=== PATIENT | male | born 1995 | race African-American/Black ===

== ENCOUNTER 2017-11-08 21:07 | Inpatient (IN) | payer SELFPAY ==
[~2017-11-08] VITALS: Ht 180.3 cm; Wt 68.0 kg
[~2017-11-08 21:07] MED LIST: HUMALOG100 UNITS/ SQ; Insulin Detemir SQ; KLOR-CON M2020 MEQ PO; LEVEMIR100 UNIT/1 SC; NOVOLIN R100 UNIT/1; NOVOLOG100 UNIT/1 SC
[2017-11-08] MEDS ORDERED: SODIUM CHLORIDE 0.9% 1000ML 1,000 ML IV STA (21:35)
[2017-11-08] MEDS ORDERED: SODIUM CHLORIDE 0.9% 1000ML 1,000 ML ONE (21:36)
[2017-11-08 21:50] LABS: BASOPHILS # (AUTO) 0.1 (0.0-0.1); BASOPHILS % 0.6 % (0.0-1.0); HEMATOCRIT 53.1 % (38.2-49.6); HEMOGLOBIN 18.2 g/dL (14.0-18.0); LYMPHOCYTES % 6.6 % (18.0-39.1); MEAN CORPUSCULAR HEMOGLOBIN 32.5 pg (28-32); MEAN CORPUSCULAR HGB CONC 34.3 g/dL (31-35); MEAN CORPUSCULAR VOLUME 94.8 fL (81-99); MONOCYTES # (AUTO) 0.7 (0.2-0.8); MONOCYTES % 4.8 % (4.4-11.3); NEUTROPHILS # (AUTO) 13.5 (2.1-6.9); NEUTROPHILS % 87.2 % (38.7-80.0); PLATELET COUNT 268 x10e3/uL (140-360); RED CELL DISTRIBUTION WIDTH 13.3 % (11.7-14.4)
[2017-11-08 21:51] LABS: BILIRUBIN,URINE NEGATIVE (NEGATIVE); KETONES,URINE 3+ (NEGATIVE); LEUKOCYTE ESTERASE ,URINE NEGATIVE (NEGATIVE); NITRITE,URINE NEGATIVE (NEGATIVE); URINE UROBILINOGEN 0.2 mg/dL (0.2 - 1)
[2017-11-08 21:54] LABS: PROTEIN,URINE DIPSTICK 1+ (NEGATIVE)
[2017-11-08 21:55] LABS: CLARITY,URINE SL CLOUDY (CLEAR); COLOR,URINE YELLOW (YELLOW)
[2017-11-08 22:09] LABS: ALANINE AMINOTRANSFERASE 16 IU/L (0-55); ALBUMIN 4.9 g/dL (3.5-5.0); ALKALINE PHOSPHATASE 215 IU/L (40-150); ANION GAP 33.3 mmol/L (8-16); BLOOD UREA NITROGEN 9 mg/dL (7-26); BUN/CREATININE RATIO 6 (6-25); CALCIUM 9.7 mg/dL (8.4-10.2); CHLORIDE 106 mmol/L (98-107); CREATINE KINASE 40 IU/L (30-200); CREATININE, SERUM 1.63 mg/dL (0.72-1.25); EST GLOMERULAR FILTRATION RATE > 60 ML/MIN (60-); POTASSIUM 3.3 mmol/L (3.5-5.1); SODIUM 141 mmol/L (136-145)
[2017-11-08 22:10] LABS: TROPONIN I 0.011 ng/mL (0-0.300)
[2017-11-08 22:11] LABS: BACTERIA,URINE RARE /HPF; EPITHELIAL CELLS,URINE RARE /LPF; RBC,URINE 0-5 /HPF (0-5)
[2017-11-08 22:15] LABS: CARBON DIOXIDE 5 mmol/L (22-29); GLUCOSE 425 mg/dL (74-118)
--- NOTE | 2017-11-08 22:25 | Diagnostic Imaging Report ---
CHEST SINGLE (PORTABLE), 11/08/2017 9:59 PM Technique: CHEST SINGLE (PORTABLE) Comparison: None available. Clinical history: 01/01/2017 Findings: Unremarkable appearance of the heart, mediastinum, lungs and pleural spaces. Impression: 1. Lines/Tubes: None 2. No acute abnormality. Signed by: Dr Ellen Haro MD on 11/08/2017 10:22 PM
[2017-11-08 22:26] LABS: ABG PH 7.01 (7.31-7.41)
[2017-11-08] MEDS ORDERED: INSULIN DETEMIR 100 UNIT/ML PEN SQ PRN (22:30)
[2017-11-08] MEDS ORDERED: POTASSIUM CHLORIDE 20MEQ/100ML 200 ML IV PRN (22:30)
[2017-11-08] MEDS ORDERED: DEXTROSE 50% SYRINGE 50 ML IV PRN (22:30)
[2017-11-08] MEDS ORDERED: MAGNESIUM SULF 1GRAM/DEXTROSE 100 ML IV PRN (22:30)
[2017-11-08] MEDS ORDERED: KCL 20MEQ/.9 SOD CHL 1,000 ML IV ONE (22:45)
[2017-11-08] MEDS: INSULIN REGULAR, HUMAN 3ML VL 300 UNIT in SODIUM CHLORIDE 0.45% 100 ML 300 ML IV SCH ×2 (22:55)
[2017-11-08] MEDS: SODIUM CHLORIDE 0.9% 1000ML 1,000 ML IV SCH (22:55)
[2017-11-08] MEDS ORDERED: CEFTRIAXONE SOD 1 GM VIAL IV STA (23:06)
[2017-11-08] MEDS ORDERED: MORPHINE SULFATE 2 MG/ML SYR IV PRN (23:15)
[2017-11-09] MEDS: INSULIN REGULAR, HUMAN 3ML VL 300 UNIT in SODIUM CHLORIDE 0.45% 100 ML 300 ML IV SCH ×8 (00:04→05:15)
[2017-11-09] MEDS: SODIUM CHLORIDE 0.9% 1000ML 1,000 ML IV SCH ×5 (02:35→23:25)
[2017-11-09 03:20] LABS: BLOOD UREA NITROGEN 7 mg/dL (7-26); BUN/CREATININE RATIO 6 (6-25); CALCIUM 8.6 mg/dL (8.4-10.2); CHLORIDE 118 mmol/L (98-107); CREATININE, SERUM 1.19 mg/dL (0.72-1.25); EST GLOMERULAR FILTRATION RATE > 60 ML/MIN (60-); GLUCOSE 240 mg/dL (74-118); MAGNESIUM 1.8 MG/DL (1.3-2.1); SODIUM 140 mmol/L (136-145)
[2017-11-09 03:21] LABS: CARBON DIOXIDE 6 mmol/L (22-29)
[2017-11-09] MEDS: DEXTROSE 5%/0.45% SOD CHL 1,000 ML IV SCH ×4 (04:14→10:12)
[2017-11-09] MEDS: ONDANSETRON HCL INJ 2 MG/ML VIAL IV PRN ×2 (07:15→22:08)
[2017-11-09 07:20] LABS: TROPONIN I < 0.001 ng/mL (0-0.300)
[2017-11-09 07:24] LABS: ANION GAP 15.3 mmol/L (8-16); BLOOD UREA NITROGEN 6 mg/dL (7-26); BUN/CREATININE RATIO 5 (6-25); CALCIUM 8.7 mg/dL (8.4-10.2); CARBON DIOXIDE 10 mmol/L (22-29); CHLORIDE 116 mmol/L (98-107); CREATINE KINASE 33 IU/L (30-200); CREATININE, SERUM 1.18 mg/dL (0.72-1.25); EST GLOMERULAR FILTRATION RATE > 60 ML/MIN (60-); GLUCOSE 250 mg/dL (74-118); MAGNESIUM 1.8 MG/DL (1.3-2.1); POTASSIUM 3.3 mmol/L (3.5-5.1); SODIUM 138 mmol/L (136-145)
[2017-11-09] MEDS: POTASSIUM CHLORIDE 20MEQ/100ML 100 ML INJ PRN (08:12)
[2017-11-09 10:52] LABS: BASOPHILS % 0.3 % (0.0-1.0); HEMATOCRIT 43.8 % (38.2-49.6); HEMOGLOBIN 15.7 g/dL (14.0-18.0); LYMPHOCYTES # (AUTO) 1.2 (1.0-3.2); LYMPHOCYTES % 12.4 % (18.0-39.1); MEAN CORPUSCULAR HEMOGLOBIN 32.6 pg (28-32); MEAN CORPUSCULAR HGB CONC 35.8 g/dL (31-35); MEAN CORPUSCULAR VOLUME 91.1 fL (81-99); MONOCYTES # (AUTO) 1.1 (0.2-0.8); NEUTROPHILS # (AUTO) 7.4 (2.1-6.9); NEUTROPHILS % 75.6 % (38.7-80.0); PLATELET COUNT 209 x10e3/uL (140-360); RED BLOOD COUNT 4.81 x10e6/uL (4.3-5.7); RED CELL DISTRIBUTION WIDTH 13.2 % (11.7-14.4)
[2017-11-09 11:10] LABS: ANION GAP 14.3 mmol/L (8-16); BLOOD UREA NITROGEN 7 mg/dL (7-26); BUN/CREATININE RATIO 7 (6-25); CALCIUM 8.9 mg/dL (8.4-10.2); CARBON DIOXIDE 12 mmol/L (22-29); CHLORIDE 115 mmol/L (98-107); CREATININE, SERUM 1.02 mg/dL (0.72-1.25); EST GLOMERULAR FILTRATION RATE > 60 ML/MIN (60-); GLUCOSE 215 mg/dL (74-118); MAGNESIUM 1.7 MG/DL (1.3-2.1); POTASSIUM 3.3 mmol/L (3.5-5.1); SODIUM 138 mmol/L (136-145)
[2017-11-09] MEDS ORDERED: DEXTROSE 50% SYRINGE 50 ML IV PRN (11:30)
[2017-11-09] MEDS: CEFTRIAXONE SOD 1 GM in WATER STERILE 10ML VIAL 10 ML IV SCH ×2 (11:45→23:25)
[2017-11-09] MEDS: INSULIN DETEMIR 100 UNIT/ML PEN SQ SCH ×2 (11:55→22:08)
[2017-11-09] MEDS: INSULIN REGULAR, HUMAN 100 UNIT/1 ML 3ML VIAL SQ SCH ×3 (12:25→22:08)
--- NOTE | 2017-11-09 14:24 | History and Physical ---
PRIMARY CARE PROVIDER: Dr. Agustina Ceja at the [facility]. CHIEF COMPLAINT: Abdominal pain with nausea and vomiting. HISTORY OF PRESENT ILLNESS: Mr. Lomeli is a 22-year-old juvenile onset diabetic who has been out of Levemir and unable to fill it due to financial concerns. Has been taking only regular insulin intermittently. Presents now with abdominal pain, nausea, vomiting, and laboratory evidence of DKA. REVIEW OF SYSTEMS: He denies fever, chills or weight loss. He denies sinus congestion or sore throat. He denies chest pain or palpitations. He denies shortness of breath, wheezing or cough. He has generalized abdominal pain with nausea and vomiting. No diarrhea. No melena. He denies dysuria or flank pain. He denies rash or pruritus. He denies joint pain or swelling. He denies headache, vertigo or loss of consciousness. He denies depression, agitation, homicide, or suicidal ideation. 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 He normally takes Levemir 10 units at night and 14 units in the daytime along with regular insulin on sliding scale. He has had no surgery. ALLERGIES: HE HAS NO KNOWN DRUG ALLERGIES. FAMILY HISTORY: Unremarkable. SOCIAL HISTORY: The patient is . [place] is his primary language. He does not smoke, drink or use illegal drugs. He is generally independent functioning. PHYSICAL EXAMINATION PSYCHIATRIC: He is alert and oriented times 3 with normal mood and affect. CONSTITUTIONAL: He has a normal body habitus. He is in no acute distress. VITAL SIGNS: Blood pressure 125/87, pulse 85 and regular, respiratory rate 18, O2 sat 100% on room air, temperature 99.1. HEENT: Head is atraumatic. His eyes are anicteric with clear conjunctivae. Ears and nares are without erythema or discharge. Oropharynx is clear. NECK: Supple. No mass or thyromegaly. LYMPHATIC SYSTEM: He has no palpable cervical, axillary or inguinal adenopathy. CARDIOVASCULAR: His heart has a regular rate and rhythm without murmur or extra heart sounds. He has no carotid bruit. He has no peripheral edema. He has palpable dorsal pedal pulse. RESPIRATORY: Lungs are clear to auscultation and percussion with normal respiratory effort. GASTROINTESTINAL: His abdomen is soft without organomegaly, masses or tenderness. He has normal bowel sounds present. CUTANEOUS: His skin is warm and dry to touch with no rash or skin breakdown. MUSCULOSKELETAL: His joints are in normal alignment without erythema or swelling. He has no calf tenderness. NEUROLOGIC: Nonfocal with intact cranial nerves and no motor or sensory deficits. DIAGNOSTIC STUDIES: Chest x-ray shows no acute disease. His UA shows 6-10 white cells. Urine culture is pending. His troponin is less than 0.001. Blood gas showed a pH of 7.01, CO2 11 and O2 of 138. His chemistry profile showed a potassium 3.3, sodium 141, chloride 106, CO2 5 with an anion gap of 23. Glucose 425. Creatinine 1.63, BUN 9 for a normal GFR. Calcium 9.7. Magnesium 2.1. After hydration and overnight insulin drip, the patient has a potassium of 3.3. The rest of his electrolytes are normal. CO2 is 10. He has a normal anion gap of about 15. His creatinine is 1.178 and BUN 6 for a normal GFR. Calcium 8.7. Glucose 250. Magnesium 1.8. His transaminases and bilirubin are normal. Alk phos is elevated at 215 likely due to hepatic steatosis. His CBC shows a white count of 15.4 with 87% neutrophils, 7% lymphocytes, 5% monocytes. Hemoglobin 18.2, hematocrit 53.1 and platelet count of 268,000. IMPRESSION AND PLAN: Diabetic ketoacidosis. The patient was given initially Levemir 40 unit dose and then started on the diabetic ketoacidosis protocol with reduced insulin dose of 3 units per hour since he is a type 1 diabetic along with the intravenous fluids and D5 as needed. Monitor potassium and magnesium with replacement per protocol. The patient's anion gap has normalized. His CO2 has come up to 5. He has a base met pending at the moment. If his CO2 has improved and his anion gap remains normal, then will stop the insulin drip. Start Levemir and sliding scale insulin, and advance diet and transfer to the floor. Currently, the patient is in the intensive care unit. Sixty minutes of critical care time spent with the patient on this H and P. Job#: [id number] RI
[2017-11-09 16:18] LABS: CREATINE KINASE MB 0.6 ng/mL (0.00-5.00); TROPONIN I 0.002 ng/mL (0-0.300)
[2017-11-09 16:20] VITALS: BP 109/53
[2017-11-09 16:47] VITALS: BP 149/80
[2017-11-09 20:36] VITALS: BP 123/68
[2017-11-09 22:08] VITALS: BP 123/68
[2017-11-09] MEDS ORDERED: CEFTRIAXONE SOD 1 GM VIAL ONE (23:19)
[2017-11-10] VITALS (8 sets, daily range): BP systolic 114–144; BP diastolic 71–91
[2017-11-10] MEDS: INSULIN REGULAR, HUMAN 100 UNIT/1 ML 3ML VIAL SQ SCH ×4 (07:30→21:00)
[2017-11-10 08:04] LABS: BASOPHILS % 0.4 % (0.0-1.0); EOSINOPHILS % 0.1 % (0.0-6.0); HEMATOCRIT 40.8 % (38.2-49.6); LYMPHOCYTES # (AUTO) 1.6 (1.0-3.2); LYMPHOCYTES % 21.5 % (18.0-39.1); MEAN CORPUSCULAR HEMOGLOBIN 32.2 pg (28-32); MEAN CORPUSCULAR HGB CONC 36.8 g/dL (31-35); MEAN CORPUSCULAR VOLUME 87.6 fL (81-99); MONOCYTES # (AUTO) 0.6 (0.2-0.8); MONOCYTES % 8.2 % (4.4-11.3); NEUTROPHILS # (AUTO) 5.1 (2.1-6.9); NEUTROPHILS % 69.4 % (38.7-80.0); PLATELET COUNT 209 x10e3/uL (140-360); RED BLOOD COUNT 4.66 x10e6/uL (4.3-5.7); RED CELL DISTRIBUTION WIDTH 12.7 % (11.7-14.4)
[2017-11-10 08:21] LABS: ANION GAP 17.4 mmol/L (8-16); BLOOD UREA NITROGEN 6 mg/dL (7-26); BUN/CREATININE RATIO 8 (6-25); CALCIUM 8.6 mg/dL (8.4-10.2); CARBON DIOXIDE 22 mmol/L (22-29); CHLORIDE 99 mmol/L (98-107); CREATININE, SERUM 0.76 mg/dL (0.72-1.25); EST GLOMERULAR FILTRATION RATE > 60 ML/MIN (60-); MAGNESIUM 1.5 MG/DL (1.3-2.1); SODIUM 136 mmol/L (136-145)
[2017-11-10] MEDS: ONDANSETRON HCL INJ 2 MG/ML VIAL IV PRN (08:26)
[2017-11-10 08:45] LABS: POTASSIUM 2.4 mmol/L (3.5-5.1)
[2017-11-10 08:46] LABS: GLUCOSE 57 mg/dL (74-118)
[2017-11-10] MEDS: INSULIN DETEMIR 100 UNIT/ML PEN SQ SCH ×2 (09:23→21:00)
[2017-11-10] MEDS ORDERED: POTASSIUM CHL 40 MEQ in WATER STERILE 10ML VIAL 80 ML IV ONE ×2 (09:30→20:00)
[2017-11-10] MEDS ORDERED: POTASSIUM CHLORIDE 20 MEQ TAB CR PO ONE (09:30)
[2017-11-10] MEDS ORDERED: CEFTRIAXONE SOD 1 GM VIAL ONE ×2 (11:49→23:10)
[2017-11-10] MEDS: CEFTRIAXONE SOD 1 GM in WATER STERILE 10ML VIAL 10 ML IV SCH ×2 (11:52→23:28)
[2017-11-10] MEDS: SODIUM CHLORIDE 0.9% 1000ML 1,000 ML IV SCH (12:17)
--- NOTE | 2017-11-10 14:05 | Diagnostic Imaging Report ---
HISTORY: Nausea and abdominal pain TECHNIQUE: Selected static images from complete abdominal ultrasound provided for INTERPRETATION: COMPARISON: None FINDINGS: Pancreas: Visualized portions are normal. No ductal dilatation. Liver: Measures 14.8 cm in sagittal plane. The echotexture is normal. No mass in the visualized portions. Portal Vein: Proper directional flow on spectral Doppler interrogation. Biliary Tree: Normal Gallbladder: No evidence of gallstone or gallbladder wall thickening. CBD: 0.2 cm. Right Kidney: Length is 13.9 cm. Echotexture is increased. No mass or hydronephrosis. Left Kidney: Length is 13.0 cm. Echotexture is increased. No mass or hydronephrosis. Spleen: 9.4cm in length. No evidence for mass. Aorta: Measures 1.5 cm. IVC: Patent No free fluid IMPRESSION: Increased renal echotexture could be the result of dehydration or medical renal disease. No hydronephrosis. The remainder of the visualized abdomen is normal. Signed by: Dr. Eduard Dowd MD on 11/10/2017 2:01 PM
[2017-11-10] MEDS ORDERED: POTASSIUM CHLORIDE 20MEQ/100ML 100 ML IV ONE (18:00)
[2017-11-11] VITALS: BP 127/62
[2017-11-11 04:00] VITALS: BP 136/93
[2017-11-11 06:44] LABS: BASOPHILS % 0.2 % (0.0-1.0); HEMATOCRIT 38.8 % (38.2-49.6); HEMOGLOBIN 14.7 g/dL (14.0-18.0); LYMPHOCYTES # (AUTO) 1.4 (1.0-3.2); LYMPHOCYTES % 27.5 % (18.0-39.1); MEAN CORPUSCULAR HEMOGLOBIN 32.7 pg (28-32); MEAN CORPUSCULAR HGB CONC 37.9 g/dL (31-35); MEAN CORPUSCULAR VOLUME 86.2 fL (81-99); MONOCYTES # (AUTO) 0.6 (0.2-0.8); NEUTROPHILS # (AUTO) 2.9 (2.1-6.9); NEUTROPHILS % 58.7 % (38.7-80.0); PLATELET COUNT 202 x10e3/uL (140-360)
[2017-11-11 07:21] LABS: AMYLASE 25 U/L (25-125); ANION GAP 14.4 mmol/L (8-16); BLOOD UREA NITROGEN 5 mg/dL (7-26); BUN/CREATININE RATIO 8 (6-25); CALCIUM 8.4 mg/dL (8.4-10.2); CARBON DIOXIDE 31 mmol/L (22-29); CHLORIDE 91 mmol/L (98-107); CREATININE, SERUM 0.65 mg/dL (0.72-1.25); EST GLOMERULAR FILTRATION RATE > 60 ML/MIN (60-); GLUCOSE 153 mg/dL (74-118); LIPASE 4 U/L (8-78); SODIUM 134 mmol/L (136-145)
[2017-11-11 07:41] LABS: POTASSIUM 2.4 mmol/L (3.5-5.1)
[2017-11-11] MEDS ORDERED: POTASSIUM CHLORIDE 20MEQ/100ML 100 ML IV ONE (08:00)
[2017-11-11] MEDS: INSULIN REGULAR, HUMAN 100 UNIT/1 ML 3ML VIAL SQ SCH ×4 (08:29→21:30)
[2017-11-11] MEDS: ONDANSETRON HCL INJ 2 MG/ML VIAL IV PRN (08:58)
[2017-11-11] MEDS ORDERED: POTASSIUM CHL IV ONE (09:45)
[2017-11-11] MEDS ORDERED: SODIUM CHLORIDE 0.9% IV ONE (09:45)
[2017-11-11] MEDS: INSULIN DETEMIR 100 UNIT/ML PEN SQ SCH ×2 (09:53→21:30)
[2017-11-11 10:17] LABS: ANISOCYTOSIS SLIGHT; MICROCYTOSIS X; PLATELET ESTIMATE ADEQUATE; RBC MORPHOLOGY COMMENT NORMAL
[2017-11-11 10:18] LABS: PLATELET MORPHOLOGY COMMENT NORMAL
[2017-11-11] MEDS ORDERED: CEFTRIAXONE SOD 1 GM VIAL ONE ×2 (10:54→23:10)
[2017-11-11] MEDS: METOCLOPRAMIDE HCL 10 MG/2ML VIAL IV SCH ×3 (11:02→20:59)
[2017-11-11] MEDS: CEFTRIAXONE SOD 1 GM in WATER STERILE 10ML VIAL 10 ML IV SCH ×2 (11:02→23:22)
[2017-11-11 16:38] VITALS: BP 137/84
[2017-11-11] MEDS ORDERED: MAGNESIUM OXIDE 400 MG TAB PO SCH (17:00)
[2017-11-11] MEDS: SODIUM CHLORIDE 0.9% 1000ML 1,000 ML IV SCH ×2 (18:02)
[2017-11-11 20:00] VITALS: BP 119/63
[2017-11-11 22:40] VITALS: BP 119/63
[2017-11-12] VITALS (7 sets, daily range): BP systolic 108–120; BP diastolic 62–73
[2017-11-12 06:43] LABS: BASOPHILS % 0.7 % (0.0-1.0); EOSINOPHILS % 0.2 % (0.0-6.0); HEMATOCRIT 38.6 % (38.2-49.6); HEMOGLOBIN 14.1 g/dL (14.0-18.0); LYMPHOCYTES # (AUTO) 2.1 (1.0-3.2); MEAN CORPUSCULAR HEMOGLOBIN 32.3 pg (28-32); MEAN CORPUSCULAR HGB CONC 36.5 g/dL (31-35); MEAN CORPUSCULAR VOLUME 88.3 fL (81-99); MONOCYTES # (AUTO) 0.6 (0.2-0.8); MONOCYTES % 12.1 % (4.4-11.3); NEUTROPHILS # (AUTO) 1.9 (2.1-6.9); NEUTROPHILS % 41.8 % (38.7-80.0); PLATELET COUNT 191 x10e3/uL (140-360); RED BLOOD COUNT 4.37 x10e6/uL (4.3-5.7); RED CELL DISTRIBUTION WIDTH 12.1 % (11.7-14.4)
[2017-11-12 07:18] LABS: ANION GAP 12.7 mmol/L (8-16); BLOOD UREA NITROGEN 8 mg/dL (7-26); BUN/CREATININE RATIO 14 (6-25); CALCIUM 8.7 mg/dL (8.4-10.2); CARBON DIOXIDE 34 mmol/L (22-29); CHLORIDE 97 mmol/L (98-107); CREATININE, SERUM 0.56 mg/dL (0.72-1.25); EST GLOMERULAR FILTRATION RATE > 60 ML/MIN (60-); GLUCOSE 75 mg/dL (74-118); MAGNESIUM 2.2 MG/DL (1.3-2.1); SODIUM 141 mmol/L (136-145)
[2017-11-12 07:19] LABS: POTASSIUM 2.7 mmol/L (3.5-5.1)
[2017-11-12] MEDS: INSULIN REGULAR, HUMAN 100 UNIT/1 ML 3ML VIAL SQ SCH ×4 (07:30→21:00)
[2017-11-12] MEDS ORDERED: POTASSIUM CHLORIDE 10MEQ/100ML 200 ML IV ONE (08:15)
[2017-11-12] MEDS: METOCLOPRAMIDE HCL 10 MG/2ML VIAL IV SCH ×4 (08:25→21:38)
[2017-11-12] MEDS: NPH, HUMAN INSULIN ISOPHANE 100 UNIT/1 ML 3ML VIAL SQ SCH ×2 (08:26→21:00)
[2017-11-12] MEDS ORDERED: CEFTRIAXONE SOD 1 GM VIAL ONE ×2 (09:07→23:04)
[2017-11-12] MEDS: CEFTRIAXONE SOD 1 GM in WATER STERILE 10ML VIAL 10 ML IV SCH ×2 (12:07→23:00)
[2017-11-12] MEDS: POTASSIUM CHL 40 MEQ in WATER STERILE 2 80 ML IV SCH ×2 (12:07→14:40)
[2017-11-12] MEDS ORDERED: SODIUM CHLORIDE 0.9% 500ML 500 ML ONE (15:11)
[2017-11-12] MEDS: POTASSIUM CHLORIDE 20MEQ/100ML 100 ML INJ PRN (23:14)
[2017-11-13] VITALS: BP 122/59
[2017-11-13 04:00] VITALS: BP 113/66
[2017-11-13] MEDS: METOCLOPRAMIDE HCL 10 MG/2ML VIAL IV SCH (07:30)
[2017-11-13 08:11] LABS: ANION GAP 12.9 mmol/L (8-16); BASOPHILS % 0.6 % (0.0-1.0); BLOOD UREA NITROGEN 7 mg/dL (7-26); BUN/CREATININE RATIO 9 (6-25); CALCIUM 8.5 mg/dL (8.4-10.2); CARBON DIOXIDE 32 mmol/L (22-29); CHLORIDE 96 mmol/L (98-107); CREATININE, SERUM 0.78 mg/dL (0.72-1.25); EOSINOPHILS % 1.2 % (0.0-6.0); EST GLOMERULAR FILTRATION RATE > 60 ML/MIN (60-); GLUCOSE 314 mg/dL (74-118); HEMATOCRIT 36.3 % (38.2-49.6); HEMOGLOBIN 13.2 g/dL (14.0-18.0); LYMPHOCYTES # (AUTO) 1.5 (1.0-3.2); LYMPHOCYTES % 42.6 % (18.0-39.1); MEAN CORPUSCULAR HEMOGLOBIN 32.7 pg (28-32); MEAN CORPUSCULAR HGB CONC 36.4 g/dL (31-35); MEAN CORPUSCULAR VOLUME 89.9 fL (81-99); MONOCYTES # (AUTO) 0.3 (0.2-0.8); MONOCYTES % 9.6 % (4.4-11.3); NEUTROPHILS # (AUTO) 1.6 (2.1-6.9); NEUTROPHILS % 45.7 % (38.7-80.0); PLATELET COUNT 198 x10e3/uL (140-360); POTASSIUM 3.9 mmol/L (3.5-5.1); RED BLOOD COUNT 4.04 x10e6/uL (4.3-5.7); SODIUM 137 mmol/L (136-145)
[2017-11-13 08:20] VITALS: BP 115/71
[2017-11-13] MEDS: INSULIN REGULAR, HUMAN 100 UNIT/1 ML 3ML VIAL SQ SCH (08:30)
[2017-11-13] MEDS: NPH, HUMAN INSULIN ISOPHANE 100 UNIT/1 ML 3ML VIAL SQ SCH (08:31)
[2017-11-13] MEDS ORDERED: HUMULIN N100 UNITS/ SQ (09:18)
[2017-11-13] MEDS ORDERED: HUMULIN R100 UNIT/2 SQ (09:18)
[2017-11-13] MEDS ORDERED: METOCLOPRAMIDE10 MG PO (09:18)
--- NOTE | 2017-11-13 16:56 | Discharge Summary ---
ADMITTING DIAGNOSES 1. Diabetic ketoacidosis. 2. Type 1 diabetes. 3. Noncompliance with medication. DISCHARGE DIAGNOSES 1. Diabetic ketoacidosis. 2. Type 1 diabetes. 3. Noncompliance with medication. HISTORY: The patient has a history of acute, juvenile onset type 1 diabetes, insulin dependent. He takes 10 units of Levemir at night and 14 in the daytime along with regular insulin on sliding scale. He has no surgical history. HOSPITAL COURSE: A 22-year-old male who presented with abdominal pain, nausea and vomiting and evidence of DKA. He states he has been unable to fill his prescription and has only been taking regular insulin intermittently. The patient was supposed to be admitted to ICU, but the unit was full, so he was sent to med/surg. He was started on an insulin drip. Chest x-ray on admission showed no acute abnormalities. The patient continued to complain of abdominal pain and nausea, so an ultrasound of the abdomen was completed and showed no hydronephrosis and normal abdomen. The patient was weaned off of the insulin drip and was taking Levemir, regular insulin 10 units t.i.d. with meals and sliding scale. The patient's magnesium and potassium were repleted many times. At the time of discharge, the potassium is 3.9. Hemoglobin A1c was found to be 11.6. DISCHARGE LABS: WBC of 3.45, hemoglobin 13.2, hematocrit 36.3. The patient denies any bleeding. Sodium 137, potassium 3.9, magnesium 2.0, calcium of 8.5. The patient was discharged home on 15 units NPH. The vial given in the hospital was given to the patient by the nurse prior to discharge. The patient was not given a set dose of 10 units insulin t.i.d. He was only given the sliding scale before meals and at bedtime. The patient was also sent home on Reglan 10 mg t.i.d. p.r.n. nausea and vomiting. The patient is tolerating diet and aware that he needs to eat when giving himself insulin and follow up with primary care physician in one to two weeks. Dictated by: Kizzy Becerril NP ANA CAMEJO MD Job#: [id number] GH
== END 2017-11-13 10:52 | disposition home or self-care (01) | DRG 639 ==
LOC: ER 21:07 → ERHOLD 23:30 → MED/SURG 11-09 14:37
PROVIDERS: ADMIT Internal Medicine; ATTEND Internal Medicine
DX: E10.10 Type 1 diabetes mellitus with ketoacidosis without coma (principal); E83.41 Hypermagnesemia; Z91.14 Patient's other noncompliance with medication regimen; Z79.4 Long term (current) use of insulin; E87.6 Hypokalemia; R11.0 Nausea; R10.9 Unspecified abdominal pain
CPT/HCPCS: 36415; 36600; 71010; 76700; 80048; 80053; 81001; 82150; 82550; 82553; 82805; 82948; 83036; 83690; 83735; 84132; 84484; 85025; 87040; 87086; 93005; 96360; 99284; J0696; J2405; J2765; J3475; J3480; J7030; J7040; J7050

== ENCOUNTER 2018-01-26 19:17 | Inpatient (IN) | payer BC ==
[~2018-01-26] VITALS: Ht 180.3 cm; Wt 68.1 kg
[~2018-01-26 19:17] MED LIST changes: +HUMULIN N100 UNITS/ SQ; +HUMULIN R100 UNIT/2 SQ; +METOCLOPRAMIDE10 MG PO
--- OUTSIDE RECORDS SUMMARY | 2018-01-26 19:19 | XMS REPORT ---
Author Author [facility] Address Unknown Phone Unavailable Care Team Providers Care Database Software Technician Name Role Phone ANA CAMEJO Unavailable Unavailable Marco Antonio Reina Unavailable Unavailable Problems This patient has no known problems. Allergies, Adverse Reactions, Alerts This patient has no known allergies or adverse reactions. Medications This patient has no known medications. Results Test Description Test Time Test Comments Text Results Atomic Results Result Comments Aerobic bacterial blood culture 2017-06-23 12:23:00 Comment Bed:4 Only Aerobic Pediatric Blood Culture Bottle Received No growth in 5 days.^No growth in 5 days.^L Blood anaerobic culture 2017-06-23 12:23:00 Comment Bed:4 Only Aerobic Pediatric Blood Culture Bottle Received Not Done^Not Done^L^ND Potassium measurement 2017-06-20 21:27:00 Potassium measurement (test fpll=RZL1829) 3.6 meq/L 3.6-5.0 Primary Language EnglishGlucose blood oodryvrokol0912-18-56 20:54:00* Test Item Value Reference Range Comments Glucose blood fingerstick (test toyf=UUY6130) 174 mg/dL 65-120 Potassium onecmakbkrx0648-06-02 18:55:00* Test Item Value Reference Range Comments Potassium measurement (test hrti=LJU0867) 2.8 meq/L 3.6-5.0 Repeated, Pt history, Broadcast at 1855 by Zan[employer] Primary Language EnglishGlucose blood wtwjljaqcpe4559-82-12 16:12:00* Test Item Value Reference Range Comments Glucose blood fingerstick (test rgjt=KEG3156) 184 mg/dL 65-120 Glucose blood vigrocrpsog3043-80-32 12:15:00* Test Item Value Reference Range Comments Glucose blood fingerstick (test yfst=ZYC7501) 191 mg/dL 65-120 Glucose blood gwyxwxpicgz0921-88-47 12:15:00* Test Item Value Reference Range Comments Glucose blood fingerstick (test afns=WOH5371) 232 mg/dL 65-120 Glucose blood hobmwwwgizq6917-32-56 08:04:00* Test Item Value Reference Range Comments Glucose blood fingerstick (test zrmn=HFL8525) 94 mg/dL 65-120 Glucose blood kgbrbbjfocc2440-65-49 08:04:00* Test Item Value Reference Range Comments Glucose blood fingerstick (test tvtz=CVE6563) 60 mg/dL 65-120 Potassium pajxeaohcrm4763-67-49 07:24:00* Test Item Value Reference Range Comments Potassium measurement (test wdxg=MPL3707) 2.6 meq/L 3.6-5.0 Repeated, Pt history, Broadcast at 0724 by [facility] Primary Language EnglishComplete blood count (CBC) with automated white blood cell (WBC) mrvpmobekrgg3895-54-77 04:42:00* Test Item Value Reference Range Comments White blood cell count (test jvug=QWT4169) 5.8 4.3-10.9 Blood erythrocytes count (number/volume) (test ytqq=79665-4) 4.62 M/ul 4.33- 5.43 Hemoglobin measurement (test ajiz=QLR2908) 15.1 g/dL 13.6-17.9 Blood hematocrit (volume fraction) (test tbal=81006-1) 41.9 % 39.6-49.0 MCV (test isyx=10956-0) 90.6 fL 80-100 MCH (test cqhq=47042-3) 32.7 pg 27.0-35.0 MCHC (test code=MCHC) 36.1 g/dL 32.0-36.0 Platelets (test code=PLT) 191 152-406 Red Cell Distribution Width (test code=RDW) 13.1 % 12.1-15.2 Blood platelet mean volume (test fqfu=54536-4) 7.6 fL 7.6-11.3 Neutrophils % (test code=SID%) 49.5 % 41.7-73.7 Lymphocytes/leuk NFr Bld (test kbmj=11088-9) 35.3 % 15.3-44.8 Monocyte percentage (test gxfi=4983-3) 14.4 % 3.3-12.3 Eosinophil % (test hmpl=637-4) 0.2 % 0-4.4 Basophil % (test vjlt=23408-5) 0.6 % 0-1.3 Absolute neutrophil count (test ewji=124-5) 2.9 1.8-8.0 Absolute lymphocyte count (test pfjp=59803-8) 2.1 0.7-4.9 Absolute monocyte count (test cgex=779-1) 0.8 0.1-1.3 Absolute Eosinophils (test code=EOA) 0.0 0-0.5 Absolute Basophils (test code=BASA) 0.0 0-0.5 Primary Language EnglishBasic Metabolic Deafr9801-17-39 04:33:00* Test Item Value Reference Range Comments Sodium level (test rklr=OQR8708) 132 meq/L 135-145 2.6Repeated & Called to ISA FRANCOIS RN on 06/20/17 at 0432 by SYDNEE Was there 100% Readback? Y Chloride measurement (test mmqe=SKI1110) 91 meq/L 101-111 Bicarbonate (test code=CO2) 33 meq/L 21-31 Glucose measurement (test bhxl=CWH6327) 64 mg/dL 65-120 ADA Clinical Practice Recommendation: <100 mg/dl=Normal Fasting Glucose BUN Bld-mCnc (test ogct=4695-3) 5 mg/dL 6-20 Creatinine measurement (test nvbl=BRG3490) 0.41 mg/dL 0.61-1.24 The creatinine method used has been calibrated to be traceable to Isotope dilution Mass Spectrometry (IDMS). For more information: www.nkdep.nih.gov Estimated glomerular filtration rate (GFR) determination (test xobs=98888-5) > 90 mL =/>90 FOR CHRONIC KIDNEY DISEASE: GFR STAGE DESCRIPTION =/>90 STAGE 1 NORMAL--OR-- MINIMAL KIDNEY DAMAGE WITH NORMAL GFR 60-89 STAGE 2 MILD DECREASE IN GFR 30-59 STAGE 3 MODERATE DECREASE IN GFR 15-29 STAGE 4 SEVERE DECREASE IN GFR <15 STAGE 5 KIDNEY FAILURE The Glomerular Filtration Rate (GFR) has been calculated using the IDMS-Traceable MDRD Study Equation. Calcium Level (test code=CA) 8.1 mg/dL 8.5-10.5 Primary Language Portuguese Primary Language EnglishMagnesium lbtnzjonemo8058-14- 10 04:33:00* Test Item Value Reference Range Comments Magnesium measurement (test jepi=74086-2) 1.9 mg/dL 1.8-2.5 Primary Language Portuguese Primary Language EnglishPotassium ojqvnomeols2240-78- 09 22:08:00* Test Item Value Reference Range Comments Potassium measurement (test ugnk=AJS8228) 2.8 meq/L 3.6-5.0 Repeated & Called to ISA FRANCOIS RN on 06/19/17 at 2208 by REBECCA Was there 100% Readback? Y Primary Language EnglishGlucose blood zrshgauonsu7400-50-49 20:02:00* Test Item Value Reference Range Comments Glucose blood fingerstick (test xbvw=SWX8514) 255 mg/dL 65-120 Glucose blood lpymxvltiav0795-50-26 19:03:00* Test Item Value Reference Range Comments Glucose blood fingerstick (test xakh=LTG5975) 297 mg/dL 65-120 Basic Metabolic Gdsfh8190-83-13 13:07:00* Test Item Value Reference Range Comments Sodium level (test vesl=YMK0373) 126 meq/L 135-145 3.3 Chloride measurement (test naha=EXA3016) 92 meq/L 101-111 Bicarbonate (test code=CO2) 21 meq/L 21-31 Glucose measurement (test ckpk=IHR1508) 311 mg/dL 65-120 ADA Clinical Practice Recommendation: <100 mg/dl=Normal Fasting Glucose BUN Bld-mCnc (test xmdi=1064-0) 9 mg/dL 6-20 Creatinine measurement (test rsgj=LGE8494) 0.60 mg/dL 0.61-1.24 The creatinine method used has been calibrated to be traceable to Isotope dilution Mass Spectrometry (IDMS). For more information: www.nkdep.nih.gov Estimated glomerular filtration rate (GFR) determination (test tpfi=35014-6) > 90 mL =/>90 FOR CHRONIC KIDNEY DISEASE: GFR STAGE DESCRIPTION =/>90 STAGE 1 NORMAL--OR-- MINIMAL KIDNEY DAMAGE WITH NORMAL GFR 60-89 STAGE 2 MILD DECREASE IN GFR 30-59 STAGE 3 MODERATE DECREASE IN GFR 15-29 STAGE 4 SEVERE DECREASE IN GFR <15 STAGE 5 KIDNEY FAILURE The Glomerular Filtration Rate (GFR) has been calculated using the IDMS-Traceable MDRD Study Equation. Calcium Level (test code=CA) 8.2 mg/dL 8.5-10.5 Primary Language EnglishGlucose blood ujdqgkuwuij4270-07-28 11:57:00* Test Item Value Reference Range Comments Glucose blood fingerstick (test fbul=GZA6331) 265 mg/dL 65-120 Glucose blood nwwrphpofug2139-83-76 11:57:00* Test Item Value Reference Range Comments Glucose blood fingerstick (test ufdm=LAR9217) 142 mg/dL 65-120 Hemoglobin A1c ephjsddeege5719-71-87 09:13:00* Test Item Value Reference Range Comments Hemoglobin A1c measurement (test qyiv=87940-4) 12.1 % 4-6.0 Primary Language EnglishLipid ytrcwmm7046-10-50 06:06:00* Test Item Value Reference Range Comments Cholesterol measurement (test ndsd=YUH9632) 185 mg/dL <200 51 HDL Cholesterol (test code=HDL) 38 mg/dL 27-67 Serum or plasma cholesterol in LDL measurement by calculation (mass/volume) ( test ihmj=50109-0) 137 <130 This LDL is a calculated result; a more accurate analysis can be performed using the direct LDL methodology. Total cholesterol/cholesterol in HDL (percentile) (test ciwm=9162-2) 4.87 LIPID RISK RATIOS: 1/2 AVERAGE AVERAGE 2X AVERAGE 3X AVERAGE ------- MALE 3.43 4.97 9.55 23.39 FEMALE 3.27 4.44 7.05 11.04 ----- Primary Language EnglishAcetone Avvqg2457-35-25 06:06:00* Test Item Value Reference Range Comments Acetone Level (test code=ACET) SMALL NEG Primary Language EnglishMagnesium ayprfaoaveu3041-61-14 06:06:00* Test Item Value Reference Range Comments Magnesium measurement (test lrvn=03511-6) 2.0 mg/dL 1.8-2.5 Primary Language EnglishThyroid Stimulating Rvdhqly1908-01-05 06:06:00* Test Item Value Reference Range Comments Thyroid Stimulating Hormone (test code=TSH) 1.11 [iU]/L 0.34-5.60 Primary Language EnglishArterial blood gas gmfsozgdgfh6293-47-25 05:35:00* Test Item Value Reference Range Comments Blood gas pH assay (test qnti=38110-7) 7.43 7.35-7.45 +ID,;RBA STICK;21% FIO2@Other Dr: Repeated & Called to TRACEY MONROE on 06/19/17 at 0535 by DE Was there 100% Readback? Y Blood partial pressure of carbon dioxide measurement (test blzd=78698-6) 29.8 mm[Hg] 35-45 Blood partial pressure of oxygen measurement (test qgkv=14085-4) 110.0 mm[Hg] 75-100 Blood Gas HCO3 (test code=ABGHCO3) 19.2 mmol/L 22-28 Blood base excess determination (test qwuq=6358-2) -4.4 mmol/L Arterial blood oxygen saturation measurement (test eazc=5671-3) 98.4 % 92- 98.5 Arterial blood fractional oxyhemoglobin (test qmqy=5912-3) 95.3 % 94-97 Arterial blood carboxyhemoglobin measurement (test eawq=1683-9) 1.6 % 0-1.5 Blood Gas Methemoglobin (test code=ABGMETHB) 1.6 % 0-1.5 Blood Gas THB (test code=ABGTHB) 15.5 g/dL 12-18 Blood Gas Inspired Oxygen (test code=ABGFIO2) 21.0 % Complete blood count (CBC) with automated white blood cell (WBC) wwgnxjrtkwrg1098-12-35 05:34:00* Test Item Value Reference Range Comments White blood cell count (test wsfn=NKI8200) 7.7 4.3-10.9 Blood erythrocytes count (number/volume) (test xtgi=73134-3) 4.74 M/ul 4.33- 5.43 Hemoglobin measurement (test dqcd=XGY3097) 15.7 g/dL 13.6-17.9 Blood hematocrit (volume fraction) (test ttyr=61904-4) 43.7 % 39.6-49.0 MCV (test kdpt=43677-5) 92.2 fL 80-100 MCH (test ppub=89413-1) 33.1 pg 27.0-35.0 MCHC (test code=MCHC) 35.9 g/dL 32.0-36.0 Platelets (test code=PLT) 227 152-406 Red Cell Distribution Width (test code=RDW) 12.9 % 12.1-15.2 Blood platelet mean volume (test vpma=40344-7) 7.7 fL 7.6-11.3 Neutrophils % (test code=SID%) 62.1 % 41.7-73.7 Lymphocytes/leuk NFr Bld (test ifgt=86522-8) 24.1 % 15.3-44.8 Monocyte percentage (test lodg=2058-2) 13.2 % 3.3-12.3 Eosinophil % (test lmfp=252-0) 0.2 % 0-4.4 Basophil % (test uxwd=83784-0) 0.4 % 0-1.3 Absolute neutrophil count (test nlie=372-1) 4.8 1.8-8.0 Absolute lymphocyte count (test egnr=53545-8) 1.8 0.7-4.9 Absolute monocyte count (test sqnl=779-8) 1.0 0.1-1.3 Absolute Eosinophils (test code=EOA) 0.0 0-0.5 Absolute Basophils (test code=BASA) 0.0 0-0.5 Primary Language [facility] Metabolic Kudta2459-79-88 02:50:00* Test Item Value Reference Range Comments Sodium level (test uhvm=FLI8764) 127 meq/L 135-145 2.5Repeated & Called to WU ALANIS RN on 06/19/17 at 0250 by [facility] Was there 100% Readback? Y Chloride measurement (test akkv=XJH8339) 98 meq/L 101-111 Bicarbonate (test code=CO2) 20 meq/L 21-31 Glucose measurement (test orcu=TEJ6326) 158 mg/dL 65-120 ADA Clinical Practice Recommendation: <100 mg/dl=Normal Fasting Glucose BUN Bld-mCnc (test omed=4545-4) 12 mg/dL 6-20 Creatinine measurement (test mmus=ZXT2734) 0.75 mg/dL 0.61-1.24 The creatinine method used has been calibrated to be traceable to Isotope dilution Mass Spectrometry (IDMS). For more information: www.nkdep.nih.gov Estimated glomerular filtration rate (GFR) determination (test lvab=35188-8) > 90 mL =/>90 FOR CHRONIC KIDNEY DISEASE: GFR STAGE DESCRIPTION =/>90 STAGE 1 NORMAL--OR-- MINIMAL KIDNEY DAMAGE WITH NORMAL GFR 60-89 STAGE 2 MILD DECREASE IN GFR 30-59 STAGE 3 MODERATE DECREASE IN GFR 15-29 STAGE 4 SEVERE DECREASE IN GFR <15 STAGE 5 KIDNEY FAILURE The Glomerular Filtration Rate (GFR) has been calculated using the IDMS-Traceable MDRD Study Equation. Calcium Level (test code=CA) 7.8 mg/dL 8.5-10.5 Primary Language EnglishUrine drug ggnppl0801-03-87 21:35:00* Test Item Value Reference Range Comments Phencyclidine, Urine (test code=PCP) NEGATIVE Benzodiazepines (test code=BZO) NEGATIVE Urine cocaine detection by screening method (test xkwg=28953-2) Negative Amphetamines,Urine (test code=AMP) NEGATIVE Urine hzczy-5-ceiyqskryzamiipwggwf (THC) measurement (test wdcd=LMY6725) NEGATIVE Urine opiates detection (test zacy=4603-9) Negative Barbiturates (test code=BAR) NEGATIVE Oxycodone, Urine (test code=OXY) NEGATIVE Urine methylenedioxymethamphetamine (MDMA) detection (test dkjv=08436-5) Negative This urine was qualitatively tested for the following drugs at the cut-off levels listed: DRUG CUT-OFF LEVEL ---- PHENCYCLIDINE 25 ng/mL BENZODIAZEPINES 200 ng/mL COCAINE 300 ng/ mL AMPHETAMINES 1000 ng/mL TETRAHYDROCANNABINOL 50 ng/mL OPIATES 2000 ng/mL BARBITURATES 200 ng/mL OXYCODONE 300 ng/mL ECSTASY 500 ng/mL These are only preliminary test results. Positive results have not been confirmed. For a confirmed analytical result, gas chromatography/mass spectrometry is the preferred method. Results are to be used only for medical ( i.e. treatment) purposes. Unconfirmed screening results must not be used for non-medical purposes (e.g. employment testing, legal testing). Basic Metabolic Efilf4553-26-58 21:25:00* Test Item Value Reference Range Comments Sodium level (test pofb=ODK7492) 129 meq/L 135-145 2.9Repeated, Pt history, Broadcast at 2123 by WAYNESBURGHO Chloride measurement (test zfko=AQU6356) 100 meq/L 101-111 Bicarbonate (test code=CO2) 16 meq/L 21-31 Glucose measurement (test mqhx=OIX2048) 202 mg/dL 65-120 ADA Clinical Practice Recommendation: <100 mg/dl=Normal Fasting Glucose BUN Bld-mCnc (test iywa=1880-8) 12 mg/dL 6-20 Creatinine measurement (test qahl=YLQ2976) 0.66 mg/dL 0.61-1.24 The creatinine method used has been calibrated to be traceable to Isotope dilution Mass Spectrometry (IDMS). For more information: www.nkdep.nih.gov Estimated glomerular filtration rate (GFR) determination (test dvzk=78347-6) > 90 mL =/>90 FOR CHRONIC KIDNEY DISEASE: GFR STAGE DESCRIPTION =/>90 STAGE 1 NORMAL--OR-- MINIMAL KIDNEY DAMAGE WITH NORMAL GFR 60-89 STAGE 2 MILD DECREASE IN GFR 30-59 STAGE 3 MODERATE DECREASE IN GFR 15-29 STAGE 4 SEVERE DECREASE IN GFR <15 STAGE 5 KIDNEY FAILURE The Glomerular Filtration Rate (GFR) has been calculated using the IDMS-Traceable MDRD Study Equation. Calcium Level (test code=CA) 8.1 mg/dL 8.5-10.5 Primary Language EnglishGlucose blood frgkcwflswk7903-41-31 19:54:00* Test Item Value Reference Range Comments Glucose blood fingerstick (test aoky=VRT1785) 184 mg/dL 65-120 Glucose blood beatkjwexdm7396-22-00 17:43:00* Test Item Value Reference Range Comments Glucose blood fingerstick (test ijgd=PHO0955) 129 mg/dL 65-120 Glucose blood atvkzhxrrxu1844-52-28 17:43:00* Test Item Value Reference Range Comments Glucose blood fingerstick (test psbc=BFL4737) 236 mg/dL 65-120 Basic Metabolic Gznle8108-52-10 16:52:00* Test Item Value Reference Range Comments Sodium level (test mzvb=HJX7152) 129 meq/L 135-145 2.7Repeated & Called to PATRICIA MUHAMMAD RN on 06/18/17 at 1652 by REBECCA Was there 100% Readback? Y Chloride measurement (test vfdr=DIX2131) 101 meq/L 101-111 Bicarbonate (test code=CO2) 17 meq/L 21-31 Glucose measurement (test sarp=HLW7494) 201 mg/dL 65-120 ADA Clinical Practice Recommendation: <100 mg/dl=Normal Fasting Glucose BUN Bld-mCnc (test rodj=5212-3) 11 mg/dL 6-20 Creatinine measurement (test wjkc=RCT3596) 0.70 mg/dL 0.61-1.24 The creatinine method used has been calibrated to be traceable to Isotope dilution Mass Spectrometry (IDMS). For more information: www.nkdep.nih.gov Estimated glomerular filtration rate (GFR) determination (test zeof=50182-8) > 90 mL =/>90 FOR CHRONIC KIDNEY DISEASE: GFR STAGE DESCRIPTION =/>90 STAGE 1 NORMAL--OR-- MINIMAL KIDNEY DAMAGE WITH NORMAL GFR 60-89 STAGE 2 MILD DECREASE IN GFR 30-59 STAGE 3 MODERATE DECREASE IN GFR 15-29 STAGE 4 SEVERE DECREASE IN GFR <15 STAGE 5 KIDNEY FAILURE The Glomerular Filtration Rate (GFR) has been calculated using the IDMS-Traceable MDRD Study Equation. Calcium Level (test code=CA) 8.4 mg/dL 8.5-10.5 Primary Language EnglishGlucose blood ijvlokhxydt7436-70-77 15:20:00* Test Item Value Reference Range Comments Glucose blood fingerstick (test uhvi=EXO2990) 208 mg/dL 65-120 Glucose blood bbmjazuprbx7734-33-80 14:12:00* Test Item Value Reference Range Comments Glucose blood fingerstick (test dofb=DZZ2370) 199 mg/dL 65-120 Glucose blood wlflokbbfvp5418-93-16 14:03:00* Test Item Value Reference Range Comments Glucose blood fingerstick (test zqbu=PLE9386) 250 mg/dL 65-120 Glucose blood hfxuthwrgry7772-60-51 14:02:00* Test Item Value Reference Range Comments Glucose blood fingerstick (test xeyp=JWU2907) 241 mg/dL 65-120 Glucose blood uyshpckoszi3367-10-28 14:02:00* Test Item Value Reference Range Comments Glucose blood fingerstick (test cgbd=YJW6241) 224 mg/dL 65-120 Urine dipstick testing at heqft-si-zocl8609-08-08 13:41:00* Test Item Value Reference Range Comments Urine specific gravity measurement (test yxuz=9658-2) 1.010 1.005-1.030 Urine glucose detection (test dozs=1207-2) 1+ NEG Urine Ketones (test code=UKET) 3+ NEG Urine blood detection (test lwly=51125-4) Negative NEG Urine pH (test dltn=4974-1) 6.0 5.0-7.0 Urinalysis with microscopy (test fqtp=20475-1) 1+ NEG Urine nitrate measurement (test sakz=50571-5) NEGATIVE NEG Urine Leukocyte Esterase (test code=UESTR) NEGATIVE NEG Comment Bed:4 AMILCAR NEG 1+ 3+ NEG NEG 6.0 1+ Y 1.010Basic Metabolic Oamex6419-36- 08 13:00:00* Test Item Value Reference Range Comments Sodium level (test sxzd=JBI0199) 126 meq/L 135-145 3.3 Chloride measurement (test ksgk=APG2181) 100 meq/L 101-111 Bicarbonate (test code=CO2) 11 meq/L 21-31 Repeated, Pt history, Broadcast at 1300 by [facility] Glucose measurement (test kxcp=QUH5108) 269 mg/dL 65-120 ADA Clinical Practice Recommendation: <100 mg/dl=Normal Fasting Glucose BUN Bld-mCnc (test frze=3550-0) 12 mg/dL 6-20 Creatinine measurement (test wvgy=SXP1711) 0.81 mg/dL 0.61-1.24 The creatinine method used has been calibrated to be traceable to Isotope dilution Mass Spectrometry (IDMS). For more information: www.nkdep.nih.gov Estimated glomerular filtration rate (GFR) determination (test emtb=03119-8) > 90 mL =/>90 FOR CHRONIC KIDNEY DISEASE: GFR STAGE DESCRIPTION =/>90 STAGE 1 NORMAL--OR-- MINIMAL KIDNEY DAMAGE WITH NORMAL GFR 60-89 STAGE 2 MILD DECREASE IN GFR 30-59 STAGE 3 MODERATE DECREASE IN GFR 15-29 STAGE 4 SEVERE DECREASE IN GFR <15 STAGE 5 KIDNEY FAILURE The Glomerular Filtration Rate (GFR) has been calculated using the IDMS-Traceable MDRD Study Equation. Calcium Level (test code=CA) 8.5 mg/dL 8.5-10.5 Comment Bed:4Acetone Dovdm0598-00-13 12:57:00* Test Item Value Reference Range Comments Acetone Level (test code=ACET) MODERATE NEG Comment Bed:4Lactic acid horecyyzhfd7029-02-17 12:45:00* Test Item Value Reference Range Comments Lactic acid measurement (test tkzz=IVG9881) 16.4 mg/dL 4.5-19.8 Arterial blood gas jxlcyxazgor4762-51-48 12:01:00* Test Item Value Reference Range Comments Blood gas pH assay (test duvo=08410-3) 7.26 7.35-7.45 POSITIVE ID// ALLENS TEST; FIO2 21%; RIGHT RADIAL STICK.@Other Dr: Repeated & Called to JANAK ANTONY on 06/18/17 at 1200 by [employer] Was there 100% Readback? Blood partial pressure of carbon dioxide measurement (test epal=99853-6) 24.4 mm[Hg] 35-45 Blood partial pressure of oxygen measurement (test uart=63089-9) 107.0 mm[Hg] 75-100 Blood Gas HCO3 (test code=ABGHCO3) 10.7 mmol/L 22-28 Blood base excess determination (test mhkn=6636-3) -15.0 mmol/L Arterial blood oxygen saturation measurement (test xpdd=7400-9) 97.1 % 92- 98.5 Arterial blood fractional oxyhemoglobin (test qdbd=8707-7) 92.7 % 94-97 Arterial blood carboxyhemoglobin measurement (test pmot=2166-1) 1.3 % 0-1.5 Blood Gas Methemoglobin (test code=ABGMETHB) 3.2 % 0-1.5 Blood Gas THB (test code=ABGTHB) 16.5 g/dL 12-18 Blood Gas Inspired Oxygen (test code=ABGFIO2) 21.0 % Comment Bed:4Basic Metabolic Ljbbu1230-09-16 11:39:00* Test Item Value Reference Range Comments Sodium level (test dggx=NAQ0715) 124 meq/L 135-145 3.2 Chloride measurement (test aaky=BJJ6951) 95 meq/L 101-111 Bicarbonate (test code=CO2) 10 meq/L 21-31 Repeated & Called to ANA BAILEY RN on 06/18/17 at 1139 by [employer] Was there 100% Readback? YES Glucose measurement (test ztgw=PXS4997) 310 mg/dL 65-120 ADA Clinical Practice Recommendation: <100 mg/dl=Normal Fasting Glucose BUN Bld-mCnc (test qlol=6374-9) 13 mg/dL 6-20 Creatinine measurement (test ruwb=KYK7592) 0.89 mg/dL 0.61-1.24 The creatinine method used has been calibrated to be traceable to Isotope dilution Mass Spectrometry (IDMS). For more information: www.nkdep.nih.gov Estimated glomerular filtration rate (GFR) determination (test hmrs=72606-8) > 90 mL =/>90 FOR CHRONIC KIDNEY DISEASE: GFR STAGE DESCRIPTION =/>90 STAGE 1 NORMAL--OR-- MINIMAL KIDNEY DAMAGE WITH NORMAL GFR 60-89 STAGE 2 MILD DECREASE IN GFR 30-59 STAGE 3 MODERATE DECREASE IN GFR 15-29 STAGE 4 SEVERE DECREASE IN GFR <15 STAGE 5 KIDNEY FAILURE The Glomerular Filtration Rate (GFR) has been calculated using the IDMS-Traceable MDRD Study Equation. Calcium Level (test code=CA) 8.5 mg/dL 8.5-10.5 HEMOLYZED Specimen, recollect request called to ANA on 06/18/17 at 1011 by [employer] Print label to Karina (Hepatic) Atugctlk5994-47-01 11:39:00* Test Item Value Reference Range Comments Aspartate aminotransferase (AST) measurement (test yzjm=EFI9785) 16 [iU]/L 10 -42 ALT/SGPT (test code=SGPT) 13 [iU]/L 10-60 Alkaline Phosphatase (test code=ALK) 183 [iU]/L 42-121 Bilirubin total (test gglf=ELT6657) 1.2 mg/dL 0.3-1.2 Bilirubin direct (test khgo=4472-6) 0.1 mg/dL 0-0.2 Serum total protein measurement (test kggd=0013-6) 8.2 g/dL 6.0-8.3 Albumin measurement (test okcy=ILW7959) 4.5 g/dL 3.2-5.5 Globulin (test code=GLOB) 3.7 g/dL 2.3-3.5 Albumin/Globulin Ratio (test code=A/G) 1.2 1.1-1.8 HEMOLYZED Specimen, recollect request called to ANA on 06/18/17 at 1011 by [employer] Print label to LERCreatine Odsmfpgrmzuvp0893-74-25 11:39:00* Test Item Value Reference Range Comments Creatine Phosphokinase (test code=CPK) 40 [iU]/L 22-269 HEMOLYZED Specimen, recollect request called to ANA on 06/18/17 at 1011 by [employer] Print label to LERCKMB Creatine Kinase XI3563-78-01 11:39:00* Test Item Value Reference Range Comments CKMB Creatine Kinase MB (test code=CKMB) 1.2 ng/mL 0.3-4.0 HEMOLYZED Specimen, recollect request called to ANA on 06/18/17 at 1011 by [employer] Print label to LERMagnesium ajzyxdlthau7572-12-78 11:39:00* Test Item Value Reference Range Comments Magnesium measurement (test tzai=47863-0) 2.1 mg/dL 1.8-2.5 HEMOLYZED Specimen, recollect request called to ANA on 06/18/17 at 1011 by [employer] Print label to LERBrain natriuretic peptide (BNP) zmixdvpgyfp5073-91 -08 11:36:00* Test Item Value Reference Range Comments Brain natriuretic peptide (BNP) measurement (test ytey=69368-8) 44 pg/mL <= 100 Troponin (Emerg Dept Use Only)2017-06-18 10:35:00* Test Item Value Reference Range Comments Troponin (Emerg Dept Use Only) (test code=TROPED) < 0.03 <0.03 Comment Bed:4 Test Ordered to Rule Out VTE/DVT? NProthrombin time (PT) with international normalized ratio (INR)2017-06-18 10:11:00* Test Item Value Reference Range Comments PT Prothrombin Time (test code=PROTIME) 10.4 s 9.5-12.5 INR in Blood by Coagulation assay (test wjal=35622-4) 0.88 Monitor pts using INR value (not prothrombin time) INR Coumadin Therapy: Low Range ( prophylaxis) 2.0-3.0 High Range (high risk of clot formation) 2.5-3.5 Test Ordered to Rule Out VTE/DVT? N Test Ordered to Rule Out VTE/DVT? NPTT, Activated Partial [id number] 10:11:00* Test Item Value Reference Range Comments PTT, Activated Partial Thromb (test code=PTT) 25.6 s 24.3-36.9 Test Ordered to Rule Out VTE/DVT? N Test Ordered to Rule Out VTE/DVT? NComplete blood count (CBC) with automated white blood cell (WBC) [id number] 10:06:00* Test Item Value Reference Range Comments White blood cell count (test pzth=[id number]) 13.0 4.3-10.9 Blood erythrocytes count (number/volume) (test lsiv=43027-1) 5.81 M/ul 4.33- 5.43 Hemoglobin measurement (test kdre=[id number]) 19.2 g/dL 13.6-17.9 Blood hematocrit (volume fraction) (test mnnh=78812-7) 55.3 % 39.6-49.0 MCV (test rfug=71537-9) 95.3 fL 80-100 MCH (test cefc=71016-0) 33.1 pg 27.0-35.0 MCHC (test code=MCHC) 34.7 g/dL 32.0-36.0 Platelets (test code=PLT) 279 152-406 Red Cell Distribution Width (test code=RDW) 13.4 % 12.1-15.2 Blood platelet mean volume (test xbot=18601-4) 8.5 fL 7.6-11.3 Neutrophils % (test code=SID%) 83.6 % 41.7-73.7 Lymphocytes/leuk NFr Bld (test xwty=04563-0) 9.9 % 15.3-44.8 Monocyte percentage (test lsga=4780-9) 5.9 % 3.3-12.3 Eosinophil % (test mstb=998-0) 0.0 % 0-4.4 Basophil % (test xnzj=13950-9) 0.6 % 0-1.3 Absolute neutrophil count (test rnpg=438-5) 10.9 1.8-8.0 Absolute lymphocyte count (test fszy=50963-1) 1.3 0.7-4.9 Absolute monocyte count (test dcej=334-2) 0.8 0.1-1.3 Absolute Eosinophils (test code=EOA) 0.0 0-0.5 Absolute Basophils (test code=BASA) 0.1 0-0.5 US ABDOMEN COMPLETE [facility] [address] [address] Patient Name: KEVIN SHELTON MR #: [id number] : 1995 Age/Sex: 22/M Req #: [id number] Adm Physician: ANA CAMEJO MD Ordered by: Kizzy Page NP Report #: [id number] Location: MED/SURG Room/Bed: [facility] [place][note 2] _ Procedure: [id number] US/US ABDOMEN COMPLETE Exam Date: 11/10/17 Exam Time: 1330 REPORT STATUS: Signed HISTORY: Nausea and abdominal pain TECHNIQUE: Selected static images from complete abdominal ultrasound provided for INTERPRETATION: COMPARISON: None FINDINGS: Pancreas: Visualized portions are normal. No ductal dilatation. Liver: Measures 14.8 cm in sagittal plane. The echotexture is normal. No mass in the visualized portions. Portal Vein: Proper directional flow on spectral Doppler interrogation. Biliary Tree: Normal Gallbladder: No evidence of gallstone or gallbladder wall thickening. CBD: 0.2 cm. Right Kidney: Length is 13.9 cm. Echotexture is increased. No mass or hydronephrosis. Left Kidney: Length is 13.0 cm. Echotexture is increased. No mass or hydronephrosis. Spleen: 9.4cm in length. No evidence for mass. Aorta: Measures 1.5 cm. IVC: Patent No free fluid IMPRESSION: Increased renal echotexture could be the result of dehydration or medical renal disease. No hydronephrosis. The remainder of the visualized abdomen is normal. Signed by: Dr. Aubree Dowd MD on 11/10/2017 2:01 PM Dictated By: AUBREE DOWD MD 00 Transcribed By: GABY on 1400 COPY TO: KIZZY PAGE NP CHEST SINGLE (PORTABLE) [address] [address] Patient Name: KEVIN SHELTON MR #: [id number] : [birth year] Age/Sex: 22/M Req #: [id number] Adm Physician: Ordered by: OLIVA JACOB MD Report #: [id number] Location: ER Room/Bed: Procedure: [id number] DX/CHEST SINGLE (PORTABLE) Exam Date: 11/08/17 Exam Time: 2209 REPORT STATUS: Signed CHEST SINGLE (PORTABLE), 11/08/2017 9:59 PM Technique: CHEST SINGLE (PORTABLE) Comparison: None available. Clinical history: 01/01/2017 Findings: Unremarkable appearance of the heart, mediastinum, lungs and pleural spaces. Impression: 1. Lines/Tubes: None 2. No acute abnormality. Signed by: Dr Roxana Haro MD on 11/08/2017 10:22 PM Dictated By: ROXANA HARO MD 21 Transcribed By: GABY on 11/08/172221 COPY TO: OLIVA JACOB MD
[2018-01-26] MEDS ORDERED: ONDANSETRON HCL INJ 2 MG/ML VIAL IV STA (19:20)
[2018-01-26] MEDS ORDERED: SODIUM CHLORIDE 0.9% 1000ML 1,000 ML IV ONE (19:30)
[2018-01-26 19:52] LABS: BASOPHILS % 0.4 % (0.0-1.0); HEMATOCRIT 52.9 % (38.2-49.6); HEMOGLOBIN 19.4 g/dL (14.0-18.0); LYMPHOCYTES # (AUTO) 1.7 (1.0-3.2); LYMPHOCYTES % 16.1 % (18.0-39.1); MEAN CORPUSCULAR HEMOGLOBIN 31.5 pg (28-32); MEAN CORPUSCULAR HGB CONC 36.7 g/dL (31-35); MEAN CORPUSCULAR VOLUME 85.9 fL (81-99); MONOCYTES # (AUTO) 0.5 (0.2-0.8); MONOCYTES % 4.3 % (4.4-11.3); NEUTROPHILS # (AUTO) 8.5 (2.1-6.9); NEUTROPHILS % 78.7 % (38.7-80.0); PLATELET COUNT 280 x10e3/uL (140-360); RED BLOOD COUNT 6.16 x10e6/uL (4.3-5.7); RED CELL DISTRIBUTION WIDTH 11.1 % (11.7-14.4)
--- NOTE | 2018-01-26 19:54 | Diagnostic Imaging Report ---
CHEST SINGLE (PORTABLE), 01/26/2018 7:20 PM Technique: CHEST SINGLE (PORTABLE) Comparison: 11/08/2017 Clinical history: Shortness of breath Findings: Lung apices are partially excluded. Unremarkable appearance of the heart, mediastinum, lungs and pleural spaces. Impression: 1. Lines/Tubes: None 2. No acute abnormality. Signed by: Dr Ellen Haro MD on 01/26/2018 7:51 PM
[2018-01-26 19:55] LABS: BILIRUBIN,URINE NEGATIVE (NEGATIVE); CLARITY,URINE CLEAR (CLEAR); COLOR,URINE YELLOW (YELLOW); KETONES,URINE 3+ (NEGATIVE); LEUKOCYTE ESTERASE ,URINE NEGATIVE (NEGATIVE); NITRITE,URINE NEGATIVE (NEGATIVE); URINE UROBILINOGEN 0.2 mg/dL (0.2 - 1)
[2018-01-26 19:56] LABS: PROTEIN,URINE DIPSTICK 1+ (NEGATIVE)
[2018-01-26 20:04] LABS: BACTERIA,URINE RARE /HPF; EPITHELIAL CELLS,URINE RARE /LPF; RBC,URINE 0-5 /HPF (0-5); WBC,URINE (MAN) 0-5 /HPF (0-5)
[2018-01-26 20:05] LABS: ALANINE AMINOTRANSFERASE 12 IU/L (0-55); ALBUMIN 4.4 g/dL (3.5-5.0); ALKALINE PHOSPHATASE 141 IU/L (40-150); AMYLASE 20 U/L (25-125); ANION GAP 30.2 mmol/L (8-16); BLOOD UREA NITROGEN 16 mg/dL (7-26); BUN/CREATININE RATIO 10 (6-25); CALCIUM 9.9 mg/dL (8.4-10.2); CARBON DIOXIDE 11 mmol/L (22-29); CHLORIDE 90 mmol/L (98-107); CREATINE KINASE 37 IU/L (30-200); CREATININE, SERUM 1.54 mg/dL (0.72-1.25); EST GLOMERULAR FILTRATION RATE > 60 ML/MIN (60-); GLUCOSE 349 mg/dL (74-118); POTASSIUM 4.2 mmol/L (3.5-5.1); SODIUM 127 mmol/L (136-145)
[2018-01-26 20:10] LABS: LIPASE < 4 U/L (8-78)
[2018-01-26] MEDS ORDERED: SODIUM CHLORIDE 0.9% 1000ML 1,000 ML IV SCH (20:22)
[2018-01-26] MEDS ORDERED: DEXTROSE 5%/0.45% SOD CHL 1,000 ML IV SCH (20:22)
[2018-01-26] MEDS ORDERED: INSULIN DETEMIR 100 UNIT/ML PEN SQ PRN (20:30)
[2018-01-26] MEDS ORDERED: MAGNESIUM SULF 1GRAM/DEXTROSE 100 ML IV PRN (20:30)
[2018-01-26] MEDS ORDERED: INSULIN REGULAR, HUMAN 3ML VL 100 UNIT in SODIUM CHLORIDE 0.9% 99 ML IV SCH ×2 (20:30)
[2018-01-26] MEDS ORDERED: SODIUM CHLORIDE FLUSH 10 ML SYR INJ PRN (20:30)
[2018-01-26] MEDS ORDERED: ONDANSETRON HCL INJ 2 MG/ML VIAL IV PRN (20:30)
[2018-01-26] MEDS ORDERED: POTASSIUM CHLORIDE 20MEQ/100ML 200 ML IV PRN (20:30)
[2018-01-26 21:39] VITALS: BP 153/101
[2018-01-26 21:40] VITALS: BP 152/107
[2018-01-26 22:02] VITALS: BP 152/107
[2018-01-26] MEDS: LISINOPRIL 10 MG TAB PO SCH (23:03)
[2018-01-27] VITALS (57 sets, daily range): BP systolic 121–152; BP diastolic 68–107
[2018-01-27 01:28] LABS: ANION GAP 17.1 mmol/L (8-16); BLOOD UREA NITROGEN 15 mg/dL (7-26); BUN/CREATININE RATIO 13 (6-25); CARBON DIOXIDE 19 mmol/L (22-29); CHLORIDE 101 mmol/L (98-107); CREATININE, SERUM 1.19 mg/dL (0.72-1.25); EST GLOMERULAR FILTRATION RATE > 60 ML/MIN (60-); GLUCOSE 85 mg/dL (74-118); MAGNESIUM 1.8 MG/DL (1.3-2.1); SODIUM 134 mmol/L (136-145)
[2018-01-27 01:29] LABS: POTASSIUM 3.1 mmol/L (3.5-5.1)
[2018-01-27 01:43] LABS: BILIRUBIN,URINE NEGATIVE (NEGATIVE); COLOR,URINE YELLOW (YELLOW); KETONES,URINE 3+ (NEGATIVE); LEUKOCYTE ESTERASE ,URINE 1+ (NEGATIVE); NITRITE,URINE NEGATIVE (NEGATIVE); URINE UROBILINOGEN 0.2 mg/dL (0.2 - 1)
[2018-01-27 01:52] LABS: CLARITY,URINE HAZY (CLEAR); PROTEIN,URINE DIPSTICK 1+ (NEGATIVE)
[2018-01-27 02:00] LABS: BACTERIA,URINE MANY /HPF; EPITHELIAL CELLS,URINE FEW /LPF; RBC,URINE >50 /HPF (0-5); TRANSITIONAL EPI CELLS,URINE FEW
[2018-01-27 06:22] LABS: BASOPHILS % 0.3 % (0.0-1.0); EOSINOPHILS % 0.2 % (0.0-6.0); HEMATOCRIT 43.8 % (38.2-49.6); HEMOGLOBIN 16.3 g/dL (14.0-18.0); LYMPHOCYTES # (AUTO) 2.2 (1.0-3.2); MEAN CORPUSCULAR HGB CONC 37.2 g/dL (31-35); MEAN CORPUSCULAR VOLUME 83.4 fL (81-99); MONOCYTES % 9.4 % (4.4-11.3); NEUTROPHILS # (AUTO) 7.6 (2.1-6.9); NEUTROPHILS % 69.7 % (38.7-80.0); PLATELET COUNT 245 x10e3/uL (140-360); RED BLOOD COUNT 5.25 x10e6/uL (4.3-5.7); RED CELL DISTRIBUTION WIDTH 10.7 % (11.7-14.4)
[2018-01-27 06:51] LABS: ALANINE AMINOTRANSFERASE 7 IU/L (0-55); ALBUMIN 3.3 g/dL (3.5-5.0); ALBUMIN/GLOBULIN RATIO 1.1 (0.8-2.0); ALKALINE PHOSPHATASE 104 IU/L (40-150); ANION GAP 12.1 mmol/L (8-16); BLOOD UREA NITROGEN 14 mg/dL (7-26); BUN/CREATININE RATIO 14 (6-25); CALCIUM 8.6 mg/dL (8.4-10.2); CARBON DIOXIDE 21 mmol/L (22-29); CHLORIDE 97 mmol/L (98-107); EST GLOMERULAR FILTRATION RATE > 60 ML/MIN (60-); GLUCOSE 132 mg/dL (74-118); POTASSIUM 3.1 mmol/L (3.5-5.1); SODIUM 127 mmol/L (136-145)
[2018-01-27] MEDS: KCL 20MEQ/.9 SOD CHL 1,000 ML IV SCH ×4 (07:30→23:00)
[2018-01-27 09:27] LABS: ANION GAP 12.9 mmol/L (8-16); BLOOD UREA NITROGEN 14 mg/dL (7-26); BUN/CREATININE RATIO 16 (6-25); CALCIUM 8.6 mg/dL (8.4-10.2); CARBON DIOXIDE 23 mmol/L (22-29); CHLORIDE 98 mmol/L (98-107); CREATININE, SERUM 0.89 mg/dL (0.72-1.25); EST GLOMERULAR FILTRATION RATE > 60 ML/MIN (60-); GLUCOSE 109 mg/dL (74-118); MAGNESIUM 1.7 MG/DL (1.3-2.1); SODIUM 131 mmol/L (136-145)
[2018-01-27 09:30] LABS: POTASSIUM 2.9 mmol/L (3.5-5.1)
[2018-01-27] MEDS ORDERED: POTASSIUM CHLORIDE 20MEQ/100ML 200 ML IV ONE (10:15)
[2018-01-27] MEDS ORDERED: SODIUM CHLORIDE 0.9% 1000ML 1,000 ML IV SCH (10:30)
--- NOTE | 2018-01-27 14:50 | Consultation ---
DATE OF CONSULTATION: January 27, 2018 ENDOCRINE CONSULTATION Thank you very much for referring this patient. This is a patient of Dr. Vasquez. HISTORY OF PRESENT ILLNESS: This is a 22-year-old gentleman who is referred to me for evaluation of uncontrolled diabetes mellitus and recurrent diabetic ketoacidosis. Patient reportedly is a known diabetic for almost 5 years and takes a combination of NPH and regular insulin at home. He takes about 15 units of NPH twice a day and regular insulin depending upon the blood sugars. This is his 3rd episode of diabetic ketoacidosis in the last few months. He came to the hospital with history of nausea and vomiting, abdominal pain. His blood sugar at the time of admission was 364. His anion gap was 30.2. The patient has been on insulin drip and IV fluids. He does not have any other major underlying illnesses. He has history of complications from diabetes including diabetic sensorimotor neuropathy. PHYSICAL EXAMINATION: GENERAL: Today the patient is alert, awake, a little bit apprehensive. VITALS: His heart rate is around 100. Blood pressure 130/80 mmHg. HEENT: Examination essentially unremarkable. Thyroid is palpable. Clinically he is near euthyroid. CHEST: Bilateral vesicular breathing. He has mild bronchospasm. CARDIAC: Both 1st and 2nd heart sounds. There is no 3rd or 4th heart sound. Ejection sound grade 2/6. CLINICAL IMPRESSION: Diabetes mellitus type 1 with recurrent diabetic ketoacidosis. The plan at this time is to continue the insulin drip, taper it off once he starts eating. Monitor his blood sugars closely and correct the electrolytes. Thanks for referring this patient. I will be following this patient with you. Job#: [id number] EV ALEAH
[2018-01-27 14:55] LABS: FREE T4 (FREE THYROXINE) 1.22 ng/dL (0.9-1.8); THYROID STIMULATING HORMONE 0.979 uIU/mL (0.350-4.940)
[2018-01-27] MEDS: INSULIN LISPRO 100 UNIT/1 ML 3ML VIAL SQ SCH ×4 (16:30→21:13)
[2018-01-27] MEDS: SODIUM CHLORIDE 0.9% 1000ML 1,000 ML IV SCH ×2 (16:30→18:10)
[2018-01-27] MEDS: INSULIN DETEMIR 100 UNIT/ML PEN SQ SCH (18:07)
[2018-01-27 18:51] LABS: ANION GAP 16.3 mmol/L (8-16); BLOOD UREA NITROGEN 9 mg/dL (7-26); BUN/CREATININE RATIO 11 (6-25); CALCIUM 8.7 mg/dL (8.4-10.2); CARBON DIOXIDE 25 mmol/L (22-29); CHLORIDE 94 mmol/L (98-107); CREATININE, SERUM 0.85 mg/dL (0.72-1.25); EST GLOMERULAR FILTRATION RATE > 60 ML/MIN (60-); GLUCOSE 200 mg/dL (74-118); MAGNESIUM 1.7 MG/DL (1.3-2.1); POTASSIUM 3.3 mmol/L (3.5-5.1); SODIUM 132 mmol/L (136-145)
[2018-01-28] VITALS (9 sets, daily range): BP systolic 116–137; BP diastolic 70–91
[2018-01-28] MEDS: KCL 20MEQ/.9 SOD CHL 1,000 ML IV SCH ×4 (01:45→17:24)
[2018-01-28 06:11] LABS: BASOPHILS % 0.3 % (0.0-1.0); EOSINOPHILS # (AUTO) 0.1 (0.0-0.4); EOSINOPHILS % 1.1 % (0.0-6.0); HEMATOCRIT 41.2 % (38.2-49.6); HEMOGLOBIN 15.3 g/dL (14.0-18.0); LYMPHOCYTES # (AUTO) 2.1 (1.0-3.2); LYMPHOCYTES % 31.9 % (18.0-39.1); MEAN CORPUSCULAR HEMOGLOBIN 31.5 pg (28-32); MEAN CORPUSCULAR HGB CONC 37.1 g/dL (31-35); MEAN CORPUSCULAR VOLUME 84.8 fL (81-99); MONOCYTES # (AUTO) 0.5 (0.2-0.8); MONOCYTES % 8.1 % (4.4-11.3); NEUTROPHILS # (AUTO) 3.8 (2.1-6.9); NEUTROPHILS % 58.3 % (38.7-80.0); PLATELET COUNT 197 x10e3/uL (140-360); RED BLOOD COUNT 4.86 x10e6/uL (4.3-5.7); RED CELL DISTRIBUTION WIDTH 10.8 % (11.7-14.4)
[2018-01-28 06:37] LABS: ALANINE AMINOTRANSFERASE 8 IU/L (0-55); ALBUMIN 3.2 g/dL (3.5-5.0); ALBUMIN/GLOBULIN RATIO 1.2 (0.8-2.0); ALKALINE PHOSPHATASE 94 IU/L (40-150); ANION GAP 14.1 mmol/L (8-16); BLOOD UREA NITROGEN 8 mg/dL (7-26); BUN/CREATININE RATIO 12 (6-25); CALCIUM 8.2 mg/dL (8.4-10.2); CARBON DIOXIDE 27 mmol/L (22-29); CHLORIDE 96 mmol/L (98-107); CREATININE, SERUM 0.66 mg/dL (0.72-1.25); EST GLOMERULAR FILTRATION RATE > 60 ML/MIN (60-); GLUCOSE 112 mg/dL (74-118); POTASSIUM 3.1 mmol/L (3.5-5.1); SODIUM 134 mmol/L (136-145)
[2018-01-28] MEDS: INSULIN LISPRO 100 UNIT/1 ML 3ML VIAL SQ SCH ×5 (07:30→21:00)
[2018-01-28] MEDS: INSULIN DETEMIR 100 UNIT/ML PEN SQ SCH ×2 (09:01→17:00)
[2018-01-28] MEDS ORDERED: POTASSIUM CHLORIDE 20MEQ/100ML 200 ML IV ONE (10:00)
[2018-01-28] MEDS ORDERED: INSULIN LISPRO 100 UNIT/1 ML 3ML VIAL SQ SCH (12:00)
[2018-01-28] MEDS ORDERED: POTASSIUM CHLORIDE 20MEQ/100ML 200 ML ONE (13:19)
[2018-01-28] MEDS: LISINOPRIL 10 MG TAB PO SCH (21:19)
[2018-01-29] VITALS: BP 133/75
[2018-01-29] MEDS: KCL 20MEQ/.9 SOD CHL 1,000 ML IV SCH ×3 (00:04→13:53)
[2018-01-29 04:00] VITALS: BP 143/86
[2018-01-29 07:02] LABS: ANION GAP 11.2 mmol/L (8-16); BLOOD UREA NITROGEN 7 mg/dL (7-26); BUN/CREATININE RATIO 12 (6-25); CALCIUM 8.4 mg/dL (8.4-10.2); CARBON DIOXIDE 28 mmol/L (22-29); CHLORIDE 99 mmol/L (98-107); CREATININE, SERUM 0.58 mg/dL (0.72-1.25); EST GLOMERULAR FILTRATION RATE > 60 ML/MIN (60-); GLUCOSE 184 mg/dL (74-118); POTASSIUM 3.2 mmol/L (3.5-5.1); SODIUM 135 mmol/L (136-145)
[2018-01-29 07:36] VITALS: BP 137/86
[2018-01-29] MEDS: INSULIN LISPRO 100 UNIT/1 ML 3ML VIAL SQ SCH ×4 (08:00→12:30)
[2018-01-29] MEDS: INSULIN DETEMIR 100 UNIT/ML PEN SQ SCH (08:49)
[2018-01-29] MEDS ORDERED: POTASSIUM CHLORIDE 20 MEQ TAB CR PO STA (15:21)
[2018-01-29] MEDS ORDERED: LEVEMIR100 UNIT/1 (15:26)
== END 2018-01-29 15:45 | disposition home or self-care (01) | DRG 639 ==
LOC: ER 19:17 → ERHOLD 20:28 → ICU 21:12 → MED/SURG2 01-28 14:50
DX: E10.10 Type 1 diabetes mellitus with ketoacidosis without coma (principal); E86.0 Dehydration; J98.01 Acute bronchospasm; E87.6 Hypokalemia; Z79.4 Long term (current) use of insulin; K29.00 Acute gastritis without bleeding
CPT/HCPCS: 36415; 71045; 80048; 80053; 81001; 82150; 82550; 82553; 82948; 83036; 83690; 83735; 84439; 84443; 84484; 85025; 93005; 96360; 96372; 96374; 99284; J2405; J3480; J7030; J7050

== ENCOUNTER 2018-03-08 19:46 | Emergency (ER) | payer BC ==
[~2018-03-08] VITALS: Ht 180.3 cm; Wt 68.0 kg
[~2018-03-08 19:46] MED LIST changes: +LEVEMIR100 UNIT/1
--- OUTSIDE RECORDS SUMMARY | 2018-03-08 19:49 | XMS REPORT | Continuity of Care Document ---
Author Author [facility] Organization [facility] Address [address] [place] [address] Phone Unavailable Care Team Providers [employer] Tutor Name Role Phone NO, PCP PCP Unavailable Insurance Providers Guarantor Juanito Lomeli Address [address] [place] [address] Email [email or web address] Payer [facility] Policy Number [id number] Subscriber's Name Shawna Lomeli Relationship 32 Mother Group Number [id number] Group Name [employer] 80/20 FT EMPLOYEES ([employer]) Effective Date 11/11/17 Advance Directives Directive Response Recorded Date/Time Does the patient have an advance directive? No 01/26/18 10:10pm If yes, is advance directive on file with [facility]? No 01/26/18 10:10pm If not on file with [facility] will patient provide a copy? No 01/26/18 10:10pm Do you have a Directive to Physician? No 01/26/18 7:14pm Do you have a Medical Power of Manufacturing Management Associate? No 01/26/18 7:14pm Do you have an out of hospital Do Not Resuscitate Order? No 01/26/18 7:14pm Do you have any special needs we should be aware of? No 01/26/18 7:14pm Do you have a support person here with you today? Yes 01/26/18 7:14pm Did patient receive Notice of Privacy Practices? Yes 01/26/18 7:14pm Did patient receive patient rights and responsibilities? Yes 01/26/18 7:14pm Problems Medical Problem Onset Date Status DKA (diabetic ketoacidoses) 12/28/2015 Acute Dehydration Unknown Diabetic keto-acidosis 07/20/2015 Acute Non compliance w medication regimen Unknown Vomiting Unknown Medications Current Home Medications Medication Dose Units Route Directions Days Qty Instructions Start Date Insulin Detemir (Levemir) 100 Unit/1 Ml Vial Insulin Human Nph (Humulin N) 100 Units/Ml Ml 15 Unit Sub-Q Every 12 Hours 90 Days 11/13/17 Insulin Regular, Human (Humulin R) 100 Unit/1 Ml Vial 0 Unit Sub-Q Before Meals And At Bedtime 90 Days BS 121-150 -> 2 UNITS BS 151-200 -> 4 UNITS BS 201-250 -> 6 UNITS BS 251-300 -> 8 UNITS BS 301-350 -> 10 UNITS BS 351-399 - > 12 UNITS BS >400 -> 14 UNITS 11/13/17 Metoclopramide Hcl 10 Mg Tablet 10 Mg Oral Three Times Daily With Meals as needed for Nausea And Vomiting 7 Days 11/13/17 Past Home Medications Medication Directions Ordered Status Insulin Aspart (Novolog) 100 Unit/1 Ml Cartridge, 10 Units Subcutaneously Before Meals Discontinued Insulin Detemir 100 Unit/Ml Pen, 10 Unit Sub-Q Every Morning 01/02/16 Discontinued Insulin Detemir 100 Unit/Ml Pen, 14 Unit Sub-Q Bedtime 01/05/17 Discontinued Insulin Detemir 100 Unit/Ml Pen, 10 Unit Sub-Q Every Morning 01/05/17 Discontinued Insulin Detemir 100 Unit/Ml Pen, 16 Unit Sub-Q Bedtime 01/02/16 Discontinued Insulin Detemir (Levemir) 100 Unit/1 Ml Vial, 10 Units Subcutaneously Every Morning 01/01/16 Discontinued Insulin Detemir (Levemir) 100 Unit/1 Ml Vial, 16 Units Subcutaneously Bedtime 01/01/16 Discontinued Insulin Detemir (Levemir) 100 Unit/1 Ml Vial, 10 Units Subcutaneously Every Morning Discontinued Insulin Detemir (Levemir) 100 Unit/1 Ml Vial, 16 Units Subcutaneously Bedtime Discontinued Insulin Human Lispro (Humalog) 100 Units/Ml Ml, 0 Unit Sub-Q Before Meals And At Bedtime 01/05/17 Discontinued Insulin Regular, Human (Novolin R) 100 Unit/1 Ml Vial, Discontinued Potassium Chloride (Klor-Con M20) 20 Meq Tabcr, 20 Meq Oral Use As Directed 01/05/17 Discontinued Social History Social History Problem Response Recorded Date/Time Onset Date Status Hx Psychiatric Problems No 01/26/2018 10:10pm Not Applicable Not Applicable Hx Eating Disorder No 01/26/2018 10:10pm Not Applicable Not Applicable Hx Substance Use Disorder No 01/26/2018 10:10pm Not Applicable Not Applicable Hx Depression No 01/26/2018 10:10pm Not Applicable Not Applicable Hx Alcohol Use No 01/26/2018 10:10pm Not Applicable Not Applicable Hx Substance Use Treatment No 01/26/2018 10:10pm Not Applicable Not Applicable Hx Physical Abuse No 01/26/2018 10:10pm Not Applicable Not Applicable Smoking Status Start Date Stop Date Never Smoker Hospital Discharge Instructions No hospital discharge instruction information available. Plan of Care Discharge Date 01/29/18 3:45pm Disposition HOME, SELF-CARE Instructions/Education Provided Dehydration - Adult Diabetes and Diet Prescriptions See Medication Section Additional Instructions/Education CONTINUE DIET AND ACTIVITY TOLERATED FOLLOW UP WITH PRIMARY CARE IN 1-2 WEEKS MENDOZA MONROE Functional Status Query Response Date Recorded Assistive Devices None January 26, 2018 10:02pm Ambulation Ability Independent January 26, 2018 10:02pm Toileting Ability Independent January 28, 2018 7:00am Allergies, Adverse Reactions, Alerts No known allergies. Immunizations No immunization information available. Vital Signs Acute Vital Signs Vital Response Date/Time Temperature (Fahrenheit) 99.0 degrees F (97.6 - 99.5) 01/29/2018 7:36am Pulse Pulse Rate (adult) 93 bpm (60 - 90) 01/29/2018 7:36am Respiratory Rate 20 bpm (12 - 24) 01/29/2018 7:36am Blood Pressure 137/86 mm Hg 01/29/2018 7:36am Height 5 ft 11 in 01/26/2018 7:25pm Weight 150.19 lb 01/28/2018 7:59am Body Mass Index 20.9 kg/m^2 01/28/2018 7:59am Results Laboratory Results Test Name Result Units Flags Reference Collection Date/Time Result Date/ Time Comments Platelet Estimate ADEQUATE 11/11/2017 6:15am 11/11/2017 10:18am Platelet Morphology Comment NORMAL 11/11/2017 6:15am 11/11/2017 10: 18am Anisocytosis SLIGHT 11/11/2017 6:15am 11/11/2017 10:18am Microcytosis X 11/11/2017 6:15am 11/11/2017 10:18am Red Cell Morphology Comment NORMAL 11/11/2017 6:15am 11/11/2017 10: 18am Arterial Blood pH 7.01 *L 7.31-7.41 11/08/2017 10:15pm 11/08/2017 10: 27pm Results called to MD JACOB at 2221 on 11/08/17 by Huan Champion. RB OK. Arterial Blood Partial Pressure CO2 11 mmHg L 41-51 11/08/2017 10:15pm 11/08/2017 10:27pm Arterial Blood Partial Pressure O2 138 mmHg H 80-105 11/08/2017 10:15pm 11/08/2017 10:27pm Arterial Blood HCO3 3 mmol/L L 23-28 11/08/2017 10:15pm 11/08/2017 10: 27pm Arterial Blood Base Excess -28.0 mmol/L L -2 - 3 11/08/2017 10:15pm 10:27pm Arterial Blood Oxygen Saturation 97.0 % 95-98 11/08/2017 10:15pm 2016 10:27pm White Blood Count 6.43 x10e3/uL 4.8-10.8 01/28/2018 5:25am 01/28/2018 6 :18am Red Blood Count 4.86 x10e6/uL 4.3-5.7 01/28/2018 5:25am 01/28/2018 6: 18am Hemoglobin 15.3 g/dL 14.0-18.0 01/28/2018 5:25am 01/28/2018 6:18am Hematocrit 41.2 % 38.2-49.6 01/28/2018 5:25am 01/28/2018 6:18am Mean Corpuscular Volume 84.8 fL 81-99 01/28/2018 5:25am 01/28/2018 6: 18am Mean Corpuscular Hemoglobin 31.5 pg 28-32 01/28/2018 5:01/28/2018 6:18am Mean Corpuscular Hemoglobin Concent 37.1 g/dL H 31-35 01/28/2018 5:01/28/2018 6:18am Red Cell Distribution Width 10.8 % L 11.7-14.4 01/28/2018 5:2017 6:18am Platelet Count 197 x10e3/uL 140-360 01/28/2018 5:01/28/2018 6: 18am Neutrophils (%) (Auto) 58.3 % 38.7-80.0 01/28/2018 5:01/28/2018 6: 18am Lymphocytes (%) (Auto) 31.9 % 18.0-39.1 01/28/2018 5:01/28/2018 6: 18am Monocytes (%) (Auto) 8.1 % 4.4-11.3 01/28/2018 5:01/28/2018 6: 18am Eosinophils (%) (Auto) 1.1 % 0.0-6.0 01/28/2018 5:01/28/2018 6: 18am Basophils (%) (Auto) 0.3 % 0.0-1.0 01/28/2018 5:01/28/2018 6:18am IM GRANULOCYTES % 0.3 % 0.0-1.0 01/28/2018 5:01/28/2018 6:18am Neutrophils # (Auto) 3.8 2.1-6.9 01/28/2018 5:01/28/2018 6:18am Lymphocytes # (Auto) 2.1 1.0-3.2 01/28/2018 5:01/28/2018 6:18am Monocytes # (Auto) 0.5 0.2-0.8 01/28/2018 5:01/28/2018 6:18am Eosinophils # (Auto) 0.1 0.0-0.4 01/28/2018 5:01/28/2018 6:18am Basophils # (Auto) 0.0 0.0-0.1 01/28/2018 5:01/28/2018 6:18am Absolute Immature Granulocyte (auto 0.02 x10e3/uL 0-0.1 01/28/2018 5: 25am 01/28/2018 6:18am Urine Color YELLOW YELLOW 01/27/2018 1:40am 01/27/2018 1:52am Urine Clarity HAZY CLEAR 01/27/2018 1:40am 01/27/2018 1:52am Urine Specific Dwight 1.020 1.010-1.025 01/27/2018 1:40am 2017 1:52am Urine pH 6 5 - 7 01/27/2018 1:40am 01/27/2018 1:52am Urine Leukocyte Esterase 1+ H NEGATIVE 01/27/2018 1:40am 01/27/2018 1: 52am Urine Nitrite NEGATIVE NEGATIVE 01/27/2018 1:40am 01/27/2018 1:52am Urine Protein 1+ H NEGATIVE 01/27/2018 1:40am 01/27/2018 1:52am Urine Glucose (UA) 3+ H NEGATIVE 01/27/2018 1:40am 01/27/2018 1:52am Urine Ketones 3+ H NEGATIVE 01/27/2018 1:40am 01/27/2018 1:52am Urine Urobilinogen 0.2 mg/dL 0.2 - 1 01/27/2018 1:40am 01/27/2018 1: 52am Urine Bilirubin NEGATIVE NEGATIVE 01/27/2018 1:40am 01/27/2018 1: 52am Urine Blood 3+ H NEGATIVE 01/27/2018 1:40am 01/27/2018 1:52am Urine WBC 11-20 /HPF H 0-5 01/27/2018 1:40am 01/27/2018 2:00am Urine RBC >50 /HPF H 0-5 01/27/2018 1:40am 01/27/2018 2:00am Urine Bacteria MANY /HPF H NONE 01/27/2018 1:40am 01/27/2018 2:00am Urine Epithelial Cells FEW /LPF NONE 01/27/2018 1:40am 01/27/2018 2: 00am Urine Transitional Epithelial Cells FEW NONE 01/27/2018 1:40am 2017 2:00am Sodium Level 135 mmol/L L 136-145 01/29/2018 6:00am 01/29/2018 7:03am Potassium Level 3.2 mmol/L L 3.5-5.1 01/29/2018 6:00am 01/29/2018 7: 03am Chloride Level 99 mmol/L 98-107 01/29/2018 6:00am 01/29/2018 7:03am Carbon Dioxide Level 28 mmol/L -01/29/2018 6:00am 01/29/2018 7: 03am Anion Gap 11.2 mmol/L 8-16 01/29/2018 6:00am 01/29/2018 7:03am Blood Urea Nitrogen 7 mg/dL 701/29/2018 6:00am 01/29/2018 7:03am Creatinine 0.58 mg/dL L 0.72-1.25 01/29/2018 6:00am 01/29/2018 7:03am BUN/Creatinine Ratio 12 601/29/2018 6:00am 01/29/2018 7:03am Estimat Glomerular Filtration Rate > 60 ML/MIN 60- 01/29/2018 6:00am 7:03am Ranges were taken from the National Kidney Disease Education Program and the National Kidney Foundation literature. Reference ranges: 60 or greater: Normal 16-59 (for 3 consecutive months): Chronic kidney disease 15 or less: Kidney failure Glucose Level 184 mg/dL H 74-118 01/29/2018 6:00am 01/29/2018 7:03am Calcium Level 8.4 mg/dL 8.4-10.2 01/29/2018 6:00am 01/29/2018 7:03am Bedside Glucose 108 mg/dL 70-120 01/29/2018 11:00am 01/29/2018 11:49am Meter ID: [id number] Hemoglobin A1c Percent 10.7 % H 4.0-7.0 01/27/2018 5:10am 01/27/2018 2: 33pm Magnesium Level 1.7 MG/DL 1.3-2.1 01/27/2018 6:25pm 01/27/2018 6:54pm Total Bilirubin 1.8 mg/dL H 0.2-1.2 01/28/2018 5:25am 01/28/2018 6:52am Aspartate Amino Transf (AST/SGOT) 12 IU/L 5-34 01/28/2018 5:25am 2017 6:52am Alanine Aminotransferase (ALT/SGPT) 8 IU/L 0-55 01/28/2018 5:25am 01/28 6:52am Total Protein 5.9 g/dL L 6.5-8.1 01/28/2018 5:25am 01/28/2018 6:52am Albumin 3.2 g/dL L 3.5-5.0 01/28/2018 5:25am 01/28/2018 6:52am Globulin 2.7 g/dL 2.3-3.5 01/28/2018 5:25am 01/28/2018 6:52am Albumin/Globulin Ratio 1.2 0.8-2.0 01/28/2018 5:25am 01/28/2018 6: 52am Alkaline Phosphatase 94 IU/L 40-150 01/28/2018 5:25am 01/28/2018 6: 52am Creatine Kinase 37 IU/L 30-200 01/26/2018 7:30pm 01/26/2018 8:11pm Creatine Kinase MB 0.60 ng/mL 0-5.0 01/26/2018 7:30pm 01/26/2018 8: 15pm Troponin I 0.009 ng/mL 0-0.300 01/26/2018 7:30pm 01/26/2018 8:15pm Amylase Level 20 U/L L 25-125 01/26/2018 7:30pm 01/26/2018 8:11pm Lipase < 4 U/L L 8-78 01/26/2018 7:30pm 01/26/2018 8:11pm Free Thyroxine 1.22 ng/dL 0.9-1.8 01/27/2018 5:10am 01/27/2018 2:55pm Thyroid Stimulating Hormone (TSH) 0.979 uIU/mL 0.350-4.940 01/27/2018 5: 10am 01/27/2018 2:55pm Microbiology Results Procedure Source Organism/Result Collection Date/Time Result Date/Time Result Status Blood Culture Blood NO GROWTH AFTER 5 DAYS, FINAL REPORT 11/08/2017 10: 10pm 11/13/2017 10:19pm Final Procedures Procedure Status Date Provider(s) US abdomen complete Active 11/10/17 YORDY PAGE CLIENT RELATION SPECIALIST Encounters Encounter Location Arrival/Admit Date Discharge/Depart Date Attending Provider Discharged [facility]patient [facility] 01/26/18 8:28pm 01/29/18 3:45pm NIKITA MCFARLAND MD Discharged [facility]patient [facility] 11/08/17 11:30pm 10:52am ANA CAMEJO MD
[2018-03-08] MEDS ORDERED: ONDANSETRON HCL INJ 2 MG/ML VIAL IV STA (19:57)
[2018-03-08] MEDS ORDERED: INSULIN REGULAR, HUMAN 3ML VL 100 UNIT in SODIUM CHLORIDE 0.9% 100 ML 99 ML IV SCH ×2 (20:00)
[2018-03-08] MEDS ORDERED: INSULIN REGULAR, HUMAN 100 UNIT/1 ML 3ML VIAL IV ONE ×2 (20:00→23:00)
[2018-03-09 00:25] VITALS: BP 144/98
== END 2018-03-09 00:27 | disposition short-term general hospital (02) ==
LOC: FSED 19:46
DX: E10.10 Type 1 diabetes mellitus with ketoacidosis without coma (principal); R11.2 Nausea with vomiting, unspecified; F17.210 Nicotine dependence, cigarettes, uncomplicated
CPT/HCPCS: 80048; 81003; 82948; 83605; 85025; 99284; J2405

== ENCOUNTER 2018-04-23 20:40 | Emergency (ER) | payer BC ==
[~2018-04-23] VITALS: Ht 180.3 cm; Wt 68.0 kg
[2018-04-23] MEDS ORDERED: ONDANSETRON HCL INJ 2 MG/ML VIAL IV STA (21:10)
[2018-04-23] MEDS ORDERED: SODIUM CHLORIDE 0.9% 1000ML 1,000 ML IV ONE (21:15)
== END 2018-04-23 22:07 | disposition home or self-care (01) ==
LOC: FSED 20:40
DX: R11.2 Nausea with vomiting, unspecified (principal); E86.0 Dehydration; E10.9 Type 1 diabetes mellitus without complications; Z79.4 Long term (current) use of insulin
CPT/HCPCS: 80053; 81003; 85025; 99283; J2405; J7030

== ENCOUNTER 2018-05-16 11:53 | Inpatient (IN) | payer BC ==
[2018-05-16] VITALS (11 sets, daily range): BP systolic 119–158; BP diastolic 68–104
[~2018-05-16] VITALS: Ht 177.8 cm; Wt 64.9 kg
[2018-05-16] MEDS ORDERED: SODIUM CHLORIDE 0.9% 1000ML 1,000 ML ONE ×3 (12:15→13:30)
[2018-05-16] MEDS ORDERED: INSULIN REGULAR, HUMAN 100 UNIT/1 ML 3ML VIAL IV ONE (12:15)
[2018-05-16] MEDS ORDERED: POTASSIUM CHLORIDE 20 MEQ TAB CR PO ONE (12:30)
[2018-05-16] MEDS ORDERED: SODIUM CHLORIDE 0.9% 1000ML 1,000 ML IV SCH (13:25)
[2018-05-16] MEDS: DEXTROSE 5%/0.45% SOD CHL 1,000 ML IV SCH (13:37)
[2018-05-16] MEDS ORDERED: ZOFRAN ODT4 MG SL (13:42)
[2018-05-16] MEDS ORDERED: LANTUS 3ML100 UNITS/ SC (13:42)
[2018-05-16] MEDS ORDERED: HUMALOG100 UNIT/1 (13:42)
[2018-05-16] MEDS ORDERED: MAGNESIUM SULF 1GRAM/DEXTROSE 100 ML IV PRN (13:45)
[2018-05-16] MEDS ORDERED: INSULIN DETEMIR 100 UNIT/ML PEN SQ PRN ×2 (13:45→17:30)
[2018-05-16] MEDS ORDERED: INSULIN REGULAR, HUMAN 3ML VL 100 UNIT in SODIUM CHLORIDE 0.9% 99 ML IV SCH ×2 (13:45)
[2018-05-16] MEDS: SODIUM CHLORIDE 0.9% 1000ML 1,000 ML IV SCH ×3 (14:35→22:17)
[2018-05-16] MEDS ORDERED: ACETAMINOPHEN 325 MG TAB PO PRN (16:15)
[2018-05-16] MEDS ORDERED: ONDANSETRON HCL INJ 2 MG/ML VIAL IV PRN (16:15)
[2018-05-16] MEDS: FAMOTIDINE 20 MG TAB PO SCH (16:30)
[2018-05-16 18:07] LABS: ANION GAP 21.7 mmol/L (8-16); BLOOD UREA NITROGEN 9 mg/dL (7-26); BUN/CREATININE RATIO 7 (6-25); CARBON DIOXIDE 10 mmol/L (22-29); CHLORIDE 102 mmol/L (98-107); CREATININE, SERUM 1.24 mg/dL (0.72-1.25); EST GLOMERULAR FILTRATION RATE > 60 ML/MIN (60-); GLUCOSE 283 mg/dL (74-118); MAGNESIUM 1.6 MG/DL (1.3-2.1); POTASSIUM 4.7 mmol/L (3.5-5.1); SODIUM 129 mmol/L (136-145)
[2018-05-17] VITALS (19 sets, daily range): BP systolic 110–156; BP diastolic 67–101
[2018-05-17 01:17] LABS: ANION GAP 17.1 mmol/L (8-16); BLOOD UREA NITROGEN 7 mg/dL (7-26); BUN/CREATININE RATIO 6 (6-25); CALCIUM 9.8 mg/dL (8.4-10.2); CARBON DIOXIDE 18 mmol/L (22-29); CHLORIDE 102 mmol/L (98-107); CREATININE, SERUM 1.15 mg/dL (0.72-1.25); EST GLOMERULAR FILTRATION RATE > 60 ML/MIN (60-); GLUCOSE 103 mg/dL (74-118); MAGNESIUM 2.3 MG/DL (1.3-2.1); POTASSIUM 4.1 mmol/L (3.5-5.1); SODIUM 133 mmol/L (136-145)
[2018-05-17] MEDS: DEXTROSE 5%/0.45% SOD CHL 1,000 ML IV SCH ×3 (01:30→21:00)
[2018-05-17 04:36] LABS: ANION GAP 18.8 mmol/L (8-16); BLOOD UREA NITROGEN 7 mg/dL (7-26); BUN/CREATININE RATIO 8 (6-25); CALCIUM 8.6 mg/dL (8.4-10.2); CARBON DIOXIDE 15 mmol/L (22-29); CHLORIDE 101 mmol/L (98-107); EST GLOMERULAR FILTRATION RATE > 60 ML/MIN (60-); GLUCOSE 218 mg/dL (74-118); MAGNESIUM 1.9 MG/DL (1.3-2.1); POTASSIUM 3.8 mmol/L (3.5-5.1); SODIUM 131 mmol/L (136-145)
[2018-05-17 04:36] LABS: BASOPHILS % 0.2 % (0.0-1.0); EOSINOPHILS % 0.2 % (0.0-6.0); HEMATOCRIT 40.8 % (38.2-49.6); HEMOGLOBIN 15.9 g/dL (14.0-18.0); LYMPHOCYTES # (AUTO) 1.5 (1.0-3.2); LYMPHOCYTES % 12.7 % (18.0-39.1); MEAN CORPUSCULAR HEMOGLOBIN 31.6 pg (28-32); MEAN CORPUSCULAR VOLUME 81.1 fL (81-99); MONOCYTES # (AUTO) 0.6 (0.2-0.8); MONOCYTES % 5.4 % (4.4-11.3); NEUTROPHILS # (AUTO) 9.3 (2.1-6.9); PLATELET COUNT 250 x10e3/uL (140-360); RED BLOOD COUNT 5.03 x10e6/uL (4.3-5.7); RED CELL DISTRIBUTION WIDTH 11.8 % (11.7-14.4)
[2018-05-17] MEDS: SODIUM CHLORIDE 0.9% 1000ML 1,000 ML IV SCH (07:28)
[2018-05-17 08:15] LABS: ANION GAP 18.6 mmol/L (8-16); BLOOD UREA NITROGEN 7 mg/dL (7-26); BUN/CREATININE RATIO 7 (6-25); CALCIUM 8.5 mg/dL (8.4-10.2); CARBON DIOXIDE 17 mmol/L (22-29); CHLORIDE 97 mmol/L (98-107); CREATININE, SERUM 0.96 mg/dL (0.72-1.25); EST GLOMERULAR FILTRATION RATE > 60 ML/MIN (60-); GLUCOSE 297 mg/dL (74-118); MAGNESIUM 1.6 MG/DL (1.3-2.1); POTASSIUM 3.6 mmol/L (3.5-5.1); SODIUM 129 mmol/L (136-145)
[2018-05-17] MEDS: FAMOTIDINE 20 MG TAB PO SCH ×2 (08:33→16:30)
[2018-05-17] MEDS ORDERED: DEXTROSE 5%/0.9% SOD CHL 1,000 ML IV ONE ×2 (10:30→19:40)
--- NOTE | 2018-05-17 11:12 | History and Physical ---
Patient is a patient of the [facility]. CHIEF COMPLAINT: Recalcitrant nausea, vomiting and elevated blood sugar. HISTORY OF PRESENT ILLNESS: Mr. Lomeli is a 23-year-old gentleman with type 1 diabetes since age 17, 3 previous episodes of DKA presents with recalcitrant nausea and vomiting for 2 days after eating at [employer]. In any case, the patient stopped taking his insulin because he could not eat. He was having nausea and vomiting. Presents now with recalcitrant nausea, vomiting, epigastric and generalized abdominal pain. Blood sugar in the 400s and in DKA. REVIEW OF SYSTEMS: He denies fever, chills or weight loss. He denies sinus congestion or sore throat. He denies chest pain or palpitations. He denies shortness of breath, wheezing or cough. He has abdominal pain, nausea and vomiting. No diarrhea. No melena. He denies dysuria or flank pain. He denies rash or pruritus. He denies joint pain or swelling. He denies bleeding or bruising. He denies headache, vertigo or loss of consciousness. He denies depression, agitation, homicide, or suicidal ideation. PAST MEDICAL HISTORY: Significant for type 1 diabetes since age 17. Currently, using 12 units of Lantus q.12 h. He has had no previous surgery. He does not smoke. ALLERGIES: HE HAS NO KNOWN DRUG ALLERGIES. FAMILY HISTORY: Unremarkable. SOCIAL HISTORY: The patient is . B[place]an is his primary language. He does not smoke, drink or use illegal drugs. He is generally independently functioning. PHYSICAL EXAMINATION PSYCHIATRIC: He is alert and oriented times 3 with normal mood and affect. CONSTITUTIONAL: He has a normal body habitus. Is in no acute distress. VITAL SIGNS: Blood pressure 132/77, pulse 90 and regular, respiratory rate 16, O2 sat 100% on room air, temperature 98.9. HEENT: His head is atraumatic. His eyes are anicteric with clear conjunctivae. Ears and nares are without erythema or discharge. Oropharynx is clear. NECK: Supple with no mass or thyromegaly. LYMPHATIC SYSTEM: He has no palpable cervical, axillary or inguinal adenopathy. CARDIOVASCULAR: His heart has a regular rate and rhythm without murmur or extra heart sounds. He has no carotid bruit. He has no peripheral edema. He has palpable dorsal pedal pulse. RESPIRATORY: Lungs are clear to auscultation and percussion with normal respiratory effort. GASTROINTESTINAL: His abdomen is soft. He has some generalized tenderness without rebound or guarding. He has no hepatosplenomegaly or masses palpable. Normal bowel sounds are present. CUTANEOUS: His skin is warm and dry to touch with no rash or skin breakdown. MUSCULOSKELETAL: His joints are in normal alignment without erythema or swelling. He has no calf tenderness. NEUROLOGIC: Nonfocal with intact cranial nerves and no motor or sensory deficits. DIAGNOSTIC STUDIES: CBC shows a white count of 11.4 with 81% neutrophils, hemoglobin 15.9, hematocrit 40.8, and platelet count 250,000. His chemistry initially sodium 129, potassium 4.7, chloride 102, CO2 10, glucose 283, creatinine 1.24, BUN 9. Calcium 9. This is after receiving 2 L of normal saline at an outside ER. Chemistry this morning shows sodium 129, potassium 3.6, chloride 97, CO2 17, anion gap is still 18.6. It was 21.7. GFR greater than 60. Calcium is 9 initially. Again, today's chemistry with CO2 17, creatinine 0.96, BUN 7 for a normal GFR. Anion gap is 18.6 still. Calcium is 8.5. Magnesium 1.6. IMPRESSION AND PLAN 1. Diabetic ketoacidosis: The patient is admitted to the intensive care unit on a diabetic ketoacidosis protocol that is modified for type 1 diabetes by decreasing the insulin doses in half. The patient is tolerating clear liquids with no nausea or vomiting. Will advance to a regular diabetic diet. 2. Type 1 diabetes with diabetic ketoacidosis Again, the patient is admitted to the intensive care unit on the diabetic ketoacidosis protocol. Will eventually switch back to his regular Lantus and sliding scale insulin doses once the diabetic ketoacidosis has resolved. Will check a hemoglobin A1c to assess his diabetes management. 3. Gastroenteritis: Patient was given Zofran with good relief. Will now advance his diet as tolerated. 4. For prophylaxis, the patient will be using sequential compression devices for deep venous thrombosis prophylaxis and Pepcid for gastrointestinal prophylaxis. Job#: [id number] DE
[2018-05-17 12:31] LABS: ANION GAP 13.1 mmol/L (8-16); BLOOD UREA NITROGEN 5 mg/dL (7-26); BUN/CREATININE RATIO 5 (6-25); CALCIUM 8.7 mg/dL (8.4-10.2); CARBON DIOXIDE 24 mmol/L (22-29); CHLORIDE 97 mmol/L (98-107); CREATININE, SERUM 0.93 mg/dL (0.72-1.25); EST GLOMERULAR FILTRATION RATE > 60 ML/MIN (60-); GLUCOSE 182 mg/dL (74-118); MAGNESIUM 1.8 MG/DL (1.3-2.1); POTASSIUM 3.1 mmol/L (3.5-5.1); SODIUM 131 mmol/L (136-145)
[2018-05-17] MEDS ORDERED: POTASSIUM CHLORIDE 20MEQ/100ML 200 ML ONE ×2 (14:38→21:23)
[2018-05-17] MEDS: POTASSIUM CHLORIDE 20MEQ/100ML 200 ML IV PRN ×2 (14:42→22:36)
[2018-05-17 16:14] LABS: ANION GAP 12.9 mmol/L (8-16); BLOOD UREA NITROGEN 6 mg/dL (7-26); BUN/CREATININE RATIO 7 (6-25); CALCIUM 8.7 mg/dL (8.4-10.2); CARBON DIOXIDE 24 mmol/L (22-29); CHLORIDE 101 mmol/L (98-107); CREATININE, SERUM 0.84 mg/dL (0.72-1.25); EST GLOMERULAR FILTRATION RATE > 60 ML/MIN (60-); GLUCOSE 102 mg/dL (74-118); MAGNESIUM 1.8 MG/DL (1.3-2.1); SODIUM 135 mmol/L (136-145)
[2018-05-17 16:27] LABS: POTASSIUM 2.9 mmol/L (3.5-5.1)
[2018-05-17] MEDS ORDERED: INSULIN REGULAR, HUMAN 3ML VL 100 UNIT in SODIUM CHLORIDE 0.9% 100 ML IV SCH ×2 (18:30)
[2018-05-17 20:03] LABS: ANION GAP 11.9 mmol/L (8-16); BLOOD UREA NITROGEN 6 mg/dL (7-26); BUN/CREATININE RATIO 8 (6-25); CALCIUM 8.5 mg/dL (8.4-10.2); CARBON DIOXIDE 27 mmol/L (22-29); CHLORIDE 98 mmol/L (98-107); CREATININE, SERUM 0.79 mg/dL (0.72-1.25); EST GLOMERULAR FILTRATION RATE > 60 ML/MIN (60-); MAGNESIUM 1.7 MG/DL (1.3-2.1); SODIUM 134 mmol/L (136-145)
[2018-05-17 20:08] LABS: GLUCOSE 59 mg/dL (74-118); POTASSIUM 2.9 mmol/L (3.5-5.1)
[2018-05-17] MEDS ORDERED: DEXTROSE 5%/0.45% SOD CHL 1,000 ML IV ONE (20:08)
[2018-05-17] MEDS ORDERED: DEXTROSE 50% SYRINGE 50 ML IV ONE (20:10)
[2018-05-17] MEDS ORDERED: MAGNESIUM SULF 1GRAM/DEXTROSE 100 ML IV ONE (21:24)
[2018-05-17] MEDS ORDERED: SODIUM CHLORIDE 0.9% 500ML 500 ML ONE ×2 (21:26→21:30)
[2018-05-17 21:55] LABS: ANION GAP 15.1 mmol/L (8-16); BLOOD UREA NITROGEN 7 mg/dL (7-26); BUN/CREATININE RATIO 9 (6-25); CALCIUM 8.3 mg/dL (8.4-10.2); CARBON DIOXIDE 22 mmol/L (22-29); CHLORIDE 97 mmol/L (98-107); CREATININE, SERUM 0.77 mg/dL (0.72-1.25); EST GLOMERULAR FILTRATION RATE > 60 ML/MIN (60-); GLUCOSE 157 mg/dL (74-118); POTASSIUM 3.1 mmol/L (3.5-5.1); SODIUM 131 mmol/L (136-145)
[2018-05-18] VITALS (16 sets, daily range): BP systolic 110–150; BP diastolic 62–99
[2018-05-18] MEDS ORDERED: INSULIN DETEMIR 100 UNIT/ML PEN SQ ONE (02:23)
[2018-05-18] MEDS ORDERED: SODIUM CHLORIDE 0.9% 1000ML 1,000 ML ONE (02:24)
[2018-05-18] MEDS: SODIUM CHLORIDE 0.9% 1000ML 1,000 ML IV SCH ×3 (02:35→17:25)
[2018-05-18 04:53] LABS: BASOPHILS % 0.2 % (0.0-1.0); EOSINOPHILS # (AUTO) 0.1 (0.0-0.4); EOSINOPHILS % 0.7 % (0.0-6.0); HEMATOCRIT 36.2 % (38.2-49.6); LYMPHOCYTES # (AUTO) 2.3 (1.0-3.2); MEAN CORPUSCULAR HEMOGLOBIN 31.3 pg (28-32); MEAN CORPUSCULAR HGB CONC 38.7 g/dL (31-35); MONOCYTES # (AUTO) 0.5 (0.2-0.8); MONOCYTES % 6.2 % (4.4-11.3); NEUTROPHILS # (AUTO) 5.2 (2.1-6.9); NEUTROPHILS % 64.5 % (38.7-80.0); PLATELET COUNT 215 x10e3/uL (140-360); RED BLOOD COUNT 4.47 x10e6/uL (4.3-5.7); RED CELL DISTRIBUTION WIDTH 11.9 % (11.7-14.4)
[2018-05-18 05:14] LABS: ANION GAP 14.1 mmol/L (8-16); BLOOD UREA NITROGEN 7 mg/dL (7-26); BUN/CREATININE RATIO 9 (6-25); CALCIUM 8.3 mg/dL (8.4-10.2); CARBON DIOXIDE 24 mmol/L (22-29); CHLORIDE 98 mmol/L (98-107); CREATININE, SERUM 0.78 mg/dL (0.72-1.25); EST GLOMERULAR FILTRATION RATE > 60 ML/MIN (60-); GLUCOSE 281 mg/dL (74-118); POTASSIUM 3.1 mmol/L (3.5-5.1); SODIUM 133 mmol/L (136-145)
[2018-05-18 05:37] LABS: FREE T4 (FREE THYROXINE) 1.03 ng/dL (0.9-1.8); THYROID STIMULATING HORMONE 0.825 uIU/mL (0.350-4.940)
[2018-05-18] MEDS ORDERED: INSULIN REGULAR, HUMAN 100 UNIT/1 ML 3ML VIAL ONE (05:42)
[2018-05-18] MEDS: INSULIN REGULAR, HUMAN 100 UNIT/1 ML 3ML VIAL SQ SCH ×4 (06:36→21:30)
[2018-05-18] MEDS: FAMOTIDINE 20 MG TAB PO SCH ×2 (08:21→17:26)
[2018-05-18 15:12] LABS: ANION GAP 13.1 mmol/L (8-16); BLOOD UREA NITROGEN 6 mg/dL (7-26); BUN/CREATININE RATIO 9 (6-25); CALCIUM 8.6 mg/dL (8.4-10.2); CARBON DIOXIDE 30 mmol/L (22-29); CHLORIDE 96 mmol/L (98-107); EST GLOMERULAR FILTRATION RATE > 60 ML/MIN (60-); GLUCOSE 130 mg/dL (74-118); POTASSIUM 3.1 mmol/L (3.5-5.1); SODIUM 136 mmol/L (136-145)
[2018-05-18] MEDS ORDERED: POTASSIUM CHLORIDE 20MEQ/100ML 300 ML ONE (15:29)
[2018-05-18] MEDS ORDERED: POTASSIUM CHLORIDE 20MEQ/100ML 300 ML IV ONE (16:00)
[2018-05-18] MEDS ORDERED: SODIUM CHLORIDE 0.9% 250ML 250 ML ONE (22:59)
[2018-05-19] VITALS: BP 130/89
[2018-05-19] MEDS ORDERED: POTASSIUM CHLORIDE 20 MEQ TAB CR PO STA (01:07)
[2018-05-19 04:00] VITALS: BP 140/90
[2018-05-19 05:12] LABS: BASOPHILS % 0.4 % (0.0-1.0); EOSINOPHILS # (AUTO) 0.1 (0.0-0.4); EOSINOPHILS % 0.9 % (0.0-6.0); HEMATOCRIT 34.8 % (38.2-49.6); HEMOGLOBIN 13.1 g/dL (14.0-18.0); LYMPHOCYTES # (AUTO) 1.6 (1.0-3.2); LYMPHOCYTES % 28.8 % (18.0-39.1); MEAN CORPUSCULAR HEMOGLOBIN 31.3 pg (28-32); MEAN CORPUSCULAR HGB CONC 37.6 g/dL (31-35); MEAN CORPUSCULAR VOLUME 83.1 fL (81-99); MONOCYTES # (AUTO) 0.4 (0.2-0.8); MONOCYTES % 6.7 % (4.4-11.3); NEUTROPHILS # (AUTO) 3.5 (2.1-6.9); PLATELET COUNT 216 x10e3/uL (140-360); RED BLOOD COUNT 4.19 x10e6/uL (4.3-5.7); RED CELL DISTRIBUTION WIDTH 11.8 % (11.7-14.4)
[2018-05-19] MEDS: SODIUM CHLORIDE 0.9% 1000ML 1,000 ML IV SCH (05:40)
[2018-05-19 05:42] LABS: ALANINE AMINOTRANSFERASE 7 IU/L (0-55); ALBUMIN 3.4 g/dL (3.5-5.0); ALBUMIN/GLOBULIN RATIO 1.4 (0.8-2.0); ALKALINE PHOSPHATASE 69 IU/L (40-150); ANION GAP 13.3 mmol/L (8-16); BLOOD UREA NITROGEN 7 mg/dL (7-26); BUN/CREATININE RATIO 11 (6-25); CALCIUM 8.5 mg/dL (8.4-10.2); CARBON DIOXIDE 29 mmol/L (22-29); CHLORIDE 96 mmol/L (98-107); CREATININE, SERUM 0.61 mg/dL (0.72-1.25); EST GLOMERULAR FILTRATION RATE > 60 ML/MIN (60-); GLUCOSE 204 mg/dL (74-118); POTASSIUM 3.3 mmol/L (3.5-5.1); SODIUM 135 mmol/L (136-145)
[2018-05-19] MEDS: INSULIN REGULAR, HUMAN 100 UNIT/1 ML 3ML VIAL SQ SCH (07:30)
[2018-05-19] MEDS: FAMOTIDINE 20 MG TAB PO SCH (07:30)
[2018-05-19 08:00] VITALS: BP 128/81
== END 2018-05-19 09:34 | disposition left against medical advice (07) | DRG 638 ==
LOC: FSED 11:53 → ERHOLD 13:33 → ICU 15:27 → MED/SURG2 05-18 16:22
PROVIDERS: ADMIT Internal Medicine; ATTEND Internal Medicine
DX: E11.10 Type 2 diabetes mellitus with ketoacidosis without coma (principal); E87.1 Hypo-osmolality and hyponatremia; Z79.4 Long term (current) use of insulin; E10.10 Type 1 diabetes mellitus with ketoacidosis without coma; K52.9 Noninfective gastroenteritis and colitis, unspecified; E87.6 Hypokalemia; R00.0 Tachycardia, unspecified; E86.0 Dehydration
CPT/HCPCS: 36415; 71045; 80048; 80053; 81003; 82553; 82948; 83036; 83735; 84132; 84439; 84443; 84484; 85025; 93005; 96361; 96372; 99284; J2405; J3475; J3480; J7030; J7040; J7042; J7050; J7799

== ENCOUNTER 2018-07-23 12:30 | Inpatient (IN) | payer BC ==
[~2018-07-23] VITALS: Ht 177.8 cm; Wt 64.7 kg
[2018-07-23] MEDS: SODIUM CHLORIDE 0.9% 1000ML 1,000 ML IV SCH ×2 (00:05→18:18)
[~2018-07-23 12:30] MED LIST changes: +HUMALOG100 UNIT/1; +LANTUS 3ML100 UNITS/ SC; +ZOFRAN ODT4 MG SL
[2018-07-23] MEDS ORDERED: SODIUM CHLORIDE 0.9% 1000ML 1,000 ML IV SCH (13:15)
[2018-07-23] MEDS ORDERED: DEXTROSE 5%/0.45% SOD CHL 1,000 ML IV SCH (14:03)
[2018-07-23] MEDS ORDERED: INSULIN DETEMIR 100 UNIT/ML PEN SQ PRN (14:15)
[2018-07-23] MEDS ORDERED: POTASSIUM CHLORIDE 20MEQ/100ML 200 ML IV PRN (14:15)
[2018-07-23] MEDS ORDERED: MAGNESIUM SULF 1GRAM/DEXTROSE 100 ML IV PRN (14:15)
[2018-07-23] MEDS ORDERED: INSULIN REGULAR, HUMAN 3ML VL 1 UNIT in SODIUM CHLORIDE 0.9% 100 ML IV SCH ×2 (14:15)
[2018-07-23] MEDS ORDERED: INSULIN REGULAR, HUMAN 3ML VL 100 UNIT in SODIUM CHLORIDE 0.9% 100 ML IV SCH ×2 (14:30)
[2018-07-23] MEDS ORDERED: MORPHINE SULFATE 2 MG/ML SYR IV STA (14:54)
[2018-07-23] MEDS ORDERED: PROMETHAZINE 12.5MG/ NACL 0.9% 12.5 MG/50 ML BAG IV ONE (15:00)
[2018-07-23] MEDS ORDERED: INSULIN REGULAR, HUMAN 100 UNIT/1 ML 3ML VIAL IV ONE (15:00)
[2018-07-23 18:27] VITALS: BP 140/95
[2018-07-23 18:49] LABS: BASOPHILS # (AUTO) 0.1 (0.0-0.1); BASOPHILS % 0.2 % (0.0-1.0); HEMATOCRIT 51.7 % (38.2-49.6); HEMOGLOBIN 17.9 g/dL (14.0-18.0); LYMPHOCYTES # (AUTO) 2.2 (1.0-3.2); LYMPHOCYTES % 8.2 % (18.0-39.1); MEAN CORPUSCULAR HEMOGLOBIN 31.1 pg (28-32); MEAN CORPUSCULAR HGB CONC 34.6 g/dL (31-35); MEAN CORPUSCULAR VOLUME 89.9 fL (81-99); MONOCYTES # (AUTO) 2.2 (0.2-0.8); MONOCYTES % 8.2 % (4.4-11.3); NEUTROPHILS # (AUTO) 22.1 (2.1-6.9); NEUTROPHILS % 82.7 % (38.7-80.0); PLATELET COUNT 261 x10e3/uL (140-360); RED BLOOD COUNT 5.75 x10e6/uL (4.3-5.7); RED CELL DISTRIBUTION WIDTH 12.7 % (11.7-14.4)
[2018-07-23 19:11] LABS: ANION GAP 28.5 mmol/L (8-16); BLOOD UREA NITROGEN 22 mg/dL (7-26); BUN/CREATININE RATIO 15 (6-25); CALCIUM 9.1 mg/dL (8.4-10.2); CHLORIDE 102 mmol/L (98-107); CREATININE, SERUM 1.43 mg/dL (0.72-1.25); EST GLOMERULAR FILTRATION RATE > 60 ML/MIN (60-); GLUCOSE 398 mg/dL (74-118); POTASSIUM 4.5 mmol/L (3.5-5.1); SODIUM 132 mmol/L (136-145)
[2018-07-23] MEDS: METOPROLOL TARTRATE INJ 1 MG/ML VIAL IV PRN ×2 (19:12→23:18)
[2018-07-23 19:13] VITALS: BP 135/89
[2018-07-23 19:13] LABS: CARBON DIOXIDE 6 mmol/L (22-29)
[2018-07-23 19:21] LABS: LYMPHOCYTES % (MANUAL) 11 % (19-48); MONOCYTES % (MANUAL) 10 % (3.4-9.0); NEUTROPHILS % (MANUAL) 79 % (40-74); PLATELET MORPHOLOGY COMMENT NORMAL; RBC MORPHOLOGY COMMENT NORMAL
[2018-07-23 19:22] LABS: PLATELET ESTIMATE ADEQUATE
[2018-07-23 20:00] VITALS: BP 135/89
[2018-07-23 20:10] LABS: CLARITY,URINE CLEAR (CLEAR); COLOR,URINE YELLOW (YELLOW); LEUKOCYTE ESTERASE ,URINE NEGATIVE (NEGATIVE); NITRITE,URINE NEGATIVE (NEGATIVE); PROTEIN,URINE DIPSTICK TRACE (NEGATIVE)
[2018-07-23 20:11] LABS: AMPHETAMINES SCREEN,URINE NEGATIVE (NEGATIVE); BENZODIAZEPINES SCREEN,URINE NEGATIVE (NEGATIVE); BILIRUBIN,URINE NEGATIVE (NEGATIVE); KETONES,URINE 2+ (NEGATIVE); PHENCYCLIDINE SCREEN,URINE NEGATIVE (NEGATIVE); URINE UROBILINOGEN 0.2 mg/dL (0.2 - 1)
[2018-07-23 20:17] LABS: BACTERIA,URINE FEW /HPF; EPITHELIAL CELLS,URINE FEW /LPF; WBC,URINE (MAN) 0-5 /HPF (0-5)
[2018-07-23 23:23] VITALS: BP 139/98
[2018-07-24] VITALS (8 sets, daily range): BP systolic 120–139; BP diastolic 79–98
[2018-07-24 02:22] LABS: ANION GAP 28.3 mmol/L (8-16); BLOOD UREA NITROGEN 19 mg/dL (7-26); BUN/CREATININE RATIO 14 (6-25); CALCIUM 8.9 mg/dL (8.4-10.2); CHLORIDE 108 mmol/L (98-107); CREATININE, SERUM 1.38 mg/dL (0.72-1.25); EST GLOMERULAR FILTRATION RATE > 60 ML/MIN (60-); GLUCOSE 344 mg/dL (74-118); MAGNESIUM 1.9 MG/DL (1.3-2.1); POTASSIUM 5.3 mmol/L (3.5-5.1); SODIUM 137 mmol/L (136-145)
[2018-07-24 02:34] LABS: CARBON DIOXIDE 6 mmol/L (22-29)
[2018-07-24 02:47] LABS: ANION GAP 23.3 mmol/L (8-16); BLOOD UREA NITROGEN 16 mg/dL (7-26); BUN/CREATININE RATIO 14 (6-25); CALCIUM 8.9 mg/dL (8.4-10.2); CHLORIDE 106 mmol/L (98-107); CREATININE, SERUM 1.12 mg/dL (0.72-1.25); EST GLOMERULAR FILTRATION RATE > 60 ML/MIN (60-); GLUCOSE 289 mg/dL (74-118); MAGNESIUM 1.9 MG/DL (1.3-2.1); POTASSIUM 4.3 mmol/L (3.5-5.1); SODIUM 134 mmol/L (136-145)
[2018-07-24 03:01] LABS: CARBON DIOXIDE 9 mmol/L (22-29)
[2018-07-24 05:07] LABS: BASOPHILS % 0.2 % (0.0-1.0); HEMATOCRIT 47.2 % (38.2-49.6); HEMOGLOBIN 16.8 g/dL (14.0-18.0); LYMPHOCYTES # (AUTO) 1.2 (1.0-3.2); MEAN CORPUSCULAR HEMOGLOBIN 31.1 pg (28-32); MEAN CORPUSCULAR HGB CONC 35.6 g/dL (31-35); MEAN CORPUSCULAR VOLUME 87.4 fL (81-99); MONOCYTES # (AUTO) 1.1 (0.2-0.8); NEUTROPHILS # (AUTO) 15.2 (2.1-6.9); NEUTROPHILS % 86.2 % (38.7-80.0); PLATELET COUNT 286 x10e3/uL (140-360); RED CELL DISTRIBUTION WIDTH 12.7 % (11.7-14.4)
[2018-07-24 05:37] LABS: ANION GAP 21.2 mmol/L (8-16); BLOOD UREA NITROGEN 14 mg/dL (7-26); BUN/CREATININE RATIO 13 (6-25); CALCIUM 8.8 mg/dL (8.4-10.2); CARBON DIOXIDE 10 mmol/L (22-29); CHLORIDE 108 mmol/L (98-107); CREATININE, SERUM 1.09 mg/dL (0.72-1.25); EST GLOMERULAR FILTRATION RATE > 60 ML/MIN (60-); GLUCOSE 259 mg/dL (74-118); MAGNESIUM 1.9 MG/DL (1.3-2.1); POTASSIUM 4.2 mmol/L (3.5-5.1); SODIUM 135 mmol/L (136-145)
[2018-07-24] MEDS: SODIUM CHLORIDE 0.9% 1000ML 1,000 ML IV SCH (06:31)
[2018-07-24 07:20] LABS: CHOL/HDL RATIO 2.8 (3.9-4.7)
[2018-07-24 07:43] LABS: THYROID STIMULATING HORMONE 0.512 uIU/mL (0.350-4.940)
[2018-07-24] MEDS ORDERED: SODIUM CHLORIDE 0.9% 1000ML 1,000 ML IV SCH (07:45)
--- NOTE | 2018-07-24 08:38 | History and Physical ---
PRIMARY CARE PHYSICIAN: Does not recall. CHIEF COMPLAINT: Nausea, vomiting. HISTORY OF PRESENT ILLNESS: This is a 23-year-old man with a history of diabetes mellitus type 1, now developing intractable nausea and vomiting, came to the hospital, found to have been in DKA, admitted for further evaluation and management. Denies any chest pain. No shortness of breath. PAST MEDICAL HISTORY: Diabetes mellitus type 1, acute gastroenteritis, hypokalemia, hyponatremia. PAST SURGICAL HISTORY: None. ALLERGIES: PER ELECTRONIC MEDICAL RECORD. FAMILY/SOCIAL HISTORY: Patient is . No alcohol, illicits, or cigarettes. MEDICATIONS: Per electronic medical record. REVIEW OF SYSTEMS: Denies any dizziness, chest pain, shortness of breath, fever, chills, sweats, headache, back pain, vision changes, leg pain. PHYSICAL EXAMINATION: VITAL SIGNS: Have been reviewed. GENERAL APPEARANCE: Tired-appearing man resting in bed. HEENT: Anicteric. CARDIOVASCULAR: Normal S1 and S2. LUNGS: Moderate breath sounds. ABDOMEN: Soft, nontender, nondistended. EXTREMITIES: No edema or calf tenderness. NEUROLOGICAL: He is alert and oriented x3. Moving all extremities. SKIN: Dry. PSYCHIATRIC: Flat affect. LABS: Reviewed. MEDICATIONS: Reviewed. ASSESSMENT: A 23-year-old man. 1. Diabetic ketoacidosis. 2. Diabetes mellitus type 1, likely uncontrolled. 3. Hypertension. 4. Dehydration. 5. Acute gastroenteritis. PLAN: 1. Rehydrate patient. 2. Give more fluids. 3. Give bicarb. 4. Follow up labs every 4 hours. 5. Uncontrolled diabetes mellitus type 1. Hemoglobin A1c is 9.8, LDL is 93, and triglycerides 120. 6. Hyperlipidemia. Will treat with statin medication. 7. Will use SCD and Pepcid for prophylaxis. 8. Monitor closely. Follow up labs. Job#: [id number]
[2018-07-24] MEDS: FAMOTIDINE 20 MG TAB PO SCH ×2 (09:15→17:00)
[2018-07-24 10:08] LABS: ANION GAP 21.3 mmol/L (8-16); BLOOD UREA NITROGEN 13 mg/dL (7-26); BUN/CREATININE RATIO 11 (6-25); CALCIUM 9.3 mg/dL (8.4-10.2); CARBON DIOXIDE 15 mmol/L (22-29); CHLORIDE 104 mmol/L (98-107); CREATININE, SERUM 1.18 mg/dL (0.72-1.25); EST GLOMERULAR FILTRATION RATE > 60 ML/MIN (60-); GLUCOSE 238 mg/dL (74-118); POTASSIUM 4.3 mmol/L (3.5-5.1); SODIUM 136 mmol/L (136-145)
[2018-07-24] MEDS ORDERED: SOD CHL IV ONE (11:45)
[2018-07-24] MEDS ORDERED: SODIUM BICARBONATE IV ONE (11:45)
[2018-07-24] MEDS ORDERED: DEXTROSE IV ONE (11:45)
[2018-07-24 15:02] LABS: ANION GAP 15.6 mmol/L (8-16); BLOOD UREA NITROGEN 9 mg/dL (7-26); BUN/CREATININE RATIO 11 (6-25); CALCIUM 8.2 mg/dL (8.4-10.2); CARBON DIOXIDE 15 mmol/L (22-29); CHLORIDE 103 mmol/L (98-107); CREATININE, SERUM 0.82 mg/dL (0.72-1.25); EST GLOMERULAR FILTRATION RATE > 60 ML/MIN (60-); GLUCOSE 218 mg/dL (74-118); MAGNESIUM 1.5 MG/DL (1.3-2.1); POTASSIUM 3.6 mmol/L (3.5-5.1); SODIUM 130 mmol/L (136-145)
[2018-07-24 19:11] LABS: ANION GAP 16.5 mmol/L (8-16); BLOOD UREA NITROGEN 8 mg/dL (7-26); BUN/CREATININE RATIO 10 (6-25); CALCIUM 8.3 mg/dL (8.4-10.2); CARBON DIOXIDE 17 mmol/L (22-29); CHLORIDE 100 mmol/L (98-107); EST GLOMERULAR FILTRATION RATE > 60 ML/MIN (60-); GLUCOSE 219 mg/dL (74-118); MAGNESIUM 1.6 MG/DL (1.3-2.1); POTASSIUM 3.5 mmol/L (3.5-5.1); SODIUM 130 mmol/L (136-145)
[2018-07-24 22:46] LABS: ANION GAP 15.1 mmol/L (8-16); BLOOD UREA NITROGEN 7 mg/dL (7-26); BUN/CREATININE RATIO 9 (6-25); CALCIUM 8.2 mg/dL (8.4-10.2); CARBON DIOXIDE 21 mmol/L (22-29); CHLORIDE 97 mmol/L (98-107); CREATININE, SERUM 0.75 mg/dL (0.72-1.25); EST GLOMERULAR FILTRATION RATE > 60 ML/MIN (60-); GLUCOSE 248 mg/dL (74-118); MAGNESIUM 1.5 MG/DL (1.3-2.1); POTASSIUM 3.1 mmol/L (3.5-5.1); SODIUM 130 mmol/L (136-145)
[2018-07-24] MEDS ORDERED: SODIUM CHLORIDE 0.9% 1000ML 1,000 ML ONE (23:07)
[2018-07-24] MEDS: ONDANSETRON HCL INJ 2 MG/ML VIAL IV PRN (23:59)
[2018-07-25] VITALS (7 sets, daily range): BP systolic 108–140; BP diastolic 73–97
[2018-07-25] MEDS: DEXTROSE 5%/0.45% SOD CHL 1,000 ML IV SCH ×3 (02:34→13:45)
[2018-07-25 02:43] LABS: ANION GAP 14.9 mmol/L (8-16); BLOOD UREA NITROGEN 6 mg/dL (7-26); BUN/CREATININE RATIO 8 (6-25); CALCIUM 8.3 mg/dL (8.4-10.2); CARBON DIOXIDE 24 mmol/L (22-29); CHLORIDE 99 mmol/L (98-107); CREATININE, SERUM 0.73 mg/dL (0.72-1.25); EST GLOMERULAR FILTRATION RATE > 60 ML/MIN (60-); GLUCOSE 196 mg/dL (74-118); MAGNESIUM 1.5 MG/DL (1.3-2.1); SODIUM 135 mmol/L (136-145)
[2018-07-25 02:46] LABS: POTASSIUM 2.9 mmol/L (3.5-5.1)
[2018-07-25] MEDS ORDERED: POTASSIUM CHLORIDE 20MEQ/100ML 200 ML IV PRN (03:00)
[2018-07-25] MEDS: ONDANSETRON HCL INJ 2 MG/ML VIAL IV PRN (05:09)
[2018-07-25 06:26] LABS: ANION GAP 16.2 mmol/L (8-16); BLOOD UREA NITROGEN 7 mg/dL (7-26); BUN/CREATININE RATIO 10 (6-25); CALCIUM 8.2 mg/dL (8.4-10.2); CARBON DIOXIDE 23 mmol/L (22-29); CHLORIDE 98 mmol/L (98-107); EST GLOMERULAR FILTRATION RATE > 60 ML/MIN (60-); GLUCOSE 207 mg/dL (74-118); MAGNESIUM 1.5 MG/DL (1.3-2.1); POTASSIUM 3.2 mmol/L (3.5-5.1); SODIUM 134 mmol/L (136-145)
[2018-07-25] MEDS: FAMOTIDINE 20 MG TAB PO SCH ×2 (07:30→16:30)
[2018-07-25 11:09] LABS: BLOOD UREA NITROGEN 6 mg/dL (7-26); BUN/CREATININE RATIO 9 (6-25); CALCIUM 8.3 mg/dL (8.4-10.2); CARBON DIOXIDE 25 mmol/L (22-29); CHLORIDE 96 mmol/L (98-107); CREATININE, SERUM 0.68 mg/dL (0.72-1.25); EST GLOMERULAR FILTRATION RATE > 60 ML/MIN (60-); GLUCOSE 231 mg/dL (74-118); SODIUM 133 mmol/L (136-145)
[2018-07-25] MEDS ORDERED: MAGNESIUM SULF 1GRAM/DEXTROSE 100 ML IV ONE (12:25)
[2018-07-25] MEDS ORDERED: POTASSIUM CHLORIDE 20MEQ/100ML 100 ML ONE (12:25)
[2018-07-25] MEDS ORDERED: POTASSIUM CHLORIDE 20 MEQ TAB CR PO NR ×2 (13:00→19:41)
[2018-07-25] MEDS: INSULIN DETEMIR 100 UNIT/ML PEN SQ SCH ×2 (13:10→20:17)
[2018-07-25 14:59] LABS: ANION GAP 18.1 mmol/L (8-16); BLOOD UREA NITROGEN 6 mg/dL (7-26); BUN/CREATININE RATIO 9 (6-25); CALCIUM 8.5 mg/dL (8.4-10.2); CARBON DIOXIDE 25 mmol/L (22-29); CHLORIDE 95 mmol/L (98-107); EST GLOMERULAR FILTRATION RATE > 60 ML/MIN (60-); GLUCOSE 272 mg/dL (74-118); MAGNESIUM 1.9 MG/DL (1.3-2.1); POTASSIUM 3.1 mmol/L (3.5-5.1); SODIUM 135 mmol/L (136-145)
[2018-07-25 19:06] LABS: ANION GAP 15.4 mmol/L (8-16); BLOOD UREA NITROGEN 6 mg/dL (7-26); BUN/CREATININE RATIO 8 (6-25); CALCIUM 8.4 mg/dL (8.4-10.2); CARBON DIOXIDE 26 mmol/L (22-29); CHLORIDE 95 mmol/L (98-107); CREATININE, SERUM 0.71 mg/dL (0.72-1.25); EST GLOMERULAR FILTRATION RATE > 60 ML/MIN (60-); GLUCOSE 249 mg/dL (74-118); MAGNESIUM 1.8 MG/DL (1.3-2.1); POTASSIUM 3.4 mmol/L (3.5-5.1); SODIUM 133 mmol/L (136-145)
[2018-07-25] MEDS ORDERED: DEXTROSE 50% SYRINGE 50 ML IV PRN (19:45)
[2018-07-25] MEDS: INSULIN REGULAR, HUMAN 100 UNIT/1 ML 3ML VIAL SQ SCH (20:10)
[2018-07-26] VITALS: BP_SYST 121; BP_SYST 163; BP_DIAS 79; BP_DIAS 93
[2018-07-26] MEDS: DEXTROSE 5%/0.45% SOD CHL 1,000 ML IV SCH ×2 (00:25→08:15)
[2018-07-26] MEDS: ONDANSETRON HCL INJ 2 MG/ML VIAL IV PRN (00:27)
[2018-07-26 04:00] VITALS: BP 121/79
[2018-07-26 04:45] LABS: BASOPHILS % 0.1 % (0.0-1.0); EOSINOPHILS % 0.1 % (0.0-6.0); HEMATOCRIT 39.8 % (38.2-49.6); HEMOGLOBIN 14.7 g/dL (14.0-18.0); LYMPHOCYTES # (AUTO) 1.8 (1.0-3.2); MEAN CORPUSCULAR HGB CONC 36.9 g/dL (31-35); MONOCYTES # (AUTO) 0.6 (0.2-0.8); MONOCYTES % 8.4 % (4.4-11.3); NEUTROPHILS # (AUTO) 4.4 (2.1-6.9); NEUTROPHILS % 65.3 % (38.7-80.0); PLATELET COUNT 204 x10e3/uL (140-360); RED BLOOD COUNT 4.74 x10e6/uL (4.3-5.7); RED CELL DISTRIBUTION WIDTH 11.7 % (11.7-14.4)
[2018-07-26 05:05] LABS: ANION GAP 15.2 mmol/L (8-16); BLOOD UREA NITROGEN 8 mg/dL (7-26); BUN/CREATININE RATIO 12 (6-25); CALCIUM 8.5 mg/dL (8.4-10.2); CARBON DIOXIDE 28 mmol/L (22-29); CHLORIDE 97 mmol/L (98-107); CREATININE, SERUM 0.66 mg/dL (0.72-1.25); EST GLOMERULAR FILTRATION RATE > 60 ML/MIN (60-); GLUCOSE 197 mg/dL (74-118); POTASSIUM 3.2 mmol/L (3.5-5.1); SODIUM 137 mmol/L (136-145)
[2018-07-26 08:00] VITALS: BP 136/77
[2018-07-26] MEDS: FAMOTIDINE 20 MG TAB PO SCH (09:00)
[2018-07-26] MEDS: INSULIN DETEMIR 100 UNIT/ML PEN SQ SCH (09:01)
[2018-07-26] MEDS: INSULIN REGULAR, HUMAN 100 UNIT/1 ML 3ML VIAL SQ SCH ×2 (09:01→12:25)
[2018-07-26] MEDS ORDERED: POTASSIUM CHLORIDE 20 MEQ TAB CR PO ONE (10:00)
[2018-07-26] MEDS ORDERED: FAMOTIDINE20 MG PO (10:21)
[2018-07-26] MEDS ORDERED: LEVEMIR100 UNIT/1 SC (10:21)
[2018-07-26 12:00] VITALS: BP 114/67
--- NOTE | 2018-07-29 00:04 | Progress Note ---
DATE: July 25, 2018 TIME: 7:15 a.m. OVERNIGHT: Feeling better. REVIEW OF SYSTEMS: Denies any dizziness, chest pain. PHYSICAL EXAMINATION: VITAL SIGNS: Reviewed. GENERAL APPEARANCE: Tired-appearing man resting in bed. HEENT: Anicteric. CARDIOVASCULAR: Normal S1 and S2. LUNGS: Moderate breath sounds. ABDOMEN: Soft, nontender, nondistended. EXTREMITIES: No edema or calf tenderness. NEUROLOGICAL: Alert and appropriate x3. Moving all extremities. SKIN: Dry. PSYCHIATRIC: Normal affect. LABS: Reviewed. MEDICATIONS: Reviewed. ASSESSMENT: A 23-year-old man. 1. Diabetic ketoacidosis. 2. Diabetes mellitus type 1, uncontrolled. 3. Hypertension. 4. Dehydration. 5. Acute gastroenteritis. PLAN: 1. Continue IV fluids. 2. Continue insulin regimen. 3. Continue counseling. 4. Hemoglobin A1c 9.8, LDL 93. 5. Check labs. 6. Discharge planning. Job#: [id number]
--- NOTE | 2018-07-29 00:08 | Discharge Summary ---
PRINCIPAL DIAGNOSES: 1. Diabetic ketoacidosis. 2. Diabetes mellitus type 1, uncontrolled. 3. Hypertension. 4. Dehydration. 5. Acute gastroenteritis. 6. Hyperlipidemia. SECONDARY DIAGNOSIS: Diabetes mellitus type 1. CHIEF COMPLAINT: Nausea, vomiting. HISTORY OF PRESENT ILLNESS: Xkczyg-[id number]-[id number]-old man with nausea and vomiting. Please refer to the H and P for further details. HOSPITAL COURSE: Patient found to have diabetic ketoacidosis, treated with IV fluids and insulin. Diabetes mellitus type 1, uncontrolled. Counseled on regimen and medications. He had acute gastroenteritis, also treated. Patient's hemoglobin A1c was 9.8, HDL 93, triglycerides 120. Medications were adjusted and patient discharged home, started on statin medication. DISCHARGE MEDICATIONS: Per electronic medical record. FOLLOWUP: With primary care doctor in 1 week. CONDITION ON DISCHARGE: Stable and improving. DISCHARGE LOCATION: Home. JEREMIE BANKS MD Job#: [id number]
== END 2018-07-26 12:33 | disposition home or self-care (01) | DRG 639 ==
LOC: FSED 12:30 → ERHOLD 14:06 → IMCU 17:25 → MED/SURG3 07-25 23:35
PROVIDERS: ADMIT Internal Medicine; ATTEND Internal Medicine
DX: E10.10 Type 1 diabetes mellitus with ketoacidosis without coma (principal); K52.9 Noninfective gastroenteritis and colitis, unspecified; E86.0 Dehydration; I10 Essential (primary) hypertension; E78.5 Hyperlipidemia, unspecified
CPT/HCPCS: 36415; 80048; 80061; 80307; 81001; 81003; 82948; 83036; 83735; 84443; 85025; 93005; 96361; 96365; 96366; 96372; 99284; J2405; J3475; J3480; J7030; J7050

== ENCOUNTER 2018-09-09 21:07 | Inpatient (IN) | payer BC ==
[~2018-09-09] VITALS: Ht 175.3 cm; Wt 64.9 kg
[2018-09-09] MEDS: DEXTROSE 5%/0.45% SOD CHL 1,000 ML IV SCH (04:00)
[~2018-09-09 21:07] MED LIST changes: +FAMOTIDINE20 MG PO
--- OUTSIDE RECORDS SUMMARY | 2018-09-09 21:11 | XMS REPORT | Clinical Summary ---
Author Author DANA [facility] Address Unknown Phone Unavailable Care Team Providers Care Addictions Recovery Specialist Name Role Phone Sharpless PCP Allergies No Known Allergies Medications End Date Status Medication Sig Dispensed Refills Start Date Active insulin regular (HUMULIN Inject 0 R,NOVOLIN R) 100 unit/mL subcutaneousl injection y 3 (three) times daily before meals Use as directed. Sliding scale . Active insulin NPH 100 unit/mL Inject 15 0 (3 mL) InPnIndications: Units type 1 diabetes mellitus subcutaneousl y 2 (two) times daily. 03/18/2018 promethazine (PHENERGAN) Take 1 tablet 30 tablet 0 25 MG tablet (25 mg total) 8 by mouth every 6 (six) hours as needed for Nausea for up to 7 days. Active Problems Problem Noted Date DKA (diabetic ketoacidoses) 03/09/2018 High anion gap metabolic acidosis 03/09/2018 Hyperglycemia 03/09/2018 Encounters Care Team Description Date Type Specialty Paxton Stanley MD Zatakia, Jigna Hiren, [facility] keto[facility] without coma associated with type 1 diabetes mellitus (HCC); High anion gap metabolic acidosis; Hyperglycemia; Leukocytosis, unspecified type; Hypokalemia 03/09/2018 Hospital General Internal Medicine - Encounter 03/11/2018 03/09/2018 Orders Only General Internal Medicine after 09/08/2017 Family History Medical History Relation Name Comments Diabetes Father Arthritis Mother Relation Name Status Comments Father Mother Social History Date Tobacco Use Types Packs/Day Years Used Current Every Day Smoker 0.25 Smokeless Tobacco: Never Used Tobacco Cessation: Ready to Quit: No Alcohol Use Drinks/Week oz/Week Comments No Sex Assigned at Date Recorded Not on file Industry Job Start Date Occupation Not on file Not on file Not on file Travel End Travel History Travel Start No recent travel history available. Last Filed Vital Signs Time Taken Vital Sign Reading 03/11/2018 11:32 AM CDT Blood Pressure 137/83 03/11/2018 11:32 AM CDT Pulse 80 03/11/2018 11:32 AM CDT Temperature 37.3 C (99.1 F) 03/11/2018 11:32 AM CDT Respiratory Rate 20 03/11/2018 11:32 AM CDT Oxygen Saturation 99% - Inhaled Oxygen - Concentration 03/11/2018 6:00 AM CDT Weight 67.5 kg (148 lb 14.4 oz) 03/10/2018 12:10 PM CDT Height 180.3 cm (5' 11") 03/11/2018 6:00 AM CDT Body Mass Index 20.77 Plan of Treatment Not on file Procedures Comments Procedure Name Priority Date/Time Associated Diagnosis RHYTHM STRIP - SCAN 03/13/2018 10:31 AM CDT POCT-GLUCOSE METER Routine 03/11/2018 2:21 PM CDT POCT-GLUCOSE METER Routine 03/11/2018 11:20 AM CDT POCT-GLUCOSE METER Routine 03/11/2018 7:26 AM CDT CBC (HEMOGRAM ONLY) Routine 03/11/2018 4:25 AM CDT BASIC METABOLIC PANEL (7) Routine 03/11/2018 4:25 AM CDT POCT-GLUCOSE METER Routine 03/11/2018 2:12 AM CDT POCT-GLUCOSE METER Routine 03/10/2018 9:09 PM CDT TRANSFUSION SERVICE 03/10/2018 REPORT - SCAN 5:40 PM CDT POCT-GLUCOSE METER Routine 03/10/2018 4:27 PM CDT POCT-GLUCOSE METER Routine 03/10/2018 11:05 AM CDT RESPIRATORY PANEL [facility] Add-On 03/10/2018 9:03 AM CDT CBC W/PLT COUNT & AUTO Routine 03/10/2018 DIFFERENTIAL 9:02 AM CDT CBC W/PLT COUNT & AUTO Routine 03/10/2018 DIFFERENTIAL 9:02 AM CDT XR CHEST 1 VIEW STAT 03/10/2018 PORTABLE/BEDSIDE 8:51 AM CDT POCT-GLUCOSE METER Routine 03/10/2018 8:01 AM CDT POCT-GLUCOSE METER Routine 03/10/2018 4:40 AM CDT BASIC METABOLIC PANEL (7) Routine 03/10/2018 4:35 AM CDT MAGNESIUM Routine 03/10/2018 4:35 AM CDT PHOSPHORUS Routine 03/10/2018 4:35 AM CDT POCT-GLUCOSE METER Routine 03/10/2018 12:30 AM CDT PHOSPHORUS Routine 03/09/2018 8:16 PM CDT BASIC METABOLIC PANEL (7) Routine 03/09/2018 8:16 PM CDT POCT-GLUCOSE METER Routine 03/09/2018 8:14 PM CDT POCT-GLUCOSE METER Routine 03/09/2018 6:05 PM CDT POCT-GLUCOSE METER Routine 03/09/2018 5:05 PM CDT PHOSPHORUS Routine 03/09/2018 4:37 PM CDT BASIC METABOLIC PANEL (7) Routine 03/09/2018 4:37 PM CDT POCT-GLUCOSE METER Routine 03/09/2018 3:35 PM CDT POCT-GLUCOSE METER Routine 03/09/2018 1:41 PM CDT BASIC METABOLIC PANEL (7) Routine 03/09/2018 12:12 PM CDT POCT-GLUCOSE METER Routine 03/09/2018 11:56 AM CDT POCT-GLUCOSE METER Routine 03/09/2018 10:47 AM CDT POCT-GLUCOSE METER Routine 03/09/2018 8:37 AM CDT PHOSPHORUS Routine 03/09/2018 8:32 AM CDT BASIC METABOLIC PANEL (7) Routine 03/09/2018 8:32 AM CDT GLUCOSE Routine 03/09/2018 8:32 AM CDT URINALYSIS W/ MICROSCOPIC Routine 03/09/2018 7:20 AM CDT URINE CULTURE Routine 03/09/2018 7:20 AM CDT POCT-GLUCOSE METER Routine 03/09/2018 7:04 AM CDT PHOSPHORUS Routine 03/09/2018 6:55 AM CDT POTASSIUM Routine 03/09/2018 6:54 AM CDT BASIC METABOLIC PANEL (7) Routine 03/09/2018 6:54 AM CDT PROCALCITONIN Routine 03/09/2018 6:19 AM CDT PHOSPHORUS Routine 03/09/2018 6:19 AM CDT BASIC METABOLIC PANEL (7) Routine 03/09/2018 6:19 AM CDT POCT-GLUCOSE METER Routine 03/09/2018 5:59 AM CDT POCT-GLUCOSE METER Routine 03/09/2018 5:06 AM CDT POCT-GLUCOSE METER Routine 03/09/2018 4:06 AM CDT ECG 12-LEAD Routine 03/09/2018 3:44 AM CDT Procedure Note - Interface, External Ris In - 03/09/2018 3:58 AM CDT Ventricula r Rate 81 BPM Atrial Rate 81 BPM P-R Interval 112 ms QRS Duration 90 ms Q-T Interval 358 ms QTC Calculatio n(Bazett) 415 ms P [place] 60 degrees R [place] 58 degrees T [place] 20 degrees Normal sinus rhythm Nonspecifi c T wave abnormalit y Abnormal ECG When compared with ECG of 8 03:43, No significan t change was found ECG 12-LEAD STAT 03/09/2018 3:44 AM CDT ECG 12-LEAD Routine 03/09/2018 3:43 AM CDT ECG 12-LEAD Routine 03/09/2018 3:43 AM CDT Procedure Note - Interface, External Ris In - 03/09/2018 3:57 AM CDT Ventricula r Rate 80 BPM Atrial Rate 80 BPM P-R Interval 112 ms QRS Duration 90 ms Q-T Interval 354 ms QTC Calculatio n(Bazett) 408 ms P [place] 64 degrees R [place] 58 degrees T [place] 20 degrees Normal sinus rhythm Nonspecifi c T wave abnormalit y Abnormal ECG No previous ECGs available BLOOD GAS, VENOUS STAT 03/09/2018 3:15 AM CDT POCT-GLUCOSE METER Routine 03/09/2018 3:07 AM CDT BLOOD CULTURE Routine 03/09/2018 3:01 AM CDT BLOOD CULTURE Routine 03/09/2018 3:01 AM CDT TYPE AND SCREEN, Routine 03/09/2018 AUTOMATED 2:49 AM CDT T4, FREE Routine 03/09/2018 2:44 AM CDT TSH/FREE T4 IF INDICATED Routine 03/09/2018 2:44 AM CDT LACTIC ACID, VENOUS, Routine 03/09/2018 WHOLE BLOOD 2:44 AM CDT CBC W/PLT COUNT & AUTO Routine 03/09/2018 DIFFERENTIAL 2:43 AM CDT CBC W/PLT COUNT & AUTO Routine 03/09/2018 DIFFERENTIAL 2:43 AM CDT HEMOGLOBIN A1C Routine 03/09/2018 2:41 AM CDT KETONE, BLOOD STAT 03/09/2018 2:41 AM CDT HEPATIC FUNCTION PANEL Routine 03/09/2018 2:38 AM CDT TROPONIN I Routine 03/09/2018 2:38 AM CDT LIPASE Routine 03/09/2018 2:38 AM CDT PHOSPHORUS STAT 03/09/2018 2:38 AM CDT MAGNESIUM STAT 03/09/2018 2:38 AM CDT BASIC METABOLIC PANEL (7) STAT 03/09/2018 2:38 AM CDT POTASSIUM Routine 03/09/2018 2:38 AM CDT GLUCOSE Routine 03/09/2018 2:38 AM CDT POCT-GLUCOSE METER Routine 03/09/2018 1:23 AM CDT after 09/08/2017 Results * RHYTHM STRIP - SCAN (03/13/2018 10:31 AM CDT) Narrative Performed At * POC-Glucose meter (03/11/2018 2:21 PM CDT) Only the most recent of 24 results within the time period is included. POC-Glucose Meter 205 (H)Comment: TESTED AT 70 - 110 mg/dL [facility] [address] [facility] [id number] Specimen Blood Performing Organization Address City/State/Zipcode Phone Number [facility] [address] [place] [address] [facility] * CBC (Hemogram only) (03/11/2018 4:25 AM CDT) WBC 7.1 3.5 - 10.5 K/L [facility] RBC 5.15 4.63 - 6.08 M/L [facility] Hemoglobin 15.7 13.7 - 17.5 GM/DL [facility] Hematocrit 43.7 40.1 - 51.0 % [facility] MCV 84.9 79.0 - 92.2 fL [facility] MCH 30.5 25.7 - 32.2 pg [facility] MCHC 35.9 32.3 - 36.5 GM/DL [facility] RDW 11.5 (L) 11.6 - 14.4 % [facility] Platelets 214 150 - 450 K/CU MM [facility] MPV 9.4 9.4 - 12.4 fL [facility] nRBC 0 0 - 0 /100 WBC [facility] Specimen Blood Performing Organization Address City/State/Zipcode Phone Number [facility] [address] [place] [address] [facility] * Basic Metabolic Panel (03/11/2018 4:25 AM CDT) Only the most recent of 9 results within the time period is included. Sodium 134 (L) 136 - 145 meq/L [facility] Potassium 3.3 (L) 3.5 - 5.1 meq/L [facility] Chloride 97 (L) 98 - 107 meq/L [facility] CO2 24 22 - 29 meq/L [facility] BUN 11 7 - 21 mg/dL [facility] Creatinine 0.71 0.57 - 1.25 mg/dL [facility] Glucose 153 (H) 70 - 105 mg/dL [facility] Calcium 8.8 8.4 - 10.2 mg/dL [facility] EGFR 165Comment: ESTIMATED GFR IS mL/min/1.73 sq m [facility] NOT ACCURATE CREATININE [facility] CLEARANCE IN PREDICTING GLOMERULAR FILTRATION RATE. ESTIMATED GFR IS NOT APPLICABLE FOR DIALYSIS PATIENTS. Specimen Blood Performing Organization Address City/State/Zipcode Phone Number [facility] [address] [place] [address] [facility] * TRANSFUSION SERVICE REPORT - SCAN (03/10/2018 5:40 PM CDT) Narrative Performed At * RESPIRATORY PANEL [facility] (03/10/2018 9:03 AM CDT) Human Metapneumovirus Not detected Not detected, [facility] Inconclusive [facility] Rhinovirus Not detected Not detected, [facility] Inconclusive [facility] Influenza A Not detected Not detected, [facility] Inconclusive [facility] Influenza A subtype H1 Not detected Not detected, [facility] Inconclusive [facility] Influenza A Subtype H3 Not detected Not detected, [facility] Inconclusive [facility] Influenza A Subtype Not detected Not detected, [facility] H1-2009 Inconclusive [facility] Influenza B Not detected Not detected, [facility] Inconclusive [facility] Respiratory Syncytial Not detected Not detected, [facility] Virus Inconclusive [facility] Parainfluenza Virus 1 Not detected Not detected, [facility] Inconclusive [facility] Parainfluenza Virus 2 Not detected Not detected, [facility] Inconclusive [facility] Parainfluenza virus 3 Not detected Not detected, [facility] Inconclusive [facility] Parainfluenza Virus 4 Not detected Not detected, [facility] Inconclusive [facility] Adenovirus Not detected Not detected, [facility] Inconclusive [facility] Coronavirus 229E Not detected Not detected, [facility] Inconclusive [facility] Coronavirus HKU1 Not detected Not detected, [facility] Inconclusive [facility] Coronavirus NL63 Not detected Not detected, [facility] Coronavirus OC43 Not detected Not detected, [facility] [place] Bordetella Pertussis Not detected Not detected, [facility] Chlamydophila Pneumoniae Not detected Not detected, [facility] Mycoplasma Pneumoniae Not detected Not detected, [facility] Specimen Nasopharyngeal - Nasopharyngeal Swab Performing Organization Address City/State/Zipcode Phone Number [facility] [address] [place] [address] [facility] * CBC with platelet count + automated diff (03/10/2018 9:02 AM CDT) Only the most recent of 2 results within the time period is included. WBC 7.5 3.5 - 10.5 K/L [facility] RBC 5.14 4.63 - 6.08 M/L [facility] Hemoglobin 15.6 13.7 - 17.5 GM/DL [facility] Hematocrit 44.5 40.1 - 51.0 % [facility] MCV 86.6 79.0 - 92.2 fL [facility] MCH 30.4 25.7 - 32.2 pg [facility] MCHC 35.1 32.3 - 36.5 GM/DL [facility] RDW 11.8 11.6 - 14.4 % [facility] Platelets 229 150 - 450 K/CU MM [facility] MPV 9.4 9.4 - 12.4 fL [facility] nRBC 0 0 - 0 /100 WBC [facility] % Neutros 71 % [facility] % Lymphs 23 % [facility] % Monos 6 % [facility] % Eos 0 % [facility] % Baso 0 % [facility] # Neutros 5.34 1.78 - 5.38 K/L [facility] # Lymphs 1.73 1.32 - 3.57 K/L [facility] # Monos 0.43 0.30 - 0.82 K/L [facility] # Eos 0.01 (L) 0.04 - 0.54 K/L [facility] # Baso 0.01 0.01 - 0.08 K/L [facility] Immature 0 0 - 1 % [facility] Granulocytes-Relative [facility] Specimen Blood Performing Organization Address City/State/Zipcode Phone Number [facility] [address] [place] [address] [facility] * XR chest 1 view portable / bedside (03/10/2018 8:51 AM CDT) Narrative Performed At FINAL REPORT [facility] INDICATION: assess for acute process COMPARISON: None. TECHNIQUE: Chest radiograph, single view, portable technique. FINDINGS / IMPRESSION: There is no evidence of pneumonia or pulmonary edema. Cardiac and mediastinal contours are unremarkable. No pleural effusion or pneumothorax is demonstrated. Osseous structures are unremarkable. Signed: Erasmo Montgomery MD Report Verified Date/Time:03/10/2018 09:41:23 Reading Location: [facility] Radiology Reading Room Procedure Note Interface, External Ris In - 03/10/2018 9:43 AM CDT FINAL REPORT INDICATION: assess for acute process COMPARISON: None. TECHNIQUE: Chest radiograph, single view, portable technique. FINDINGS / IMPRESSION: There is no evidence of pneumonia or pulmonary edema. Cardiac and mediastinal contours are unremarkable. No pleural effusion or pneumothorax is demonstrated. Osseous structures are unremarkable. Signed: Erasmo Montgomery MD Report Verified Date/Time: 03/10/2018 09:41:23 Reading Location: [facility] Radiology Reading Room Performing Organization Address City/State/Zipcode Phone Number [facility] * Phosphorus (03/10/2018 4:35 AM CDT) Only the most recent of 7 results within the time period is included. Phosphorus 2.4 2.3 - 4.7 mg/dL [facility] Specimen Blood Performing Organization Address [facility] [place] [address] [phone] * Magnesium (03/10/2018 4:35 AM CDT) Only the most recent of 2 results within the time period is included. Magnesium 1.9 1.6 - 2.6 mg/dL [facility] Specimen Blood Performing Organization Address [facility] Phone Number [place] [phone] * Glucose, serum (03/09/2018 8:32 AM CDT) Only the most recent of 2 results within the time period is included. Glucose 145 (H) 70 - 105 mg/dL [facility] Specimen Blood Narrative Performed At If last glucose was less than 500, may do bedside glucose instead of serum [facility] glucose. [facility] Performing Organization Address [facility] [place] [address] [phone] [address] * Urinalysis w/ Microscopic (03/09/2018 7:20 AM CDT) Color, UA Yellow [facility] Clarity, UA Clear [facility] Specific Lottie, UA 1.024 1.001 - 1.035 [facility] pH, UA 6.0 5.0 - 8.0 [facility] Protein, UA 30 mg/dL (A) Negative [facility] Glucose, UA >1000 mg/dL (A) Negative [facility] Ketones, UA >150 mg/dL (A) Negative [facility] Bilirubin, UA Negative Negative [facility] Blood, UA Negative Negative [facility] Nitrite, UA Negative Negative [facility] Leukocytes, UA Moderate (A) Negative [facility] Urobilinogen, UA 0.2 0.2 - 1.0 mg/dL [facility] RBC, UA <1 /HPF [facility] WBC, UA 52 /HPF [facility] Mucus Occasional [facility] Squam Epithel, UA <1 /HPF [facility] Casts 4 /LPF [facility] Specimen Source [facility] Specimen Urine Performing Organization Address City/[facility] Cent[facility] Phone Number [address] * Urine culture (03/09/2018 7:20 AM CDT) Result No growth [facility] Specimen Urine - Urine, Voided Performing Organization Address City/[facility] Phone Number [address] * Potassium (03/09/2018 6:54 AM CDT) Only the most recent of 2 results within the time period is included. Potassium 3.9Comment: Specimen 3.5 - 5.1 meq/L [facility] moderately hemolyzed [facility] Specimen Blood Performing Organization Address City/[facility] Phone Number [address] * Procalcitonin (03/09/2018 6:19 AM CDT) Procalcitonin <0.05 <0.05 ng/mL [facility] Specimen Blood Narrative Performed At SEPSIS RISK (ng/mL) [facility] Low:0.05-0.50 [facility] Intermediate: 0.51-2.00 High: >=2.01 Performing Organization Address City/[facility] Cent[facility] Phone Number [facility] [address] [place] [address] MEDICAL [facility]ENTER * ECG 12 lead (03/09/2018 3:44 AM CDT) Only the most recent of 2 results within the time period is included. Narrative Performed At Ventricular Rate 81 BPM GE MUSE Atrial Rate 81 BPM P-R Interval 112 ms QRS Duration 90 ms Q-T Interval 358 ms QTC Calculation(Bazett) 415 ms P [place] 60 degrees R [place] 58 degrees T [place] 20 degrees Normal sinus rhythm Nonspecific T wave abnormality Abnormal ECG When compared with ECG of 09-MAR-2018 03:43, No significant change was found Confirmed by MD MOFFETT J. ALBERTO ([id number]) on 03/09/2018 11:28:51 AM Procedure Note Interface, External Ris In - 03/09/2018 11:29 AM CDT Ventricular Rate 81 BPM Atrial Rate 81 BPM P-R Interval 112 ms QRS Duration 90 ms Q-T Interval 358 ms QTC Calculation(Bazett) 415 ms P [place] 60 degrees R [place] 58 degrees T [place] 20 degrees Normal sinus rhythm Nonspecific T wave abnormality Abnormal ECG When compared with ECG of 09-MAR-2018 03:43, No significant change was found Confirmed by MD MOFFETT J. ALBERTO ([id number]) on 03/09/2018 11:28:51 AM Performing Organization Address City/[facility] Phone Number [facility] * Blood gas, venous (03/09/2018 3:15 AM CDT) pH, Julio 7.33 7.32 - 7.42 [facility] pCO2, Julio 30 (L) 41 - 51 mmHg [facility] pO2, Julio 172 (H) 25 - 40 mmHg [facility] O2 Sat, Julio 99.1 (H) 40.0 - 70.0 % [facility] HCO3, Julio 15 (L) 21 - 29 mmol/L [facility] Base Excess, Julio -9.0 (L) -2.0 - 3.0 mmol/L [facility] Patient Temperature 36.7 C [facility] FIO2 21.0 % [facility] Specimen Blood Performing Organization Address [facility] Phone Number [address] * Blood culture #2 (03/09/2018 3:01 AM CDT) Only the most recent of 2 results within the time period is included. Result No growth in 5 days [facility] Specimen Blood - Arm, Left Performing Organization Address [facility] Phone Number [address] * Type and screen, automated (03/09/2018 2:49 AM CDT) ABO/RH AUTOMATED (BEAKER) O POSITIVE [facility] Ab Scrn NEGATIVE [facility] Specimen Blood Performing Organization Address [facility] Phone Number [address] * TSH/Free T4 If Indicated (03/09/2018 2:44 AM CDT) TSH 0.25 (L) 0.35 - 4.94 uIU/mL [facility] Specimen Blood Performing Organization Address [facility] Phone Number [address] * Lactic acid, venous, whole blood (03/09/2018 2:44 AM CDT) Lactate, Venous 1.7Comment: Specimen slightly 0.5 - 2.2 mmol/L [facility] hemolyzed [facility] Specimen Blood Narrative Performed At Effective 03/14/2016: Units/Reference Range Change [facility] New: 0.5-2.2 mmol/LPrevious: 5-20 mg/dL [facility] Performing Organization Address City/State/[facility] Cent[facility] Phone Number [address] * T4, free (03/09/2018 2:44 AM CDT) Free T4 1.22 0.70 - 1.48 ng/dL [facility] Specimen Blood Performing Organization Address City/[facility] Phone Number [address] * Hemoglobin A1c (03/09/2018 2:41 AM CDT) Hemoglobin A1C 11.3 (H) 4.3 - 6.1 % [facility] Specimen Blood Performing Organization Address City/[facility] Phone Number [address] * Ketone, blood (03/09/2018 2:41 AM CDT) Ketones, Blood 4.8 (H) <0.4 mmol/L [facility] Specimen Blood Performing Organization Address [facility] Phone Number [address] * Troponin I (03/09/2018 2:38 AM CDT) Troponin I <0.01 0.00 - 0.03 ng/mL [facility] Specimen Blood Narrative Performed At Troponin I (TnI) levels must be interpreted in the context of the presenting [facility] symptoms and the clinical findings. Elevated TnI levels indicate myocardial [facility] damage, but are not specific for ischemic heart disease. Elevated TnI levels are seen in patients with other cardiac conditions (including myocarditis and congestive heart failure), and slight TnI elevations occur in patients with other conditions, including sepsis, renal failure, acidosis, acute neurological disease, and persistent tachyarrhythmia. If last glucose was less than 500, may do bedside glucose instead of serum glucose. Performing Organization Address City/State/Zipcode Phone Number [facility] [address] [place] [address] [facility] [place] * Lipase (03/09/2018 2:38 AM CDT) Lipase <4 (L) 8 - 78 U/L [facility] Specimen Blood Narrative Performed At If last glucose was less than 500, may do bedside glucose instead of serum [facility] glucose. [facility] [place] Performing Organization Address City/[facility] Cent[facility] Phone Number [facility] [address] [place] [address] [facility] * Hepatic function panel (03/09/2018 2:38 AM CDT) Protein, Total 8.2 6.0 - 8.3 gm/dL [facility] Albumin 4.8 3.5 - 5.0 g/dL [facility] Total Bilirubin 0.9 0.2 - 1.2 mg/dL [facility] Bilirubin, Direct 0.4 0.1 - 0.5 mg/dL [facility] Alkaline Phosphatase 96 40 - 150 U/L [facility] AST 14 5 - 34 U/L [facility] ALT 12 6 - 55 U/L [facility] Specimen Blood Narrative Performed At If last glucose was less than 500, may do bedside glucose instead of serum [facility] glucose. [facility] [place] Performing Organization Address [facility] Centercode Phone Number [facility] [address] [place] [address] [place] after 09/08/2017 Insurance Payer Benefit Subscriber ID Type Phone Address Plan / Group BLUE CROSS/BLUE SHIELD BCBS PPO xxxxxxxxxxxx PPO [phone] [address] [place] [address] CHOICE Advance Directives For more information, please contact: [facility] [address] [place] [address] Date Inactivated Comments Code Status Date Activated 03/11/2018 4:41 PM Full Code 03/09/2018 1:27 AM This code status was determined by: Patient
[2018-09-09] MEDS ORDERED: SODIUM CHLORIDE 0.9% 1000ML 1,000 ML IV ONE (22:15)
[2018-09-09 22:38] LABS: BASOPHILS % 0.2 % (0.0-1.0); HEMATOCRIT 53.2 % (38.2-49.6); HEMOGLOBIN 17.9 g/dL (14.0-18.0); LYMPHOCYTES # (AUTO) 0.9 (1.0-3.2); LYMPHOCYTES % 4.3 % (18.0-39.1); MEAN CORPUSCULAR HEMOGLOBIN 31.2 pg (28-32); MEAN CORPUSCULAR HGB CONC 33.6 g/dL (31-35); MEAN CORPUSCULAR VOLUME 92.8 fL (81-99); MONOCYTES # (AUTO) 0.8 (0.2-0.8); MONOCYTES % 3.8 % (4.4-11.3); NEUTROPHILS # (AUTO) 19.4 (2.1-6.9); NEUTROPHILS % 91.2 % (38.7-80.0); PLATELET COUNT 301 x10e3/uL (140-360); RED BLOOD COUNT 5.73 x10e6/uL (4.3-5.7); RED CELL DISTRIBUTION WIDTH 13.3 % (11.7-14.4)
[2018-09-09 22:42] LABS: CLARITY,URINE CLEAR (CLEAR); COLOR,URINE YELLOW (YELLOW); LEUKOCYTE ESTERASE ,URINE NEGATIVE (NEGATIVE); NITRITE,URINE NEGATIVE (NEGATIVE); PROTEIN,URINE DIPSTICK TRACE (NEGATIVE)
[2018-09-09 22:43] LABS: BILIRUBIN,URINE NEGATIVE (NEGATIVE); KETONES,URINE 3+ (NEGATIVE); URINE UROBILINOGEN 0.2 mg/dL (0.2 - 1)
[2018-09-09 22:49] LABS: BACTERIA,URINE MODERATE /HPF; EPITHELIAL CELLS,URINE FEW /LPF; RBC,URINE 0-5 /HPF (0-5)
[2018-09-09 22:55] LABS: ALANINE AMINOTRANSFERASE 20 IU/L (0-55); ALBUMIN 5.2 g/dL (3.5-5.0); ALBUMIN/GLOBULIN RATIO 1.4 (0.8-2.0); ALKALINE PHOSPHATASE 117 IU/L (40-150); AMYLASE 17 U/L (25-125); ANION GAP 38.3 mmol/L (8-16); BLOOD UREA NITROGEN 24 mg/dL (7-26); BUN/CREATININE RATIO 15 (6-25); CALCIUM 10.6 mg/dL (8.4-10.2); CHLORIDE 91 mmol/L (98-107); CREATINE KINASE 394 IU/L (30-200); CREATININE, SERUM 1.65 mg/dL (0.72-1.25); EST GLOMERULAR FILTRATION RATE > 60 ML/MIN (60-); LIPASE 8 U/L (8-78); POTASSIUM 5.3 mmol/L (3.5-5.1); SODIUM 129 mmol/L (136-145)
[2018-09-09 23:00] LABS: CARBON DIOXIDE 5 mmol/L (22-29); GLUCOSE 532 mg/dL (74-118)
--- NOTE | 2018-09-09 23:00 | Diagnostic Imaging Report ---
EXAM: CHEST SINGLE (PORTABLE), AP 1 view INDICATION: Dehydration, shortness of breath COMPARISON: AP view of the chest January 26, 2018 FINDINGS: LINES/TUBES: None LUNGS: No consolidations or edema. PLEURA: No effusions or pneumothorax. HEART AND MEDIASTINUM: Normal size and contour. BONES AND SOFT TISSUES: No acute findings. IMPRESSION: No acute thoracic abnormality. Signed by: Dr. Zenobia Castillo M.D. on 09/09/2018 10:57 PM
[2018-09-09] MEDS ORDERED: SODIUM CHLORIDE 0.9% 1000ML 1,000 ML ONE (23:03)
[2018-09-09] MEDS ORDERED: SODIUM CHLORIDE 0.9% 100 ML ONE (23:04)
[2018-09-09] MEDS ORDERED: INSULIN REGULAR, HUMAN 100 UNIT/1 ML 3ML VIAL ONE (23:05)
[2018-09-09] MEDS ORDERED: INSULIN DETEMIR 100 UNIT/ML PEN SQ PRN (23:15)
[2018-09-09] MEDS ORDERED: POTASSIUM CHLORIDE 20MEQ/100ML 200 ML IV PRN (23:15)
[2018-09-09] MEDS ORDERED: MAGNESIUM SULF 1GRAM/DEXTROSE 100 ML IV PRN (23:15)
[2018-09-09] MEDS ORDERED: INSULIN REGULAR, HUMAN 3ML VL 1 UNIT in SODIUM CHLORIDE 0.9% 100 ML IV SCH ×2 (23:15)
[2018-09-09] MEDS: SODIUM CHLORIDE 0.9% 1000ML 1,000 ML IV SCH (23:16)
[2018-09-09] MEDS: CEFTRIAXONE SOD 1 GM VIAL IV SCH (23:16)
[2018-09-09] MEDS ORDERED: ACETAMINOPHEN 325 MG TAB PO PRN (23:30)
--- OUTSIDE RECORDS SUMMARY | 2018-09-09 23:32 | XMS REPORT | Clinical Summary ---
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 Role Phone Sharpless PCP Allergies No [...] Paxton Stanley MD Zatakia, Jigna Hiren, MD [facility] Diabetic ketoacidosis without coma associated [...] ms QTC Calculatio n(Bazett) 415 ms P Pablo 60 degrees R Pablo 58 degrees T Pablo 20 degrees Normal sinus rhythm Nonspecifi c [...] ms QTC Calculatio n(Bazett) 408 ms P Pablo 64 degrees R Pablo 58 degrees T Pablo 20 degrees Normal sinus rhythm Nonspecifi c [...] (H)Comment: TESTED AT 70 - 110 mg/dL [facility]SC [address] [facility] [id number] Specimen Blood Performing Organization Address City/State/Zipcode Phone Number [facility] [address] [place] [address] [facility] * CBC (Hemogram only) (03/11/2018 4:25 AM CDT) WBC 7.1 3.5 - 10.5 K/L [facility] RBC 5.15 4.63 - 6.08 M/L [facility] Hemoglobin 15.7 13.7 - 17.5 GM/DL [facility] Hematocrit 43.7 40.1 - 51.0 % [facility] MCV 84.9 79.0 - 92.2 fL [facility] MCH 30.5 25.7 - 32.2 pg [facility] MCHC 35.9 32.3 - 36.5 GM/DL [facility] RDW 11.5 (L) 11.6 - 14.4 % [facility] Platelets 214 150 - 450 K/CU MM [facility] MPV 9.4 9.4 - 12.4 fL [facility] nRBC 0 0 - 0 /100 WBC [facility] Specimen Blood Performing Organization Address City/State/Zipcode Phone Number [facility] [address] [place] [address] [facility] * Basic Metabolic Panel (03/11/2018 4:25 AM CDT) Only the most recent of 9 results within the time period is included. Sodium 134 (L) 136 - 145 meq/L [facility] Potassium 3.3 (L) 3.5 - 5.1 meq/L [facility] Chloride 97 (L) 98 - 107 meq/L [facility] CO2 24 22 - 29 meq/L [facility] BUN 11 7 - 21 mg/dL [facility] Creatinine 0.71 0.57 - 1.25 mg/dL [facility] Glucose 153 (H) 70 - 105 mg/dL [facility] Calcium 8.8 8.4 - 10.2 mg/dL [facility] EGFR 165Comment: ESTIMATED GFR IS mL/min/1.73 sq m [facility] NOT ACCURATE CREATININE [facility] CLEARANCE IN PREDICTING GLOMERULAR FILTRATION RATE. ESTIMATED GFR IS NOT APPLICABLE FOR DIALYSIS PATIENTS. Specimen Blood Performing Organization Address City/State/Zipcode Phone Number [facility] [address] [place] [address] MEDICAL CENTER * TRANSFUSION SERVICE REPORT - SCAN (03/10/2018 5:40 PM CDT) Narrative Performed At * RESPIRATORY PANEL [facility] (03/10/2018 9:03 AM CDT) Human Metapneumovirus Not detected Not detected, [facility] Inconclusive [facility] Rhinovirus Not detected Not detected, [facility] Inconclusive [facility] Influenza A Not detected Not detected, [facility] Inconclusive [facility] Influenza A subtype H1 Not detected Not detected, [facility] Inconclusive [facility] Influenza A Subtype H3 Not detected Not detected, [facility] Inconclusive [facility] Influenza A Subtype Not detected Not detected, [facility] H1-[address] [facility] Influenza B Not detected Not detected, [facility] Inconclusive [facility] Respiratory Syncytial Not detected Not detected, [facility] Virus Inconclusive [facility] Parainfluenza Virus 1 Not detected Not detected, [facility] Inconclusive [facility] Parainfluenza Virus 2 Not detected Not detected, [facility] Inconclusive [facility] Parainfluenza virus 3 Not detected Not detected, [facility] Inconclusive [facility] Parainfluenza Virus 4 Not detected Not detected, [facility] Inconclusive [facility] Adenovirus Not detected Not detected, [facility] Inconclusive [facility] Coronavirus 229E Not detected Not detected, [facility] Inconclusive [facility] Coronavirus HKU1 Not detected Not detected, [facility] Inconclusive [facility] Coronavirus NL63 Not detected Not detected, [facility] Coronavirus OC43 Not detected Not detected, [facility] [place] [place] Bordetella Pertussis Not detected Not detected, [facility] Chlamydophila Pneumoniae Not detected Not detected, [facility] Mycoplasma Pneumoniae Not detected Not detected, [facility] MED[facility] CENTER Specimen Nasopharyngeal - Nasopharyngeal Swab Performing Organization Address City/State/Zipcode Phone Number [facility] [address] [place] [address] MEDICAL CENTER * CBC with platelet count + automated diff (03/10/2018 9:02 AM CDT) Only the most recent of 2 results within the time period is included. WBC 7.5 3.5 - 10.5 K/L [facility] RBC 5.14 4.63 - 6.08 M/L [facility] Hemoglobin 15.6 13.7 - 17.5 GM/DL [facility] Hematocrit 44.5 40.1 - 51.0 % [facility] MCV 86.6 79.0 - 92.2 fL [facility] MCH 30.4 25.7 - 32.2 pg [facility] MCHC 35.1 32.3 - 36.5 GM/DL [facility] RDW 11.8 11.6 - 14.4 % [facility] Platelets 229 150 - 450 K/CU MM [facility] MPV 9.4 9.4 - 12.4 fL [facility] nRBC 0 0 - 0 /100 WBC [facility] % Neutros 71 % [facility] % Lymphs 23 % [facility] % Monos 6 % [facility] % Eos 0 % [facility] % Baso 0 % [facility] # Neutros 5.34 1.78 - 5.38 K/L [facility] # Lymphs 1.73 1.32 - 3.57 K/L [facility] # Monos 0.43 0.30 - 0.82 K/L [facility] # Eos 0.01 (L) 0.04 - 0.54 K/L [facility] # Baso 0.01 0.01 - 0.08 K/L [facility] Immature 0 0 - 1 % [facility] Granulocytes-Relative [facility] Specimen Blood Performing Organization Address City/State/Zipcode Phone Number [facility] [address] [place] [address] MEDICAL CENTER * XR chest 1 view portable / bedside (03/10/2018 8:51 AM CDT) Narrative Performed At FINAL REPORT [facility] INDICATION: assess for acute process COMPARISON: None. TECHNIQUE: Chest radiograph, single view, portable technique. FINDINGS / IMPRESSION: There is no evidence of pneumonia or pulmonary edema. Cardiac and mediastinal contours are unremarkable. No pleural effusion or pneumothorax is demonstrated. Osseous structures are unremarkable. Signed: Erasmo Montgomery MD Report Verified Date/Time:03/10/2018 09:41:23 Reading Location: [facility] Radiology Reading Room Procedure Note Interface, External [...] Report Verified Date/Time: 03/10/2018 09:41:23 Reading Location: [facility] Radiology Reading Room Performing Organization Address City/State/Zipcode Phone Number [facility] * Phosphorus (03/10/2018 4:35 AM CDT) Only the most recent of 7 results within the time period is included. Phosphorus 2.4 2.3 - 4.7 mg/dL [facility] Specimen Blood Performing Organization Address [facility] [place] [address] [phone] * Magnesium (03/10/2018 4:35 AM CDT) Only the most recent of 2 results within the time period is included. Magnesium 1.9 1.6 - 2.6 mg/dL [facility] Specimen Blood Performing Organization Address [facility] Mexicocoak Phone Number [place] [phone] * Glucose, serum (03/09/2018 8:32 AM CDT) Only the most recent of 2 results within the time period is included. Glucose 145 (H) 70 - 105 mg/dL [facility] Specimen Blood Narrative Performed At If last glucose was less than 500, may do bedside glucose instead of serum [facility] glucose. [facility] Performing Organization Address [facility] [place] [address] [phone] * Urinalysis w/ Microscopic (03/09/2018 7:20 AM CDT) Color, UA Yellow [facility] Clarity, UA Clear [facility] Specific Lynn, UA 1.024 1.001 - 1.035 [facility] pH, UA 6.0 5.0 - 8.0 [facility] Protein, UA 30 mg/dL (A) Negative [facility] Glucose, UA >1000 mg/dL (A) Negative [facility] Ketones, UA >150 mg/dL (A) Negative [facility] Bilirubin, UA Negative Negative [facility] Blood, UA Negative Negative [facility] Nitrite, UA Negative Negative [facility] Leukocytes, UA Moderate (A) Negative [facility] Urobilinogen, UA 0.2 0.2 - 1.0 mg/dL [facility] RBC, UA <1 /HPF [facility] WBC, UA 52 /HPF [facility] Mucus Occasional [facility] Squam Epithel, UA <1 /HPF [facility] Casts 4 /LPF [facility] Specimen Source [facility] Specimen Urine Performing Organization Address City/[facility] Mexicocode Phone Number [address] * Urine culture (03/09/2018 7:20 AM CDT) Result No growth [facility] Specimen Urine - Urine, Voided Performing Organization Address City/[facility] Phone Number [address] * Potassium (03/09/2018 6:54 AM CDT) Only the most recent of 2 results within the time period is included. Potassium 3.9Comment: Specimen 3.5 - 5.1 meq/L [facility] moderately hemolyzed [facility] Specimen Blood Performing Organization Address City/[facility] Mex[facility]ode Phone Number [address] * Procalcitonin (03/09/2018 6:19 AM CDT) Procalcitonin <0.05 <0.05 ng/mL [facility] Specimen Blood Narrative Performed At SEPSIS RISK (ng/mL) [facility] Low:0.05-0.50 [facility] Intermediate: 0.51-2.00 High: >=2.01 Performing Organization Address City/[facility] Mex[facility]ode Phone Number [facility] [address] [place] [address] MEDICAL CENTER * ECG 12 lead (03/09/2018 3:44 AM CDT) Only the most recent of 2 results within the time period is included. Narrative Performed At Ventricular Rate 81 BPM GE MUSE Atrial Rate 81 BPM P-R Interval 112 ms QRS Duration 90 ms Q-T Interval 358 ms QTC Calculation(Bazett) 415 ms P Pablo 60 degrees R Pablo 58 degrees T Pablo 20 degrees Normal sinus rhythm Nonspecific T [...] 358 ms QTC Calculation(Bazett) 415 ms P Pablo 60 degrees R Pablo 58 degrees T Pablo 20 degrees Normal sinus rhythm Nonspecific T wave abnormality Abnormal ECG When compared with ECG of 09-MAR-2018 03:43, No significant change was found Confirmed by MD MOFFETT J. ALBERTO ([id number]) on 03/09/2018 11:28:51 AM Performing Organization Address City/[facility] Phone Number [email or web address] MUSE * Blood gas, venous (03/09/2018 3:15 AM CDT) pH, Julio 7.33 7.32 - 7.42 [facility] pCO2, Julio 30 (L) 41 - 51 mmHg [facility] pO2, Julio 172 (H) 25 - 40 mmHg [facility] O2 Sat, Julio 99.1 (H) 40.0 - 70.0 % [facility] HCO3, Julio 15 (L) 21 - 29 mmol/L [facility] Base Excess, Julio -9.0 (L) -2.0 - 3.0 mmol/L [facility] Patient Temperature 36.7 C [facility] FIO2 21.0 % [facility] Specimen Blood Performing Organization Address [facility] Phone Number [address] * Blood culture #2 (03/09/2018 3:01 AM CDT) Only the most recent of 2 results within the time period is included. Result No growth in 5 days [facility] Specimen Blood - Arm, Left Performing Organization Address [facility] Phone Number [address] * Type and screen, automated (03/09/2018 2:49 AM CDT) ABO/RH AUTOMATED (BEAKER) O POSITIVE [facility] Ab Scrn NEGATIVE [facility] Specimen Blood Performing Organization Address [facility] Phone Number [address] * TSH/Free T4 If Indicated (03/09/2018 2:44 AM CDT) TSH 0.25 (L) 0.35 - 4.94 uIU/mL [facility] Specimen Blood Performing Organization Address [facility] Phone Number [address] * Lactic acid, venous, whole blood (03/09/2018 2:44 AM CDT) Lactate, Venous 1.7Comment: Specimen slightly 0.5 - 2.2 mmol/L [facility] hemolyzed [facility] Specimen Blood Narrative Performed At Effective 03/14/2016: Units/Reference Range Change [facility] New: 0.5-2.2 mmol/LPrevious: 5-20 mg/dL [facility] Performing Organization Address City/State/[facility] Mex[facility]ode Phone Number [address] * T4, free (03/09/2018 2:44 AM CDT) Free T4 1.22 0.70 - 1.48 ng/dL [facility] Specimen Blood Performing Organization Address City/[facility] Mex[facility] Phone Number [address] * Hemoglobin A1c (03/09/2018 2:41 AM CDT) Hemoglobin A1C 11.3 (H) 4.3 - 6.1 % [facility] Specimen Blood Performing Organization Address City/[facility] Mex[facility]ode Phone Number [address] * Ketone, blood (03/09/2018 2:41 AM CDT) Ketones, Blood 4.8 (H) <0.4 mmol/L [facility] Specimen Blood Performing Organization Address [facility] Phone Number [address] * Troponin I (03/09/2018 2:38 AM CDT) Troponin I <0.01 0.00 - 0.03 ng/mL [facility] Specimen Blood Narrative Performed At Troponin I (TnI) levels must be interpreted in the context of the presenting [facility] symptoms and the clinical findings. Elevated TnI levels indicate myocardial [facility] damage, but are not specific for [...] glucose. Performing Organization Address City/State/Zipcode Phone Number [facility] [address] [place] [address] [place] [place] * Lipase (03/09/2018 2:38 AM CDT) Lipase <4 (L) 8 - 78 U/L [facility] Specimen Blood Narrative Performed At If last glucose was less than 500, may do bedside glucose instead of serum [facility] glucose. [facility] Performing Organization Address City/[facility] Mex[facility] Phone Number [facility] [address] [place] [address] [facility] * Hepatic function panel (03/09/2018 2:38 AM CDT) Protein, Total 8.2 6.0 - 8.3 gm/dL [facility] Albumin 4.8 3.5 - 5.0 g/dL [facility] Total Bilirubin 0.9 0.2 - 1.2 mg/dL [facility] Bilirubin, Direct 0.4 0.1 - 0.5 mg/dL [facility] Alkaline Phosphatase 96 40 - 150 U/L [facility] AST 14 5 - 34 U/L [facility] ALT 12 6 - 55 U/L [facility] Specimen Blood Narrative Performed At If last glucose was less than 500, may do bedside glucose instead of serum [facility] glucose. [facility] Performing Organization Address [facility] Mex[facility]ode Phone Number [facility] [address] [place] [address] [place] after 09/08/2017 Insurance Payer Benefit Subscriber ID Type Phone Address Plan / Group BLUE CROSS/BLUE SHIELD BCBS PPO xxxxxxxxxxxx PPO [phone] [address] [place] [address] CHOICE Advance Directives For more information, please contact: [facility] [address] [place] [address] Date Inactivated Comments Code Status Date Activated 03/11/2018 4:41 PM Full Code 03/09/2018 1:27 AM This code status was determined by: Patient
[2018-09-09] MEDS ORDERED: INSULIN REGULAR, HUMAN 3ML VL 100 UNIT in SODIUM CHLORIDE 0.9% 99 ML IV SCH ×2 (23:45)
[2018-09-10] VITALS (81 sets, daily range): BP systolic 106–158; BP diastolic 50–99
[2018-09-10 02:41] LABS: ANION GAP 24.4 mmol/L (8-16); BLOOD UREA NITROGEN 18 mg/dL (7-26); BUN/CREATININE RATIO 15 (6-25); CHLORIDE 104 mmol/L (98-107); CREATININE, SERUM 1.21 mg/dL (0.72-1.25); EST GLOMERULAR FILTRATION RATE > 60 ML/MIN (60-); GLUCOSE 244 mg/dL (74-118); MAGNESIUM 2.3 MG/DL (1.3-2.1); POTASSIUM 4.4 mmol/L (3.5-5.1); SODIUM 131 mmol/L (136-145)
[2018-09-10 02:54] LABS: CARBON DIOXIDE 7 mmol/L (22-29)
[2018-09-10] MEDS: SODIUM CHLORIDE 0.9% 1000ML 1,000 ML IV SCH ×2 (03:15→20:04)
[2018-09-10 06:21] LABS: BASOPHILS % 0.2 % (0.0-1.0); EOSINOPHILS % 0.1 % (0.0-6.0); LYMPHOCYTES # (AUTO) 2.1 (1.0-3.2); LYMPHOCYTES % 12.8 % (18.0-39.1); MEAN CORPUSCULAR HEMOGLOBIN 31.1 pg (28-32); MEAN CORPUSCULAR HGB CONC 34.9 g/dL (31-35); MONOCYTES # (AUTO) 1.2 (0.2-0.8); MONOCYTES % 7.6 % (4.4-11.3); NEUTROPHILS # (AUTO) 12.6 (2.1-6.9); PLATELET COUNT 243 x10e3/uL (140-360); RED BLOOD COUNT 4.83 x10e6/uL (4.3-5.7); RED CELL DISTRIBUTION WIDTH 12.8 % (11.7-14.4)
[2018-09-10 06:57] LABS: BLOOD UREA NITROGEN 14 mg/dL (7-26); BUN/CREATININE RATIO 14 (6-25); CALCIUM 8.8 mg/dL (8.4-10.2); CARBON DIOXIDE 14 mmol/L (22-29); CHLORIDE 105 mmol/L (98-107); EST GLOMERULAR FILTRATION RATE > 60 ML/MIN (60-); GLUCOSE 135 mg/dL (74-118); SODIUM 130 mmol/L (136-145)
[2018-09-10] MEDS: DEXTROSE 5%/0.45% SOD CHL 1,000 ML IV SCH (09:32)
[2018-09-10 11:17] LABS: ANION GAP 12.4 mmol/L (8-16); BLOOD UREA NITROGEN 11 mg/dL (7-26); BUN/CREATININE RATIO 11 (6-25); CALCIUM 9.1 mg/dL (8.4-10.2); CARBON DIOXIDE 21 mmol/L (22-29); CHLORIDE 102 mmol/L (98-107); CREATININE, SERUM 1.01 mg/dL (0.72-1.25); EST GLOMERULAR FILTRATION RATE > 60 ML/MIN (60-); GLUCOSE 72 mg/dL (74-118); MAGNESIUM 2.1 MG/DL (1.3-2.1); POTASSIUM 3.4 mmol/L (3.5-5.1); SODIUM 132 mmol/L (136-145)
[2018-09-10 16:15] LABS: ANION GAP 12.5 mmol/L (8-16); BLOOD UREA NITROGEN 10 mg/dL (7-26); BUN/CREATININE RATIO 13 (6-25); CALCIUM 8.7 mg/dL (8.4-10.2); CARBON DIOXIDE 19 mmol/L (22-29); CHLORIDE 104 mmol/L (98-107); CREATININE, SERUM 0.76 mg/dL (0.72-1.25); EST GLOMERULAR FILTRATION RATE > 60 ML/MIN (60-); GLUCOSE 66 mg/dL (74-118); POTASSIUM 3.5 mmol/L (3.5-5.1); SODIUM 132 mmol/L (136-145)
[2018-09-10] MEDS: INSULIN REGULAR, HUMAN 100 UNIT/1 ML 3ML VIAL SQ SCH ×2 (16:30→21:47)
[2018-09-10] MEDS ORDERED: DEXTROSE 50% SYRINGE 50 ML IV PRN (16:30)
[2018-09-10] MEDS: ONDANSETRON HCL INJ 2 MG/ML VIAL IV PRN (19:27)
[2018-09-10 19:51] LABS: ANION GAP 16.2 mmol/L (8-16); BLOOD UREA NITROGEN 10 mg/dL (7-26); BUN/CREATININE RATIO 12 (6-25); CALCIUM 8.8 mg/dL (8.4-10.2); CARBON DIOXIDE 20 mmol/L (22-29); CHLORIDE 100 mmol/L (98-107); CREATININE, SERUM 0.83 mg/dL (0.72-1.25); EST GLOMERULAR FILTRATION RATE > 60 ML/MIN (60-); GLUCOSE 118 mg/dL (74-118); MAGNESIUM 1.8 MG/DL (1.3-2.1); POTASSIUM 3.2 mmol/L (3.5-5.1); SODIUM 133 mmol/L (136-145)
[2018-09-10] MEDS: INSULIN DETEMIR 100 UNIT/ML PEN SQ SCH (21:47)
[2018-09-11] VITALS (13 sets, daily range): BP systolic 129–142; BP diastolic 67–94
[2018-09-11] MEDS: CEFTRIAXONE SOD 1 GM VIAL IV SCH ×2 (00:13→23:11)
[2018-09-11 04:56] LABS: BASOPHILS % 0.2 % (0.0-1.0); EOSINOPHILS % 0.2 % (0.0-6.0); LYMPHOCYTES # (AUTO) 2.1 (1.0-3.2); MEAN CORPUSCULAR HEMOGLOBIN 31.4 pg (28-32); MEAN CORPUSCULAR HGB CONC 36.6 g/dL (31-35); MONOCYTES # (AUTO) 0.8 (0.2-0.8); MONOCYTES % 8.6 % (4.4-11.3); NEUTROPHILS # (AUTO) 6.7 (2.1-6.9); NEUTROPHILS % 68.8 % (38.7-80.0); PLATELET COUNT 226 x10e3/uL (140-360); RED BLOOD COUNT 4.78 x10e6/uL (4.3-5.7); RED CELL DISTRIBUTION WIDTH 12.4 % (11.7-14.4)
[2018-09-11 05:00] LABS: MEAN CORPUSCULAR VOLUME 85.8 fL (81-99)
[2018-09-11 05:16] LABS: BLOOD UREA NITROGEN 9 mg/dL (7-26); BUN/CREATININE RATIO 11 (6-25); CALCIUM 8.4 mg/dL (8.4-10.2); CARBON DIOXIDE 23 mmol/L (22-29); CHLORIDE 97 mmol/L (98-107); CREATININE, SERUM 0.79 mg/dL (0.72-1.25); EST GLOMERULAR FILTRATION RATE > 60 ML/MIN (60-); GLUCOSE 167 mg/dL (74-118); MAGNESIUM 1.7 MG/DL (1.3-2.1); SODIUM 133 mmol/L (136-145)
[2018-09-11] MEDS: SODIUM CHLORIDE 0.9% 1000ML 1,000 ML IV SCH ×2 (06:34→20:48)
[2018-09-11] MEDS ORDERED: HYDRALAZINE HCL 20 MG/ML VIAL IV PRN (06:45)
[2018-09-11] MEDS ORDERED: ACETAMINOPHEN 325 MG TAB PO PRN (06:45)
[2018-09-11] MEDS ORDERED: POTASSIUM CHLORIDE 20MEQ/100ML 200 ML ONE (06:52)
[2018-09-11] MEDS ORDERED: MAGNESIUM SULF 1GRAM/DEXTROSE 100 ML IV ONE (06:52)
[2018-09-11] MEDS: INSULIN DETEMIR 100 UNIT/ML PEN SQ SCH ×2 (08:32→21:05)
[2018-09-11] MEDS: INSULIN REGULAR, HUMAN 100 UNIT/1 ML 3ML VIAL SQ SCH ×5 (08:32→21:00)
[2018-09-11] MEDS: ONDANSETRON HCL INJ 2 MG/ML VIAL IV PRN ×4 (09:01→23:11)
[2018-09-11] MEDS: FAMOTIDINE 20 MG/2 ML VIAL IV SCH ×2 (09:01→18:23)
[2018-09-12] VITALS (8 sets, daily range): BP systolic 118–142; BP diastolic 59–89
[2018-09-12 05:25] LABS: BASOPHILS % 0.4 % (0.0-1.0); EOSINOPHILS % 0.4 % (0.0-6.0); HEMATOCRIT 40.7 % (38.2-49.6); HEMOGLOBIN 14.7 g/dL (14.0-18.0); LYMPHOCYTES # (AUTO) 2.2 (1.0-3.2); LYMPHOCYTES % 31.7 % (18.0-39.1); MEAN CORPUSCULAR HEMOGLOBIN 31.1 pg (28-32); MEAN CORPUSCULAR HGB CONC 36.1 g/dL (31-35); MONOCYTES # (AUTO) 0.7 (0.2-0.8); MONOCYTES % 9.5 % (4.4-11.3); NEUTROPHILS % 57.7 % (38.7-80.0); PLATELET COUNT 207 x10e3/uL (140-360); RED BLOOD COUNT 4.73 x10e6/uL (4.3-5.7); RED CELL DISTRIBUTION WIDTH 12.2 % (11.7-14.4)
[2018-09-12 05:43] LABS: ANION GAP 12.7 mmol/L (8-16); BLOOD UREA NITROGEN 9 mg/dL (7-26); BUN/CREATININE RATIO 13 (6-25); CALCIUM 8.6 mg/dL (8.4-10.2); CARBON DIOXIDE 32 mmol/L (22-29); CHLORIDE 97 mmol/L (98-107); CREATININE, SERUM 0.72 mg/dL (0.72-1.25); EST GLOMERULAR FILTRATION RATE > 60 ML/MIN (60-); GLUCOSE 110 mg/dL (74-118); MAGNESIUM 2.2 MG/DL (1.3-2.1); SODIUM 139 mmol/L (136-145)
[2018-09-12 05:57] LABS: POTASSIUM 2.7 mmol/L (3.5-5.1)
[2018-09-12] MEDS ORDERED: POTASSIUM CHLORIDE 20MEQ/100ML 200 ML IV PRN (06:15)
[2018-09-12] MEDS: INSULIN REGULAR, HUMAN 100 UNIT/1 ML 3ML VIAL SQ SCH ×4 (07:30→21:00)
[2018-09-12] MEDS ORDERED: POTASSIUM CHLORIDE 20 MEQ TAB CR PO PRN (08:00)
[2018-09-12] MEDS ORDERED: POTASSIUM CHLORIDE 20 MEQ TAB CR PO NR ×3 (08:00→17:45)
[2018-09-12] MEDS: FAMOTIDINE 20 MG/2 ML VIAL IV SCH ×2 (08:34→17:00)
[2018-09-12] MEDS: INSULIN DETEMIR 100 UNIT/ML PEN SQ SCH ×2 (08:37→21:00)
[2018-09-12] MEDS: ONDANSETRON HCL INJ 2 MG/ML VIAL IV PRN ×2 (09:28→20:42)
[2018-09-12] MEDS: SODIUM CHLORIDE 0.9% 1000ML 1,000 ML IV SCH (12:06)
[2018-09-12 17:06] LABS: ANION GAP 10.1 mmol/L (8-16); BLOOD UREA NITROGEN 8 mg/dL (7-26); BUN/CREATININE RATIO 14 (6-25); CALCIUM 8.7 mg/dL (8.4-10.2); CARBON DIOXIDE 29 mmol/L (22-29); CHLORIDE 99 mmol/L (98-107); CREATININE, SERUM 0.58 mg/dL (0.72-1.25); EST GLOMERULAR FILTRATION RATE > 60 ML/MIN (60-); GLUCOSE 149 mg/dL (74-118); POTASSIUM 3.1 mmol/L (3.5-5.1); SODIUM 135 mmol/L (136-145)
[2018-09-13] VITALS: BP 114/69
[2018-09-13] MEDS: CEFTRIAXONE SOD 1 GM VIAL IV SCH (00:09)
[2018-09-13 04:00] VITALS: BP 149/91
[2018-09-13] MEDS: ONDANSETRON HCL INJ 2 MG/ML VIAL IV PRN (04:11)
[2018-09-13] MEDS: SODIUM CHLORIDE 0.9% 1000ML 1,000 ML IV SCH (04:11)
[2018-09-13 05:17] LABS: BASOPHILS % 0.2 % (0.0-1.0); EOSINOPHILS % 0.6 % (0.0-6.0); HEMATOCRIT 40.8 % (38.2-49.6); HEMOGLOBIN 14.7 g/dL (14.0-18.0); LYMPHOCYTES # (AUTO) 1.4 (1.0-3.2); LYMPHOCYTES % 27.5 % (18.0-39.1); MEAN CORPUSCULAR HEMOGLOBIN 31.2 pg (28-32); MEAN CORPUSCULAR VOLUME 86.6 fL (81-99); MONOCYTES # (AUTO) 0.3 (0.2-0.8); MONOCYTES % 6.5 % (4.4-11.3); NEUTROPHILS # (AUTO) 3.3 (2.1-6.9); PLATELET COUNT 177 x10e3/uL (140-360); RED BLOOD COUNT 4.71 x10e6/uL (4.3-5.7); RED CELL DISTRIBUTION WIDTH 12.2 % (11.7-14.4)
[2018-09-13 05:38] LABS: ANION GAP 17.7 mmol/L (8-16); BLOOD UREA NITROGEN 10 mg/dL (7-26); BUN/CREATININE RATIO 14 (6-25); CALCIUM 8.7 mg/dL (8.4-10.2); CARBON DIOXIDE 25 mmol/L (22-29); CHLORIDE 97 mmol/L (98-107); EST GLOMERULAR FILTRATION RATE > 60 ML/MIN (60-); GLUCOSE 272 mg/dL (74-118); MAGNESIUM 2.1 MG/DL (1.3-2.1); POTASSIUM 3.7 mmol/L (3.5-5.1); SODIUM 136 mmol/L (136-145)
[2018-09-13] MEDS: INSULIN REGULAR, HUMAN 100 UNIT/1 ML 3ML VIAL SQ SCH (08:00)
[2018-09-13 08:19] VITALS: BP 123/64
[2018-09-13] MEDS: FAMOTIDINE 20 MG/2 ML VIAL IV SCH (08:35)
[2018-09-13] MEDS: INSULIN DETEMIR 100 UNIT/ML PEN SQ SCH (09:32)
[2018-09-13 09:55] VITALS: BP 123/64
--- NOTE | 2018-09-14 06:07 | Discharge Summary ---
ADMISSION DIAGNOSES 1. Below knee amputation. 2. Urinary tract infection with sepsis. 3. Dehydration. 4. Gastroenteritis. DISCHARGE DIAGNOSES 1. , rule out urinary tract function. 2. Hypokalemia. 3. Hyponatremia. 4. Hypercalcemia. 5. Hypomagnesemia. HISTORY: The patient's only history is type 2 diabetes. SURGICAL HISTORY: Patient denies surgical history. FAMILY HISTORY: Patient denies family history of stroke, cancer, and diabetes. SOCIAL HISTORY: Patient denies alcohol, tobacco, and illicit drug use. HOSPITAL COURSE: A 23-year-old male with type 2 diabetes, admitted with 24 hours of nausea and vomiting. On admission, patient's WBC was 21.22, sodium of 129, potassium of 5.3, and anion gap of 38.3. A1c of 9.6. Chest x-ray on admission was negative. UA was positive for blood, ketones, bacteria, and WBC. Urine culture came back negative. Patient was initially on an insulin drip and then weaned off to Levemir and sliding scale insulin. On the day of discharge, WBC is 5.05, sodium is 136, potassium is 3.7, and sugar is 252. Patient is feeling much better, tolerating 100% of his meals, and very adamant about going home. He will follow up with primary care to adjust his and we will keep very close eye on his diabetes and eating habits. Patient understands discharge instructions and agrees to plan. Vital signs stable. Patient afebrile. Dictated by: Kizzy Becerril NP Job#: [id number] DION
== END 2018-09-13 10:43 | disposition home or self-care (01) | DRG 871 ==
LOC: ER 21:07 → ERHOLD 23:28 → ICU 23:44 → MED/SURG 09-11 09:53
PROVIDERS: ADMIT Internal Medicine; ATTEND Internal Medicine
DX: A41.9 Sepsis, unspecified organism (principal); E10.10 Type 1 diabetes mellitus with ketoacidosis without coma; E87.1 Hypo-osmolality and hyponatremia; Z79.4 Long term (current) use of insulin; E86.0 Dehydration; K52.9 Noninfective gastroenteritis and colitis, unspecified; E87.6 Hypokalemia; E83.42 Hypomagnesemia; E83.52 Hypercalcemia
CPT/HCPCS: 36415; 71045; 80048; 80053; 81001; 82150; 82550; 82553; 82948; 83036; 83690; 83735; 84484; 85025; 87086; 93005; 96367; 96372; 96376; 99284; J0696; J2405; J3475; J3480; J7030; J7050

== ENCOUNTER 2019-01-30 14:31 | Inpatient (IN) | payer BC, OTHER ==
[~2019-01-30] VITALS: Ht 180.3 cm; Wt 64.0 kg
--- OUTSIDE RECORDS SUMMARY | 2019-01-30 14:34 | XMS REPORT | Clinical Summary ---
Author Author DANA [facility] Address Unknown Phone Unavailable Care Team Providers Care Science Job Titles Name Role Phone Sharpless PCP Allergies No [...] 03/09/2018 Orders Only General Internal Medicine after 01/29/2018 Family History Medical History Relation Name Comments [...] ms QTC Calculatio n(Bazett) 415 ms P [place] 60 degrees R [place] 58 degrees T [place] 20 degrees Normal sinus rhythm Nonspecifi c [...] ms QTC Calculatio n(Bazett) 408 ms P [place] 64 degrees R [place] 58 degrees T [place] 20 degrees Normal sinus rhythm Nonspecifi c [...] Routine 03/09/2018 2:44 AM CDT LACTIC ACID, VENOUS Routine 03/09/2018 2:44 AM CDT CBC W/PLT COUNT & [...] METER Routine 03/09/2018 1:23 AM CDT after 01/29/2018 Results * RHYTHM STRIP - SCAN (03/13/2018 10:31 AM CDT) Narrative Performed At * POC-Glucose meter (03/11/2018 2:21 PM CDT) Only the most recent of 24 results within the time period is included. POC-Glucose Meter 205 (H)Comment: TESTED AT 70 - 110 mg/dL [facility] [id number] [facility] [id number] Specimen Blood Performing Organization Address City/State/Zipcode Phone Number [facility] [address] [place] [address] [facility] * CBC (Hemogram only) (03/11/2018 4:25 AM CDT) WBC 7.1 3.5 - 10.5 K/L [facility] RBC 5.15 4.63 - 6.08 M/L [facility] Hemoglobin 15.7 13.7 - 17.5 GM/DL [facility] Hematocrit 43.7 40.1 - 51.0 % [facility] MCV 84.9 79.0 - 92.2 fL [facility] MCH 30.5 25.7 - 32.2 pg [facility] MCHC 35.9 32.3 - 36.5 GM/DL [facility] RDW 11.5 (L) 11.6 - 14.4 % [facility] Platelets 214 150 - 450 K/CU MM [facility] MPV 9.4 9.4 - 12.4 fL [facility] nRBC 0 0 - 0 /100 WBC [facility] Specimen Blood Performing Organization Address City/State/Zipcode Phone Number [facility] [address] [place] [address] [facility] * Basic Metabolic Panel (03/11/2018 4:25 AM CDT) Only the most recent of 9 results within the time period is included. Sodium 134 (L) 136 - 145 meq/L [facility] Potassium 3.3 (L) 3.5 - 5.1 meq/L [facility] Chloride 97 (L) 98 - 107 meq/L [facility] CO2 24 22 - 29 meq/L [facility] BUN 11 7 - 21 mg/dL [facility] Creatinine 0.71 0.57 - 1.25 mg/dL [facility] Glucose 153 (H) 70 - 105 mg/dL [facility] Calcium 8.8 8.4 - 10.2 mg/dL [facility] EGFR 165Comment: ESTIMATED GFR IS mL/min/1.[address] [facility] NOT ACCURATE CREATININE [facility] CLEARANCE IN PREDICTING GLOMERULAR FILTRATION RATE. ESTIMATED GFR IS NOT APPLICABLE FOR DIALYSIS PATIENTS. Specimen Blood Performing Organization Address City/State/Zipcode Phone Number [facility] [address] [place] [address] [facility] * TRANSFUSION SERVICE REPORT - SCAN (03/10/2018 5:40 PM CDT) Narrative Performed At * RESPIRATORY PANEL [facility] (03/10/2018 9:03 AM CDT) Human Metapneumovirus Not detected Not detected, [facility] Inconclusive [facility] Rhinovirus Not detected Not detected, [facility] Inconclusive [facility] Influenza A Not detected Not detected, [facility] Inconclusive [facility] Influenza A subtype H1 Not detected Not detected, [facility] Inconclusive [facility] Influenza A Subtype H3 Not detected Not detected, [facility] Inconclusive [facility] Influenza A Subtype Not detected Not detected, [facility] H1-2009 Inconclusive [facility] Influenza B Not detected Not detected, [facility] Inconclusive [facility] Respiratory Syncytial Not detected Not detected, [facility] Virus Inconclusive [facility] Parainfluenza Virus 1 Not detected Not detected, [facility] Inconclusive [facility] Parainfluenza Virus 2 Not detected Not detected, [facility] Inconclusive [facility] Parainfluenza virus 3 Not detected Not detected, [facility] Inconclusive [facility] Parainfluenza Virus 4 Not detected Not detected, [facility] Inconclusive [facility] Adenovirus Not detected Not detected, [facility] Inconclusive [facility] Coronavirus 229E Not detected Not detected, [facility] Inconclusive [facility] Coronavirus HKU1 Not detected Not detected, [facility] Inconclusive [facility] Coronavirus NL63 Not detected Not detected, [facility] Coronavirus OC43 Not detected Not detected, [facility] Inconclusive [facility] Bordetella Pertussis Not detected Not detected, [facility] Inconclusive [facility] Chlamydophila Pneumoniae Not detected Not detected, [facility] Inconclusive [facility] Mycoplasma Pneumoniae Not detected Not detected, [facility] C[facility] Specimen Nasopharyngeal - Nasopharyngeal Swab Performing Organization Address City/State/Zipcode Phone Number [facility] [address] [place] [address] [facility] * CBC with platelet count + automated diff (03/10/2018 9:02 AM CDT) Only the most recent of 2 results within the time period is included. WBC 7.5 3.5 - 10.5 K/L [facility] RBC 5.14 4.63 - 6.08 M/L [facility] Hemoglobin 15.6 13.7 - 17.5 GM/DL [facility] Hematocrit 44.5 40.1 - 51.0 % [facility] MCV 86.6 79.0 - 92.2 fL [facility] MCH 30.4 25.7 - 32.2 pg [facility] MCHC 35.1 32.3 - 36.5 GM/DL [facility] RDW 11.8 11.6 - 14.4 % [facility] Platelets 229 150 - 450 K/CU MM [facility] MPV 9.4 9.4 - 12.4 fL [facility] nRBC 0 0 - 0 /100 WBC [facility] % Neutros 71 % [facility] % Lymphs 23 % [facility] % Monos 6 % [facility] % Eos 0 % [facility] % Baso 0 % [facility] # Neutros 5.34 1.78 - 5.38 K/L [facility] # Lymphs 1.73 1.32 - 3.57 K/L [facility] # Monos 0.43 0.30 - 0.82 K/L [facility] # Eos 0.01 (L) 0.04 - 0.54 K/L [facility] # Baso 0.01 0.01 - 0.08 K/L [facility] Immature 0 0 - 1 % [facility] Granulocytes-Relative [facility] Specimen Blood Performing Organization Address City/State/Zipcode Phone Number [facility] [address] [place] [address] [facility] * XR chest 1 view portable / bedside (03/10/2018 8:51 AM CDT) Narrative Performed At FINAL REPORT [place] [employer] INDICATION: assess for acute process COMPARISON: None. TECHNIQUE: Chest radiograph, single view, portable technique. FINDINGS / IMPRESSION: There is no evidence of pneumonia or pulmonary edema. Cardiac and mediastinal contours are unremarkable. No pleural effusion or pneumothorax is demonstrated. Osseous structures are unremarkable. Signed: Erasmo Montgomery MD Report Verified Date/Time:03/10/2018 09:41:23 Reading Location: [facility] Radiology Reading Room Procedure Note Interface, External [...] Report Verified Date/Time: 03/10/2018 09:41:23 Reading Location: [facility] Radiology Reading Room Performing Organization Address City/State/Zipcode Phone Number [facility] * Phosphorus (03/10/2018 4:35 AM CDT) Only the most recent of 7 results within the time period is included. Phosphorus 2.4 2.3 - 4.7 mg/dL [facility] Specimen Blood Performing Organization Address [facility] Phone Number [place] [phone] * Magnesium (03/10/2018 4:35 AM CDT) Only the most recent of 2 results within the time period is included. Magnesium 1.9 1.6 - 2.6 mg/dL [facility] Specimen Blood Performing Organization Address [facility] Phone Number [address] * Glucose, serum (03/09/2018 8:32 AM CDT) Only the most recent of 2 results within the time period is included. Glucose 145 (H) 70 - 105 mg/dL [facility] Specimen Blood Narrative Performed At If last glucose was less than 500, may do bedside glucose instead of serum [facility] glucose[facility] Performing Organization Address [facility] Phone Number [place] [phone] [place] [address] * Urinalysis w/ Microscopic (03/09/2018 7:20 AM CDT) Color, UA Yellow [facility] Clarity, UA Clear [facility] Specific [place], UA 1.024 1.001 - 1.035 [facility] pH, UA 6.0 5.0 - 8.0 [facility] Protein, UA 30 mg/dL (A) Negative [facility] Glucose, UA >1000 mg/dL (A) Negative [facility] Ketones, UA >150 mg/dL (A) Negative [facility] Bilirubin, UA Negative Negative [facility] Blood, UA Negative Negative [facility] Nitrite, UA Negative Negative [facility] Leukocytes, UA Moderate (A) Negative [facility] Urobilinogen, UA 0.2 0.2 - 1.0 mg/dL [facility] RBC, UA <1 /HPF [facility] WBC, UA 52 /HPF [facility] Mucus Occasional [facility] Squam Epithel, UA <1 /HPF [facility] Casts 4 /LPF [facility] Specimen Source [facility] Specimen Urine Performing Organization Address City/[facility] Phone Number [address] * Urine culture (03/09/2018 7:20 AM CDT) Result No growth [facility] Specimen Urine - Urine, Voided Performing Organization Address City/[facility] Phone Number [address] * Potassium (03/09/2018 6:54 AM CDT) Only the most recent of 2 results within the time period is included. Potassium 3.9Comment: Specimen 3.5 - 5.1 meq/L [facility] moderately hemolyzed [facility] Specimen Blood Performing Organization Address City/[facility] Phone Number [address] * Procalcitonin (03/09/2018 6:19 AM CDT) Procalcitonin <0.05 <0.05 ng/mL [facility] Specimen Blood Narrative Performed At SEPSIS RISK (ng/mL) [facility] Low:0.05-0.50 [facility] Intermediate: 0.51-2.00 High: >=2.01 Performing Organization Address City/[facility] Phone Number [facility] [address] [place] [address] MEDICAL [facility]ENTER * ECG 12 lead (03/09/2018 3:44 AM CDT) Only the most recent of 2 results within the time period is included. Narrative Performed At Ventricular Rate 81 BPM GE MUSE Atrial Rate 81 BPM P-R Interval 112 ms QRS Duration 90 ms Q-T Interval 358 ms QTC Calculation(Bazett) 415 ms P [place] 60 degrees R [place] 58 degrees T [place] 20 degrees Normal sinus rhythm Nonspecific T [...] 358 ms QTC Calculation(Bazett) 415 ms P [place] 60 degrees R [place] 58 degrees T [place] 20 degrees Normal sinus rhythm Nonspecific T wave abnormality Abnormal ECG When compared with ECG of 09-MAR-2018 03:43, No significant change was found Confirmed by MD MOFFETT J. ALBERTO ([id number]) on 03/09/2018 11:28:51 AM Performing Organization Address City/[facility] Phone Number [employer] * Blood gas, venous (03/09/2018 3:15 AM CDT) pH, Julio 7.33 7.32 - 7.42 [facility] pCO2, Julio 30 (L) 41 - 51 mmHg [facility] pO2, Julio 172 (H) 25 - 40 mmHg [facility] O2 Sat, Julio 99.1 (H) 40.0 - 70.0 % [facility] HCO3, Julio 15 (L) 21 - 29 mmol/L [facility] Base Excess, Julio -9.0 (L) -2.0 - 3.0 mmol/L [facility] Patient Temperature 36.7 C [facility] FIO2 21.0 % [facility] Specimen Blood Performing Organization Address [facility] Phone Number [address] * Blood culture #2 (03/09/2018 3:01 AM CDT) Only the most recent of 2 results within the time period is included. Result No growth in 5 days [facility] Specimen Blood - Arm, Left Performing Organization Address [facility] Phone Number [address] * Type and screen, automated (03/09/2018 2:49 AM CDT) ABO/RH AUTOMATED (BEAKER) O POSITIVE [facility] Ab Scrn NEGATIVE [facility] Specimen Blood Performing Organization Address [facility] Phone Number [address] * TSH/Free T4 If Indicated (03/09/2018 2:44 AM CDT) TSH 0.25 (L) 0.35 - 4.94 uIU/mL [facility] Specimen Blood Performing Organization Address [facility] Phone Number [address] * Lactic acid, venous, whole blood (03/09/2018 2:44 AM CDT) Lactate, Venous 1.7Comment: Specimen slightly 0.5 - 2.2 mmol/L [facility] hemolyzed [facility] Specimen Blood Narrative Performed At Effective 03/14/2016: Units/Reference Range Change [facility] New: 0.5-2.2 mmol/LPrevious: 5-20 mg/dL [facility] Performing Organization Address City/State/Zipcode Phone Number [address] * T4, free (03/09/2018 2:44 AM CDT) Free T4 1.22 0.70 - 1.48 ng/dL [facility] Specimen Blood Performing Organization Address City/[facility] Phone Number [address] * Hemoglobin A1c (03/09/2018 2:41 AM CDT) Hemoglobin A1C 11.3 (H) 4.3 - 6.1 % [facility] Specimen Blood Performing Organization Address [facility] Phone Number [address] * Ketone, blood (03/09/2018 2:41 AM CDT) Ketones, Blood 4.8 (H) <0.4 mmol/L [facility] Specimen Blood Performing Organization Address [facility] Phone Number [address] * Troponin I (03/09/2018 2:38 AM CDT) Troponin I <0.01 0.00 - 0.03 ng/mL [facility] Specimen Blood Narrative Performed At Troponin I (TnI) levels must be interpreted in the context of the presenting [facility] symptoms and the clinical findings. Elevated TnI levels indicate myocardial [facility] damage, but are not specific for [...] glucose. Performing Organization Address City/State/Zipcode Phone Number [facility] [address] [place] [address] [facility] [place] * Lipase (03/09/2018 2:38 AM CDT) Lipase <4 (L) 8 - 78 U/L [facility] Specimen Blood Narrative Performed At If last glucose was less than 500, may do bedside glucose instead of serum [facility] glucose. [facility] Performing Organization Address City/[facility] Phone Number [facility] [address] [place] [address] [facility] * Hepatic function panel (03/09/2018 2:38 AM CDT) Protein, Total 8.2 6.0 - 8.3 gm/dL [facility] Albumin 4.8 3.5 - 5.0 g/dL [facility] Total Bilirubin 0.9 0.2 - 1.2 mg/dL [facility] Bilirubin, Direct 0.4 0.1 - 0.5 mg/dL [facility] Alkaline Phosphatase 96 40 - 150 U/L [facility] AST 14 5 - 34 U/L [facility] ALT 12 6 - 55 U/L [facility] Specimen Blood Narrative Performed At If last glucose was less than 500, may do bedside glucose instead of serum [facility] glucose. [facility] Performing Organization Address City/[facility] Phone Number [facility] [address] [place] [address] [facility] after 01/29/2018 Insurance Payer Benefit Subscriber ID Type Phone Address Plan / Group BLUE CROSS/BLUE SHIELD BCBS PPO xxxxxxxxxxxx PPO [phone] [address] [place] [address] CHOICE Advance Directives For more information, please contact: [facility] [address] [place] [address] Date Inactivated Comments Code Status Date Activated 03/11/2018 4:41 PM Full Code 03/09/2018 1:27 AM This code status was determined by: Patient
[2019-01-30] MEDS ORDERED: ONDANSETRON HCL4 MG PO (16:17)
[2019-01-30] MEDS ORDERED: SODIUM CHLORIDE 0.9% 1000ML 1,000 ML IV STA (16:25)
[2019-01-30 16:38] LABS: BILIRUBIN,URINE 1+ (NEGATIVE); CLARITY,URINE SL CLOUDY (CLEAR); COLOR,URINE STRAW (YELLOW); KETONES,URINE 2+ (NEGATIVE); LEUKOCYTE ESTERASE ,URINE NEGATIVE (NEGATIVE); NITRITE,URINE NEGATIVE (NEGATIVE); PROTEIN,URINE DIPSTICK 1+ (NEGATIVE); URINE UROBILINOGEN 0.2 mg/dL (0.2 - 1)
[2019-01-30 16:48] LABS: ALANINE AMINOTRANSFERASE 10 IU/L (0-55); ALBUMIN 4.6 g/dL (3.5-5.0); ALBUMIN/GLOBULIN RATIO 1.2 (0.8-2.0); ALKALINE PHOSPHATASE 116 IU/L (40-150); AMYLASE 15 U/L (25-125); ANION GAP 29.9 mmol/L (8-16); BLOOD UREA NITROGEN 12 mg/dL (7-26); BUN/CREATININE RATIO 9 (6-25); CALCIUM 9.6 mg/dL (8.4-10.2); CARBON DIOXIDE 17 mmol/L (22-29); CHLORIDE 76 mmol/L (98-107); CREATININE, SERUM 1.35 mg/dL (0.72-1.25); EST GLOMERULAR FILTRATION RATE > 60 ML/MIN (60-); GLUCOSE 360 mg/dL (74-118); SODIUM 120 mmol/L (136-145)
[2019-01-30 16:49] LABS: LIPASE < 4 U/L (8-78)
[2019-01-30 16:50] LABS: POTASSIUM 2.9 mmol/L (3.5-5.1)
[2019-01-30 16:51] LABS: AMORPHOUS SEDIMENT,URINE MODERATE (FEW); BACTERIA,URINE FEW /HPF
[2019-01-30 16:52] LABS: HYALINE CASTS 0-1 (0-1)
[2019-01-30 16:56] LABS: BASOPHILS % 0.3 % (0.0-1.0); EOSINOPHILS % 0.1 % (0.0-6.0); HEMATOCRIT 47.7 % (38.2-49.6); HEMOGLOBIN 18.8 g/dL (14.0-18.0); LYMPHOCYTES # (AUTO) 1.4 (1.0-3.2); MEAN CORPUSCULAR HGB CONC 39.4 g/dL (31-35); MEAN CORPUSCULAR VOLUME 81.1 fL (81-99); MONOCYTES # (AUTO) 0.6 (0.2-0.8); MONOCYTES % 6.5 % (4.4-11.3); NEUTROPHILS # (AUTO) 7.1 (2.1-6.9); NEUTROPHILS % 77.8 % (38.7-80.0); PLATELET COUNT 436 x10e3/uL (140-360); RED BLOOD COUNT 5.88 x10e6/uL (4.3-5.7); RED CELL DISTRIBUTION WIDTH 12.6 % (11.7-14.4)
[2019-01-30] MEDS ORDERED: ONDANSETRON HCL INJ 2MG/ML 2ML 2 MG/ML VIAL IV ONE ×2 (17:00)
[2019-01-30] MEDS ORDERED: POTASSIUM CHLORIDE 10MEQ EA PO ONE (17:00)
[2019-01-30] MEDS ORDERED: POTASSIUM CHLORIDE 20 MEQ TAB CR PO ONE ×2 (17:00→17:15)
[2019-01-30 17:23] LABS: ABG HCO3 13 mmol/L (23-28); ABG PCO2 20 mmHg (41-51); ABG PH 7.44 (7.31-7.41); ABG PO2 121 mmHg (80-105)
[2019-01-30] MEDS ORDERED: INSULIN REGULAR, HUMAN 100 UNIT/1 ML 3ML VIAL IV ONE (19:45)
[2019-01-30] MEDS ORDERED: MORPHINE SULFATE 2 MG/ML SYR 1ML IV PRN (19:45)
[2019-01-30] MEDS ORDERED: ONDANSETRON HCL INJ 2MG/ML 2ML 2 MG/ML VIAL IV PRN (19:45)
[2019-01-30] MEDS ORDERED: DEXTROSE 50% SYRINGE 50 ML IV PRN (19:45)
[2019-01-30] MEDS ORDERED: MORPHINE SULFATE INJ 4 MG/ML INJ 1ML IV PRN (20:00)
[2019-01-30] MEDS: SODIUM CHLORIDE 0.9% 1000ML 1,000 ML IV SCH (20:17)
--- OUTSIDE RECORDS SUMMARY | 2019-01-30 20:23 | XMS REPORT | Clinical Summary ---
Author Author DANA [facility] Address Unknown Phone Unavailable Care Team Providers Care Compensation And Benefits Manager Name Role Phone Sharpless PCP Allergies No [...] Paxton Stanley MD Zatakia, Jigna Hiren, MD [facility] Diabetic ketoacidosis without coma associated with type [...] ms QTC Calculatio n(Bazett) 415 ms P Birchwood 60 degrees R Bir[place] 58 degrees T [place] 20 degrees Normal sinus rhythm Nonspecifi c [...] ms QTC Calculatio n(Bazett) 408 ms P [place] 64 degrees R [place] 58 degrees T [place] 20 degrees Normal sinus rhythm Nonspecifi c [...] (H)Comment: TESTED AT 70 - 110 mg/dL [facility] [address] [facility] [id number] Specimen Blood Performing Organization Address City/State/Zipcode Phone Number [facility] [address] [place] [address] [facility] * CBC (Hemogram only) (03/11/2018 4:25 AM CDT) WBC 7.1 3.5 - 10.5 K/L [facility] RBC 5.15 4.63 - 6.08 M/L [facility] Hemoglobin 15.7 13.7 - 17.5 GM/DL [facility] Hematocrit 43.7 40.1 - 51.0 % [facility] MCV 84.9 79.0 - 92.2 fL [facility] MCH 30.5 25.7 - 32.2 pg [facility] MCHC 35.9 32.3 - 36.5 GM/DL [facility] RDW 11.5 (L) 11.6 - 14.4 % [facility] Platelets 214 150 - 450 K/CU MM [facility] MPV 9.4 9.4 - 12.4 fL [facility] nRBC 0 0 - 0 /100 WBC [facility] Specimen Blood Performing Organization Address City/State/Zipcode Phone Number [facility] [address] [place] [address] [facility] * Basic Metabolic Panel (03/11/2018 4:25 AM CDT) Only the most recent of 9 results within the time period is included. Sodium 134 (L) 136 - 145 meq/L [facility] Potassium 3.3 (L) 3.5 - 5.1 meq/L [facility] Chloride 97 (L) 98 - 107 meq/L [facility] CO2 24 22 - 29 meq/L [facility] BUN 11 7 - 21 mg/dL [facility] Creatinine 0.71 0.57 - 1.25 mg/dL [facility] Glucose 153 (H) 70 - 105 mg/dL [facility] Calcium 8.8 8.4 - 10.2 mg/dL [facility] EGFR 165Comment: ESTIMATED GFR IS mL/min/1.73 sq m [facility] NOT ACCURATE CREATININE [facility] CLEARANCE IN PREDICTING GLOMERULAR FILTRATION RATE. ESTIMATED GFR IS NOT APPLICABLE FOR DIALYSIS PATIENTS. Specimen Blood Performing Organization Address City/State/Zipcode Phone Number [facility] [address] [place] [address] [facility]ENTER * TRANSFUSION SERVICE REPORT - SCAN (03/10/2018 5:40 PM CDT) Narrative Performed At * RESPIRATORY PANEL [facility] (03/10/2018 9:03 AM CDT) Human Metapneumovirus Not detected Not detected, [facility] Inconclusive [facility] Rhinovirus Not detected Not detected, [facility] Inconclusive [facility] Influenza A Not detected Not detected, [facility] Inconclusive [facility] Influenza A subtype H1 Not detected Not detected, [facility] Inconclusive [facility] Influenza A Subtype H3 Not detected Not detected, [facility] Inconclusive [facility] Influenza A Subtype Not detected Not detected, [facility] H1-2009 Inconclusive [facility] Influenza B Not detected Not detected, [facility] Inconclusive [facility] Respiratory Syncytial Not detected Not detected, [facility] Virus Inconclusive [facility] Parainfluenza Virus 1 Not detected Not detected, [facility] Inconclusive [facility] Parainfluenza Virus 2 Not detected Not detected, [facility] Inconclusive [facility] Parainfluenza virus 3 Not detected Not detected, [facility] Inconclusive [facility] Parainfluenza Virus 4 Not detected Not detected, [facility] Inconclusive [facility] Adenovirus Not detected Not detected, [facility] Inconclusive [facility] Coronavirus 229E Not detected Not detected, [facility] Inconclusive [facility] Coronavirus HKU1 Not detected Not detected, [facility] Inconclusive [facility] Coronavirus NL63 Not detected Not detected, [facility] Coronavirus OC43 Not detected Not detected, [facility] Inconclusive [facility] Bordetella Pertussis Not detected Not detected, [facility] Inconclusive [facility] Chlamydophila Pneumoniae Not detected Not detected, [facility] Inconclusive [facility] Mycoplasma Pneumoniae Not detected Not detected, [facility] Specimen Nasopharyngeal - Nasopharyngeal Swab Performing Organization Address City/State/Zipcode Phone Number [facility] [address] [place] [address] [facility] * CBC with platelet count + automated diff (03/10/2018 9:02 AM CDT) Only the most recent of 2 results within the time period is included. WBC 7.5 3.5 - 10.5 K/L [facility] RBC 5.14 4.63 - 6.08 M/L [facility] Hemoglobin 15.6 13.7 - 17.5 GM/DL [facility] Hematocrit 44.5 40.1 - 51.0 % [facility] MCV 86.6 79.0 - 92.2 fL [facility] MCH 30.4 25.7 - 32.2 pg [facility] MCHC 35.1 32.3 - 36.5 GM/DL [facility] RDW 11.8 11.6 - 14.4 % [facility] Platelets 229 150 - 450 K/CU MM [facility] MPV 9.4 9.4 - 12.4 fL [facility] nRBC 0 0 - 0 /100 WBC [facility] % Neutros 71 % [facility] % Lymphs 23 % [facility] % Monos 6 % [facility] % Eos 0 % [facility] % Baso 0 % [facility] # Neutros 5.34 1.78 - 5.38 K/L [facility] # Lymphs 1.73 1.32 - 3.57 K/L [facility] # Monos 0.43 0.30 - 0.82 K/L [facility] # Eos 0.01 (L) 0.04 - 0.54 K/L [facility] # Baso 0.01 0.01 - 0.08 K/L [facility] Immature 0 0 - 1 % [facility] Granulocytes-Relative [facility] Specimen Blood Performing Organization Address City/State/Zipcode Phone Number [facility] [address] [place] [address] MED[facility]ENTER * XR chest 1 view portable / bedside (03/10/2018 8:51 AM CDT) Narrative Performed At FINAL REPORT [employer] INDICATION: assess for acute process COMPARISON: None. TECHNIQUE: Chest radiograph, single view, portable technique. FINDINGS / IMPRESSION: There is no evidence of pneumonia or pulmonary edema. Cardiac and mediastinal contours are unremarkable. No pleural effusion or pneumothorax is demonstrated. Osseous structures are unremarkable. Signed: Erasmo Montgomery MD Report Verified Date/Time:03/10/2018 09:41:23 Reading Location: [facility] Radiology Reading Room Procedure Note Interface, [...] Report Verified Date/Time: 03/10/2018 09:41:23 Reading Location: [facility] Radiology Reading Room Performing Organization Address City/State/Zipcode Phone Number [facility] * Phosphorus (03/10/2018 4:35 AM CDT) Only the most recent of 7 results within the time period is included. Phosphorus 2.4 2.3 - 4.7 mg/dL [facility] Specimen Blood Performing Organization Address [facility] Phone Number [place] [phone] * Magnesium (03/10/2018 4:35 AM CDT) Only the most recent of 2 results within the time period is included. Magnesium 1.9 1.6 - 2.6 mg/dL [facility] Specimen Blood Performing Organization Address [facility] Phone Number [address] * Glucose, serum (03/09/2018 8:32 AM CDT) Only the most recent of 2 results within the time period is included. Glucose 145 (H) 70 - 105 mg/dL [facility] Specimen Blood Narrative Performed At If last glucose was less than 500, may do bedside glucose instead of serum [facility] glucose. [facility] Performing Organization Address [facility] Phone Number [place] [phone] [place] [address] * Urinalysis w/ Microscopic (03/09/2018 7:20 AM CDT) Color, UA Yellow [facility] Clarity, UA Clear [facility] Specific [place], UA 1.024 1.001 - 1.035 [facility] pH, UA 6.0 5.0 - 8.0 [facility] Protein, UA 30 mg/dL (A) Negative [facility] Glucose, UA >1000 mg/dL (A) Negative [facility] Ketones, UA >150 mg/dL (A) Negative [facility] Bilirubin, UA Negative Negative [facility] Blood, UA Negative Negative [facility] Nitrite, UA Negative Negative [facility] Leukocytes, UA Moderate (A) Negative [facility] Urobilinogen, UA 0.2 0.2 - 1.0 mg/dL [facility] RBC, UA <1 /HPF [facility] WBC, UA 52 /HPF [facility] Mucus Occasional [facility] Squam Epithel, UA <1 /HPF [facility] Casts 4 /LPF [facility] Specimen Source [facility] Specimen Urine Performing Organization Address City/[facility] Phone Number [address] * Urine culture (03/09/2018 7:20 AM CDT) Result No growth [facility] Specimen Urine - Urine, Voided Performing Organization Address City/[facility] Phone Number [address] * Potassium (03/09/2018 6:54 AM CDT) Only the most recent of 2 results within the time period is included. Potassium 3.9Comment: Specimen 3.5 - 5.1 meq/L [facility] moderately hemolyzed [facility] Specimen Blood Performing Organization Address City/[facility] Phone Number [address] * Procalcitonin (03/09/2018 6:19 AM CDT) Procalcitonin <0.05 <0.05 ng/mL [facility] Specimen Blood Narrative Performed At SEPSIS RISK (ng/mL) [facility] Low:0.05-0.50 [facility] Intermediate: 0.51-2.00 High: >=2.01 Performing Organization Address City/[facility] Phone Number [facility] [address] [place] [address] MEDICAL CENTER * ECG 12 lead (03/09/2018 3:44 AM CDT) Only the most recent of 2 results within the time period is included. Narrative Performed At Ventricular Rate 81 BPM [facility] Atrial Rate 81 BPM P-R Interval 112 ms QRS Duration 90 ms Q-T Interval 358 ms QTC Calculation(Bazett) 415 ms P [place]ch[place] 60 degrees R [place]ch[place] 58 degrees T [place] 20 degrees Normal sinus rhythm Nonspecific T [...] 358 ms QTC Calculation(Bazett) 415 ms P [place] 60 degrees R [place] 58 degrees T [place] 20 degrees Normal sinus rhythm Nonspecific T wave abnormality Abnormal ECG When compared with ECG of 09-MAR-2018 03:43, No significant change was found Confirmed by MD MOFFETT J. ALBERTO ([id number]) on 03/09/2018 11:28:51 AM Performing Organization Address City/[facility] Phone Number [employer] * Blood gas, venous (03/09/2018 3:15 AM CDT) pH, Julio 7.33 7.32 - 7.42 [facility] pCO2, Julio 30 (L) 41 - 51 mmHg [facility] pO2, Julio 172 (H) 25 - 40 mmHg [facility] O2 Sat, Julio 99.1 (H) 40.0 - 70.0 % [facility] HCO3, Julio 15 (L) 21 - 29 mmol/L [facility] Base Excess, Julio -9.0 (L) -2.0 - 3.0 mmol/L [facility] Patient Temperature 36.7 C [facility] FIO2 21.0 % [facility] Specimen Blood Performing Organization Address [facility] Phone Number [address] * Blood culture #2 (03/09/2018 3:01 AM CDT) Only the most recent of 2 results within the time period is included. Result No growth in 5 days [facility] Specimen Blood - Arm, Left Performing Organization Address [facility] Phone Number [address] * Type and screen, automated (03/09/2018 2:49 AM CDT) ABO/RH AUTOMATED (BEAKER) O POSITIVE [facility] Ab Scrn NEGATIVE [facility] Specimen Blood Performing Organization Address [facility] Phone Number [address] * TSH/Free T4 If Indicated (03/09/2018 2:44 AM CDT) TSH 0.25 (L) 0.35 - 4.94 uIU/mL [facility] Specimen Blood Performing Organization Address [facility] Phone Number [address] * Lactic acid, venous, whole blood (03/09/2018 2:44 AM CDT) Lactate, Venous 1.7Comment: Specimen slightly 0.5 - 2.2 mmol/L [facility] hemolyzed [facility] Specimen Blood Narrative Performed At Effective 03/14/2016: Units/Reference Range Change [facility] New: 0.5-2.2 mmol/LPrevious: 5-20 mg/dL [facility] Performing Organization Address City/State/Zipcode Phone Number [address] * T4, free (03/09/2018 2:44 AM CDT) Free T4 1.22 0.70 - 1.48 ng/dL [facility] Specimen Blood Performing Organization Address City/[facility] Phone Number [address] * Hemoglobin A1c (03/09/2018 2:41 AM CDT) Hemoglobin A1C 11.3 (H) 4.3 - 6.1 % [facility] Specimen Blood Performing Organization Address [facility] Phone Number [address] * Ketone, blood (03/09/2018 2:41 AM CDT) Ketones, Blood 4.8 (H) <0.4 mmol/L [facility] Specimen Blood Performing Organization Address [facility] Phone Number [address] * Troponin I (03/09/2018 2:38 AM CDT) Troponin I <0.01 0.00 - 0.03 ng/mL [facility] Specimen Blood Narrative Performed At Troponin I (TnI) levels must be interpreted in the context of the presenting [facility] symptoms and the clinical findings. Elevated TnI levels indicate myocardial [facility] damage, but are not specific for ischemic [...] glucose. Performing Organization Address City/State/Zipcode Phone Number [facility] [address] [place] [address] MEDICAL [facility] * Lipase (03/09/2018 2:38 AM CDT) Lipase <4 (L) 8 - 78 U/L [facility] Specimen Blood Narrative Performed At If last glucose was less than 500, may do bedside glucose instead of serum [facility] glucose. [facility] Performing Organization Address City/[facility] Phone Number [facility] [address] [place] [address] [facility] * Hepatic function panel (03/09/2018 2:38 AM CDT) Protein, Total 8.2 6.0 - 8.3 gm/dL [facility] Albumin 4.8 3.5 - 5.0 g/dL [facility] Total Bilirubin 0.9 0.2 - 1.2 mg/dL [facility] Bilirubin, Direct 0.4 0.1 - 0.5 mg/dL [facility] Alkaline Phosphatase 96 40 - 150 U/L [facility] AST 14 5 - 34 U/L [facility] ALT 12 6 - 55 U/L [facility] Specimen Blood Narrative Performed At If last glucose was less than 500, may do bedside glucose instead of serum [facility] glucose. [facility] Performing Organization Address City/[facility] Phone Number [facility] [address] [place] [address] [facility] after 01/29/2018 Insurance Payer Benefit Subscriber ID Type Phone Address Plan / Group BLUE CROSS/BLUE SHIELD BCBS PPO xxxxxxxxxxxx PPO [phone] [address] [place] [address] CHOICE Advance Directives For more information, please contact: [facility] [address] [place] [address] Date Inactivated Comments Code Status Date Activated 03/11/2018 4:41 PM Full Code 03/09/2018 1:27 AM This code status was determined by: Patient
[2019-01-30 20:55] VITALS: BP 136/81
--- NOTE | 2019-01-30 20:55 | NUR ---
patient received to room 295 via stretcher from the er. vss. no c/o pain noted. ivf continue to infuse without difficulty. admit assessment/history obtained. patient instructed to call for assistance when needed.
[2019-01-30] MEDS: INSULIN LISPRO 100 UNIT/1 ML 3ML VIAL SQ SCH (21:00)
[2019-01-30] MEDS: METOCLOPRAMIDE HCL 10 MG TAB PO SCH (21:00)
[2019-01-30 21:12] VITALS: BP 136/81
[2019-01-30] MEDS ORDERED: REGLAN5 MG PO (22:22)
[2019-01-31] VITALS (10 sets, daily range): BP systolic 105–144; BP diastolic 60–94
[2019-01-31] MEDS: SODIUM CHLORIDE 0.9% 1000ML 1,000 ML IV SCH ×6 (01:42→22:22)
[2019-01-31 06:55] LABS: BASOPHILS % 0.4 % (0.0-1.0); EOSINOPHILS # (AUTO) 0.1 (0.0-0.4); EOSINOPHILS % 0.8 % (0.0-6.0); HEMATOCRIT 38.7 % (38.2-49.6); HEMOGLOBIN 14.6 g/dL (14.0-18.0); LYMPHOCYTES # (AUTO) 1.9 (1.0-3.2); LYMPHOCYTES % 26.5 % (18.0-39.1); MEAN CORPUSCULAR HEMOGLOBIN 30.8 pg (28-32); MEAN CORPUSCULAR HGB CONC 37.7 g/dL (31-35); MEAN CORPUSCULAR VOLUME 81.6 fL (81-99); MONOCYTES # (AUTO) 0.5 (0.2-0.8); MONOCYTES % 6.8 % (4.4-11.3); NEUTROPHILS # (AUTO) 4.6 (2.1-6.9); NEUTROPHILS % 64.9 % (38.7-80.0); PLATELET COUNT 300 x10e3/uL (140-360); RED BLOOD COUNT 4.74 x10e6/uL (4.3-5.7); RED CELL DISTRIBUTION WIDTH 12.6 % (11.7-14.4)
[2019-01-31 07:13] LABS: ANION GAP 19.4 mmol/L (8-16); BLOOD UREA NITROGEN 9 mg/dL (7-26); BUN/CREATININE RATIO 11 (6-25); CARBON DIOXIDE 17 mmol/L (22-29); CHLORIDE 90 mmol/L (98-107); CREATININE, SERUM 0.85 mg/dL (0.72-1.25); EST GLOMERULAR FILTRATION RATE > 60 ML/MIN (60-); GLUCOSE 260 mg/dL (74-118); MAGNESIUM 1.8 MG/DL (1.3-2.1); SODIUM 124 mmol/L (136-145)
[2019-01-31 07:19] LABS: POTASSIUM 2.4 mmol/L (3.5-5.1)
--- NOTE | 2019-01-31 07:21 | NUR ---
PATIENT IN BED RESTING WITH NO S/S OF DISCOMFORT. BED IN LOWER POSITION, CALL LIGHT AT REACH.
--- NOTE | 2019-01-31 07:36 | NUR ---
SPOKE WITH MD REGARDING ABNORMAL LAB, NEW ORDER RECEIVED.
[2019-01-31] MEDS ORDERED: INSULIN REGULAR, HUMAN 3ML VL 300 UNIT in SODIUM CHLORIDE 0.45% 100 ML 300 ML IV SCH ×2 (07:44)
[2019-01-31] MEDS ORDERED: POTASSIUM CHLORIDE 20 MEQ TAB CR PO ONE ×3 (07:45→16:00)
[2019-01-31] MEDS ORDERED: DEXTROSE 50% SYRINGE 50 ML IV PRN (07:45)
[2019-01-31] MEDS: INSULIN LISPRO 100 UNIT/1 ML 3ML VIAL SQ SCH ×4 (08:00→21:00)
[2019-01-31] MEDS ORDERED: SODIUM PHOSPHATE 3 MMOL/ML INJ IV SCH (08:00)
[2019-01-31] MEDS: METOCLOPRAMIDE HCL 10 MG TAB PO SCH ×4 (08:40→22:22)
[2019-01-31] MEDS ORDERED: SODIUM PHOSPHATE 10 MMOL in SODIUM CHLORIDE 0.9% 250ML 250 ML IV ONE (09:00)
--- NOTE | 2019-01-31 09:30 | NUR ---
PATIENT TRANSFERRED TO [facility]. BED SIDE REPORT GIVEN TO RECEIVING NURSE. ALL PERSONAL ITEMS TAKEN WITH PATIENT.
--- NOTE | 2019-01-31 09:52 | History and Physical ---
CHIEF COMPLAINT: Nausea, vomiting, and diabetes. HISTORY OF PRESENT ILLNESS: The patient is a 23-year-old man. He has a history of type 1 diabetes. He also has gastroparesis. He uses insulin on a regular basis. He also sees a wedding designer through [facility]. He started vomiting yesterday. He had some abdominal pain, but no diarrhea. He denied any fevers. He started feeling dizzy, lightheaded, and had a sense that he was in DKA, so he went to the emergency department. In the emergency department, he was found to have an anion gap, metabolic acidosis, and ketones in the urine. PAST MEDICAL HISTORY: 1. Type 1 diabetes mellitus. 2. Gastroparesis. PAST SURGICAL HISTORY: None. ALLERGIES: NO KNOWN DRUG ALLERGIES. FAMILY HISTORY: The patient has no significant family history. SOCIAL HISTORY: The patient is not using any alcohol. He does not smoke. REVIEW OF SYSTEMS: The patient is afebrile. The patient does not have any headache. He has no fevers. He is not having any neck pain. He has no chest pain. He is not having any difficulty breathing. He has no cough. He did have some nausea and vomiting, and some abdominal pain. He has no focal neurological complaints. PHYSICAL EXAMINATION: VITAL SIGNS: The patient is afebrile. The blood pressure is 144/94 and the saturation is 97%. The pulse is 84, the temperature is 96.3, respiratory rate is 18. HEENT: Shows no facial swelling or erythema. The nasal mucosa is normal. The oropharynx is normal. LYMPHATIC: Shows no submandibular, cervical, or supraclavicular adenopathy. NECK: Shows no JVD or thyromegaly. There is no nuchal rigidity. CARDIAC: Reveals a regular rate and rhythm with normal S1 and S2. There are no murmurs or rubs. LUNGS: Auscultation of lungs reveals clear breath sounds bilaterally. There is no wheezing. ABDOMEN: Soft and nontender. There is no rebound or guarding. EXTREMITIES: Shows no leg edema or calf tenderness. There is no cyanosis or clubbing. SKIN: Shows no rashes. NEUROLOGICAL: Shows no focal abnormalities. LABORATORY DATA: Chemistries on admission showed a sodium of 120, potassium of 2.8, chloride of 76, and a bicarb of 17 with an anion gap of 30. Creatinine was 1.35 and the glucose was 360. Total bilirubin was 1.8. Amylase and lipase were normal. Urinalysis showed urine specific gravity of 1.030 and 2+ ketones. IMPRESSION: 1. Diabetic ketoacidosis. 2. Hyponatremia. 3. Hypokalemia. 4. Hypophosphatemia. 5. Diabetic gastroparesis. PLAN: 1. The patient will have aggressive IV hydration. 2. Insulin drip. 3. Replace potassium. 4. Monitor sodium. 5. Replace phosphorus. 6. Gastroenterology consultation. Rodrigo Irby MD [facility] /[id number]
[2019-01-31] MEDS ORDERED: INSULIN REGULAR, HUMAN 3ML VL 100 UNIT in SODIUM CHLORIDE 0.45% 100 ML 100 ML IV SCH ×2 (10:15)
--- NOTE | 2019-01-31 10:45 | NUR ---
blood sugar 228, insulin drip started @ 3 units/hr per protocol
--- NOTE | 2019-01-31 12:30 | NUR ---
blood sugar 172, insulin drip decreased per protocol, new rate 2 units/hr
[2019-01-31 15:44] LABS: ALANINE AMINOTRANSFERASE 8 IU/L (0-55); ALBUMIN 3.9 g/dL (3.5-5.0); ALBUMIN/GLOBULIN RATIO 1.3 (0.8-2.0); ALKALINE PHOSPHATASE 98 IU/L (40-150); ANION GAP 19.4 mmol/L (8-16); BLOOD UREA NITROGEN 6 mg/dL (7-26); BUN/CREATININE RATIO 7 (6-25); CALCIUM 8.4 mg/dL (8.4-10.2); CARBON DIOXIDE 19 mmol/L (22-29); CHLORIDE 89 mmol/L (98-107); CREATININE, SERUM 0.88 mg/dL (0.72-1.25); EST GLOMERULAR FILTRATION RATE > 60 ML/MIN (60-); GLUCOSE 218 mg/dL (74-118); SODIUM 125 mmol/L (136-145)
[2019-01-31 15:50] LABS: POTASSIUM 2.4 mmol/L (3.5-5.1)
--- NOTE | 2019-01-31 17:12 | Consultation ---
DATE OF CONSULTATION: CHIEF COMPLAINT: Nausea and vomiting. HISTORY OF PRESENT ILLNESS: Very pleasant 23-year-old -[place] male with history of diabetes type 1, on insulin. He has been diabetic since the age of 17, consulted for nausea and vomiting. He was admitted with diabetic ketoacidosis. He also has history of gastroparesis. He has been on Reglan at home. He denies any symptoms right now after being in the hospital for 24 hours. He denies missing his insulin on a regular basis. PAST MEDICAL HISTORY: History of diabetes and gastroparesis. PAST SURGICAL HISTORY: None. SOCIAL HISTORY: Nonsignificant. ALLERGIES: NEGATIVE. FAMILY HISTORY: None. REVIEW OF SYSTEMS: The patient had nausea, vomiting, and abdominal pain, otherwise negative. PHYSICAL EXAMINATION: VITAL SIGNS: . GENERAL: A well-nourished -[place]ic man, in no distress. HEENT: No pallor. ABDOMEN: Soft, nontender. EXTREMITIES: No edema . ASSESSMENT AND PLAN: Nausea and vomiting, most likely related to acute on chronic gastroparesis secondary to diabetic ketoacidosis. The patient is improving on treatment of his diabetes. He had a gastric emptying study that showed slow digestion of the stomach. He has been seen by Gastroenterology at [facility]. At the present time, the patient appears to be fairly asymptomatic. He has been eating with no problems. I recommend to follow closely. If no further nausea or vomiting occurs, he will be able to be discharged. If his vomiting recurs, he may need to have an EGD. MD SHARMAINE Oneill/CHUNL /[id number]
--- NOTE | 2019-01-31 22:20 | NUR ---
BS - 141, DRIP DECREASED BY 1 UNIT TO 2 UNITS PER HOUR.
[2019-02-01] VITALS (8 sets, daily range): BP systolic 93–123; BP diastolic 56–82
--- NOTE | 2019-02-01 02:06 | NUR ---
BS - 46. INSULIN DRIP STOPPED. RECHECK IN ONE HOUR.
[2019-02-01] MEDS: SODIUM CHLORIDE 0.9% 1000ML 1,000 ML IV SCH (03:17)
[2019-02-01 05:54] LABS: ALANINE AMINOTRANSFERASE 7 IU/L (0-55); ALBUMIN 3.2 g/dL (3.5-5.0); ALBUMIN/GLOBULIN RATIO 1.5 (0.8-2.0); ALKALINE PHOSPHATASE 70 IU/L (40-150); ANION GAP 10.2 mmol/L (8-16); BLOOD UREA NITROGEN < 5 mg/dL (7-26); CARBON DIOXIDE 31 mmol/L (22-29); CHLORIDE 90 mmol/L (98-107); CREATININE, SERUM 0.67 mg/dL (0.72-1.25); EST GLOMERULAR FILTRATION RATE > 60 ML/MIN (60-); GLUCOSE 109 mg/dL (74-118); SODIUM 129 mmol/L (136-145)
[2019-02-01 06:06] LABS: BUN/CREATININE RATIO 7 (6-25)
[2019-02-01 06:09] LABS: POTASSIUM 2.2 mmol/L (3.5-5.1)
--- NOTE | 2019-02-01 06:20 | NUR ---
BS - 41, ORANGE JUICE GIVEN, PT REFUSES D 50. DR Carissa RAMIREZ FOR K - 2.2, NA - 129. ORDERS RECEIVED TO CHANGE IV FLUIDS TO 1/2 NS WITH 20 KCL AT 100CC/HR AND FOR 40 MEQ KCL NOW AND IN 4 HOURS. Addendum: 02/01/19 at 0706 by Nerissa Smith LVN INSULIN DRIP STOPPED
[2019-02-01] MEDS ORDERED: POTASSIUM CHLORIDE 20 MEQ TAB CR PO STA (06:37)
[2019-02-01] MEDS: INSULIN LISPRO 100 UNIT/1 ML 3ML VIAL SQ SCH ×5 (06:56→21:19)
[2019-02-01] MEDS: SOD CHL 0.45%/POT CHL 20MEQ 1,000 ML IV SCH ×2 (06:56→16:27)
[2019-02-01] MEDS: METOCLOPRAMIDE HCL 10 MG TAB PO SCH ×4 (08:04→21:26)
[2019-02-01] MEDS ORDERED: POTASSIUM CHLORIDE 20 MEQ TAB CR PO SCH (09:00)
[2019-02-01] MEDS ORDERED: POTASSIUM CHLORIDE 20 MEQ TAB CR PO ONE ×3 (09:00)
[2019-02-01] MEDS ORDERED: INSULIN GLARGINE 100 UNITS/ML VIAL SQ NR (12:15)
[2019-02-01] MEDS ORDERED: POTASSIUM CHLORIDE 20 MEQ TAB CR PO NR (12:45)
--- NOTE | 2019-02-01 14:43 | Progress Note ---
DATE: 02/01/2019 SUBJECTIVE: The patient's blood sugars returned to normal and his insulin drip was stopped. He is not vomiting or having abdominal pain. PHYSICAL EXAMINATION: VITAL SIGNS: The blood pressure is 118/73 and the pulse is 79. The patient is afebrile. HEENT: Shows no facial swelling or erythema. CARDIAC: Reveals a regular rate and rhythm with normal S1 and S2. There are no murmurs or rubs heard. LUNGS: Auscultation of lungs reveals clear breath sounds bilaterally. There is no wheezing. ABDOMEN: Soft and nontender. There is no rebound or guarding. EXTREMITIES: Show no leg edema or calf tenderness. There is no cyanosis or clubbing. LABORATORY DATA: Sodium is 129 and the potassium is 2.2. The chloride is 31 and the anion gap is normal. IMPRESSION: 1. Diabetic ketoacidosis. 2. Diabetic gastroparesis. 3. Hypokalemia. PLAN: 1. Switch the patient to subcutaneous insulin. 2. Continue IV hydration. 3. Replace potassium. 4. Possible discharge tomorrow. Rodrigo Irby MD [facility]/MODL /[id number]
[2019-02-01 18:50] LABS: ALANINE AMINOTRANSFERASE 8 IU/L (0-55); ALBUMIN 3.3 g/dL (3.5-5.0); ALBUMIN/GLOBULIN RATIO 1.5 (0.8-2.0); ALKALINE PHOSPHATASE 77 IU/L (40-150); ANION GAP 8.8 mmol/L (8-16); BLOOD UREA NITROGEN 5 mg/dL (7-26); BUN/CREATININE RATIO 7 (6-25); CALCIUM 8.5 mg/dL (8.4-10.2); CARBON DIOXIDE 33 mmol/L (22-29); CHLORIDE 91 mmol/L (98-107); CREATININE, SERUM 0.69 mg/dL (0.72-1.25); EST GLOMERULAR FILTRATION RATE > 60 ML/MIN (60-); GLUCOSE 150 mg/dL (74-118); SODIUM 130 mmol/L (136-145)
[2019-02-01 18:54] LABS: POTASSIUM 2.8 mmol/L (3.5-5.1)
--- NOTE | 2019-02-01 19:12 | NUR ---
Report received from AM nurse. Patient resting on his bed. Denied pain and no SOB. Respiration even and unlabored, Spo2 maintained 100% with RA. Bed in lower position,locked. Call borja within reach. Will continue to monitor.
[2019-02-01] MEDS: INSULIN GLARGINE 100 UNITS/ML VIAL SQ SCH (21:25)
[2019-02-02 00:14] VITALS: BP 118/63
[2019-02-02] MEDS: SOD CHL 0.45%/POT CHL 20MEQ 1,000 ML IV SCH (02:30)
[2019-02-02 05:24] LABS: ALANINE AMINOTRANSFERASE 8 IU/L (0-55); ALBUMIN 3.3 g/dL (3.5-5.0); ALBUMIN/GLOBULIN RATIO 1.5 (0.8-2.0); ALKALINE PHOSPHATASE 70 IU/L (40-150); ANION GAP 8.9 mmol/L (8-16); BLOOD UREA NITROGEN 5 mg/dL (7-26); BUN/CREATININE RATIO 9 (6-25); CALCIUM 8.4 mg/dL (8.4-10.2); CARBON DIOXIDE 35 mmol/L (22-29); CHLORIDE 88 mmol/L (98-107); CREATININE, SERUM 0.57 mg/dL (0.72-1.25); EST GLOMERULAR FILTRATION RATE > 60 ML/MIN (60-); GLUCOSE 184 mg/dL (74-118); SODIUM 129 mmol/L (136-145)
[2019-02-02 05:44] LABS: POTASSIUM 2.9 mmol/L (3.5-5.1)
[2019-02-02 05:48] VITALS: BP 113/67
[2019-02-02] MEDS ORDERED: POTASSIUM CHLORIDE 20 MEQ TAB CR PO ONE (06:45)
[2019-02-02 07:50] VITALS: BP 109/75
[2019-02-02] MEDS: METOCLOPRAMIDE HCL 10 MG TAB PO SCH ×2 (08:14→11:43)
[2019-02-02] MEDS: INSULIN LISPRO 100 UNIT/1 ML 3ML VIAL SQ SCH ×2 (08:19→11:30)
[2019-02-02 09:00] VITALS: BP 103/73
[2019-02-02] MEDS: INSULIN GLARGINE 100 UNITS/ML VIAL SQ SCH (09:48)
[2019-02-02] MEDS ORDERED: POTASSIUM CHLORIDE 20 MEQ TAB CR PO STA (12:27)
[2019-02-02 12:55] VITALS: BP 103/73
--- NOTE | 2019-02-02 13:30 | NUR ---
patient discharged home verbalized understanding of d/c instructions.
[2019-02-02 13:34] VITALS: BP 103/73
--- NOTE | 2019-02-03 10:42 | Discharge Summary ---
DISCHARGE DIAGNOSES: 1. Diabetic ketoacidosis. 2. Diabetic gastroparesis. 3. Hypokalemia. DISCHARGE MEDICATIONS: 1. Levemir insulin 12 units q.a.m. and 14 units q. evening. 2. Lispro insulin as needed by sliding scale. 3. Metoclopramide 5 mg p.o. three times a day. 4. Zofran 4 mg p.o. t.i.d. p.r.n. HISTORY OF PRESENT ILLNESS: The patient is a 23-year-old man. He has type 1 diabetes. He has gastroparesis. He follows at [facility] and sees an body specialist as well as a assistant property manager. He uses insulin on a daily basis. He came in complaining of some abdominal pain as well as nausea and vomiting, but no diarrhea. He denied any fevers or lightheadedness. HOSPITAL COURSE: The patient presented. He had an elevated anion gap with ketones in the urine and blood sugars in the 250-350 range. His bicarbonate was 10. He also had a low potassium. The patient was admitted and given IV insulin along with fluids. He was continued on an insulin drip until his anion gap improved. He also received several 100 milliequivalents of potassium for a potassium that was as low as 2.2. At the time of discharge, it was increased to 2.9 and improving. The patient was very eager to go home and felt much better. DISPOSITION: The patient will be discharged home. He is scheduled to follow up with his regular body specialist. He has an appointment in three days. He will be evaluated for an insulin pump. He will also take K-Dur 40 mEq p.o. twice a day for the next three days. Rodrigo Irby MD LM/ESMER /[id number]
== END 2019-02-02 13:21 | disposition home or self-care (01) | DRG 638 ==
LOC: ER 14:31 → ERHOLD 20:21 → MED/SURG3 20:47 → MED/SURG 01-31 09:03 → IMCU 01-31 09:41
PROVIDERS: ADMIT Internal Medicine; ATTEND Internal Medicine
DX: E10.10 Type 1 diabetes mellitus with ketoacidosis without coma (principal); E87.1 Hypo-osmolality and hyponatremia; E10.43 Type 1 diabetes mellitus with diabetic autonomic (poly)neuropathy; Z79.4 Long term (current) use of insulin; K31.84 Gastroparesis; E87.6 Hypokalemia; E83.39 Other disorders of phosphorus metabolism
CPT/HCPCS: 36415; 36600; 80048; 80053; 81001; 82150; 82805; 82948; 83690; 83735; 84100; 85025; 93005; 96372; 99284; J1815; J2405; J7030; J7050

== ENCOUNTER 2019-03-02 19:48 | Emergency (ER) | payer OTHER ==
[~2019-03-02] VITALS: Ht 180.3 cm; Wt 64.0 kg
[~2019-03-02 19:48] MED LIST changes: +ONDANSETRON HCL4 MG PO; +REGLAN5 MG PO
--- OUTSIDE RECORDS SUMMARY | 2019-03-02 19:51 | XMS REPORT | Clinical Summary ---
Author Author DANA [facility] Address Unknown Phone Unavailable Care Team Providers Care Billing Collections Specialist Name Role Phone Sharpless PCP Allergies [...] Paxton Stanley MD Zatakia, Jigna Hiren, MD [facility] Diabetic ketoacidosis without coma associated with type 1 diabetes mellitus (HCC); High anion gap metabolic acidosis; Hyperglycemia; Leukocytosis, unspecified type; Hypokalemia 03/09/2018 Hospital General Internal Medicine - Encounter 03/11/2018 03/09/2018 Orders Only General Internal Medicine after 03/01/2018 Family History Medical History Relation Name Comments [...] ms QTC Calculatio n(Bazett) 415 ms P [place] 60 degrees R [place] 58 degrees T [place] 20 degrees Normal sinus rhythm Nonspecifi c [...] ms QTC Calculatio n(Bazett) 408 ms P [place] 64 degrees R [place] 58 degrees T [place] 20 degrees Normal sinus rhythm Nonspecifi c [...] METER Routine 03/09/2018 1:23 AM CDT after 03/01/2018 Results * RHYTHM STRIP - SCAN (03/13/2018 10:31 AM CDT) Narrative Performed At * POC-Glucose meter (03/11/2018 2:21 PM CDT) Only the most recent of 24 results within the time period is included. POC-Glucose Meter 205 (H)Comment: TESTED AT 70 - 110 mg/dL [facility] [address] [facility] [address] Specimen Blood Performing Organization Address City/State/Zipcode Phone Number [facility] [address] [place] [address] [facility] * CBC (Hemogram only) (03/11/2018 4:25 AM CDT) WBC 7.1 3.5 - 10.5 K/L [facility] RBC 5.15 4.63 - 6.08 M/L [facility] Hemoglobin 15.7 13.7 - 17.5 GM/DL [facility] Hematocrit 43.7 40.1 - 51.0 % [facility] MCV 84.9 79.0 - 92.[address] [facility] MCH 30.5 25.7 - 32.[address] [facility] MCHC 35.9 32.3 - 36.5 GM/DL [facility] RDW 11.5 (L) 11.6 - 14.4 % [facility] Platelets 214 150 - 450 K/CU MM [facility] MPV 9.4 9.4 - 12.[address] [facility] nRBC 0 0 - 0 /[address] [facility] Specimen Blood Performing Organization Address City/State/Zipcode Phone Number [facility] [address] [place] [address] MEDICAL [facility]ENTER * Basic Metabolic Panel (03/11/2018 4:25 AM CDT) Only the most recent of 9 results within the time period is included. Sodium 134 (L) 136 - 145 meq/L [facility] Potassium 3.3 (L) 3.5 - 5.1 meq/L [facility] Chloride 97 (L) 98 - 107 meq/L [facility] CO2 24 22 - 29 meq/L [facility] BUN 11 7 - 21 mg/dL [facility] Creatinine 0.71 0.57 - 1.25 mg/dL [facility] Glucose 153 (H) 70 - 105 mg/dL [facility] Calcium 8.8 8.4 - 10.2 mg/dL [facility] EGFR 165Comment: ESTIMATED GFR IS mL/min/1.73 sq m [facility] NOT ACCURATE CREATININE [facility] CLEARANCE IN PREDICTING GLOMERULAR FILTRATION RATE. ESTIMATED GFR IS NOT APPLICABLE FOR DIALYSIS PATIENTS. Specimen Blood Performing Organization Address City/State/Zipcode Phone Number [facility] [address] [place] [address] MEDICAL CENTER * TRANSFUSION SERVICE REPORT - SCAN (03/10/2018 5:40 PM CDT) Narrative Performed At * RESPIRATORY PANEL [facility] (03/10/2018 9:03 AM CDT) Human Metapneumovirus Not detected Not detected, [facility] Inconclusive [facility] Rhinovirus Not detected Not detected, [facility] Inconclusive [facility] Influenza A Not detected Not detected, [facility] Inconclusive [facility] Influenza A subtype H1 Not detected Not detected, [facility] Inconclusive [facility] Influenza A Subtype H3 Not detected Not detected, [facility] Inconclusive [facility] Influenza A Subtype Not detected Not detected, [facility] H1-2009 Inconclusive [facility] Influenza B Not detected Not detected, [facility] Inconclusive [facility] Respiratory Syncytial Not detected Not detected, [facility] Virus Inconclusive [facility] Parainfluenza Virus 1 Not detected Not detected, [facility] Inconclusive [facility] Parainfluenza Virus 2 Not detected Not detected, [facility] Inconclusive [facility] Parainfluenza virus 3 Not detected Not detected, [facility] Inconclusive [facility] Parainfluenza Virus 4 Not detected Not detected, [facility] Inconclusive [facility] Adenovirus Not detected Not detected, [facility] Inconclusive [facility] Coronavirus 229E Not detected Not detected, [facility] Inconclusive [facility] Coronavirus HKU1 Not detected Not detected, [facility] Inconclusive [facility] Coronavirus NL63 Not detected Not detected, [facility] Coronavirus OC43 Not detected Not detected, [facility] Inconclusive [facility] Bordetella Pertussis Not detected Not detected, [facility] Inconclusive [facility] Chlamydophila Pneumoniae Not detected Not detected, [facility] Inconclusive [facility] Mycoplasma Pneumoniae Not detected Not detected, [facility] Inconclusive [facility] Specimen Nasopharyngeal Performing Organization Address City/State/Zipcode Phone Number [facility] [address] [place] [address] MEDICAL [facility]ENTER * CBC with platelet count + automated diff (03/10/2018 9:02 AM CDT) Only the most recent of 2 results within the time period is included. WBC 7.5 3.5 - 10.5 K/L [facility] RBC 5.14 4.63 - 6.08 M/L [facility] Hemoglobin 15.6 13.7 - 17.5 GM/DL [facility] Hematocrit 44.5 40.1 - 51.0 % [facility] MCV 86.6 79.0 - 92.[address] [facility] MCH 30.4 25.7 - 32.[address] [facility] MCHC 35.1 32.3 - 36.5 GM/DL [facility] RDW 11.8 11.6 - 14.4 % [facility] Platelets 229 150 - 450 K/CU MM [facility] MPV 9.4 9.4 - 12.[address] [facility] nRBC 0 0 - 0 /[address] [facility] % Neutros 71 % [facility] % Lymphs 23 % [facility] % Monos 6 % [facility] % Eos 0 % [facility] % Baso 0 % [facility] # Neutros 5.34 1.78 - 5.38 K/L [facility] # Lymphs 1.73 1.32 - 3.57 K/L [facility] # Monos 0.43 0.30 - 0.82 K/L [facility] # Eos 0.01 (L) 0.04 - 0.54 K/L [facility] # Baso 0.01 0.01 - 0.08 K/L [facility] Immature 0 0 - 1 % [facility] Granulocytes-Relative [facility] Specimen Blood Performing Organization Address City/State/Zipcode Phone Number [facility] [address] [place] [address] MEDICAL CENTER * XR chest 1 view portable / bedside (03/10/2018 8:51 AM CDT) Specimen Narrative Performed At FINAL REPORT [employer] INDICATION: assess for acute process COMPARISON: None. TECHNIQUE: Chest radiograph, single view, portable technique. FINDINGS / IMPRESSION: There is no evidence of pneumonia or pulmonary edema. Cardiac and mediastinal contours are unremarkable. No pleural effusion or pneumothorax is demonstrated. Osseous structures are unremarkable. Signed: Erasmo Montgomery MD Report Verified Date/Time:03/10/2018 09:41:23 Reading Location: [facility] Radiology Reading Room Procedure Note Interface, External [...] Report Verified Date/Time: 03/10/2018 09:41:23 Reading Location: [facility] Radiology Reading Room Performing Organization Address City/State/Zipcode Phone Number [employer] * Phosphorus (03/10/2018 4:35 AM CDT) Only the most recent of 7 results within the time period is included. Phosphorus 2.4 2.3 - 4.7 mg/dL [facility] Specimen Blood Performing Organization Address [facility] [place] [address] [phone] [place] [address] * Magnesium (03/10/2018 4:35 AM CDT) Only the most recent of 2 results within the time period is included. Magnesium 1.9 1.6 - 2.6 mg/dL [facility] Specimen Blood Performing Organization Address [facility] Phone Number [place] [phone] * Glucose, serum (03/09/2018 8:32 AM CDT) Only the most recent of 2 results within the time period is included. Glucose 145 (H) 70 - 105 mg/dL [facility] Specimen Blood Narrative Performed At If last glucose was less than 500, may do bedside glucose instead of serum [facility] glucose. [facility] Performing Organization Address [facility] [place] [address] [phone] [place] [address] * Urinalysis w/ Microscopic (03/09/2018 7:20 AM CDT) Color, UA Yellow [facility] Clarity, UA Clear [facility] Specific [place], UA 1.024 1.001 - 1.035 [facility] pH, UA 6.0 5.0 - 8.0 [facility] Protein, UA 30 mg/dL (A) Negative [facility] Glucose, UA >1000 mg/dL (A) Negative [facility] Ketones, UA >150 mg/dL (A) Negative [facility] Bilirubin, UA Negative Negative [facility] Blood, UA Negative Negative [facility] Nitrite, UA Negative Negative [facility] Leukocytes, UA Moderate (A) Negative [facility] Urobilinogen, UA 0.2 0.2 - 1.0 mg/dL [facility] RBC, UA <1 /HPF [facility] WBC, UA 52 /HPF [facility] Mucus Occasional [facility] Squam Epithel, UA <1 /HPF [facility] Casts 4 /LPF [facility] Specimen Source [facility] Specimen Urine Performing Organization Address City/[facility]/Zipcode Phone Number [address] * Urine culture (03/09/2018 7:20 AM CDT) Result No growth [facility] Specimen Urine Performing Organization Address City/[facility]/Zipcode Phone Number [address] * Potassium (03/09/2018 6:54 AM CDT) Only the most recent of 2 results within the time period is included. Potassium 3.9Comment: Specimen 3.5 - 5.1 meq/L [facility] moderately hemolyzed [facility] Specimen Blood Performing Organization Address City/[facility]/Zipcode Phone Number [address] * Procalcitonin (03/09/2018 6:19 AM CDT) Procalcitonin <0.05 <0.05 ng/mL [facility] Specimen Blood Narrative Performed At SEPSIS RISK (ng/mL) [facility] Low:0.05-0.50 [facility] Intermediate: 0.51-2.00 High: >=2.01 Performing Organization Address City/[facility]/Zipcode Phone Number [facility] [address] [place] [address] MEDICAL CENTER * ECG 12 lead (03/09/2018 3:44 AM CDT) Only the most recent of 2 results within the time period is included. Specimen Narrative Performed At Ventricular Rate 81 BPM [facility] Atrial Rate 81 BPM P-R Interval 112 ms QRS Duration 90 ms Q-T Interval 358 ms QTC Calculation(Bazett) 415 ms P [place] 60 degrees R [place] 58 degrees T [place] 20 degrees Normal sinus rhythm Nonspecific T [...] 358 ms QTC Calculation(Bazett) 415 ms P [place] 60 degrees R [place] 58 degrees T [place] 20 degrees Normal sinus rhythm Nonspecific T wave abnormality Abnormal ECG When compared with ECG of 09-MAR-2018 03:43, No significant change was found Confirmed by MD MOFFETT J. ALBERTO ([id number]) on 03/09/2018 11:28:51 AM Performing Organization Address City/[facility] Phone Number [employer] * Blood gas, venous (03/09/2018 3:15 AM CDT) pH, Julio 7.33 7.32 - 7.42 [facility] pCO2, Julio 30 (L) 41 - [address] [facility] pO2, Julio 172 (H) 25 - [address] [facility] O2 Sat, Julio 99.1 (H) 40.0 - 70.0 % [facility] HCO3, Julio 15 (L) 21 - 29 mmol/L [facility] Base Excess, Julio -9.0 (L) -2.0 - 3.0 mmol/L [facility] Patient Temperature 36.[address] [facility] FIO2 21.0 % [facility] Specimen Blood Performing Organization Address [facility] Phone Number [address] * Blood culture #2 (03/09/2018 3:01 AM CDT) Only the most recent of 2 results within the time period is included. Result No growth in [address] [facility] Specimen Blood Performing Organization Address [facility] Phone Number [address] * Type and screen, automated (03/09/2018 2:49 AM CDT) ABO/RH AUTOMATED (BEAKER) O POSITIVE [facility] Ab Scrn NEGATIVE [facility] Specimen Blood Performing Organization Address [facility] Phone Number [address] * TSH/Free T4 If Indicated (03/09/2018 2:44 AM CDT) TSH 0.25 (L) 0.35 - 4.94 uIU/mL [facility] Specimen Blood Performing Organization Address [facility] Phone Number [address] * Lactic acid, venous, whole blood (03/09/2018 2:44 AM CDT) Lactate, Venous 1.7Comment: Specimen slightly 0.5 - 2.2 mmol/L [facility] hemolyzed [facility] Specimen Blood Narrative Performed At Effective 03/14/2016: Units/Reference Range Change [facility] New: 0.5-2.2 mmol/LPrevious: 5-20 mg/dL [facility] Performing Organization Address City/[facility] [place] [address] [phone] [place] [address] * T4, free (03/09/2018 2:44 AM CDT) Free T4 1.22 0.70 - 1.48 ng/dL [facility] Specimen Blood Performing Organization Address City/[facility] [place] [address] [phone] * Hemoglobin A1c (03/09/2018 2:41 AM CDT) Hemoglobin A1C 11.3 (H) 4.3 - 6.1 % [facility] Specimen Blood Performing Organization Address [facility] [place] [address] [phone] [place] [address] * Ketone, blood (03/09/2018 2:41 AM CDT) Ketones, Blood 4.8 (H) <0.4 mmol/L [facility] Specimen Blood Performing Organization Address [facility] [place] [phone] [place] [address] * Troponin I (03/09/2018 2:38 AM CDT) Troponin I <0.01 0.00 - 0.03 ng/mL [facility] Specimen Blood Narrative Performed At Troponin I (TnI) levels must be interpreted in the context of the presenting [facility] symptoms and the clinical findings. Elevated TnI levels indicate myocardial [facility] damage, but are not specific [...] instead of serum glucose. Performing Organization Address City/[facility] Phone Number [address] [place] [address] [facility] * Lipase (03/09/2018 2:38 AM CDT) Lipase <4 (L) 8 - 78 U/L [facility] Specimen Blood Narrative Performed At If last glucose was less than 500, may do bedside glucose instead of serum [facility] glucose. [facility] Performing Organization Address City/[facility] Phone Number [facility] [address] [place] [address] [facility] * Hepatic function panel (03/09/2018 2:38 AM CDT) Protein, Total 8.2 6.0 - 8.3 gm/dL [facility] Albumin 4.8 3.5 - 5.0 g/dL [facility] Total Bilirubin 0.9 0.2 - 1.2 mg/dL [facility] Bilirubin, Direct 0.4 0.1 - 0.5 mg/dL [facility] Alkaline Phosphatase 96 40 - 150 U/L [facility] AST 14 5 - 34 U/L [facility] ALT 12 6 - 55 U/L [facility] Specimen Blood Narrative Performed At If last glucose was less than 500, may do bedside glucose instead of serum [facility] glucose. [facility] Performing Organization Address City/[facility] Phone Number [facility] [address] [place], [place] [id number] [facility] after 03/01/2018 Insurance Payer Benefit Subscriber ID Type Phone Address Plan / Group BLUE CROSS[employer] BCBS PPO xxxxxxxxxxxx PPO [phone] [address] [place] [address] CHOICE Advance Directives For more information, please contact: [address] [address] Date Inactivated Comments Code Status Date Activated 03/11/2018 4:41 PM Full Code 03/09/2018 1:27 AM This code status was determined by: Patient
[2019-03-02] MEDS ORDERED: SODIUM CHLORIDE 0.9% 1000ML 1,000 ML ONE ×2 (22:07→22:08)
[2019-03-02] MEDS ORDERED: SODIUM CHLORIDE 0.9% 1000ML 1,000 ML IV ONE ×2 (22:15)
[2019-03-02 22:36] LABS: AMPHETAMINES SCREEN,URINE NEGATIVE (NEGATIVE); BENZODIAZEPINES SCREEN,URINE NEGATIVE (NEGATIVE); PHENCYCLIDINE SCREEN,URINE NEGATIVE (NEGATIVE)
[2019-03-02 22:41] LABS: CLARITY,URINE CLEAR (CLEAR); COLOR,URINE YELLOW (YELLOW); LEUKOCYTE ESTERASE ,URINE NEGATIVE (NEGATIVE); NITRITE,URINE NEGATIVE (NEGATIVE)
[2019-03-02 22:42] LABS: BILIRUBIN,URINE NEGATIVE (NEGATIVE); KETONES,URINE 3+ (NEGATIVE); PROTEIN,URINE DIPSTICK 1+ (NEGATIVE); URINE UROBILINOGEN 0.2 mg/dL (0.2 - 1)
[2019-03-02 23:09] LABS: BASOPHILS % 0.1 % (0.0-1.0); HEMATOCRIT 45.5 % (38.2-49.6); HEMOGLOBIN 15.6 g/dL (14.0-18.0); LYMPHOCYTES # (AUTO) 1.7 (1.0-3.2); LYMPHOCYTES % 23.1 % (18.0-39.1); MEAN CORPUSCULAR HEMOGLOBIN 31.3 pg (28-32); MEAN CORPUSCULAR HGB CONC 34.3 g/dL (31-35); MEAN CORPUSCULAR VOLUME 91.4 fL (81-99); MONOCYTES # (AUTO) 0.3 (0.2-0.8); MONOCYTES % 3.8 % (4.4-11.3); NEUTROPHILS # (AUTO) 5.3 (2.1-6.9); NEUTROPHILS % 72.7 % (38.7-80.0); PLATELET COUNT 331 x10e3/uL (140-360); RED BLOOD COUNT 4.98 x10e6/uL (4.3-5.7)
[2019-03-02 23:10] LABS: BACTERIA,URINE FEW /HPF; EPITHELIAL CELLS,URINE FEW /LPF; RBC,URINE >50 /HPF (0-5)
[2019-03-02 23:26] LABS: ALANINE AMINOTRANSFERASE 19 IU/L (0-55); ALKALINE PHOSPHATASE 103 IU/L (40-150); ANION GAP 26.9 mmol/L (8-16); BLOOD UREA NITROGEN 16 mg/dL (7-26); BUN/CREATININE RATIO 18 (6-25); CARBON DIOXIDE 17 mmol/L (22-29); CHLORIDE 92 mmol/L (98-107); CREATININE, SERUM 0.87 mg/dL (0.72-1.25); EST GLOMERULAR FILTRATION RATE > 60 ML/MIN (60-); GLUCOSE 281 mg/dL (74-118); POTASSIUM 3.9 mmol/L (3.5-5.1); SODIUM 132 mmol/L (136-145)
[2019-03-02 23:27] LABS: AMYLASE 17 U/L (25-125); LIPASE 5 U/L (8-78)
[2019-03-02 23:28] LABS: CALCIUM 9.8 mg/dL (8.4-10.2)
[2019-03-02] MEDS ORDERED: AZITHROMYCIN 250 MG TAB PO ONE (23:30)
[2019-03-02] MEDS ORDERED: DEXTROSE 5%/0.45% SOD CHL 1,000 ML IV SCH (23:52)
[2019-03-02] MEDS ORDERED: SODIUM CHLORIDE 0.9% 1000ML 1,000 ML IV SCH (23:52)
[2019-03-03] MEDS ORDERED: MAGNESIUM SULF 1GRAM/DEXTROSE 100 ML IV PRN
[2019-03-03] MEDS ORDERED: SODIUM CHLORIDE 0.9% 1000ML 1,000 ML IV SCH ×2
[2019-03-03] MEDS ORDERED: POTASSIUM CHLORIDE 20MEQ/100ML 200 ML IV PRN
[2019-03-03] MEDS ORDERED: INSULIN REGULAR, HUMAN 3ML VL 100 UNIT in SODIUM CHLORIDE 0.9% 99 ML IV SCH ×2
[2019-03-03] MEDS ORDERED: PROMETHAZINE HCL (IM) 25 MG/ML VIAL IM ONE
[2019-03-03 01:33] LABS: ABG PCO2 33 mmHg (41-51)
[2019-03-03 01:34] LABS: ABG HCO3 16 mmol/L (23-28); ABG PO2 108 mmHg (80-105)
[2019-03-03 03:37] LABS: ANION GAP 17.6 mmol/L (8-16); BLOOD UREA NITROGEN 12 mg/dL (7-26); BUN/CREATININE RATIO 16 (6-25); CALCIUM 8.4 mg/dL (8.4-10.2); CARBON DIOXIDE 16 mmol/L (22-29); CHLORIDE 102 mmol/L (98-107); CREATININE, SERUM 0.73 mg/dL (0.72-1.25); EST GLOMERULAR FILTRATION RATE > 60 ML/MIN (60-); GLUCOSE 202 mg/dL (74-118); MAGNESIUM 1.9 MG/DL (1.3-2.1); POTASSIUM 3.6 mmol/L (3.5-5.1); SODIUM 132 mmol/L (136-145)
--- NOTE | 2019-03-03 04:13 | NUR ---
bg 156 at bedside, titrated insulin drip down to 3u/hr then started d5 1/2ns at 100cc hr
[2019-03-03] MEDS ORDERED: CEFTRIAXONE SOD 250 MG VIAL IM ONE (04:20)
[2019-03-03] MEDS ORDERED: AZITHROMYCIN 250 MG TAB PO ONE (04:21)
[2019-03-03] MEDS ORDERED: CEFTRIAXONE SOD 250 MG VIAL ONE (05:32)
[2019-03-03] MEDS: CEFTRIAXONE SOD 250 MG VIAL INJ ONE ×2 (05:37→05:39)
--- NOTE | 2019-03-03 07:07 | NUR ---
140BG, INFORMED DR BRADLEY, GIVEN ORDERS TO TURN OFF INSULIN DRIP. AWAITING RESULTS FROM BMP AND MAGNESIUM THAT WAS JUST DRAWN. REPORT GIVEN IN FULL TO RENALDO MONROE, INSULIN DRIP TURNED OFF, D51/2NS RUNNING AT 125CC/HR
[2019-03-03 07:27] LABS: BLOOD UREA NITROGEN 11 mg/dL (7-26); BUN/CREATININE RATIO 15 (6-25); CALCIUM 8.4 mg/dL (8.4-10.2); CARBON DIOXIDE 22 mmol/L (22-29); CHLORIDE 101 mmol/L (98-107); CREATININE, SERUM 0.72 mg/dL (0.72-1.25); EST GLOMERULAR FILTRATION RATE > 60 ML/MIN (60-); GLUCOSE 142 mg/dL (74-118); MAGNESIUM 2.1 MG/DL (1.3-2.1); SODIUM 131 mmol/L (136-145)
[2019-03-03] MEDS ORDERED: ONDANSETRON HCL INJ 2MG/ML 2ML 2 MG/ML VIAL IV STA (08:04)
[2019-03-03 08:11] VITALS: BP 147/92
== END 2019-03-03 08:28 | disposition home or self-care (01) ==
LOC: ER 19:48
DX: R11.2 Nausea with vomiting, unspecified (principal); E10.10 Type 1 diabetes mellitus with ketoacidosis without coma; E10.65 Type 1 diabetes mellitus with hyperglycemia
CPT/HCPCS: 36415; 36600; 80048; 80053; 80307; 81001; 82150; 82805; 82948; 83690; 83735; 85025; 99284; J0696; J1817; J2405; J7030 ×2; J7050

== ENCOUNTER 2019-05-19 08:44 | Inpatient (IN) | payer OTHER ==
[~2019-05-19] VITALS: Ht 177.8 cm; Wt 72.6 kg
[2019-05-19] VITALS (12 sets, daily range): BP systolic 109–167; BP diastolic 68–103
--- OUTSIDE RECORDS SUMMARY | 2019-05-19 08:48 | XMS REPORT | Clinical Summary ---
Author Author DANA [facility] Address Unknown Phone Unavailable Care Team Providers Care Scrum Product Owner Name Role Phone Sharpless PCP Allergies No [...] mellitus subcutaneousl y 2 (two) times daily. Active Problems Problem Noted Date DKA (diabetic ketoacidoses) 03/09/2018 High anion gap metabolic acidosis 03/09/2018 Hyperglycemia 03/09/2018 Family History Medical History Relation Name Comments [...] travel history available. Last Filed Vital Signs Not on file Plan of Treatment Not on file Results Not on fileafter 05/18/2018 Insurance Payer Benefit Subscriber ID Type Phone Address Plan / Group BLUE CROSS[employer] BCBS PPO xxxxxxxxxxxx PPO [phone] [address] [place] [address] CHOICE Advance Directives For more information, please contact: [facility] [address] [place] [address] Date Inactivated Comments Code Status Date Activated 03/11/2018 4:41 PM Full Code 03/09/2018 1:27 AM This code status was determined by: Patient
[2019-05-19] MEDS ORDERED: SODIUM CHLORIDE 0.9% 1000ML 1,000 ML IV SCH ×5 (09:15→11:00)
--- NOTE | 2019-05-19 09:30 | NUR ---
PATIENT TO ROOM 7
--- NOTE | 2019-05-19 09:52 | NUR ---
MULTIPLE IV STICKS UNSUCCESFUL. LAB CALLED TO DRAW BLOOD WORK
[2019-05-19 10:02] LABS: ABG HCO3 2 mmol/L (23-28); ABG PCO2 9 mmHg (41-51); ABG PH 6.97 (7.31-7.41); ABG PO2 147 mmHg (80-105)
--- NOTE | 2019-05-19 10:04 | NUR ---
DR. MIRANDA AT BEDSIDE UPDATING PATIENT ON STATUS AND LAB RESULTS
[2019-05-19 10:13] LABS: BASOPHILS # (AUTO) 0.1 (0.0-0.1); BASOPHILS % 0.4 % (0.0-1.0); EOSINOPHILS # (AUTO) 0.1 (0.0-0.4); EOSINOPHILS % 0.3 % (0.0-6.0); HEMATOCRIT 55.6 % (38.2-49.6); HEMOGLOBIN 19.2 g/dL (14.0-18.0); LYMPHOCYTES # (AUTO) 0.7 (1.0-3.2); LYMPHOCYTES % 3.1 % (18.0-39.1); MEAN CORPUSCULAR HEMOGLOBIN 31.1 pg (28-32); MEAN CORPUSCULAR HGB CONC 34.5 g/dL (31-35); MEAN CORPUSCULAR VOLUME 90.1 fL (81-99); MONOCYTES # (AUTO) 1.5 (0.2-0.8); MONOCYTES % 6.8 % (4.4-11.3); NEUTROPHILS # (AUTO) 19.9 (2.1-6.9); NEUTROPHILS % 88.6 % (38.7-80.0); PLATELET COUNT 273 x10e3/uL (140-360); RED BLOOD COUNT 6.17 x10e6/uL (4.3-5.7); RED CELL DISTRIBUTION WIDTH 11.3 % (11.7-14.4)
--- NOTE | 2019-05-19 10:17 | Diagnostic Imaging Report ---
EXAMINATION: CHEST SINGLE (PORTABLE) INDICATION: Shortness of breath COMPARISON: FINDINGS: TUBES and LINES: None. LUNGS: The lung volumes are normal. No focal consolidation or pulmonary edema. PLEURA: No pleural effusion or pneumothorax. HEART AND MEDIASTINUM: The cardiomediastinal silhouette is normal in size and contour. BONES AND SOFT TISSUES: No acute fracture or dislocation. UPPER ABDOMEN: No free air under the diaphragm. IMPRESSION: No focal pneumonia or pulmonary edema. Signed by: Valdo Cordoba MD on 05/19/2019 10:14 AM
[2019-05-19 10:19] LABS: INR 1.12; PROTHROMBIN TIME 14.9 seconds (11.9-14.5)
[2019-05-19 10:20] LABS: PARTIAL THROMBOPLASTIN TIME 31.5 seconds (23.8-35.5)
[2019-05-19 10:26] LABS: ALBUMIN 4.6 g/dL (3.5-5.0); ALBUMIN/GLOBULIN RATIO 1.2 (0.8-2.0); ANION GAP 34.8 mmol/L (8-16); CALCIUM 9.4 mg/dL (8.4-10.2); CREATININE, SERUM 1.92 mg/dL (0.72-1.25); POTASSIUM 5.8 mmol/L (3.5-5.1)
[2019-05-19 10:34] LABS: CREATINE KINASE MB 1.6 ng/mL (0-5.0)
[2019-05-19 10:59] LABS: AMPHETAMINES SCREEN,URINE NEGATIVE (NEGATIVE); BENZODIAZEPINES SCREEN,URINE NEGATIVE (NEGATIVE); PHENCYCLIDINE SCREEN,URINE NEGATIVE (NEGATIVE)
[2019-05-19 11:17] LABS: BILIRUBIN,URINE NEGATIVE (NEGATIVE); CLARITY,URINE CLEAR (CLEAR); COLOR,URINE YELLOW (YELLOW); LEUKOCYTE ESTERASE ,URINE NEGATIVE (NEGATIVE); NITRITE,URINE NEGATIVE (NEGATIVE); PROTEIN,URINE DIPSTICK 1+ (NEGATIVE); URINE UROBILINOGEN 0.2 mg/dL (0.2 - 1)
--- NOTE | 2019-05-19 11:32 | NUR ---
BEDSIDE REPORT TO MARITZA Reddy 4TH LITER NORMAL SALINE INFUSING. SHE WILL CHECK BLOOD SUGAR PER DR. MIRANDA AFTER COMPLETED
--- NOTE | 2019-05-19 11:32 | NUR ---
REC'D BEDSIDE REPORT FOR CONTINUITY OF CARE.
[2019-05-19 11:36] LABS: KETONES,URINE 2+ (NEGATIVE)
[2019-05-19 11:38] LABS: EPITHELIAL CELLS,URINE RARE /LPF
[2019-05-19 11:48] LABS: BACTERIA,URINE FEW /HPF; TRANSITIONAL EPI CELLS,URINE FEW
--- NOTE | 2019-05-19 12:00 | NUR ---
BLOOD SUGAR--436. DR MIRANDA INFORMED
[2019-05-19] MEDS ORDERED: MAGNESIUM SULF 1GRAM/DEXTROSE 100 ML IV PRN (12:15)
[2019-05-19] MEDS: SODIUM CHLORIDE 0.9% 1000ML 1,000 ML IV SCH ×3 (12:15→19:14)
[2019-05-19] MEDS ORDERED: POTASSIUM CHLORIDE 20MEQ/100ML 200 ML IV PRN (12:15)
[2019-05-19] MEDS: INSULIN REGULAR, HUMAN 3ML VL 100 UNIT in SODIUM CHLORIDE 0.9% 99 ML IV SCH ×2 (13:06)
--- NOTE | 2019-05-19 13:26 | NUR ---
INSULIN DRIP STARTED PER PROTOCOL; BLOOD SUGAR 386
[2019-05-19] MEDS ORDERED: METOCLOPRAMIDE HCL 10 MG/2ML VIAL IV PRN (14:00)
--- OUTSIDE RECORDS SUMMARY | 2019-05-19 14:06 | XMS REPORT | Clinical Summary ---
Author Author DANA [facility] Address Unknown Phone Unavailable Care Team Providers Care Vice President Network Development Name Role Phone Sharpless PCP Allergies No [...] BLUE CROSS/BLUE SHIELD BCBS PPO xxxxxxxxxxxx PPO [phone] [address] [place] [address] CHOICE Advance Directives For more information, please contact: [facility] [address] [place] [address] Date Inactivated Comments Code Status Date Activated 03/11/2018 4:41 PM Full Code 03/09/2018 1:27 AM This code status was determined by: Patient
[2019-05-19 14:22] LABS: ANION GAP 27.7 mmol/L (8-16); BLOOD UREA NITROGEN 19 mg/dL (7-26); BUN/CREATININE RATIO 14 (6-25); CALCIUM 8.1 mg/dL (8.4-10.2); CHLORIDE 96 mmol/L (98-107); CREATININE, SERUM 1.35 mg/dL (0.72-1.25); EST GLOMERULAR FILTRATION RATE > 60 ML/MIN (60-); POTASSIUM 5.7 mmol/L (3.5-5.1); SODIUM 123 mmol/L (136-145)
[2019-05-19 14:26] LABS: CARBON DIOXIDE 5 mmol/L (22-29); GLUCOSE 441 mg/dL (74-118)
--- NOTE | 2019-05-19 14:26 | NUR ---
lab called with critical labs - CO2 5 blood glucose 441 nurse/md notified
[2019-05-19] MEDS ORDERED: PNEUMOCOCCAL VACCINE POLYVALENT 23 MCG/0.5 ML VIAL IM SCH (16:00)
--- NOTE | 2019-05-19 16:26 | NUR ---
patient admitted to icu room 189. patient lethargic, following commands. has strong "fruity" breath odor. bp elevated. sinus tach. hr 110 resting in bed. patient stood at side of bed to void in urinal. heart rate increased to 160bpm. called and notified Dr. Caputo of change in vital signs. hr back to 100's within several minutes after lying back in down. new order for elevated bp. patient denies any symptoms from heart rate of blood pressure.
[2019-05-19] MEDS: FAMOTIDINE 20 MG/2 ML VIAL IV SCH (17:21)
[2019-05-19] MEDS: CARVEDILOL 3.125 MG TAB PO SCH (17:21)
[2019-05-19 17:27] LABS: ANION GAP 23.8 mmol/L (8-16); BLOOD UREA NITROGEN 18 mg/dL (7-26); BUN/CREATININE RATIO 15 (6-25); CALCIUM 8.1 mg/dL (8.4-10.2); CHLORIDE 102 mmol/L (98-107); CREATININE, SERUM 1.24 mg/dL (0.72-1.25); EST GLOMERULAR FILTRATION RATE > 60 ML/MIN (60-); GLUCOSE 294 mg/dL (74-118); MAGNESIUM 2.2 MG/DL (1.3-2.1); POTASSIUM 4.8 mmol/L (3.5-5.1); SODIUM 128 mmol/L (136-145)
[2019-05-19 17:29] LABS: CARBON DIOXIDE 7 mmol/L (22-29)
[2019-05-19] MEDS: DEXTROSE 5%/0.45% SOD CHL 1,000 ML IV SCH ×2 (19:13→22:06)
[2019-05-19] MEDS: HEPARIN SOD (PORCINE) 5,000 UNIT/ML VIAL SC SCH (21:00)
[2019-05-19 21:37] LABS: ANION GAP 16.2 mmol/L (8-16); BLOOD UREA NITROGEN 14 mg/dL (7-26); BUN/CREATININE RATIO 13 (6-25); CARBON DIOXIDE 13 mmol/L (22-29); CHLORIDE 103 mmol/L (98-107); CREATININE, SERUM 1.09 mg/dL (0.72-1.25); EST GLOMERULAR FILTRATION RATE > 60 ML/MIN (60-); GLUCOSE 176 mg/dL (74-118); POTASSIUM 4.2 mmol/L (3.5-5.1); SODIUM 128 mmol/L (136-145)
[2019-05-20] VITALS (23 sets, daily range): BP systolic 105–145; BP diastolic 58–103
[2019-05-20] MEDS: SODIUM CHLORIDE 0.9% 1000ML 1,000 ML IV SCH ×4 (00:06→23:21)
[2019-05-20 01:08] LABS: ANION GAP 14.2 mmol/L (8-16); BLOOD UREA NITROGEN 12 mg/dL (7-26); BUN/CREATININE RATIO 11 (6-25); CALCIUM 8.5 mg/dL (8.4-10.2); CARBON DIOXIDE 19 mmol/L (22-29); CHLORIDE 102 mmol/L (98-107); CREATININE, SERUM 1.06 mg/dL (0.72-1.25); EST GLOMERULAR FILTRATION RATE > 60 ML/MIN (60-); GLUCOSE 84 mg/dL (74-118); MAGNESIUM 2.2 MG/DL (1.3-2.1); POTASSIUM 4.2 mmol/L (3.5-5.1); SODIUM 131 mmol/L (136-145)
--- NOTE | 2019-05-20 01:39 | NUR ---
D5-1/2NS INCREASED TO 125 ML/HR
--- NOTE | 2019-05-20 02:51 | NUR ---
FSBS 43, REPEAT 47. PATIENT AWAKE AND ALERT, INSULIN DRIP TURNED OFF AND PATIENT GIVEN ORANGE JUICE AND YULIANA CRACKERS, WILL CONTINUE TO MONITOR
--- NOTE | 2019-05-20 03:28 | NUR ---
FSBS 75, PATIENT REMAINS AWAKE AND ALERT, WILL CONTINUE TO HOLD INSULIN DRIP AND MONITOR
[2019-05-20 05:21] LABS: BASOPHILS % 0.2 % (0.0-1.0); EOSINOPHILS % 0.1 % (0.0-6.0); HEMATOCRIT 40.6 % (38.2-49.6); HEMOGLOBIN 15.3 g/dL (14.0-18.0); LYMPHOCYTES # (AUTO) 1.2 (1.0-3.2); LYMPHOCYTES % 7.1 % (18.0-39.1); MEAN CORPUSCULAR HEMOGLOBIN 31.3 pg (28-32); MEAN CORPUSCULAR HGB CONC 37.7 g/dL (31-35); MONOCYTES # (AUTO) 1.2 (0.2-0.8); MONOCYTES % 7.2 % (4.4-11.3); NEUTROPHILS # (AUTO) 14.1 (2.1-6.9); NEUTROPHILS % 84.7 % (38.7-80.0); PLATELET COUNT 194 x10e3/uL (140-360); RED BLOOD COUNT 4.89 x10e6/uL (4.3-5.7)
[2019-05-20 05:30] LABS: ANION GAP 13.7 mmol/L (8-16); BLOOD UREA NITROGEN 12 mg/dL (7-26); BUN/CREATININE RATIO 15 (6-25); CALCIUM 7.9 mg/dL (8.4-10.2); CARBON DIOXIDE 17 mmol/L (22-29); CHLORIDE 98 mmol/L (98-107); CREATININE, SERUM 0.81 mg/dL (0.72-1.25); EST GLOMERULAR FILTRATION RATE > 60 ML/MIN (60-); GLUCOSE 207 mg/dL (74-118); POTASSIUM 3.7 mmol/L (3.5-5.1); SODIUM 125 mmol/L (136-145)
[2019-05-20] MEDS: INSULIN REGULAR, HUMAN 3ML VL 100 UNIT in SODIUM CHLORIDE 0.9% 99 ML IV SCH ×2 (05:37)
--- NOTE | 2019-05-20 05:39 | NUR ---
BS 207, INSULIN DRIP RESTARTED
[2019-05-20] MEDS: DEXTROSE 5%/0.45% SOD CHL 1,000 ML IV SCH (08:06)
[2019-05-20 08:35] LABS: ANION GAP 9.1 mmol/L (8-16); BLOOD UREA NITROGEN 11 mg/dL (7-26); BUN/CREATININE RATIO 14 (6-25); CALCIUM 7.9 mg/dL (8.4-10.2); CARBON DIOXIDE 22 mmol/L (22-29); CHLORIDE 98 mmol/L (98-107); CREATININE, SERUM 0.78 mg/dL (0.72-1.25); EST GLOMERULAR FILTRATION RATE > 60 ML/MIN (60-); GLUCOSE 185 mg/dL (74-118); MAGNESIUM 2.3 MG/DL (1.3-2.1); POTASSIUM 3.1 mmol/L (3.5-5.1); SODIUM 126 mmol/L (136-145)
[2019-05-20] MEDS ORDERED: INSULIN GLARGINE 100 UNITS/ML VIAL SQ SCH (09:15)
[2019-05-20] MEDS ORDERED: INSULIN GLARGINE 100 UNITS/ML VIAL SQ ONE ×2 (09:30→09:45)
[2019-05-20] MEDS: FAMOTIDINE 20 MG/2 ML VIAL IV SCH (10:18)
[2019-05-20] MEDS: CARVEDILOL 3.125 MG TAB PO SCH ×2 (10:19→18:38)
[2019-05-20] MEDS: HEPARIN SOD (PORCINE) 5,000 UNIT/ML VIAL SC SCH ×2 (10:20→21:05)
[2019-05-20] MEDS ORDERED: POTASSIUM CHLORIDE 20 MEQ TAB CR PO ONE (12:00)
--- NOTE | 2019-05-20 14:37 | NUR ---
Nutrition Screen Note RD Recommendation for Physician: -Continue ADA diet as ordered -Obtain HbA1c -Referral for outpatient CDE for further education and monitoring -RD provided diet education on gastroparesis as requested by patient Plan of Care: RD following, monitor for tolerance and adequacy, diet education Nutrition reason for involvement: Nutrition risk trigger MST Primary Diagnose(s): DKA PMH: Type 1 DM Ht: 70in Wt: 154.25lb BMI: 22.1kg/m2 IBW: 166lb +/- 10% RD Assessment: (05/20) Chart reviewed. Meds and labs reviewed. 24 yo male, who was admitted to the hospital with DKA. Pt has been dx with Type 1 DM since 2011. Pt is well known to me from his previous readmissions for DKA. Pt received several diabetes educations in the past. Visited pt in the room. Pt reported issues with getting the appropriate medication. Tolerating current diet without any nausea or vomiting. LBM 7/8. Weight has been stable. No chewing or swallowing difficulty noted. Pt reported some issues with eating due to gastroparesis. RD provided tips and handouts on gastroparesis. All questions have been answered. Current Diet: ADA diet Malnutrition Evaluation (05/20/2019) The patient does not meet criteria for a specified degree of malnutrition at this time. Will re-evaluate at follow-up as appropriate. Diet Education Needs Assessment: Diet education indicated, pt is agreeable with plan. Learner(s): pt Barriers: not compliant with diet and medications Cultural/Language Modifications: none Readiness: acceptance Method: explanation, handouts Topics: Gastroparesis nutrition therapy Understanding/Compliance: Pt understood. All questions have been answered. Rec pt to follow up with outpatient CDE if possible. Pt is agreeable with plan. Nutrition Care Level: low Signed: Brittnee Mandel, MS, RD, LD
[2019-05-20] MEDS ORDERED: DEXTROSE 50% SYRINGE 50 ML IV PRN (18:30)
[2019-05-20] MEDS: ONDANSETRON HCL INJ 2MG/ML 2ML 2 MG/ML VIAL IV PRN ×2 (18:56→23:57)
--- NOTE | 2019-05-20 19:00 | NUR ---
Report received. Assumed care. Assessment done. See interventions. IV NS @ 75ml/hr. On room air with O2 sats 10%.
[2019-05-20] MEDS: INSULIN LISPRO 100 UNIT/1 ML 3ML VIAL SQ SCH (21:05)
[2019-05-20] MEDS ORDERED: SODIUM CHLORIDE 0.9% 1000ML 1,000 ML ONE ×2 (23:19→23:21)
--- NOTE | 2019-05-20 23:57 | NUR ---
Medicated for c/o nausea.
[2019-05-21] VITALS (13 sets, daily range): BP systolic 99–143; BP diastolic 55–93
[2019-05-21 05:33] LABS: ANION GAP 14.1 mmol/L (8-16); BLOOD UREA NITROGEN 8 mg/dL (7-26); BUN/CREATININE RATIO 11 (6-25); CALCIUM 7.9 mg/dL (8.4-10.2); CARBON DIOXIDE 27 mmol/L (22-29); CHLORIDE 92 mmol/L (98-107); EST GLOMERULAR FILTRATION RATE > 60 ML/MIN (60-); GLUCOSE 165 mg/dL (74-118); MAGNESIUM 2.3 MG/DL (1.3-2.1); POTASSIUM 3.1 mmol/L (3.5-5.1); SODIUM 130 mmol/L (136-145)
[2019-05-21] MEDS: INSULIN LISPRO 100 UNIT/1 ML 3ML VIAL SQ SCH (07:30)
[2019-05-21] MEDS ORDERED: POTASSIUM CHLORIDE 20 MEQ TAB CR PO STA (07:45)
[2019-05-21] MEDS: CARVEDILOL 3.125 MG TAB PO SCH (08:25)
[2019-05-21] MEDS: HEPARIN SOD (PORCINE) 5,000 UNIT/ML VIAL SC SCH (08:25)
[2019-05-21] MEDS ORDERED: POTASSIUM CHLORIDE 20 MEQ TAB CR PO ONE (10:00)
--- NOTE | 2019-05-21 10:20 | Discharge Summary ---
PRIMARY CARE DOCTOR: Dr. Abhijit Shultz. FINAL DIAGNOSIS: Diabetic ketoacidosis, resolved. SECONDARY DIAGNOSES: 1. Gastroparesis. 2. Acute kidney injury, resolved. CONSULTANTS: None. PROCEDURES/STUDIES PERFORMED: None. HISTORY: Per H and P. HOSPITAL COURSE: The patient was put on insulin drip. His anion gap closed. The patient was started on Lantus and diet. His acute renal failure resolved. He received heparin subcu for chemical DVT prophylaxis. If the patient is tolerating his lunch fine today, then he will be discharged. The patient will follow up with his primary care doctor in one week. I have also updated his primary care doctor about this hospitalization. The patient was seen and examined today. It took 32 minutes total to discharge this patient. CONDITION ON DISCHARGE: Improved. DISCHARGE MEDICATIONS: Please see medication reconciliation form. Yiching MD NISH Hampton/ESMER /[id number] cc: [facility]
[2019-05-21] MEDS ORDERED: PNEUMOCOCCAL VACCINE POLYVALENT 23 MCG/0.5 ML VIAL IM SCH (11:30)
== END 2019-05-21 12:10 | disposition home or self-care (01) | DRG 638 ==
LOC: ER 08:44 → ERHOLD 13:54 → ICU 15:07
PROVIDERS: ADMIT Internal Medicine; ATTEND Internal Medicine
PROC: 3E0234Z Introduction of Serum, Toxoid and Vaccine into Muscle, Percutaneous Approach (ICD-10-PCS; principal; 2019-05-19)
DX: E10.10 Type 1 diabetes mellitus with ketoacidosis without coma (principal); N17.9 Acute kidney failure, unspecified; E87.1 Hypo-osmolality and hyponatremia; Z79.4 Long term (current) use of insulin; E10.43 Type 1 diabetes mellitus with diabetic autonomic (poly)neuropathy; K31.84 Gastroparesis; E87.5 Hyperkalemia; Z23 Encounter for immunization
CPT/HCPCS: 36415; 36600; 71045; 80048; 80053; 80307; 81001; 82550; 82553; 82805; 82948; 83735; 83880; 84443; 84484; 85025; 85610; 85730; 90732; 93005; 96360; 96372; 99284; J1644; J1815; J1817; J2405; J7030; J7050

== ENCOUNTER 2019-06-22 15:42 | Inpatient (IN) | payer OTHER ==
[~2019-06-22] VITALS: Ht 175.3 cm; Wt 65.9 kg
--- OUTSIDE RECORDS SUMMARY | 2019-06-22 15:44 | XMS REPORT | Clinical Summary ---
Author Author DANA [facility] Address Unknown Phone Unavailable Care Team Providers Care Fixed Capital Clerk Name Role Phone Sharpless PCP Allergies No [...] Not on file Results Not on fileafter 06/21/2018 Insurance Payer Benefit Subscriber ID Type Phone Address Plan / Group BLUE CROSS/BLUE SHIELD BCBS PPO xxxxxxxxxxxx PPO [phone] [address] [place] [address] CHOICE Advance Directives For more information, please contact: [facility] [place], [place] [address] [place] [address] Date Inactivated Comments Code Status Date Activated 03/11/2018 4:41 PM Full Code 03/09/2018 1:27 AM This code status was determined by: Patient
[2019-06-22] MEDS ORDERED: ONDANSETRON HCL INJ 2MG/ML 2ML 2 MG/ML VIAL IV ONE (16:25)
[2019-06-22] MEDS ORDERED: SODIUM CHLORIDE 0.9% 1000ML 1,000 ML IV STA ×2 (16:25→16:28)
[2019-06-22] MEDS ORDERED: INSULIN REGULAR, HUMAN 3ML VL 100 UNIT in SODIUM CHLORIDE 0.9% 100 ML IV SCH ×4 (16:45→17:00)
[2019-06-22] MEDS ORDERED: MAGNESIUM SULF 1GRAM/DEXTROSE 100 ML IV PRN (16:45)
[2019-06-22] MEDS ORDERED: POTASSIUM CHLORIDE 20MEQ/100ML 200 ML IV PRN (16:45)
[2019-06-22] MEDS ORDERED: INSULIN REGULAR, HUMAN 100 UNIT/1 ML 3ML VIAL IV ONE (16:45)
[2019-06-22 18:12] LABS: BASOPHILS % 0.2 % (0.0-1.0); HEMATOCRIT 51.7 % (38.2-49.6); HEMOGLOBIN 19.6 g/dL (14.0-18.0); LYMPHOCYTES # (AUTO) 1.4 (1.0-3.2); LYMPHOCYTES % 13.9 % (18.0-39.1); MEAN CORPUSCULAR HEMOGLOBIN 31.3 pg (28-32); MEAN CORPUSCULAR HGB CONC 37.9 g/dL (31-35); MEAN CORPUSCULAR VOLUME 82.6 fL (81-99); MONOCYTES # (AUTO) 0.4 (0.2-0.8); MONOCYTES % 3.8 % (4.4-11.3); NEUTROPHILS # (AUTO) 8.1 (2.1-6.9); NEUTROPHILS % 81.4 % (38.7-80.0); PLATELET COUNT 297 x10e3/uL (140-360); RED BLOOD COUNT 6.26 x10e6/uL (4.3-5.7)
[2019-06-22 18:42] LABS: INR 1.12; PARTIAL THROMBOPLASTIN TIME 29.4 seconds (23.8-35.5); PROTHROMBIN TIME 14.9 seconds (11.9-14.5)
[2019-06-22 18:54] LABS: ALANINE AMINOTRANSFERASE 13 IU/L (0-55); ALBUMIN 4.2 g/dL (3.5-5.0); ALBUMIN/GLOBULIN RATIO 1.5 (0.8-2.0); ALKALINE PHOSPHATASE 98 IU/L (40-150); AMYLASE 15 U/L (25-125); ANION GAP 29.4 mmol/L (8-16); BLOOD UREA NITROGEN 13 mg/dL (7-26); BUN/CREATININE RATIO 12 (6-25); CALCIUM 8.4 mg/dL (8.4-10.2); CHLORIDE 92 mmol/L (98-107); CREATINE KINASE 24 IU/L (30-200); EST GLOMERULAR FILTRATION RATE > 60 ML/MIN (60-); GLUCOSE 392 mg/dL (74-118); MAGNESIUM 1.7 MG/DL (1.3-2.1); POTASSIUM 3.4 mmol/L (3.5-5.1); SODIUM 125 mmol/L (136-145)
[2019-06-22 18:57] LABS: LIPASE < 4 U/L (8-78)
[2019-06-22 18:58] LABS: CARBON DIOXIDE 7 mmol/L (22-29)
--- NOTE | 2019-06-22 19:22 | Diagnostic Imaging Report ---
EXAM: CHEST SINGLE (PORTABLE) DATE: 06/22/2019 4:25 PM INDICATION: ^N/V ? DKA ^[id number] ^[id number] COMPARISON: Chest x-ray, 05/19/2019 FINDINGS: Lines and tubes: None Heart size normal. No focal pulmonary opacity, pleural effusion or pneumothorax. Upper abdomen unremarkable. No acute bony abnormality. IMPRESSION: No evidence for acute disease. Signed by: Dr. Domenic Darling M.D. on 06/22/2019 7:18 PM
[2019-06-22 19:38] LABS: BILIRUBIN,URINE NEGATIVE (NEGATIVE); CLARITY,URINE SL CLOUDY (CLEAR); COLOR,URINE YELLOW (YELLOW); KETONES,URINE 2+ (NEGATIVE); LEUKOCYTE ESTERASE ,URINE NEGATIVE (NEGATIVE); NITRITE,URINE NEGATIVE (NEGATIVE); PROTEIN,URINE DIPSTICK 1+ (NEGATIVE); URINE UROBILINOGEN 0.2 mg/dL (0.2 - 1)
[2019-06-22] MEDS: SODIUM CHLORIDE 0.9% 1000ML 1,000 ML IV SCH ×2 (19:38→20:45)
[2019-06-22 19:40] LABS: AMPHETAMINES SCREEN,URINE NEGATIVE (NEGATIVE); BENZODIAZEPINES SCREEN,URINE NEGATIVE (NEGATIVE); PHENCYCLIDINE SCREEN,URINE NEGATIVE (NEGATIVE)
[2019-06-22 20:24] LABS: ABG HCO3 5 mmol/L (23-28); ABG PCO2 15 mmHg (41-51); ABG PH 7.16 (7.31-7.41); ABG PO2 125 mmHg (80-105)
[2019-06-22] MEDS ORDERED: PANTOPRAZOLE 40 MG 10ML VIAL IV ONE (20:24)
[2019-06-22] MEDS ORDERED: PROMETHAZINE HCL (IM) 25 MG/ML VIAL IV PRN (20:30)
[2019-06-22] MEDS ORDERED: MORPHINE SULFATE 2 MG/ML SYR 1ML IV PRN (20:30)
--- OUTSIDE RECORDS SUMMARY | 2019-06-22 20:43 | XMS REPORT | Clinical Summary ---
Author Author DANA [facility] Address Unknown Phone Unavailable Care Team Providers Care Millwright Name Role Phone Sharpless PCP Allergies No [...] BLUE CROSS/BLUE SHIELD BCBS PPO xxxxxxxxxxxx PPO [phone] [address] [place] [address] CHOICE Advance Directives For more information, please contact: [facility] [address] [place] [address] Date Inactivated Comments Code Status Date Activated 03/11/2018 4:41 PM Full Code 03/09/2018 1:27 AM This code status was determined by: Patient
[2019-06-22] MEDS ORDERED: PROMETHAZINE 12.5MG/ NACL 0.9% 50 ML IV PRN (20:45)
[2019-06-22 22:00] VITALS: BP 147/96
[2019-06-22 22:31] VITALS: BP 147/96
[2019-06-22 23:00] VITALS: BP 145/101
[2019-06-23] VITALS (11 sets, daily range): BP systolic 125–164; BP diastolic 73–132
[2019-06-23] LABS: BLOOD UREA NITROGEN 11 mg/dL (7-26); BUN/CREATININE RATIO 11 (6-25); CALCIUM 8.6 mg/dL (8.4-10.2); CARBON DIOXIDE 14 mmol/L (22-29); CHLORIDE 96 mmol/L (98-107); CREATININE, SERUM 0.98 mg/dL (0.72-1.25); EST GLOMERULAR FILTRATION RATE > 60 ML/MIN (60-); GLUCOSE 141 mg/dL (74-118); MAGNESIUM 2.2 MG/DL (1.3-2.1); SODIUM 128 mmol/L (136-145)
[2019-06-23] MEDS ORDERED: POTASSIUM CHLORIDE 20MEQ/100ML 100 ML ONE (00:28)
[2019-06-23 00:33] LABS: CREATINE KINASE 43 IU/L (30-200)
[2019-06-23] MEDS: SODIUM CHLORIDE 0.9% 1000ML 1,000 ML IV SCH ×5 (00:45→21:03)
--- NOTE | 2019-06-23 01:00 | NUR ---
Pt refusing IV potassium replacement since it will burn. MD called and order received for PO potassium replacement.
[2019-06-23] MEDS ORDERED: POTASSIUM CHLORIDE 20 MEQ TAB CR PO ONE ×3 (01:13→11:30)
[2019-06-23] MEDS: ONDANSETRON HCL INJ 2MG/ML 2ML 2 MG/ML VIAL IV PRN ×2 (01:16→14:00)
[2019-06-23] MEDS: POTASSIUM CHLORIDE 20 MEQ TAB CR PO PRN ×2 (01:16→08:30)
--- NOTE | 2019-06-23 05:20 | NUR ---
Lab called to notify that 03:30 BMP was hemolyzed. Lab redrawn.
[2019-06-23 05:33] LABS: CREATINE KINASE 32 IU/L (30-200)
[2019-06-23] MEDS: DEXTROSE 5%/0.45% SOD CHL 1,000 ML IV SCH ×2 (05:43)
[2019-06-23 05:52] LABS: ANION GAP 13.2 mmol/L (8-16); BLOOD UREA NITROGEN 10 mg/dL (7-26); BUN/CREATININE RATIO 13 (6-25); CALCIUM 8.2 mg/dL (8.4-10.2); CARBON DIOXIDE 18 mmol/L (22-29); CHLORIDE 95 mmol/L (98-107); CREATININE, SERUM 0.78 mg/dL (0.72-1.25); EST GLOMERULAR FILTRATION RATE > 60 ML/MIN (60-); GLUCOSE 231 mg/dL (74-118); POTASSIUM 3.2 mmol/L (3.5-5.1); SODIUM 123 mmol/L (136-145)
[2019-06-23 05:55] LABS: MAGNESIUM 2.3 MG/DL (1.3-2.1)
[2019-06-23 06:05] LABS: PHOSPHORUS < 0.7 MG/DL (2.3-4.7)
[2019-06-23] MEDS ORDERED: POTASSIUM CHLORIDE 20 MEQ TAB CR PO PRN (06:15)
[2019-06-23 06:20] LABS: ALANINE AMINOTRANSFERASE 10 IU/L (0-55); ALBUMIN 3.7 g/dL (3.5-5.0); ALBUMIN/GLOBULIN RATIO 1.6 (0.8-2.0); ALKALINE PHOSPHATASE 79 IU/L (40-150)
[2019-06-23 07:57] LABS: BASOPHILS % 0.2 % (0.0-1.0); EOSINOPHILS % 0.3 % (0.0-6.0); HEMATOCRIT 39.6 % (38.2-49.6); HEMOGLOBIN 15.2 g/dL (14.0-18.0); LYMPHOCYTES % 21.1 % (18.0-39.1); MEAN CORPUSCULAR HEMOGLOBIN 30.8 pg (28-32); MEAN CORPUSCULAR HGB CONC 38.4 g/dL (31-35); MEAN CORPUSCULAR VOLUME 80.2 fL (81-99); MONOCYTES # (AUTO) 0.6 (0.2-0.8); MONOCYTES % 6.2 % (4.4-11.3); NEUTROPHILS # (AUTO) 6.9 (2.1-6.9); NEUTROPHILS % 71.9 % (38.7-80.0); PLATELET COUNT 220 x10e3/uL (140-360); RED BLOOD COUNT 4.94 x10e6/uL (4.3-5.7); RED CELL DISTRIBUTION WIDTH 11.9 % (11.7-14.4)
[2019-06-23 08:20] LABS: ANION GAP 9.9 mmol/L (8-16); BLOOD UREA NITROGEN 9 mg/dL (7-26); BUN/CREATININE RATIO 11 (6-25); CALCIUM 8.7 mg/dL (8.4-10.2); CARBON DIOXIDE 23 mmol/L (22-29); CHLORIDE 96 mmol/L (98-107); CREATININE, SERUM 0.82 mg/dL (0.72-1.25); EST GLOMERULAR FILTRATION RATE > 60 ML/MIN (60-); GLUCOSE 84 mg/dL (74-118); MAGNESIUM 2.2 MG/DL (1.3-2.1); SODIUM 126 mmol/L (136-145)
[2019-06-23 08:53] LABS: POTASSIUM 2.9 mmol/L (3.5-5.1)
[2019-06-23] MEDS ORDERED: PANTOPRAZOLE 40 MG 10ML VIAL IV SCH (09:00)
[2019-06-23] MEDS ORDERED: DEXTROSE 50% SYRINGE 50 ML IV PRN (09:00)
[2019-06-23] MEDS ORDERED: INSULIN REGULAR, HUMAN 100 UNIT/1 ML 3ML VIAL SQ SCH (11:30)
[2019-06-23] MEDS: INSULIN GLARGINE 100 UNITS/ML VIAL SQ SCH ×2 (12:21→21:03)
[2019-06-23] MEDS: INSULIN LISPRO 100 UNIT/1 ML 3ML VIAL SQ SCH ×3 (12:22→21:03)
[2019-06-23] MEDS ORDERED: ENOXAPARIN SOD INJ 40 MG/0.4 ML SYR SC SCH (17:00)
[2019-06-23 17:04] LABS: ANION GAP 15.5 mmol/L (8-16); BLOOD UREA NITROGEN 7 mg/dL (7-26); BUN/CREATININE RATIO 9 (6-25); CALCIUM 8.3 mg/dL (8.4-10.2); CARBON DIOXIDE 19 mmol/L (22-29); CHLORIDE 95 mmol/L (98-107); CREATININE, SERUM 0.78 mg/dL (0.72-1.25); EST GLOMERULAR FILTRATION RATE > 60 ML/MIN (60-); GLUCOSE 163 mg/dL (74-118); MAGNESIUM 2.1 MG/DL (1.3-2.1); POTASSIUM 3.5 mmol/L (3.5-5.1); SODIUM 126 mmol/L (136-145)
--- NOTE | 2019-06-23 17:08 | NUR ---
pt arrived to unit via w/c, Resp even and unlabored at this time, no distress noted at this time. pt oriented to room and call light.
--- NOTE | 2019-06-23 19:00 | NUR ---
WALKING ROUNDS PERFORMED, RECEIVED PT LAYING SEMI FOWLERS IN BED, AAOX3, RR EVEN AND NON-LABORED, ON ROOM AIR. NO S/SX OF DISTRESS NOTED. LEFT PT LAYING SEMI FOWLERS IN BED, BED IN LOW LOCKED POSITION, SIDE RAILS UPX2, CALL LIGHT AND PHONE WITHIN REACH.
--- NOTE | 2019-06-23 19:05 | NUR ---
report given to oncoming nurse . pt stable.
[2019-06-24] VITALS: BP 136/70
[2019-06-24 04:00] VITALS: BP 147/74
[2019-06-24 05:14] LABS: BASOPHILS % 0.3 % (0.0-1.0); EOSINOPHILS # (AUTO) 0.1 (0.0-0.4); EOSINOPHILS % 1.1 % (0.0-6.0); HEMOGLOBIN 12.9 g/dL (14.0-18.0); LYMPHOCYTES # (AUTO) 3.3 (1.0-3.2); LYMPHOCYTES % 46.8 % (18.0-39.1); MEAN CORPUSCULAR HEMOGLOBIN 30.6 pg (28-32); MEAN CORPUSCULAR HGB CONC 37.9 g/dL (31-35); MEAN CORPUSCULAR VOLUME 80.8 fL (81-99); MONOCYTES # (AUTO) 0.4 (0.2-0.8); MONOCYTES % 6.2 % (4.4-11.3); NEUTROPHILS # (AUTO) 3.2 (2.1-6.9); NEUTROPHILS % 45.2 % (38.7-80.0); PLATELET COUNT 179 x10e3/uL (140-360); RED BLOOD COUNT 4.21 x10e6/uL (4.3-5.7); RED CELL DISTRIBUTION WIDTH 11.8 % (11.7-14.4)
--- NOTE | 2019-06-24 07:24 | NUR ---
RECEIVED PATIENT RESTING IN BED NO SIGNS OF DISTRESS. BED LOW, WHEELS LOCKED, SIDE RAILS X2. CALL LIGHT IN REACH WILL CONTINUE TO MONITOR PATIENT.
[2019-06-24] MEDS: INSULIN LISPRO 100 UNIT/1 ML 3ML VIAL SQ SCH ×2 (07:30→12:20)
[2019-06-24 08:09] VITALS: BP 131/81
[2019-06-24] MEDS: INSULIN GLARGINE 100 UNITS/ML VIAL SQ SCH (08:33)
[2019-06-24 08:48] VITALS: BP 131/81
[2019-06-24] MEDS: SODIUM CHLORIDE 0.9% 1000ML 1,000 ML IV SCH (09:01)
--- NOTE | 2019-06-24 10:23 | NUR ---
PATIENT A/O X3, EVEN RESPIRATIONS ON RA. BOWEL SOUNDS ACTIVE, SKIN INTACT, NO EDEMA. LUNG SOUNDS CLEAR TO AUSCULTATION. PATIENT AMBULATORY. RIGHT EJ 18 GAUGE AND RIGHT UA 20 GAUGE IV. NS @ 75 CC/HR. VITAL SIGNS STABLE. NO PAIN OR DISCOMFORT AT THIS TIME. CALL LIGHT IN REACH WILL CONTINUE TO MONITOR PATIENT.
[2019-06-24 12:03] VITALS: BP 133/76
--- NOTE | 2019-06-24 12:20 | NUR ---
REMOVED RIGHT EJ AND RIGHT UA IV. CATHETER TIP INTACT AND PRESSURE DRESSING APPLIED.
--- NOTE | 2019-06-24 12:22 | NUR ---
PATIENT DISCHARGED FROM FACILITY. PATIENT GATHERED ALL PERSONAL BELONGINGS, DISCHARGE INSTRUCTIONS, AND FOLLOW UP INFORMATION. LEFT UNIT IN WHEELCHAIR AND WENT HOME VIA PRIVATE AUTO. NO SIGNS OF DISTRESS WHEN LEAVING FACILITY.
--- NOTE | 2019-06-25 02:29 | Discharge Summary ---
PRIMARY CARE DOCTOR: Dr. Abhijit Shultz. FINAL DIAGNOSIS: Recurrent diabetic ketoacidosis, resolved. SECONDARY DIAGNOSES: 1. Diabetic gastroparesis. 2. Hyponatremia. 3. Hypokalemia. 4. Marijuana usage. CONSULTANTS: None. PROCEDURES/STUDIES PERFORMED: None. HISTORY: Per H and P. HOSPITAL COURSE: The patient was admitted to the ICU. The patient was put on insulin drip. His anion gap closed. Clear liquid diet was started. The patient was able to advance without any problem. His potassium was repleted. I will also prescribe him Reglan to go home with. He said that he has some luck with it in the past. The patient did not follow up with his PCP last time due to the fact that he could not afford the co-pay. Hopefully, he will follow up with his PCP at this time. I have updated his PCP about his hospitalization as well. I have advised him about the possibility of hyperemesis syndrome due to marijuana, however, he states that marijuana is the only thing that helps with his nausea. The patient was seen and examined today. It took 32 minutes total to discharge this patient. CONDITION ON DISCHARGE: Improved. DISCHARGE MEDICATIONS: Please see medication reconciliation form. MD NISH Johnson/ESMER /[id number] cc: [facility] Alleene ALEAH
== END 2019-06-24 12:22 | disposition home or self-care (01) | DRG 638 ==
LOC: ER 15:42 → ERHOLD 20:40 → ICU 22:44 → MED/SURG 06-23 16:55
PROVIDERS: ADMIT Internal Medicine; ATTEND Internal Medicine
DX: E11.10 Type 2 diabetes mellitus with ketoacidosis without coma (principal); E87.1 Hypo-osmolality and hyponatremia; E11.43 Type 2 diabetes mellitus with diabetic autonomic (poly)neuropathy; K31.84 Gastroparesis; Z79.4 Long term (current) use of insulin; E87.6 Hypokalemia; F12.90 Cannabis use, unspecified, uncomplicated
CPT/HCPCS: 36415; 36600; 71045; 80048; 80053; 80307; 81001; 82150; 82550; 82553; 82805; 82948; 83036; 83605; 83690; 83735; 84100; 84443; 84484; 85025; 85610; 85730; 87040; 87086; 93005; 99284; J1650; J1815; J1817; J2405; J3480; J7030; J7050

== ENCOUNTER 2019-10-26 17:48 | Emergency (ER) | payer OTHER ==
[~2019-10-26] VITALS: Ht 175.3 cm; Wt 65.8 kg
[2019-10-26] MEDS ORDERED: ONDANSETRON HCL INJ 2MG/ML 2ML 2 MG/ML VIAL IV ONE (18:17)
[2019-10-26] MEDS ORDERED: LORAZEPAM INJ 2 MG/ML VIAL ONE (18:23)
[2019-10-26] MEDS ORDERED: LORAZEPAM INJ 2 MG/ML VIAL IV ONE (18:30)
[2019-10-26] MEDS ORDERED: SODIUM CHLORIDE 0.9% 1000ML 2,000 ML IV SCH (18:30)
--- NOTE | 2019-10-26 18:30 | NUR ---
PATIENT YELLING AND KICKING AND ATTEMPTING TO STRIKE STAFF DURING TRIAGE. PATIENT UNABLE TO FOLLOW DIRECTIONS. FAMILY ASSISTING WITH HOLDING PATIENT. IV STARTED, BLOOD DRAWN, AND PATIENT GIVEN 2 MG ATIVAN IV FOR AGITATION. PATIENT CALMED SOME AFTER ATIVAN AND WAS ABLE TO BE TAKEN TO CT. GLUCOSE WAS 349
[2019-10-26 18:40] LABS: BASOPHILS % 0.3 % (0.0-1.0); EOSINOPHILS % 0.2 % (0.0-6.0); HEMATOCRIT 39.9 % (38.2-49.6); HEMOGLOBIN 14.8 g/dL (14.0-18.0); LYMPHOCYTES # (AUTO) 1.9 (1.0-3.2); LYMPHOCYTES % 16.6 % (18.0-39.1); MEAN CORPUSCULAR HEMOGLOBIN 30.8 pg (28-32); MEAN CORPUSCULAR HGB CONC 37.1 g/dL (31-35); MEAN CORPUSCULAR VOLUME 83.1 fL (81-99); MONOCYTES # (AUTO) 0.7 (0.2-0.8); MONOCYTES % 6.2 % (4.4-11.3); NEUTROPHILS # (AUTO) 8.9 (2.1-6.9); NEUTROPHILS % 76.3 % (38.7-80.0); PLATELET COUNT 281 x10e3/uL (140-360); RED CELL DISTRIBUTION WIDTH 11.3 % (11.7-14.4)
[2019-10-26 18:56] LABS: MAGNESIUM 1.9 MG/DL (1.3-2.1); PHOSPHORUS 1.9 MG/DL (2.3-4.7)
[2019-10-26 18:57] LABS: CLARITY,URINE SL CLOUDY (CLEAR); COLOR,URINE YELLOW (YELLOW); LEUKOCYTE ESTERASE ,URINE NEGATIVE (NEGATIVE); NITRITE,URINE NEGATIVE (NEGATIVE); PROTEIN,URINE DIPSTICK NEGATIVE (NEGATIVE)
[2019-10-26 18:57] LABS: ALANINE AMINOTRANSFERASE 16 IU/L (0-55); ALBUMIN 4.4 g/dL (3.5-5.0); ALBUMIN/GLOBULIN RATIO 1.6 (0.8-2.0); ALKALINE PHOSPHATASE 103 IU/L (40-150); ANION GAP 24.7 mmol/L (8-16); BLOOD UREA NITROGEN 10 mg/dL (7-26); BUN/CREATININE RATIO 10 (6-25); CALCIUM 10.1 mg/dL (8.4-10.2); CARBON DIOXIDE 20 mmol/L (22-29); CHLORIDE 89 mmol/L (98-107); CREATININE, SERUM 0.99 mg/dL (0.72-1.25); EST GLOMERULAR FILTRATION RATE > 60 ML/MIN (60-); SODIUM 131 mmol/L (136-145)
[2019-10-26 18:58] LABS: KETONES,URINE 2+ (NEGATIVE); URINE UROBILINOGEN 1 mg/dL (0.2 - 1)
[2019-10-26 18:59] LABS: BILIRUBIN,URINE NEGATIVE (NEGATIVE)
[2019-10-26 19:02] LABS: GLUCOSE 404 mg/dL (74-118); POTASSIUM 2.7 mmol/L (3.5-5.1)
[2019-10-26 19:04] LABS: AMPHETAMINES SCREEN,URINE NEGATIVE (NEGATIVE); BENZODIAZEPINES SCREEN,URINE NEGATIVE (NEGATIVE); PHENCYCLIDINE SCREEN,URINE NEGATIVE (NEGATIVE)
[2019-10-26] MEDS ORDERED: SODIUM CHLORIDE 0.9% 1000ML 1,000 ML IV SCH (19:06)
[2019-10-26] MEDS ORDERED: DEXTROSE 5%/0.45% SOD CHL 1,000 ML IV SCH (19:06)
[2019-10-26] MEDS ORDERED: POTASSIUM CHLORIDE 20MEQ/100ML 200 ML IV PRN (19:15)
[2019-10-26] MEDS ORDERED: MAGNESIUM SULF 1GRAM/DEXTROSE 100 ML IV PRN (19:15)
[2019-10-26] MEDS ORDERED: INSULIN REGULAR, HUMAN 3ML VL 100 UNIT in SODIUM CHLORIDE 0.9% 100 ML IV SCH ×2 (19:15)
[2019-10-26] MEDS ORDERED: POTASSIUM CHLORIDE 20MEQ/100ML 200 ML IV ONE (19:15)
[2019-10-26 19:18] LABS: CREATINE KINASE 135 IU/L (30-200)
--- NOTE | 2019-10-26 20:10 | Diagnostic Imaging Report ---
Exam: Head CT without contrast History: Altered mental status Comparison studies: None Technique: Axial images were obtained from the skull base to the vertex. Coronal and sagittal images reconstructed from the axial data. Dose modulation, iterative reconstruction, and/or weight based adjustment of the mA/kV was utilized to reduce the radiation dose to as low as reasonably achievable. Radiation dose: Total DLP: 921 mGy*cm. Estimated effective dose: DLP x 0.015 Intravenous contrast: None Findings: Scalp: No abnormalities. Bones: No fractures, blastic or lytic lesions. Brain sulci: Appropriate for age. Ventricles: Normal in size and configuration. No hydrocephalus. Extra-axial spaces: No masses, no fluid collection. Parenchyma: No abnormal densities. No masses, acute hemorrhage, acute or chronic vascular insults. Sellar/suprasellar region: No abnormalities. Craniocervical junction: Patent foramen magnum. No Chiari one malformation. Included paranasal sinuses: Clear. Bilateral ear and included mastoid cavities: Clear. IMPRESSION: No abnormalities. Signed by: Dr. Kaz Reynolds M.D. on 10/26/2019 8:07 PM
--- NOTE | 2019-10-26 20:40 | NUR ---
INITIATED TRANSFER TO [facility]. SPOKE WITH Sixto WHITAKER RN GENERAL LITHOGRAPHIC WORKER.
== END 2019-10-26 23:20 | disposition other institution (70) ==
LOC: ER 17:48
DX: F15.121 Other stimulant abuse with intoxication delirium (principal); E10.10 Type 1 diabetes mellitus with ketoacidosis without coma; E87.6 Hypokalemia; K52.9 Noninfective gastroenteritis and colitis, unspecified
CPT/HCPCS: 36415; 36600; 70450; 80053; 80307; 80320; 81001; 82550; 82553; 82948; 83605; 83735; 84100; 84484; 85025; 96374; 99284; J1817; J2060; J2405; J3480; J7030; J7050

== ENCOUNTER 2020-05-12 19:32 | Emergency (ER) | payer OTHER, SELFPAY ==
[~2020-05-12] VITALS: Ht 175.3 cm; Wt 65.8 kg
[2020-05-12] MEDS ORDERED: SODIUM CHLORIDE 0.9% 1000ML 1,000 ML IV STA (19:42)
--- NOTE | 2020-05-12 19:43 | Emergency Department Note ---
History of Present Illnes History of Present Illness History of Present Illness This is a 25 year old male presents to the ED for malaise and weakness. H/O hyperglycemia . Onset (how long ago): day(s) Radiation: Reports abdomen Severity: moderate Duration (how long): day(s) Timing of current episode: constant Progression: worsening Chronicity: recurrent Context: Reports non-compliance w/ medications Relieving factors: none Exacerbating factors: none Associated symptoms: Reports malaise, Reports nausea/vomiting Past Medical/Family History Physician Review I have reviewed the patient's past medical and family history. Any updates have been documented here. Past Medical History Recent Fever: No Clinical Suspicion of Infectio: No New/Unexplained Change in Ment: No Past Medical History: Diabetes, GERD Other Medical History: GASTROPARESIS RECURRENT DKA CHRONIC NAUSEA Past Surgical History: None Other Surgery: plastic surgery on eyelids as a child Social History Smoking Cessation: Never Smoker Alcohol Use: None Any Illegal Drug Use: No Other Last Tetanus: UNKNOWN Review of Systems Review of Systems Constitutional: Reports weakness EENTM: Reports no symptoms Cardiovascular: Reports no symptoms Respiratory: Reports no symptoms Gastrointestinal: Reports abdominal pain Genitourinary: Reports no symptoms Musculoskeletal: Reports no symptoms Integumentary: Reports no symptoms Neurological: Reports no symptoms Psychological: Reports no symptoms Endocrine: Reports no symptoms Hematological/Lymphatic: Reports no symptoms Physical Exam Related Data Allergies: Coded Allergies: No Known Allergies (Unverified , 05/19/19) Physical Exam CONSTITUTIONAL Constitutional: Present ill appearing HENT HENT: Present normocephalic, Present atraumatic, Present oropharynx clear/moist, Present nose normal HENT L/R: Present left ext ear normal, Present right ext ear normal EYES Eyes: Reports PERRL, Reports conjunctivae normal NECK Neck: Present ROM normal PULMONARY Pulmonary: Present effort normal, Present breath sounds normal CARDIOVASCULAR Cardiovascular: Present regular rhythm, Present heart sounds normal, Present capillary refill normal, Present normal rate GASTROINTESTINAL Abdominal: Present soft, Present nontender, Present bowel sounds normal GENITOURINARY Genitourinary: Present exam deferred SKIN Skin: Present dry MUSCULOSKELETAL Musculoskeletal: Present ROM normal NEUROLOGICAL Neurological: Present alert, Present oriented x 3, Present no gross motor or sensory deficits PSYCHOLOGICAL Psychological: Present mood/affect normal, Present judgement normal Results Laboratory Lab results reviewed: Yes Laboratory comments Laboratory Tests Test 05/12/20 20:04 05/12/20 20:03 White Blood Count 9.89 x10e3/uL (4.8-10.8) Red Blood Count 5.99 x10e6/uL (4.3-5.7) Hemoglobin 18.0 g/dL (14.0-18.0) Hematocrit 49.6 % (38.2-49.6) Mean Corpuscular Volume 82.8 fL (81-99) Mean Corpuscular Hemoglobin 30.1 pg (28-32) Mean Corpuscular Hemoglobin Concent 36.3 g/dL (31-35) Red Cell Distribution Width 12.2 % (11.7-14.4) Platelet Count 272 x10e3/uL (140-360) Neutrophils (%) (Auto) 68.4 % (38.7-80.0) Lymphocytes (%) (Auto) 21.7 % (18.0-39.1) Monocytes (%) (Auto) 8.7 % (4.4-11.3) Eosinophils (%) (Auto) 0.5 % (0.0-6.0) Basophils (%) (Auto) 0.1 % (0.0-1.0) Neutrophils # (Auto) 6.8 (2.1-6.9) Lymphocytes # (Auto) 2.2 (1.0-3.2) Monocytes # (Auto) 0.9 (0.2-0.8) Eosinophils # (Auto) 0.1 (0.0-0.4) Basophils # (Auto) 0.0 (0.0-0.1) Absolute Immature Granulocyte (auto 0.06 x10e3/uL (0-0.1) Urine Color Yellow (YELLOW) Urine Clarity Sl cloudy (CLEAR) Urine pH 6.5 (5 - 7) Urine Specific [place] 1.030 (1.010-1.025) Urine Protein 1+ (NEGATIVE) Urine Glucose (UA) 2+ (NEGATIVE) Urine Ketones 3+ (NEGATIVE) Urine Blood Negative (NEGATIVE) Urine Nitrite Negative (NEGATIVE) Urine Bilirubin Moderate (NEGATIVE) Urine Urobilinogen 0.2 mg/dL (0.2 - 1) Urine Leukocyte Esterase Negative (NEGATIVE) Urine RBC 0-5 /HPF (0-5) Urine WBC None /HPF (0-5) Urine Epithelial Cells None /LPF (NONE) Urine Bacteria Moderate /HPF (NONE) Sodium Level 124 mmol/L (136-145) Potassium Level 4.5 mmol/L (3.5-5.1) Chloride Level 91 mmol/L (98-107) Carbon Dioxide Level 13 mmol/L (22-29) Anion Gap 24.5 mmol/L (8-16) Blood Urea Nitrogen 26 mg/dL (7-26) Creatinine 1.42 mg/dL (0.72-1.25) Estimat Glomerular Filtration Rate 60 ML/MIN (60-) BUN/Creatinine Ratio 18 (6-25) Glucose Level 351 mg/dL (74-118) Calcium Level 9.9 mg/dL (8.4-10.2) Total Bilirubin 1.5 mg/dL (0.2-1.2) Aspartate Amino Transf (AST/SGOT) 19 IU/L (5-34) Alanine Aminotransferase (ALT/SGPT) 24 IU/L (0-55) Alkaline Phosphatase 108 IU/L (40-150) Creatine Kinase 77 IU/L (30-200) Creatine Kinase MB 1.60 ng/mL (0-5.0) Troponin I < 0.001 ng/mL (0-0.300) Total Protein 8.6 g/dL (6.5-8.1) Albumin 5.0 g/dL (3.5-5.0) Globulin 3.6 g/dL (2.3-3.5) Albumin/Globulin Ratio 1.4 (0.8-2.0) Bedside Glucose 333 mg/dL (70-120) Assessment & Plan Medical Decision Making MDM 25 yom with prior h/o of DKA Diff Dx : HHS , DKA, hyperglycemia, COVID-19 infection Reassessment Reassessment patient given fluids during ED evaluation. Patient verbally abusive to staff and requests to leave hospital. Declines admission to the hospital Assessment & Plan Final Impression: (1) Diabetic keto-acidosis Depart Disposition: AGAINST MEDICAL ADVICE Home Meds Active Scripts Insulin Detemir (LEVEMIR) 100 Unit/1 Ml Vial, 14 UNITS SC Q12H for 30 Days Prov:JEREMIE BANKS MD 07/26/18 Reported Medications Metoclopramide Hcl (REGLAN) 5 Mg Tablet, 5 MG PO ACHS 01/30/19 Ondansetron Hcl (ONDANSETRON HCL) 4 Mg Tablet, 4 MG PO TID PRN for NAUSEA AND VOMITING 01/30/19 Insulin Lispro (HUMALOG) 100 Unit/1 Ml Cartridge 05/16/18 CONSTANCE DIA DO May 12, 2020 19:43
[2020-05-12 20:48] LABS: BASOPHILS % 0.1 % (0.0-1.0); EOSINOPHILS # (AUTO) 0.1 (0.0-0.4); EOSINOPHILS % 0.5 % (0.0-6.0); HEMATOCRIT 49.6 % (38.2-49.6); LYMPHOCYTES # (AUTO) 2.2 (1.0-3.2); LYMPHOCYTES % 21.7 % (18.0-39.1); MEAN CORPUSCULAR HEMOGLOBIN 30.1 pg (28-32); MEAN CORPUSCULAR HGB CONC 36.3 g/dL (31-35); MEAN CORPUSCULAR VOLUME 82.8 fL (81-99); MONOCYTES # (AUTO) 0.9 (0.2-0.8); MONOCYTES % 8.7 % (4.4-11.3); NEUTROPHILS # (AUTO) 6.8 (2.1-6.9); NEUTROPHILS % 68.4 % (38.7-80.0); PLATELET COUNT 272 x10e3/uL (140-360); RED BLOOD COUNT 5.99 x10e6/uL (4.3-5.7); RED CELL DISTRIBUTION WIDTH 12.2 % (11.7-14.4)
[2020-05-12 21:06] LABS: ALANINE AMINOTRANSFERASE 24 IU/L (0-55); ALBUMIN/GLOBULIN RATIO 1.4 (0.8-2.0); ALKALINE PHOSPHATASE 108 IU/L (40-150); ANION GAP 24.5 mmol/L (8-16); BLOOD UREA NITROGEN 26 mg/dL (7-26); BUN/CREATININE RATIO 18 (6-25); CALCIUM 9.9 mg/dL (8.4-10.2); CARBON DIOXIDE 13 mmol/L (22-29); CHLORIDE 91 mmol/L (98-107); CREATINE KINASE 77 IU/L (30-200); CREATININE, SERUM 1.42 mg/dL (0.72-1.25); EST GLOMERULAR FILTRATION RATE 60 ML/MIN (60-); GLUCOSE 351 mg/dL (74-118); POTASSIUM 4.5 mmol/L (3.5-5.1); SODIUM 124 mmol/L (136-145)
[2020-05-12 22:04] LABS: BILIRUBIN,URINE MODERATE (NEGATIVE); CLARITY,URINE SL CLOUDY (CLEAR); COLOR,URINE YELLOW (YELLOW); KETONES,URINE 3+ (NEGATIVE); LEUKOCYTE ESTERASE ,URINE NEGATIVE (NEGATIVE); NITRITE,URINE NEGATIVE (NEGATIVE); PROTEIN,URINE DIPSTICK 1+ (NEGATIVE); URINE UROBILINOGEN 0.2 mg/dL (0.2 - 1)
[2020-05-12 22:14] LABS: BACTERIA,URINE MODERATE /HPF; RBC,URINE 0-5 /HPF (0-5)
== END 2020-05-12 21:30 | disposition left against medical advice (07) ==
LOC: ER 19:50
DX: E11.10 Type 2 diabetes mellitus with ketoacidosis without coma (principal); E11.65 Type 2 diabetes mellitus with hyperglycemia; Z11.59 Encounter for screening for other viral diseases
CPT/HCPCS: 36415; 80053; 81001; 82550; 82553; 82948; 84484; 85025; 87635; J7030

== ENCOUNTER 2020-06-11 22:25 | Emergency (ER) | payer SELFPAY ==
[2020-06-11] MEDS ORDERED: SODIUM CHLORIDE 0.9% 1000ML 1,000 ML IV STA ×3 (22:40→23:28)
[2020-06-11] MEDS ORDERED: ONDANSETRON HCL INJ 2MG/ML 2ML 2 MG/ML VIAL IV STA (22:49)
[2020-06-11] MEDS ORDERED: SODIUM CHLORIDE 0.9% 1000ML 2,000 ML ONE (23:23)
[2020-06-11] MEDS ORDERED: INSULIN REGULAR, HUMAN 100 UNIT/1 ML 3ML VIAL IV ONE (23:30)
--- OUTSIDE RECORDS SUMMARY | 2020-06-11 23:33 | XMS REPORT | Clinical Summary ---
Author Author DANA [facility] Organization [facility] Address Unknown Phone Unavailable Care Team Providers Care Special Warfare Boat Operator Name Role Phone Pcp, No PCP Unavailable Allergies No Known Allergies Medications End Date Status Medication Sig Dispensed Refills Start Date Active insulin regular (HUMULIN Inject 0 R,NOVOLIN R) 100 unit/mL subcutaneousl injection y 3 (three) times daily before meals Use as directed. Sliding scale . Active insulin NPH 100 unit/mL Inject 15 0 (3 mL) InPnIndications: Units type 1 diabetes mellitus subcutaneousl y 2 (two) times daily. Active ketone blood test Strp 1 strip by 10 strip 0 Miscellaneous 9 route as needed. 10/28/2019 glucagon 1 mg injection Inject 1 mg 1 each 0 intramuscular 9 ly once for 1 dose. Active Problems Problem Noted Date Hypoglycemia due to type 1 diabetes mellitus 019 Gastroparesis 10/27/2019 Methamphetamine abuse 10/27/2019 Marijuana abuse 10/27/2019 Medically noncompliant 10/27/2019 Diabetic ketoacidosis 10/26/2019 DKA (diabetic ketoacidoses) 03/09/2018 High anion gap metabolic acidosis 03/09/2018 Hyperglycemia 03/09/2018 Encounters Care Team Description Date Type Specialty Galen Guzman MD Tirukkovalluri, Srilakshmi, MD Tran, Tuyen V., MD Hite, Wayne K., DO Diabetic ketoacidosis without coma assoc iated with type 1 diabetes mellitus (HCC) (Primary Dx); Gastroparesis; Hypoglycemia; Hypokalemia 10/26/2019 Hospital Oncology - Encounter 10/28/2019 Galen Guzman MD Transfer 10/26/2019 Telephone Critical Care Medic ine after 06/11/2019 Family History Medical History Relation Name Comments [...] Vital Signs Time Taken Vital Sign Reading 10/28/2019 12:34 PM MAINFRAME ARCHITECT Blood Pressure 114/73 10/28/2019 12:34 PM MAINFRAME ARCHITECT Pulse 79 10/28/2019 12:34 PM MAINFRAME ARCHITECT Temperature 35.9 C (96.7 F) 10/28/2019 12:34 PM MAINFRAME ARCHITECT Respiratory Rate 18 10/28/2019 12:34 PM MAINFRAME ARCHITECT Oxygen Saturation 100% - Inhaled Oxygen - Concentration 10/28/2019 5:36 AM MAINFRAME ARCHITECT Weight 59 kg (130 lb 1.1 oz) 10/28/2019 12:00 AM MAINFRAME ARCHITECT Height 180.3 cm (5' 11") 10/28/2019 5:36 AM MAINFRAME ARCHITECT Body Mass Index 18.14 Plan of Treatment Not on file Procedures Comments Procedure Name Priority Date/Time Associated Diag nosis RHYTHM STRIP - SCAN 10/30/2019 9:11 AM MAINFRAME ARCHITECT POCT-GLUCOSE METER Routine 10/28/2019 12:35 PM MAINFRAME ARCHITECT POCT-GLUCOSE METER Routine 10/28/2019 8:57 AM MAINFRAME ARCHITECT MAGNESIUM Routine 10/28/2019 4:59 AM MAINFRAME ARCHITECT BASIC METABOLIC PANEL (7) Routine 10/28/2019 4:59 AM MAINFRAME ARCHITECT MAGNESIUM STAT 10/28/2019 4:59 AM MAINFRAME ARCHITECT POCT-GLUCOSE METER Routine 10/27/2019 10:23 PM MAINFRAME ARCHITECT POCT-GLUCOSE METER Routine 10/27/2019 5:18 PM MAINFRAME ARCHITECT POCT-GLUCOSE METER Routine 10/27/2019 12:21 PM MAINFRAME ARCHITECT POCT-GLUCOSE METER Routine 10/27/2019 11:52 AM MAINFRAME ARCHITECT POCT-GLUCOSE METER Routine 10/27/2019 10:19 AM MAINFRAME ARCHITECT POCT-GLUCOSE METER Routine 10/27/2019 9:10 AM MAINFRAME ARCHITECT POCT-GLUCOSE METER Routine 10/27/2019 7:56 AM MAINFRAME ARCHITECT POCT-GLUCOSE METER Routine 10/27/2019 6:13 AM MAINFRAME ARCHITECT POCT-GLUCOSE METER Routine 10/27/2019 4:59 AM MAINFRAME ARCHITECT RAPID DRUG SCREEN, URINE Routine 10/27/2019 4:59 AM MAINFRAME ARCHITECT URINALYSIS W/ REFLEX Routine 10/27/2019 URINE CULTURE 4:59 AM MAINFRAME ARCHITECT BLOOD CULTURE Routine 10/27/2019 4:56 AM MAINFRAME ARCHITECT CBC W/PLT COUNT & AUTO Routine 10/27/2019 DIFFERENTIAL 4:24 AM MAINFRAME ARCHITECT KETONE, BLOOD Routine 10/27/2019 4:24 AM MAINFRAME ARCHITECT BLOOD GAS, VENOUS Routine 10/27/2019 4:24 AM MAINFRAME ARCHITECT CBC W/PLT COUNT & AUTO Routine 10/27/2019 DIFFERENTIAL 4:24 AM MAINFRAME ARCHITECT MAGNESIUM Routine 10/27/2019 4:24 AM MAINFRAME ARCHITECT BASIC METABOLIC PANEL (7) Routine 10/27/2019 4:24 AM MAINFRAME ARCHITECT POCT-GLUCOSE METER Routine 10/27/2019 2:32 AM MAINFRAME ARCHITECT POCT-GLUCOSE METER Routine 10/27/2019 1:31 AM MAINFRAME ARCHITECT BLOOD GAS, VENOUS STAT 10/27/2019 12:41 AM MAINFRAME ARCHITECT CBC W/PLT COUNT & AUTO STAT 10/27/2019 DIFFERENTIAL 12:29 AM MAINFRAME ARCHITECT CBC W/PLT COUNT & AUTO STAT 10/27/2019 DIFFERENTIAL 12:29 AM MAINFRAME ARCHITECT HEPATIC FUNCTION PANEL STAT 10/27/2019 12:29 AM MAINFRAME ARCHITECT TROPONIN I Routine 10/27/2019 12:29 AM MAINFRAME ARCHITECT HEMOGLOBIN A1C Routine 10/27/2019 12:29 AM MAINFRAME ARCHITECT TSH/FREE T4 IF INDICATED Routine 10/27/2019 12:29 AM MAINFRAME ARCHITECT LIPASE Routine 10/27/2019 12:29 AM MAINFRAME ARCHITECT AMYLASE Routine 10/27/2019 12:29 AM MAINFRAME ARCHITECT LACTIC ACID, VENOUS Routine 10/27/2019 12:29 AM MAINFRAME ARCHITECT MAGNESIUM Routine 10/27/2019 12:29 AM MAINFRAME ARCHITECT BASIC METABOLIC PANEL (7) Routine 10/27/2019 12:29 AM MAINFRAME ARCHITECT KETONE, BLOOD STAT 10/27/2019 12:29 AM MAINFRAME ARCHITECT PHOSPHORUS STAT 10/27/2019 12:29 AM MAINFRAME ARCHITECT MAGNESIUM STAT 10/27/2019 12:29 AM MAINFRAME ARCHITECT POTASSIUM STAT 10/27/2019 12:29 AM MAINFRAME ARCHITECT BASIC METABOLIC PANEL (7) STAT 10/27/2019 12:29 AM MAINFRAME ARCHITECT BLOOD CULTURE Routine 10/27/2019 12:29 AM MAINFRAME ARCHITECT POCT-GLUCOSE METER Routine 10/27/2019 12:01 AM MAINFRAME ARCHITECT after 06/11/2019 Results * RHYTHM STRIP - SCAN (10/30/2019 9:11 AM MAINFRAME ARCHITECT) Narrative Performed At This result has an attachment that is n ot available. * POC-Glucose meter (10/28/2019 12:35 PM MAINFRAME ARCHITECT) Only the most recent of 14 results within the time period is included. POC-Glucose Meter 159 (H)Comment: : TESTED AT 70 - 110 mg/dL [facility] [address]: Tube Machine Operator/Distributed Energy Systems Consultant ID = [id number] for MILTON SHARPE Specimen Blood Performing Organization Address [facility] one Number [address] [facility] * Magnesium (10/28/2019 4:59 AM MAINFRAME ARCHITECT) Only the most recent of 5 results within the time period is included. Magnesium 2.1 1.6 - 2.6 mg/dL [facility] Specimen Blood Performing Organization Address [facility] one Number [place] [address] [facility] * Basic Metabolic Panel (10/28/2019 4:59 AM MAINFRAME ARCHITECT) Only the most recent of 4 results within the time period is included. Sodium 135 (L) 136 - 145 meq/L [facility] Potassium 3.8 3.5 - 5.1 meq/L [facility] Chloride 101 98 - 107 meq/L [facility] CO2 28 22 - 29 meq/L [facility] BUN 13 7 - 21 mg/dL [facility] Creatinine 0.71 0.57 - 1.25 mg/dL [facility] Glucose 98 70 - 105 mg/dL [facility] Calcium 8.5 8.4 - 10.2 mg/dL [facility] EGFR 164Comment: ESTIMATED GFR IS mL/min/1.73 sq m [facility] NOT ACCURATE CREATININE [facility] CLEARANCE IN PREDICTING GLOMERULAR FILTRATION RATE. ESTIMATED GFR IS NOT APPLICABLE FOR DIALYSIS PATIENTS. Specimen Blood Performing Organization Address [facility] one Number [address] [facility] * Urinalysis w/Microscopic + Reflex to Culture (10/27/2019 4:59 AM MAINFRAME ARCHITECT) Color, UA Yellow [facility] Clarity, UA Clear [facility] Specific [place], UA 1.012 1.001 - 1.035 [facility] pH, UA 7.0 5.0 - 8.0 [facility] Protein, UA Negative Negative [facility] Glucose, UA >1000 mg/dL (A) Negative [facility] Ketones, UA 40 mg/dL (A) Negative [facility] Bilirubin, UA Negative Negative [facility] Blood, UA Negative Negative [facility] Nitrite, UA Negative Negative [facility] Leukocytes, UA Negative Negative [facility] Urobilinogen, UA 3.0 (H) 0.2 - 1.0 mg/dL [facility] RBC, UA Comment: RBC:0-1/HPF [facility] WBC, UA Comment: WBC:1-2/HPF [facility] Specimen Source [facility] Specimen Urine Performing Organization Address City/State/Zipcode Ph one Number [place] [address] [facility] * Rapid drug screen, urine (10/27/2019 4:59 AM MAINFRAME ARCHITECT) Barbiturate Screen Negative Negative [facility] Benzodiazepine Screen Negative Negative [facility] Cocaine (Metab.) Screen Negative Negative [facility] Methadone Screen Negative Negative [facility] Opiate Screen Negative Negative [facility] Cannabinoid Screen Positive (A) Negative [facility] Amph/Methamph Screen Positive (A) Negative [facility] Phencyclidine Screen Negative Negative [facility] Specimen Urine Narrative Performed At [facility] Cocaine 300 ng/mL [facility] Iiyphvljorv90 n g/mL Vodckasqrhknxq833 ng/mL Barbiturate 200 ng/ mL Bnosjkzhthusj15 ng/ mL Opiate3 00 ng/mL Methadone 300 n g/mL Amphetamine/ 1000 ng/mL Methamphetamine This assay provides an unconfirmed qual itative test result for the clinical management of patients in emergency sit uations. Chain of custody not maintained. Some ngqo-yvq-rlylqfd medications, as w ell as adulterants, may cause inaccurate results. Clinical correlation should be applied. A more comprehensive drug screen or confirmation of a detected dr brandon may be performed upon request. Performing Organization Address [facility] [place] [place] Ph one Number [place] [address] [facility] * Blood Culture - Routine (Left Venipuncture) (10/27/2019 4:56 AM MAINFRAME ARCHITECT) Only the most recent of 2 results within the time period is included. Result No growth in 5 days [facility] Specimen Blood Performing Organization Address [facility] [place] [place] Ph one Number [address] [facility] * CBC with platelet count + automated diff (10/27/2019 4:24 AM MAINFRAME ARCHITECT) Only the most recent of 2 results within the time period is included. WBC 7.7 3.5 - 10.5 K/L [facility] RBC 4.07 (L) 4.63 - 6.08 M/L [facility] Hemoglobin 12.7 (L) 13.7 - 17.5 GM/DL [facility] Hematocrit 34.1 (L) 40.1 - 51.0 % [facility] MCV 83.8 79.0 - 92.2 fL [facility] MCH 31.2 25.7 - 32.2 pg [facility] MCHC 37.2 (H) 32.3 - 36.5 GM/DL [facility] RDW 11.4 (L) 11.6 - 14.4 % [facility] Platelets 240 150 - 450 K/CU MM [facility] MPV 9.4 9.4 - 12.4 fL [facility] nRBC 0 0 - 0 /100 WBC [facility] % Neutros 56 % [facility] % Lymphs 36 % [facility] % Monos 6 % [facility] % Eos 1 % [facility] % Baso 0 % [facility] # Neutros 4.34 1.78 - 5.38 K/L [facility] # Lymphs 2.80 1.32 - 3.57 K/L [facility] # Monos 0.44 0.30 - 0.82 K/L [facility] # Eos 0.07 0.04 - 0.54 K/L [facility] # Baso 0.02 0.01 - 0.08 K/L [facility] Immature 0 0 - 1 % Granulocytes-Relative [facility] Specimen Blood Performing Organization Address City/State/Zipcode Ph one Number [facility] [address] [place], [place] [address] [facility]ENTER * Blood gas, venous (10/27/2019 4:24 AM MAINFRAME ARCHITECT) Only the most recent of 2 results within the time period is included. , Julio 7.47 (H) 7.32 - 7.42 [facility] pCO2, Julio 42 41 - 51 mmHg [facility] pO2, Julio 61 (H) 25 - 40 mmHg [facility] O2 Sat, Julio 92.7 (H) 40.0 - 70.0 % [facility] HCO3, Julio 30 (H) 21 - 29 mmol/L [facility] Base Excess, Julio 5.3 (H) -2.0 - 3.0 mmol/L [facility] Patient Temperature 37.0 C [facility] FIO2 21.0 % [facility] Specimen Blood Performing Organization Address [facility] one Number [place] [address] [phone] [place] [address] * Ketone, blood (10/27/2019 4:24 AM MAINFRAME ARCHITECT) Only the most recent of 2 results within the time period is included. Ketones, Blood 0.2 <0.4 mmol/L [facility] Specimen Blood Performing Organization Address City/[facility] one Number [place] [address] [facility] * TSH/Free T4 If Indicated (10/27/2019 12:29 AM MAINFRAME ARCHITECT) TSH 0.97 0.35 - 4.94 uIU/mL [facility] Specimen Blood Performing Organization Address City/[facility] [place] [place] Ph one Number [place] [address] [facility] * Troponin I (10/27/2019 12:29 AM MAINFRAME ARCHITECT) Troponin I <0.01 0.00 - 0.03 ng/mL [facility] Specimen Blood Narrative Performed At Troponin I (TnI) levels must be interpreted in the co ntext of the presenting [facility] symptoms and the clinical findings. Elevated TnI leve ls indicate myocardial [facility] damage, but are not specific for ischem ic heart disease. Elevated TnI levels are seen in patients with other cardiac con ditions (including myocarditis and congestive heart failure), and slight T nI elevations occur in patients with other conditions, including sepsis, albin al failure, acidosis, acute neurological disease, and persistent tachyarrhythmia . Performing Organization Address City[facility] Ph one Number [address] [facility] * Lactic acid, venous (10/27/2019 12:29 AM MAINFRAME ARCHITECT) Lactate, Venous 1.8 0.5 - 2.2 mmol/L [facility] Specimen Blood Performing Organization Address [facility] Ph one Number [address] [facility] * Potassium (10/27/2019 12:29 AM MAINFRAME ARCHITECT) Potassium 2.7 (L) 3.5 - 5.1 meq/L [facility] Specimen Blood Performing Organization Address [facility] [place] [place] Ph one Number [address] [facility] * Phosphorus (10/27/2019 12:29 AM MAINFRAME ARCHITECT) Phosphorus 3.2 2.3 - 4.7 mg/dL [facility] Specimen Blood Performing Organization Address City/[facility] Ph one Number [address] [facility] [place] * Lipase (10/27/2019 12:29 AM MAINFRAME ARCHITECT) Lipase 7 (L) 8 - 78 U/L [facility] Specimen Blood Performing Organization Address City/[facility] Ph one Number [facility] [address] [facility] * Hemoglobin A1c (10/27/2019 12:29 AM MAINFRAME ARCHITECT) Hemoglobin A1C 8.7 (H) 4.3 - 6.1 % [facility] Specimen Blood Performing Organization Address City/[facility] [place] [place] Ph one Number [address] [facility] * Amylase (10/27/2019 12:29 AM MAINFRAME ARCHITECT) Amylase 28 25 - 125 U/L [facility] Specimen Blood Performing Organization Address [facility] one Number [address] [facility] * Hepatic function panel (10/27/2019 12:29 AM MAINFRAME ARCHITECT) Protein, Total 6.9 6.0 - 8.3 gm/dL [facility] Albumin 4.4 3.5 - 5.0 g/dL [facility] Total Bilirubin 0.4 0.2 - 1.2 mg/dL [facility] Bilirubin, Direct 0.2 0.1 - 0.5 mg/dL [facility] Alkaline Phosphatase 81 40 - 150 U/L [facility] AST 15 5 - 34 U/L [facility] ALT 13 6 - 55 U/L [facility] Specimen Blood Performing Organization Address [facility] Ph one Number [address] [facility] after 06/11/2019 Insurance Payer Benefit Subscriber ID Type Phone Address Plan / Group [employer] - MGD CARE [employer] COH xxxxxxxxxxx HMO/POS NETWORK BLUE CROSS/BLUE SHIELD BCBS PPO xxxxxxxxxxxx PPO [address] [place] [address] CHOICE [phone] Advance Directives For more information, please contact: [facility] [address] [place] [address] Date Inactivated Comments Code Status Date Activated 10/28/2019 8:20 PM Full Code 10/26/2019 11:48 PM This code status was determined by: Patient 03/11/2018 4:41 PM Full Code 03/09/2018 1:27 AM This code status was determined by: Patient
--- OUTSIDE RECORDS SUMMARY | 2020-06-11 23:36 | XMS REPORT | Continuity of Care Document ---
Author Author [facility] t Organization [facility] Address [address] [place] [id number] Phone Unavailable Care Team Providers Care Meter Record Clerk Name Role Phone NO, PCP PCP Unavailable ISA PIEDRA Attphys Unavailable Esther De Leon MD, Isa Attphys [phone] Zenaida DOWLING, Veronica Attphys [phone] Edith Tran MD Attphys Sixto Stewart DO Attphys Per DAVID Attphys Unavailable Harvey JACOB Attphys Unavailable Khurram MIRANDA Attphys Unavailable Carissa ARIAS Attphys Unavailable FREDY WHIPPLE Attphys Unavailable ANA CAMEJO Attphys Unavailable Prezas, Marco Antonio Attphys Unavailable ISA PIEDRA Admphys Unavailable FREDY WHIPPLE Admphys Unavailable ANA CAMEJO Admphys Unavailable Prezas, Marco Antonio Admphys Unavailable Payers Payer Name Policy Type Policy Number Effective Date Expiration Date S eli [facility] [id number] [facility] CIGNA - MGD CARECIGNA COH NETWORKxxxxxxxxxxxHMO/POS xxxxxx xxxxx [facility] BLUE CROSS/BLUE SHIELDBCBS PPO POS EPO C [id number] [address], [place] [address] xxxxxxxxxxxx [facility] [id number] 2018 00:00:00 [facility] [id number] 2018 00:00: 00 [facility] Blue Cross [facility] Ppo [id number] 2017 00:00:00 [facility] Problems Condition Name Condition Details Condition Category Status Onset Date Resolution Date Last Treatment Date Treating Clinician Comments Source Hypoglycemia due to type 1 diabetes mellitus Hypoglyce bruce due to type 1 diabetes mellitus Disease Active 2019-10-28 00:00:00 [facility] Gastroparesis Gastroparesis Disease Active 2019-10-27 00:00:00 [facility] Methamphetamine abuse Methamphetamine abuse Disease Active 201 07-23-17 00:00:00 [facility] Marijuana abuse Marijuana abuse Disease Active 2019-10-27 00:00:00 [facility] Medically noncompliant Medically noncompliant Disease Active 2019-10-27 00:00:00 [facility] Diabetic ketoacidosis Diabetic ketoacidosis Disease Active 201 07-23-16 00:00:00 [facility] DKA (diabetic ketoacidoses) DKA (diabetic ketoacidoses) Disease Active 2018-03-09 00:00:00 [facility] High anion gap metabolic acidosis High anion gap metabolic acido sis Disease Active 2018-03-09 00:00:00 [facility] Hyperglycemia Hyperglycemia Disease Active 2018-03-09 00:00:00 [facility] Diabetic ketoacidosis DKA (diabetic ketoacidoses) Problem Acti ve 2015-12-28 00:00:00 [facility] Diabetic ketoacidosis Diabetic keto-acidosis Problem Active 20 26-07-09 00:00:00 [facility] Dehydration Dehydration Problem Active [facility] Noncompliance with medication regimen Non compliance w medic ation regimen Problem Active [facility] Vomiting Vomiting Problem Active [facility] Urinary tract infection UTI (urinary tract infection) Problem Active [facility] Allergies, Adverse Reactions, Alerts Allergy Name Allergy Type Status Severity Reaction(s) Onset Date Inacti ve Date Treating Clinician Comments Source No Known Allergies DA Active U 2019-01-03 00:00:00 [facility] No Known Allergies DA Active U 2018-10-05 00:[facility]:00 [facility] Family History Family Member Diagnosis Comments Start Date Stop Date Source Natural father Diabetes [facility] Natural mother Arthritis [facility] Social History Social Habit Start Date Stop Date Quantity Comments Source Sex Assigned At [facility] Cigarettes smoked current (pack per day) - Reported 00:00:00 2018-03-09 00:00:00 [facility] Smoking Status Start Date Stop Date Source Current every day smoker 2018-03-09 00:00:00 [facility] Medications Ordered Medication Name Filled Medication Name Start Date Stop Da te Current Medication? Ordering Clinician Indication Dosage Frequency Signature (SIG) Comments Components Source ketone blood test Strp 2019-10-28 00:00:00 Yes 1{strip} 1 strip by Miscellaneous route as needed. [facility] glucagon 1 mg injection 2019-10-28 00:00:00 2019-10-28 23:59:00 No 1mg Inject 1 mg intramuscularly once for 1 dose. [facility] Insulin Detemir (Levemir) 100 Unit/1 Ml VIAL Insulin D etemir (Levemir) 100 Unit/1 Ml VIAL 2018-07-26 10:21:00 Yes 14 Every 12 Hours [facility] Famotidine Famotidine 2018-07-26 10:21:00 2018-09-09 00:00:00 No 20 Twice Daily Before Meals [facility] insulin NPH 100 unit/mL (3 mL) InPn 2018-03-09 01:31:53 Yes type 1 diabetes mellitus 15U Q.5D Inject 15 Units subcutaneously 2 (two) [facility] daily. [facility] regular (HUMULIN R,NOVOLIN R) 100 unit/mL injection 2018-03-09 01:31:10 Yes Inject sub cutaneously 3 (three) times daily before meals Use as directed. Sliding scale . [facility] Insulin Human Nph (Humulin N) 100 Units/Ml ML Insulin Human Nph (Humulin N) 100 Units/Ml ML 2017-11-13 08:18:00 2018-05-16 00:00:00 No 15 Every 12 Hours [facility] Insulin Regular, Human (Humulin R) 100 Unit/1 Ml VIAL Insulin Regular, Human (Humulin R) 100 Unit/1 Ml VIAL 2017-11-13 08:18:00 2018-05-16 00:00:00 No 0 Before Meals And At Bedtime [facility] Metoclopramide Hcl Metoclopramide Hcl 2017-11-13 08:18:00 00:00:00 No 10 Three Times Daily With Meals as needed f or Nausea And Vomiting [facility] Insulin Detemir Insulin Detemir 2017-01-05 17:35:00 2017-11-13 00:00:00 No 14 Bedtime [facility] Insulin Human Lispro (Humalog) 100 Units/Ml ML Insulin Human Lispro (Humalog) 100 Units/Ml ML 2017-01-05 17:35:00 2017-11-13 00:00:00 No 0 Before Meals And At Bedtime [facility] Insulin Detemir Insulin Detemir 2017-01-05 17:35:00 2017-11-08 00:00:00 No 10 Every Morning [facility] Potassium Chloride (Klor-Con M20) 20 Meq TABCR Potassi um Chloride (Klor-Con M20) 20 Meq TABCR 2017-01-05 17:35:00 2017-11-08 00:00:00 No 20 Use As Directed [facility] Insulin Detemir Insulin Detemir 2016-01-02 14:07:00 2017-11-13 00:00:00 No 10 Every Morning [facility] Insulin Detemir Insulin Detemir 2016-01-02 14:07:00 2017-01-05 00:00:00 No 16 Bedtime [facility] Insulin Detemir (Levemir) 100 Unit/1 Ml VIAL Insulin D etemir (Levemir) 100 Unit/1 Ml VIAL 2016-01-01 10:33:00 2016-01-01 00:00:00 No 1 0 Every Morning [facility] Insulin Detemir (Levemir) 100 Unit/1 Ml VIAL Insulin D etemir (Levemir) 100 Unit/1 Ml VIAL 2016-01-01 10:33:00 2016-01-01 00:00:00 No 16 Bedtime [facility] Insulin Lispro (Humalog) 100 Unit/1 Ml CARTRIDGE Insul in Lispro (Humalog) 100 Unit/1 Ml CARTRIDGE Yes [facility] Metoclopramide Hcl (Reglan) 5 Mg TABLET Metoclopramide Hcl ( Reglan) 5 Mg TABLET Yes 5 Before Meals And At Bedtime [facility] Ondansetron Hcl Ondansetron Hcl Yes 4 Three Times A Day as needed for Nausea And Vomiting [facility] Insulin Glargine (Lantus 3ML Pen) 100 Units/1 Ml INJ I nsulin Glargine (Lantus 3ML Pen) 100 Units/1 Ml INJ 2018-07-26 00:00:00 No 12 Twice A Day [facility] Ondansetron (Zofran Odt) 4 Mg TAB.RAPDIS Ondansetron ( Zofran Odt) 4 Mg TAB.RAPDIS 2018-07-23 00:00:00 No 4 Every 6 Hours [facility] Insulin Detemir (Levemir) 100 Unit/1 Ml VIAL Insulin D etemir (Levemir) 100 Unit/1 Ml VIAL 2018-05-16 00:00:00 No [facility] Insulin Aspart (Novolog) 100 Unit/1 Ml CARTRIDGE Insul in Aspart (Novolog) 100 Unit/1 Ml CARTRIDGE 2016-01-01 00:00:00 No 10 Befo re Meals [facility] Insulin Detemir (Levemir) 100 Unit/1 Ml VIAL Insulin D etemir (Levemir) 100 Unit/1 Ml VIAL 2016-01-01 00:00:00 No 10 Every Mor mis [facility] Insulin Detemir (Levemir) 100 Unit/1 Ml VIAL Insulin D etemir (Levemir) 100 Unit/1 Ml VIAL 2016-01-01 00:00:00 No 16 Bedtime [facility] Insulin Regular, Human (Novolin R) 100 Unit/1 Ml VIAL Insulin Regular, Human (Novolin R) 100 Unit/1 Ml VIAL 2015-07-24 00:00:00 No [facility] Vital Signs Vital Name Observation Time Observation Value Comments Source Weight 2020-05-12 19:56:00 145 [lb_av] [facility] BMI (Body Mass Index) 2020-05-12 19:56:00 21.4 kg/m2 [facility] Systolic blood pressure 2019-10-28 12:34:00 114 mm[Hg] [facility] Diastolic blood pressure 2019-10-28 12:34:00 73 mm[Hg] [facility] Heart rate 2019-10-28 12:34:00 79 /min [facility] Body temperature 2019-10-28 12:34:00 35.94 Shaina [facility] Respiratory rate 2019-10-28 12:34:00 18 /min [facility] Oxygen saturation in Arterial blood by Pulse oximetry 2018-11 12:34:00 [facility] Measured 2019-10-28 05:36:00 59 kg [facility] BMI 2019-10-28 05:36:00 18.14 kg/m2 [facility] Body height 2019-10-28 00:00:00 180.3 cm [facility] Procedures Procedure Date / Time Performed Performing Clinician Sour e RHYTHM STRIP - SCAN 2019-10-30 09:11:22 ProviderSylvia [facility] POCT-GLUCOSE METER 2019-10-28 12:35:00 Yonathan Stewart [facility] POCT-GLUCOSE METER 2019-10-28 08:57:00 Yonathan Stewart [facility] BASIC METABOLIC PANEL (7) 2019-10-28 04:59:00 Leatha Green [facility] MAGNESIUM 2019-10-28 04:59:00 Leatha Green [facility] POCT-GLUCOSE METER 2019-10-27 22:23:00 Yonathan Stewart [facility] POCT-GLUCOSE METER 2019-10-27 17:18:00 Yonathan Stewart [facility] POCT-GLUCOSE METER 2019-10-27 12:21:00 Yonathan Stewart [facility] POCT-GLUCOSE METER 2019-10-27 11:52:00 Yonathan Stewart [facility] POCT-GLUCOSE METER 2019-10-27 10:19:00 Diya Estevez i [facility] POCT-GLUCOSE METER 2019-10-27 09:10:00 Isa Piedra [facility] POCT-GLUCOSE METER 2019-10-27 07:56:00 Isa Piedra [facility] POCT-GLUCOSE METER 2019-10-27 06:13:00 Isa Piedra [facility] URINALYSIS W/ REFLEX URINE CULTURE 2019-10-27 04:59:00 Dick Sanders [facility] RAPID DRUG SCREEN, URINE 2019-10-27 04:59:00 Alexsandra Sanders [facility] POCT-GLUCOSE METER 2019-10-27 04:59:[facility] 2019-10-27 04:56:00 Alexsandra Sanders [facility] BASIC METABOLIC PANEL (7) 2019-10-27 04:24:00 Alexsandra Sanders [facility] MAGNESIUM 2019-10-27 04:24:00 Alexsandra Sanders [facility] BLOOD GAS, VENOUS 2019-10-27 04:24:00 Alexsandra Sanders [facility] KETONE, BLOOD 2019-10-27 04:24:00 [facility] & AUTO DIFFERENTIAL 2019-10-27 04:24:00 [facility] PO[facility]SE [facility]ER 2019-10-27 02:32:00 Esther De Leon [facility] POCT-GLUCOSE METER 2019-10-27 01:31:00 Esther De Leon [facility] BLOOD GAS, VENOUS 2019-10-27 00:41:00 Alexsandra Sanders [facility] BLOOD CULTURE 2019-10-27 00:29:00 Alexsandra Sanders [facility] POTASSIUM 2019-10-27 00:29:00 Alexsandra Sanders [facility] PHOSPHORUS 2019-10-27 00:29:00 Shraddha Sanderslly [facility] KETONE, BLOOD 2019-10-27 00:29:00 Alexsandra Sanders [facility] BASIC METABOLIC PANEL (7) 2019-10-27 00:29:00 Alexsandra Sanders [facility] MAGNESIUM 2019-10-27 00:29:00 Shraddha Sanderslly [facility] LACTIC ACID, VENOUS 2019-10-27 00:29:00 Alexsandra Sanders [facility] AMYLASE 2019-10-27 00:29:00 Alexsandra Sanders [facility] LIPASE 2019-10-27 00:29:00 [facility] TSH/FREE T4 IF INDICATED 2019-10-27 00:29:00 Alexsandra Sanders [facility] HEMOGLOBIN A1C 2019-10-27 00:29:00 WittAlexsandra [facility] TROPONIN I 2019-10-27 00:29:00 TommyAlexsandra [facility] HEPATIC FUNCTION PANEL 2019-10-27 00:29:00 Tommy Alexsandra [facility] CBC W/PLT COUNT & AUTO DIFFERENTIAL 2019-10-27 00:29:00 Alexsandra Sanders [facility] POCT-GLUCOSE METER 2019-10-27 00:01:00 Isa Piedra [facility] Computed tomography of brain without radiopaque contrast 201 07-23-16 00:00:00 IMELDA DAVID [facility] Encounters Start Date/Time End Date/Time Encounter Type [facility] Encounter ID Source 2020-05-12 19:50:00 2020-05-12 21:30:00 Departed Emergency Room [facility] [id number] [facility] 2019-10-26 16:48:00 2019-10-26 22:20:00 Departed Emergency Room 1 IMELDA DAVID [facility] [id number] [facility] 2019-06-22 20:40:00 2019-06-24 12:22:00 Discharged Inpatient 1 NIDIA MIYACHERRIE [facility] [id number] [facility] 2019-05-19 13:54:00 2019-05-21 12:10:00 Discharged Inpatient 1 KEYON MIRANDA [facility] [id number] [facility] 2019-03-02 19:48:00 2019-03-03 08:28:00 Departed Emergency Room [facility] [id number] [facility] 2019-01-30 20:21:00 2019-02-02 13:21:00 Discharged Inpatient [facility] [id number] [facility] 2018-09-09 23:28:00 2018-09-13 10:43:00 Discharged Inpatient 1 SAMUEL ARIAS [facility] [id number] [facility] 2018-07-23 14:06:00 2018-07-26 12:33:00 Discharged Inpatient [facility] [id number] [facility] 2018-05-16 13:33:00 2018-05-19 09:34:00 Discharged Inpatient [facility] [id number] [facility] 2018-04-23 20:40:00 2018-04-23 22:07:00 Departed Emergency Room [facility] [id number] [facility] 2018-03-08 19:46:00 2018-03-09 00:27:00 Departed Emergency Room [facility] [id number] [facility] 2018-01-26 20:28:00 2018-01-29 15:45:00 Discharged Inpatient ER SAMEUL ARIAS [facility] [id number] [facility] 2017-11-08 23:30:00 2017-11-13 10:52:00 Discharged Inpatient ER ANA CAMEJO [facility] [id number] [facility] Results Test Description Test Time Test Comments Results Result Comments Source Blood leukocytes automated count (number/volume) 2020-05-12 20:04:00 Test Item White Blood Count (test code = 6690-2) 9.89 4.8-10.8 [facility] erythrocytes automated count (number/volume)2020-05-12 20:04:00* Test Item Value Reference Range Interpretation Comments Red Blood Count (test code = 789-8) 5.99 4.3-5.7 [facility]Blood hemoglobin measurement (moles/volume)2020-05-12 20:04:00* Test Item Value Reference Range Interpretation Comments Hemoglobin (test code = 93028-5) 18.0 14.0-18.0 [facility] HospitalAutomated blood hematocrit (volume fraction)2020-05-12 20:04:00* Test Item Value Reference Range Interpretation Comments Hematocrit (test code = 4544-3) 49.6 38.2-49.6 [facility] HospitalAutomated erythrocyte mean corpuscular [id number] 20:04:00* Test Item Value Reference Range Interpretation Comments Mean Corpuscular Volume (test code = 787-2) 82.8 81-99 [facility] HospitalAutomated erythrocyte mean corpuscular hemoglobin (mass per erythrocyte)2020-05-12 20:04:00* Test Item Value Reference Range Interpretation Comments Mean Corpuscular Hemoglobin (test code = 785-6) 30.1 28-32 [facility] HospitalAut[facility] erythrocyte mean corpuscular hemoglobin concentration measurement (mass/volume)2020-05-12 20:04:00* Test Item Value Reference Range Interpretation Comments Mean Corpuscular Hemoglobin Concent (test code = 786-4) 36.3 31-35 [facility] HospitalRDW [id number]-Wfh6241-23-02 20:04:00* Test Item Value Reference Range Interpretation Comments Red Cell Distribution Width (test code = 85835-0) 12.2 11.7 -14.4 [facility]ed blood platelet count (count/volume)2020-05-12 20:04:00* Test Item Value Reference Range Interpretation Comments Platelet Count (test code = 777-3) 272 140-360 [facility] HospitalAutcarolinas continuecare [facility] mountained blood segmented neutrophil count as percentage of total pqooegdtra8670-45-87 20:04:00* Test Item Value Reference Range Interpretation Comments Neutrophils (%) (Auto) (test code = 56808-0) 68.4 38.7-80.0 [facility] HospitalAutomated blood lymphocyte count as percentage ot total badhhfbwfu0644-90-93 20:04:00* Test Item Value Reference Range Interpretation Comments Lymphocytes (%) (Auto) (test code = 736-9) 21.7 18.0-39.1 [facility] HospitalAutomated blood monocyte count as percentage of total xankwzlmpa8381-15-30 20:04:00* Test Item Value Reference Range Interpretation Comments Monocytes (%) (Auto) (test code = 5905-5) 8.7 4.4-11.3 [facility] HospitalAutomated blood eosinophil count as percentage of total lfedguteow8809-19-05 20:04:00* Test Item Value Reference Range Interpretation Comments Eosinophils (%) (Auto) (test code = 713-8) 0.5 0.0-6.0 [facility] HospitalAutomated blood basophil count as percentage of total catpmnzjzu4112-66-37 20:04:00* Test Item Value Reference Range Interpretation Comments Basophils (%) (Auto) (test code = 706-2) 0.1 0.0-1.0 [facility] HospitalFluoroscopic procedure less than one hour [id number] 20:04:00* Test Item Value Reference Range Interpretation Comments IM GRANULOCYTES % (test code = IM GRANULOCYTES %) 0.6 0.0- 1.0 [facility] HospitalAutomated blood neutrophil count 2020-05-12 20:04:00* Test Item Value Reference Range Interpretation Comments Neutrophils # (Auto) (test code = 751-8) 6.8 2.1-6.9 [facility] HospitalBlood lymphocytes count (number/volume) 2020-05-12 20:04:00* Test Item Value Reference Range Interpretation Comments Lymphocytes # (Auto) (test code = 93947-9) 2.2 1.0-3.2 [facility] HospitalBlood monocytes automated count (number/volume)2020-05-12 20:04:00* Test Item Value Reference Range Interpretation Comments Monocytes # (Auto) (test code = 742-7) 0.9 0.2-0.8 [facility] HospitalAutomated blood eosinophil count 2020-05-12 20:04:00* Test Item Value Reference Range Interpretation Comments Eosinophils # (Auto) (test code = 711-2) 0.1 0.0-0.4 [facility] HospitalAutomated blood basophil count (count/volume)2020-05-12 20:04:00* Test Item Value Reference Range Interpretation Comments Basophils # (Auto) (test code = 704-7) 0.0 0.0-0.1 [facility] HospitalFluoroscopic procedure less than one hour [id number] 20:04:00* Test Item Value Reference Range Interpretation Comments Absolute Immature Granulocyte (auto (navya t code = Absolute Immature Granulocyte (auto) 0.06 0-0.1 [facility] HospitalUrine color pirqrxjfzjofj4553-29-04 20:04:00* Test Item Value Reference Range Interpretation Comments Urine Color (test code = 5778-6) YELLOW YELLOW [facility] HospitalUrine [id number] 20:04:00* Test Item Value Reference Range Interpretation Comments Urine Clarity (test code = 57540-9) SL CLOUDY CLEAR [facility] Hospitalpecific gravity of Urine by Test strip 2020-05-12 20:04:00* Test Item Value Reference Range Interpretation Comments Urine Specific [place] (test code = 5811-5) 1.030 1.010-1.02 5 [facility] HospitalUrine pH measurement by automated test [id number] 20:04:00* Test Item Value Reference Range Interpretation Comments Urine pH (test code = 63834-2) 6.5 5-7 [facility] HospitalUrine leukocyte esterase detection by kysoghiy4507-11-86 20:04:00* Test Item Value Reference Range Interpretation Comments Urine Leukocyte Esterase (test code = 5799-2) NEGATIVE NEGATIVE [facility] HospitalUrine nitrite [id number] 20:04:00* Test Item Value Reference Range Interpretation Comments Urine Nitrite (test code = 27689-9) NEGATIVE NEGATIVE [facility] HospitalUrine protein measurement by test strip (mass/volume)2020-05-12 20:04:00* Test Item Value Reference Range Interpretation Comments Urine Protein (test code = 5804-0) 1+ NEGATIVE [facility] HospitalUrine glucose zvavmmirx2998-49-51 20:04:00* Test Item Value Reference Range Interpretation Comments Urine Glucose (UA) (test code = 2349-9) 2+ NEGATIVE [facility] HospitalUrine ketones detection by automated test [id number] 20:04:00* Test Item Value Reference Range Interpretation Comments Urine Ketones (test code = 01150-6) 3+ NEGATIVE [facility] HospitalUrine urobilinogen measurement by test strip (mass/volume)2020-05-12 20:04:00* Test Item Value Reference Range Interpretation Comments Urine Urobilinogen (test code = 74046-8) 0.2 0.2-1 [facility] HospitalUrine total bilirubin measurement (mass/volume)2020-05-12 20:04:00* Test Item Value Reference Range Interpretation Comments Urine Bilirubin (test code = 1978-6) MODERATE NEGATIVE [facility] HospitalUrine erythrocytes amwshipxv0559-20-44 20:04:00* Test Item Value Reference Range Interpretation Comments Urine Blood (test code = 99220-3) NEGATIVE NEGATIVE [facility] HospitalAutomated urine sediment leukocyte count by microscopy (number/high power field)2020-05-12 20:04:00* Test Item Value Reference Range Interpretation Comments Urine WBC (test code = 5821-4) NONE 0-5 [facility] HospitalErythrocytes detection in urine sediment by light godrtnmqod2821-70-71 20:04:00* Test Item Value Reference Range Interpretation Comments Urine RBC (test code = 42241-1) 0-5 0-5 [facility] HospitalBacteria detection in urine sediment by light pgpgscvwbb3792-07-03 20:04:00* Test Item Value Reference Range Interpretation Comments Urine Bacteria (test code = 33352-0) MODERATE NONE [facility] HospitalEpithelial cells detection in urine sediment by light iebunsbyot5196-46-32 20:04:00* Test Item Value Reference Range Interpretation Comments Urine Epithelial Cells (test code = 47097-9) NONE NONE [facility] Hospitalerum or plasma sodium measurement (moles/volume)2020-05-12 20:04:00* Test Item Value Reference Range Interpretation Comments Sodium Level (test code = 2951-2) 124 136-145 [facility] Hospitalerum or plasma potassium measurement (moles/volume)2020-05-12 20:04:00* Test Item Value Reference Range Interpretation Comments Potassium Level (test code = 2823-3) 4.5 3.5-5.1 [facility] Hospitalerum or plasma chloride measurement (moles/volume)2020-05-12 20:04:00* Test Item Value Reference Range Interpretation Comments Chloride Level (test code = 2075-0) 91 98-107 [facility] plasma carbon dioxide, total measurement (moles/volume)2020-05-12 20:04:00* Test Item Value Reference Range Interpretation Comments Carbon Dioxide Level (test code = 2028-9) 13 22-29 [facility] or plasma anion [id number] 20:04:00* Test Item Value Reference Range Interpretation Comments Anion Gap (test code = 73891-9) 24.5 8-16 [facility] or plasma urea nitrogen measurement (mass/volume)2020-05-12 20:04:00* Test Item Value Reference Range Interpretation Comments Blood Urea Nitrogen (test code = 3094-0) 26 7-26 [facility] or plasma creatinine measurement (mass/volume)2020-05-12 20:04:00* Test Item Value Reference Range Interpretation Comments Creatinine (test code = 2160-0) 1.42 0.72-1.25 [facility] plasma urea nitrogen/creatinine mass [id number] 20:04:00* Test Item Value Reference Range Interpretation Comments BUN/Creatinine Ratio (test code = 3097-3) 18 6-25 [facility] HospitalEstimated glomerular filtration rate (GFR) dgjlzmkgabcjl4631-82-34 20:04:00* Test Item Value Reference Range Interpretation Comments Estimat Glomerular Filtration Rate (test code = 339871181) 60 >60 Ranges were taken from the National Kidney Disease Education Program and the [facility] literature.Reference ranges:60 or greater: Dvbbyf90-96 ( for 3 consecutive months): Chronic kidney disease 15 or less: Kidney failureUvalde Memorial HospitalGlucose bicnujvbhic9229-19-90 20:04:00* Test Item Value Reference Range Interpretation Comments Glucose Level (test code = XYO6192) 351 74-118 [facility] calcium measurement (mass/volume)2020-05-12 20:04:00* Test Item Value Reference Range Interpretation Comments Calcium Level (test code = 03594-0) 9.9 8.4-10.2 [facility] total bilirubin measurement (mass/volume)2020-05-12 20:04:00* Test Item Value Reference Range Interpretation Comments Total Bilirubin (test code = 1975-2) 1.5 0.2-1.2 [facility] HospitalFluoroscopic procedure less than one hour [id number] 20:04:00* Test Item Value Reference Range Interpretation Comments Aspartate Amino Transf (AST/SGOT) (test code = Aspartate Amino Transf (AST/SGOT)) 19 5-34 [facility] or plasma alanine aminotransferase measurement (enzymatic activity/volume)2020-05-12 20:04:00* Test Item Value Reference Range Interpretation Comments Alanine Aminotransferase (ALT/SGPT) (test code = 1742-6) 24 0-55 [facility] protein measurement (mass/volume)2020-05-12 20:04:00* Test Item Value Reference Range Interpretation Comments Total Protein (test code = 2885-2) 8.6 6.5-8.1 [facility] or plasma albumin measurement (mass/volume)2020-05-12 20:04:00* Test Item Value Reference Range Interpretation Comments Albumin (test code = 1751-7) 5.0 3.5-5.0 [facility] HospitalPlasma globulin measurement (mass/volume) 2020-05-12 20:04:00* Test Item Value Reference Range Interpretation Comments Globulin (test code = 28410-9) 3.6 2.3-3.5 [facility] or plasma albumin/globulin mass rzeoc1411-32-53 20:04:00* Test Item Value Reference Range Interpretation Comments Albumin/Globulin Ratio (test code = 1759-0) 1.4 0.8-2.0 [facility] or plasma alkaline phosphatase measurement (enzymatic activity/volume)2020-05-12 20:04:00* Test Item Value Reference Range Interpretation Comments Alkaline Phosphatase (test code = 6768-6) 108 40-150 [facility] or plasma creatine kinase measurement (enzymatic activity/volume)2020-05-12 20:04:00* Test Item Value Reference Range Interpretation Comments Creatine Kinase (test code = 2157-6) 77 30-200 [facility] or plasma creatine kinase MB measurement (mass/volume)2020-05-12 20:04:00* Test Item Value Reference Range Interpretation Comments Creatine Kinase MB (test code = 35925-3) 1.60 0-5.0 [facility] HospitalTroponin I measurement by highly sensitive enzyme pyfqglqrneh0390-53-08 20:04:00* Test Item Value Reference Range Interpretation Comments Troponin I (test code = 34666-8) < 0.001 0-0.300 [facility] HospitalCapillary blood glucose measurement by glucometer (mass/volume)2020-05-12 20:03:00* Test Item Value Reference Range Interpretation Comments Bedside Glucose (test code = 11607-3) 333 70-120 Meter ID: [id number] Memorial Hospital- XR CHEST 1 V 2020-01-07 16:34:00 FAX: Aleksandr Sánchez MD [place]: B St: PRE Name: KEVIN SARGENT [facility] : [birth year] Age/S: 24/M [address] [facility] Unit #: [id number] Loc: [place] [address] Phys: Aleksandr Sánchez MD Acct: [id number] Dis Date: Status: PRE ER PHONE #: [phone] Exam Date: 01/07/2020 5369 FAX #: [phone] Reason: ABDOMINAL PAIN EXAMS: CPT CODE: [id number] XR CHEST 1 V 46851 REASON FOR EXAM: ABDOMINAL PAIN Exam Order Date: 01/07/2020 3:46 PM Ordering M. DElizabeth: Aleksandr Sánchez MD PROCEDURE: - XR CHEST 1 V PARTH RISON: Chest x-ray January 03, 2019 FINDINGS: The lungs a re clear. There is no pleural effusion or pneumothorax. Pulmonary vascula rity is within normal limits. Cardiomediastinal silhouette is norm al in size for technique. The mediastinal contours are within normal limit s. Musculoskeletal structures are within normal limits. The visualized upper abdomen is within normal limits. IMPRESSION: No acute cardiopulmonary process. Locati on: [facility] at 163 4 Reported and signed by: Nikolay López MD CC: Aleksandr Sánchez MD Technologist: RT RC(R) Trnscrd Date/Time/By: 01/07/2020 ( 8140) : By: [email or web address] Orig Print D/T: S: 01/07/2020 (6747) PAGE 1 Signed Report Blood Culture - Routine (Left Venipuncture)2019-11-01 08:00:00* Test Item Value Reference Range Interpretation Comments Result (test code = 6463-4) No growth in 5 days [facility] CampusBLOOD [id number] 08:00:00* Test Item Value Reference Range Interpretation Comments CULTURE (BEAKER) (test code = 1095) No growth in 5 days BLOOD [id number] 04:01:00* Test Item Value Reference Range Interpretation Comments CULTURE (BEAKER) (test code = 1095) No growth in 5 days POC-Glucose ebpyg1268-76-00 12:47:00* Test Item Value Reference Range Interpretation Comments POC-Glucose Meter (test code = 1538) 159 mg/dL 70-110 H : TESTED AT [facility] [address] [facility], [address]: Account Receivable Associate/Emulsion Coater ID = [id number] for TOMMY SHARPE Lab Interpretation (test code = 86183-9) Abnormal [facility] CampusPOCT-GLUCOSE [id number] 12:47:00* Test Item Value Reference Range Interpretation Comments POC-GLUCOSE METER (BEAKER) (test code = 1538) 159 mg/dL 70-110 H : TESTED AT [facility] [address] [facility], [address]: Account Receivable Associate/Emulsion Coater ID = [id number] for TOMMY SHARPE POCT-GLUCOSE [id number] 09:08:00* Test Item Value Reference Range Interpretation Comments POC-GLUCOSE METER (BEAKER) (test code = 1538) 140 mg/dL 70-110 H : TESTED AT [facility] [address] [place] [place], [address]: Account Receivable Associate/Emulsion Coater ID = [id number] for TOMMY SHARPE Basic Metabolic Uhryi5981-87-98 06:23:00* Test Item Value Reference Range Interpretation Comments Sodium (test code = 2951-2) 135 meq/L 136-145 L Potassium (test code = 2823-3) 3.8 meq/L 3.5-5.1 Chloride (test code = 2075-0) 101 meq/L 98-107 CO2 (test code = 2027-9) 28 meq/L 22-29 BUN (test code = 3094-0) 13 mg/dL 7-21 Creatinine (test code = 2160-0) 0.71 mg/dL 0.57-1.25 Glucose (test code = 2345-7) 98 mg/dL 70-105 Calcium (test code = 58096-5) 8.5 mg/dL 8.4-10.2 EGFR (test code = 91193-1) 164 mL/min/1.73 sq m ESTIMATED GFR IS NOT ACCURATE CREATININE CLEARANCE IN PREDICTING GLOMERULAR FILTRATION RATE. ESTIMATED GFR IS NOT APPLICABLE FOR DIALYSIS PATIENTS. Lab Interpretation (test code = 87259-5) [facility]normal [facility]2019-[facility] 06:23:00* Test Item Value Reference Range Interpretation Comments MAGNESIUM (BEAKER) (test code = 627) 2.1 mg/dL 1.6-2.6 BASIC METABOLIC [id number] 06:23:00* Test Item Value Reference Range Interpretation Comments SODIUM (BEAKER) (test code = 381) 135 meq/L 136-145 L POTASSIUM (BEAKER) (test code = 379) 3.8 meq/L 3.5-5.1 CHLORIDE (BEAKER) (test code = 382) 101 meq/L 98-107 CO2 (BEAKER) (test code = 355) 28 meq/L 22-29 BLOOD UREA NITROGEN (BEAKER) (test code = 354) 13 mg/dL 7-21 CREATININE (BEAKER) (test code = 358) 0.71 mg/dL 0.57-1.25 GLUCOSE RANDOM (BEAKER) (test code = 652) 98 mg/dL 70-105 CALCIUM (BEAKER) (test code = 697) 8.5 mg/dL 8.4-10.2 EGFR (BEAKER) (test code = 1092) 164 mL/min/1.73 sq m ESTIMATED GFR IS NOT ACCURATE CREATININE CLEARANCE IN PREDICTING GLOMERULAR FILTRATION RATE. ESTIMATED GFR IS NOT APPLICABLE FOR DIALYSIS PATIENTS. Xdfpjgwkk5081-82-99 06:16:00* Test Item Value Reference Range Interpretation Comments Magnesium (test code = 73298-2) 2.1 mg/dL 1.6-2.6 Lab Interpretation (test code = 44784-6) Normal [facility] CampusMAGNESIUM2019-12-18 06:16:00* Test Item Value Reference Range Interpretation Comments MAGNESIUM (BEAKER) (test code = 627) 2.1 mg/dL 1.6-2.6 POCT-GLUCOSE [id number] 22:35:00* Test Item Value Reference Range Interpretation Comments POC-GLUCOSE METER (BEAKER) (test code = 1538) 224 mg/dL 70-110 H : TESTED AT [facility] [address] [facility], [address]: Account Receivable Associate/Emulsion Coater ID = [id number] for ANGE GREEN POCT-GLUCOSE [id number] 17:32:00* Test Item Value Reference Range Interpretation Comments POC-GLUCOSE METER (BEAKER) (test code = 1538) 211 mg/dL 70-110 H : TESTED AT [facility] [address] [facility], [address]: Account Receivable Associate/Emulsion Coater ID = [id number] for DA PACKER Hemoglobin [id number] 15:14:00* Test Item Value Reference Range Interpretation Comments Hemoglobin A1C (test code = 4548-4) 8.7 % 4.3-6.1 H Lab Interpretation (test code = 98341-2) Abnormal [facility] CampusHEMOGLOBIN [id number] 15:14:00* Test Item Value Reference Range Interpretation Comments HEMOGLOBIN A1C (BEAKER) (test code = 368) 8.7 % 4.3-6.1 H POCT-GLUCOSE [id number] 12:33:00* Test Item Value Reference Range Interpretation Comments POC-GLUCOSE METER (BEAKER) (test code = 1538) 251 mg/dL 70-110 H : TESTED AT [place] [address] [facility], [address]: Account Receivable Associate/Emulsion Coater ID = [id number] for VENU PORTILLO POCT-GLUCOSE [id number] 12:07:00* Test Item Value Reference Range Interpretation Comments POC-GLUCOSE METER (BEAKER) (test code = 1538) 282 mg/dL 70-110 H : TESTED AT [place] [address] [facility], [address]: Account Receivable Associate/Emulsion Coater ID = [id number] for DA PACKER Urinalysis w/Microscopic + Reflex to [id number] 11:37:00* Test Item Value Reference Range Interpretation Comments Color, UA (test code = 5778-6) Yellow Clarity, UA (test code = 5767-9) Clear Specific [place], UA (test code = 5811-5) 1.012 1.001-1.035 pH, UA (test code = 5803-2) 7.0 5.0-8.0 Protein, UA (test code = 30699-1) Negative Negative Glucose, UA (test code = 365) >1000 mg/dL Negative A Ketones, UA (test code = 2514-8) 40 mg/dL Negative A Bilirubin, UA (test code = 99474-8) Negative Negative Blood, UA (test code = 54695-2) Negative Negative Nitrite, UA (test code = 5802-4) Negative Negative Leukocytes, UA (test code = 5799-2) Negative Negative Urobilinogen, UA (test code = 68709-9) 3.0 mg/dL 0.2-1 H RBC, UA (test code = 17029-6) RBC:0-1/HPF WBC, UA (test code = 5821-4) WBC:1-2/HPF Specimen Source (test code = 2795) Lab Interpretation (test code = 15282-8) [facility]normal [facility]/ REFLEX URINE [id number] 11:37:00* Test Item Value Reference Range Interpretation Comments COLOR (BEAKER) (test code = 470) Yellow CLARITY (BEAKER) (test code = 469) Clear SPECIFIC GRAVITY UA (BEAKER) (test code = 468) 1.012 1.001-1 .035 PH UA (BEAKER) (test code = 467) 7.0 5.0-8.0 PROTEIN UA (BEAKER) (test code = 464) Negative Negative GLUCOSE UA (BEAKER) (test code = 365) >1000 mg/dL Negative A KETONES UA (BEAKER) (test code = 371) 40 mg/dL Negative A BILIRUBIN UA (BEAKER) (test code = 462) Negative Negative BLOOD UA (BEAKER) (test code = 461) Negative Negative NITRITE UA (BEAKER) (test code = 465) Negative Negative LEUKOCYTE ESTERASE UA (BEAKER) (test code = 466) Negative Negat jessika UROBILINOGEN UA (BEAKER) (test code = 463) 3.0 mg/dL 0.2-1.0 H RBC UA (BEAKER) (test code = 519) RBC:0-1/HPF WBC UA (BEAKER) (test code = 520) WBC:1-2/HPF SOURCE(BEAKER) (test code = 2795) POCT-GLUCOSE [id number] 11:23:00* Test Item Value Reference Range Interpretation Comments POC-GLUCOSE METER (BEAKER) (test code = 1538) 281 mg/dL 70-110 H : TESTED AT [address], [address]: Account Receivable Associate/Emulsion Coater ID = [id number] for PACKER DA POCT-GLUCOSE [id number] 09:21:00* Test Item Value Reference Range Interpretation Comments POC-GLUCOSE METER (BEAKER) (test code = 1538) 199 mg/dL 70-110 H : TESTED AT [address], [address]: Account Receivable Associate/Emulsion Coater ID = [id number] for VENU PORTILLO POCT-GLUCOSE [id number] 08:09:00* Test Item Value Reference Range Interpretation Comments POC-GLUCOSE METER (BEAKER) (test code = 1538) 58 mg/dL 70-110 L : TESTED AT [address], [address]: Account Receivable Associate/Emulsion Coater ID = [id number] for PACKER DA Rapid drug screen, [id number] 07:15:00* Test Item Value Reference Range Interpretation Comments Barbiturate Screen (test code = 29428-5) Negative Negative Benzodiazepine Screen (test code = 67869-9) Negative Negative Cocaine (Metab.) Screen (test code = 3397-7) Negative Negative Methadone Screen (test code = 42466-0) Negative Negative Opiate Screen (test code = 00009-2) Negative Negative Cannabinoid Screen (test code = 30486-2) Positive Negative A Amph/Methamph Screen (test code = 33009-8) Positive Negative A Phencyclidine Screen (test code = 13519-0) Negative Negative BEAU (test code = BEAU) DRUG CUTOFF C ONC.Cocaine 300 ng/mL Cannabinoid 50 ng/mLBenzodiazepine 200 ng/mLBarbiturate 200 ng/mLPhencyclidine 25 ng/mLOpiate 300 ng/mLMethadone 300 ng/mLAmphetamine/ 1000 ng/mL Methamphetamine This assay provides an unconfirmed qualitative test result for the clinical management of patients in emergency situations. Chain of custody not maintained. Some ttuh-xba-ithfbym medications, as well as adulterants, may cause inaccurate results. Clinical correlation should be applied. A more comprehensive drug screen or confirmation of a detected drug may be performed upon request. Lab Interpretation (test code = 13310-7) Abnormal [facility] CampusRAPID DRUG SCREEN, [id number] 07:15:00* Test Item Value Reference Range Interpretation Comments BARBITURATE URINE (BEAKER) (test code = 725) Negative Negative BENZODIAZEPINE SCREEN URINE (BEAKER) (test code = 726) Negative Negative COCAINE (METAB.) SCREEN (BEAKER) (test code = 1164) Negative Ne gative METHADONE SCREEN (BEAKER) (test code = 1436) Negative Negative OPIATE SCREEN URINE (BEAKER) (test code = 734) Negative Negativ e CANNABINOID SCREEN URINE (BEAKER) (test code = 727) Positive Ne gative A AMPH/METHAMPH SCREEN (BEAKER) (test code = 1438) Positive Negat jessika A PHENCYCLIDINE SCREEN URINE (BEAKER) (test code = 608) Negative Negative DRUG CUTOFF CONC.Cocaine 300 ng/mL Cannabinoid 50 ng/mLBenzodiazepine 200 ng/mLBarbiturate 200 ng/mLPh encyclidine 25 ng/mLOpiate 300 ng/mLMethadone 300 ng/mLAmphetamine/ 1000 ng/mL MethamphetamineThis assay provides a n unconfirmed qualitative test result for the clinical management of patients in emergency situations. Chain of custody not maintained. Some uawy-rlv-ynzhmwa me dications, as well as adulterants, may cause inaccurate results. Clinical correl ation should be applied. A more comprehensive drug screen or confirmation of a d etected drug may be performed upon request.POCT-GLUCOSE [id number] 06:24:00 * Test Item Value Reference Range Interpretation Comments POC-GLUCOSE METER (BEAKER) (test code = 1538) 74 mg/dL 70-110 : TESTED AT [facility] [address] [facility], [address]: Account Receivable Associate/Emulsion Coater ID = [id number] for ANGE GREEN [id number] 06:23:00* Test Item Value Reference Range Interpretation Comments MAGNESIUM (BEAKER) (test code = 627) 1.9 mg/dL 1.6-2.6 BASIC METABOLIC [id number] 06:23:00* Test Item Value Reference Range Interpretation Comments SODIUM (BEAKER) (test code = 381) 133 meq/L 136-145 L POTASSIUM (BEAKER) (test code = 379) 3.5 meq/L 3.5-5.1 CHLORIDE (BEAKER) (test code = 382) 98 meq/L 98-107 CO2 (BEAKER) (test code = 355) 29 meq/L 22-29 BLOOD UREA NITROGEN (BEAKER) (test code = 354) 7 mg/dL 7-21 CREATININE (BEAKER) (test code = 358) 0.68 mg/dL 0.57-1.25 GLUCOSE RANDOM (BEAKER) (test code = 652) 230 mg/dL 70-105 H CALCIUM (BEAKER) (test code = 697) 8.4 mg/dL 8.4-10.2 EGFR (BEAKER) (test code = 1092) 172 mL/min/1.73 sq m ESTIMATED GFR IS NOT ACCURATE CREATININE CLEARANCE IN PREDICTING GLOMERULAR FILTRATION RATE. ESTIMATED GFR IS NOT APPLICABLE FOR DIALYSIS PATIENTS. Ketone, [id number] 05:42:00* Test Item Value Reference Range Interpretation Comments Ketones, Blood (test code = 1103) 0.2 mmol/L <0.4 Lab Interpretation (test code = 32226-8) Normal [facility], [id number] 05:42:00* Test Item Value Reference Range Interpretation Comments KETONES, BLOOD (BEAKER) (test code = 1103) 0.2 mmol/L <0.4 CBC with platelet count + automated [id number] 05:33:00* Test Item Value Reference Range Interpretation Comments WBC (test code = 6690-2) 7.7 3.5- 10.5 K/L RBC (test code = 789-8) 4.07 4.63- 6.08 M/L L MCHC (test code = 786-4) 37.2 32.3- 36.5 GM/DL H Hematocrit (test code = 4544-3) 34.1 % 40.1-51 L MCV (test code = 787-2) 83.8 fL 79-92.2 MCH (test code = 785-6) 31.2 pg 25.7-32.2 RDW (test code = 788-0) 11.4 % 11.6-14.4 L Platelets (test code = 777-3) 240 150- 450 K/CU MM MPV (test code = 11181-4) 9.4 fL 9.4-12.4 nRBC (test code = 413) 0 0- 0 /100 WBC % Neutros (test code = 429) 56 % % Lymphs (test code = 430) 36 % % Monos (test code = 431) 6 % % Eos (test code = 432) 1 % % Baso (test code = 437) 0 % # Neutros (test code = 670) 4.34 1.78- 5.38 K/L # Lymphs (test code = 414) 2.80 1.32- 3.57 K/L # Monos (test code = 415) 0.44 0.30- 0.82 K/L # Eos (test code = 416) 0.07 0.04- 0.54 K/L # Baso (test code = 417) 0.02 0.01- 0.08 K/L Immature Granulocytes-Relative (test code = 2801) 0 % 0-1 Lab Interpretation (test code = 55480-6) Abnormal [facility]PLT [facility] & AUTO [id number] 05:33:00* Test Item Value Reference Range Interpretation Comments WHITE BLOOD CELL COUNT (BEAKER) (test code = 775) 7.7 K/ L 3.5- 10.5 RED BLOOD CELL COUNT (BEAKER) (test code = 761) 4.07 M/ L 4.63-6 .08 L HEMOGLOBIN (BEAKER) (test code = 410) 12.7 GM/DL 13.7-17.5 L HEMATOCRIT (BEAKER) (test code = 411) 34.1 % 40.1-51.0 L MEAN CORPUSCULAR VOLUME (BEAKER) (test code = 753) 83.8 fL 79. 0-92.2 MEAN CORPUSCULAR HEMOGLOBIN (BEAKER) (test code = 751) 31.2 pg 25.7-32.2 MEAN CORPUSCULAR HEMOGLOBIN CONC (BEAKER) (test code = 752) 37.2 GM/DL 32.3-36.5 H RED CELL DISTRIBUTION WIDTH (BEAKER) (test code = 412) 11.4 % 11.6-14.4 L PLATELET COUNT (BEAKER) (test code = 756) 240 K/CU MM 150-450 MEAN PLATELET VOLUME (BEAKER) (test code = 754) 9.4 fL 9.4-12 .4 NUCLEATED RED BLOOD CELLS (BEAKER) (test code = 413) 0 /100 WBC 0 -0 NEUTROPHILS RELATIVE PERCENT (BEAKER) (test code = 429) 56 % LYMPHOCYTES RELATIVE PERCENT (BEAKER) (test code = 430) 36 % MONOCYTES RELATIVE PERCENT (BEAKER) (test code = 431) 6 % EOSINOPHILS RELATIVE PERCENT (BEAKER) (test code = 432) 1 % BASOPHILS RELATIVE PERCENT (BEAKER) (test code = 437) 0 % NEUTROPHILS ABSOLUTE COUNT (BEAKER) (test code = 670) 4.34 K/ L 1.78-5.38 LYMPHOCYTES ABSOLUTE COUNT (BEAKER) (test code = 414) 2.80 K/ L 1.32-3.57 MONOCYTES ABSOLUTE COUNT (BEAKER) (test code = 415) 0.44 K/ L 0. 30-0.82 EOSINOPHILS ABSOLUTE COUNT (BEAKER) (test code = 416) 0.07 K/ L 0.04-0.54 BASOPHILS ABSOLUTE COUNT (BEAKER) (test code = 417) 0.02 K/ L 0. 01-0.08 IMMATURE GRANULOCYTES-RELATIVE PERCENT (BEAKER) (test code = 2801) 0 % 0-1 POCT-GLUCOSE [id number] 05:17:00* Test Item Value Reference Range Interpretation Comments POC-GLUCOSE METER (BEAKER) (test code = 1538) 252 mg/dL 70-110 H : TESTED AT [facility] [address] [facility], [address]: Account Receivable Associate/Emulsion Coater ID = [id number] for PA GIBBONS Blood gas, [id number] 05:15:00* Test Item Value Reference Range Interpretation Comments pH, Julio (test code = 2746-6) 7.47 7.32-7.42 H pCO2, Julio (test code = 755) 42 41- 51 mmHg pO2, Julio (test code = 2705-2) 61 25- 40 mmHg H O2 Sat, Julio (test code = 2711-0) 92.7 % 40-70 H HCO3, Julio (test code = 08550-1) 30 mmol/L 21-29 H Base Excess, Julio (test code = 1927-3) 5.3 mmol/L -2-3 H Patient Temperature (test code = 8310-5) 37.0 C FIO2 (test code = 1819) 21 % Lab Interpretation (test code = 24210-5) [facility]normal [facility], [id number] 05:15:00* Test Item Value Reference Range Interpretation Comments PH VENOUS (BEAKER) (test code = 701) 7.47 7.32-7.42 H PCO2 VENOUS (BEAKER) (test code = 755) 42 mmHg 41-51 PO2 VENOUS (BEAKER) (test code = 702) 61 mmHg 25-40 H O2 SATURATION VENOUS (BEAKER) (test code = 703) 92.7 % 40.0-7 0.0 H HCO3 VENOUS (BEAKER) (test code = 705) 30 mmol/L 21-29 H BASE EXCESS VENOUS (BEAKER) (test code = 704) 5.3 mmol/L -2.0-3.0 H PATIENT TEMPERATURE (BEAKER) (test code = 1818) 37.0 C FIO2 (BEAKER) (test code = 1819) 21.0 % POCT-GLUCOSE [id number] 03:15:00* Test Item Value Reference Range Interpretation Comments POC-GLUCOSE METER (BEAKER) (test code = 1538) 304 mg/dL 70-110 H : TESTED AT [facility] [address] [facility], [address]: Account Receivable Associate/Emulsion Coater ID = [id number] for PA GIBBONS POCT-GLUCOSE [id number] 01:45:00* Test Item Value Reference Range Interpretation Comments POC-GLUCOSE METER (BEAKER) (test code = 1538) 218 mg/dL 70-110 H : TESTED AT [facility] [address] [facility], [address]: Account Receivable Associate/Emulsion Coater ID = [id number] for PA GIBBONS TSH/Free T4 If [id number] 01:38:00* Test Item Value Reference Range Interpretation Comments TSH (test code = 05136-7) 0.97 0.35- 4.94 uIU/mL Lab Interpretation (test code = 47897-3) [facility]/FREE T4 IF [id number] 01:38:00* Test Item Value Reference Range Interpretation Comments THYROID STIMULATING HORMONE (BEAKER) (test code = 772) 0.97 uIU/mL 0.35-4.94 Lactic acid, [id number] 01:13:00* Test Item Value Reference Range Interpretation Comments Lactate, Venous (test code = 2872) 1.8 mmol/L 0.5-2.2 Lab Interpretation (test code = 74201-1) Normal [facility] CampusLACTIC ACID, [id number] 01:13:00* Test Item Value Reference Range Interpretation Comments LACTATE BLOOD VENOUS (2) (BEAKER) (test code = 2872) 1.8 mmol/L 0 .5-2.2 Troponin [id number] 01:10:00* Test Item Value Reference Range Interpretation Comments Troponin I (test code = 84771-5) <0.01 0-0.03 BEAU (test code = BEAU) Troponin I (TnI) levels must be interpreted in the context of the presenting symptoms and the clinical findings. Elevated TnI levels indicate myocardial damage, but are not specific for ischemic heart disease. Elevated TnI levels are seen in patients with other cardiac conditions (including myocarditis and congestive heart failure), and slight TnI elevations occur in patients with other conditions, including sepsis, renal failure, acidosis, acute neurological disease, and persistent tachyarrhythmia. Lab Interpretation (test code = 13237-8) [facility] CampusTROPONIN [id number] 01:10:00* Test Item Value Reference Range Interpretation Comments TROPONIN I (BEAKER) (test code = 397) < ng/mL 0.00-0.03 Troponin I (TnI) levels must be interpreted in the context of the presenting sym ptoms and the clinical findings. Elevated TnI levels indicate myocardial damage, but are not specific for ischemic heart disease. Elevated TnI levels are seen i n patients with other cardiac conditions (including myocarditis and congestive h eart failure), and slight TnI elevations occur in patients with other conditions , including sepsis, renal failure, acidosis, acute neurological disease, and per sistent tachyarrhythmia.KETONE, [id number] 01:05:00* Test Item Value Reference Range Interpretation Comments KETONES, BLOOD (BEAKER) (test code = 1103) 0.3 mmol/L <0.4 Hepatic function [id number] 01:03:00* Test Item Value Reference Range Interpretation Comments Protein, Total (test code = 2885-2) 6.9 6.0- 8.3 gm/dL Albumin (test code = 49095-2) 4.4 g/dL 3.5-5 Total Bilirubin (test code = 1975-2) 0.4 mg/dL 0.2-1.2 Bilirubin, Direct (test code = 1968-7) 0.2 mg/dL 0.1-0.5 Alkaline Phosphatase (test code = 6768-6) 81 U/L 40-150 AST (test code = 1920-8) 15 U/L 5-34 ALT (test code = 1742-6) 13 U/L 6-55 Lab Interpretation (test code = 58503-7) [facility] 01:03:00* Test Item Value Reference Range Interpretation Comments Amylase (test code = 1798-8) 28 U/L 25-125 Lab Interpretation (test code = 73223-5) [facility]2019-12-17 01:03:00* Test Item Value Reference Range Interpretation Comments Lipase (test code = 3040-3) 7 U/L 8-78 L Lab Interpretation (test code = 16719-2) Abnormal [facility]2019-12-17 01:03:00* Test Item Value Reference Range Interpretation Comments Phosphorus (test code = 2777-1) 3.2 mg/dL 2.3-4.7 Lab Interpretation (test code = 96948-8) [facility]assium2019-12-17 01:03:00* Test Item Value Reference Range Interpretation Comments Potassium (test code = 2823-3) 2.7 meq/L 3.5-5.1 L Lab Interpretation (test code = 30470-9) Abnormal [facility]OT[facility]SIUM2019-12-17 01:03:00* Test Item Value Reference Range Interpretation Comments POTASSIUM (BEAKER) (test code = 379) 2.7 meq/L 3.5-5.1 L [id number] 01:03:00* Test Item Value Reference Range Interpretation Comments MAGNESIUM (BEAKER) (test code = 627) 2.0 mg/dL 1.6-2.6 [id number] 01:03:00* Test Item Value Reference Range Interpretation Comments PHOSPHORUS (BEAKER) (test code = 604) 3.2 mg/dL 2.3-4.7 BASIC METABOLIC [id number] 01:03:00* Test Item Value Reference Range Interpretation Comments SODIUM (BEAKER) (test code = 381) 134 meq/L 136-145 L POTASSIUM (BEAKER) (test code = 379) 2.7 meq/L 3.5-5.1 L CHLORIDE (BEAKER) (test code = 382) 96 meq/L 98-107 L CO2 (BEAKER) (test code = 355) 29 meq/L 22-29 BLOOD UREA NITROGEN (BEAKER) (test code = 354) 7 mg/dL 7-21 CREATININE (BEAKER) (test code = 358) 0.70 mg/dL 0.57-1.25 GLUCOSE RANDOM (BEAKER) (test code = 652) 76 mg/dL 70-105 CALCIUM (BEAKER) (test code = 697) 8.7 mg/dL 8.4-10.2 EGFR (BEAKER) (test code = 1092) 167 mL/min/1.73 sq m ESTIMATED GFR IS NOT ACCURATE CREATININE CLEARANCE IN PREDICTING GLOMERULAR FILTRATION RATE. ESTIMATED GFR IS NOT APPLICABLE FOR DIALYSIS PATIENTS. HEPATIC FUNCTION [id number] 01:03:00* Test Item Value Reference Range Interpretation Comments TOTAL PROTEIN (BEAKER) (test code = 770) 6.9 gm/dL 6.0-8.3 ALBUMIN (BEAKER) (test code = 1145) 4.4 g/dL 3.5-5.0 BILIRUBIN TOTAL (BEAKER) (test code = 377) 0.4 mg/dL 0.2-1.2 BILIRUBIN DIRECT (BEAKER) (test code = 706) 0.2 mg/dL 0.1-0.5 ALKALINE PHOSPHATASE (BEAKER) (test code = 346) 81 U/L 40-150 AST (SGOT) (BEAKER) (test code = 353) 15 U/L 5-34 ALT (SGPT) (BEAKER) (test code = 347) 13 U/L 6-55 [id number] 01:03:00* Test Item Value Reference Range Interpretation Comments AMYLASE (BEAKER) (test code = 349) 28 U/L 25-125 [id number] 01:03:00* Test Item Value Reference Range Interpretation Comments LIPASE (BEAKER) (test code = 749) 7 U/L 8-78 L [id number] 01:00:00* Test Item Value Reference Range Interpretation Comments MAGNESIUM (BEAKER) (test code = 627) 2.0 mg/dL 1.6-2.6 BASIC METABOLIC [id number] 01:00:00* Test Item Value Reference Range Interpretation Comments SODIUM (BEAKER) (test code = 381) 136 meq/L 136-145 POTASSIUM (BEAKER) (test code = 379) 2.7 meq/L 3.5-5.1 L CHLORIDE (BEAKER) (test code = 382) 97 meq/L 98-107 L CO2 (BEAKER) (test code = 355) 28 meq/L 22-29 BLOOD UREA NITROGEN (BEAKER) (test code = 354) 6 mg/dL 7-21 L CREATININE (BEAKER) (test code = 358) 0.70 mg/dL 0.57-1.25 GLUCOSE RANDOM (BEAKER) (test code = 652) 73 mg/dL 70-105 CALCIUM (BEAKER) (test code = 697) 9.1 mg/dL 8.4-10.2 EGFR (BEAKER) (test code = 1092) 167 mL/min/1.73 sq m ESTIMATED GFR IS NOT ACCURATE CREATININE CLEARANCE IN PREDICTING GLOMERULAR FILTRATION RATE. ESTIMATED GFR IS NOT APPLICABLE FOR DIALYSIS PATIENTS. CBC W/PLT COUNT & AUTO [id number] 00:59:00* Test Item Value Reference Range Interpretation Comments WHITE BLOOD CELL COUNT (BEAKER) (test code = 775) 9.9 K/ L 3.5- 10.5 RED BLOOD CELL COUNT (BEAKER) (test code = 761) 4.58 M/ L 4.63-6 .08 L HEMOGLOBIN (BEAKER) (test code = 410) 14.1 GM/DL 13.7-17.5 HEMATOCRIT (BEAKER) (test code = 411) 39.1 % 40.1-51.0 L MEAN CORPUSCULAR VOLUME (BEAKER) (test code = 753) 85.4 fL 79. 0-92.2 MEAN CORPUSCULAR HEMOGLOBIN (BEAKER) (test code = 751) 30.8 pg 25.7-32.2 MEAN CORPUSCULAR HEMOGLOBIN CONC (BEAKER) (test code = 752) 36.1 GM/DL 32.3-36.5 RED CELL DISTRIBUTION WIDTH (BEAKER) (test code = 412) 11.4 % 11.6-14.4 L PLATELET COUNT (BEAKER) (test code = 756) 227 K/CU MM 150-450 MEAN PLATELET VOLUME (BEAKER) (test code = 754) 10.0 fL 9.4-12 .4 NUCLEATED RED BLOOD CELLS (BEAKER) (test code = 413) 0 /100 WBC 0 -0 NEUTROPHILS RELATIVE PERCENT (BEAKER) (test code = 429) 74 % LYMPHOCYTES RELATIVE PERCENT (BEAKER) (test code = 430) 20 % MONOCYTES RELATIVE PERCENT (BEAKER) (test code = 431) 6 % EOSINOPHILS RELATIVE PERCENT (BEAKER) (test code = 432) 0 % BASOPHILS RELATIVE PERCENT (BEAKER) (test code = 437) 0 % NEUTROPHILS ABSOLUTE COUNT (BEAKER) (test code = 670) 7.30 K/ L 1.78-5.38 H LYMPHOCYTES ABSOLUTE COUNT (BEAKER) (test code = 414) 1.95 K/ L 1.32-3.57 MONOCYTES ABSOLUTE COUNT (BEAKER) (test code = 415) 0.58 K/ L 0. 30-0.82 EOSINOPHILS ABSOLUTE COUNT (BEAKER) (test code = 416) 0.03 K/ L 0.04-0.54 L BASOPHILS ABSOLUTE COUNT (BEAKER) (test code = 417) 0.03 K/ L 0. 01-0.08 IMMATURE GRANULOCYTES-RELATIVE PERCENT (BEAKER) (test code = 2801) 1 % 0-1 BLOOD GAS, [id number] 00:58:00* Test Item Value Reference Range Interpretation Comments PH VENOUS (BEAKER) (test code = 701) 7.41 7.32-7.42 PCO2 VENOUS (BEAKER) (test code = 755) 52 mmHg 41-51 H PO2 VENOUS (BEAKER) (test code = 702) 27 mmHg 25-40 O2 SATURATION VENOUS (BEAKER) (test code = 703) 51.3 % 40.0-7 0.0 HCO3 VENOUS (BEAKER) (test code = 705) 32 mmol/L 21-29 H BASE EXCESS VENOUS (BEAKER) (test code = 704) 6.0 mmol/L -2.0-3.0 H PATIENT TEMPERATURE (BEAKER) (test code = 1818) 36.6 C FIO2 (BEAKER) (test code = 1819) 21.0 % POCT-GLUCOSE [id number] 00:13:00* Test Item Value Reference Range Interpretation Comments POC-GLUCOSE METER (BEAKER) (test code = 1538) 43 mg/dL 70-110 L : TESTED AT [address], [address]: Account Receivable Associate/Emulsion Coater ID = [id number] for RADHA TANNER Bedside [id number] 23:04:00* Test Item Value Reference Range Interpretation Comments Bedside Glucose (test code = 40515-3) 84 70-120 Meter ID: [id number] HospitalCT BRAIN [id number] 20:01:00 [place] [address] Patient Name: KEVIN LOMELI MR #: [id number] : 1995 Age/Sex: 24/M Req #: [id number] Adm Physician: Ordered by: IMELDA DAVID MD Report #: [id number] Location: Room/Bed: Procedure: [id number] CT/CT BRAIN WO Exam Date: 10/26/19 Exam Time: 1840 REPORT STATUS: Signed Exam: Head CT without contrast History: Altered mental status Comparison studies: Non e Technique: Axial images were obtained from the skull base to the vertex . Coronal and sagittal images reconstructed from the axial data. Dose modul ation, iterative reconstruction, and/or weight based adjustment of the mA/kV w as utilized to reduce the radiation dose to as low as reasonably achievable. Radiation dose: Total DLP: 921 mGy*cm. Estimated effective dose: DLP x 0.015 Intravenous contrast: None Findings: Scalp: No abnormaliti es. Bones: No fractures, blastic or lytic lesions. Brain sulci: Appropria te for age. Ventricles: Normal in size and configuration. No hydrocephalus. Extra-axial spaces: No masses, no fluid collection. Parenchyma: No abno rmal densities. No masses, acute hemorrhage, acute or chronic vascular insult s. Sellar/suprasellar region: No abnormalities. Craniocervical junction: Patent foramen magnum. No Chiari one malformation. Included paranasal sinus es: Clear. Bilateral ear and included mastoid cavities: Clear. IMPRESSION : No abnormalities. Signed by: Dr. Paul Schaeffer M.D. on 10/26/2019 8:07 PM Dictated By: PAUL SCHAEFFER MD 06 Transcribed By: GABY on 10/26/192006 CO PY TO: IMELDA DAVID MD Creatine Kinase [id number] 19:35:00* Test Item Value Reference Range Interpretation Comments Creatine Kinase MB (test code = 42452-5) 1.00 0-5.0 [facility] HospitalTroponin [id number] 19:35:00* Test Item Value Reference Range Interpretation Comments Troponin I (test code = IVD7971) < 0.001 0-0.300 [facility] HospitalCreatine [id number] 19:19:00* Test Item Value Reference Range Interpretation Comments Creatine Kinase (test code = 2157-6) 135 30-200 [facility] HospitalEthyl Alcohol [id number] 19:18:00* Test Item Value Reference Range Interpretation Comments Ethyl Alcohol Level (test code = 5643-2) < 10.0 0.0-10.0 [facility] HospitalUrine [id number] 19:15:00* Test Item Value Reference Range Interpretation Comments Urine WBC (test code = 5821-4) NONE 0-5 [facility] HospitalU[facility] [id number] 19:15:00* Test Item Value Reference Range Interpretation Comments Urine RBC (test code = 25394-7) NONE 0-5 [facility] HospitalU[facility] [id number] 19:15:00* Test Item Value Reference Range Interpretation Comments Urine Bacteria (test code = 45604-4) NONE NONE [facility] HospitalU[facility] Epithelial [id number] 19:15:00 * Test Item Value Reference Range Interpretation Comments Urine Epithelial Cells (test code = 02669-9) NONE NONE [facility] HospitalUrine Opiates [id number] 19:04:00* Test Item Value Reference Range Interpretation Comments Urine Opiates Screen (test code = 07102-7) NEGATIVE NEGATIVE ALL TESTS PERFORMED MANUALLY ON [employer] TOX/SEE TESTUvalde Memorial HospitalUrine Barbiturates [id number] 19:04:00* Test Item Value Reference Range Interpretation Comments Urine Barbiturates Screen (test code = 921851983) NEGATIVE NEGA TIVE [facility] HospitalU[facility] Phencyclidine [id number] 19:04:00* Test Item Value Reference Range Interpretation Comments Urine Phencyclidine Screen (test code = 93425-1) NEGATIVE NEGAT JESSIKA [facility] HospitalUrine Amphetamines [id number] 19:04:00* Test Item Value Reference Range Interpretation Comments Urine Amphetamines Screen (test code = 83751-1) NEGATIVE NEGATI VE [facility] HospitalU[facility] Methamphetamines [id number] 19:04:00* Test Item Value Reference Range Interpretation Comments Urine Methamphetamines Screen (test code = Urine Metha mphetamines Screen) POSITIVE NEGATIVE H This test provides only a screen. Positive results should be repeated by a confi rmatory test.[facility] HospitalUrine Benzodiazepines Screen 2019-10-26 19:04:00* Test Item Value Reference Range Interpretation Comments Urine Benzodiazepines Screen (test code = 54121-2) NEGATIVE NEG ATIVE [facility] HospitalUrine Cocaine [id number] 19:04:00* Test Item Value Reference Range Interpretation Comments Urine Cocaine Screen (test code = 3398-5) NEGATIVE NEGATIVE [facility] HospitalUrine Cannabinoids Wqidxp2863-04-19 19:04:00* Test Item Value Reference Range Interpretation Comments Urine Cannabinoids Screen (test code = 34980-0) POSITIVE NEGATI VE H THESE RESULTS ARE FOR MEDICAL TREATMENT ONLYTHIS REPORT CONTAINS UNCONFIR MED SCREENING RESULTS*POSITIVE RESULTS WILL BE CONFIRMED BY REFERENCE LAB UPON R EQUEST CUT-OFFDRUG CLASS CONCENTRATION ng/mLAmphetamines 1000Methamphetamines 1000Cocaine 300Opiate 300Phencyc lidine 25Cannabinoid 50Barbiturates 300Benzodiazepine 300Methadone 300 This test p rovides only a screen. Positive results should be repeated by a confirmatory navya t.[facility] HospitalUrine Methadone [id number] 19:04:00* Test Item Value Reference Range Interpretation Comments Urine Methadone Screen (test code = 63567-7) NEGATIVE NEGATIVE THESE RESULTS ARE FOR MEDICAL TREATMENT ONLYTHIS REPORT CONTAINS UNCONFIR MED SCREENING RESULTS*POSITIVE RESULTS WILL BE CONFIRMED BY REFERENCE LAB UPON R EQUEST CUT-OFFDRUG CLASS CONCENTRATION ng/mLAmphetamines 1000Methamphetamines 1000Cocaine Metabolite 300Opiate 300Phencyc lidine 25Cannabinoid 50Barbiturates 300Benzodiazepine 300Methadone 300[facility] HospitalPhosphorus Vbdun1425-23-29 19:03:00* Test Item Value Reference Range Interpretation Comments Phosphorus Level (test code = MAF3832) 1.9 2.3-4.7 L [facility] HospitalMagnesium Lyvin8781-94-99 19:03:00* Test Item Value Reference Range Interpretation Comments Magnesium Level (test code = 87304-3) 1.9 1.3-2.1 [facility]odium Probs7469-73-15 19:02:00* Test Item Value Reference Range Interpretation Comments Sodium Level (test code = 2951-2) 131 136-145 L [facility] HospitalPotassium Tjtdn4199-65-14 19:02:00* Test Item Value Reference Range Interpretation Comments Potassium Level (test code = 2823-3) 2.7 3.5-5.1 LL Results repeated and called to PAOLA TRAORE at 1901 on 10/26/19 by TRACEY GALINDO. Read back and verified.[facility] HospitalChloride Knjta9890-77-31 19:02:00* Test Item Value Reference Range Interpretation Comments Chloride Level (test code = 2075-0) 89 98-107 L [facility] HospitalCarbon Dioxide Tvmyn6037-22-54 19:02:00* Test Item Value Reference Range Interpretation Comments Carbon Dioxide Level (test code = 2028-9) 20 22-29 L [facility] HospitalAnion Zpc6217-94-57 19:02:00* Test Item Value Reference Range Interpretation Comments Anion Gap (test code = 09617-2) 24.7 8-16 H [facility] HospitalBlood Urea Ofmkuivk2394-61-51 19:02:00* Test Item Value Reference Range Interpretation Comments Blood Urea Nitrogen (test code = 3094-0) 10 7-26 [facility] HospitalCreatinine2019-12-16 19:02:00* Test Item Value Reference Range Interpretation Comments Creatinine (test code = 2160-0) 0.99 0.72-1.25 [facility] HospitalBUN/Creatinine Ogsnh5328-26-18 19:02:00* Test Item Value Reference Range Interpretation Comments BUN/Creatinine Ratio (test code = 3097-3) 10 6-25 [facility] HospitalEstimat Glomerular Filtration Rate 2019-10-26 19:02:00* Test Item Value Reference Range Interpretation Comments Estimat Glomerular Filtration Rate (test code = 102948391) > 60 >60 Ranges were taken from the National Kidney Disease Education Program and the [facility] [employer] literature.Reference ranges:60 or greater: Itbvch85-42 ( for 3 consecutive months): Chronic kidney disease 15 or less: Kidney failureUvalde Memorial HospitalGlucose Txcca6110-41-37 19:02:00* Test Item Value Reference Range Interpretation Comments Glucose Level (test code = NER7410) 404 74-118 Results repeated and called to PAOLA TRAORE at 1901 on 10/26/19 by TRCAEY GALINDO. Read back and verified.[facility] HospitalCalcium Zddxs0043-36-22 19:02:00* Test Item Value Reference Range Interpretation Comments Calcium Level (test code = 50308-4) 10.1 8.4-10.2 [facility] HospitalTotal Hawntzmyw3113-53-01 19:02:00* Test Item Value Reference Range Interpretation Comments Total Bilirubin (test code = 1975-2) 0.5 0.2-1.2 [facility] HospitalAspartate Amino Transf (AST/SGOT) 2019-10-26 19:02:00* Test Item Value Reference Range Interpretation Comments Aspartate Amino Transf (AST/SGOT) (test code = Aspartate Amino Transf (AST/SGOT)) 17 5-34 [facility] HospitalAlanine Aminotransferase (ALT/SGPT) 2019-10-26 19:02:00* Test Item Value Reference Range Interpretation Comments Alanine Aminotransferase (ALT/SGPT) (test code = 1742-6) 16 0-55 [facility] HospitalTotal Erwdqwt9453-21-64 19:02:00* Test Item Value Reference Range Interpretation Comments Total Protein (test code = 2885-2) 7.1 6.5-8.1 [facility] HospitalAlbumin2019-12-16 19:02:00* Test Item Value Reference Range Interpretation Comments Albumin (test code = 1751-7) 4.4 3.5-5.0 [facility] HospitalGlobulin2019-12-16 19:02:00* Test Item Value Reference Range Interpretation Comments Globulin (test code = 33812-3) 2.7 2.3-3.5 [facility] HospitalAlbumin/Globulin Jcwla6101-49-39 19:02:00 * Test Item Value Reference Range Interpretation Comments Albumin/Globulin Ratio (test code = 1759-0) 1.6 0.8-2.0 [facility] HospitalAlkaline Qgwcpgrmmil3550-71-30 19:02:00* Test Item Value Reference Range Interpretation Comments Alkaline Phosphatase (test code = 6768-6) 103 40-150 [facility] HospitalUrine Meqwf9386-50-59 18:59:00* Test Item Value Reference Range Interpretation Comments Urine Color (test code = 5778-6) YELLOW YELLOW [facility] HospitalUrine Opnacvn5333-20-12 18:59:00* Test Item Value Reference Range Interpretation Comments Urine Clarity (test code = 34629-2) SL CLOUDY CLEAR H [facility] HospitalUrine Specific Iwmwusf4973-21-20 18:59:00 * Test Item Value Reference Range Interpretation Comments Urine Specific [place] (test code = 5811-5) 1.010 1.010-1.02 5 [facility] HospitalUrine [id number] 18:59:00* Test Item Value Reference Range Interpretation Comments Urine pH (test code = 55753-0) 7.5 5-7 [facility] HospitalUrine Leukocyte Octaccxb7748-53-53 18:59:00* Test Item Value Reference Range Interpretation Comments Urine Leukocyte Esterase (test code = 5799-2) NEGATIVE NEGATIVE [facility] HospitalUrine Bpothvf4033-59-43 18:59:00* Test Item Value Reference Range Interpretation Comments Urine Nitrite (test code = 59439-6) NEGATIVE NEGATIVE [facility] HospitalUrine Ksndikl6353-25-44 18:59:00* Test Item Value Reference Range Interpretation Comments Urine Protein (test code = 5804-0) NEGATIVE NEGATIVE [facility] HospitalUrine Glucose (UA)2019-10-26 18:59:00* Test Item Value Reference Range Interpretation Comments Urine Glucose (UA) (test code = 2349-9) 3+ NEGATIVE H [facility] HospitalUrine Igydlnv5271-71-23 18:59:00* Test Item Value Reference Range Interpretation Comments Urine Ketones (test code = 69948-0) 2+ NEGATIVE H [facility] HospitalUrine Mtccjwzsdrtg3266-20-00 18:59:00* Test Item Value Reference Range Interpretation Comments Urine Urobilinogen (test code = 93001-5) 1 0.2-1 [facility] HospitalUrine Roxshvefb0228-98-31 18:59:00* Test Item Value Reference Range Interpretation Comments Urine Bilirubin (test code = 1978-6) NEGATIVE NEGATIVE [facility] HospitalUrine Jqejz4923-06-69 18:59:00* Test Item Value Reference Range Interpretation Comments Urine Blood (test code = 14184-3) NEGATIVE NEGATIVE [facility] HospitalLactic Acid Omkvv7960-26-52 18:57:00* Test Item Value Reference Range Interpretation Comments Lactic Acid Level (test code = Lactic Acid Level) 8.2 0.5- 2.0 Results repeated and called to BERNICE DOMINGUEZ at 1856 on 10/26/19 by TRACEY Castillo Read back and verified.[facility] HospitalWhite Blood Wovbs1868-22-00 18:40:00* Test Item Value Reference Range Interpretation Comments White Blood Count (test code = 6690-2) 11.63 4.8-10.8 H [facility] HospitalRed Blood Xvokc0844-69-67 18:40:00* Test Item Value Reference Range Interpretation Comments Red Blood Count (test code = 789-8) 4.80 4.3-5.7 [facility] HospitalHemoglobin2019-12-16 18:40:00* Test Item Value Reference Range Interpretation Comments Hemoglobin (test code = 75148-8) 14.8 14.0-18.0 [facility] HospitalHematocrit2019-12-16 18:40:00* Test Item Value Reference Range Interpretation Comments Hematocrit (test code = 4544-3) 39.9 38.2-49.6 [facility] HospitalMean Corpuscular Xrnech1090-44-87 18:40:00* Test Item Value Reference Range Interpretation Comments Mean Corpuscular Volume (test code = 787-2) 83.1 81-99 [facility] HospitalMean Corpuscular Izpyyfpqas2759-22-02 18:40:00* Test Item Value Reference Range Interpretation Comments Mean Corpuscular Hemoglobin (test code = 785-6) 30.8 28-32 [facility] HospitalMean Corpuscular Hemoglobin Concent 2019-10-26 18:40:00* Test Item Value Reference Range Interpretation Comments Mean Corpuscular Hemoglobin Concent (test code = 786-4) 37.1 31-35 H [facility] HospitalRed Cell Distribution Ptqpp6776-80-29 18:40:00* Test Item Value Reference Range Interpretation Comments Red Cell Distribution Width (test code = 14030-4) 11.3 11.7 -14.4 L [facility] HospitalPlatelet Fzwyp8904-85-73 18:40:00* Test Item Value Reference Range Interpretation Comments Platelet Count (test code = 777-3) 281 140-360 [facility] HospitalNeutrophils (%) (Auto)2019-10-26 18:40:00 * Test Item Value Reference Range Interpretation Comments Neutrophils (%) (Auto) (test code = 83858-1) 76.3 38.7-80.0 [facility] HospitalLymphocytes (%) (Auto)2019-10-26 18:40:00 * Test Item Value Reference Range Interpretation Comments Lymphocytes (%) (Auto) (test code = 736-9) 16.6 18.0-39.1 L [facility] HospitalMonocytes (%) (Auto)2019-10-26 18:40:00* Test Item Value Reference Range Interpretation Comments Monocytes (%) (Auto) (test code = 5905-5) 6.2 4.4-11.3 [facility] HospitalEosinophils (%) (Auto)2019-10-26 18:40:00 * Test Item Value Reference Range Interpretation Comments Eosinophils (%) (Auto) (test code = 713-8) 0.2 0.0-6.0 [facility] HospitalBasophils (%) (Auto)2019-10-26 18:40:00* Test Item Value Reference Range Interpretation Comments Basophils (%) (Auto) (test code = 706-2) 0.3 0.0-1.0 [facility] HospitalIM GRANULOCYTES %2019-10-26 18:40:00* Test Item Value Reference Range Interpretation Comments IM GRANULOCYTES % (test code = IM GRANULOCYTES %) 0.4 0.0- 1.0 [facility] HospitalNeutrophils # (Auto)2019-10-26 18:40:00* Test Item Value Reference Range Interpretation Comments Neutrophils # (Auto) (test code = 751-8) 8.9 2.1-6.9 H [facility] HospitalLymphocytes # (Auto)2019-10-26 18:40:00* Test Item Value Reference Range Interpretation Comments Lymphocytes # (Auto) (test code = 87048-1) 1.9 1.0-3.2 [facility] HospitalMonocytes # (Auto)2019-10-26 18:40:00* Test Item Value Reference Range Interpretation Comments Monocytes # (Auto) (test code = 742-7) 0.7 0.2-0.8 [facility] HospitalEosinophils # (Auto)2019-10-26 18:40:00* Test Item Value Reference Range Interpretation Comments Eosinophils # (Auto) (test code = 711-2) 0.0 0.0-0.4 [facility] HospitalBasophils # (Auto)2019-10-26 18:40:00* Test Item Value Reference Range Interpretation Comments Basophils # (Auto) (test code = 704-7) 0.0 0.0-0.1 [facility] HospitalAbsolute Immature Granulocyte (auto 2019-10-26 18:40:00* Test Item Value Reference Range Interpretation Comments Absolute Immature Granulocyte (auto (navya t code = Absolute Immature Granulocyte (auto) 0.05 0-0.1 [facility] HospitalUrine opiates screening defg6845-91-38 17:30:00* Test Item Value Reference Range Interpretation Comments Urine Opiates Screen (test code = 09339-1) NEGATIVE NEGATIVE ALL TESTS PERFORMED MANUALLY ON [employer] TOX/SEE TESTUvalde Memorial HospitalBarbiturates screen, ufrlj5153-92-84 17:30:00* Test Item Value Reference Range Interpretation Comments Urine Barbiturates Screen (test code = 956703936) NEGATIVE NEGA TIVE [facility] HospitalUrine phencyclidine detection by screening ftiomd0160-46-05 17:30:00* Test Item Value Reference Range Interpretation Comments Urine Phencyclidine Screen (test code = 98928-4) NEGATIVE NEGAT JESSIKA [facility] HospitalUrine amphetamines detection by screen method > 1000 ng/eP0122-53-77 17:30:00* Test Item Value Reference Range Interpretation Comments Urine Amphetamines Screen (test code = 31158-4) NEGATIVE NEGATI VE [facility] HospitalFluoroscopic procedure less than one hour uuywwuxy0673-01-77 17:30:00* Test Item Value Reference Range Interpretation Comments Urine Methamphetamines Screen (test code = Urine Metha mphetamines Screen) POSITIVE NEGATIVE This test provides only a screen. Positive results should be repeated by a confi rmatory test.[facility] HospitalUrine benzodiazepines detection by screening krotkd9634-23-00 17:30:00* Test Item Value Reference Range Interpretation Comments Urine Benzodiazepines Screen (test code = 41500-0) NEGATIVE NEG ATIVE [facility] HospitalUrine cocaine measurement (mass/volume) 2019-10-26 17:30:00* Test Item Value Reference Range Interpretation Comments Urine Cocaine Screen (test code = 3398-5) NEGATIVE NEGATIVE [facility] HospitalUrine cannabinoids detection by screening inlusr1695-68-38 17:30:00* Test Item Value Reference Range Interpretation Comments Urine Cannabinoids Screen (test code = 67274-7) POSITIVE NEGATI VE THESE RESULTS ARE FOR MEDICAL TREATMENT ONLYTHIS REPORT CONTAINS UNCONFIR MED SCREENING RESULTS*POSITIVE RESULTS WILL BE CONFIRMED BY REFERENCE LAB UPON R EQUEST CUT-OFFDRUG CLASS CONCENTRATION ng/mLAmphetamines 1000Methamphetamines 1000Cocaine 300Opiate 300Phencyc lidine 25Cannabinoid 50Barbiturates 300Benzodiazepine 300Methadone 300 This test p rovides only a screen. Positive results should be repeated by a confirmatory navya t.[facility] HospitalUrine methadone cklpns0817-81-86 17:30:00* Test Item Value Reference Range Interpretation Comments Urine Methadone Screen (test code = 47849-3) NEGATIVE NEGATIVE THESE RESULTS ARE FOR MEDICAL TREATMENT ONLYTHIS REPORT CONTAINS UNCONFIR MED SCREENING RESULTS*POSITIVE RESULTS WILL BE CONFIRMED BY REFERENCE LAB UPON R EQUEST CUT-OFFDRUG CLASS CONCENTRATION ng/mLAmphetamines 1000Methamphetamines 1000Cocaine Metabolite 300Opiate 300Phencyc lidine 25Cannabinoid 50Barbiturates 300Benzodiazepine 300Methadone 300[facility] CenterFluoroscopic procedure less than one hour dsgrocbk1747-48-08 17:18:00* Test Item Value Reference Range Interpretation Comments Lactic Acid Level (test code = Lactic Acid Level) 8.2 0.5- 2.0 Results repeated and called to BERNICE ALBERTO at 1856 on 10/26/19 by TRACEY Castillo Read back and verified.[facility] HospitalPhosphorus abczizfullh8399-53-22 17:18:00* Test Item Value Reference Range Interpretation Comments Phosphorus Level (test code = FEH5772) 1.9 2.3-4.7 [facility] or plasma magnesium measurement (mass/volume)2019-10-26 17:18:00* Test Item Value Reference Range Interpretation Comments Magnesium Level (test code = 42304-6) 1.9 1.3-2.1 [facility] Hospitalerum or plasma ethanol measurement (mass/volume)2019-10-26 17:18:00* Test Item Value Reference Range Interpretation Comments Ethyl Alcohol Level (test code = 5643-2) < 10.0 0.0-10.0 [facility] HospitalBlood Vkbjrfb3061-20-58 18:35:00* Test Item Value Reference Range Interpretation Comments Blood Culture (test code = 28284337) NO GROWTH AFTER 5 DAYS, FINAL REPORT [facility] HospitalBedside Rasxqei7807-00-85 12:02:00* Test Item Value Reference Range Interpretation Comments Bedside Glucose (test code = 87921-3) 152 70-120 H Meter ID: [id number] Memorial HospitalThyroid Stimulating Hormone (TSH)2019-06-24 05:52:00* Test Item Value Reference Range Interpretation Comments Thyroid Stimulating Hormone (TSH) (test code = 45588-8) 0.334 0.350-4.940 L [facility] HospitalThyroid Stimulating Hormone (TSH) 2019-06-24 05:52:00* Test Item Value Reference Range Interpretation Comments Thyroid Stimulating Hormone (TSH) (test code = 44386-8) 0.334 0.350-4.940 L [facility] HospitalHemoglobin A1c Uqxmctd4288-00-93 05:43:00 * Test Item Value Reference Range Interpretation Comments Hemoglobin A1c Percent (test code = Hemoglobin A1c Percent) 10.1 4.0-7.0 H [facility] HospitalHemoglobin A1c Kmrpfva5736-57-07 05:43:00 * Test Item Value Reference Range Interpretation Comments Hemoglobin A1c Percent (test code = Hemoglobin A1c Percent) 10.1 4.0-7.0 H [facility] HospitalWhite Blood Fxrla8409-30-54 05:21:00* Test Item Value Reference Range Interpretation Comments White Blood Count (test code = 6690-2) 7.14 4.8-10.8 [facility] HospitalRed Blood Isebh3584-87-63 05:21:00* Test Item Value Reference Range Interpretation Comments Red Blood Count (test code = 789-8) 4.21 4.3-5.7 L [facility] HospitalHemoglobin2019-08-14 05:21:00* Test Item Value Reference Range Interpretation Comments Hemoglobin (test code = 15857-8) 12.9 14.0-18.0 L [facility] HospitalHematocrit2019-08-14 05:21:00* Test Item Value Reference Range Interpretation Comments Hematocrit (test code = 4544-3) 34.0 38.2-49.6 L [facility] HospitalMean Corpuscular Yltwme7576-92-82 05:21:00* Test Item Value Reference Range Interpretation Comments Mean Corpuscular Volume (test code = 787-2) 80.8 81-99 L [facility] HospitalMean Corpuscular Cpdfialdww3964-24-41 05:21:00* Test Item Value Reference Range Interpretation Comments Mean Corpuscular Hemoglobin (test code = 785-6) 30.6 28-32 [facility] HospitalMean Corpuscular Hemoglobin Concent 2019-06-24 05:21:00* Test Item Value Reference Range Interpretation Comments Mean Corpuscular Hemoglobin Concent (test code = 786-4) 37.9 31-35 H [facility] HospitalRed Cell Distribution Hoohi5595-68-48 05:21:00* Test Item Value Reference Range Interpretation Comments Red Cell Distribution Width (test code = 44716-9) 11.8 11.7 -14.4 [facility] HospitalPlatelet Abqpx6664-22-62 05:21:00* Test Item Value Reference Range Interpretation Comments Platelet Count (test code = 777-3) 179 140-360 [facility] HospitalNeutrophils (%) (Auto)2019-06-24 05:21:00 * Test Item Value Reference Range Interpretation Comments Neutrophils (%) (Auto) (test code = 04376-3) 45.2 38.7-80.0 [facility] HospitalLymphocytes (%) (Auto)2019-06-24 05:21:00 * Test Item Value Reference Range Interpretation Comments Lymphocytes (%) (Auto) (test code = 736-9) 46.8 18.0-39.1 H [facility] HospitalMonocytes (%) (Auto)2019-06-24 05:21:00* Test Item Value Reference Range Interpretation Comments Monocytes (%) (Auto) (test code = 5905-5) 6.2 4.4-11.3 [facility] HospitalEosinophils (%) (Auto)2019-06-24 05:21:00 * Test Item Value Reference Range Interpretation Comments Eosinophils (%) (Auto) (test code = 713-8) 1.1 0.0-6.0 [facility] HospitalBasophils (%) (Auto)2019-06-24 05:21:00* Test Item Value Reference Range Interpretation Comments Basophils (%) (Auto) (test code = 706-2) 0.3 0.0-1.0 [facility] HospitalIM GRANULOCYTES %2019-06-24 05:21:00* Test Item Value Reference Range Interpretation Comments IM GRANULOCYTES % (test code = IM GRANULOCYTES %) 0.4 0.0- 1.0 [facility] HospitalNeutrophils # (Auto)2019-06-24 05:21:00* Test Item Value Reference Range Interpretation Comments Neutrophils # (Auto) (test code = 751-8) 3.2 2.1-6.9 [facility] HospitalLymphocytes # (Auto)2019-06-24 05:21:00* Test Item Value Reference Range Interpretation Comments Lymphocytes # (Auto) (test code = 76158-0) 3.3 1.0-3.2 H [facility] HospitalMonocytes # (Auto)2019-06-24 05:21:00* Test Item Value Reference Range Interpretation Comments Monocytes # (Auto) (test code = 742-7) 0.4 0.2-0.8 [facility] HospitalEosinophils # (Auto)2019-06-24 05:21:00* Test Item Value Reference Range Interpretation Comments Eosinophils # (Auto) (test code = 711-2) 0.1 0.0-0.4 [facility] HospitalBasophils # (Auto)2019-06-24 05:21:00* Test Item Value Reference Range Interpretation Comments Basophils # (Auto) (test code = 704-7) 0.0 0.0-0.1 [facility] HospitalAbsolute Immature Granulocyte (auto 2019-06-24 05:21:00* Test Item Value Reference Range Interpretation Comments Absolute Immature Granulocyte (auto (navya t code = Absolute Immature Granulocyte (auto) 0.03 0-0.1 [facility] HospitalBlood Azdjlbw7935-54-54 18:35:00* Test Item Value Reference Range Interpretation Comments Blood Culture (test code = 67016092) NO GROWTH AFTER 24 HOURS [facility] Hospitalodium Zrguf3924-03-71 17:05:00* Test Item Value Reference Range Interpretation Comments Sodium Level (test code = 2951-2) 126 136-145 L [facility] HospitalPotassium Gierp7747-14-78 17:05:00* Test Item Value Reference Range Interpretation Comments Potassium Level (test code = 2823-3) 3.5 3.5-5.1 [facility] HospitalChloride Ntbua9368-29-71 17:05:00* Test Item Value Reference Range Interpretation Comments Chloride Level (test code = 2075-0) 95 98-107 L [facility] HospitalCarbon Dioxide Ofinr7243-95-33 17:05:00* Test Item Value Reference Range Interpretation Comments Carbon Dioxide Level (test code = 2028-9) 19 22-29 L [facility] HospitalAnion Ecq7628-56-14 17:05:00* Test Item Value Reference Range Interpretation Comments Anion Gap (test code = 62568-5) 15.5 8-16 [facility] HospitalBlood Urea Vekihkru2451-82-47 17:05:00* Test Item Value Reference Range Interpretation Comments Blood Urea Nitrogen (test code = 3094-0) 7 7-26 [facility] HospitalCreatinine2019-08-13 17:05:00* Test Item Value Reference Range Interpretation Comments Creatinine (test code = 2160-0) 0.78 0.72-1.25 [facility] HospitalBUN/Creatinine Zkryr3159-88-03 17:05:00* Test Item Value Reference Range Interpretation Comments BUN/Creatinine Ratio (test code = 3097-3) 9 6-25 [facility] HospitalEstimat Glomerular Filtration Rate 2019-06-23 17:05:00* Test Item Value Reference Range Interpretation Comments Estimat Glomerular Filtration Rate (test code = 650837010) > 60 >60 Ranges were taken from the National Kidney Disease Education Program and the [facility] literature.Reference ranges:60 or greater: Bkramv53-41 ( for 3 consecutive months): Chronic kidney disease 15 or less: Kidney failureUvalde Memorial HospitalGlucose Qwkef0767-75-40 17:05:00* Test Item Value Reference Range Interpretation Comments Glucose Level (test code = USB7246) 163 74-118 H [facility] HospitalCalcium Xpmiq2353-69-06 17:05:00* Test Item Value Reference Range Interpretation Comments Calcium Level (test code = 81261-5) 8.3 8.4-10.2 L [facility] HospitalMagnesium Fapno8756-00-22 17:05:00* Test Item Value Reference Range Interpretation Comments Magnesium Level (test code = 12371-5) 2.1 1.3-2.1 [facility] HospitalTotal Bmcvonxsq3592-57-49 06:36:00* Test Item Value Reference Range Interpretation Comments Total Bilirubin (test code = 1975-2) 1.6 0.2-1.2 H [facility] HospitalAspartate Amino Transf (AST/SGOT) 2019-06-23 06:36:00* Test Item Value Reference Range Interpretation Comments Aspartate Amino Transf (AST/SGOT) (test code = Aspartate Amino Transf (AST/SGOT)) 9 5-34 [facility] HospitalAlanine Aminotransferase (ALT/SGPT) 2019-06-23 06:36:00* Test Item Value Reference Range Interpretation Comments Alanine Aminotransferase (ALT/SGPT) (test code = 1742-6) 10 0-55 [facility] HospitalTotal Xdrvsfq6706-93-65 06:36:00* Test Item Value Reference Range Interpretation Comments Total Protein (test code = 2885-2) 6.0 6.5-8.1 L [facility] HospitalAlbumin2019-08-13 06:36:00* Test Item Value Reference Range Interpretation Comments Albumin (test code = 1751-7) 3.7 3.5-5.0 [facility] HospitalGlobulin2019-08-13 06:36:00* Test Item Value Reference Range Interpretation Comments Globulin (test code = 24658-5) 2.3 2.3-3.5 [facility] HospitalAlbumin/Globulin Ewzfg5787-01-14 06:36:00 * Test Item Value Reference Range Interpretation Comments Albumin/Globulin Ratio (test code = 1759-0) 1.6 0.8-2.0 [facility] HospitalAlkaline Pawhvqdhnmu1702-18-92 06:36:00* Test Item Value Reference Range Interpretation Comments Alkaline Phosphatase (test code = 6768-6) 79 40-150 [facility] HospitalPhosphorus Zgecr9803-60-27 06:05:00* Test Item Value Reference Range Interpretation Comments Phosphorus Level (test code = WPR2429) < 0.7 2.3-4.7 L [facility] HospitalCreatine Kinase IY7140-15-57 05:43:00* Test Item Value Reference Range Interpretation Comments Creatine Kinase MB (test code = 01844-1) 1.20 0-5.0 [facility] HospitalTroponin P6924-48-24 05:43:00* Test Item Value Reference Range Interpretation Comments Troponin I (test code = JTJ8552) < 0.001 0-0.300 [facility] HospitalCreatine Himatz4176-77-88 05:34:00* Test Item Value Reference Range Interpretation Comments Creatine Kinase (test code = 2157-6) 32 30-200 [facility] HospitalArterial Blood fQ8620-15-80 20:25:00* Test Item Value Reference Range Interpretation Comments Arterial Blood pH (test code = 2744-1) 7.16 7.31-7.41 LL Results called to MABEL WEBB at 2014 on 06/22/19 by Huan Champion. RB [place].[facility] HospitalArterial Blood Partial Pressure OC89353-63-94 20:25:00* Test Item Value Reference Range Interpretation Comments Arterial Blood Partial Pressure CO2 (test code = 2019-06) 15 41-51 L [facility] HospitalArterial Blood Partial Pressure O2 2019-06-22 20:25:00* Test Item Value Reference Range Interpretation Comments Arterial Blood Partial Pressure O2 (test code = 2019-8) 125 80-105 H [facility] HospitalArterial Blood DZT30432-73-58 20:25:00* Test Item Value Reference Range Interpretation Comments Arterial Blood HCO3 (test code = 1959-4) 5 23-28 L [facility] HospitalArterial Blood Base Urtknl3556-37-60 20:25:00* Test Item Value Reference Range Interpretation Comments Arterial Blood Base Excess (test code = 1925-7) -23.0 -2-3 L [facility] HospitalArterial Blood Oxygen Saturation 2019-06-22 20:25:00* Test Item Value Reference Range Interpretation Comments Arterial Blood Oxygen Saturation (test code = 2708-6) 98.0 95-98 [facility] HospitalFiO22019-08-12 20:25:00* Test Item Value Reference Range Interpretation Comments FiO2 (test code = FiO2) 21 PT IS ON ROOM AIRUvalde Memorial HospitalArterial Blood pH 2019-06-22 20:25:00* Test Item Value Reference Range Interpretation Comments Arterial Blood pH (test code = 2744-1) 7.16 7.31-7.41 LL Results called to MABEL WEBB at 2014 on 06/22/19 by Huan Champion. RB [place].[facility] HospitalArterial Blood Partial Pressure EV13549-28-80 20:25:00* Test Item Value Reference Range Interpretation Comments Arterial Blood Partial Pressure CO2 (test code = 2018-8) 15 41-51 L [facility] HospitalArterial Blood Partial Pressure O2 2019-06-22 20:25:00* Test Item Value Reference Range Interpretation Comments Arterial Blood Partial Pressure O2 (test code = 2019-8) 125 80-105 H [facility] HospitalArterial Blood FCW34941-49-00 20:25:00* Test Item Value Reference Range Interpretation Comments Arterial Blood HCO3 (test code = 1960-4) 5 23-28 L [facility] HospitalArterial Blood Base Hrrlxa1703-81-17 20:25:00* Test Item Value Reference Range Interpretation Comments Arterial Blood Base Excess (test code = 1925-7) -23.0 -2-3 L [facility] HospitalArterial Blood Oxygen Saturation 2019-06-22 20:25:00* Test Item Value Reference Range Interpretation Comments Arterial Blood Oxygen Saturation (test code = 2708-6) 98.0 95-98 [facility] HospitalFiO22019-08-12 20:25:00* Test Item Value Reference Range Interpretation Comments FiO2 (test code = FiO2) 21 PT IS ON ROOM AIRUvalde Memorial HospitalUrine QWQ5360-24-59 19:50:00* Test Item Value Reference Range Interpretation Comments Urine WBC (test code = 5821-4) NONE 0-5 [facility] HospitalUrine EJI3504-94-23 19:50:00* Test Item Value Reference Range Interpretation Comments Urine RBC (test code = 91430-6) NONE 0-5 [facility] HospitalUrine Mlbwbfbb8953-37-46 19:50:00* Test Item Value Reference Range Interpretation Comments Urine Bacteria (test code = 25680-9) NONE NONE [facility] HospitalUrine Epithelial Husom6660-85-26 19:50:00 * Test Item Value Reference Range Interpretation Comments Urine Epithelial Cells (test code = 66201-0) NONE NONE [facility] HospitalUrine Opiates Vjbcup7259-18-43 19:41:00* Test Item Value Reference Range Interpretation Comments Urine Opiates Screen (test code = 79621-2) NEGATIVE NEGATIVE ALL TESTS PERFORMED MANUALLY ON [employer] TOX/SEE TEST --- 06/22/191939 ---OPIATE S previously reported as: ALL TESTS PERFORMED MANUALLY ON [employer]OR[employer] TOX/SEE TEST [facility] HospitalUrine Barbiturates Bkqbql5091-85-06 19:41:00* Test Item Value Reference Range Interpretation Comments Urine Barbiturates Screen (test code = 951340478) NEGATIVE NEGA TIVE [facility] HospitalUrine Phencyclidine Kkkttz8672-66-89 19:41:00* Test Item Value Reference Range Interpretation Comments Urine Phencyclidine Screen (test code = 54401-7) NEGATIVE NEGAT JESSIKA [facility] HospitalUrine Amphetamines Hrckzt2705-65-43 19:41:00* Test Item Value Reference Range Interpretation Comments Urine Amphetamines Screen (test code = 92324-1) NEGATIVE NEGATI VE [facility] HospitalUrine Methamphetamines Lwccbv7127-65-35 19:41:00* Test Item Value Reference Range Interpretation Comments Urine Methamphetamines Screen (test code = Urine Metha mphetamines Screen) NEGATIVE NEGATIVE [facility] HospitalUrine Benzodiazepines Rypasj9970-11-49 19:41:00* Test Item Value Reference Range Interpretation Comments Urine Benzodiazepines Screen (test code = 62048-1) NEGATIVE NEG ATIVE [facility] HospitalUrine Cocaine Zvntwd2615-73-51 19:41:00* Test Item Value Reference Range Interpretation Comments Urine Cocaine Screen (test code = 3398-5) NEGATIVE NEGATIVE [facility] HospitalUrine Cannabinoids Yorahm5282-35-24 19:41:00* Test Item Value Reference Range Interpretation Comments Urine Cannabinoids Screen (test code = 38693-1) POSITIVE NEGATI VE H THESE RESULTS ARE FOR MEDICAL TREATMENT ONLYTHIS REPORT CONTAINS UNCONFIR MED SCREENING RESULTS*POSITIVE RESULTS WILL BE CONFIRMED BY REFERENCE LAB UPON R EQUEST CUT-OFFDRUG CLASS CONCENTRATION ng/mLAmphetamines 1000Methamphetamines 1000Cocaine 300Opiate 300Phencyc lidine 25Cannabinoid 50Barbiturates 300Benzodiazepine 300Methadone 300 This test p rovides only a screen. Positive results should be repeated by a confirmatory navya t. --- 06/22/191939 ---THC previously reported as: THESE RESULTS ARE FOR MEDICAL TREATMENT ONLYTHIS REPORT CONTAINS UNCONFIRMED SCREENING RESULTS*POS ITIVE RESULTS WILL BE CONFIRMED BY REFERENCE LAB UPON REQUEST CUT-OFFDRUG CLASS CONCENTRATION n g/mLAmphetamines 1000Methamphetamines 1000Cocaine 300Opiate 300Phencyclidine 25C annabinoid 50Barbiturates 300Benzodiazepine 300Methadone 300[facility] CenterUrine Methadone Nxxpkb1417-74-83 19:41:00* Test Item Value Reference Range Interpretation Comments Urine Methadone Screen (test code = 29019-8) NEGATIVE NEGATIVE THESE RESULTS ARE FOR MEDICAL TREATMENT ONLYTHIS REPORT CONTAINS UNCONFIR MED SCREENING RESULTS*POSITIVE RESULTS WILL BE CONFIRMED BY REFERENCE LAB UPON R EQUEST CUT-OFFDRUG CLASS CONCENTRATION ng/mLAmphetamines 1000Methamphetamines 1000Cocaine Metabolite 300Opiate 300Phencyc lidine 25Cannabinoid 50Barbiturates 300Benzodiazepine 300Methadone 300[facility] HospitalUrine Axlpn6713-62-39 19:39:00* Test Item Value Reference Range Interpretation Comments Urine Color (test code = 5778-6) YELLOW YELLOW [facility] HospitalUrine Laxntad5446-71-12 19:39:00* Test Item Value Reference Range Interpretation Comments Urine Clarity (test code = 20653-5) SL CLOUDY CLEAR H [facility] HospitalUrine Specific Mdcovim2248-27-59 19:39:00 * Test Item Value Reference Range Interpretation Comments Urine Specific [place] (test code = 5811-5) >=1.030 1.010-1.02 5 [facility] HospitalUrine zJ2187-47-36 19:39:00* Test Item Value Reference Range Interpretation Comments Urine pH (test code = 64358-9) 6 5-7 [facility] HospitalUrine Leukocyte Txvtdzen0119-60-97 19:39:00* Test Item Value Reference Range Interpretation Comments Urine Leukocyte Esterase (test code = 37528-8) NEGATIVE NEGATIV E [facility] HospitalUrine Saywork8441-52-24 19:39:00* Test Item Value Reference Range Interpretation Comments Urine Nitrite (test code = 92191-3) NEGATIVE NEGATIVE [facility] HospitalUrine Dapwkli5772-76-32 19:39:00* Test Item Value Reference Range Interpretation Comments Urine Protein (test code = 04786-9) 1+ NEGATIVE H [facility] HospitalUrine Glucose (UA)2019-06-22 19:39:00* Test Item Value Reference Range Interpretation Comments Urine Glucose (UA) (test code = 37957-9) 2+ NEGATIVE H [facility] HospitalUrine Gyhfsuv2557-44-13 19:39:00* Test Item Value Reference Range Interpretation Comments Urine Ketones (test code = 02024-1) 2+ NEGATIVE H [facility] HospitalUrine Ebbadtuycmck2018-36-30 19:39:00* Test Item Value Reference Range Interpretation Comments Urine Urobilinogen (test code = 54805-5) 0.2 0.2-1 [facility] HospitalUrine Idrpykpvm3272-58-11 19:39:00* Test Item Value Reference Range Interpretation Comments Urine Bilirubin (test code = 1977-8) NEGATIVE NEGATIVE [facility] Hpdha2452-06-92 19:39:00* Test Item Value Reference Range Interpretation Comments Urine Blood (test code = 99804-5) NEGATIVE NEGATIVE [facility] CenterCHEST SINGLE (PORTABLE)2019-06-22 19:18:00 [facility] [address] [address] Patient Name: KEVIN LOMELI MR #: [id number] : 1995 Age/Sex: 24/M Req #: [id number] Adm Physician: Ordered by: OLIVA JACOB MD Report #: [id number] Location: ER Room/Bed: Procedure: [id number] DX/C HEST SINGLE (PORTABLE) Exam Date: 06/22/19 Exam Time : 1800 REPORT STATUS: Signed EXA M: CHEST SINGLE (PORTABLE) DATE: 06/22/2019 4:25 PM INDICATION: N/V ? DKA [id number] COMPARISON: Chest x-ray, 05/19/2019 FINDINGS: Lines and tubes: None Heart size normal. No focal pul monary opacity, pleural effusion or pneumothorax. Upper abdomen unremarkabl e. No acute bony abnormality. IMPRESSION: No evidence for acute disease. Signed by: Dr. Keyon Darling M.D. on 06/22/2019 7:18 PM Dictated By: KEYON DARLING MD 17 Transcribed By: GABY on 06/22/191917 COPY TO: OLIVA JACOB MD Amylase Puoka5084-70-94 18:58:00* Test Item Value Reference Range Interpretation Comments Amylase Level (test code = 1798-8) 15 25-125 L [facility] HospitalLipase2019-08-12 18:58:00* Test Item Value Reference Range Interpretation Comments Lipase (test code = 3040-3) < 4 8-78 L [facility] HospitalAmylase Masib3266-45-36 18:58:00* Test Item Value Reference Range Interpretation Comments Amylase Level (test code = 1798-8) 15 25-125 L [facility] HospitalLipase2019-08-12 18:58:00* Test Item Value Reference Range Interpretation Comments Lipase (test code = 3040-3) < 4 8-78 L [facility] HospitalLactic Acid Yhbhq7433-74-79 18:45:00* Test Item Value Reference Range Interpretation Comments Lactic Acid Level (test code = Lactic Acid Level) 17.9 4.5- 19.8 [facility] HospitalProthrombin Zeii4322-14-85 18:43:00* Test Item Value Reference Range Interpretation Comments Prothrombin Time (test code = 5902-2) 14.9 11.9-14.5 H [facility] HospitalProthromb Time International Ratio 2019-06-22 18:43:00* Test Item Value Reference Range Interpretation Comments Prothromb Time International Ratio (test code = 6301-6) 1.12 Oral Anticoagulant Therapy INR Values:1. Low Intensity Therapy 1.5 - 2.02 . Moderate Intensity Therapy 2.0 - 3.03. High Intensity Therapy(1) 2.5 - 3. 54. High Intensity Therapy(2) 3.0 - 4.05. Panic Value INR > 5.0 [facility] HospitalActivated Partial Thromboplast Time 2019-06-22 18:43:00* Test Item Value Reference Range Interpretation Comments Activated Partial Thromboplast Time (test code = 08252-9) 29.4 23.8-35.5 [facility] HospitalProthrombin Xdne9374-43-47 18:43:00* Test Item Value Reference Range Interpretation Comments Prothrombin Time (test code = 5902-2) 14.9 11.9-14.5 H [facility] HospitalProthromb Time International Ratio 2019-06-22 18:43:00* Test Item Value Reference Range Interpretation Comments Prothromb Time International Ratio (test code = 6301-6) 1.12 Oral Anticoagulant Therapy INR Values:1. Low Intensity Therapy 1.5 - 2.02 . Moderate Intensity Therapy 2.0 - 3.03. High Intensity Therapy(1) 2.5 - 3. 54. High Intensity Therapy(2) 3.0 - 4.05. Panic Value INR > 5.0 [facility] HospitalActivated Partial Thromboplast Time 2019-06-22 18:43:00* Test Item Value Reference Range Interpretation Comments Activated Partial Thromboplast Time (test code = 87961-8) 29.4 23.8-35.5 [facility] HospitalBedside Pazigvn1503-31-18 12:05:00* Test Item Value Reference Range Interpretation Comments Bedside Glucose (test code = 68265-2) 288 70-120 H Meter ID: [id number] Texas Spine & Surgical Hospitalodium Level 2019-05-21 05:35:00* Test Item Value Reference Range Interpretation Comments Sodium Level (test code = 2951-2) 130 136-145 L [facility] HospitalPotassium Nztjz7041-60-38 05:35:00* Test Item Value Reference Range Interpretation Comments Potassium Level (test code = 2823-3) 3.1 3.5-5.1 L [facility] HospitalChloride Dknio3465-72-14 05:35:00* Test Item Value Reference Range Interpretation Comments Chloride Level (test code = 2075-0) 92 98-107 L [facility] HospitalCarbon Dioxide Pfzpe4415-46-41 05:35:00* Test Item Value Reference Range Interpretation Comments Carbon Dioxide Level (test code = 2028-9) 27 22-29 [facility] HospitalAnion Bvu2873-67-65 05:35:00* Test Item Value Reference Range Interpretation Comments Anion Gap (test code = 17205-2) 14.1 8-16 [facility] HospitalBlood Urea Chuqarrt8019-48-95 05:35:00* Test Item Value Reference Range Interpretation Comments Blood Urea Nitrogen (test code = 3094-0) 8 7-26 [facility] HospitalCreatinine2019-07-11 05:35:00* Test Item Value Reference Range Interpretation Comments Creatinine (test code = 2160-0) 0.70 0.72-1.25 L [facility] HospitalBUN/Creatinine Mrcwf7375-89-53 05:35:00* Test Item Value Reference Range Interpretation Comments BUN/Creatinine Ratio (test code = 3097-3) 11 6-25 [facility] HospitalEstimat Glomerular Filtration Rate 2019-05-21 05:35:00* Test Item Value Reference Range Interpretation Comments Estimat Glomerular Filtration Rate (test code = 947493883) > 60 >60 Ranges were taken from the National Kidney Disease Education Program and the [facility] literature.Reference ranges:60 or greater: Gmevik44-51 ( for 3 consecutive months): Chronic kidney disease 15 or less: Kidney failureUvalde Memorial HospitalGlucose Umrku7072-93-29 05:35:00* Test Item Value Reference Range Interpretation Comments Glucose Level (test code = SXH5607) 165 74-118 H [facility] HospitalCalcium Qarmz3153-39-65 05:35:00* Test Item Value Reference Range Interpretation Comments Calcium Level (test code = 97280-2) 7.9 8.4-10.2 L [facility] HospitalMagnesium Ttiwg6368-63-05 05:35:00* Test Item Value Reference Range Interpretation Comments Magnesium Level (test code = 69209-3) 2.3 1.3-2.1 H [facility] HospitalThyroid Stimulating Hormone (TSH) 2019-05-20 06:26:00* Test Item Value Reference Range Interpretation Comments Thyroid Stimulating Hormone (TSH) (test code = 23781-9) 0.659 0.350-4.940 [facility] HospitalWhite Blood Nqeig5088-47-31 05:30:00* Test Item Value Reference Range Interpretation Comments White Blood Count (test code = 6690-2) 16.62 4.8-10.8 H [facility] HospitalRed Blood Uqkdx9322-50-21 05:30:00* Test Item Value Reference Range Interpretation Comments Red Blood Count (test code = 789-8) 4.89 4.3-5.7 [facility] HospitalHemoglobin2019-07-10 05:30:00* Test Item Value Reference Range Interpretation Comments Hemoglobin (test code = 83266-6) 15.3 14.0-18.0 [facility] HospitalHematocrit2019-07-10 05:30:00* Test Item Value Reference Range Interpretation Comments Hematocrit (test code = 4544-3) 40.6 38.2-49.6 [facility] HospitalMean Corpuscular Ywqhbf9429-82-10 05:30:00* Test Item Value Reference Range Interpretation Comments Mean Corpuscular Volume (test code = 787-2) 83.0 81-99 VERIFIED PREVIOUS RESULTSUvalde Memorial HospitalMean Corpuscular Sgzoovqagb9580-23-63 05:30:00* Test Item Value Reference Range Interpretation Comments Mean Corpuscular Hemoglobin (test code = 785-6) 31.3 28-32 [facility] HospitalMean Corpuscular Hemoglobin Concent 2019-05-20 05:30:00* Test Item Value Reference Range Interpretation Comments Mean Corpuscular Hemoglobin Concent (test code = 786-4) 37.7 31-35 H [facility] HospitalRed Cell Distribution Hqdfv9743-51-14 05:30:00* Test Item Value Reference Range Interpretation Comments Red Cell Distribution Width (test code = 09515-6) 11.0 11.7 -14.4 L [facility] HospitalPlatelet Xdpmr6956-21-62 05:30:00* Test Item Value Reference Range Interpretation Comments Platelet Count (test code = 777-3) 194 140-360 [facility] HospitalNeutrophils (%) (Auto)2019-05-20 05:30:00 * Test Item Value Reference Range Interpretation Comments Neutrophils (%) (Auto) (test code = 65154-8) 84.7 38.7-80.0 H [facility] HospitalLymphocytes (%) (Auto)2019-05-20 05:30:00 * Test Item Value Reference Range Interpretation Comments Lymphocytes (%) (Auto) (test code = 736-9) 7.1 18.0-39.1 L [facility] HospitalMonocytes (%) (Auto)2019-05-20 05:30:00* Test Item Value Reference Range Interpretation Comments Monocytes (%) (Auto) (test code = 5905-5) 7.2 4.4-11.3 [facility] HospitalEosinophils (%) (Auto)2019-05-20 05:30:00 * Test Item Value Reference Range Interpretation Comments Eosinophils (%) (Auto) (test code = 713-8) 0.1 0.0-6.0 [facility] HospitalBasophils (%) (Auto)2019-05-20 05:30:00* Test Item Value Reference Range Interpretation Comments Basophils (%) (Auto) (test code = 706-2) 0.2 0.0-1.0 [facility] HospitalIM GRANULOCYTES %2019-05-20 05:30:00* Test Item Value Reference Range Interpretation Comments IM GRANULOCYTES % (test code = IM GRANULOCYTES %) 0.7 0.0- 1.0 [facility] HospitalNeutrophils # (Auto)2019-05-20 05:30:00* Test Item Value Reference Range Interpretation Comments Neutrophils # (Auto) (test code = 751-8) 14.1 2.1-6.9 H [facility] HospitalLymphocytes # (Auto)2019-05-20 05:30:00* Test Item Value Reference Range Interpretation Comments Lymphocytes # (Auto) (test code = 89375-1) 1.2 1.0-3.2 [facility] HospitalMonocytes # (Auto)2019-05-20 05:30:00* Test Item Value Reference Range Interpretation Comments Monocytes # (Auto) (test code = 742-7) 1.2 0.2-0.8 H [facility] HospitalEosinophils # (Auto)2019-05-20 05:30:00* Test Item Value Reference Range Interpretation Comments Eosinophils # (Auto) (test code = 711-2) 0.0 0.0-0.4 [facility] HospitalBasophils # (Auto)2019-05-20 05:30:00* Test Item Value Reference Range Interpretation Comments Basophils # (Auto) (test code = 704-7) 0.0 0.0-0.1 [facility] HospitalAbsolute Immature Granulocyte (auto 2019-05-20 05:30:00* Test Item Value Reference Range Interpretation Comments Absolute Immature Granulocyte (auto (navya t code = Absolute Immature Granulocyte (auto) 0.12 0-0.1 H [facility] HospitalUrine ZUK0821-68-16 11:49:00* Test Item Value Reference Range Interpretation Comments Urine WBC (test code = 5821-4) 6-10 0-5 H [facility] HospitalUrine GMQ9674-61-55 11:49:00* Test Item Value Reference Range Interpretation Comments Urine RBC (test code = 29852-3) 6-10 0-5 H [facility] HospitalUrine Ftpdxqlb7182-89-73 11:49:00* Test Item Value Reference Range Interpretation Comments Urine Bacteria (test code = 11446-7) FEW NONE [facility] HospitalUrine Epithelial Mvzko2562-69-11 11:49:00 * Test Item Value Reference Range Interpretation Comments Urine Epithelial Cells (test code = 07909-6) RARE NONE [facility] HospitalUrine Transitional Epithelial Cells 2019-05-19 11:49:00* Test Item Value Reference Range Interpretation Comments Urine Transitional Epithelial Cells (test code = 8249-5) FEW NONE [facility] HospitalUrine Fine Granular Xmlkd1001-11-74 11:49:00* Test Item Value Reference Range Interpretation Comments Urine Fine Granular Casts (test code = 86840-9) 1-5 >0 H [facility] HospitalUrine Coarse Granular Nanjd7458-88-76 11:49:00* Test Item Value Reference Range Interpretation Comments Urine Coarse Granular Casts (test code = 09896-0) 1-5 >0 H [facility] HospitalUrine Transitional Epithelial Cells 2019-05-19 11:49:00* Test Item Value Reference Range Interpretation Comments Urine Transitional Epithelial Cells (test code = 8249-5) FEW NONE [facility] HospitalUrine Fine Granular Bakyx1980-54-65 11:49:00* Test Item Value Reference Range Interpretation Comments Urine Fine Granular Casts (test code = 84685-2) 1-5 >0 H [facility] HospitalUrine Coarse Granular Kljfe2751-01-84 11:49:00* Test Item Value Reference Range Interpretation Comments Urine Coarse Granular Casts (test code = 10522-8) 1-5 >0 H [facility] HospitalUrine Transitional Epithelial Cells 2019-05-19 11:49:00* Test Item Value Reference Range Interpretation Comments Urine Transitional Epithelial Cells (test code = 8249-5) FEW NONE [facility] HospitalUrine Fine Granular Wxnnd7104-46-80 11:49:00* Test Item Value Reference Range Interpretation Comments Urine Fine Granular Casts (test code = 12275-4) 1-5 >0 H [facility] HospitalUrine Coarse Granular Wdfqe0609-42-61 11:49:00* Test Item Value Reference Range Interpretation Comments Urine Coarse Granular Casts (test code = 03078-4) 1-5 >0 H [facility] HospitalUrine Orhbg7066-33-61 11:36:00* Test Item Value Reference Range Interpretation Comments Urine Color (test code = 5778-6) YELLOW YELLOW [facility] HospitalUrine Jucfgof1648-35-60 11:36:00* Test Item Value Reference Range Interpretation Comments Urine Clarity (test code = 66374-2) CLEAR CLEAR [facility] HospitalUrine Specific Oqvfeog9073-80-15 11:36:00 * Test Item Value Reference Range Interpretation Comments Urine Specific [place] (test code = 5811-5) 1.025 1.010-1.02 5 [facility] HospitalUrine pV1078-00-79 11:36:00* Test Item Value Reference Range Interpretation Comments Urine pH (test code = 93153-1) 5 5-7 [facility] HospitalUrine Leukocyte Peqotjuu7781-35-37 11:36:00* Test Item Value Reference Range Interpretation Comments Urine Leukocyte Esterase (test code = 01902-6) NEGATIVE NEGATIV E [facility] HospitalUrine Kpkkfok5993-03-66 11:36:00* Test Item Value Reference Range Interpretation Comments Urine Nitrite (test code = 97761-7) NEGATIVE NEGATIVE [facility] HospitalUrine Qblllzp8199-42-86 11:36:00* Test Item Value Reference Range Interpretation Comments Urine Protein (test code = 87537-2) 1+ NEGATIVE H [facility] HospitalUrine Glucose (UA)2019-05-19 11:36:00* Test Item Value Reference Range Interpretation Comments Urine Glucose (UA) (test code = 23023-3) 3+ NEGATIVE [facility] HospitalUrine Susqces7655-65-59 11:36:00* Test Item Value Reference Range Interpretation Comments Urine Ketones (test code = 99446-0) 2+ NEGATIVE H [facility] Hydglpklpkbk0847-88-48 11:36:00* Test Item Value Reference Range Interpretation Comments Urine Urobilinogen (test code = 07346-1) 0.2 0.2-1 [facility] HospitalUrine Zorkyrocs0358-19-86 11:36:00* Test Item Value Reference Range Interpretation Comments Urine Bilirubin (test code = 1977-8) NEGATIVE NEGATIVE [facility] HospitalUrine Otpqc4671-35-10 11:36:00* Test Item Value Reference Range Interpretation Comments Urine Blood (test code = 85016-4) 1+ NEGATIVE [facility] HospitalUrine Opiates Idezoc7315-73-87 10:59:00* Test Item Value Reference Range Interpretation Comments Urine Opiates Screen (test code = 44366-8) NEGATIVE NEGATIVE ALL TESTS PERFORMED MANUALLY ON [employer] TOX/SEE TESTUvalde Memorial HospitalUrine Barbiturates Qkwbql0659-52-51 10:59:00* Test Item Value Reference Range Interpretation Comments Urine Barbiturates Screen (test code = 442346213) NEGATIVE NEGA TIVE [facility] HospitalUrine Phencyclidine Ykoapf4203-58-33 10:59:00* Test Item Value Reference Range Interpretation Comments Urine Phencyclidine Screen (test code = 72970-2) NEGATIVE NEGAT JESSIKA [facility] HospitalUrine Amphetamines Lyvnvv8205-62-78 10:59:00* Test Item Value Reference Range Interpretation Comments Urine Amphetamines Screen (test code = 49650-3) NEGATIVE NEGATI VE [facility] HospitalUrine Methamphetamines Gjenln9562-52-46 10:59:00* Test Item Value Reference Range Interpretation Comments Urine Methamphetamines Screen (test code = Urine Metha mphetamines Screen) NEGATIVE NEGATIVE [facility] HospitalUrine Benzodiazepines Lluync7408-43-83 10:59:00* Test Item Value Reference Range Interpretation Comments Urine Benzodiazepines Screen (test code = 62446-2) NEGATIVE NEG ATIVE [facility] HospitalUrine Cocaine Nhstni6895-69-96 10:59:00* Test Item Value Reference Range Interpretation Comments Urine Cocaine Screen (test code = 3398-5) NEGATIVE NEGATIVE [facility] HospitalUrine Cannabinoids Muewfy2480-16-05 10:59:00* Test Item Value Reference Range Interpretation Comments Urine Cannabinoids Screen (test code = 65453-8) POSITIVE NEGATI VE H THESE RESULTS ARE FOR MEDICAL TREATMENT ONLYTHIS REPORT CONTAINS UNCONFIR MED SCREENING RESULTS*POSITIVE RESULTS WILL BE CONFIRMED BY REFERENCE LAB UPON R EQUEST CUT-OFFDRUG CLASS CONCENTRATION ng/mLAmphetamines 1000Methamphetamines 1000Cocaine 300Opiate 300Phencyc lidine 25Cannabinoid 50Barbiturates 300Benzodiazepine 300Methadone 300 This test p rovides only a screen. Positive results should be repeated by a confirmatory navya t.[facility] HospitalUrine Methadone Rxxmsu5440-20-30 10:59:00* Test Item Value Reference Range Interpretation Comments Urine Methadone Screen (test code = 33223-7) NEGATIVE NEGATIVE THESE RESULTS ARE FOR MEDICAL TREATMENT ONLYTHIS REPORT CONTAINS UNCONFIR MED SCREENING RESULTS*POSITIVE RESULTS WILL BE CONFIRMED BY REFERENCE LAB UPON R EQUEST CUT-OFFDRUG CLASS CONCENTRATION ng/mLAmphetamines 1000Methamphetamines 1000Cocaine Metabolite 300Opiate 300Phencyc lidine 25Cannabinoid 50Barbiturates 300Benzodiazepine 300Methadone 300[facility] Natri[facility]tic Ivuxwvt8050-96-16 10:40:00* Test Item Value Reference Range Interpretation Comments B-Type Natriuretic Peptide (test code = 40546-2) 28.6 0-100 [facility] HospitalCreatine Kinase YS7551-09-84 10:40:00* Test Item Value Reference Range Interpretation Comments Creatine Kinase MB (test code = 36170-4) 1.60 0-5.0 [facility] HospitalTroponin V6585-09-36 10:40:00* Test Item Value Reference Range Interpretation Comments Troponin I (test code = TOY3087) 0.001 0-0.300 [facility] HospitalB-Type Natriuretic Cvsqfay3099-51-20 10:40:00* Test Item Value Reference Range Interpretation Comments B-Type Natriuretic Peptide (test code = 95882-7) 28.6 0-100 [facility] HospitalB-Type Natriuretic Iuodljq0519-45-84 10:40:00* Test Item Value Reference Range Interpretation Comments B-Type Natriuretic Peptide (test code = 35466-6) 28.6 0-100 [facility] HospitalProthrombin Ywnc0440-69-02 10:32:00* Test Item Value Reference Range Interpretation Comments Prothrombin Time (test code = 5902-2) 14.9 11.9-14.5 H [facility] HospitalProthromb Time International Ratio 2019-05-19 10:32:00* Test Item Value Reference Range Interpretation Comments Prothromb Time International Ratio (test code = 6301-6) 1.12 Oral Anticoagulant Therapy INR Values:1. Low Intensity Therapy 1.5 - 2.02 . Moderate Intensity Therapy 2.0 - 3.03. High Intensity Therapy(1) 2.5 - 3. 54. High Intensity Therapy(2) 3.0 - 4.05. Panic Value INR > 5.0 [facility] HospitalActivated Partial Thromboplast Time 2019-05-19 10:32:00* Test Item Value Reference Range Interpretation Comments Activated Partial Thromboplast Time (test code = 53848-2) 31.5 23.8-35.5 [facility] HospitalTotal Gipballaa6137-68-73 10:31:00* Test Item Value Reference Range Interpretation Comments Total Bilirubin (test code = 1975-2) 0.8 0.2-1.2 [facility] HospitalAspartate Amino Transf (AST/SGOT) 2019-05-19 10:31:00* Test Item Value Reference Range Interpretation Comments Aspartate Amino Transf (AST/SGOT) (test code = Aspartate Amino Transf (AST/SGOT)) 12 5-34 [facility] HospitalAlanine Aminotransferase (ALT/SGPT) 2019-05-19 10:31:00* Test Item Value Reference Range Interpretation Comments Alanine Aminotransferase (ALT/SGPT) (test code = 1742-6) 17 0-55 [facility] HospitalTotal Easuifr5002-89-22 10:31:00* Test Item Value Reference Range Interpretation Comments Total Protein (test code = 2885-2) 8.5 6.5-8.1 H [facility] HospitalAlbumin2019-07-09 10:31:00* Test Item Value Reference Range Interpretation Comments Albumin (test code = 1751-7) 4.6 3.5-5.0 [facility] HospitalGlobulin2019-07-09 10:31:00* Test Item Value Reference Range Interpretation Comments Globulin (test code = 75541-8) 3.9 2.3-3.5 H [facility] HospitalAlbumin/Globulin Lyohh5291-96-74 10:31:00 * Test Item Value Reference Range Interpretation Comments Albumin/Globulin Ratio (test code = 1759-0) 1.2 0.8-2.0 [facility] HospitalAlkaline Cdljiadbdds1411-50-59 10:31:00* Test Item Value Reference Range Interpretation Comments Alkaline Phosphatase (test code = 6768-6) 149 40-150 [facility] HospitalCreatine Thdvxa5804-73-09 10:31:00* Test Item Value Reference Range Interpretation Comments Creatine Kinase (test code = 2157-6) 59 30-200 [facility] HospitalCHEST SINGLE (PORTABLE)2019-05-19 10:11:00 [place] [address] Patient Name: KEVIN LOMELI MR #: [id number] : 1995 Age/Sex: 24/M Req #: [id number] Adm Physician: Ordered by: KEYON MIRANDA MD Report #: [id number] Location: ER Room/Bed: Procedure: [id number] DX /CHEST SINGLE (PORTABLE) Exam Date: 05/19/19 Exam Ti me: 929 REPORT STATUS: Signed E XAMINATION: CHEST SINGLE (PORTABLE) INDICATION: Shortness of breath COMPARISON: FINDINGS: TUBES and LINES: None. LUNGS: The l la nena volumes are normal. No focal consolidation or pulmonary edema. PLEURA: No pleural effusion or pneumothorax. HEART AND MEDIASTINUM: The cardiomed iastinal silhouette is normal in size and contour. BONES AND SOFT TISSUES : No acute fracture or dislocation. UPPER ABDOMEN: No free air under the di aphragm. IMPRESSION: No focal pneumonia or pulmonary edema. Signed by: Leida Kendall MD on 05/19/2019 10:14 AM Dictated By: LEIDA KENDALL MD Elect ronically Signed By: LEIDA KENDALL MD on 05/19/19 1014 Transcribed By: GABY on 05/19/19 1014 COPY TO: KEYON MIRANDA MD Arterial Blood pH 2019-05-19 10:03:00* Test Item Value Reference Range Interpretation Comments Arterial Blood pH (test code = 2744-1) 6.97 7.31-7.41 LL Results called/hand delivered to at [facility] on 05/19/19 by Eder Garcia. [place].[facility] HospitalArterial Blood Partial Pressure CO2 2019-05-19 10:03:00* Test Item Value Reference Range Interpretation Comments Arterial Blood Partial Pressure CO2 (test code = 2018-) 9 41-51 L [facility] HospitalArterial Blood Partial Pressure O2 2019-05-19 10:03:00* Test Item Value Reference Range Interpretation Comments Arterial Blood Partial Pressure O2 (test code = 2019-8) 147 80-105 H [facility] HospitalArterial Blood XLU61207-06-88 10:03:00* Test Item Value Reference Range Interpretation Comments Arterial Blood HCO3 (test code = 1960-4) 2 23-28 L [facility] HospitalArterial Blood Base Jmpkcl3200-80-95 10:03:00* Test Item Value Reference Range Interpretation Comments Arterial Blood Base Excess (test code = 1925-7) -30.0 -2-3 L [facility] HospitalArterial Blood Oxygen Saturation 2019-05-19 10:03:00* Test Item Value Reference Range Interpretation Comments Arterial Blood Oxygen Saturation (test code = 2708-6) 98.0 95-98 [facility] HospitalFiO22019-07-09 10:03:00* Test Item Value Reference Range Interpretation Comments FiO2 (test code = FiO2) 21 Pt was on Room air when ABG was drawnUvalde Memorial Hospital Bedside Mjmzuyq7917-26-82 08:09:00* Test Item Value Reference Range Interpretation Comments Bedside Glucose (test code = 02226-7) 142 70-120 H Meter ID: [id number] Texas Spine & Surgical Hospitalodium Level 2019-03-03 07:29:00* Test Item Value Reference Range Interpretation Comments Sodium Level (test code = 2951-2) 131 136-145 L [facility] HospitalPotassium Rihgh4097-72-36 07:29:00* Test Item Value Reference Range Interpretation Comments Potassium Level (test code = 2823-3) 4.0 3.5-5.1 [facility] HospitalChloride Oykxb6499-38-50 07:29:00* Test Item Value Reference Range Interpretation Comments Chloride Level (test code = 2075-0) 101 98-107 [facility] HospitalCarbon Dioxide Nvwgs2790-66-44 07:29:00* Test Item Value Reference Range Interpretation Comments Carbon Dioxide Level (test code = 2028-9) 22 22-29 [facility] HospitalAnion Hlc3156-22-04 07:29:00* Test Item Value Reference Range Interpretation Comments Anion Gap (test code = 72646-2) 12.0 8-16 [facility] HospitalBlood Urea Yckgbfho1964-42-25 07:29:00* Test Item Value Reference Range Interpretation Comments Blood Urea Nitrogen (test code = 3094-0) 11 7-26 [facility] HospitalCreatinine2019-04-23 07:29:00* Test Item Value Reference Range Interpretation Comments Creatinine (test code = 2160-0) 0.72 0.72-1.25 [facility] HospitalBUN/Creatinine Sgvmr8057-85-32 07:29:00* Test Item Value Reference Range Interpretation Comments BUN/Creatinine Ratio (test code = 3097-3) 15 6-25 [facility] HospitalEstimat Glomerular Filtration Rate 2019-03-03 07:29:00* Test Item Value Reference Range Interpretation Comments Estimat Glomerular Filtration Rate (test code = 057286874) > 60 >60 Ranges were taken from the National Kidney Disease Education Program and the [facility] Foundation literature.Reference ranges:60 or greater: Erpoeh51-20 ( for 3 consecutive months): Chronic kidney disease 15 or less: Kidney failureUvalde Memorial HospitalGlucose Dbedt1095-40-41 07:29:00* Test Item Value Reference Range Interpretation Comments Glucose Level (test code = TYQ9103) 142 74-118 H [facility] HospitalCalcium Tgbgc6000-10-31 07:29:00* Test Item Value Reference Range Interpretation Comments Calcium Level (test code = 02889-9) 8.4 8.4-10.2 [facility] HospitalMagnesium Apynj3681-20-92 07:29:00* Test Item Value Reference Range Interpretation Comments Magnesium Level (test code = 67264-4) 2.1 1.3-2.1 [facility] HospitalArterial Blood qW0966-42-08 01:35:00* Test Item Value Reference Range Interpretation Comments Arterial Blood pH (test code = 2744-1) 7.30 7.31-7.41 L [facility] HospitalArterial Blood Partial Pressure CO2 2019-03-03 01:35:00* Test Item Value Reference Range Interpretation Comments Arterial Blood Partial Pressure CO2 (test code = 2019-8) 33 41-51 L [facility] HospitalArterial Blood Partial Pressure O2 2019-03-03 01:35:00* Test Item Value Reference Range Interpretation Comments Arterial Blood Partial Pressure O2 (test code = 2018-) 108 80-105 H [facility] HospitalArterial Blood GWI09187-61-44 01:35:00* Test Item Value Reference Range Interpretation Comments Arterial Blood HCO3 (test code = 1960-4) 16 23-28 L [facility] HospitalArterial Blood Base Lhjoop5807-15-06 01:35:00* Test Item Value Reference Range Interpretation Comments Arterial Blood Base Excess (test code = 1925-7) -10.0 -2-3 L [facility] HospitalArterial Blood Oxygen Saturation 2019-03-03 01:35:00* Test Item Value Reference Range Interpretation Comments Arterial Blood Oxygen Saturation (test code = 2708-6) 98.0 95-98 [facility] HospitalFiO22019-04-23 01:35:00* Test Item Value Reference Range Interpretation Comments FiO2 (test code = FiO2) 21 PT IS ON ROOM AIR98%/68/16[facility] HospitalTotal Bilirubin 2019-03-02 23:28:00* Test Item Value Reference Range Interpretation Comments Total Bilirubin (test code = 1975-2) 1.1 0.2-1.2 [facility] HospitalAspartate Amino Transf (AST/SGOT) 2019-03-02 23:28:00* Test Item Value Reference Range Interpretation Comments Aspartate Amino Transf (AST/SGOT) (test code = Aspartate Amino Transf (AST/SGOT)) 14 5-34 [facility] HospitalAlanine Aminotransferase (ALT/SGPT) 2019-03-02 23:28:00* Test Item Value Reference Range Interpretation Comments Alanine Aminotransferase (ALT/SGPT) (test code = 1742-6) 19 0-55 [facility] HospitalTotal Lczobnz0298-83-54 23:28:00* Test Item Value Reference Range Interpretation Comments Total Protein (test code = 2885-2) 8.2 6.5-8.1 [facility] HospitalAlbumin2019-04-[facility] 23:28:00* Test Item Value Reference Range Interpretation Comments Albumin (test code = 1751-7) 4.0 3.5-5.0 [facility] HospitalGlobulin2019-04-[facility] 23:28:00* Test Item Value Reference Range Interpretation Comments Globulin (test code = 68362-0) 4.2 2.3-3.5 H [facility] HospitalAlbumin/Globulin Afbzf0663-84-41 23:28:00 * Test Item Value Reference Range Interpretation Comments Albumin/Globulin Ratio (test code = 1759-0) 1.0 0.8-2.0 [facility] HospitalAlkaline Yovhxrepewu9356-58-07 23:28:00* Test Item Value Reference Range Interpretation Comments Alkaline Phosphatase (test code = 6768-6) 103 40-150 [facility] HospitalAmylase Zigwz8187-88-55 23:28:00* Test Item Value Reference Range Interpretation Comments Amylase Level (test code = 1798-8) 17 25-125 L [facility] HospitalLipase2019-04-22 23:28:00* Test Item Value Reference Range Interpretation Comments Lipase (test code = 3040-3) 5 8-78 L [facility] HospitalAmylase Ppjqu1406-99-22 23:28:00* Test Item Value Reference Range Interpretation Comments Amylase Level (test code = 1798-8) 17 25-125 L [facility] HospitalLipase2019-04-22 23:28:00* Test Item Value Reference Range Interpretation Comments Lipase (test code = 3040-3) 5 8-78 L [facility] HospitalWhite Blood Avdpe2623-13-86 23:27:00* Test Item Value Reference Range Interpretation Comments White Blood Count (test code = 6690-2) 7.32 4.8-10.8 [facility] HospitalRed Blood Bkfnj8319-02-19 23:27:00* Test Item Value Reference Range Interpretation Comments Red Blood Count (test code = 789-8) 4.98 4.3-5.7 [facility] HospitalHemoglobin2019-04-22 23:27:00* Test Item Value Reference Range Interpretation Comments Hemoglobin (test code = 27828-3) 15.6 14.0-18.0 [facility] HospitalHematocrit2019-04-22 23:27:00* Test Item Value Reference Range Interpretation Comments Hematocrit (test code = 4544-3) 45.5 38.2-49.6 [facility] HospitalMean Corpuscular Bwcqpq7618-42-47 23:27:00* Test Item Value Reference Range Interpretation Comments Mean Corpuscular Volume (test code = 787-2) 91.4 81-99 [facility] HospitalMean Corpuscular Pbefyrhnwg3901-25-80 23:27:00* Test Item Value Reference Range Interpretation Comments Mean Corpuscular Hemoglobin (test code = 785-6) 31.3 28-32 [facility] HospitalMean Corpuscular Hemoglobin Concent 2019-03-02 23:27:00* Test Item Value Reference Range Interpretation Comments Mean Corpuscular Hemoglobin Concent (test code = 786-4) 34.3 31-35 [facility] HospitalRed Cell Distribution Hguad2461-07-13 23:27:00* Test Item Value Reference Range Interpretation Comments Red Cell Distribution Width (test code = 38934-8) 13.0 11.7 -14.4 [facility] HospitalPlatelet Ddwuy0048-80-33 23:27:00* Test Item Value Reference Range Interpretation Comments Platelet Count (test code = 777-3) 331 140-360 [facility] HospitalNeutrophils (%) (Auto)2019-03-02 23:27:00 * Test Item Value Reference Range Interpretation Comments Neutrophils (%) (Auto) (test code = 34261-3) 72.7 38.7-80.0 [facility] HospitalLymphocytes (%) (Auto)2019-03-02 23:27:00 * Test Item Value Reference Range Interpretation Comments Lymphocytes (%) (Auto) (test code = 736-9) 23.1 18.0-39.1 [facility] HospitalMonocytes (%) (Auto)2019-03-02 23:27:00* Test Item Value Reference Range Interpretation Comments Monocytes (%) (Auto) (test code = 5905-5) 3.8 4.4-11.3 L [facility] HospitalEosinophils (%) (Auto)2019-03-02 23:27:00 * Test Item Value Reference Range Interpretation Comments Eosinophils (%) (Auto) (test code = 713-8) 0.0 0.0-6.0 [facility] HospitalBasophils (%) (Auto)2019-03-02 23:27:00* Test Item Value Reference Range Interpretation Comments Basophils (%) (Auto) (test code = 706-2) 0.1 0.0-1.0 [facility] HospitalIM GRANULOCYTES %2019-03-02 23:27:00* Test Item Value Reference Range Interpretation Comments IM GRANULOCYTES % (test code = IM GRANULOCYTES %) 0.3 0.0- 1.0 [facility] HospitalNeutrophils # (Auto)2019-03-02 23:27:00* Test Item Value Reference Range Interpretation Comments Neutrophils # (Auto) (test code = 751-8) 5.3 2.1-6.9 [facility] HospitalLymphocytes # (Auto)2019-03-02 23:27:00* Test Item Value Reference Range Interpretation Comments Lymphocytes # (Auto) (test code = 88210-2) 1.7 1.0-3.2 [facility] HospitalMonocytes # (Auto)2019-03-02 23:27:00* Test Item Value Reference Range Interpretation Comments Monocytes # (Auto) (test code = 742-7) 0.3 0.2-0.8 [facility] HospitalEosinophils # (Auto)2019-03-02 23:27:00* Test Item Value Reference Range Interpretation Comments Eosinophils # (Auto) (test code = 711-2) 0.0 0.0-0.4 [facility] HospitalBasophils # (Auto)2019-03-02 23:27:00* Test Item Value Reference Range Interpretation Comments Basophils # (Auto) (test code = 704-7) 0.0 0.0-0.1 [facility] HospitalAbsolute Immature Granulocyte (auto 2019-03-02 23:27:00* Test Item Value Reference Range Interpretation Comments Absolute Immature Granulocyte (auto (navya t code = Absolute Immature Granulocyte (auto) 0.02 0-0.1 [facility] HospitalUrine XNY8997-70-28 23:10:00* Test Item Value Reference Range Interpretation Comments Urine WBC (test code = 5821-4) 6-10 0-5 H [facility] HospitalUrine OMV1366-00-40 23:10:00* Test Item Value Reference Range Interpretation Comments Urine RBC (test code = 35696-7) >50 0-5 H [facility] HospitalUrine Nzrvzlmv6324-44-32 23:10:00* Test Item Value Reference Range Interpretation Comments Urine Bacteria (test code = 72598-4) FEW NONE [facility] HospitalUrine Epithelial Hgtxh4361-48-22 23:10:00 * Test Item Value Reference Range Interpretation Comments Urine Epithelial Cells (test code = 23445-0) FEW NONE [facility] HospitalUrine Uuaoz9603-53-95 22:42:00* Test Item Value Reference Range Interpretation Comments Urine Color (test code = 5778-6) YELLOW YELLOW [facility] HospitalUrine Jszqjdr9427-97-65 22:42:00* Test Item Value Reference Range Interpretation Comments Urine Clarity (test code = 23958-4) CLEAR CLEAR [facility] HospitalUrine Specific Awgsbpg9793-14-38 22:42:00 * Test Item Value Reference Range Interpretation Comments Urine Specific [place] (test code = 5811-5) 1.030 1.010-1.02 5 H [facility] HospitalUrine gD7809-76-42 22:42:00* Test Item Value Reference Range Interpretation Comments Urine pH (test code = 61499-4) 6 5-7 [facility] HospitalU[facility] Leukocyte Xlckufba6973-31-72 22:42:00* Test Item Value Reference Range Interpretation Comments Urine Leukocyte Esterase (test code = 5799-2) NEGATIVE NEGATIVE [facility] HospitalUrine Mdtarda6514-98-23 22:42:00* Test Item Value Reference Range Interpretation Comments Urine Nitrite (test code = 19778-3) NEGATIVE NEGATIVE [facility] HospitalUrine Ytoizzi1546-60-03 22:42:00* Test Item Value Reference Range Interpretation Comments Urine Protein (test code = 5804-0) 1+ NEGATIVE H [facility] HospitalUrine Glucose (UA)2019-03-02 22:42:00* Test Item Value Reference Range Interpretation Comments Urine Glucose (UA) (test code = 2349-9) 3+ NEGATIVE H [facility] HospitalUrine Aasyzck7110-32-68 22:42:00* Test Item Value Reference Range Interpretation Comments Urine Ketones (test code = 91398-1) 3+ NEGATIVE H [facility] Krtpibgzhtyu2246-01-29 22:42:00* Test Item Value Reference Range Interpretation Comments Urine Urobilinogen (test code = 20456-2) 0.2 0.2-1 [facility] HospitalUrine Kuidghgkg2340-57-27 22:42:00* Test Item Value Reference Range Interpretation Comments Urine Bilirubin (test code = 1978-6) NEGATIVE NEGATIVE [facility] HospitalU[facility] Jdoqt7569-59-87 22:42:00* Test Item Value Reference Range Interpretation Comments Urine Blood (test code = 86593-9) 4+ NEGATIVE H [facility] HospitalUrine Opiates Biyngx8387-32-86 22:37:00* Test Item Value Reference Range Interpretation Comments Urine Opiates Screen (test code = 78858-2) NEGATIVE NEGATIVE ALL TESTS PERFORMED MANUALLY ON [employer] TOX/SEE TESTUvalde Memorial HospitalUrine Barbiturates Agmatc9882-18-14 22:37:00* Test Item Value Reference Range Interpretation Comments Urine Barbiturates Screen (test code = 904081504) NEGATIVE NEGA TIVE [facility] HospitalUrine Phencyclidine Dfvlqb5359-10-55 22:37:00* Test Item Value Reference Range Interpretation Comments Urine Phencyclidine Screen (test code = 42614-5) NEGATIVE NEGAT JESSIKA [facility] HospitalUrine Amphetamines Zawnrs2951-74-54 22:37:00* Test Item Value Reference Range Interpretation Comments Urine Amphetamines Screen (test code = 18733-8) NEGATIVE NEGATI VE [facility] HospitalU[facility] Methamphetamines Xpjeuy9529-56-91 22:37:00* Test Item Value Reference Range Interpretation Comments Urine Methamphetamines Screen (test code = Urine Metha mphetamines Screen) NEGATIVE NEGATIVE [facility] HospitalU[facility] Benzodiazepines Hrerxy6770-56-61 22:37:00* Test Item Value Reference Range Interpretation Comments Urine Benzodiazepines Screen (test code = 64245-0) NEGATIVE NEG ATIVE [facility] HospitalU[facility] Cocaine Autduq1433-69-42 22:37:00* Test Item Value Reference Range Interpretation Comments Urine Cocaine Screen (test code = 3398-5) NEGATIVE NEGATIVE [facility] HospitalUrine Cannabinoids Pgfmny0557-89-71 22:37:00* Test Item Value Reference Range Interpretation Comments Urine Cannabinoids Screen (test code = 12052-6) POSITIVE NEGATI VE H THESE RESULTS ARE FOR MEDICAL TREATMENT ONLYTHIS REPORT CONTAINS UNCONFIR MED SCREENING RESULTS*POSITIVE RESULTS WILL BE CONFIRMED BY REFERENCE LAB UPON R EQUEST CUT-OFFDRUG CLASS CONCENTRATION ng/mLAmphetamines 1000Methamphetamines 1000Cocaine 300Opiate 300Phencyc lidine 25Cannabinoid 50Barbiturates 300Benzodiazepine 300Methadone 300 This test p rovides only a screen. Positive results should be repeated by a confirmatory navya t.[facility] HospitalUrine Methadone Onteyl8678-68-41 22:37:00* Test Item Value Reference Range Interpretation Comments Urine Methadone Screen (test code = 02159-6) NEGATIVE NEGATIVE THESE RESULTS ARE FOR MEDICAL TREATMENT ONLYTHIS REPORT CONTAINS UNCONFIR MED SCREENING RESULTS*POSITIVE RESULTS WILL BE CONFIRMED BY REFERENCE LAB UPON R EQUEST CUT-OFFDRUG CLASS CONCENTRATION ng/mLAmphetamines 1000Methamphetamines 1000Cocaine Metabolite 300Opiate 300Phencyc lidine 25Cannabinoid 50Barbiturates 300Benzodiazepine 300Methadone 300[facility]Bed[facility] Bhpiijb6615-63-58 11:48:00* Test Item Value Reference Range Interpretation Comments Bedside Glucose (test code = 27034-4) 82 70-120 Meter ID: [id number] [facility] Hospitalodium Level 2019-02-02 05:44:00* Test Item Value Reference Range Interpretation Comments Sodium Level (test code = 2951-2) 129 136-145 L [facility] HospitalPotassium Gnink2381-59-10 05:44:00* Test Item Value Reference Range Interpretation Comments Potassium Level (test code = 2823-3) 2.9 3.5-5.1 LL Results repeated and called to JAYLEN ORTIZ RN at 0543 on 02/02/19 by Erwin Anderosn. Read back and verified.[facility] HospitalChloride Level 2019-02-02 05:44:00* Test Item Value Reference Range Interpretation Comments Chloride Level (test code = 2075-0) 88 98-107 L [facility] HospitalCarbon Dioxide Sfkhq7447-25-19 05:44:00* Test Item Value Reference Range Interpretation Comments Carbon Dioxide Level (test code = 2028-9) 35 22-29 H [facility] HospitalAnion Yes4975-35-27 05:44:00* Test Item Value Reference Range Interpretation Comments Anion Gap (test code = 04955-1) 8.9 8-16 [facility] HospitalBlood Urea Krdurofh9180-73-95 05:44:00* Test Item Value Reference Range Interpretation Comments Blood Urea Nitrogen (test code = 3094-0) 5 7-26 L [facility] HospitalCreatinine2019-03-25 05:44:00* Test Item Value Reference Range Interpretation Comments Creatinine (test code = 2160-0) 0.57 0.72-1.25 L [facility] HospitalBUN/Creatinine Mhcci1619-96-33 05:44:00* Test Item Value Reference Range Interpretation Comments BUN/Creatinine Ratio (test code = 3097-3) 9 6-25 [facility] HospitalEstimat Glomerular Filtration Rate 2019-02-02 05:44:00* Test Item Value Reference Range Interpretation Comments Estimat Glomerular Filtration Rate (test code = 447861341) > 60 >60 Ranges were taken from the National Kidney Disease Education Program and the [facility] access hospital Kid[employer] Foundation literature.Reference ranges:60 or greater: Vmicar10-37 ( for 3 consecutive months): Chronic kidney disease 15 or less: Kidney failureUvalde Memorial HospitalGlucose Ufaeu1868-94-34 05:44:00* Test Item Value Reference Range Interpretation Comments Glucose Level (test code = RYG9677) 184 74-118 H [facility] HospitalCalcium Hdtil2216-89-22 05:44:00* Test Item Value Reference Range Interpretation Comments Calcium Level (test code = 77326-4) 8.4 8.4-10.2 [facility] HospitalTotal Nejqskbzi5174-41-63 05:44:00* Test Item Value Reference Range Interpretation Comments Total Bilirubin (test code = 1975-2) 0.6 0.2-1.2 [facility] HospitalAspartate Amino Transf (AST/SGOT) 2019-02-02 05:44:00* Test Item Value Reference Range Interpretation Comments Aspartate Amino Transf (AST/SGOT) (test code = Aspartate Amino Transf (AST/SGOT)) 13 5-34 [facility] HospitalAlanine Aminotransferase (ALT/SGPT) 2019-02-02 05:44:00* Test Item Value Reference Range Interpretation Comments Alanine Aminotransferase (ALT/SGPT) (test code = 1742-6) 8 0-55 [facility] HospitalTotal Cwgkywg2607-82-43 05:44:00* Test Item Value Reference Range Interpretation Comments Total Protein (test code = 2885-2) 5.5 6.5-8.1 L [facility] HospitalAlbumin2019-03-25 05:44:00* Test Item Value Reference Range Interpretation Comments Albumin (test code = 1751-7) 3.3 3.5-5.0 L [facility] HospitalGlobulin2019-03-25 05:44:00* Test Item Value Reference Range Interpretation Comments Globulin (test code = 78708-7) 2.2 2.3-3.5 L [facility] HospitalAlbumin/Globulin Buigw2367-63-88 05:44:00 * Test Item Value Reference Range Interpretation Comments Albumin/Globulin Ratio (test code = 1759-0) 1.5 0.8-2.0 [facility] HospitalAlkaline Lsmpiougmcd8892-27-54 05:44:00* Test Item Value Reference Range Interpretation Comments Alkaline Phosphatase (test code = 6768-6) 70 40-150 [facility] HospitalPhosphorus Cvbye5490-17-68 07:19:00* Test Item Value Reference Range Interpretation Comments Phosphorus Level (test code = SHL1187) 1.0 2.3-4.7 L [facility] HospitalMagnesium Uyurc5870-04-64 07:19:00* Test Item Value Reference Range Interpretation Comments Magnesium Level (test code = 05621-6) 1.8 1.3-2.1 [facility] HospitalPhosphorus Wcigg8594-06-35 07:19:00* Test Item Value Reference Range Interpretation Comments Phosphorus Level (test code = WFH4969) 1.0 2.3-4.7 L [facility] HospitalPhosphorus Kuwwj4098-74-36 07:19:00* Test Item Value Reference Range Interpretation Comments Phosphorus Level (test code = KXQ2683) 1.0 2.3-4.7 L [facility] HospitalWhite Blood Azfrd0503-64-72 06:57:00* Test Item Value Reference Range Interpretation Comments White Blood Count (test code = 6690-2) 7.09 4.8-10.8 [facility] HospitalRed Blood Vzuiy4904-00-52 06:57:00* Test Item Value Reference Range Interpretation Comments Red Blood Count (test code = 789-8) 4.74 4.3-5.7 [facility] HospitalHemoglobin2019-03-23 06:57:00* Test Item Value Reference Range Interpretation Comments Hemoglobin (test code = 52878-0) 14.6 14.0-18.0 [facility] HospitalHematocrit2019-03-23 06:57:00* Test Item Value Reference Range Interpretation Comments Hematocrit (test code = 4544-3) 38.7 38.2-49.6 [facility] HospitalMean Corpuscular Pzupyz8567-51-69 06:57:00* Test Item Value Reference Range Interpretation Comments Mean Corpuscular Volume (test code = 787-2) 81.6 81-99 [facility] HospitalMean Corpuscular Ouvfmsltae5620-51-57 06:57:00* Test Item Value Reference Range Interpretation Comments Mean Corpuscular Hemoglobin (test code = 785-6) 30.8 28-32 [facility] HospitalMean Corpuscular Hemoglobin Concent 2019-01-31 06:57:00* Test Item Value Reference Range Interpretation Comments Mean Corpuscular Hemoglobin Concent (test code = 786-4) 37.7 31-35 H [facility] HospitalRed Cell Distribution Nkgzg5633-36-23 06:57:00* Test Item Value Reference Range Interpretation Comments Red Cell Distribution Width (test code = 54216-4) 12.6 11.7 -14.4 [facility] HospitalPlatelet Zozen8346-97-38 06:57:00* Test Item Value Reference Range Interpretation Comments Platelet Count (test code = 777-3) 300 140-360 [facility] HospitalNeutrophils (%) (Auto)2019-01-31 06:57:00 * Test Item Value Reference Range Interpretation Comments Neutrophils (%) (Auto) (test code = 45084-9) 64.9 38.7-80.0 [facility] HospitalLymphocytes (%) (Auto)2019-01-31 06:57:00 * Test Item Value Reference Range Interpretation Comments Lymphocytes (%) (Auto) (test code = 736-9) 26.5 18.0-39.1 [facility] HospitalMonocytes (%) (Auto)2019-01-31 06:57:00* Test Item Value Reference Range Interpretation Comments Monocytes (%) (Auto) (test code = 5905-5) 6.8 4.4-11.3 [facility] HospitalEosinophils (%) (Auto)2019-01-31 06:57:00 * Test Item Value Reference Range Interpretation Comments Eosinophils (%) (Auto) (test code = 713-8) 0.8 0.0-6.0 [facility] HospitalBasophils (%) (Auto)2019-01-31 06:57:00* Test Item Value Reference Range Interpretation Comments Basophils (%) (Auto) (test code = 706-2) 0.4 0.0-1.0 [facility] HospitalIM GRANULOCYTES %2019-01-31 06:57:00* Test Item Value Reference Range Interpretation Comments IM GRANULOCYTES % (test code = IM GRANULOCYTES %) 0.6 0.0- 1.0 [facility] HospitalNeutrophils # (Auto)2019-01-31 06:57:00* Test Item Value Reference Range Interpretation Comments Neutrophils # (Auto) (test code = 751-8) 4.6 2.1-6.9 [facility] HospitalLymphocytes # (Auto)2019-01-31 06:57:00* Test Item Value Reference Range Interpretation Comments Lymphocytes # (Auto) (test code = 08475-9) 1.9 1.0-3.2 [facility] HospitalMonocytes # (Auto)2019-01-31 06:57:00* Test Item Value Reference Range Interpretation Comments Monocytes # (Auto) (test code = 742-7) 0.5 0.2-0.8 [facility] HospitalEosinophils # (Auto)2019-01-31 06:57:00* Test Item Value Reference Range Interpretation Comments Eosinophils # (Auto) (test code = 711-2) 0.1 0.0-0.4 [facility] HospitalBasophils # (Auto)2019-01-31 06:57:00* Test Item Value Reference Range Interpretation Comments Basophils # (Auto) (test code = 704-7) 0.0 0.0-0.1 [facility] HospitalAbsolute Immature Granulocyte (auto 2019-01-31 06:57:00* Test Item Value Reference Range Interpretation Comments Absolute Immature Granulocyte (auto (navya t code = Absolute Immature Granulocyte (auto) 0.04 0-0.1 [facility] HospitalArterial Blood kM9873-66-38 17:24:00* Test Item Value Reference Range Interpretation Comments Arterial Blood pH (test code = 2744-1) 7.44 7.31-7.41 H [facility] HospitalArterial Blood Partial Pressure CO2 2019-01-30 17:24:00* Test Item Value Reference Range Interpretation Comments Arterial Blood Partial Pressure CO2 (test code = 2018-) 20 41-51 L [facility] HospitalArterial Blood Partial Pressure O2 2019-01-30 17:24:00* Test Item Value Reference Range Interpretation Comments Arterial Blood Partial Pressure O2 (test code = 2018-8) 121 80-105 H [facility] HospitalArterial Blood DXI60393-00-79 17:24:00* Test Item Value Reference Range Interpretation Comments Arterial Blood HCO3 (test code = 1960-4) 13 23-28 L [facility] HospitalArterial Blood Base Pibwre3570-46-28 17:24:00* Test Item Value Reference Range Interpretation Comments Arterial Blood Base Excess (test code = 1925-7) -11.0 -2-3 L [facility] HospitalArterial Blood Oxygen Saturation 2019-01-30 17:24:00* Test Item Value Reference Range Interpretation Comments Arterial Blood Oxygen Saturation (test code = 2708-6) 99.0 95-98 H [facility] HospitalFiO22019-03-22 17:24:00* Test Item Value Reference Range Interpretation Comments FiO2 (test code = FiO2) 21 PT ON ROOM AIR.[facility] HospitalUrine KDK4384-53-24 16:52:00* Test Item Value Reference Range Interpretation Comments Urine WBC (test code = 5821-4) NONE 0-5 [facility] HospitalUrine IUS2029-12-42 16:52:00* Test Item Value Reference Range Interpretation Comments Urine RBC (test code = 42790-2) NONE 0-5 [facility] HospitalUrine Qzxuzsjl4388-91-51 16:52:00* Test Item Value Reference Range Interpretation Comments Urine Bacteria (test code = 99711-9) FEW NONE [facility] HospitalUrine Epithelial Ybbxs9385-30-97 16:52:00 * Test Item Value Reference Range Interpretation Comments Urine Epithelial Cells (test code = 61787-3) NONE NONE [facility] Amorphous Ubnwjkrg2944-10-09 16:52:00* Test Item Value Reference Range Interpretation Comments Urine Amorphous Sediment (test code = 8246-1) MODERATE FEW H [facility] Hyaline Xaeag3565-72-37 16:52:00* Test Item Value Reference Range Interpretation Comments Urine Hyaline Casts (test code = 35012-0) 0-1 0-1 [facility] Amorphous Udyapfwh8209-07-56 16:52:00* Test Item Value Reference Range Interpretation Comments Urine Amorphous Sediment (test code = 8246-1) MODERATE FEW H [facility] Hyaline Kkyit7532-31-76 16:52:00* Test Item Value Reference Range Interpretation Comments Urine Hyaline Casts (test code = 28348-0) 0-1 0-1 [facility] Amorphous Wetygbyw9318-32-27 16:52:00* Test Item Value Reference Range Interpretation Comments Urine Amorphous Sediment (test code = 8246-1) MODERATE FEW H [facility] Hyaline Sfldb9430-37-85 16:52:00* Test Item Value Reference Range Interpretation Comments Urine Hyaline Casts (test code = 27807-5) 0-1 0-1 [facility] Amorphous Twcrumzu1451-98-19 16:52:00* Test Item Value Reference Range Interpretation Comments Urine Amorphous Sediment (test code = 8246-1) MODERATE FEW H [facility] Hyaline Vrqsm1235-89-20 16:52:00* Test Item Value Reference Range Interpretation Comments Urine Hyaline Casts (test code = 06704-4) 0-1 0-1 [facility] Amorphous Jahphczj7676-03-66 16:52:00* Test Item Value Reference Range Interpretation Comments Urine Amorphous Sediment (test code = 8246-1) MODERATE FEW H [facility] Hyaline Jdtxz4940-92-84 16:52:00* Test Item Value Reference Range Interpretation Comments Urine Hyaline Casts (test code = 12703-3) 0-1 0-1 [facility] HospitalAmylase Kfnph4657-13-02 16:50:00* Test Item Value Reference Range Interpretation Comments Amylase Level (test code = 1798-8) 15 25-125 L [facility] HospitalLipase2019-03-22 16:50:00* Test Item Value Reference Range Interpretation Comments Lipase (test code = 3040-3) < 4 8-78 L [facility] HospitalUrine Lxunj1106-02-96 16:38:00* Test Item Value Reference Range Interpretation Comments Urine Color (test code = 5778-6) STRAW YELLOW [facility] HospitalUrine Wmyiqvw5609-70-52 16:38:00* Test Item Value Reference Range Interpretation Comments Urine Clarity (test code = 96901-0) SL CLOUDY CLEAR H [facility] HospitalUrine Specific Muluzdy1294-21-85 16:38:00 * Test Item Value Reference Range Interpretation Comments Urine Specific [place] (test code = 5811-5) 1.030 1.010-1.02 5 H [facility] HospitalUrine zL6906-89-37 16:38:00* Test Item Value Reference Range Interpretation Comments Urine pH (test code = 08947-2) 6 5-7 [facility] HospitalU[facility] Leukocyte Snhnfzop9897-97-39 16:38:00* Test Item Value Reference Range Interpretation Comments Urine Leukocyte Esterase (test code = 5799-2) NEGATIVE NEGATIVE [facility] HospitalUrine Jiexaif9903-90-63 16:38:00* Test Item Value Reference Range Interpretation Comments Urine Nitrite (test code = 30351-5) NEGATIVE NEGATIVE [facility] HospitalUrine Bpojcwt6969-64-97 16:38:00* Test Item Value Reference Range Interpretation Comments Urine Protein (test code = 5804-0) 1+ NEGATIVE H [facility] HospitalUrine Glucose (UA)2019-01-30 16:38:00* Test Item Value Reference Range Interpretation Comments Urine Glucose (UA) (test code = 2349-9) 2+ NEGATIVE H [facility] HospitalUrine Ppuygvo7213-30-48 16:38:00* Test Item Value Reference Range Interpretation Comments Urine Ketones (test code = 53729-9) 2+ NEGATIVE H [facility] Ntdhhgyjnuds8620-28-15 16:38:00* Test Item Value Reference Range Interpretation Comments Urine Urobilinogen (test code = 38022-1) 0.2 0.2-1 [facility] [id number] 16:38:00* Test Item Value Reference Range Interpretation Comments Urine Bilirubin (test code = 1978-6) 1+ NEGATIVE H Confirmatory test currently unavailable. False positive results may occur.[facility] [id number] 16:38:00* Test Item Value Reference Range Interpretation Comments Urine Blood (test code = 33820-2) NEGATIVE NEGATIVE [facility]2019-[facility] 16:31:00* Test Item Value Reference Range Interpretation Comments GLUBED (test code = GLUBED) 166 mg/dL 74-106 H Performed by certified sonar subsystem equipment operator at [facility] [id number] 14:11:00* Test Item Value Reference Range Interpretation Comments GLUBED (test code = GLUBED) 120 mg/dL 74-106 H Performed by certified sonar subsystem equipment operator at [facility] [id number] 14:11:00* Test Item Value Reference Range Interpretation Comments GLUBED (test code = GLUBED) 108 mg/dL 74-106 H Performed by certified sonar subsystem equipment operator at [facility] BASIC METABOLIC [id number] 13:37:00* Test Item Value Reference Range Interpretation Comments SODIUM (test code = NA) 130 mmol/L 136-145 L POTASSIUM (test code = K) 3.3 mmol/L 3.5-5.1 L CHLORIDE (test code = CL) 97.0 mmol/L 98-107 L CARBON DIOXIDE (test code = CO2) 20.0 mmol/L 21-32 L ANION GAP (test code = GAP) 16.3 10-20 N GLUCOSE (test code = GLU) 181 mg/dL 74-106 H BLOOD UREA NITROGEN (test code = BUN) 13 mg/dL 7-18 N GLOMERULAR FILTRATION RATE (test code = GFR) > 60 mL/min >=60 Estimated GFR by using Modified MDRD formula.Chronic kidney disease is defined as either kidney damageor GFR <60 mL/min/1.73 m2 for >3 months. CREATININE (test code = CREAT) 0.60 mg/dL 0.7-1.3 L BUN/CREATININE RATIO (test code = BUN/CREA) 21.2 10-20 H CALCIUM (test code = CA) 7.6 mg/dL 8.5-10.1 L [id number] 11:24:00* Test Item Value Reference Range Interpretation Comments GLUBED (test code = GLUBED) 114 mg/dL 74-106 H Performed by certified sonar subsystem equipment operator at [facility] BASIC METABOLIC [id number] 10:53:00* Test Item Value Reference Range Interpretation Comments SODIUM (test code = NA) 129 mmol/L 136-145 L POTASSIUM (test code = K) 3.8 mmol/L 3.5-5.1 N CHLORIDE (test code = CL) 96.0 mmol/L 98-107 L CARBON DIOXIDE (test code = CO2) 20.0 mmol/L 21-32 L ANION GAP (test code = GAP) 16.8 10-20 N GLUCOSE (test code = GLU) 132 mg/dL 74-106 H BLOOD UREA NITROGEN (test code = BUN) 14 mg/dL 7-18 N GLOMERULAR FILTRATION RATE (test code = GFR) > 60 mL/min >=60 Estimated GFR by using Modified MDRD formula.Chronic kidney disease is defined as either kidney damageor GFR <60 mL/min/1.73 m2 for >3 months. CREATININE (test code = CREAT) 0.70 mg/dL 0.7-1.3 N BUN/CREATININE RATIO (test code = BUN/CREA) 21.0 10-20 H CALCIUM (test code = CA) 8.2 mg/dL 8.5-10.1 L [id number] 10:29:00* Test Item Value Reference Range Interpretation Comments GLUBED (test code = GLUBED) 129 mg/dL 74-106 H Performed by certified sonar subsystem equipment operator at [facility] [id number] 09:49:00* Test Item Value Reference Range Interpretation Comments GLUBED (test code = GLUBED) 139 mg/dL 74-106 H Performed by certified sonar subsystem equipment operator at [facility] [id number] 08:30:00* Test Item Value Reference Range Interpretation Comments GLUBED (test code = GLUBED) 138 mg/dL 74-106 H Performed by certified sonar subsystem equipment operator at [facility] [id number] 08:19:00* Test Item Value Reference Range Interpretation Comments GLUBED (test code = GLUBED) 133 mg/dL 74-106 H Performed by certified sonar subsystem equipment operator at [facility] [id number] 06:19:00* Test Item Value Reference Range Interpretation Comments GLUBED (test code = GLUBED) 149 mg/dL 74-106 H Performed by certified sonar subsystem equipment operator at [facility] [id number] 06:19:00* Test Item Value Reference Range Interpretation Comments GLUBED (test code = GLUBED) 124 mg/dL 74-106 H Performed by certified sonar subsystem equipment operator at [facility] [id number] 06:19:00* Test Item Value Reference Range Interpretation Comments GLUBED (test code = GLUBED) 100 mg/dL 74-106 N Performed by certified sonar subsystem equipment operator at [facility] [id number] 06:19:00* Test Item Value Reference Range Interpretation Comments GLUBED (test code = GLUBED) 117 mg/dL 74-106 H Performed by certified sonar subsystem equipment operator at [facility] [id number] 06:19:00* Test Item Value Reference Range Interpretation Comments GLUBED (test code = GLUBED) 134 mg/dL 74-106 H Performed by certified sonar subsystem equipment operator at [facility] [id number] 06:19:00* Test Item Value Reference Range Interpretation Comments GLUBED (test code = GLUBED) 171 mg/dL 74-106 H Performed by certified sonar subsystem equipment operator at [facility] [id number] 06:19:00* Test Item Value Reference Range Interpretation Comments GLUBED (test code = GLUBED) 180 mg/dL 74-106 H Performed by certified sonar subsystem equipment operator at [facility] [id number] 06:19:00* Test Item Value Reference Range Interpretation Comments GLUBED (test code = GLUBED) 222 mg/dL 74-106 H Performed by certified sonar subsystem equipment operator at [facility] [id number] 06:19:00* Test Item Value Reference Range Interpretation Comments GLUBED (test code = GLUBED) 254 mg/dL 74-106 H Performed by certified sonar subsystem equipment operator at [facility] PROCALCITONIN (PCT)2019-01-04 04:08:00* Test Item Value Reference Range Interpretation Comments PROCALCITONIN (PCT) (test code = PROCAL) < 0.05 ng/ml Concentration Interpretation (ng/mL) <0.51 Sepsis is not likely. Local bacterial infection is possible. (LOW RISK for progression to Sepsis) 0.51 - 2.00 Sepsis is possible, but other conditions are known to elevate PCT as well. (MODERATE RISK for progression to Sepsis) > 2.00 Sepsis is likely, unless other causes are known. (HIGH RISK for progression to Severe Sepsis or Septic Shock) 10.00 High likelihood of Severe Sepsis or Septic or higher Shock. *Increased PCT levels may not always be related to systemic bacterial infection.*Low PCT levels do not automatically exclude the presence of bacterial infection.*All results should be interpreted taking into account the patients history. [id number] 03:50:00* Test Item Value Reference Range Interpretation Comments GLYCOSYLATED HEMOGLOBIN (HA1C) (test code = GLYHGB) 8.8 % HbA1 4. 8-6.0 H ESTIMATED AVERAGE GLUCOSE (test code = EAG) 206 MG/DL BASIC METABOLIC [id number] 03:05:00* Test Item Value Reference Range Interpretation Comments SODIUM (test code = NA) 128 mmol/L 136-145 L RESU LT VERIFIED BY REPEAT ANALYSIS POTASSIUM (test code = K) 3.4 mmol/L 3.5-5.1 L CHLORIDE (test code = CL) 96.0 mmol/L 98-107 L CARBON DIOXIDE (test code = CO2) 15.0 mmol/L 21-32 L ANION GAP (test code = GAP) 20.4 10-20 H GLUCOSE (test code = GLU) 141 mg/dL 74-106 H BLOOD UREA NITROGEN (test code = BUN) 15 mg/dL 7-18 N GLOMERULAR FILTRATION RATE (test code = GFR) > 60 mL/min >=60 Estimated GFR by using Modified MDRD formula.Chronic kidney disease is defined as either kidney damageor GFR <60 mL/min/1.73 m2 for >3 months. CREATININE (test code = CREAT) 0.90 mg/dL 0.7-1.3 N BUN/CREATININE RATIO (test code = BUN/CREA) 16.0 10-20 N CALCIUM (test code = CA) 8.4 mg/dL 8.5-10.1 L [id number] 03:05:00* Test Item Value Reference Range Interpretation Comments PHOSPHORUS (test code = PHOS) 1.1 mg/dL 2.5-4.9 L [id number] 03:05:00* Test Item Value Reference Range Interpretation Comments MAGNESIUM (test code = MAG) 2.3 mg/dL 1.8-2.4 N CALCIUM [id number] 03:05:00* Test Item Value Reference Range Interpretation Comments CALCIUM IONIZED (test code = FIDEL) 1.20 mmol/L 1.12-1.32 N BASIC METABOLIC [id number] 03:02:00* Test Item Value Reference Range Interpretation Comments SODIUM (test code = NA) mmol/L 136-145 POTASSIUM (test code = K) mmol/L 3.5-5.1 CHLORIDE (test code = CL) mmol/L 98-107 CARBON DIOXIDE (test code = CO2) mmol/L 21-32 ANION GAP (test code = GAP) 10-20 GLUCOSE (test code = GLU) mg/dL 74-106 BLOOD UREA NITROGEN (test code = BUN) mg/dL 7-18 GLOMERULAR FILTRATION RATE (test code = GFR) mL/min >=60 CREATININE (test code = CREAT) mg/dL 0.7-1.3 BUN/CREATININE RATIO (test code = BUN/CREA) 10-20 CALCIUM (test code = CA) mg/dL 8.5-10.1 [id number] 03:02:00* Test Item Value Reference Range Interpretation Comments PHOSPHORUS (test code = PHOS) mg/dL 2.5-4.9 [id number] 03:02:00* Test Item Value Reference Range Interpretation Comments MAGNESIUM (test code = MAG) mg/dL 1.8-2.4 CALCIUM [id number] 03:02:00* Test Item Value Reference Range Interpretation Comments CALCIUM IONIZED (test code = FIDEL) 1.20 mmol/L 1.12-1.32 N CBC W/AUTO [id number] 02:43:00* Test Item Value Reference Range Interpretation Comments WHITE BLOOD CELL (test code = WBC) 10.7 K/mm3 4.5-12.5 N RED BLOOD CELL (test code = RBC) 5.43 mill/mm3 4.0-5.8 N HEMOGLOBIN (test code = HGB) 17.0 gram/dL 13.0-17.5 N HEMATOCRIT (test code = HCT) 46.4 % 42.0-52.0 N MEAN CELL VOLUME (test code = MCV) 85.5 fL 80-98 N MEAN CELL HGB (test code = MCH) 31.3 picogram 27.0-33.0 N MEAN CELL HGB CONCETRATION (test code = MCHC) 36.6 gram/dL 33.0-36. 0 H RED CELL DISTRIBUTION WIDTH (test code = RDW) 11.9 % 11.6-16. 2 N RED CELL DISTRIBUTION WIDTH SD (test code = RDW-SD) 36.8 fL 37 .0-51.0 L PLATELET COUNT (test code = PLT) 226 K/mm3 150-450 RESULT VERIFIED BY REPEAT ANALYSIS MEAN PLATELET VOLUME (test code = MPV) 9.9 fL 6.7-11.0 N NEUTROPHIL % (test code = NT%) 69.9 % 39.0-69.0 H IMMATURE GRANULOCYTE % (test code = IG%) 0.5 % 0.0-5.0 N LYMPHOCYTE % (test code = LY%) 23.2 % 25.0-55.0 L MONOCYTE % (test code = MO%) 5.8 % 0.0-10.0 N EOSINOPHIL % (test code = EO%) 0.3 % 0.0-5.0 N BASOPHIL % (test code = BA%) 0.3 % 0.0-1.0 N NUCLEATED RBC % (test code = NRBC%) 0.0 % 0-0 N NEUTROPHIL # (test code = NT#) 7.50 K/mm3 1.8-7.7 N IMMATURE GRANULOCYTE # (test code = IG#) 0.05 x10 3/uL 0-0.03 H LYMPHOCYTE # (test code = LY#) 2.48 K/mm3 1.0-5.0 N MONOCYTE # (test code = MO#) 0.62 K/mm3 0-0.8 N EOSINOPHIL # (test code = EO#) 0.03 K/mm3 0.0-0.5 N BASOPHIL # (test code = BA#) 0.03 K/mm3 0.0-0.2 N NUCLEATED RBC # (test code = NRBC#) 0.00 K/mm3 0.0-0.1 N MANUAL DIFF REQUIRED (test code = MDIFF) NO [id number] 22:46:00* Test Item Value Reference Range Interpretation Comments MAGNESIUM (test code = MAG) 2.1 mg/dL 1.8-2.4 N SPECIMEN COMMENTS: Q4H while on insulin dripSPECIMEN COMMENTS: Q8H while on insu dario dripBASIC METABOLIC [id number] 21:34:00* Test Item Value Reference Range Interpretation Comments SODIUM (test code = NA) 123 mmol/L 136-145 LL Resu lts called to [id number] by V.LAB.KP1 01/03/19 2134Critical results verified and read back by Nurse? Y POTASSIUM (test code = K) 3.7 mmol/L 3.5-5.1 N CHLORIDE (test code = CL) 90.0 mmol/L 98-107 L CARBON DIOXIDE (test code = CO2) 12.0 mmol/L 21-32 L ANION GAP (test code = GAP) 24.7 10-20 H GLUCOSE (test code = GLU) 303 mg/dL 74-106 H BLOOD UREA NITROGEN (test code = BUN) 16 mg/dL 7-18 N GLOMERULAR FILTRATION RATE (test code = GFR) > 60 mL/min >=60 Estimated GFR by using Modified MDRD formula.Chronic kidney disease is defined as either kidney damageor GFR <60 mL/min/1.73 m2 for >3 months. CREATININE (test code = CREAT) 1.00 mg/dL 0.7-1.3 N BUN/CREATININE RATIO (test code = BUN/CREA) 15.7 10-20 N CALCIUM (test code = CA) 7.8 mg/dL 8.5-10.1 L SPECIMEN COMMENTS: Q4H while on insulin [id number] 21:05:00* Test Item Value Reference Range Interpretation Comments GLUBED (test code = GLUBED) 299 mg/dL 74-106 H Performed by certified sonar subsystem equipment operator at [facility] [id number] 21:05:00* Test Item Value Reference Range Interpretation Comments GLUBED (test code = GLUBED) 354 mg/dL 74-106 H Performed by certified sonar subsystem equipment operator at [facility] - XR CHEST 1 [id number] 20:33:00 FAX: Kira Dodson MD [phone] [place]: St: ADM FAX: Karthik Rm MD [phone] Name: KEVIN LOMELI [facility] : 1995 Age/S: 23/M [address] [facility] Unit #: [id number] Loc: [place] [address] Phys: Karthik Rm MD Acct: [id number] Dis Date: Status: ADM IN PHONE #: [phone] Exam Date: 01/03/20192008 FAX #: [phone] Reason: cough EXAMS: CPT CODE: [id number] XR CHEST 1 V 85835 HISTORY: Cough. COMPARISON: None available. No acute infiltrates, effusion or congestion is noted. Bullous changes in the upper lobes. The cardiac and mediastinal silhouette are within normal limits. IMPRESSION: No acute infiltrates, effusion or congestion. at 2032 Reported and signed by: Stas Rae M.D. CC: Kira Combs MD; Clau Rm MD Technologist: FERDINAND CRANE(R) Trnscrd Date/Time/By: 01/03/2019 (2032) : By: [email or web address] Orig Print D/T: S: 01/03/2019 (2035) PAGE 1 Signed Report URINALYSIS COMPLETE 2019-01-03 18:40:00* Test Item Value Reference Range Interpretation Comments UA COLOR (test code = COLU) LIGHT YELLOW YELLOW UA APPEARANCE (test code = APPU) CLEAR CLEAR UA GLUCOSE DIPSTICK (test code = DGLUU) >=500 mg/dL NEGATIVE A UA BILIRUBIN DIPSTICK (test code = BILU) NEGATIVE mg/dL NEGATIVE UA KETONE DIPSTICK (test code = KETU) 80 mg/dL NEGATIVE A UA SPECIFIC GRAVITY (test code = SGU) 1.026 1.001-1.035 UA BLOOD DIPSTICK (test code = CR) Negative NEGATIVE UA PH DIPSTICK (test code = DAILY) 5.0 5.0-8.0 UA PROTEIN DIPSTICK (test code = PROU) 30 (1+) mg/dL NEGATIVE A UA UROBILINIOGEN DIPSTICK (test code = URO) NEGATIVE mg/dL NEGATIVE UA NITRITE DIPSTICK (test code = LEA) NEGATIVE NEGATIVE UA LEUKOCYTE ESTERASE W REFLEX (test code = LEUUR) NEGATIVE NEG ATIVE UA WBC (test code = WBCU) 0-5 #/HPF 0-5 UA RBC (test code = RBCU) 0-2 #/HPF 0-5 UA EPITHELIAL CELLS (test code = EPIU) None seen per HPF FEW UA BACTERIA (test code = BACU) FEW #/HPF NONE A UA HYALINE CAST (test code = HYALU) 6-10 #/LPF 0-5 A UA GRANULAR CAST (test code = GRANU) >20 #/LPF NONE A UA MUCUS (test code = MUCU) FEW #/LPF FEW Urine Source? Clean CatchBASIC METABOLIC [id number] 17:51:00* Test Item Value Reference Range Interpretation Comments SODIUM (test code = NA) 120 mmol/L 136-145 LL Resu lts called to [id number] by V.LAB.KP1 01/03/19 1751Critical results verified and read back by Nurse? Y POTASSIUM (test code = K) 3.3 mmol/L 3.5-5.1 L CHLORIDE (test code = CL) 82.0 mmol/L 98-107 L CARBON DIOXIDE (test code = CO2) 12.0 mmol/L 21-32 L ANION GAP (test code = GAP) 29.3 10-20 H GLUCOSE (test code = GLU) 378 mg/dL 74-106 H BLOOD UREA NITROGEN (test code = BUN) 17 mg/dL 7-18 N GLOMERULAR FILTRATION RATE (test code = GFR) > 60 mL/min >=60 Estimated GFR by using Modified MDRD formula.Chronic kidney disease is defined as either kidney damageor GFR <60 mL/min/1.73 m2 for >3 months. CREATININE (test code = CREAT) 1.20 mg/dL 0.7-1.3 N BUN/CREATININE RATIO (test code = BUN/CREA) 14.3 10-20 N CALCIUM (test code = CA) 9.1 mg/dL 8.5-10.1 N HEPATIC FUNCTION [id number] 17:51:00* Test Item Value Reference Range Interpretation Comments TOTAL PROTEIN (test code = PROT) 9.1 gram/dL 6.4-8.2 H ALBUMIN (test code = ALB) 4.8 g/dL 3.4-5.0 N GLOBULIN (test code = GLOB) 4.3 gram/dL 2.7-4.2 H ALBUMIN/GLOBULIN RATIO (test code = A/G) 1.1 0.75-1.50 N BILIRUBIN TOTAL (test code = BILT) 2.00 mg/dL 0.0-1.0 H BILIRUBIN DIRECT (test code = BILD) 0.55 mg/dL 0.0-0.20 H SGOT/AST (test code = AST) 14 IUnit/L 15-37 L SGPT/ALT (test code = ALT) 15 IUnit/L 12-78 N ALKALINE PHOSPHATASE TOTAL (test code = ALKP) 126 IUnit/L 45-117 H Note change in reference range due to change in reagent. [id number] 17:51:00* Test Item Value Reference Range Interpretation Comments LIPASE (test code = LIP) 36 U/L 73.0-393.0 L [id number] 17:46:00* Test Item Value Reference Range Interpretation Comments TROPONIN-I (test code = TROPI) <0.015 ng/mL 0-0.045 N [id number] 17:20:00* Test Item Value Reference Range Interpretation Comments GLUBED (test code = GLUBED) 373 mg/dL 74-106 H Performed by certified sonar subsystem equipment operator at [facility] CBC W/O [id number] 17:04:00* Test Item Value Reference Range Interpretation Comments WHITE BLOOD CELL (test code = WBC) 13.0 K/mm3 4.5-12.5 H RED BLOOD CELL (test code = RBC) 5.78 mill/mm3 4.0-5.8 N HEMOGLOBIN (test code = HGB) 17.9 gram/dL 13.0-17.5 H HEMATOCRIT (test code = HCT) 48.9 % 42.0-52.0 N MEAN CELL VOLUME (test code = MCV) 84.6 fL 80-98 N MEAN CELL HGB (test code = MCH) 31.0 picogram 27.0-33.0 N MEAN CELL HGB CONCETRATION (test code = MCHC) 36.6 gram/dL 33.0-36. 0 H RED CELL DISTRIBUTION WIDTH (test code = RDW) 11.9 % 11.6-16. 2 N PLATELET COUNT (test code = PLT) 314 K/mm3 150-450 N MEAN PLATELET VOLUME (test code = MPV) 9.4 fL 6.7-11.0 N Hemoglobin A1c [id number] 06:18:00* Test Item Value Reference Range Interpretation Comments Hemoglobin A1c Percent (test code = Hemoglobin A1c Percent) 9.6 4.0-7.0 H [facility] A1c [id number] 06:18:00 * Test Item Value Reference Range Interpretation Comments Hemoglobin A1c Percent (test code = Hemoglobin A1c Percent) 9.6 4.0-7.0 H [facility] HospitalH[facility]oglobin A1c [id number] 06:18:00 * Test Item Value Reference Range Interpretation Comments Hemoglobin A1c Percent (test code = Hemoglobin A1c Percent) 9.6 4.0-7.0 H [facility] HospitalCreatine Kinase [id number] 23:03:00* Test Item Value Reference Range Interpretation Comments Creatine Kinase MB (test code = 80145-7) 1.50 0-5.0 [facility] HospitalTroponin [id number] 23:03:00* Test Item Value Reference Range Interpretation Comments Troponin I (test code = DKD1748) < 0.001 0-0.300 [facility] HospitalCreatine Kinase [id number] 23:03:00* Test Item Value Reference Range Interpretation Comments Creatine Kinase MB (test code = 98213-7) 1.50 0-5.0 [facility] HospitalTroponin [id number] 23:03:00* Test Item Value Reference Range Interpretation Comments Troponin I (test code = STV7459) < 0.001 0-0.300 [facility] HospitalCreatine [id number] 23:00:00* Test Item Value Reference Range Interpretation Comments Creatine Kinase (test code = 2157-6) 394 30-200 H [facility] HospitalCreatine [id number] 23:00:00* Test Item Value Reference Range Interpretation Comments Creatine Kinase (test code = 2157-6) 394 30-200 H [facility] HospitalCHES SINGLE (PORTABLE)2018-09-09 22:50:00 [place] [address] Patient Name: KEVIN LOMELI MR #: [id number] : 1995 Age/Sex: 23/M Req #: [id number] Adm Physician: Ordered by: SAMUEL ARIAS MD Report #: [id number] Location: ER Room/Bed: Procedure: 1030-00 80 DX/CHEST SINGLE (PORTABLE) Exam Date: Exam Time: REPORT STATUS: Signed EXAM: CH EST SINGLE (PORTABLE), AP 1 view INDICATION: Dehydration, shortness of breath COMPARISON: AP view of the chest January 26, 2018 FINDINGS: LINES/TUBES: None LUNGS: No consolidations or edema. PLEURA: No effusions or pneum othorax. HEART AND MEDIASTINUM: Normal size and contour. BONES AND SOF T TISSUES: No acute findings. IMPRESSION: No acute thoracic abnormality. Signed by: Dr. Deshaun Castillo M.D. on 09/09/2018 10:57 PM Dictated By: DESHAUN CASTILLO MD 55 COPY TO: SAMUEL VIEIRA MD Bedside Rjfffsm8910-80-00 12:26:00* Test Item Value Reference Range Interpretation Comments Bedside Glucose (test code = 15743-7) 170 70-120 H Meter ID: [id number] Texas Spine & Surgical Hospitalodium Level 2018-07-26 05:06:00* Test Item Value Reference Range Interpretation Comments Sodium Level (test code = 2951-2) 137 136-145 [facility] HospitalPotassium Ecyvy4249-13-26 05:06:00* Test Item Value Reference Range Interpretation Comments Potassium Level (test code = 2823-3) 3.2 3.5-5.1 L [facility] HospitalChloride Jauco9574-27-03 05:06:00* Test Item Value Reference Range Interpretation Comments Chloride Level (test code = 2075-0) 97 98-107 L [facility] HospitalCarbon Dioxide [id number] 05:06:00* Test Item Value Reference Range Interpretation Comments Carbon Dioxide Level (test code = 2028-9) 28 22-29 [facility] HospitalAnion [id number] 05:06:00* Test Item Value Reference Range Interpretation Comments Anion Gap (test code = 29634-4) 15.2 8-16 [facility] HospitalBlood Urea Ajsnufhd1800-16-65 05:06:00* Test Item Value Reference Range Interpretation Comments Blood Urea Nitrogen (test code = 3094-0) 8 7-26 [facility] HospitalCreatinine2018-09-15 05:06:00* Test Item Value Reference Range Interpretation Comments Creatinine (test code = 2160-0) 0.66 0.72-1.25 L [facility] HospitalBUN/Creatinine Lqlnq0433-73-04 05:06:00* Test Item Value Reference Range Interpretation Comments BUN/Creatinine Ratio (test code = 3097-3) 12 6-25 [facility] HospitalEstimat Glomerular Filtration Rate 2018-07-26 05:06:00* Test Item Value Reference Range Interpretation Comments Estimat Glomerular Filtration Rate (test code = 301826002) 60- >60 Ranges were taken from the National Kidney Disease Education Program and the [facility] Kid[employer] Foundation literature.Reference ranges:60 or greater: Rjhoiz50-27 ( for 3 consecutive months): Chronic kidney disease 15 or less: Kidney failureUvalde Memorial HospitalGlucose Qxumn1404-95-13 05:06:00* Test Item Value Reference Range Interpretation Comments Glucose Level (test code = ANC0784) 197 74-118 H [facility] HospitalCalcium Gubhm3443-52-88 05:06:00* Test Item Value Reference Range Interpretation Comments Calcium Level (test code = 08520-1) 8.5 8.4-10.2 [facility] HospitalWhite Blood Rxmmz5865-82-77 04:49:00* Test Item Value Reference Range Interpretation Comments White Blood Count (test code = 6690-2) 6.78 4.8-10.8 [facility] HospitalRed Blood Qaqep5382-04-38 04:49:00* Test Item Value Reference Range Interpretation Comments Red Blood Count (test code = 789-8) 4.74 4.3-5.7 [facility] HospitalHemoglobin2018-09-15 04:49:00* Test Item Value Reference Range Interpretation Comments Hemoglobin (test code = 62409-0) 14.7 14.0-18.0 [facility] HospitalHematocrit2018-09-15 04:49:00* Test Item Value Reference Range Interpretation Comments Hematocrit (test code = 4544-3) 39.8 38.2-49.6 [facility] HospitalMean Corpuscular Oedqet5702-81-27 04:49:00* Test Item Value Reference Range Interpretation Comments Mean Corpuscular Volume (test code = 787-2) 84.0 81-99 [facility] HospitalMean Corpuscular Pwgxdzwbyj6860-04-25 04:49:00* Test Item Value Reference Range Interpretation Comments Mean Corpuscular Hemoglobin (test code = 785-6) 31.0 28-32 [facility] HospitalMean Corpuscular Hemoglobin Concent 2018-07-26 04:49:00* Test Item Value Reference Range Interpretation Comments Mean Corpuscular Hemoglobin Concent (test code = 786-4) 36.9 31-35 H [facility] HospitalRed Cell Distribution Mrkwm2564-54-62 04:49:00* Test Item Value Reference Range Interpretation Comments Red Cell Distribution Width (test code = 50991-9) 11.7 11.7 -14.4 [facility] HospitalPlatelet Phzon3802-42-68 04:49:00* Test Item Value Reference Range Interpretation Comments Platelet Count (test code = 777-3) 204 140-360 [facility] (%) (Auto)2018-07-26 04:49:00 * Test Item Value Reference Range Interpretation Comments Neutrophils (%) (Auto) (test code = 03143-8) 65.3 38.7-80.0 [facility] HospitalLymph[facility] (%) (Auto)2018-07-26 04:49:00 * Test Item Value Reference Range Interpretation Comments Lymphocytes (%) (Auto) (test code = 736-9) 26.0 18.0-39.1 [facility] (%) (Auto)2018-07-26 04:49:00* Test Item Value Reference Range Interpretation Comments Monocytes (%) (Auto) (test code = 5905-5) 8.4 4.4-11.3 [facility] HospitalEosinophils (%) (Auto)2018-07-26 04:49:00 * Test Item Value Reference Range Interpretation Comments Eosinophils (%) (Auto) (test code = 713-8) 0.1 0.0-6.0 [facility] HospitalBasophils (%) (Auto)2018-07-26 04:49:00* Test Item Value Reference Range Interpretation Comments Basophils (%) (Auto) (test code = 706-2) 0.1 0.0-1.0 [facility] HospitalIM GRANULOCYTES %2018-07-26 04:49:00* Test Item Value Reference Range Interpretation Comments IM GRANULOCYTES % (test code = IM GRANULOCYTES %) 0.1 0.0- 1.0 [facility] HospitalNeutrophils # (Auto)2018-07-26 04:49:00* Test Item Value Reference Range Interpretation Comments Neutrophils # (Auto) (test code = 751-8) 4.4 2.1-6.9 [facility] HospitalLymphocytes # (Auto)2018-07-26 04:49:00* Test Item Value Reference Range Interpretation Comments Lymphocytes # (Auto) (test code = 77928-3) 1.8 1.0-3.2 [facility] HospitalMonocytes # (Auto)2018-07-26 04:49:00* Test Item Value Reference Range Interpretation Comments Monocytes # (Auto) (test code = 742-7) 0.6 0.2-0.8 [facility] HospitalEosinophils # (Auto)2018-07-26 04:49:00* Test Item Value Reference Range Interpretation Comments Eosinophils # (Auto) (test code = 711-2) 0.0 0.0-0.4 [facility] HospitalBasophils # (Auto)2018-07-26 04:49:00* Test Item Value Reference Range Interpretation Comments Basophils # (Auto) (test code = 704-7) 0.0 0.0-0.1 [facility] HospitalAbsolute Immature Granulocyte (auto 2018-07-26 04:49:00* Test Item Value Reference Range Interpretation Comments Absolute Immature Granulocyte (auto (navya t code = Absolute Immature Granulocyte (auto) 0.01 0-0.1 [facility] HospitalMagnesium Cifko7488-63-57 19:07:00* Test Item Value Reference Range Interpretation Comments Magnesium Level (test code = 85159-3) 1.8 1.3-2.1 [facility] HospitalHemoglobin A1c Kgzvmzh1093-52-63 07:45:00 * Test Item Value Reference Range Interpretation Comments Hemoglobin A1c Percent (test code = Hemoglobin A1c Percent) 9.8 4.0-7.0 H [facility] HospitalThyroid Stimulating Hormone (TSH) 2018-07-24 07:43:00* Test Item Value Reference Range Interpretation Comments Thyroid Stimulating Hormone (TSH) (test code = 28852-0) 0.512 0.350-4.940 [facility] HospitalThyroid Stimulating Hormone (TSH) 2018-07-24 07:43:00* Test Item Value Reference Range Interpretation Comments Thyroid Stimulating Hormone (TSH) (test code = 17261-1) 0.512 0.350-4.940 [facility] HospitalThyroid Stimulating Hormone (TSH) 2018-07-24 07:43:00* Test Item Value Reference Range Interpretation Comments Thyroid Stimulating Hormone (TSH) (test code = 50712-5) 0.512 0.350-4.940 [facility] HospitalTriglycerides Qcdyq0175-75-50 07:23:00* Test Item Value Reference Range Interpretation Comments Triglycerides Level (test code = 2571-8) 120 0-149 [facility] HospitalCholesterol Xnwbb1454-24-65 07:23:00* Test Item Value Reference Range Interpretation Comments Cholesterol Level (test code = 2093-3) 181 0-199 Less than 200 mg/dL Low Ijsr944 - 239 mg/dL Borderline Wctr014 m g/dl and greater High Risk [facility] HospitalLDL Govwgyocndg2091-29-95 07:23:00* Test Item Value Reference Range Interpretation Comments LDL Cholesterol (test code = 2089-1) 93 60-130 [facility] HospitalHDL Omchplgguzx5704-95-98 07:23:00* Test Item Value Reference Range Interpretation Comments HDL Cholesterol (test code = 2085-9) 64 40-60 H [facility] HospitalCholesterol/HDL Aygcs2283-36-36 07:23:00 * Test Item Value Reference Range Interpretation Comments Cholesterol/HDL Ratio (test code = 9830-1) 2.8 3.9-4.7 L [facility] HospitalTriglycerides Kbizo3405-44-74 07:23:00* Test Item Value Reference Range Interpretation Comments Triglycerides Level (test code = 2571-8) 120 0-149 [facility] HospitalCholesterol Njdjn0119-31-30 07:23:00* Test Item Value Reference Range Interpretation Comments Cholesterol Level (test code = 2093-3) 181 0-199 Less than 200 mg/dL Low Lvyo909 - 239 mg/dL Borderline Tcjk342 m g/dl and greater High Risk [facility] HospitalLDL Dukhpjgborf0863-85-23 07:23:00* Test Item Value Reference Range Interpretation Comments LDL Cholesterol (test code = 2089-1) 93 60-130 [facility] Tnxkyixngkr7449-60-23 07:23:00* Test Item Value Reference Range Interpretation Comments HDL Cholesterol (test code = 2085-9) 64 40-60 H [facility] HospitalCholesterol/HDL Ngsqu2857-19-59 07:23:00 * Test Item Value Reference Range Interpretation Comments Cholesterol/HDL Ratio (test code = 9830-1) 2.8 3.9-4.7 L [facility] HospitalTriglycerides Iczld2017-98-58 07:23:00* Test Item Value Reference Range Interpretation Comments Triglycerides Level (test code = 2571-8) 120 0-149 [facility] HospitalCholesterol Madlu8939-78-86 07:23:00* Test Item Value Reference Range Interpretation Comments Cholesterol Level (test code = 2093-3) 181 0-199 Less than 200 mg/dL Low Qgwa276 - 239 mg/dL Borderline Qenx080 m g/dl and greater High Risk [facility] HospitalLDL Gcdeyxbakrg6157-75-28 07:23:00* Test Item Value Reference Range Interpretation Comments LDL Cholesterol (test code = 2089-1) 93 60-130 [facility] Orovnwpkovk6582-39-73 07:23:00* Test Item Value Reference Range Interpretation Comments HDL Cholesterol (test code = 2085-9) 64 40-60 H [facility] HospitalCholesterol/HDL Xrxub5265-29-51 07:23:00 * Test Item Value Reference Range Interpretation Comments Cholesterol/HDL Ratio (test code = 9830-1) 2.8 3.9-4.7 L [facility] HospitalTriglycerides Vfeiq2696-62-69 07:23:00* Test Item Value Reference Range Interpretation Comments Triglycerides Level (test code = 2571-8) 120 0-149 [facility] HospitalCholesterol Wgrjk8804-32-56 07:23:00* Test Item Value Reference Range Interpretation Comments Cholesterol Level (test code = 2093-3) 181 0-199 Less than 200 mg/dL Low Ahqb147 - 239 mg/dL Borderline Vcjd139 m g/dl and greater High Risk [facility] HospitalLDL Jxshanozxxx3122-61-81 07:23:00* Test Item Value Reference Range Interpretation Comments LDL Cholesterol (test code = 2089-1) 93 60-130 [facility] HospitalHDL Kxqanojqqwv8657-61-39 07:23:00* Test Item Value Reference Range Interpretation Comments HDL Cholesterol (test code = 2085-9) 64 40-60 H [facility] HospitalCholesterol/HDL Sscfu8250-81-42 07:23:00 * Test Item Value Reference Range Interpretation Comments Cholesterol/HDL Ratio (test code = 9830-1) 2.8 3.9-4.7 L [facility] HospitalUrine LWR3340-28-60 20:17:00* Test Item Value Reference Range Interpretation Comments Urine WBC (test code = 5821-4) 0-5 0-5 [facility] HospitalUrine YPY9822-14-49 20:17:00* Test Item Value Reference Range Interpretation Comments Urine RBC (test code = 95865-8) NONE 0-5 [facility] HospitalUrine Pqkxyneh6594-61-56 20:17:00* Test Item Value Reference Range Interpretation Comments Urine Bacteria (test code = 77305-3) FEW NONE [facility] HospitalUrine Epithelial Yavnj3536-88-92 20:17:00 * Test Item Value Reference Range Interpretation Comments Urine Epithelial Cells (test code = 81436-3) FEW NONE [facility] HospitalUrine Coarse Granular Uqewn3437-02-11 20:17:00* Test Item Value Reference Range Interpretation Comments Urine Coarse Granular Casts (test code = 74751-2) 1-5 >0 H [facility] HospitalUrine Coarse Granular Xpdlk9150-61-74 20:17:00* Test Item Value Reference Range Interpretation Comments Urine Coarse Granular Casts (test code = 63784-0) 1-5 >0 H [facility] HospitalUrine Coarse Granular Zwbtr0881-48-29 20:17:00* Test Item Value Reference Range Interpretation Comments Urine Coarse Granular Casts (test code = 15292-9) 1-5 >0 H [facility] HospitalUrine Pnqnh3454-00-66 20:11:00* Test Item Value Reference Range Interpretation Comments Urine Color (test code = 5778-6) YELLOW YELLOW [facility] HospitalUrine Yimpjxg6530-36-11 20:11:00* Test Item Value Reference Range Interpretation Comments Urine Clarity (test code = 11116-8) CLEAR CLEAR [facility] HospitalUrine Specific Qqgcbnl5791-60-20 20:11:00 * Test Item Value Reference Range Interpretation Comments Urine Specific [place] (test code = 5811-5) 1.030 1.010-1.02 5 H [facility] HospitalUrine zM7002-63-71 20:11:00* Test Item Value Reference Range Interpretation Comments Urine pH (test code = 35838-5) 5 5-7 [facility] HospitalU[facility] Leukocyte Rvcxrwma5228-66-19 20:11:00* Test Item Value Reference Range Interpretation Comments Urine Leukocyte Esterase (test code = 5799-2) NEGATIVE NEGATIVE [facility] HospitalUrine Rrjumif3561-49-74 20:11:00* Test Item Value Reference Range Interpretation Comments Urine Nitrite (test code = 06747-6) NEGATIVE NEGATIVE [facility] HospitalUrine Rvckvki6795-79-11 20:11:00* Test Item Value Reference Range Interpretation Comments Urine Protein (test code = 5804-0) TRACE NEGATIVE H [facility] HospitalUrine Glucose (UA)2018-07-23 20:11:00* Test Item Value Reference Range Interpretation Comments Urine Glucose (UA) (test code = 2349-9) 2+ NEGATIVE H [facility] HospitalUrine Lwillkh2160-72-88 20:11:00* Test Item Value Reference Range Interpretation Comments Urine Ketones (test code = 18134-9) 2+ NEGATIVE H [facility] Opiates Bjsebr7415-18-40 20:11:00* Test Item Value Reference Range Interpretation Comments Urine Opiates Screen (test code = 73939-7) POSITIVE NEGATIVE H This test provides only a screen. Positive results should be repeated by a confi rmatory test.[facility] HospitalUrine Barbiturates Screen 2018-07-23 20:11:00* Test Item Value Reference Range Interpretation Comments Urine Barbiturates Screen (test code = 397495075) NEGATIVE NEGA TIVE [facility] Phencyclidine Jwblqi7316-56-02 20:11:00* Test Item Value Reference Range Interpretation Comments Urine Phencyclidine Screen (test code = 36519-3) NEGATIVE NEGAT JESSIKA [facility] Amphetamines Ilfgfs3500-10-08 20:11:00* Test Item Value Reference Range Interpretation Comments Urine Amphetamines Screen (test code = 37600-5) NEGATIVE NEGATI VE [facility] Methamphetamines Pslvcz9715-51-59 20:11:00* Test Item Value Reference Range Interpretation Comments Urine Methamphetamines Screen (test code = Urine Metha mphetamines Screen) NEGATIVE NEGATIVE [facility] HospitalU[facility] Benzodiazepines Jyxbtl1944-73-51 20:11:00* Test Item Value Reference Range Interpretation Comments Urine Benzodiazepines Screen (test code = 88836-7) NEGATIVE NEG ATIVE [facility] HospitalUrine Cocaine Ychuqe1284-37-80 20:11:00* Test Item Value Reference Range Interpretation Comments Urine Cocaine Screen (test code = 3398-5) NEGATIVE NEGATIVE [facility] HospitalU[facility] Cannabinoids Bwdaaq7695-42-44 20:11:00* Test Item Value Reference Range Interpretation Comments Urine Cannabinoids Screen (test code = 92532-2) POSITIVE NEGATI VE H This test provides only a screen. Positive results should be repeated by a confi rmatory test.[facility] HospitalUrine Vvnkaykyvilq7707-12-91 20:11:00* Test Item Value Reference Range Interpretation Comments Urine Urobilinogen (test code = 42149-6) 0.2 0.2-1 [facility] HospitalU[facility] Kegikjtcp3846-84-47 20:11:00* Test Item Value Reference Range Interpretation Comments Urine Bilirubin (test code = 1978-6) NEGATIVE NEGATIVE [facility] HospitalUrine Yacbm1948-67-68 20:11:00* Test Item Value Reference Range Interpretation Comments Urine Blood (test code = 46880-8) TRACE NEGATIVE H [facility] HospitalUrine Opiates Kriykl5010-50-07 20:11:00* Test Item Value Reference Range Interpretation Comments Urine Opiates Screen (test code = 40567-2) POSITIVE NEGATIVE H This test provides only a screen. Positive results should be repeated by a confi rmatory test.[facility] HospitalUrine Barbiturates Screen 2018-07-23 20:11:00* Test Item Value Reference Range Interpretation Comments Urine Barbiturates Screen (test code = 986225465) NEGATIVE NEGA TIVE [facility] HospitalU[facility] Phencyclidine Tbtjty5476-82-94 20:11:00* Test Item Value Reference Range Interpretation Comments Urine Phencyclidine Screen (test code = 50521-8) NEGATIVE NEGAT JESSIKA [facility] HospitalU[facility] Amphetamines Pkzrnw4068-05-43 20:11:00* Test Item Value Reference Range Interpretation Comments Urine Amphetamines Screen (test code = 95111-9) NEGATIVE NEGATI VE [facility] HospitalU[facility] Methamphetamines Wrlykp7897-41-64 20:11:00* Test Item Value Reference Range Interpretation Comments Urine Methamphetamines Screen (test code = Urine Metha mphetamines Screen) NEGATIVE NEGATIVE [facility] HospitalU[facility] Benzodiazepines Jtmynq6917-37-43 20:11:00* Test Item Value Reference Range Interpretation Comments Urine Benzodiazepines Screen (test code = 30826-5) NEGATIVE NEG ATIVE [facility] HospitalU[facility] Cocaine Nwnusr5739-83-74 20:11:00* Test Item Value Reference Range Interpretation Comments Urine Cocaine Screen (test code = 3398-5) NEGATIVE NEGATIVE [facility] HospitalU[facility] Cannabinoids Ubfszm2292-40-34 20:11:00* Test Item Value Reference Range Interpretation Comments Urine Cannabinoids Screen (test code = 43318-1) POSITIVE NEGATI VE H This test provides only a screen. Positive results should be repeated by a confi rmatory test.[facility] HospitalDifferential Total Cells Jznvytu5021-08-95 19:22:00* Test Item Value Reference Range Interpretation Comments Differential Total Cells Counted (test code = Differen tial Total Cells Counted) 100 [facility] HospitalNeutrophils % (Manual)2018-07-23 19:22:00 * Test Item Value Reference Range Interpretation Comments Neutrophils % (Manual) (test code = 50051-6) 79 40-74 H [facility] HospitalLymphocytes % (Manual)2018-07-23 19:22:00 * Test Item Value Reference Range Interpretation Comments Lymphocytes % (Manual) (test code = 737-7) 11 19-48 L [facility] HospitalMonocytes % (Manual)2018-07-23 19:22:00* Test Item Value Reference Range Interpretation Comments Monocytes % (Manual) (test code = 744-3) 10 3.4-9.0 H [facility] HospitalPlatelet Ulppzhbc9022-69-17 19:22:00* Test Item Value Reference Range Interpretation Comments Platelet Estimate (test code = 65036-0) ADEQUATE [facility] HospitalPlatelet Morphology Iqvdgbh2303-16-28 19:22:00* Test Item Value Reference Range Interpretation Comments Platelet Morphology Comment (test code = 51597-9) NORMAL [facility] HospitalRed Cell Morphology Hatgovr4458-00-96 19:22:00* Test Item Value Reference Range Interpretation Comments Red Cell Morphology Comment (test code = 6742-1) NORMAL [facility] HospitalDifferential Total Cells Counted 2018-07-23 19:22:00* Test Item Value Reference Range Interpretation Comments Differential Total Cells Counted (test code = Differen tial Total Cells Counted) 100 [facility] HospitalNeutrophils % (Manual)2018-07-23 19:22:00 * Test Item Value Reference Range Interpretation Comments Neutrophils % (Manual) (test code = 87627-0) 79 40-74 H [facility] HospitalLymphocytes % (Manual)2018-07-23 19:22:00 * Test Item Value Reference Range Interpretation Comments Lymphocytes % (Manual) (test code = 737-7) 11 19-48 [facility] CenterMon[facility] % (Manual)2018-07-23 19:22:00* Test Item Value Reference Range Interpretation Comments Monocytes % (Manual) (test code = 744-3) 10 3.4-9.0 H [facility] HospitalPlatelet Iswxmbxz8231-49-70 19:22:00* Test Item Value Reference Range Interpretation Comments Platelet Estimate (test code = 02258-3) ADEQUATE [facility] HospitalPlatelet Morphology Oboyngf9386-21-33 19:22:00* Test Item Value Reference Range Interpretation Comments Platelet Morphology Comment (test code = 43479-2) NORMAL [facility] HospitalRed Cell Morphology Hhrizme0160-56-77 19:22:00* Test Item Value Reference Range Interpretation Comments Red Cell Morphology Comment (test code = 6742-1) NORMAL [facility] HospitalDifferential Total Cells Counted 2018-07-23 19:22:00* Test Item Value Reference Range Interpretation Comments Differential Total Cells Counted (test code = Dilip valdivial Total Cells Counted) 100 [facility] HospitalNeutrophils % (Manual)2018-07-23 19:22:00 * Test Item Value Reference Range Interpretation Comments Neutrophils % (Manual) (test code = 79207-7) 79 40-74 H [facility] HospitalLymphocytes % (Manual)2018-07-23 19:22:00 * Test Item Value Reference Range Interpretation Comments Lymphocytes % (Manual) (test code = 737-7) 11 19-48 L [facility] HospitalMonocytes % (Manual)2018-07-23 19:22:00* Test Item Value Reference Range Interpretation Comments Monocytes % (Manual) (test code = 744-3) 10 3.4-9.0 H [facility] HospitalPlatelet Vcfwmktb0948-39-59 19:22:00* Test Item Value Reference Range Interpretation Comments Platelet Estimate (test code = 60538-5) ADEQUATE [facility] HospitalPlatelet Morphology Rrnqoqu1503-39-64 19:22:00* Test Item Value Reference Range Interpretation Comments Platelet Morphology Comment (test code = 99643-0) NORMAL [facility] HospitalRed Cell Morphology Ekkqboy4116-05-65 19:22:00* Test Item Value Reference Range Interpretation Comments Red Cell Morphology Comment (test code = 6742-1) NORMAL [facility] HospitalDifferential Total Cells Counted 2018-07-23 19:22:00* Test Item Value Reference Range Interpretation Comments Differential Total Cells Counted (test code = Differyue tial Total Cells Counted) 100 [facility] HospitalNeutrophils % (Manual)2018-07-23 19:22:00 * Test Item Value Reference Range Interpretation Comments Neutrophils % (Manual) (test code = 02826-7) 79 40-74 H [facility] HospitalLymphocytes % (Manual)2018-07-23 19:22:00 * Test Item Value Reference Range Interpretation Comments Lymphocytes % (Manual) (test code = 737-7) 11 19-48 L [facility] HospitalMonocytes % (Manual)2018-07-23 19:22:00* Test Item Value Reference Range Interpretation Comments Monocytes % (Manual) (test code = 744-3) 10 3.4-9.0 H [facility] HospitalPlatelet Zcebfoca4341-07-21 19:22:00* Test Item Value Reference Range Interpretation Comments Platelet Estimate (test code = 97492-5) ADEQUATE [facility] HospitalPlatelet Morphology Qdcaijo6854-50-36 19:22:00* Test Item Value Reference Range Interpretation Comments Platelet Morphology Comment (test code = 91750-2) NORMAL [facility] HospitalRed Cell Morphology Gfroybk5595-81-85 19:22:00* Test Item Value Reference Range Interpretation Comments Red Cell Morphology Comment (test code = 6742-1) NORMAL [facility] HospitalBedside Hhgthae9616-47-11 08:31:00* Test Item Value Reference Range Interpretation Comments Bedside Glucose (test code = 32179-9) 382 70-120 H Meter ID: [id number] [facility] Hospitalodium Level 2018-05-19 06:01:00* Test Item Value Reference Range Interpretation Comments Sodium Level (test code = 2951-2) 135 136-145 L [facility] HospitalPotassium Nxhdi9338-28-25 06:01:00* Test Item Value Reference Range Interpretation Comments Potassium Level (test code = 2823-3) 3.3 3.5-5.1 L [facility] HospitalChloride Lzixf6446-39-34 06:01:00* Test Item Value Reference Range Interpretation Comments Chloride Level (test code = 2075-0) 96 98-107 L [facility] HospitalCarbon Dioxide Fnhxa8929-63-44 06:01:00* Test Item Value Reference Range Interpretation Comments Carbon Dioxide Level (test code = 2028-9) 29 22-29 [facility] HospitalAnion Woq9228-71-62 06:01:00* Test Item Value Reference Range Interpretation Comments Anion Gap (test code = 07240-7) 13.3 8-16 [facility] HospitalBlood Urea Kmobirii8200-62-98 06:01:00* Test Item Value Reference Range Interpretation Comments Blood Urea Nitrogen (test code = 3094-0) 7 7-26 [facility] HospitalCreatinine2018-07-09 06:01:00* Test Item Value Reference Range Interpretation Comments Creatinine (test code = 2160-0) 0.61 0.72-1.25 L [facility] HospitalBUN/Creatinine Hsrpu8520-78-38 06:01:00* Test Item Value Reference Range Interpretation Comments BUN/Creatinine Ratio (test code = 3097-3) 11 6-25 [facility] HospitalEstimat Glomerular Filtration Rate 2018-05-19 06:01:00* Test Item Value Reference Range Interpretation Comments Estimat Glomerular Filtration Rate (test code = 27878-9) 60- >60 Ranges were taken from the National Kidney Disease Education Program and the [facility] [employer] literature.Reference ranges:60 or greater: Kppahd31-58 ( for 3 consecutive months): Chronic kidney disease 15 or less: Kidney failureUvalde Memorial HospitalGlucose Oziah2401-82-63 06:01:00* Test Item Value Reference Range Interpretation Comments Glucose Level (test code = EXL5127) 204 74-118 H [facility] HospitalCalcium Qsumu1751-45-58 06:01:00* Test Item Value Reference Range Interpretation Comments Calcium Level (test code = 31489-6) 8.5 8.4-10.2 [facility] HospitalTotal Lhvhzhnik4445-17-15 06:01:00* Test Item Value Reference Range Interpretation Comments Total Bilirubin (test code = 1975-2) 1.7 0.2-1.2 H [facility] HospitalAspartate Amino Transf (AST/SGOT) 2018-05-19 06:01:00* Test Item Value Reference Range Interpretation Comments Aspartate Amino Transf (AST/SGOT) (test code = Aspartate Amino Transf (AST/SGOT)) 9 5-34 [facility] HospitalAlanine Aminotransferase (ALT/SGPT) 2018-05-19 06:01:00* Test Item Value Reference Range Interpretation Comments Alanine Aminotransferase (ALT/SGPT) (test code = 1742-6) 7 0-55 [facility] HospitalTotal Uzkpuwe9390-91-63 06:01:00* Test Item Value Reference Range Interpretation Comments Total Protein (test code = 2885-2) 5.9 6.5-8.1 L [facility] HospitalAlbumin2018-07-09 06:01:00* Test Item Value Reference Range Interpretation Comments Albumin (test code = 1751-7) 3.4 3.5-5.0 L [facility] HospitalGlobulin2018-07-09 06:01:00* Test Item Value Reference Range Interpretation Comments Globulin (test code = 89028-1) 2.5 2.3-3.5 [facility] HospitalAlbumin/Globulin Iziyb4066-24-48 06:01:00 * Test Item Value Reference Range Interpretation Comments Albumin/Globulin Ratio (test code = 1759-0) 1.4 0.8-2.0 [facility] HospitalAlkaline Bewnfrzbgzi2909-66-91 06:01:00* Test Item Value Reference Range Interpretation Comments Alkaline Phosphatase (test code = 6768-6) 69 40-150 [facility] HospitalTotal Spwzuutmc4542-21-49 06:01:00* Test Item Value Reference Range Interpretation Comments Total Bilirubin (test code = 1975-2) 1.7 0.2-1.2 H [facility] HospitalAspartate Amino Transf (AST/SGOT) 2018-05-19 06:01:00* Test Item Value Reference Range Interpretation Comments Aspartate Amino Transf (AST/SGOT) (test code = Aspartate Amino Transf (AST/SGOT)) 9 5-34 [facility] HospitalAlanine Aminotransferase (ALT/SGPT) 2018-05-19 06:01:00* Test Item Value Reference Range Interpretation Comments Alanine Aminotransferase (ALT/SGPT) (test code = 1742-6) 7 0-55 [facility] HospitalTotal Uodekek8224-33-41 06:01:00* Test Item Value Reference Range Interpretation Comments Total Protein (test code = 2885-2) 5.9 6.5-8.1 L [facility] HospitalAlbumin2018-07-09 06:01:00* Test Item Value Reference Range Interpretation Comments Albumin (test code = 1751-7) 3.4 3.5-5.0 L [facility] HospitalGlobulin2018-07-09 06:01:00* Test Item Value Reference Range Interpretation Comments Globulin (test code = 51778-4) 2.5 2.3-3.5 [facility] HospitalAlbumin/Globulin Cfswg5611-03-35 06:01:00 * Test Item Value Reference Range Interpretation Comments Albumin/Globulin Ratio (test code = 1759-0) 1.4 0.8-2.0 [facility] HospitalAlkaline Fqqvdhinyzv4012-20-67 06:01:00* Test Item Value Reference Range Interpretation Comments Alkaline Phosphatase (test code = 6768-6) 69 40-150 [facility] HospitalWhite Blood Bhyzb1822-14-16 05:14:00* Test Item Value Reference Range Interpretation Comments White Blood Count (test code = 6690-2) 5.49 4.8-10.8 [facility] HospitalRed Blood Rcmda9916-61-28 05:14:00* Test Item Value Reference Range Interpretation Comments Red Blood Count (test code = 789-8) 4.19 4.3-5.7 L [facility] HospitalHemoglobin2018-07-09 05:14:00* Test Item Value Reference Range Interpretation Comments Hemoglobin (test code = 78495-5) 13.1 14.0-18.0 L [facility] HospitalHematocrit2018-07-09 05:14:00* Test Item Value Reference Range Interpretation Comments Hematocrit (test code = 4544-3) 34.8 38.2-49.6 L [facility] [id number] 05:14:00* Test Item Value Reference Range Interpretation Comments Mean Corpuscular Volume (test code = 787-2) 83.1 81-99 [facility] [id number] 05:14:00* Test Item Value Reference Range Interpretation Comments Mean Corpuscular Hemoglobin (test code = 785-6) 31.3 28-32 [facility] Hemoglobin Concent 2018-05-19 05:14:00* Test Item Value Reference Range Interpretation Comments Mean Corpuscular Hemoglobin Concent (test code = 786-4) 37.6 31-35 H [facility] Cell Distribution [id number] 05:14:00* Test Item Value Reference Range Interpretation Comments Red Cell Distribution Width (test code = 22537-6) 11.8 11.7 -14.4 [facility] HospitalPlatelet [id number] 05:14:00* Test Item Value Reference Range Interpretation Comments Platelet Count (test code = 777-3) 216 140-360 [facility]Neutrophils (%) (Auto)2018-05-19 05:14:00 * Test Item Value Reference Range Interpretation Comments Neutrophils (%) (Auto) (test code = 87414-9) 63.0 38.7-80.0 [facility] HospitalLymphocytes (%) (Auto)2018-05-19 05:14:00 * Test Item Value Reference Range Interpretation Comments Lymphocytes (%) (Auto) (test code = 736-9) 28.8 18.0-39.1 [facility]Mon[facility] (%) (Auto)2018-05-19 05:14:00* Test Item Value Reference Range Interpretation Comments Monocytes (%) (Auto) (test code = 5905-5) 6.7 4.4-11.3 [facility]Eosinophils (%) (Auto)2018-05-19 05:14:00 * Test Item Value Reference Range Interpretation Comments Eosinophils (%) (Auto) (test code = 713-8) 0.9 0.0-6.0 [facility]Basophils (%) (Auto)2018-05-19 05:14:00* Test Item Value Reference Range Interpretation Comments Basophils (%) (Auto) (test code = 706-2) 0.4 0.0-1.0 [facility] HospitalIM GRANULOCYTES %2018-05-19 05:14:00* Test Item Value Reference Range Interpretation Comments IM GRANULOCYTES % (test code = IM GRANULOCYTES %) 0.2 0.0- 1.0 [facility] HospitalNeutrophils # (Auto)2018-05-19 05:14:00* Test Item Value Reference Range Interpretation Comments Neutrophils # (Auto) (test code = 751-8) 3.5 2.1-6.9 [facility] HospitalLymphocytes # (Auto)2018-05-19 05:14:00* Test Item Value Reference Range Interpretation Comments Lymphocytes # (Auto) (test code = 06644-9) 1.6 1.0-3.2 [facility]Monocytes # (Auto)2018-05-19 05:14:00* Test Item Value Reference Range Interpretation Comments Monocytes # (Auto) (test code = 742-7) 0.4 0.2-0.8 [facility]Eosinophils # (Auto)2018-05-19 05:14:00* Test Item Value Reference Range Interpretation Comments Eosinophils # (Auto) (test code = 711-2) 0.1 0.0-0.4 [facility]Basophils # (Auto)2018-05-19 05:14:00* Test Item Value Reference Range Interpretation Comments Basophils # (Auto) (test code = 704-7) 0.0 0.0-0.1 [facility] HospitalAbsolute Immature Granulocyte (auto 2018-05-19 05:14:00* Test Item Value Reference Range Interpretation Comments Absolute Immature Granulocyte (auto (navya t code = Absolute Immature Granulocyte (auto) 0.01 0-0.1 [facility] HospitalMagnesium [id number] 05:44:00* Test Item Value Reference Range Interpretation Comments Magnesium Level (test code = 75065-4) 1.9 1.3-2.1 [facility] Jkufgnmhj5875-46-12 05:40:00* Test Item Value Reference Range Interpretation Comments Free Thyroxine (test code = 3024-7) 1.03 0.9-1.8 [facility] HospitalThyroid Stimulating Hormone (TSH) 2018-05-18 05:40:00* Test Item Value Reference Range Interpretation Comments Thyroid Stimulating Hormone (TSH) (test code = 64492-1) 0.825 0.350-4.940 [facility] Sghlnyrii8201-32-28 05:40:00* Test Item Value Reference Range Interpretation Comments Free Thyroxine (test code = 3024-7) 1.03 0.9-1.8 [facility] Xippyqrhh3385-09-40 05:40:00* Test Item Value Reference Range Interpretation Comments Free Thyroxine (test code = 3024-7) 1.03 0.9-1.8 [facility] [id number] 05:40:00* Test Item Value Reference Range Interpretation Comments Free Thyroxine (test code = 3024-7) 1.03 0.9-1.8 [facility] HospitalHemoglobin A1c Gqupnhq2890-75-90 05:09:00 * Test Item Value Reference Range Interpretation Comments Hemoglobin A1c Percent (test code = Hemoglobin A1c Percent) 9.2 4.0-7.0 [facility] [id number] 06:00:00* Test Item Value Reference Range Interpretation Comments CULTURE (BEAKER) (test code = 1095) No growth in 5 days BLOOD [id number] 06:00:00* Test Item Value Reference Range Interpretation Comments CULTURE (BEAKER) (test code = 1095) No growth in 5 days POCT-GLUCOSE [id number] 14:23:00* Test Item Value Reference Range Interpretation Comments POC-GLUCOSE METER (BEAKER) (test code = 1538) 205 mg/dL 70-110 H TESTED AT [address] [address] POCT-GLUCOSE [id number] 11:35:00* Test Item Value Reference Range Interpretation Comments POC-GLUCOSE METER (BEAKER) (test code = 1538) 251 mg/dL 70-110 H TESTED AT [address] [address] POCT-GLUCOSE [id number] 07:52:00* Test Item Value Reference Range Interpretation Comments POC-GLUCOSE METER (BEAKER) (test code = 1538) 174 mg/dL 70-110 H TESTED AT [address] [address] POCT-GLUCOSE [id number] 07:19:00* Test Item Value Reference Range Interpretation Comments POC-GLUCOSE METER (BEAKER) (test code = 1538) 140 mg/dL 70-110 H TESTED AT [address] [address] BASIC METABOLIC [id number] 05:59:00* Test Item Value Reference Range Interpretation Comments SODIUM (BEAKER) (test code = 381) 134 meq/L 136-145 L POTASSIUM (BEAKER) (test code = 379) 3.3 meq/L 3.5-5.1 L CHLORIDE (BEAKER) (test code = 382) 97 meq/L 98-107 L CO2 (BEAKER) (test code = 355) 24 meq/L 22-29 BLOOD UREA NITROGEN (BEAKER) (test code = 354) 11 mg/dL 7-21 CREATININE (BEAKER) (test code = 358) 0.71 mg/dL 0.57-1.25 GLUCOSE RANDOM (BEAKER) (test code = 652) 153 mg/dL 70-105 H CALCIUM (BEAKER) (test code = 697) 8.8 mg/dL 8.4-10.2 EGFR (BEAKER) (test code = 1092) 165 mL/min/1.73 sq m ESTIMATED GFR IS NOT ACCURATE CREATININE CLEARANCE IN PREDICTING GLOMERULAR FILTRATION RATE. ESTIMATED GFR IS NOT APPLICABLE FOR DIALYSIS PATIENTS. CBC (HEMOGRAM ONLY)2018-03-11 05:29:00* Test Item Value Reference Range Interpretation Comments WHITE BLOOD CELL COUNT (BEAKER) (test code = 775) 7.1 K/ L 3.5- 10.5 RED BLOOD CELL COUNT (BEAKER) (test code = 761) 5.15 M/ L 4.63-6 .08 HEMOGLOBIN (BEAKER) (test code = 410) 15.7 GM/DL 13.7-17.5 HEMATOCRIT (BEAKER) (test code = 411) 43.7 % 40.1-51.0 MEAN CORPUSCULAR VOLUME (BEAKER) (test code = 753) 84.9 fL 79. 0-92.2 MEAN CORPUSCULAR HEMOGLOBIN (BEAKER) (test code = 751) 30.5 pg 25.7-32.2 MEAN CORPUSCULAR HEMOGLOBIN CONC (BEAKER) (test code = 752) 35.9 GM/DL 32.3-36.5 RED CELL DISTRIBUTION WIDTH (BEAKER) (test code = 412) 11.5 % 11.6-14.4 L PLATELET COUNT (BEAKER) (test code = 756) 214 K/CU MM 150-450 MEAN PLATELET VOLUME (BEAKER) (test code = 754) 9.4 fL 9.4-12 .4 NUCLEATED RED BLOOD CELLS (BEAKER) (test code = 413) 0 /100 WBC 0 -0 POCT-GLUCOSE [id number] 01:33:00* Test Item Value Reference Range Interpretation Comments POC-GLUCOSE METER (BEAKER) (test code = 1538) 149 mg/dL 70-110 H TESTED AT [address] [address] POCT-GLUCOSE [id number] 16:30:00* Test Item Value Reference Range Interpretation Comments POC-GLUCOSE METER (BEAKER) (test code = 1538) 83 mg/dL 70-110 TESTED AT [address] [place] [address] RESPIRATORY PANEL [id number] 13:31:00* Test Item Value Reference Range Interpretation Comments HUMAN METAPNEUMOVIRUS (BEAKER) (test code = 2683) Not detect ed Not detected, Inconclusive RHINOVIRUS (BEAKER) (test code = 2684) Not detected Not detec geo, Inconclusive INFLUENZA A (BEAKER) (test code = 2685) Not detected Not dete cted, Inconclusive INFLUENZA A SUBTYPE H1 (BEAKER) (test code = 2686) Not detec geo Not detected, Inconclusive INFLUENZA A SUBTYPE H3 (BEAKER) (test code = 2687) Not detec geo Not detected, Inconclusive INFLUENZA A SUBTYPE H1-2009 (BEAKER) (test code = 3198) Not detected Not detected, Inconclusive INFLUENZA B (BEAKER) (test code = 2688) Not detected Not dete cted, Inconclusive RESPIRATORY SYNCYTIAL VIRUS (BEAKER) (test code = 3199) Not detected Not detected, Inconclusive PARAINFLUENZA VIRUS 1 (BEAKER) (test code = 2691) Not detect ed Not detected, Inconclusive PARAINFLUENZA VIRUS 2 (BEAKER) (test code = 2692) Not detect ed Not detected, Inconclusive PARAINFLUENZA VIRUS 3 (BEAKER) (test code = 2693) Not detect ed Not detected, Inconclusive PARAINFLUENZA VIRUS 4 (BEAKER) (test code = 3200) Not detect ed Not detected, Inconclusive ADENOVIRUS (BEAKER) (test code = 2694) Not detected Not detec geo, Inconclusive CORONAVIRUS 229E (BEAKER) (test code = 3201) Not detected Not detected, Inconclusive CORONAVIRUS HKU1 (BEAKER) (test code = 3202) Not detected Not detected, Inconclusive CORONAVIRUS NL63 (BEAKER) (test code = 3203) Not detected Not detected, Inconclusive CORONAVIRUS OC43 (BEAKER) (test code = 3204) Not detected Not detected, Inconclusive BORDETELLA PERTUSSIS (BEAKER) (test code = 3205) Not detecte d Not detected, Inconclusive CHLAMYDOPHILA PNEUMONIAE (BEAKER) (test code = 3206) Not det ected Not detected, Inconclusive MYCOPLASMA PNEUMONIAE (BEAKER) (test code = 3207) Not detect ed Not detected, Inconclusive POCT-GLUCOSE [id number] 11:48:00* Test Item Value Reference Range Interpretation Comments POC-GLUCOSE METER (BEAKER) (test code = 1538) 213 mg/dL 70-[address] [facility] [address] [facility] [address] URINE [id number] 11:31:00* Test Item Value Reference Range Interpretation Comments CULTURE (BEAKER) (test code = 1095) No growth CBC W/PLT COUNT & AUTO [id number] 09:45:00* Test Item Value Reference Range Interpretation Comments WHITE BLOOD CELL COUNT (BEAKER) (test code = 775) 7.5 K/ L 3.5- 10.5 RED BLOOD CELL COUNT (BEAKER) (test code = 761) 5.14 M/ L 4.63-6 .08 HEMOGLOBIN (BEAKER) (test code = 410) 15.6 GM/DL 13.7-17.5 HEMATOCRIT (BEAKER) (test code = 411) 44.5 % 40.1-51.0 MEAN CORPUSCULAR VOLUME (BEAKER) (test code = 753) 86.6 fL 79. 0-92.2 MEAN CORPUSCULAR HEMOGLOBIN (BEAKER) (test code = 751) 30.4 pg 25.7-32.2 MEAN CORPUSCULAR HEMOGLOBIN CONC (BEAKER) (test code = 752) 35.1 GM/DL 32.3-36.5 RED CELL DISTRIBUTION WIDTH (BEAKER) (test code = 412) 11.8 % 11.6-14.4 PLATELET COUNT (BEAKER) (test code = 756) 229 K/CU MM 150-450 MEAN PLATELET VOLUME (BEAKER) (test code = 754) 9.4 fL 9.4-12 .4 NUCLEATED RED BLOOD CELLS (BEAKER) (test code = 413) 0 /100 WBC 0 -0 NEUTROPHILS RELATIVE PERCENT (BEAKER) (test code = 429) 71 % LYMPHOCYTES RELATIVE PERCENT (BEAKER) (test code = 430) 23 % MONOCYTES RELATIVE PERCENT (BEAKER) (test code = 431) 6 % EOSINOPHILS RELATIVE PERCENT (BEAKER) (test code = 432) 0 % BASOPHILS RELATIVE PERCENT (BEAKER) (test code = 437) 0 % NEUTROPHILS ABSOLUTE COUNT (BEAKER) (test code = 670) 5.34 K/ L 1.78-5.38 LYMPHOCYTES ABSOLUTE COUNT (BEAKER) (test code = 414) 1.73 K/ L 1.32-3.57 MONOCYTES ABSOLUTE COUNT (BEAKER) (test code = 415) 0.43 K/ L 0. 30-0.82 EOSINOPHILS ABSOLUTE COUNT (BEAKER) (test code = 416) 0.01 K/ L 0.04-0.54 L BASOPHILS ABSOLUTE COUNT (BEAKER) (test code = 417) 0.01 K/ L 0. 01-0.08 IMMATURE GRANULOCYTES-RELATIVE PERCENT (BEAKER) (test code = 2801) 0 % 0-1 RAD, CHEST, 1 VIEW, NON [id number] 09:41:00Reason for exam:->assess for acute processShould this be performed at the bedside?->YesFINAL REPORT INDICATION: assess for acute process COMPARISON: None. TECHNIQUE: Chest radiograph, single view, portable technique. FINDINGS / IMPRESSION: There is no evidence of pneumonia or pulmonary edema. Cardiac and mediastinal contours are unremarkable. No pleural effusion or pneumothorax is demonstrated. Osseous structures are unremarkable. Signed: Erasmo Roman [facility] Verified Date/Time: 03/10/2018 09:41:23 Reading Location: [facility] Radiology Reading Room -GLUCOSE [id number] 08:15:00* Test Item Value Reference Range Interpretation Comments POC-GLUCOSE METER (BEAKER) (test code = 1538) 165 mg/dL 70-[address] [facility] [address] [facility] [address] [id number] 05:18:00* Test Item Value Reference Range Interpretation Comments MAGNESIUM (BEAKER) (test code = 627) 1.9 mg/dL 1.6-2.6 [id number] 05:18:00* Test Item Value Reference Range Interpretation Comments PHOSPHORUS (BEAKER) (test code = 604) 2.4 mg/dL 2.3-4.7 BASIC METABOLIC [id number] 05:18:00* Test Item Value Reference Range Interpretation Comments SODIUM (BEAKER) (test code = 381) 134 meq/L 136-145 L POTASSIUM (BEAKER) (test code = 379) 3.8 meq/L 3.5-5.1 CHLORIDE (BEAKER) (test code = 382) 100 meq/L 98-107 CO2 (BEAKER) (test code = 355) 22 meq/L 22-29 BLOOD UREA NITROGEN (BEAKER) (test code = 354) 11 mg/dL 7-21 CREATININE (BEAKER) (test code = 358) 0.74 mg/dL 0.57-1.25 GLUCOSE RANDOM (BEAKER) (test code = 652) 205 mg/dL 70-105 H CALCIUM (BEAKER) (test code = 697) 8.8 mg/dL 8.4-10.2 EGFR (BEAKER) (test code = 1092) 157 mL/min/1.73 sq m ESTIMATED GFR IS NOT ACCURATE CREATININE CLEARANCE IN PREDICTING GLOMERULAR FILTRATION RATE. ESTIMATED GFR IS NOT APPLICABLE FOR DIALYSIS PATIENTS. POCT-GLUCOSE [id number] 04:43:00* Test Item Value Reference Range Interpretation Comments POC-GLUCOSE METER (BEAKER) (test code = 1538) 195 mg/dL 70-[address] [facility] [address] [facility] [address] POCT-GLUCOSE [id number] 00:40:00* Test Item Value Reference Range Interpretation Comments POC-GLUCOSE METER (BEAKER) (test code = 1538) 196 mg/dL 70-110 H TESTED AT [address] [address] BASIC METABOLIC [id number] 20:41:00* Test Item Value Reference Range Interpretation Comments SODIUM (BEAKER) (test code = 381) 132 meq/L 136-145 L POTASSIUM (BEAKER) (test code = 379) 4.0 meq/L 3.5-5.1 Specimen slightly hemolyzed CHLORIDE (BEAKER) (test code = 382) 101 meq/L 98-107 CO2 (BEAKER) (test code = 355) 19 meq/L 22-29 L BLOOD UREA NITROGEN (BEAKER) (test code = 354) 12 mg/dL 7-21 CREATININE (BEAKER) (test code = 358) 0.78 mg/dL 0.57-1.25 Specimen slightly hemolyzed GLUCOSE RANDOM (BEAKER) (test code = 652) 199 mg/dL 70-105 H CALCIUM (BEAKER) (test code = 697) 8.7 mg/dL 8.4-10.2 EGFR (BEAKER) (test code = 1092) 148 mL/min/1.73 sq m ESTIMATED GFR IS NOT ACCURATE CREATININE CLEARANCE IN PREDICTING GLOMERULAR FILTRATION RATE. ESTIMATED GFR IS NOT APPLICABLE FOR DIALYSIS PATIENTS. [id number] 20:39:00* Test Item Value Reference Range Interpretation Comments PHOSPHORUS (BEAKER) (test code = 604) 2.0 mg/dL 2.3-4.7 L Specimen slightly hemolyzed POCT-GLUCOSE [id number] 20:26:00* Test Item Value Reference Range Interpretation Comments POC-GLUCOSE METER (BEAKER) (test code = 1538) 207 mg/dL 70-[address] [facility] [address] [facility] [address] POCT-GLUCOSE [id number] 18:06:00* Test Item Value Reference Range Interpretation Comments POC-GLUCOSE METER (BEAKER) (test code = 1538) 202 mg/dL 70-110 H TESTED AT [address] [address] BASIC METABOLIC [id number] 17:12:00* Test Item Value Reference Range Interpretation Comments SODIUM (BEAKER) (test code = 381) 139 meq/L 136-145 POTASSIUM (BEAKER) (test code = 379) 2.9 meq/L 3.5-5.1 L Specimen slightly hemolyzed CHLORIDE (BEAKER) (test code = 382) 118 meq/L 98-107 H CO2 (BEAKER) (test code = 355) 14 meq/L 22-29 L BLOOD UREA NITROGEN (BEAKER) (test code = 354) 10 mg/dL 7-21 CREATININE (BEAKER) (test code = 358) 0.50 mg/dL 0.57-1.25 L Specimen slightly hemolyzed GLUCOSE RANDOM (BEAKER) (test code = 652) 167 mg/dL 70-105 H CALCIUM (BEAKER) (test code = 697) 5.4 mg/dL 8.4-10.2 LL EGFR (BEAKER) (test code = 1092) 248 mL/min/1.73 sq m ESTIMATED GFR IS NOT ACCURATE CREATININE CLEARANCE IN PREDICTING GLOMERULAR FILTRATION RATE. ESTIMATED GFR IS NOT APPLICABLE FOR DIALYSIS PATIENTS. [id number] 17:10:00* Test Item Value Reference Range Interpretation Comments PHOSPHORUS (BEAKER) (test code = 604) 1.7 mg/dL 2.3-4.7 L Specimen slightly hemolyzed POCT-GLUCOSE [id number] 17:07:00* Test Item Value Reference Range Interpretation Comments POC-GLUCOSE METER (BEAKER) (test code = 1538) 211 mg/dL 70-[address] [facility] [address] [facility] [address] POCT-GLUCOSE [id number] 15:39:00* Test Item Value Reference Range Interpretation Comments POC-GLUCOSE METER (BEAKER) (test code = 1538) 244 mg/dL 70-110 H TESTED AT [address] [address] POCT-GLUCOSE [id number] 13:45:00* Test Item Value Reference Range Interpretation Comments POC-GLUCOSE METER (BEAKER) (test code = 1538) 239 mg/dL 70-110 H TESTED AT [address] [address] [id number] 13:44:00* Test Item Value Reference Range Interpretation Comments PHOSPHORUS (BEAKER) (test code = 604) 2.2 mg/dL 2.3-4.7 L BASIC METABOLIC [id number] 13:16:00* Test Item Value Reference Range Interpretation Comments SODIUM (BEAKER) (test code = 381) 137 meq/L 136-145 POTASSIUM (BEAKER) (test code = 379) 3.2 meq/L 3.5-5.1 L Specimen slightly hemolyzed CHLORIDE (BEAKER) (test code = 382) 110 meq/L 98-107 H CO2 (BEAKER) (test code = 355) 13 meq/L 22-29 L BLOOD UREA NITROGEN (BEAKER) (test code = 354) 15 mg/dL 7-21 CREATININE (BEAKER) (test code = 358) 0.65 mg/dL 0.57-1.25 Specimen slightly hemolyzed GLUCOSE RANDOM (BEAKER) (test code = 652) 226 mg/dL 70-105 H CALCIUM (BEAKER) (test code = 697) 6.5 mg/dL 8.4-10.2 L EGFR (BEAKER) (test code = 1092) 183 mL/min/1.73 sq m ESTIMATED GFR IS NOT ACCURATE CREATININE CLEARANCE IN PREDICTING GLOMERULAR FILTRATION RATE. ESTIMATED GFR IS NOT APPLICABLE FOR DIALYSIS PATIENTS. POCT-GLUCOSE [id number] 12:01:00* Test Item Value Reference Range Interpretation Comments POC-GLUCOSE METER (BEAKER) (test code = 1538) 255 mg/dL 70-[address] [facility] [address] [facility] [address] HEMOGLOBIN [id number] 11:41:00* Test Item Value Reference Range Interpretation Comments HEMOGLOBIN A1C (BEAKER) (test code = 368) 11.3 % 4.3-6.1 H POCT-GLUCOSE [id number] 10:53:00* Test Item Value Reference Range Interpretation Comments POC-GLUCOSE METER (BEAKER) (test code = 1538) 240 mg/dL 70-[address] [facility] [address] [facility] [address] [id number] 09:39:00* Test Item Value Reference Range Interpretation Comments PROCALCITONIN (BEAKER) (test code = 3036) < ng/mL <0.05 SEPSIS RISK (ng/mL)Low: 0.05-0.50Intermediate: 0.51-2.00High: > =2.01BASIC METABOLIC [id number] 08:57:00* Test Item Value Reference Range Interpretation Comments SODIUM (BEAKER) (test code = 381) 135 meq/L 136-145 L POTASSIUM (BEAKER) (test code = 379) 4.6 meq/L 3.5-5.1 Specimen slightly hemolyzed CHLORIDE (BEAKER) (test code = 382) 105 meq/L 98-107 CO2 (BEAKER) (test code = 355) 18 meq/L 22-29 L BLOOD UREA NITROGEN (BEAKER) (test code = 354) 18 mg/dL 7-21 CREATININE (BEAKER) (test code = 358) 0.80 mg/dL 0.57-1.25 Specimen slightly hemolyzed GLUCOSE RANDOM (BEAKER) (test code = 652) 145 mg/dL 70-105 H CALCIUM (BEAKER) (test code = 697) 8.6 mg/dL 8.4-10.2 EGFR (BEAKER) (test code = 1092) 144 mL/min/1.73 sq m ESTIMATED GFR IS NOT ACCURATE CREATININE CLEARANCE IN PREDICTING GLOMERULAR FILTRATION RATE. ESTIMATED GFR IS NOT APPLICABLE FOR DIALYSIS PATIENTS. If last glucose was less than 500, may do bedside glucose instead of serum gluco se.[id number] 08:51:00* Test Item Value Reference Range Interpretation Comments PHOSPHORUS (BEAKER) (test code = 604) 2.1 mg/dL 2.3-4.7 L Specimen slightly hemolyzed If last glucose was less than 500, may do bedside glucose instead of serum gluco se.[id number] 08:51:00* Test Item Value Reference Range Interpretation Comments GLUCOSE RANDOM (BEAKER) (test code = 652) 145 mg/dL 70-105 H If last glucose was less than 500, may do bedside glucose instead of serum gluco se.POCT-GLUCOSE [id number] 08:39:00* Test Item Value Reference Range Interpretation Comments POC-GLUCOSE METER (BEAKER) (test code = 1538) 135 mg/dL 70-[address] [facility] [address] [place] [address] [id number] 08:16:00* Test Item Value Reference Range Interpretation Comments PHOSPHORUS (BEAKER) (test code = 604) 1.5 mg/dL 2.3-4.7 LL Specimen slightly hemolyzed BASIC METABOLIC [id number] 08:14:00* Test Item Value Reference Range Interpretation Comments SODIUM (BEAKER) (test code = 381) 139 meq/L 136-145 POTASSIUM (BEAKER) (test code = 379) 3.6 meq/L 3.5-5.1 Specimen slightly hemolyzed CHLORIDE (BEAKER) (test code = 382) 111 meq/L 98-107 H CO2 (BEAKER) (test code = 355) 15 meq/L 22-29 L BLOOD UREA NITROGEN (BEAKER) (test code = 354) 17 mg/dL 7-21 CREATININE (BEAKER) (test code = 358) 0.75 mg/dL 0.57-1.25 Specimen slightly hemolyzed GLUCOSE RANDOM (BEAKER) (test code = 652) 134 mg/dL 70-105 H CALCIUM (BEAKER) (test code = 697) 7.8 mg/dL 8.4-10.2 L EGFR (BEAKER) (test code = 1092) 155 mL/min/1.73 sq m ESTIMATED GFR IS NOT ACCURATE CREATININE CLEARANCE IN PREDICTING GLOMERULAR FILTRATION RATE. ESTIMATED GFR IS NOT APPLICABLE FOR DIALYSIS PATIENTS. BASIC METABOLIC [id number] 08:06:00* Test Item Value Reference Range Interpretation Comments SODIUM (BEAKER) (test code = 381) 140 meq/L 136-145 POTASSIUM (BEAKER) (test code = 379) 3.9 meq/L 3.5-5.1 Specimen moderately hemolyzed CHLORIDE (BEAKER) (test code = 382) 117 meq/L 98-107 H CO2 (BEAKER) (test code = 355) 13 meq/L 22-29 L BLOOD UREA NITROGEN (BEAKER) (test code = 354) 15 mg/dL 7-21 CREATININE (BEAKER) (test code = 358) 0.64 mg/dL 0.57-1.25 Specimen moderately hemolyzed GLUCOSE RANDOM (BEAKER) (test code = 652) 110 mg/dL 70-105 H CALCIUM (BEAKER) (test code = 697) 6.4 mg/dL 8.4-10.2 L EGFR (BEAKER) (test code = 1092) 186 mL/min/1.73 sq m ESTIMATED GFR IS NOT ACCURATE CREATININE CLEARANCE IN PREDICTING GLOMERULAR FILTRATION RATE. ESTIMATED GFR IS NOT APPLICABLE FOR DIALYSIS PATIENTS. URINALYSIS W/ [id number] 07:41:00* Test Item Value Reference Range Interpretation Comments COLOR (BEAKER) (test code = 470) Yellow CLARITY (BEAKER) (test code = 469) Clear SPECIFIC GRAVITY UA (BEAKER) (test code = 468) 1.024 1.001-1 .035 PH UA (BEAKER) (test code = 467) 6.0 5.0-8.0 PROTEIN UA (BEAKER) (test code = 464) 30 mg/dL Negative A GLUCOSE UA (BEAKER) (test code = 365) >1000 mg/dL Negative A KETONES UA (BEAKER) (test code = 371) >150 mg/dL Negative A BILIRUBIN UA (BEAKER) (test code = 462) Negative Negative BLOOD UA (BEAKER) (test code = 461) Negative Negative NITRITE UA (BEAKER) (test code = 465) Negative Negative LEUKOCYTE ESTERASE UA (BEAKER) (test code = 466) Moderate Negat jessika A UROBILINOGEN UA (BEAKER) (test code = 463) 0.2 mg/dL 0.2-1.0 RBC UA (BEAKER) (test code = 519) < /HPF WBC UA (BEAKER) (test code = 520) 52 /HPF MUCUS (BEAKER) (test code = 1574) Occasional SQUAMOUS EPITHELIAL (BEAKER) (test code = 516) < /HPF CASTS (BEAKER) (test code = 1579) 4 /LPF SOURCE(BEAKER) (test code = 2795) [id number] 07:32:00* Test Item Value Reference Range Interpretation Comments POTASSIUM (BEAKER) (test code = 379) 3.9 meq/L 3.5-5.1 Specimen moderately hemolyzed POCT-GLUCOSE [id number] 07:21:00* Test Item Value Reference Range Interpretation Comments POC-GLUCOSE METER (BEAKER) (test code = 1538) 103 mg/dL 70-110 TESTED AT [address] [address] POCT-GLUCOSE [id number] 06:48:00* Test Item Value Reference Range Interpretation Comments POC-GLUCOSE METER (BEAKER) (test code = 1538) 155 mg/dL 70-110 H TESTED AT [address] [address] T4, [id number] 06:37:00* Test Item Value Reference Range Interpretation Comments FREE T4 (BEAKER) (test code = 655) 1.22 ng/dL 0.70-1.48 TSH/FREE T4 IF [id number] 05:40:00* Test Item Value Reference Range Interpretation Comments THYROID STIMULATING HORMONE (BEAKER) (test code = 772) 0.25 uIU/mL 0.35-4.94 L POCT-GLUCOSE [id number] 05:12:00* Test Item Value Reference Range Interpretation Comments POC-GLUCOSE METER (BEAKER) (test code = 1538) 171 mg/dL 70-110 H TESTED AT [address] [address] POCT-GLUCOSE [id number] 04:11:00* Test Item Value Reference Range Interpretation Comments POC-GLUCOSE METER (BEAKER) (test code = 1538) 204 mg/dL 70-110 H TESTED AT [address] [address] [address] BLOOD GAS, [id number] 04:07:00* Test Item Value Reference Range Interpretation Comments PH VENOUS (BEAKER) (test code = 701) 7.33 7.32-7.42 PCO2 VENOUS (BEAKER) (test code = 755) 30 mmHg 41-51 L PO2 VENOUS (BEAKER) (test code = 702) 172 mmHg 25-40 H O2 SATURATION VENOUS (BEAKER) (test code = 703) 99.1 % 40.0-7 0.0 H HCO3 VENOUS (BEAKER) (test code = 705) 15 mmol/L 21-29 L BASE EXCESS VENOUS (BEAKER) (test code = 704) -9.0 mmol/L -2.0-3.0 L PATIENT TEMPERATURE (BEAKER) (test code = 1818) 36.7 C FIO2 (BEAKER) (test code = 1819) 21.0 % POCT-GLUCOSE [id number] 03:09:00* Test Item Value Reference Range Interpretation Comments POC-GLUCOSE METER (BEAKER) (test code = 1538) 239 mg/dL 70-[address] [facility] [address] [facility] [address] LACTIC ACID, VENOUS, WHOLE [id number] 03:07:00* Test Item Value Reference Range Interpretation Comments LACTATE BLOOD VENOUS (2) (BEAKER) (test code = 2872) 1.7 mmol/L 0 .5-2.2 Specimen slightly hemolyzed Effective 03/14/2016: Units/Reference Range ChangeNew: 0.5-2.2 mmol/L Previous: 5 -20 mg/dLCBC W/PLT COUNT & AUTO [id number] 03:06:00* Test Item Value Reference Range Interpretation Comments WHITE BLOOD CELL COUNT (BEAKER) (test code = 775) 15.9 K/ L 3.5- 10.5 H RED BLOOD CELL COUNT (BEAKER) (test code = 761) 5.21 M/ L 4.63-6 .08 HEMOGLOBIN (BEAKER) (test code = 410) 16.1 GM/DL 13.7-17.5 HEMATOCRIT (BEAKER) (test code = 411) 46.7 % 40.1-51.0 MEAN CORPUSCULAR VOLUME (BEAKER) (test code = 753) 89.6 fL 79. 0-92.2 MEAN CORPUSCULAR HEMOGLOBIN (BEAKER) (test code = 751) 30.9 pg 25.7-32.2 MEAN CORPUSCULAR HEMOGLOBIN CONC (BEAKER) (test code = 752) 34.5 GM/DL 32.3-36.5 RED CELL DISTRIBUTION WIDTH (BEAKER) (test code = 412) 12.1 % 11.6-14.4 PLATELET COUNT (BEAKER) (test code = 756) 239 K/CU MM 150-450 MEAN PLATELET VOLUME (BEAKER) (test code = 754) 9.2 fL 9.4-12 .4 L NUCLEATED RED BLOOD CELLS (BEAKER) (test code = 413) 0 /100 WBC 0 -0 NEUTROPHILS RELATIVE PERCENT (BEAKER) (test code = 429) 86 % LYMPHOCYTES RELATIVE PERCENT (BEAKER) (test code = 430) 10 % MONOCYTES RELATIVE PERCENT (BEAKER) (test code = 431) 4 % EOSINOPHILS RELATIVE PERCENT (BEAKER) (test code = 432) 0 % BASOPHILS RELATIVE PERCENT (BEAKER) (test code = 437) 0 % NEUTROPHILS ABSOLUTE COUNT (BEAKER) (test code = 670) 13.73 K/ L 1.78-5.38 H LYMPHOCYTES ABSOLUTE COUNT (BEAKER) (test code = 414) 1.51 K/ L 1.32-3.57 MONOCYTES ABSOLUTE COUNT (BEAKER) (test code = 415) 0.59 K/ L 0. 30-0.82 EOSINOPHILS ABSOLUTE COUNT (BEAKER) (test code = 416) 0.00 K/ L 0.04-0.54 L BASOPHILS ABSOLUTE COUNT (BEAKER) (test code = 417) 0.02 K/ L 0. 01-0.08 IMMATURE GRANULOCYTES-RELATIVE PERCENT (BEAKER) (test code = 2801) 1 % 0-1 TROPONIN [id number] 03:05:00* Test Item Value Reference Range Interpretation Comments TROPONIN I (BEAKER) (test code = 397) < ng/mL 0.00-0.03 Troponin I (TnI) levels must be interpreted in the context of the presenting sym ptoms and the clinical findings. Elevated TnI levels indicate myocardial damage, but are not specific for ischemic heart disease. Elevated TnI levels are seen i n patients with other cardiac conditions (including myocarditis and congestive h eart failure), and slight TnI elevations occur in patients with other conditions , including sepsis, renal failure, acidosis, acute neurological disease, and per sistent tachyarrhythmia.If last glucose was less than 500, may do bedside glucos e instead of serum glucose.[id number] 03:02:00* Test Item Value Reference Range Interpretation Comments LIPASE (BEAKER) (test code = 749) < U/L 8-78 L If last glucose was less than 500, may do bedside glucose instead of serum gluco se.[id number] 02:59:00* Test Item Value Reference Range Interpretation Comments POTASSIUM (BEAKER) (test code = 379) 4.8 meq/L 3.5-5.1 If last glucose was less than 500, may do bedside glucose instead of serum gluco se.[id number] 02:59:00* Test Item Value Reference Range Interpretation Comments MAGNESIUM (BEAKER) (test code = 627) 2.1 mg/dL 1.6-2.6 If last glucose was less than 500, may do bedside glucose instead of serum gluco se.[id number] 02:59:00* Test Item Value Reference Range Interpretation Comments PHOSPHORUS (BEAKER) (test code = 604) 2.9 mg/dL 2.3-4.7 If last glucose was less than 500, may do bedside glucose instead of serum gluco se.HEPATIC FUNCTION [id number] 02:59:00* Test Item Value Reference Range Interpretation Comments TOTAL PROTEIN (BEAKER) (test code = 770) 8.2 gm/dL 6.0-8.3 ALBUMIN (BEAKER) (test code = 1145) 4.8 g/dL 3.5-5.0 BILIRUBIN TOTAL (BEAKER) (test code = 377) 0.9 mg/dL 0.2-1.2 BILIRUBIN DIRECT (BEAKER) (test code = 706) 0.4 mg/dL 0.1-0.5 ALKALINE PHOSPHATASE (BEAKER) (test code = 346) 96 U/L 40-150 AST (SGOT) (BEAKER) (test code = 353) 14 U/L 5-34 ALT (SGPT) (BEAKER) (test code = 347) 12 U/L 6-55 If last glucose was less than 500, may do bedside glucose instead of serum gluco se.[id number] 02:59:00* Test Item Value Reference Range Interpretation Comments GLUCOSE RANDOM (BEAKER) (test code = 652) 307 mg/dL 70-105 H If last glucose was less than 500, may do bedside glucose instead of serum gluco se.BASIC METABOLIC [id number] 02:59:00* Test Item Value Reference Range Interpretation Comments SODIUM (BEAKER) (test code = 381) 133 meq/L 136-145 L POTASSIUM (BEAKER) (test code = 379) 4.8 meq/L 3.5-5.1 CHLORIDE (BEAKER) (test code = 382) 101 meq/L 98-107 CO2 (BEAKER) (test code = 355) 11 meq/L 22-29 L BLOOD UREA NITROGEN (BEAKER) (test code = 354) 20 mg/dL 7-21 CREATININE (BEAKER) (test code = 358) 1.05 mg/dL 0.57-1.25 GLUCOSE RANDOM (BEAKER) (test code = 652) 307 mg/dL 70-105 H CALCIUM (BEAKER) (test code = 697) 9.7 mg/dL 8.4-10.2 EGFR (BEAKER) (test code = 1092) 105 mL/min/1.73 sq m ESTIMATED GFR IS NOT ACCURATE CREATININE CLEARANCE IN PREDICTING GLOMERULAR FILTRATION RATE. ESTIMATED GFR IS NOT APPLICABLE FOR DIALYSIS PATIENTS. If last glucose was less than 500, may do bedside glucose instead of serum gluco se.KETONE, [id number] 02:56:00* Test Item Value Reference Range Interpretation Comments KETONES, BLOOD (BEAKER) (test code = 1103) 4.8 mmol/L <0.4 H POCT-GLUCOSE [id number] 01:25:00* Test Item Value Reference Range Interpretation Comments POC-GLUCOSE METER (BEAKER) (test code = 1538) 276 mg/dL 70-[address] [facility] [address] [facility] [address] Lactic Acid [id number] 21:28:00* Test Item Value Reference Range Interpretation Comments Lactic Acid Level (test code = Lactic Acid Level) 44.6 4.5- 19.8 H [facility] Xsnjz9747-55-30 21:28:00* Test Item Value Reference Range Interpretation Comments Lactic Acid Level (test code = Lactic Acid Level) 44.6 4.5- 19.8 H [facility] Acid Lqwqo1737-32-36 21:28:00* Test Item Value Reference Range Interpretation Comments Lactic Acid Level (test code = Lactic Acid Level) 44.6 4.5- 19.8 H [facility] HospitalL[facility] Acid Oknys3919-16-97 21:28:00* Test Item Value Reference Range Interpretation Comments Lactic Acid Level (test code = Lactic Acid Level) 44.6 4.5- 19.8 H [facility] Amndhov7586-56-83 16:13:00* Test Item Value Reference Range Interpretation Comments Bedside Glucose (test code = 38540-7) 77 70-120 Meter ID: [id number] Glucose 2018-01-29 16:13:00* Test Item Value Reference Range Interpretation Comments Bedside Glucose (test code = 96637-7) 77 70-120 Meter ID: [id number] [facility] Glucose 2018-01-29 11:49:00* Test Item Value Reference Range Interpretation Comments Bedside Glucose (test code = 75858-7) 108 70-120 Meter ID: [id number] [facility] Hospitalodium Level 2018-01-29 07:03:00* Test Item Value Reference Range Interpretation Comments Sodium Level (test code = 2951-2) 135 136-145 L [facility] HospitalPotassium Suhuv3139-28-18 07:03:00* Test Item Value Reference Range Interpretation Comments Potassium Level (test code = 2823-3) 3.2 3.5-5.1 L [facility] HospitalChloride Mszfq6251-90-86 07:03:00* Test Item Value Reference Range Interpretation Comments Chloride Level (test code = 2075-0) 99 98-107 [facility] HospitalCarbon Dioxide Fsypa6280-97-88 07:03:00* Test Item Value Reference Range Interpretation Comments Carbon Dioxide Level (test code = 2028-9) 28 22-29 [facility] HospitalAnion [id number] 07:03:00* Test Item Value Reference Range Interpretation Comments Anion Gap (test code = 45082-9) 11.2 8-16 [facility] HospitalBlood Urea Qgzfauac4299-92-97 07:03:00* Test Item Value Reference Range Interpretation Comments Blood Urea Nitrogen (test code = 3094-0) 7 - [facility] HospitalCreatinine2018-03-21 07:03:00* Test Item Value Reference Range Interpretation Comments Creatinine (test code = 2160-0) 0.58 0.72-1.25 L [facility] HospitalBUN/Creatinine Arzku9065-49-85 07:03:00* Test Item Value Reference Range Interpretation Comments BUN/Creatinine Ratio (test code = 3097-3) 12 05-05 [facility] HospitalEstimat Glomerular Filtration Rate 2018-01-29 07:03:00* Test Item Value Reference Range Interpretation Comments Estimat Glomerular Filtration Rate (test code = 55988-7) 60- >60 Ranges were taken from the National Kidney Disease Education Program and the [facility] literature.Reference ranges:60 or greater: Pebxlr84-42 ( for 3 consecutive months): Chronic kidney disease 15 or less: Kidney failureUvalde Memorial HospitalGlucose Bggbo0969-72-65 07:03:00* Test Item Value Reference Range Interpretation Comments Glucose Level (test code = JKH5076) 184 74-118 H [facility] HospitalCalcium Fyjol0557-81-28 07:03:00* Test Item Value Reference Range Interpretation Comments Calcium Level (test code = 47492-2) 8.4 8.4-10.2 [facility] Hospitalodium Tlgpc4826-24-18 07:03:00* Test Item Value Reference Range Interpretation Comments Sodium Level (test code = 2951-2) 135 136-145 L [facility] HospitalPotassium Xggxp7071-38-45 07:03:00* Test Item Value Reference Range Interpretation Comments Potassium Level (test code = 2823-3) 3.2 3.5-5.1 L [facility] HospitalChloride Rpdcd0353-56-64 07:03:00* Test Item Value Reference Range Interpretation Comments Chloride Level (test code = 2075-0) 99 98-107 [facility] HospitalCarbon Dioxide Jitfj6923-76-56 07:03:00* Test Item Value Reference Range Interpretation Comments Carbon Dioxide Level (test code = 2028-9) 28 22-29 [facility] HospitalAnion Gyy8947-16-28 07:03:00* Test Item Value Reference Range Interpretation Comments Anion Gap (test code = 71733-5) 11.2 8-16 [facility] HospitalBlood Urea Veaghcko2024-39-02 07:03:00* Test Item Value Reference Range Interpretation Comments Blood Urea Nitrogen (test code = 3094-0) 7 7-26 [facility] HospitalCreatinine2018-03-21 07:03:00* Test Item Value Reference Range Interpretation Comments Creatinine (test code = 2160-0) 0.58 0.72-1.25 L [facility] HospitalBUN/Creatinine Bftnu0128-39-44 07:03:00* Test Item Value Reference Range Interpretation Comments BUN/Creatinine Ratio (test code = 3097-3) 12 05-05 [facility] HospitalEstimat Glomerular Filtration Rate 2018-01-29 07:03:00* Test Item Value Reference Range Interpretation Comments Estimat Glomerular Filtration Rate (test code = 23848-8) 60- >60 Ranges were taken from the National Kidney Disease Education Program and the [facility] literature.Reference ranges:60 or greater: Tqthcc62-73 ( for 3 consecutive months): Chronic kidney disease 15 or less: Kidney failureUvalde Memorial HospitalGlucose Axepu0228-74-93 07:03:00* Test Item Value Reference Range Interpretation Comments Glucose Level (test code = PUQ1464) 184 74-118 H [facility] HospitalCalcium Wtikq6516-18-21 07:03:00* Test Item Value Reference Range Interpretation Comments Calcium Level (test code = 13221-0) 8.4 8.4-10.2 [facility] Hospitalodium Wfgyq8736-67-79 07:03:00* Test Item Value Reference Range Interpretation Comments Sodium Level (test code = 2951-2) 135 136-145 L [facility] HospitalPotassium Fotqg8058-45-17 07:03:00* Test Item Value Reference Range Interpretation Comments Potassium Level (test code = 2823-3) 3.2 3.5-5.1 L [facility] HospitalChloride Egndi7068-90-97 07:03:00* Test Item Value Reference Range Interpretation Comments Chloride Level (test code = 2075-0) 99 98-107 [facility] HospitalCarbon Dioxide Ibqfc4135-65-26 07:03:00* Test Item Value Reference Range Interpretation Comments Carbon Dioxide Level (test code = 2028-9) 28 22-29 [facility] HospitalAnion Dis9845-44-08 07:03:00* Test Item Value Reference Range Interpretation Comments Anion Gap (test code = 17713-2) 11.2 8-16 [facility] HospitalBlood Urea Ntntsvzi2664-52-68 07:03:00* Test Item Value Reference Range Interpretation Comments Blood Urea Nitrogen (test code = 3094-0) 7 7-26 [facility] HospitalCreatinine2018-03-21 07:03:00* Test Item Value Reference Range Interpretation Comments Creatinine (test code = 2160-0) 0.58 0.72-1.25 L [facility] HospitalBUN/Creatinine Dbbgn3375-10-22 07:03:00* Test Item Value Reference Range Interpretation Comments BUN/Creatinine Ratio (test code = 3097-3) 12 6-25 [facility] HospitalEstimat Glomerular Filtration Rate 2018-01-29 07:03:00* Test Item Value Reference Range Interpretation Comments Estimat Glomerular Filtration Rate (test code = 59273-5) 60- >60 Ranges were taken from the National Kidney Disease Education Program and the [facility] literature.Reference ranges:60 or greater: Bsckfk74-99 ( for 3 consecutive months): Chronic kidney disease 15 or less: Kidney failureUvalde Memorial HospitalGlucose Vuhwt6032-87-98 07:03:00* Test Item Value Reference Range Interpretation Comments Glucose Level (test code = KKF5517) 184 74-118 H [facility] HospitalCalcium Egoni5568-62-28 07:03:00* Test Item Value Reference Range Interpretation Comments Calcium Level (test code = 03326-1) 8.4 8.4-10.2 [facility] Auxvmqizf7831-66-01 06:52:00* Test Item Value Reference Range Interpretation Comments Total Bilirubin (test code = 1975-2) 1.8 0.2-1.2 H [facility] HospitalAspartate Amino Transf (AST/SGOT) 2018-01-28 06:52:00* Test Item Value Reference Range Interpretation Comments Aspartate Amino Transf (AST/SGOT) (test code = Aspartate Amino Transf (AST/SGOT)) 12 5-34 [facility] HospitalAlanine Aminotransferase (ALT/SGPT) 2018-01-28 06:52:00* Test Item Value Reference Range Interpretation Comments Alanine Aminotransferase (ALT/SGPT) (test code = 1742-6) 8 0-55 [facility] HospitalT[facility] Ginmdsb7651-61-31 06:52:00* Test Item Value Reference Range Interpretation Comments Total Protein (test code = 2885-2) 5.9 6.5-8.1 L [facility] HospitalAlbumin2018-03-20 06:52:00* Test Item Value Reference Range Interpretation Comments Albumin (test code = 1751-7) 3.2 3.5-5.0 L [facility] HospitalGlobulin2018-03-20 06:52:00* Test Item Value Reference Range Interpretation Comments Globulin (test code = 80731-3) 2.7 2.3-3.5 [facility] HospitalAlbumin/Globulin Uagyb8215-60-25 06:52:00 * Test Item Value Reference Range Interpretation Comments Albumin/Globulin Ratio (test code = 1759-0) 1.2 0.8-2.0 [facility] HospitalAlkaline Kknhvemwwlr0413-53-86 06:52:00* Test Item Value Reference Range Interpretation Comments Alkaline Phosphatase (test code = 6768-6) 94 40-150 [facility] Wcscwcset4565-41-24 06:52:00* Test Item Value Reference Range Interpretation Comments Total Bilirubin (test code = 1974-2) 1.8 0.2-1.2 H [facility] HospitalAspartate Amino Transf (AST/SGOT) 2018-01-28 06:52:00* Test Item Value Reference Range Interpretation Comments Aspartate Amino Transf (AST/SGOT) (test code = Aspartate Amino Transf (AST/SGOT)) [facility] HospitalAlanine Aminotransferase (ALT/SGPT) 2018-01-28 06:52:00* Test Item Value Reference Range Interpretation Comments Alanine Aminotransferase (ALT/SGPT) (test code = 1742-6) 8 0-55 [facility] HospitalTotal Hyzibmq8117-23-73 06:52:00* Test Item Value Reference Range Interpretation Comments Total Protein (test code = 2885-2) 5.9 6.5-8.1 L [facility] HospitalAlbumin2018-03-20 06:52:00* Test Item Value Reference Range Interpretation Comments Albumin (test code = 1751-7) 3.2 3.5-5.0 L [facility] HospitalGlobulin2018-03-20 06:52:00* Test Item Value Reference Range Interpretation Comments Globulin (test code = 74742-9) 2.7 2.3-3.5 [facility] HospitalAlbumin/Globulin Xmjkw9690-89-68 06:52:00 * Test Item Value Reference Range Interpretation Comments Albumin/Globulin Ratio (test code = 1759-0) 1.2 0.8-2.0 [facility] HospitalAlkaline Jfyorlsxrze6387-77-31 06:52:00* Test Item Value Reference Range Interpretation Comments Alkaline Phosphatase (test code = 6768-6) 94 40-150 [facility] HospitalTotal Qeqappews9212-99-98 06:52:00* Test Item Value Reference Range Interpretation Comments Total Bilirubin (test code = 1975-2) 1.8 0.2-1.2 H [facility] HospitalAspartate Amino Transf (AST/SGOT) 2018-01-28 06:52:00* Test Item Value Reference Range Interpretation Comments Aspartate Amino Transf (AST/SGOT) (test code = Aspartate Amino Transf (AST/SGOT)) [facility] HospitalAlanine Aminotransferase (ALT/SGPT) 2018-01-28 06:52:00* Test Item Value Reference Range Interpretation Comments Alanine Aminotransferase (ALT/SGPT) (test code = 1742-6) 8 0-55 [facility] HospitalTotal Bordkqu2018-78-08 06:52:00* Test Item Value Reference Range Interpretation Comments Total Protein (test code = 2885-2) 5.9 6.5-8.1 L [facility] HospitalAlbumin2018-03-20 06:52:00* Test Item Value Reference Range Interpretation Comments Albumin (test code = 1751-7) 3.2 3.5-5.0 L [facility] HospitalGlobulin2018-03-20 06:52:00* Test Item Value Reference Range Interpretation Comments Globulin (test code = 94591-9) 2.7 2.3-3.5 [facility] HospitalAlbumin/Globulin Amlza1372-81-42 06:52:00 * Test Item Value Reference Range Interpretation Comments Albumin/Globulin Ratio (test code = 1759-0) 1.2 0.8-2.0 [facility] HospitalAlkaline Haqwxsubiyk2865-62-20 06:52:00* Test Item Value Reference Range Interpretation Comments Alkaline Phosphatase (test code = 6768-6) 94 40-150 [facility] HospitalWhite Blood Wtpgx7298-42-35 06:18:00* Test Item Value Reference Range Interpretation Comments White Blood Count (test code = 6690-2) 6.43 4.8-10.8 [facility] HospitalRed Blood Ynhty3696-45-03 06:18:00* Test Item Value Reference Range Interpretation Comments Red Blood Count (test code = 789-8) 4.86 4.3-5.7 [facility] HospitalHemoglobin2018-03-20 06:18:00* Test Item Value Reference Range Interpretation Comments Hemoglobin (test code = 88153-5) 15.3 14.0-18.0 [facility] HospitalHematocrit2018-03-20 06:18:00* Test Item Value Reference Range Interpretation Comments Hematocrit (test code = 4544-3) 41.2 38.2-49.6 [facility] HospitalMean Corpuscular Stxhse0646-64-94 06:18:00* Test Item Value Reference Range Interpretation Comments Mean Corpuscular Volume (test code = 787-2) 84.8 81-99 [facility] HospitalMean Corpuscular Gactjvgcvc9711-72-52 06:18:00* Test Item Value Reference Range Interpretation Comments Mean Corpuscular Hemoglobin (test code = 785-6) 31.5 28-32 [facility] HospitalMean Corpuscular Hemoglobin Concent 2018-01-28 06:18:00* Test Item Value Reference Range Interpretation Comments Mean Corpuscular Hemoglobin Concent (test code = 786-4) 37.1 31-35 H [facility] HospitalRed Cell Distribution Tonjr8721-80-36 06:18:00* Test Item Value Reference Range Interpretation Comments Red Cell Distribution Width (test code = 72496-2) 10.8 11.7 -14.4 L [facility] HospitalPlatelet Rqcqn1497-84-66 06:18:00* Test Item Value Reference Range Interpretation Comments Platelet Count (test code = 777-3) 197 140-360 [facility] HospitalNeutrophils (%) (Auto)2018-01-28 06:18:00 * Test Item Value Reference Range Interpretation Comments Neutrophils (%) (Auto) (test code = 84718-7) 58.3 38.7-80.0 [facility] HospitalLymphocytes (%) (Auto)2018-01-28 06:18:00 * Test Item Value Reference Range Interpretation Comments Lymphocytes (%) (Auto) (test code = 736-9) 31.9 18.0-39.1 [facility] HospitalMonocytes (%) (Auto)2018-01-28 06:18:00* Test Item Value Reference Range Interpretation Comments Monocytes (%) (Auto) (test code = 5905-5) 8.1 4.4-11.3 [facility] HospitalEosinophils (%) (Auto)2018-01-28 06:18:00 * Test Item Value Reference Range Interpretation Comments Eosinophils (%) (Auto) (test code = 713-8) 1.1 0.0-6.0 [facility] HospitalBasophils (%) (Auto)2018-01-28 06:18:00* Test Item Value Reference Range Interpretation Comments Basophils (%) (Auto) (test code = 706-2) 0.3 0.0-1.0 [facility] HospitalIM GRANULOCYTES %2018-01-28 06:18:00* Test Item Value Reference Range Interpretation Comments IM GRANULOCYTES % (test code = IM GRANULOCYTES %) 0.3 0.0- 1.0 [facility] HospitalNeutrophils # (Auto)2018-01-28 06:18:00* Test Item Value Reference Range Interpretation Comments Neutrophils # (Auto) (test code = 751-8) 3.8 2.1-6.9 [facility] HospitalLymphocytes # (Auto)2018-01-28 06:18:00* Test Item Value Reference Range Interpretation Comments Lymphocytes # (Auto) (test code = 19398-7) 2.1 1.0-3.2 [facility] HospitalMonocytes # (Auto)2018-01-28 06:18:00* Test Item Value Reference Range Interpretation Comments Monocytes # (Auto) (test code = 742-7) 0.5 0.2-0.8 [facility] HospitalEosinophils # (Auto)2018-01-28 06:18:00* Test Item Value Reference Range Interpretation Comments Eosinophils # (Auto) (test code = 711-2) 0.1 0.0-0.4 [facility] HospitalBasophils # (Auto)2018-01-28 06:18:00* Test Item Value Reference Range Interpretation Comments Basophils # (Auto) (test code = 704-7) 0.0 0.0-0.1 [facility] HospitalAbsolute Immature Granulocyte (auto 2018-01-28 06:18:00* Test Item Value Reference Range Interpretation Comments Absolute Immature Granulocyte (auto (navya t code = Absolute Immature Granulocyte (auto) 0.02 0-0.1 [facility] HospitalWhite Blood Efiun1325-82-29 06:18:00* Test Item Value Reference Range Interpretation Comments White Blood Count (test code = 6690-2) 6.43 4.8-10.8 [facility] HospitalRed Blood Fmwld2724-52-69 06:18:00* Test Item Value Reference Range Interpretation Comments Red Blood Count (test code = 789-8) 4.86 4.3-5.7 [facility] HospitalHemoglobin2018-03-20 06:18:00* Test Item Value Reference Range Interpretation Comments Hemoglobin (test code = 71817-2) 15.3 14.0-18.0 [facility] HospitalHematocrit2018-03-20 06:18:00* Test Item Value Reference Range Interpretation Comments Hematocrit (test code = 4544-3) 41.2 38.2-49.6 [facility] HospitalMean Corpuscular Zepjki3657-52-32 06:18:00* Test Item Value Reference Range Interpretation Comments Mean Corpuscular Volume (test code = 787-2) 84.8 81-99 [facility] HospitalMean Corpuscular Mnwkvsstkd1453-38-37 06:18:00* Test Item Value Reference Range Interpretation Comments Mean Corpuscular Hemoglobin (test code = 785-6) 31.5 28-32 [facility] HospitalMean Corpuscular Hemoglobin Concent 2018-01-28 06:18:00* Test Item Value Reference Range Interpretation Comments Mean Corpuscular Hemoglobin Concent (test code = 786-4) 37.1 31-35 H [facility] HospitalRed Cell Distribution Vdkjg7286-12-26 06:18:00* Test Item Value Reference Range Interpretation Comments Red Cell Distribution Width (test code = 91032-2) 10.8 11.7 -14.4 L [facility] HospitalPlatelet Bmlhz0039-46-80 06:18:00* Test Item Value Reference Range Interpretation Comments Platelet Count (test code = 777-3) 197 140-360 [facility] HospitalNeutrophils (%) (Auto)2018-01-28 06:18:00 * Test Item Value Reference Range Interpretation Comments Neutrophils (%) (Auto) (test code = 24147-4) 58.3 38.7-80.0 [facility] HospitalLymphocytes (%) (Auto)2018-01-28 06:18:00 * Test Item Value Reference Range Interpretation Comments Lymphocytes (%) (Auto) (test code = 736-9) 31.9 18.0-39.1 [facility] HospitalMonocytes (%) (Auto)2018-01-28 06:18:00* Test Item Value Reference Range Interpretation Comments Monocytes (%) (Auto) (test code = 5905-5) 8.1 4.4-11.3 [facility]Eosinophils (%) (Auto)2018-01-28 06:18:00 * Test Item Value Reference Range Interpretation Comments Eosinophils (%) (Auto) (test code = 713-8) 1.1 0.0-6.0 [facility]Basophils (%) (Auto)2018-01-28 06:18:00* Test Item Value Reference Range Interpretation Comments Basophils (%) (Auto) (test code = 706-2) 0.3 0.0-1.0 [facility] HospitalIM GRANULOCYTES %2018-01-28 06:18:00* Test Item Value Reference Range Interpretation Comments IM GRANULOCYTES % (test code = IM GRANULOCYTES %) 0.3 0.0- 1.0 [facility] HospitalNeutrophils # (Auto)2018-01-28 06:18:00* Test Item Value Reference Range Interpretation Comments Neutrophils # (Auto) (test code = 751-8) 3.8 2.1-6.9 [facility] HospitalLymphocytes # (Auto)2018-01-28 06:18:00* Test Item Value Reference Range Interpretation Comments Lymphocytes # (Auto) (test code = 00139-9) 2.1 1.0-3.2 [facility] HospitalMonocytes # (Auto)2018-01-28 06:18:00* Test Item Value Reference Range Interpretation Comments Monocytes # (Auto) (test code = 742-7) 0.5 0.2-0.8 [facility] HospitalEosinophils # (Auto)2018-01-28 06:18:00* Test Item Value Reference Range Interpretation Comments Eosinophils # (Auto) (test code = 711-2) 0.1 0.0-0.4 [facility] HospitalBasophils # (Auto)2018-01-28 06:18:00* Test Item Value Reference Range Interpretation Comments Basophils # (Auto) (test code = 704-7) 0.0 0.0-0.1 [facility] HospitalAbsolute Immature Granulocyte (auto 2018-01-28 06:18:00* Test Item Value Reference Range Interpretation Comments Absolute Immature Granulocyte (auto (navya t code = Absolute Immature Granulocyte (auto) 0.02 0-0.1 [facility] HospitalWhite Blood Vrqjd4264-77-29 06:18:00* Test Item Value Reference Range Interpretation Comments White Blood Count (test code = 6690-2) 6.43 4.8-10.8 [facility] HospitalRed Blood Zviwb4073-01-95 06:18:00* Test Item Value Reference Range Interpretation Comments Red Blood Count (test code = 789-8) 4.86 4.3-5.7 [facility] HospitalHemoglobin2018-03-20 06:18:00* Test Item Value Reference Range Interpretation Comments Hemoglobin (test code = 67823-6) 15.3 14.0-18.0 [facility] HospitalHematocrit2018-03-20 06:18:00* Test Item Value Reference Range Interpretation Comments Hematocrit (test code = 4544-3) 41.2 38.2-49.6 [facility] HospitalMean Corpuscular Fumnwm1267-74-26 06:18:00* Test Item Value Reference Range Interpretation Comments Mean Corpuscular Volume (test code = 787-2) 84.8 81-99 [facility] HospitalMean Corpuscular Qqfbbbukyl4113-04-79 06:18:00* Test Item Value Reference Range Interpretation Comments Mean Corpuscular Hemoglobin (test code = 785-6) 31.5 28-32 [facility] HospitalMean Corpuscular Hemoglobin Concent 2018-01-28 06:18:00* Test Item Value Reference Range Interpretation Comments Mean Corpuscular Hemoglobin Concent (test code = 786-4) 37.1 31-35 H [facility] HospitalRed Cell Distribution Vmhsw4631-50-89 06:18:00* Test Item Value Reference Range Interpretation Comments Red Cell Distribution Width (test code = 17282-0) 10.8 11.7 -14.4 L [facility] HospitalPlatelet Uhwan2470-04-85 06:18:00* Test Item Value Reference Range Interpretation Comments Platelet Count (test code = 777-3) 197 140-360 [facility] HospitalNeutrophils (%) (Auto)2018-01-28 06:18:00 * Test Item Value Reference Range Interpretation Comments Neutrophils (%) (Auto) (test code = 53629-6) 58.3 38.7-80.0 [facility] HospitalLymphocytes (%) (Auto)2018-01-28 06:18:00 * Test Item Value Reference Range Interpretation Comments Lymphocytes (%) (Auto) (test code = 736-9) 31.9 18.0-39.1 [facility] HospitalMonocytes (%) (Auto)2018-01-28 06:18:00* Test Item Value Reference Range Interpretation Comments Monocytes (%) (Auto) (test code = 5905-5) 8.1 4.4-11.3 [facility] HospitalEosinophils (%) (Auto)2018-01-28 06:18:00 * Test Item Value Reference Range Interpretation Comments Eosinophils (%) (Auto) (test code = 713-8) 1.1 0.0-6.0 [facility] HospitalBasophils (%) (Auto)2018-01-28 06:18:00* Test Item Value Reference Range Interpretation Comments Basophils (%) (Auto) (test code = 706-2) 0.3 0.0-1.0 [facility] HospitalIM GRANULOCYTES %2018-01-28 06:18:00* Test Item Value Reference Range Interpretation Comments IM GRANULOCYTES % (test code = IM GRANULOCYTES %) 0.3 0.0- 1.0 [facility] HospitalNeutrophils # (Auto)2018-01-28 06:18:00* Test Item Value Reference Range Interpretation Comments Neutrophils # (Auto) (test code = 751-8) 3.8 2.1-6.9 [facility] HospitalLymphocytes # (Auto)2018-01-28 06:18:00* Test Item Value Reference Range Interpretation Comments Lymphocytes # (Auto) (test code = 02847-8) 2.1 1.0-3.2 [facility] HospitalMonocytes # (Auto)2018-01-28 06:18:00* Test Item Value Reference Range Interpretation Comments Monocytes # (Auto) (test code = 742-7) 0.5 0.2-0.8 [facility] HospitalEosinophils # (Auto)2018-01-28 06:18:00* Test Item Value Reference Range Interpretation Comments Eosinophils # (Auto) (test code = 711-2) 0.1 0.0-0.4 [facility] HospitalBasophils # (Auto)2018-01-28 06:18:00* Test Item Value Reference Range Interpretation Comments Basophils # (Auto) (test code = 704-7) 0.0 0.0-0.1 [facility] HospitalAbsolute Immature Granulocyte (auto 2018-01-28 06:18:00* Test Item Value Reference Range Interpretation Comments Absolute Immature Granulocyte (auto (navya t code = Absolute Immature Granulocyte (auto) 0.02 0-0.1 [facility] HospitalMagnesium Xrgdj4203-96-38 18:54:00* Test Item Value Reference Range Interpretation Comments Magnesium Level (test code = 16631-5) 1.7 1.3-2.1 [facility] HospitalMagnesium Mumpj2542-66-03 18:54:00* Test Item Value Reference Range Interpretation Comments Magnesium Level (test code = 76468-5) 1.7 1.3-2.1 [facility] HospitalMagnesium Hmbfe6595-18-63 18:54:00* Test Item Value Reference Range Interpretation Comments Magnesium Level (test code = 08420-1) 1.7 1.3-2.1 [facility] Suxsvhkdp7147-11-07 14:55:00* Test Item Value Reference Range Interpretation Comments Free Thyroxine (test code = 3024-7) 1.22 0.9-1.8 [facility] HospitalThyroid Stimulating Hormone (TSH) 2018-01-27 14:55:00* Test Item Value Reference Range Interpretation Comments Thyroid Stimulating Hormone (TSH) (test code = 90795-6) 0.979 0.350-4.940 [facility] Ozgzhlnbk1611-06-86 14:55:00* Test Item Value Reference Range Interpretation Comments Free Thyroxine (test code = 3024-7) 1.22 0.9-1.8 [facility] HospitalThyroid Stimulating Hormone (TSH) 2018-01-27 14:55:00* Test Item Value Reference Range Interpretation Comments Thyroid Stimulating Hormone (TSH) (test code = 73586-8) 0.979 0.350-4.940 [facility] Hcogsahcr8777-19-28 14:55:00* Test Item Value Reference Range Interpretation Comments Free Thyroxine (test code = 3024-7) 1.22 0.9-1.8 [facility] HospitalThyroid Stimulating Hormone (TSH) 2018-01-27 14:55:00* Test Item Value Reference Range Interpretation Comments Thyroid Stimulating Hormone (TSH) (test code = 65894-3) 0.979 0.350-4.940 [facility] HospitalHemoglobin A1c Eyrbdlj2330-90-60 14:33:00 * Test Item Value Reference Range Interpretation Comments Hemoglobin A1c Percent (test code = Hemoglobin A1c Percent) 10.7 4.0-7.0 H [facility] HospitalHemoglobin A1c Ydqubnz4353-71-35 14:33:00 * Test Item Value Reference Range Interpretation Comments Hemoglobin A1c Percent (test code = Hemoglobin A1c Percent) 10.7 4.0-7.0 H [facility] HospitalHemoglobin A1c Jkolnus2316-28-72 14:33:00 * Test Item Value Reference Range Interpretation Comments Hemoglobin A1c Percent (test code = Hemoglobin A1c Percent) 10.7 4.0-7.0 H [facility] HospitalUrine CAJ1721-21-57 02:00:00* Test Item Value Reference Range Interpretation Comments Urine WBC (test code = 5821-4) 11-20 0-5 H [facility] HospitalUrine NPQ7598-38-12 02:00:00* Test Item Value Reference Range Interpretation Comments Urine RBC (test code = 55479-2) 50- 0-5 H [facility] HospitalUrine Dotqhovw5764-11-81 02:00:00* Test Item Value Reference Range Interpretation Comments Urine Bacteria (test code = 61619-8) MANY NONE H [facility] HospitalUrine Epithelial Zrjdd2963-26-69 02:00:00 * Test Item Value Reference Range Interpretation Comments Urine Epithelial Cells (test code = 79444-7) FEW NONE [facility] HospitalUrine Transitional Epithelial Cells 2018-01-27 02:00:00* Test Item Value Reference Range Interpretation Comments Urine Transitional Epithelial Cells (test code = 8249-5) FEW NONE [facility] HospitalUrine AMD4447-57-09 02:00:00* Test Item Value Reference Range Interpretation Comments Urine WBC (test code = 5821-4) 11-20 0-5 H [facility] HospitalU[facility] WFV7392-19-41 02:00:00* Test Item Value Reference Range Interpretation Comments Urine RBC (test code = 63559-5) 50- 0-5 H [facility] HospitalUrine Agtmiykj9189-88-18 02:00:00* Test Item Value Reference Range Interpretation Comments Urine Bacteria (test code = 50147-3) MANY NONE H [facility] HospitalUrine Epithelial Urdmz0390-00-60 02:00:00 * Test Item Value Reference Range Interpretation Comments Urine Epithelial Cells (test code = 13311-0) FEW NONE [facility] HospitalUrine Transitional Epithelial Cells 2018-01-27 02:00:00* Test Item Value Reference Range Interpretation Comments Urine Transitional Epithelial Cells (test code = 8249-5) FEW NONE [facility] [id number] 02:00:00* Test Item Value Reference Range Interpretation Comments Urine WBC (test code = 5821-4) 11-20 0-5 H [facility] HospitalU[facility] [id number] 02:00:00* Test Item Value Reference Range Interpretation Comments Urine RBC (test code = 41477-6) 50- 0-5 H [facility] Uzittqvh2175-41-80 02:00:00* Test Item Value Reference Range Interpretation Comments Urine Bacteria (test code = 38041-9) MANY NONE H [facility] HospitalUrine Epithelial Iexlv4454-12-03 02:00:00 * Test Item Value Reference Range Interpretation Comments Urine Epithelial Cells (test code = 49622-4) FEW NONE [facility] Transitional Epithelial Cells 2018-01-27 02:00:00* Test Item Value Reference Range Interpretation Comments Urine Transitional Epithelial Cells (test code = 8249-5) FEW NONE [facility] HospitalU[facility] IHO8211-32-62 02:00:00* Test Item Value Reference Range Interpretation Comments Urine WBC (test code = 5821-4) 11-20 0-5 H [facility] HospitalU[facility] YUS3888-60-34 02:00:00* Test Item Value Reference Range Interpretation Comments Urine RBC (test code = 53379-3) 50- 0-5 H [facility] Jquzmbvn8387-76-30 02:00:00* Test Item Value Reference Range Interpretation Comments Urine Bacteria (test code = 49719-6) MANY NONE H [facility] HospitalUrine Epithelial Gptzk0916-90-90 02:00:00 * Test Item Value Reference Range Interpretation Comments Urine Epithelial Cells (test code = 44087-5) [facility] Trans[facility]helial [facility] 2018-01-27 02:00:00* Test Item Value Reference Range Interpretation Comments Urine Transitional Epithelial Cells (test code = 8249-5) FEW NONE [facility] HospitalU[facility] Transitional Epithelial Cells 2018-01-27 02:00:00* Test Item Value Reference Range Interpretation Comments Urine Transitional Epithelial Cells (test code = 8249-5) FEW NONE [facility] HospitalU[facility] Ykhuf0545-34-87 01:52:00* Test Item Value Reference Range Interpretation Comments Urine Color (test code = 5778-6) YELLOW YELLOW [facility] HospitalU[facility] Vnixsml8902-66-70 01:52:00* Test Item Value Reference Range Interpretation Comments Urine Clarity (test code = 18509-0) HAZY CLEAR [facility] Specific Ljcbtei7156-49-74 01:52:00 * Test Item Value Reference Range Interpretation Comments Urine Specific [place] (test code = 5811-5) 1.020 1.010-1.02 5 [facility] HospitalU[facility] cD8587-11-86 01:52:00* Test Item Value Reference Range Interpretation Comments Urine pH (test code = 54213-5) 6 5-7 [facility] Leukocyte Fiklaehj0538-84-82 01:52:00* Test Item Value Reference Range Interpretation Comments Urine Leukocyte Esterase (test code = 5799-2) 1+ NEGATIVE H [facility] Zdwgaui2511-40-23 01:52:00* Test Item Value Reference Range Interpretation Comments Urine Nitrite (test code = 99699-1) NEGATIVE NEGATIVE [facility] Jhrzcex7570-32-35 01:52:00* Test Item Value Reference Range Interpretation Comments Urine Protein (test code = 5804-0) 1+ NEGATIVE H [facility] HospitalU[facility] Glucose (UA)2018-01-27 01:52:00* Test Item Value Reference Range Interpretation Comments Urine Glucose (UA) (test code = 2349-9) 3+ NEGATIVE H [facility] Wanwgkv7453-25-90 01:52:00* Test Item Value Reference Range Interpretation Comments Urine Ketones (test code = 05676-5) 3+ NEGATIVE H [facility] Dudmtblvvlqe9209-18-28 01:52:00* Test Item Value Reference Range Interpretation Comments Urine Urobilinogen (test code = 05875-9) 0.2 0.2-1 [facility] Huxnfthjf9517-88-03 01:52:00* Test Item Value Reference Range Interpretation Comments Urine Bilirubin (test code = 1978-6) NEGATIVE NEGATIVE [facility] Dzxys6267-41-67 01:52:00* Test Item Value Reference Range Interpretation Comments Urine Blood (test code = 14265-9) 3+ NEGATIVE H [facility] HospitalU[facility] Nxzga7249-02-74 01:52:00* Test Item Value Reference Range Interpretation Comments Urine Color (test code = 5778-6) YELLOW YELLOW [facility] Sqwrplp3471-98-48 01:52:00* Test Item Value Reference Range Interpretation Comments Urine Clarity (test code = 25543-4) HAZY CLEAR [facility] HospitalU[facility] Specific Aqfgeuj4161-92-91 01:52:00 * Test Item Value Reference Range Interpretation Comments Urine Specific [place] (test code = 5811-5) 1.020 1.010-1.02 5 [facility] eG2428-19-62 01:52:00* Test Item Value Reference Range Interpretation Comments Urine pH (test code = 35108-6) 6 5-7 [facility] Leukocyte Wynqjtcc2784-78-69 01:52:00* Test Item Value Reference Range Interpretation Comments Urine Leukocyte Esterase (test code = 5799-2) 1+ NEGATIVE H [facility] Rvpjdsl6126-81-47 01:52:00* Test Item Value Reference Range Interpretation Comments Urine Nitrite (test code = 70235-9) NEGATIVE NEGATIVE [facility] Izpxpzb5914-44-67 01:52:00* Test Item Value Reference Range Interpretation Comments Urine Protein (test code = 5804-0) 1+ NEGATIVE H [facility] HospitalU[facility] Glucose (UA)2018-01-27 01:52:00* Test Item Value Reference Range Interpretation Comments Urine Glucose (UA) (test code = 2349-9) 3+ NEGATIVE H [facility] HospitalU[facility] Tteorel6787-44-62 01:52:00* Test Item Value Reference Range Interpretation Comments Urine Ketones (test code = 68482-0) 3+ NEGATIVE H [facility] HospitalU[facility] Ijmuqtvouunz4868-41-70 01:52:00* Test Item Value Reference Range Interpretation Comments Urine Urobilinogen (test code = 50447-3) 0.2 0.2-1 [facility] HospitalU[facility] Ugafdnfib9276-21-86 01:52:00* Test Item Value Reference Range Interpretation Comments Urine Bilirubin (test code = 1978-6) NEGATIVE NEGATIVE [facility] Ueani0813-42-54 01:52:00* Test Item Value Reference Range Interpretation Comments Urine Blood (test code = 67623-7) 3+ NEGATIVE H [facility] Ebcdr0484-57-82 01:52:00* Test Item Value Reference Range Interpretation Comments Urine Color (test code = 5778-6) YELLOW YELLOW [facility] Kpvtfgz9648-94-40 01:52:00* Test Item Value Reference Range Interpretation Comments Urine Clarity (test code = 35928-4) HAZY CLEAR [facility] Specific Lxbabww7756-62-98 01:52:00 * Test Item Value Reference Range Interpretation Comments Urine Specific [place] (test code = 5811-5) 1.020 1.010-1.02 5 [facility] kB0127-45-55 01:52:00* Test Item Value Reference Range Interpretation Comments Urine pH (test code = 69789-0) 6 5-7 [facility] Leukocyte Xkjmlwoz0293-63-30 01:52:00* Test Item Value Reference Range Interpretation Comments Urine Leukocyte Esterase (test code = 5799-2) 1+ NEGATIVE H [facility] Smqqdxy5940-54-73 01:52:00* Test Item Value Reference Range Interpretation Comments Urine Nitrite (test code = 74161-0) NEGATIVE NEGATIVE [facility] Jzwbnrw1512-00-53 01:52:00* Test Item Value Reference Range Interpretation Comments Urine Protein (test code = 5804-0) 1+ NEGATIVE H [facility] HospitalU[facility] Glucose (UA)2018-01-27 01:52:00* Test Item Value Reference Range Interpretation Comments Urine Glucose (UA) (test code = 2349-9) 3+ NEGATIVE H [facility] Dmbobcg7610-74-16 01:52:00* Test Item Value Reference Range Interpretation Comments Urine Ketones (test code = 99886-9) 3+ NEGATIVE H [facility] Mhfllhqcuydt0494-04-34 01:52:00* Test Item Value Reference Range Interpretation Comments Urine Urobilinogen (test code = 35072-8) 0.2 0.2-1 [facility] Fmgnmmwds8218-26-37 01:52:00* Test Item Value Reference Range Interpretation Comments Urine Bilirubin (test code = 1978-6) NEGATIVE NEGATIVE [facility] Rkehr4975-87-91 01:52:00* Test Item Value Reference Range Interpretation Comments Urine Blood (test code = 45137-9) 3+ NEGATIVE H [facility] Gxwje6376-64-93 01:52:00* Test Item Value Reference Range Interpretation Comments Urine Color (test code = 5778-6) YELLOW YELLOW [facility] HospitalU[facility] Hihubum6997-10-83 01:52:00* Test Item Value Reference Range Interpretation Comments Urine Clarity (test code = 01701-6) HAZY CLEAR [facility] Specific Guwbhgh7779-09-37 01:52:00 * Test Item Value Reference Range Interpretation Comments Urine Specific [place] (test code = 5811-5) 1.020 1.010-1.02 5 [facility] rI6585-12-57 01:52:00* Test Item Value Reference Range Interpretation Comments Urine pH (test code = 04609-3) 6 5-7 [facility] Leukocyte Rmpmnzzx5542-42-79 01:52:00* Test Item Value Reference Range Interpretation Comments Urine Leukocyte Esterase (test code = 5799-2) 1+ NEGATIVE H [facility] HospitalU[facility] Rlmvzcq2869-04-94 01:52:00* Test Item Value Reference Range Interpretation Comments Urine Nitrite (test code = 02475-3) NEGATIVE NEGATIVE [facility] Sjcgwat2516-68-27 01:52:00* Test Item Value Reference Range Interpretation Comments Urine Protein (test code = 5804-0) 1+ NEGATIVE H [facility] HospitalU[facility] Glucose (UA)2018-01-27 01:52:00* Test Item Value Reference Range Interpretation Comments Urine Glucose (UA) (test code = 2349-9) 3+ NEGATIVE H [facility] HospitalU[facility] Pfndmfn0317-50-63 01:52:00* Test Item Value Reference Range Interpretation Comments Urine Ketones (test code = 07334-4) 3+ NEGATIVE H [facility] Uhnruzpibqgf0414-39-98 01:52:00* Test Item Value Reference Range Interpretation Comments Urine Urobilinogen (test code = 02155-0) 0.2 0.2-1 [facility] Clkfacteq7369-43-98 01:52:00* Test Item Value Reference Range Interpretation Comments Urine Bilirubin (test code = 1978-6) NEGATIVE NEGATIVE [facility] Ldydg1572-43-02 01:52:00* Test Item Value Reference Range Interpretation Comments Urine Blood (test code = 18024-0) 3+ NEGATIVE H [facility] HospitalCreatine Kinase SL9014-25-93 20:15:00* Test Item Value Reference Range Interpretation Comments Creatine Kinase MB (test code = 29971-5) 0.60 0-5.0 [facility] HospitalTroponin E4172-32-07 20:15:00* Test Item Value Reference Range Interpretation Comments Troponin I (test code = [id number]) 0.009 0-0.300 [facility] HospitalCreatine Kinase ME6769-16-19 20:15:00* Test Item Value Reference Range Interpretation Comments Creatine Kinase MB (test code = 91739-5) 0.60 0-5.0 [facility] HospitalTroponin D5133-27-70 20:15:00* Test Item Value Reference Range Interpretation Comments Troponin I (test code = ISV5433) 0.009 0-0.300 [facility] HospitalCreatine Kinase AZ1722-73-96 20:15:00* Test Item Value Reference Range Interpretation Comments Creatine Kinase MB (test code = 21450-1) 0.60 0-5.0 [facility] HospitalTropon U0056-83-02 20:15:00* Test Item Value Reference Range Interpretation Comments Troponin I (test code = KKV5293) 0.009 0-0.300 [facility] HospitalCreatine Kinase KZ4964-22-84 20:15:00* Test Item Value Reference Range Interpretation Comments Creatine Kinase MB (test code = 48632-3) 0.60 0-5.0 [facility] HospitalTroponin U5324-40-10 20:15:00* Test Item Value Reference Range Interpretation Comments Troponin I (test code = ZGK2639) 0.009 0-0.300 [facility] HospitalCreatine Kinase YC1197-71-90 20:15:00* Test Item Value Reference Range Interpretation Comments Creatine Kinase MB (test code = 68583-7) 0.60 0-5.0 [facility] HospitalTrChris [place] [address]75C6644-04-21 20:15:00* Test Item Value Reference Range Interpretation Comments Troponin I (test code = VPG7530) 0.009 0-0.300 [facility] HospitalCreatine Yajezb0489-48-97 20:11:00* Test Item Value Reference Range Interpretation Comments Creatine Kinase (test code = 2157-6) 37 30-200 [facility] HospitalAmylase Raymg6746-53-22 20:11:00* Test Item Value Reference Range Interpretation Comments Amylase Level (test code = 1798-8) 20 25-125 L [facility] HospitalLipase2018-03-18 20:11:00* Test Item Value Reference Range Interpretation Comments Lipase (test code = 3040-3) -4 8-78 L [facility] HospitalCreatine Htgvoq4818-91-40 20:11:00* Test Item Value Reference Range Interpretation Comments Creatine Kinase (test code = 2157-6) 37 30-200 [facility] HospitalAmylase Xudlz6733-96-06 20:11:00* Test Item Value Reference Range Interpretation Comments Amylase Level (test code = 1798-8) 20 25-125 L [facility] HospitalLipase2018-03-18 20:11:00* Test Item Value Reference Range Interpretation Comments Lipase (test code = 3040-3) -4 8-78 L [facility] HospitalCreatine Lvujae5418-52-31 20:11:00* Test Item Value Reference Range Interpretation Comments Creatine Kinase (test code = 2157-6) 37 30-200 [facility] HospitalAmylase Dolcr9088-08-89 20:11:00* Test Item Value Reference Range Interpretation Comments Amylase Level (test code = 1798-8) 20 25-125 L [facility] HospitalLipase2018-03-18 20:11:00* Test Item Value Reference Range Interpretation Comments Lipase (test code = 3040-3) -4 8-78 L [facility] HospitalCreatine Oysynn3700-43-01 20:11:00* Test Item Value Reference Range Interpretation Comments Creatine Kinase (test code = 2157-6) 37 30-200 [facility] HospitalAmylase Omzeu8376-94-31 20:11:00* Test Item Value Reference Range Interpretation Comments Amylase Level (test code = 1798-8) 20 25-125 L [facility] HospitalLipase2018-03-18 20:11:00* Test Item Value Reference Range Interpretation Comments Lipase (test code = 3040-3) -4 8-78 L [facility] HospitalCreatine Hghvaq0902-52-86 20:11:00* Test Item Value Reference Range Interpretation Comments Creatine Kinase (test code = 2157-6) 37 30-200 [facility] HospitalAmylase Tbexk3278-59-18 20:11:00* Test Item Value Reference Range Interpretation Comments Amylase Level (test code = 1798-8) 20 25-125 L [facility] HospitalLipase2018-03-18 20:11:00* Test Item Value Reference Range Interpretation Comments Lipase (test code = 3040-3) -4 8-78 L [facility] HospitalBlood Eccdgpn9083-51-16 22:19:00* Test Item Value Reference Range Interpretation Comments Blood Culture (test code = 47507749) NO GROWTH AFTER 5 DAYS, FINAL REPORT [facility] Wjmcvjy1371-17-81 22:19:00* Test Item Value Reference Range Interpretation Comments Blood Culture (test code = 46527214) NO GROWTH AFTER 5 DAYS, FINAL REPORT [facility] Vydphqu8762-61-82 22:19:00* Test Item Value Reference Range Interpretation Comments Blood Culture (test code = 19231114) NO GROWTH AFTER 5 DAYS, FINAL REPORT [facility] Vvqdjuw9693-46-99 22:19:00* Test Item Value Reference Range Interpretation Comments Blood Culture (test code = 16477683) NO GROWTH AFTER 5 DAYS, FINAL REPORT [facility] Rgdtveb5911-91-37 22:19:00* Test Item Value Reference Range Interpretation Comments Blood Culture (test code = 37077496) NO GROWTH AFTER 5 DAYS, FINAL [facility]PORT [facility] Kvrghojp1279-92-28 10:18:00* Test Item Value Reference Range Interpretation Comments Platelet Estimate (test code = 74751-4) ADEQUATE [facility] Qqbiaup8946-20-15 10:18:00* Test Item Value Reference Range Interpretation Comments Platelet Morphology Comment (test code = 71794-0) NORMAL [facility] 10:18:00* Test Item Value Reference Range Interpretation Comments Anisocytosis (test code = 702-1) SLIGHT [facility]2018-[facility] 10:18:00* Test Item Value Reference Range Interpretation Comments Microcytosis (test code = 741-9) X [facility] Isvkwpr5990-51-02 10:18:00* Test Item Value Reference Range Interpretation Comments Red Cell Morphology Comment (test code = 6742-1) NORMAL [facility] Wrizwlks7406-74-34 10:18:00* Test Item Value Reference Range Interpretation Comments Platelet Estimate (test code = 31004-2) ADEQUATE [facility] Xgmeojx3771-98-78 10:18:00* Test Item Value Reference Range Interpretation Comments Platelet Morphology Comment (test code = 72102-3) NORMAL [facility] 10:18:00* Test Item Value Reference Range Interpretation Comments Anisocytosis (test code = 702-1) SLIGHT [facility]2018-[facility]-01 10:18:00* Test Item Value Reference Range Interpretation Comments Microcytosis (test code = 741-9) X [facility] Vlpdvmw2891-33-94 10:18:00* Test Item Value Reference Range Interpretation Comments Red Cell Morphology Comment (test code = 6742-1) NORMAL [facility] Qrjbaodr9197-54-36 10:18:00* Test Item Value Reference Range Interpretation Comments Platelet Estimate (test code = 47413-1) [facility]QU[facility] Ricfyni7710-79-91 10:18:00* Test Item Value Reference Range Interpretation Comments Platelet Morphology Comment (test code = 34045-8) NORMAL [facility] 10:18:00* Test Item Value Reference Range Interpretation Comments Anisocytosis (test code = 702-1) SLIGHT [facility]2018-01-01 10:18:00* Test Item Value Reference Range Interpretation Comments Microcytosis (test code = 741-9) [facility] Fbczjtx3932-67-39 10:18:00* Test Item Value Reference Range Interpretation Comments Red Cell Morphology Comment (test code = 6742-1) NORMAL [facility] Teluigxm9688-95-32 10:18:00* Test Item Value Reference Range Interpretation Comments Platelet Estimate (test code = 02921-4) ADEQUATE [facility] Maciwqf4085-23-55 10:18:00* Test Item Value Reference Range Interpretation Comments Platelet Morphology Comment (test code = 23420-9) NORMAL [facility]2018-[facility]-01 10:18:00* Test Item Value Reference Range Interpretation Comments Anisocytosis (test code = 702-1) SLIGHT [facility]2018-01-01 10:18:00* Test Item Value Reference Range Interpretation Comments Microcytosis (test code = 741-9) X [facility] Dbxlvqs5012-81-56 10:18:00* Test Item Value Reference Range Interpretation Comments Red Cell Morphology Comment (test code = 6742-1) NORMAL [facility]2018-01-01 10:18:00* Test Item Value Reference Range Interpretation Comments Anisocytosis (test code = 702-1) SLIGHT [facility]2018-01-01 10:18:00* Test Item Value Reference Range Interpretation Comments Microcytosis (test code = 741-9) X [facility] Blood [id number] 22:27:00* Test Item Value Reference Range Interpretation Comments Arterial Blood pH (test code = 2744-1) 7.01 7.31-7.41 LL Results called to MD JACOB at 2221 on 11/08/17 by Huan Champion. RB OK.[facility] Hospital[facility] Blood Partial Pressure AQ39006-88-44 22:27:00* Test Item Value Reference Range Interpretation Comments Arterial Blood Partial Pressure CO2 (test code = 2018-8) 11 41-51 L [facility] Partial Pressure O2 2017-11-08 22:27:00* Test Item Value Reference Range Interpretation Comments Arterial Blood Partial Pressure O2 (test code = 2018-8) 138 80-105 H [facility] Blood [id number] 22:27:00* Test Item Value Reference Range Interpretation Comments Arterial Blood HCO3 (test code = 1960-4) 3 23-28 L [facility] Base Hacews5921-59-67 22:27:00* Test Item Value Reference Range Interpretation Comments Arterial Blood Base Excess (test code = 1925-7) -28.0 -2-3 L [facility] Oxygen Saturation 2017-11-08 22:27:00* Test Item Value Reference Range Interpretation Comments Arterial Blood Oxygen Saturation (test code = 2708-6) 97.0 95-98 [facility] Blood [id number] 22:27:00* Test Item Value Reference Range Interpretation Comments Arterial Blood pH (test code = 2744-1) 7.01 7.31-7.41 LL Results called to MD JACOB at 2221 on 11/08/17 by Huan Champion. RB OK.[facility] Blood Partial Pressure [id number] 22:27:00* Test Item Value Reference Range Interpretation Comments Arterial Blood Partial Pressure CO2 (test code = 2018-) 11 41-51 L [facility] Partial Pressure O2 2017-11-08 22:27:00* Test Item Value Reference Range Interpretation Comments Arterial Blood Partial Pressure O2 (test code = 2019-06) 138 80-105 H [facility] Blood [id number] 22:27:00* Test Item Value Reference Range Interpretation Comments Arterial Blood HCO3 (test code = 1960-4) 3 23-28 L [facility] Base Pvtius4254-72-98 22:27:00* Test Item Value Reference Range Interpretation Comments Arterial Blood Base Excess (test code = 1925-7) -28.0 -2-3 L [facility] Oxygen Saturation 2017-11-08 22:27:00* Test Item Value Reference Range Interpretation Comments Arterial Blood Oxygen Saturation (test code = 2708-6) 97.0 95-98 [facility] [id number] 22:27:00* Test Item Value Reference Range Interpretation Comments Arterial Blood pH (test code = 2744-1) 7.01 7.31-7.41 LL Results called to MD JACOB at 2221 on 11/08/17 by Huan Champion. RB OK.[facility] Blood Partial Pressure [id number] 22:27:00* Test Item Value Reference Range Interpretation Comments Arterial Blood Partial Pressure CO2 (test code = 2018-8) 11 41-51 L [facility] Partial Pressure O2 2017-11-08 22:27:00* Test Item Value Reference Range Interpretation Comments Arterial Blood Partial Pressure O2 (test code = 2018-) 138 80-105 H [facility] Blood [id number] 22:27:00* Test Item Value Reference Range Interpretation Comments Arterial Blood HCO3 (test code = 1960-4) 3 23-28 L [facility] Blood Base Izoouq0202-57-61 22:27:00* Test Item Value Reference Range Interpretation Comments Arterial Blood Base Excess (test code = 1925-7) -28.0 -2-3 L [facility] Oxygen Saturation 2017-11-08 22:27:00* Test Item Value Reference Range Interpretation Comments Arterial Blood Oxygen Saturation (test code = 2708-6) 97.0 95-98 [facility] Blood [id number] 22:27:00* Test Item Value Reference Range Interpretation Comments Arterial Blood pH (test code = 2744-1) 7.01 7.31-7.41 LL Results called to MD JACOB at 2221 on 11/08/17 by Huan Champion. RB OK.[facility]Ar[facility] Blood Partial Pressure [id number] 22:27:00* Test Item Value Reference Range Interpretation Comments Arterial Blood Partial Pressure CO2 (test code = 2019-06) 11 41-51 L [facility] Partial Pressure O2 2017-11-08 22:27:00* Test Item Value Reference Range Interpretation Comments Arterial Blood Partial Pressure O2 (test code = 2018-) 138 80-105 H [facility] Blood [id number] 22:27:00* Test Item Value Reference Range Interpretation Comments Arterial Blood HCO3 (test code = 1960-4) 3 23-28 [facility] Axoylm5898-42-26 22:27:00* Test Item Value Reference Range Interpretation Comments Arterial Blood Base Excess (test code = 1925-7) -28.0 -2-3 L [facility] Oxygen Saturation 2017-11-08 22:27:00* Test Item Value Reference Range Interpretation Comments Arterial Blood Oxygen Saturation (test code = 2708-6) 97.0 95-98 [facility] [id number] 22:27:00* Test Item Value Reference Range Interpretation Comments Arterial Blood pH (test code = 2744-1) 7.01 7.31-7.41 LL Results called to MD JACOB at 2221 on 11/08/17 by Huan Champion. RB OK.[facility] Partial Pressure [id number] 22:27:00* Test Item Value Reference Range Interpretation Comments Arterial Blood Partial Pressure CO2 (test code = 2019-06) 11 41-51 L [facility] Partial Pressure O2 2017-11-08 22:27:00* Test Item Value Reference Range Interpretation Comments Arterial Blood Partial Pressure O2 (test code = 2019-06) 138 80-105 H [facility] Blood [id number] 22:27:00* Test Item Value Reference Range Interpretation Comments Arterial Blood HCO3 (test code = 1960-4) 3 23-28 L [facility] Base Tidtew4354-26-03 22:27:00* Test Item Value Reference Range Interpretation Comments Arterial Blood Base Excess (test code = 1925-7) -28.0 -2-3 L [facility] Oxygen Saturation 2017-11-08 22:27:00* Test Item Value Reference Range Interpretation Comments Arterial Blood Oxygen Saturation (test code = 2708-6) 97.0 95-98 [facility] HospitalA[facility] bacterial blood mtxvytp2135-93-97 12:23:00Comment Bed:4 Only Aerobic Pediatric Blood Culture Bottle ReceivedNo growth in 5 days.^No growth in 5 days.^LBlood anaerobic unfnckt3663-18-86 12:23:00Comment Bed:4 Only Aerobic Pediatric Blood Culture Bottle ReceivedNot Done^Not Done^L^NDPotassium qtdxccafmrr6028-05-29 21:27:00* Test Item Value Reference Range Interpretation Comments Potassium measurement (test code = GNX1146) 3.6 meq/L 3.6-5.0 Primary Language EnglishGlucose blood aiqzwiqcybx6738-54-46 20:54:00* Test Item Value Reference Range Interpretation Comments Glucose blood fingerstick (test code = CVR9456) 174 mg/dL 65-120 H Potassium ouresibzgjm3171-57-39 18:55:00* Test Item Value Reference Range Interpretation Comments Potassium measurement (test code = DQH2533) 2.8 meq/L 3.6-5.0 LL Repeated, Pt history, Broadcast at 1855 by Nimaya Primary Language EnglishGlucose blood cdptzcwdmkw5001-78-97 16:12:00* Test Item Value Reference Range Interpretation Comments Glucose blood fingerstick (test code = DBS5028) 184 mg/dL 65-120 H Glucose blood ewyktoymzxx5193-39-92 12:15:00* Test Item Value Reference Range Interpretation Comments Glucose blood fingerstick (test code = DZB7815) 191 mg/dL 65-120 H Glucose blood gzdssvlyirt5069-85-48 12:15:00* Test Item Value Reference Range Interpretation Comments Glucose blood fingerstick (test code = EDL9023) 232 mg/dL 65-120 H Glucose blood nmxrzsmrnxy9488-73-19 08:04:00* Test Item Value Reference Range Interpretation Comments Glucose blood fingerstick (test code = HEL4467) 94 mg/dL 65-120 Glucose blood qkpbdqhoace3662-70-01 08:04:00* Test Item Value Reference Range Interpretation Comments Glucose blood fingerstick (test code = TRO3370) 60 mg/dL 65-120 L Potassium uvxgjtciqha9445-15-73 07:24:00* Test Item Value Reference Range Interpretation Comments Potassium measurement (test code = FKU7242) 2.6 meq/L 3.6-5.0 LL Repeated, Pt history, Broadcast at 0724 by [facility] Primary Language EnglishComplete blood count (CBC) with automated white blood cell (WBC) ggveunnwmawb2969-37-01 04:42:00* Test Item Value Reference Range Interpretation Comments White blood cell count (test code = MJW0471) 5.8 4.3-10.9 Blood erythrocytes count (number/volume) (test code = 81698- 1) 4.62 M/ul 4.33-5.43 Hemoglobin measurement (test code = SUZ3259) 15.1 g/dL 13.6-17.9 Blood hematocrit (volume fraction) (test code = 72476-0) 41.9 % 39.6-49.0 MCV (test code = 71923-8) 90.6 fL 80-100 MCH (test code = 18564-6) 32.7 pg 27.0-35.0 MCHC (test code = MCHC) 36.1 g/dL 32.0-36.0 H Platelets (test code = PLT) 191 152-406 Red Cell Distribution Width (test code = RDW) 13.1 % 12.1-15. 2 Blood platelet mean volume (test code = 33924-0) 7.6 fL 7.6-1 1.3 Neutrophils % (test code = SID%) 49.5 % 41.7-73.7 Lymphocytes/leuk NFr Bld (test code = 65518-3) 35.3 % 15.3-44 .8 Monocyte percentage (test code = 5905-5) 14.4 % 3.3-12.3 H Eosinophil % (test code = 713-8) 0.2 % 0-4.4 Basophil % (test code = 31880-9) 0.6 % 0-1.3 Absolute neutrophil count (test code = 751-8) 2.9 1.8-8.0 Absolute lymphocyte count (test code = 67992-8) 2.1 0.7-4. 9 Absolute monocyte count (test code = 742-7) 0.8 0.1-1.3 Absolute Eosinophils (test code = EOA) 0.0 0-0.5 Absolute Basophils (test code = BASA) 0.0 0-0.5 Primary Language [facility] Metabolic Ouwti9061-64-60 04:33:00* Test Item Value Reference Range Interpretation Comments Sodium level (test code = RKN5133) 132 meq/L 135-145 L 2.6Repeated & Called to ISA FRANCOIS RN on 06/20/17 at 0432 by SYDNEE Was there 100% Readback? Y Chloride measurement (test code = VKH2304) 91 meq/L 101-111 L Bicarbonate (test code = CO2) 33 meq/L 21-31 H Glucose measurement (test code = CBH2439) 64 mg/dL 65-120 L ADA Clinical Practice Recommendation: <100 mg/dl = Normal Fasting Glucose BUN Bld-mCnc (test code = 6299-2) 5 mg/dL 6-20 L Creatinine measurement (test code = YVE7751) 0.41 mg/dL 0.61-1.24 L The creatinine method used has been calibrated to be traceable to Isotope dilution Mass Spectrometry (IDMS). For more information: www.nkdep.nih.gov Estimated glomerular filtration rate (GFR) determinati on (test code = 76848-5) >90 mL =/>90 FOR CHRONIC KIDNEY D ISEASE: GFR STAGE DESCRIPTION =/>90 STAGE 1 NORMAL--OR-- MINIMAL KIDNEY DAMAGE WITH NORMAL GFR 60-89 STAGE 2 MILD DECREASE IN GFR 30-59 STAGE 3 MODERATE DECREASE IN GFR 15-29 STAGE 4 SEVERE DECREASE IN GFR <15 STAGE 5 KIDNEY FAILURE The Glomerular Filtration Rate (GFR) has been calculated using the IDMS-Traceable MDRD Study Equation. Calcium Level (test code = CA) 8.1 mg/dL 8.5-10.5 L Primary Language Syriac Primary Language EnglishMagnesium adwixbdkvdd2212-73-61 04:33:00* Test Item Value Reference Range Interpretation Comments Magnesium measurement (test code = 15900-1) 1.9 mg/dL 1.8-2.5 Primary Language Syri[place] Primary Language EnglishPotassium alutjavirnr7401-96-23 22:08:00* Test Item Value Reference Range Interpretation Comments Potassium measurement (test code = XYU2072) 2.8 meq/L 3.6-5.0 LL Repeated & Called to ISA FRANCOIS RN on 06/19/17 at 2208 by REBECCA Was there 100% Readback? Y Primary Language EnglishGlucose blood jfenjbooetl7596-80-16 20:02:00* Test Item Value Reference Range Interpretation Comments Glucose blood fingerstick (test code = EHZ7869) 255 mg/dL 65-120 H Glucose blood fxahsbuyqnb2726-73-28 19:03:00* Test Item Value Reference Range Interpretation Comments Glucose blood fingerstick (test code = XXO9498) 297 mg/dL 65-120 H Basic Metabolic Snqjd1241-03-42 13:07:00* Test Item Value Reference Range Interpretation Comments Sodium level (test code = UXR9799) 126 meq/L 135-145 L 3.3 Chloride measurement (test code = KBO0308) 92 meq/L 101-111 L Bicarbonate (test code = CO2) 21 meq/L 21-31 Glucose measurement (test code = PRL0791) 311 mg/dL 65-120 H ADA Clinical Practice Recommendation: <100 mg/dl = Normal Fasting Glucose BUN Bld-mCnc (test code = 6299-2) 9 mg/dL 6-20 Creatinine measurement (test code = TXI8767) 0.60 mg/dL 0.61-1.24 L The creatinine method used has been calibrated to be traceable to Isotope dilution Mass Spectrometry (IDMS). For more information: www.nkdep.nih.gov Estimated glomerular filtration rate (GFR) determinati on (test code = 47363-8) >90 mL =/>90 FOR CHRONIC KIDNEY D ISEASE: GFR STAGE DESCRIPTION =/>90 STAGE 1 NORMAL--OR-- MINIMAL KIDNEY DAMAGE WITH NORMAL GFR 60-89 STAGE 2 MILD DECREASE IN GFR 30-59 STAGE 3 MODERATE DECREASE IN GFR 15-29 STAGE 4 SEVERE DECREASE IN GFR <15 STAGE 5 KIDNEY FAILURE The Glomerular Filtration Rate (GFR) has been calculated using the IDMS-Traceable MDRD Study Equation. Calcium Level (test code = CA) 8.2 mg/dL 8.5-10.5 L Primary Language EnglishGlucose blood aeoiklvlplb5872-12-90 11:57:00* Test Item Value Reference Range Interpretation Comments Glucose blood fingerstick (test code = TWH2206) 265 mg/dL 65-120 H Glucose blood hkzeaphhcxc8063-65-23 11:57:00* Test Item Value Reference Range Interpretation Comments Glucose blood fingerstick (test code = YJA0194) 142 mg/dL 65-120 H Hemoglobin A1c rbgxsevycbi0839-63-93 09:13:00* Test Item Value Reference Range Interpretation Comments Hemoglobin A1c measurement (test code = 10603-9) 12.1 % 4-6.0 H Primary Language EnglishLipid ndnbuev1596-93-22 06:06:00* Test Item Value Reference Range Interpretation Comments Cholesterol measurement (test code = VWT9795) 185 mg/dL <200 51 HDL Cholesterol (test code = HDL) 38 mg/dL 27-67 Serum or plasma cholesterol in LDL measu rement by calculation (mass/volume) (test code = 80540-8) 137 <130 H This LDL i s a calculated result; a more accurate analysis can be performed using the direct LDL methodology. Total cholesterol/cholesterol in HDL (percentile) (test code = 9322 -9) 4.87 LIPID RISK RATIOS: 1/2 AVERAGE AVERAGE 2X AVERAGE 3X AVERAGE ------- MALE 3.43 4.97 9.55 23.39 FEMALE 3.27 4.44 7.05 11.04 Primary Language EnglishAcetone Mocet1723-92-34 06:06:00* Test Item Value Reference Range Interpretation Comments Acetone Level (test code = ACET) SMALL NEG AA Primary Language EnglishMagnesium wuawmtqmdyr8416-55-85 06:06:00* Test Item Value Reference Range Interpretation Comments Magnesium measurement (test code = 98520-0) 2.0 mg/dL 1.8-2.5 Primary Language EnglishThyroid Stimulating Yzblmyo7070-71-37 06:06:00* Test Item Value Reference Range Interpretation Comments Thyroid Stimulating Hormone (test code = TSH) 1.11 [iU]/L 0.34-5.6 0 Primary Language EnglishArterial blood gas bxfhpsfpxvd7310-13-81 05:35:00* Test Item Value Reference Range Interpretation Comments Blood gas pH assay (test code = 19254-1) 7.43 7.35-7.45 +ID,;RBA STICK;21% FIO2@Other Dr: Repeated & Called to TRACEY MONROE on 06/19/17 at 0535 by DE Was there 100% Readback? Y Blood partial pressure of carbon dioxide measurement ( test code = 76166-2) 29.8 mm[Hg] 35-45 L Blood partial pressure of oxygen measurement (test code = 11 556-8) 110.0 mm[Hg] 75-100 H Blood Gas HCO3 (test code = ABGHCO3) 19.2 mmol/L 22-28 L Blood base excess determination (test code = 1927-3) -4.4 mmol/L Arterial blood oxygen saturation measurement (test code = 27 08-6) 98.4 % 92-98.5 Arterial blood fractional oxyhemoglobin (test code = 2714-4) 95.3 % 94-97 Arterial blood carboxyhemoglobin measurement (test code = 2030-5) 1 .6 % 0-1.5 H Blood Gas Methemoglobin (test code = ABGMETHB) 1.6 % 0-1.5 H Blood Gas THB (test code = ABGTHB) 15.5 g/dL 12-18 Blood Gas Inspired Oxygen (test code = ABGFIO2) 21.0 % Complete blood count (CBC) with automated white blood cell (WBC) differential 2017-06-19 05:34:00* Test Item Value Reference Range Interpretation Comments White blood cell count (test code = XHZ2237) 7.7 4.3-10.9 Blood erythrocytes count (number/volume) (test code = 30748- 1) 4.74 M/ul 4.33-5.43 Hemoglobin measurement (test code = CYL2413) 15.7 g/dL 13.6-17.9 Blood hematocrit (volume fraction) (test code = 74037-9) 43.7 % 39.6-49.0 MCV (test code = 88122-9) 92.2 fL 80-100 MCH (test code = 17686-4) 33.1 pg 27.0-35.0 MCHC (test code = MCHC) 35.9 g/dL 32.0-36.0 Platelets (test code = PLT) 227 152-406 Red Cell Distribution Width (test code = RDW) 12.9 % 12.1-15. 2 Blood platelet mean volume (test code = 18399-9) 7.7 fL 7.6-1 1.3 Neutrophils % (test code = SID%) 62.1 % 41.7-73.7 Lymphocytes/leuk NFr Bld (test code = 41929-4) 24.1 % 15.3-44 .8 Monocyte percentage (test code = 5905-5) 13.2 % 3.3-12.3 H Eosinophil % (test code = 713-8) 0.2 % 0-4.4 Basophil % (test code = 55273-4) 0.4 % 0-1.3 Absolute neutrophil count (test code = 751-8) 4.8 1.8-8.0 Absolute lymphocyte count (test code = 12719-2) 1.8 0.7-4. 9 Absolute monocyte count (test code = 742-7) 1.0 0.1-1.3 Absolute Eosinophils (test code = EOA) 0.0 0-0.5 Absolute Basophils (test code = BASA) 0.0 0-0.5 Primary Language [facility] Metabolic Ptdho1265-21-33 02:50:00* Test Item Value Reference Range Interpretation Comments Sodium level (test code = CPJ1596) 127 meq/L 135-145 L 2.5Repeated & Called to WU ALANIS RN on 06/19/17 at 0250 by JUAN DANIELCH1 Was there 100% Readback? Y Chloride measurement (test code = ELX6278) 98 meq/L 101-111 L Bicarbonate (test code = CO2) 20 meq/L 21-31 L Glucose measurement (test code = LRH5494) 158 mg/dL 65-120 H ADA Clinical Practice Recommendation: <100 mg/dl = Normal Fasting Glucose BUN Bld-mCnc (test code = 6299-2) 12 mg/dL 6-20 Creatinine measurement (test code = PAP5316) 0.75 mg/dL 0.61-1.24 The creatinine method used has been calibrated to be traceable to Isotope dilution Mass Spectrometry (IDMS). For more information: www.nkdep.nih.gov Estimated glomerular filtration rate (GFR) determinati on (test code = 96723-6) >90 mL =/>90 FOR CHRONIC KIDNEY D ISEASE: GFR STAGE DESCRIPTION =/>90 STAGE 1 NORMAL--OR-- MINIMAL KIDNEY DAMAGE WITH NORMAL GFR 60-89 STAGE 2 MILD DECREASE IN GFR 30-59 STAGE 3 MODERATE DECREASE IN GFR 15-29 STAGE 4 SEVERE DECREASE IN GFR <15 STAGE 5 KIDNEY FAILURE The Glomerular Filtration Rate (GFR) has been calculated using the IDMS-Traceable MDRD Study Equation. Calcium Level (test code = CA) 7.8 mg/dL 8.5-10.5 L Primary Language EnglishUrine drug cniwkf7795-54-81 21:35:00* Test Item Value Reference Range Interpretation Comments Phencyclidine, Urine (test code = PCP) NEGATIVE Benzodiazepines (test code = BZO) NEGATIVE Urine cocaine detection by screening method (test code = 68151-5) N egative Amphetamines,Urine (test code = AMP) NEGATIVE Urine frdox-5-gqxzevjojoswxvwmoxij (THC) measurement ( test code = AUR5666) NEGATIVE Urine opiates detection (test code = 3879-4) Negative Barbiturates (test code = BAR) NEGATIVE Oxycodone, Urine (test code = OXY) NEGATIVE Urine methylenedioxymethamphetamine (MDMA) detection ( test code = 87077-6) Negative This urine was quali tatively tested for the following drugs at the cut-off levels listed: DRUG CUT-OFF LEVEL ---- PHENCYCLIDINE 25 ng/mL BENZODIAZEPINES 200 ng/mL COCAINE 300 ng/mL AMPHETAMINES 1000 ng/mL TETRAHYDROCANNABINOL 50 ng/mL OPIATES 2000 ng/mL BARBITURATES 200 ng/mL OXYCODONE 300 ng/mL ECSTASY 500 ng/mL These are only preliminary test results. Positive results have not been confirmed. For a confirmed analytical result, gas chromatography/mass spectrometry is the preferred method. Results are to be used only for medical (i.e. treatment) purposes. Unconfirmed screening results must not be used for non-medical purposes (e.g. employment testing, legal testing). Basic Metabolic Eaxdk0604-46-87 21:25:00* Test Item Value Reference Range Interpretation Comments Sodium level (test code = ZHH0823) 129 meq/L 135-145 L 2.9Repeated, Pt history, Broadcast at 2123 by TradonoHO Chloride measurement (test code = CHF3388) 100 meq/L 101-111 L Bicarbonate (test code = CO2) 16 meq/L 21-31 L Glucose measurement (test code = JKX2932) 202 mg/dL 65-120 H ADA Clinical Practice Recommendation: <100 mg/dl = Normal Fasting Glucose BUN Bld-mCnc (test code = 6299-2) 12 mg/dL 6-20 Creatinine measurement (test code = DKE8124) 0.66 mg/dL 0.61-1.24 The creatinine method used has been calibrated to be traceable to Isotope dilution Mass Spectrometry (IDMS). For more information: www.nkdep.nih.gov Estimated glomerular filtration rate (GFR) determinati on (test code = 04176-4) >90 mL =/>90 FOR CHRONIC KIDNEY D ISEASE: GFR STAGE DESCRIPTION =/>90 STAGE 1 NORMAL--OR-- MINIMAL KIDNEY DAMAGE WITH NORMAL GFR 60-89 STAGE 2 MILD DECREASE IN GFR 30-59 STAGE 3 MODERATE DECREASE IN GFR 15-29 STAGE 4 SEVERE DECREASE IN GFR <15 STAGE 5 KIDNEY FAILURE The Glomerular Filtration Rate (GFR) has been calculated using the IDMS-Traceable MDRD Study Equation. Calcium Level (test code = CA) 8.1 mg/dL 8.5-10.5 L Primary Language EnglishGlucose blood yhcpizlpncx6744-19-96 19:54:00* Test Item Value Reference Range Interpretation Comments Glucose blood fingerstick (test code = DPF6922) 184 mg/dL 65-120 H Glucose blood qbbukqrmqff6368-62-73 17:43:00* Test Item Value Reference Range Interpretation Comments Glucose blood fingerstick (test code = STB6042) 129 mg/dL 65-120 H Glucose blood ilafpdkhxeb9049-51-78 17:43:00* Test Item Value Reference Range Interpretation Comments Glucose blood fingerstick (test code = SHP1588) 236 mg/dL 65-120 H Basic Metabolic Oehqd3314-26-93 16:52:00* Test Item Value Reference Range Interpretation Comments Sodium level (test code = PKF7717) 129 meq/L 135-145 L 2.7Repeated & Called to PATRICIA MUHAMMAD RN on 06/18/17 at 1652 by REBECCA Was there 100% Readback? Y Chloride measurement (test code = VGL7165) 101 meq/L 101-111 Bicarbonate (test code = CO2) 17 meq/L 21-31 L Glucose measurement (test code = OUY1011) 201 mg/dL 65-120 H ADA Clinical Practice Recommendation: <100 mg/dl = Normal Fasting Glucose BUN Bld-mCnc (test code = 6299-2) 11 mg/dL 6-20 Creatinine measurement (test code = PEY4264) 0.70 mg/dL 0.61-1.24 The creatinine method used has been calibrated to be traceable to Isotope dilution Mass Spectrometry (IDMS). For more information: www.nkdep.nih.gov Estimated glomerular filtration rate (GFR) determinati on (test code = 70737-0) >90 mL =/>90 FOR CHRONIC KIDNEY D ISEASE: GFR STAGE DESCRIPTION =/>90 STAGE 1 NORMAL--OR-- MINIMAL KIDNEY DAMAGE WITH NORMAL GFR 60-89 STAGE 2 MILD DECREASE IN GFR 30-59 STAGE 3 MODERATE DECREASE IN GFR 15-29 STAGE 4 SEVERE DECREASE IN GFR <15 STAGE 5 KIDNEY FAILURE The Glomerular Filtration Rate (GFR) has been calculated using the IDMS-Traceable MDRD Study Equation. Calcium Level (test code = CA) 8.4 mg/dL 8.5-10.5 L Primary Language EnglishGlucose blood lxyjabiroxu5707-21-99 15:20:00* Test Item Value Reference Range Interpretation Comments Glucose blood fingerstick (test code = VBO2004) 208 mg/dL 65-120 H Glucose blood iaxzlpbthay2441-73-12 14:12:00* Test Item Value Reference Range Interpretation Comments Glucose blood fingerstick (test code = KRM5933) 199 mg/dL 65-120 H Glucose blood fuvzdgqeezh6982-70-12 14:03:00* Test Item Value Reference Range Interpretation Comments Glucose blood fingerstick (test code = AXF1268) 250 mg/dL 65-120 H Glucose blood akjntwxhzxk7298-28-19 14:02:00* Test Item Value Reference Range Interpretation Comments Glucose blood fingerstick (test code = QVO3204) 241 mg/dL 65-120 H Glucose blood awwdrboylow8920-12-34 14:02:00* Test Item Value Reference Range Interpretation Comments Glucose blood fingerstick (test code = FOW3586) 224 mg/dL 65-120 H Urine dipstick testing at degpd-ju-enst9368-08-08 13:41:00* Test Item Value Reference Range Interpretation Comments Urine specific gravity measurement (test code = 2965-2) 1.010 1.005-1.030 Urine glucose detection (test code = 2349-9) 1+ NEG Urine Ketones (test code = UKET) 3+ NEG AA Urine blood detection (test code = 44105-6) Negative NEG Urine pH (test code = 2756-5) 6.0 5.0-7.0 Urinalysis with microscopy (test code = 11515-0) 1+ NEG AA Urine nitrate measurement (test code = 20745-5) NEGATIVE NEG Urine Leukocyte Esterase (test code = UESTR) NEGATIVE NEG Comment Bed:4 AMILCAR NEG 1+ 3+ NEG NEG 6.0 1+ Y 1.010Basic Metabolic Nnfgn8229-83-09 13:00:00* Test Item Value Reference Range Interpretation Comments Sodium level (test code = EAV0965) 126 meq/L 135-145 L 3.3 Chloride measurement (test code = CXP3057) 100 meq/L 101-111 L Bicarbonate (test code = CO2) 11 meq/L 21-31 LL Repeated, Pt history, Broadcast at 1300 by [facility] Glucose measurement (test code = HJD1133) 269 mg/dL 65-120 H ADA Clinical Practice Recommendation: <100 mg/dl = Normal Fasting Glucose BUN Bld-mCnc (test code = 6299-2) 12 mg/dL 6-20 Creatinine measurement (test code = SKT8431) 0.81 mg/dL 0.61-1.24 The creatinine method used has been calibrated to be traceable to Isotope dilution Mass Spectrometry (IDMS). For more information: www.nkdep.nih.gov Estimated glomerular filtration rate (GFR) determinati on (test code = 48739-4) >90 mL =/>90 FOR CHRONIC KIDNEY D ISEASE: GFR STAGE DESCRIPTION =/>90 STAGE 1 NORMAL--OR-- MINIMAL KIDNEY DAMAGE WITH NORMAL GFR 60-89 STAGE 2 MILD DECREASE IN GFR 30-59 STAGE 3 MODERATE DECREASE IN GFR 15-29 STAGE 4 SEVERE DECREASE IN GFR <15 STAGE 5 KIDNEY FAILURE The Glomerular Filtration Rate (GFR) has been calculated using the IDMS-Traceable MDRD Study Equation. Calcium Level (test code = CA) 8.5 mg/dL 8.5-10.5 Comment Bed:4Acetone Cdujk7434-76-94 12:57:00* Test Item Value Reference Range Interpretation Comments Acetone Level (test code = ACET) MODERATE NEG AA Comment Bed:4Lactic acid ewtxdapyzcx0088-06-19 12:45:00* Test Item Value Reference Range Interpretation Comments Lactic acid measurement (test code = OGD7974) 16.4 mg/dL 4.5-19.8 Arterial blood gas xnqansgkcxv4165-80-41 12:01:00* Test Item Value Reference Range Interpretation Comments Blood gas pH assay (test code = 91819-2) 7.26 7.35-7.45 L POSITIVE ID//ALLENS TEST; FIO2 21%; RIGHT RADIAL STICK.@Other Dr: Repeated & Called to JANAK BENEFITS COORDINATOR on 06/18/17 at 1200 by Nipendo Was there 100% Readback? Blood partial pressure of carbon dioxide measurement ( test code = 61993-0) 24.4 mm[Hg] 35-45 L Blood partial pressure of oxygen measurement (test code = 11 556-8) 107.0 mm[Hg] 75-100 H Blood Gas HCO3 (test code = ABGHCO3) 10.7 mmol/L 22-28 L Blood base excess determination (test code = 1927-3) -15.0 mmol/L Arterial blood oxygen saturation measurement (test code = 27 08-6) 97.1 % 92-98.5 Arterial blood fractional oxyhemoglobin (test code = 2714-4) 92.7 % 94-97 L Arterial blood carboxyhemoglobin measurement (test code = 2030-5) 1 .3 % 0-1.5 Blood Gas Methemoglobin (test code = ABGMETHB) 3.2 % 0-1.5 H Blood Gas THB (test code = ABGTHB) 16.5 g/dL 12-18 Blood Gas Inspired Oxygen (test code = ABGFIO2) 21.0 % Comment Bed:asic Metabolic Zxqen1804-79-54 11:39:00* Test Item Value Reference Range Interpretation Comments Sodium level (test code = GLG0190) 124 meq/L 135-145 L 3.2 Chloride measurement (test code = OKP7336) 95 meq/L 101-111 L Bicarbonate (test code = CO2) 10 meq/L 21-31 LL Repeated & Called to ANA BAILEY RN on 06/18/17 at 1139 by [employer] Was there 100% Readback? YES Glucose measurement (test code = EMH1822) 310 mg/dL 65-120 H ADA Clinical Practice Recommendation: <100 mg/dl = Normal Fasting Glucose BUN Bld-mCnc (test code = 6299-2) 13 mg/dL 6-20 Creatinine measurement (test code = BUK4564) 0.89 mg/dL 0.61-1.24 The creatinine method used has been calibrated to be traceable to Isotope dilution Mass Spectrometry (IDMS). For more information: www.nkdep.nih.gov Estimated glomerular filtration rate (GFR) determinati on (test code = 47722-2) >90 mL =/>90 FOR CHRONIC KIDNEY D ISEASE: GFR STAGE DESCRIPTION =/>90 STAGE 1 NORMAL--OR-- MINIMAL KIDNEY DAMAGE WITH NORMAL GFR 60-89 STAGE 2 MILD DECREASE IN GFR 30-59 STAGE 3 MODERATE DECREASE IN GFR 15-29 STAGE 4 SEVERE DECREASE IN GFR <15 STAGE 5 KIDNEY FAILURE The Glomerular Filtration Rate (GFR) has been calculated using the IDMS-Traceable MDRD Study Equation. Calcium Level (test code = CA) 8.5 mg/dL 8.5-10.5 HEMOLYZED Specimen, recollect request called to [employer] on 06/18/17 at 1011 by [place]u label to LERLiver (Hepatic) Ceczgrww1810-27-21 11:39:00* Test Item Value Reference Range Interpretation Comments Aspartate aminotransferase (AST) measurement (test code = IM O0002) 16 [iU]/L 10-42 ALT/SGPT (test code = SGPT) 13 [iU]/L 10-60 Alkaline Phosphatase (test code = ALK) 183 [iU]/L 42-121 H Bilirubin total (test code = CVK5207) 1.2 mg/dL 0.3-1.2 Bilirubin direct (test code = 1968-7) 0.1 mg/dL 0-0.2 Serum total protein measurement (test code = 2885-2) 8.2 g/dL 6 .0-8.3 Albumin measurement (test code = FIV4153) 4.5 g/dL 3.2-5.5 Globulin (test code = GLOB) 3.7 g/dL 2.3-3.5 H Albumin/Globulin Ratio (test code = A/G) 1.2 1.1-1.8 HEMOLYZED Specimen, recollect request called to [employer] on 06/18/17 at 1011 by [place] label to LERCreatine Omliigghhrtzr1357-74-65 11:39:00* Test Item Value Reference Range Interpretation Comments Creatine Phosphokinase (test code = CPK) 40 [iU]/L 22-269 HEMOLYZED Specimen, recollect request called to ANA on 06/18/17 at 1011 by [employer] label to LERCKMB Creatine Kinase NH3009-06-07 11:39:00* Test Item Value Reference Range Interpretation Comments CKMB Creatine Kinase MB (test code = CKMB) 1.2 ng/mL 0.3-4.0 HEMOLYZED Specimen, recollect request called to ANA on 06/18/17 at 1011 by [employer] label to LERMagnesium wulkbnfvprm8552-89-77 11:39:00* Test Item Value Reference Range Interpretation Comments Magnesium measurement (test code = 46806-9) 2.1 mg/dL 1.8-2.5 HEMOLYZED Specimen, recollect request called to ANA on 06/18/17 at 1011 by [employer] label to LERBrain natriuretic peptide (BNP) measurement 2017-06-18 11:36:00* Test Item Value Reference Range Interpretation Comments Brain natriuretic peptide (BNP) measurement (test code = 309 34-4) 44 pg/mL <=100 Troponin (Emerg Dept Use Only)2017-06-18 10:35:00* Test Item Value Reference Range Interpretation Comments Troponin (Emerg Dept Use Only) (test code = TROPED) < 0.03 <0 .03 Comment Bed:4 Test Ordered to Rule Out VTE/DVT? NProthrombin time (PT) with international normalized ratio (INR)2017-06-18 10:11:00* Test Item Value Reference Range Interpretation Comments PT Prothrombin Time (test code = PROTIME) 10.4 s 9.5-12.5 INR in Blood by Coagulation assay (test code = 81981-0) 0.88 Monitor pts using INR value (not prothrombin time) INR Coumadin Therapy: Low Range (prophylaxis) 2.0-3.0 High Range (high risk of clot formation) 2.5-3.5 Test Ordered to Rule Out VTE/DVT? N Test Ordered to Rule Out VTE/DVT? NPTT, Activated Partial Aousai5128-04-31 10:11:00* Test Item Value Reference Range Interpretation Comments PTT, Activated Partial Thromb (test code = PTT) 25.6 s 24.3-3 6.9 Test Ordered to Rule Out VTE/DVT? N Test Ordered to Rule Out VTE/DVT? NComplete blood count (CBC) with automated white blood cell (WBC) xnwebtvxinno7387-89-58 10:06:00* Test Item Value Reference Range Interpretation Comments White blood cell count (test code = GUO2135) 13.0 4.3-10.9 H Blood erythrocytes count (number/volume) (test code = 54257- 1) 5.81 M/ul 4.33-5.43 H Hemoglobin measurement (test code = AHG5457) 19.2 g/dL 13.6-17.9 H Blood hematocrit (volume fraction) (test code = 89874-2) 55.3 % 39.6-49.0 H MCV (test code = 99918-2) 95.3 fL 80-100 MCH (test code = 21650-5) 33.1 pg 27.0-35.0 MCHC (test code = MCHC) 34.7 g/dL 32.0-36.0 Platelets (test code = PLT) 279 152-406 Red Cell Distribution Width (test code = RDW) 13.4 % 12.1-15. 2 Blood platelet mean volume (test code = 07240-7) 8.5 fL 7.6-1 1.3 Neutrophils % (test code = SID%) 83.6 % 41.7-73.7 H Lymphocytes/leuk NFr Bld (test code = 66984-6) 9.9 % 15.3-44 .8 L Monocyte percentage (test code = 5905-5) 5.9 % 3.3-12.3 Eosinophil % (test code = 713-8) 0.0 % 0-4.4 Basophil % (test code = 49523-1) 0.6 % 0-1.3 Absolute neutrophil count (test code = 751-8) 10.9 1.8-8.0 H Absolute lymphocyte count (test code = 75560-5) 1.3 0.7-4. 9 Absolute monocyte count (test code = 742-7) 0.8 0.1-1.3 Absolute Eosinophils (test code = EOA) 0.0 0-0.5 Absolute Basophils (test code = BASA) 0.1 0-0.5 CHEST SINGLE (PORTABLE) [facility] [address] [address] Patient Name: KEVIN LOMELI MR #: [id number] : 1995 Age/Sex: 22/M Req #: [id number] Adm Physician: Ordered by: SAMUEL ARIAS MD Report #: [id number] Location: ER Room/Bed: Procedure: [id number] DX/CHEST SINGLE (PORTABL E) Exam Date: 01/26/18 Exam Time: 1934 REPORT STATUS: Signed CHEST SINGLE (PORTABLE), 01/26/2018 7:20 PM Technique: NORMA ST SINGLE (PORTABLE) Comparison: 11/08/2017 Clinical history: Shortness of b reath Findings: Lung apices are partially excluded. Unremarkable appearan ce of the heart, mediastinum, lungs and pleural spaces. Impression: 1. Lines/Tubes: None 2. No acute abnormality. Signed by: Lalit Astudillo on 01/26/2018 7:51 PM Dictated By: ROXANA GARCIA MD Electronically Si gned By: ROXANA GARCIA MD on 01/26/181950 Transcribed By: GABY on 1950 COPY TO: SAMUEL ARIAS MD [facility] [place] [address] Patient Name: KEVIN LOMELI MR #: [id number] : 0 1995 Age/Sex: 22/M Req #: [id number] Adm Physician: ANA CAMEJO MD Ordered by: Yordy Page NP Report #: [id number] Locati on: MED/SURG Room/Bed: 106-1 Procedure: [id number] US/ US ABDOMEN COMPLETE Exam Date: 11/10/17 Exam Time: 1 330 REPORT STATUS: Signed HISTORY: Nausea and abdominal pain TECHN IQUE: Selected static images from complete abdominal ultrasound provided for I NTERPRETATION: COMPARISON: None FINDINGS: Pancreas: Visualized portions are normal. No ductal dilatation. Liver: Measures 14.8 cm in sa gittal plane. The echotexture is normal. No mass in the visualized portions. Portal Vein: Proper directional flow on spectral Doppler interrogation. Bilia ry Tree: Normal Gallbladder: No evidence of gallstone or gallbladder wall t hickening. CBD: 0.2 cm. Right Kidney: Length is 13.9 cm. Echotexture i s increased. No mass or hydronephrosis. Left Kidney: Length is 13.0 cm. Echotexture is increased. No mass or hydronephrosis. Spleen: 9.4cm in l ength. No evidence for mass. Aorta: Measures 1.5 cm. IVC: Patent No free fluid IMPRESSION: Increased renal echotexture could be the re sult of dehydration or medical renal disease. No hydronephrosis. The raul aurea of the visualized abdomen is normal. Signed by: Dr. Eduard Drake MD on 11/10/2017 2:01 PM Dictated By: EDUARD DRAKE MD Electronica lly Signed By: EDUARD DRAKE MD on 11/10/17 140 Transcribed By: GABY on 11/10/17 1401 COPY TO: YORDY PAGE BENEFITS COORDINATOR CHEST SINGLE (PORTABLE) [address] [place] [address] Patient Name: KEVIN LOMELI MR #: [id number] : 0 1995 Age/Sex: 22/M Req #: [id number] Adm Physician: Ordered by: OLIVA JACOB MD Report #: [id number] Location: ER Room/Bed: Procedure: [id number] DX/CHEST SINGLE (PORTABLE) Exa m Date: 11/08/17 Exam Time: 2209 REPORT STATUS: Signed CHEST SINGLE (PORTABLE), 11/08/2017 9:59 PM Technique: CHEST SIN GLE (PORTABLE) Comparison: None available. Clinical history: 01/01/2017 Findings: Unremarkable appearance of the heart, mediastinum, lungs and pleural spaces. Impression: 1. Lines/Tubes: None 2. No acute abnormality. Signed by: Dr Roxana Garcia MD on 11/08/2017 10:22 PM Dictated By: FLORIDALMA GARCIA MD 21 Transcribed By: GABY on 11/08/172221 COPY TO: OLIVA JACOB MD
--- NOTE | 2020-06-11 23:39 | NUR ---
CALLED [facility]. NO ICU BEDS AVAIL.
--- NOTE | 2020-06-11 23:39 | NUR ---
CALLED [facility] TRANSFER CNTR. NO BEDS AVAIL.
[2020-06-11] MEDS ORDERED: INSULIN REGULAR, HUMAN 100 UNIT/1 ML 3ML VIAL ONE (23:41)
--- NOTE | 2020-06-11 23:42 | NUR ---
CALLED [facility] TRANSFER CNTR.
[2020-06-11 23:55] LABS: BASOPHILS # (AUTO) 0.1 (0.0-0.1); BASOPHILS % 0.4 % (0.0-1.0); EOSINOPHILS % 30.8 % (0.0-6.0); HEMATOCRIT 42.9 % (38.2-49.6); LYMPHOCYTES # (AUTO) 0.6 (1.0-3.2); LYMPHOCYTES % 3.3 % (18.0-39.1); MEAN CORPUSCULAR HGB CONC 37.3 g/dL (31-35); MEAN CORPUSCULAR VOLUME 83.1 fL (81-99); MONOCYTES # (AUTO) 1.2 (0.2-0.8); NEUTROPHILS # (AUTO) 11.4 (2.1-6.9); PLATELET COUNT 351 x10e3/uL (140-360); RED BLOOD COUNT 5.16 x10e6/uL (4.3-5.7); RED CELL DISTRIBUTION WIDTH 13.4 % (11.7-14.4)
--- NOTE | 2020-06-12 | NUR ---
[facility] TRANSFER CNTR CALLED BACK TO SPEAK WITH DR JUAREZ, DR SOLIS ACCEPTING.
--- NOTE | 2020-06-12 00:04 | NUR ---
REC'D CALL FROM [facility]TR FOR FACE SHEET FAX.
--- NOTE | 2020-06-12 00:06 | Emergency Department Note ---
History of Present Illnes History of Present Illness Chief Complaint: Abdominal Complaints History of Present Illness This is a 25 year old male hief Complaint Comment , N/V/D FOR 2-3DAYS,patent is a known diabetic with multiple admissions for DKA . Historian: Patient Arrival Mode: Car Onset (how long ago): day(s) (3) Location: VOMITING Quality: DULL Radiation: Denies non-radiation, Denies back, Denies neck, Denies extremity, Denies abdomen, Denies periumbilical, Denies flank, Denies proximal, Denies distal, Denies other Severity: severe Onset quality: gradual Duration (how long): day(s) (3) Timing of current episode: constant Progression: worsening Chronicity: new Context: Denies recent illness, Denies recent surgery, Denies recent immobilization, Denies recent travel, Denies trauma/injury, Denies new medications, Denies hx of DVT/PE, Denies non-compliance w/ medications, Denies other Relieving factors: none Exacerbating factors: none Associated symptoms: Reports nausea/vomiting; Denies denies other symptoms, Denies confusion, Denies chest pain, Denies cough, Denies diaphoresis, Denies fever/chills, Denies headaches, Denies loss of appetite, Denies malaise, Denies rash, Denies seizure, Denies shortness of breath, Denies syncope, Denies weakness, Denies other Past Medical/Family History Physician Review I have reviewed the patient's past medical and family history. Any updates have been documented here. Past Medical History Recent Fever: No Clinical Suspicion of Infectio: No New/Unexplained Change in Ment: No Past Medical History: Diabetes Other Medical History: GASTROPARESIS Past Surgical History: None Other Surgery: plastic surgery on eyelids as a child Social History Smoking Cessation: Never Smoker Alcohol Use: None Any Illegal Drug Use: No Other Last Tetanus: UNKNOWN Any Pre-Existing Lines (PICC,: No Review of Systems Review of Systems Constitutional: Reports as per HPI EENTM: Reports no symptoms Cardiovascular: Reports no symptoms Respiratory: Reports no symptoms Gastrointestinal: Reports as per HPI Genitourinary: Reports no symptoms Musculoskeletal: Reports no symptoms Integumentary: Reports no symptoms Neurological: Reports no symptoms Psychological: Reports no symptoms Endocrine: Reports no symptoms Hematological/Lymphatic: Reports no symptoms Physical Exam Related Data Allergies: Coded Allergies: No Known Allergies (Unverified , 05/19/19) Triage Vital Signs Vital Signs Date Time Temp Pulse Resp B/P (MAP) Pulse Ox O2 Delivery O2 Flow Rate FiO2 06/11/20 22:30 96.7 148 28 180/116 100 Room Air Vital signs reviewed: Yes Physical Exam CONSTITUTIONAL Constitutional: Present distressed (MDERATE DISTRESS) HENT HENT: Present normocephalic, Present atraumatic, Present oropharynx clear/moist, Present nose normal HENT L/R: Present left ext ear normal, Present right ext ear normal EYES Eyes: Reports PERRL, Reports conjunctivae normal NECK Neck: Present ROM normal PULMONARY Pulmonary: Present effort normal, Present breath sounds normal CARDIOVASCULAR Cardiovascular: Present regular rhythm, Present heart sounds normal, Present capillary refill normal, Present normal rate GASTROINTESTINAL Abdominal: Present soft, Present nontender, Present bowel sounds normal GENITOURINARY Genitourinary: Present exam deferred SKIN Skin: Present warm, Present dry MUSCULOSKELETAL Musculoskeletal: Present ROM normal NEUROLOGICAL Neurological: Present alert, Present oriented x 3, Present no gross motor or sensory deficits PSYCHOLOGICAL Psychological: Present mood/affect normal, Present judgement normal Results Laboratory Laboratory Laboratory Tests Test 06/11/20 23:10 Lab results reviewed: Yes Assessment & Plan Medical Decision Making MDM DKA HYPERGLYCEMIA Reassessment Reassessment time: 00:05 Reassessment BETTER Assessment & Plan Final Impression: (1) DKA (diabetic ketoacidoses) (2) Dehydration (3) Vomiting (4) Tachycardia Depart Disposition: TRANS TO OTHER [facility] Last Vital Signs Date Time Temp Pulse Resp B/P (MAP) Pulse Ox O2 Delivery O2 Flow Rate FiO2 06/11/20 22:30 96.7 148 28 180/116 100 Room Air Home Meds Active Scripts Insulin Detemir (LEVEMIR) 100 Unit/1 Ml Vial, 14 UNITS SC Q12H for 30 Days Prov:JEREMIE BANKS MD 07/26/18 Reported Medications Metoclopramide Hcl (REGLAN) 5 Mg Tablet, 5 MG PO ACHS 01/30/19 Ondansetron Hcl (ONDANSETRON HCL) 4 Mg Tablet, 4 MG PO TID PRN for NAUSEA AND VOMITING 01/30/19 Insulin Lispro (HUMALOG) 100 Unit/1 Ml Cartridge 05/16/18 Medications in the ED Sodium Chloride 1,000 ml @ 0 mls/hr Q0M STAT IV Last administered on 06/11/20at 23:20; Admin Dose 1,000 MLS/HR; Start 06/11/20 at 22:40; Stop 06/11/20 at 22:44; Status DC Sodium Chloride 1,000 ml @ 0 mls/hr Q0M STAT IV Last administered on 06/11/20at 23:53; Admin Dose 1,000 MLS/HR; Start 06/11/20 at 22:40; Stop 06/11/20 at 22:44; Status DC Ondansetron HCl 4 mg NOW STAT IV ; Start 06/11/20 at 22:49; Stop 06/11/20 at 22:50; Status UNV Sodium Chloride 2,000 ml @ [facility] ONCE .ROUTE ; Start 06/11/20 at 23:23; Stop 06/11/20 at 23:20; Status DC Insulin Human Regular 15 unit ONCE ONCE IV Last administered on 06/11/20at 23:36; Admin Dose 15 UNIT; Start 06/11/20 at 23:30; Stop 06/11/20 at 23:31; Status UNV Sodium Chloride 1,000 ml @ 0 mls/hr Q0M STAT IV ; Start 06/11/20 at 23:28; Stop 06/11/20 at 23:31; Status DC ABHINAV JUAREZ MD Jun 12, 2020 00:06
[2020-06-12] MEDS ORDERED: SODIUM CHLORIDE 0.9% 1000ML 1,000 ML ONE (00:36)
--- NOTE | 2020-06-12 00:53 | NUR ---
REPORT TO NANDO SOTO FOR RM 7A [address] [facility]
[2020-06-12 01:03] VITALS: BP 146/65
--- NOTE | 2020-06-12 01:15 | NUR ---
EMS ARRIVED. REPORT GIVEN.
--- NOTE | 2020-06-12 01:23 | NUR ---
CALLED TO INFORM NANDO SOTO AT [facility] THAT EMS IN ROUTE
== END 2020-06-12 01:24 | disposition other institution (70) ==
LOC: FSED 22:45
DX: E11.10 Type 2 diabetes mellitus with ketoacidosis without coma (principal); E86.0 Dehydration; R11.2 Nausea with vomiting, unspecified; R00.0 Tachycardia, unspecified; R19.7 Diarrhea, unspecified
CPT/HCPCS: 36415; 80053; 85025; 99284; J1817; J7030 ×2

== ENCOUNTER 2020-07-17 13:46 | Inpatient (IN) | payer SELFPAY ==
[~2020-07-17] VITALS: Ht 180.3 cm; Wt 62.7 kg
[2020-07-17] VITALS (8 sets, daily range): BP systolic 92–129; BP diastolic 64–93
[2020-07-17] MEDS ORDERED: SODIUM CHLORIDE 0.9% 1000ML 1,000 ML IV STA ×2 (14:10)
[2020-07-17] MEDS ORDERED: SODIUM CHLORIDE 0.9% 1000ML 2,000 ML ONE (14:30)
[2020-07-17] MEDS ORDERED: INSULIN REGULAR, HUMAN 100 UNIT/1 ML 3ML VIAL IV ONE ×2 (14:30→15:30)
[2020-07-17 14:49] LABS: BASOPHILS # (AUTO) 0.1 (0.0-0.1); BASOPHILS % 0.4 % (0.0-1.0); HEMOGLOBIN 16.9 g/dL (14.0-18.0); LYMPHOCYTES # (AUTO) 2.2 (1.0-3.2); LYMPHOCYTES % 8.4 % (18.0-39.1); MEAN CORPUSCULAR HEMOGLOBIN 31.4 pg (28-32); MEAN CORPUSCULAR HGB CONC 33.8 g/dL (31-35); MEAN CORPUSCULAR VOLUME 92.9 fL (81-99); MONOCYTES # (AUTO) 2.5 (0.2-0.8); MONOCYTES % 9.6 % (4.4-11.3); NEUTROPHILS # (AUTO) 20.7 (2.1-6.9); NEUTROPHILS % 79.9 % (38.7-80.0); PLATELET COUNT 266 x10e3/uL (140-360); RED BLOOD COUNT 5.38 x10e6/uL (4.3-5.7); RED CELL DISTRIBUTION WIDTH 12.8 % (11.7-14.4)
--- OUTSIDE RECORDS SUMMARY | 2020-07-17 14:50 | XMS REPORT | Clinical Summary ---
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 Name Role Phone Pcp, No PCP Unavailable [...] 10/26/2019 Telephone Critical Care Medic ine after 07/17/2019 Family History Medical History Relation Name Comments [...] Taken Vital Sign Reading 10/28/2019 12:34 PM TRANSACTION ADVISORY SERVICES MANAGER Blood Pressure 114/73 10/28/2019 12:34 PM TRANSACTION ADVISORY SERVICES MANAGER Pulse 79 10/28/2019 12:34 PM TRANSACTION ADVISORY SERVICES MANAGER Temperature 35.9 C (96.7 F) 10/28/2019 12:34 PM TRANSACTION ADVISORY SERVICES MANAGER Respiratory Rate 18 10/28/2019 12:34 PM TRANSACTION ADVISORY SERVICES MANAGER Oxygen Saturation 100% - Inhaled Oxygen - Concentration 10/28/2019 5:36 AM TRANSACTION ADVISORY SERVICES MANAGER Weight 59 kg (130 lb 1.1 oz) 10/28/2019 12:00 AM TRANSACTION ADVISORY SERVICES MANAGER Height 180.3 cm (5' 11") 10/28/2019 5:36 AM TRANSACTION ADVISORY SERVICES MANAGER Body Mass Index 18.14 Plan of Treatment Not on file Procedures Comments Procedure Name Priority Date/Time Associated Diag nosis RHYTHM STRIP - SCAN 10/30/2019 9:11 AM TRANSACTION ADVISORY SERVICES MANAGER POCT-GLUCOSE METER Routine 10/28/2019 12:35 PM TRANSACTION ADVISORY SERVICES MANAGER POCT-GLUCOSE METER Routine 10/28/2019 8:57 AM TRANSACTION ADVISORY SERVICES MANAGER MAGNESIUM Routine 10/28/2019 4:59 AM TRANSACTION ADVISORY SERVICES MANAGER BASIC METABOLIC PANEL (7) Routine 10/28/2019 4:59 AM TRANSACTION ADVISORY SERVICES MANAGER MAGNESIUM STAT 10/28/2019 4:59 AM TRANSACTION ADVISORY SERVICES MANAGER POCT-GLUCOSE METER Routine 10/27/2019 10:23 PM TRANSACTION ADVISORY SERVICES MANAGER POCT-GLUCOSE METER Routine 10/27/2019 5:18 PM TRANSACTION ADVISORY SERVICES MANAGER POCT-GLUCOSE METER Routine 10/27/2019 12:21 PM TRANSACTION ADVISORY SERVICES MANAGER POCT-GLUCOSE METER Routine 10/27/2019 11:52 AM TRANSACTION ADVISORY SERVICES MANAGER POCT-GLUCOSE METER Routine 10/27/2019 10:19 AM TRANSACTION ADVISORY SERVICES MANAGER POCT-GLUCOSE METER Routine 10/27/2019 9:10 AM TRANSACTION ADVISORY SERVICES MANAGER POCT-GLUCOSE METER Routine 10/27/2019 7:56 AM TRANSACTION ADVISORY SERVICES MANAGER POCT-GLUCOSE METER Routine 10/27/2019 6:13 AM TRANSACTION ADVISORY SERVICES MANAGER POCT-GLUCOSE METER Routine 10/27/2019 4:59 AM TRANSACTION ADVISORY SERVICES MANAGER RAPID DRUG SCREEN, URINE Routine 10/27/2019 4:59 AM TRANSACTION ADVISORY SERVICES MANAGER URINALYSIS W/ REFLEX Routine 10/27/2019 URINE CULTURE 4:59 AM TRANSACTION ADVISORY SERVICES MANAGER BLOOD CULTURE Routine 10/27/2019 4:56 AM TRANSACTION ADVISORY SERVICES MANAGER CBC W/PLT COUNT & AUTO Routine 10/27/2019 DIFFERENTIAL 4:24 AM TRANSACTION ADVISORY SERVICES MANAGER KETONE, BLOOD Routine 10/27/2019 4:24 AM TRANSACTION ADVISORY SERVICES MANAGER BLOOD GAS, VENOUS Routine 10/27/2019 4:24 AM TRANSACTION ADVISORY SERVICES MANAGER CBC W/PLT COUNT & AUTO Routine 10/27/2019 DIFFERENTIAL 4:24 AM TRANSACTION ADVISORY SERVICES MANAGER MAGNESIUM Routine 10/27/2019 4:24 AM TRANSACTION ADVISORY SERVICES MANAGER BASIC METABOLIC PANEL (7) Routine 10/27/2019 4:24 AM TRANSACTION ADVISORY SERVICES MANAGER POCT-GLUCOSE METER Routine 10/27/2019 2:32 AM TRANSACTION ADVISORY SERVICES MANAGER POCT-GLUCOSE METER Routine 10/27/2019 1:31 AM TRANSACTION ADVISORY SERVICES MANAGER BLOOD GAS, VENOUS STAT 10/27/2019 12:41 AM TRANSACTION ADVISORY SERVICES MANAGER CBC W/PLT COUNT & AUTO STAT 10/27/2019 DIFFERENTIAL 12:29 AM TRANSACTION ADVISORY SERVICES MANAGER CBC W/PLT COUNT & AUTO STAT 10/27/2019 DIFFERENTIAL 12:29 AM TRANSACTION ADVISORY SERVICES MANAGER HEPATIC FUNCTION PANEL STAT 10/27/2019 12:29 AM TRANSACTION ADVISORY SERVICES MANAGER TROPONIN I Routine 10/27/2019 12:29 AM TRANSACTION ADVISORY SERVICES MANAGER HEMOGLOBIN A1C Routine 10/27/2019 12:29 AM TRANSACTION ADVISORY SERVICES MANAGER TSH/FREE T4 IF INDICATED Routine 10/27/2019 12:29 AM TRANSACTION ADVISORY SERVICES MANAGER LIPASE Routine 10/27/2019 12:29 AM TRANSACTION ADVISORY SERVICES MANAGER AMYLASE Routine 10/27/2019 12:29 AM TRANSACTION ADVISORY SERVICES MANAGER LACTIC ACID, VENOUS Routine 10/27/2019 12:29 AM TRANSACTION ADVISORY SERVICES MANAGER MAGNESIUM Routine 10/27/2019 12:29 AM TRANSACTION ADVISORY SERVICES MANAGER BASIC METABOLIC PANEL (7) Routine 10/27/2019 12:29 AM TRANSACTION ADVISORY SERVICES MANAGER KETONE, BLOOD STAT 10/27/2019 12:29 AM TRANSACTION ADVISORY SERVICES MANAGER PHOSPHORUS STAT 10/27/2019 12:29 AM TRANSACTION ADVISORY SERVICES MANAGER MAGNESIUM STAT 10/27/2019 12:29 AM TRANSACTION ADVISORY SERVICES MANAGER POTASSIUM STAT 10/27/2019 12:29 AM TRANSACTION ADVISORY SERVICES MANAGER BASIC METABOLIC PANEL (7) STAT 10/27/2019 12:29 AM TRANSACTION ADVISORY SERVICES MANAGER BLOOD CULTURE Routine 10/27/2019 12:29 AM TRANSACTION ADVISORY SERVICES MANAGER POCT-GLUCOSE METER Routine 10/27/2019 12:01 AM TRANSACTION ADVISORY SERVICES MANAGER after 07/17/2019 Results * RHYTHM STRIP - SCAN (10/30/2019 9:11 AM TRANSACTION ADVISORY SERVICES MANAGER) Narrative Performed At This result has an attachment that is n ot available. * POC-Glucose meter (10/28/2019 12:35 PM TRANSACTION ADVISORY SERVICES MANAGER) Only the most recent of 14 results within the time period is included. POC-Glucose Meter 159 (H)Comment: : TESTED AT 70 - 110 mg/dL [facility] [address]: Knitting Supervisor/Hand Rounder ID = [id number] for MILTON SHARPE Specimen Blood Performing Organization Address [facility] one Number [address] [facility] * Magnesium (10/28/2019 4:59 AM TRANSACTION ADVISORY SERVICES MANAGER) Only the most recent of 5 results within the time period is included. Magnesium 2.1 1.6 - 2.6 mg/dL [facility] Specimen Blood Performing Organization Address [facility] one Number [place] [address] [facility] * Basic Metabolic Panel (10/28/2019 4:59 AM TRANSACTION ADVISORY SERVICES MANAGER) Only the most recent of 4 results within the time period is included. Sodium 135 (L) 136 - 145 meq/L [facility] Potassium 3.8 3.5 - 5.1 meq/L [facility] Chloride 101 98 - 107 meq/L [facility] CO2 28 22 - 29 meq/L [facility] BUN 13 7 - 21 mg/dL [facility] Creatinine 0.71 0.57 - 1.25 mg/dL [facility] Glucose 98 70 - 105 mg/dL [facility] Calcium 8.5 8.4 - 10.2 mg/dL [facility] EGFR 164Comment: ESTIMATED GFR IS mL/min/1.73 sq m [facility] NOT ACCURATE CREATININE [facility] CLEARANCE IN PREDICTING GLOMERULAR FILTRATION RATE. ESTIMATED GFR IS NOT APPLICABLE FOR DIALYSIS PATIENTS. Specimen Blood Performing Organization Address [facility] one Number [address] [facility] * Urinalysis w/Microscopic + Reflex to Culture (10/27/2019 4:59 AM TRANSACTION ADVISORY SERVICES MANAGER) Color, UA Yellow [facility] Clarity, UA Clear [facility] Specific [place], UA 1.012 1.001 - 1.035 [facility] pH, UA 7.0 5.0 - 8.0 [facility] Protein, UA Negative Negative [facility] Glucose, UA >1000 mg/dL (A) Negative [facility] Ketones, UA 40 mg/dL (A) Negative [facility] Bilirubin, UA Negative Negative [facility] Blood, UA Negative Negative [facility] Nitrite, UA Negative Negative [facility] Leukocytes, UA Negative Negative [facility] Urobilinogen, UA 3.0 (H) 0.2 - 1.0 mg/dL [facility] RBC, UA Comment: RBC:0-1/HPF [facility] WBC, UA Comment: WBC:1-2/HPF [facility] Specimen Source [facility] Specimen Urine Performing Organization Address City/State/Zipcode Ph one Number [place] [address] [facility] * Rapid drug screen, urine (10/27/2019 4:59 AM TRANSACTION ADVISORY SERVICES MANAGER) Barbiturate Screen Negative Negative [facility] Benzodiazepine Screen Negative Negative [facility] Cocaine (Metab.) Screen Negative Negative [facility] Methadone Screen Negative Negative [facility] Opiate Screen Negative Negative [facility] Cannabinoid Screen Positive (A) Negative [facility] Amph/Methamph Screen Positive (A) Negative [facility] Phencyclidine Screen Negative Negative [facility] Specimen Urine Narrative Performed At [facility] Cocaine 300 ng/mL [facility] Lxguazpjoqb29 n g/mL [id number] ng/mL Barbiturate 200 ng/ mL Dyyqpbszhcrda78 ng/ mL Opiate3 00 ng/mL Methadone 300 n g/mL Amphetamine/ 1000 ng/mL Methamphetamine This assay provides an unconfirmed qual itative test result for the clinical management of patients in emergency sit uations. Chain of custody not maintained. Some bfdo-fzy-bbqhjig medications, as w ell as adulterants, may cause inaccurate results. Clinical correlation should be applied. A more comprehensive drug screen or confirmation of a detected dr brandon may be performed upon request. Performing Organization Address [facility] Ph one Number [place] [address] [facility] * Blood Culture - Routine (Left Venipuncture) (10/27/2019 4:56 AM TRANSACTION ADVISORY SERVICES MANAGER) Only the most recent of 2 results within the time period is included. Result No growth in 5 days [facility] Specimen Blood Performing Organization Address [facility] Ph one Number [address] [facility] * CBC with platelet count + automated diff (10/27/2019 4:24 AM TRANSACTION ADVISORY SERVICES MANAGER) Only the most recent of 2 results within the time period is included. WBC 7.7 3.5 - 10.5 K/L [facility] RBC 4.07 (L) 4.63 - 6.08 M/L [facility] Hemoglobin 12.7 (L) 13.7 - 17.5 GM/DL [facility] Hematocrit 34.1 (L) 40.1 - 51.0 % [facility] MCV 83.8 79.0 - 92.2 fL [facility] MCH 31.2 25.7 - 32.2 pg [facility] MCHC 37.2 (H) 32.3 - 36.5 GM/DL [facility] RDW 11.4 (L) 11.6 - 14.4 % [facility] Platelets 240 150 - 450 K/CU MM [facility] MPV 9.4 9.4 - 12.4 fL [facility] nRBC 0 0 - 0 /100 WBC [facility] % Neutros 56 % [facility] % Lymphs 36 % [facility] % Monos 6 % [facility] % Eos 1 % [facility] % Baso 0 % [facility] # Neutros 4.34 1.78 - 5.38 K/L [facility] # Lymphs 2.80 1.32 - 3.57 K/L [facility] # Monos 0.44 0.30 - 0.82 K/L [facility] # Eos 0.07 0.04 - 0.54 K/L [facility] # Baso 0.02 0.01 - 0.08 K/L [facility] Immature 0 0 - 1 % [facility] Granulocytes-Relative [facility] Specimen Blood Performing Organization Address City/State/Zipcode Ph one Number [facility] [address] [place], [place] [address] [facility] * Blood gas, venous (10/27/2019 4:24 AM TRANSACTION ADVISORY SERVICES MANAGER) Only the most recent of 2 results within the time period is included. , Julio 7.47 (H) 7.32 - 7.42 [facility] pCO2, Julio 42 41 - 51 mmHg [facility] pO2, Julio 61 (H) 25 - 40 mmHg [facility] O2 Sat, Julio 92.7 (H) 40.0 - 70.0 % [facility] HCO3, Julio 30 (H) 21 - 29 mmol/L [facility] Base Excess, Julio 5.3 (H) -2.0 - 3.0 mmol/L [facility] Patient Temperature 37.0 C [facility] FIO2 21.0 % [facility] Specimen Blood Performing Organization Address [facility] one Number [place] [address] [phone] [place] [address] * Ketone, blood (10/27/2019 4:24 AM TRANSACTION ADVISORY SERVICES MANAGER) Only the most recent of 2 results within the time period is included. Ketones, Blood 0.2 <0.4 mmol/L [facility] Specimen Blood Performing Organization Address City/[facility] one Number [place] [address] [facility] * TSH/Free T4 If Indicated (10/27/2019 12:29 AM TRANSACTION ADVISORY SERVICES MANAGER) TSH 0.97 0.35 - 4.94 uIU/mL [facility] Specimen Blood Performing Organization Address City/[facility] Ph one Number [place] [address] [facility] * Troponin I (10/27/2019 12:29 AM TRANSACTION ADVISORY SERVICES MANAGER) Troponin I <0.01 0.00 - 0.03 ng/mL [facility] Specimen Blood Narrative Performed At Troponin I (TnI) levels must be interpreted in the co ntext of the presenting [facility] symptoms and the clinical findings. Elevated TnI leve ls indicate myocardial [facility] damage, but are not specific for ischem ic heart disease. Elevated TnI levels are seen in patients with other cardiac con ditions (including myocarditis and congestive heart failure), and slight T nI elevations occur in patients with other conditions, including sepsis, albin al failure, acidosis, acute neurological disease, and persistent tachyarrhythmia . Performing Organization Address City/[facility] Ph one Number [address] [facility] * Lactic acid, venous (10/27/2019 12:29 AM TRANSACTION ADVISORY SERVICES MANAGER) Lactate, Venous 1.8 0.5 - 2.2 mmol/L [facility] Specimen Blood Performing Organization Address [facility] Ph one Number [address] [facility] * Potassium (10/27/2019 12:29 AM TRANSACTION ADVISORY SERVICES MANAGER) Potassium 2.7 (L) 3.5 - 5.1 meq/L [facility] Specimen Blood Performing Organization Address [facility] Ph one Number [address] [facility] * Phosphorus (10/27/2019 12:29 AM TRANSACTION ADVISORY SERVICES MANAGER) Phosphorus 3.2 2.3 - 4.7 mg/dL [facility] Specimen Blood Performing Organization Address City/[facility] Ph one Number [address] [facility] * Lipase (10/27/2019 12:29 AM TRANSACTION ADVISORY SERVICES MANAGER) Lipase 7 (L) 8 - 78 U/L [facility] Specimen Blood Performing Organization Address City/[facility] Ph one Number [facility] [address] [facility] * Hemoglobin A1c (10/27/2019 12:29 AM TRANSACTION ADVISORY SERVICES MANAGER) Hemoglobin A1C 8.7 (H) 4.3 - 6.1 % [facility] Specimen Blood Performing Organization Address City/[facility] Ph one Number [address] [facility] * Amylase (10/27/2019 12:29 AM TRANSACTION ADVISORY SERVICES MANAGER) Amylase 28 25 - 125 U/L [facility] Specimen Blood Performing Organization Address [facility] one Number [address] [facility] * Hepatic function panel (10/27/2019 12:29 AM TRANSACTION ADVISORY SERVICES MANAGER) Protein, Total 6.9 6.0 - 8.3 gm/dL [facility] Albumin 4.4 3.5 - 5.0 g/dL [facility] Total Bilirubin 0.4 0.2 - 1.2 mg/dL [facility] Bilirubin, Direct 0.2 0.1 - 0.5 mg/dL [facility] Alkaline Phosphatase 81 40 - 150 U/L [facility] AST 15 5 - 34 U/L [facility] ALT 13 6 - 55 U/L [facility] Specimen Blood Performing Organization Address [facility] Ph one Number [address] [facility] after 07/17/2019 Insurance Payer Benefit Subscriber ID Type Phone Address Plan / Group [employer] - MGD CARE [employer] COH xxxxxxxxxxx HMO/POS NETWORK BLUE CROSS/BLUE SHIELD BCBS PPO xxxxxxxxxxxx PPO [address] [place] [address] CHOICE [phone] Advance Directives For more information, please contact: [facility] [address] [place] [address] Date Inactivated Comments Code Status Date Activated 10/28/2019 8:20 PM Full Code 10/26/2019 11:48 PM This code status was determined by: Patient 03/11/2018 4:41 PM Full Code 03/09/2018 1:27 AM This code status was determined by: Patient
--- OUTSIDE RECORDS SUMMARY | 2020-07-17 14:53 | XMS REPORT | Continuity of Care Document ---
Author Author [facility] t Organization [facility] Address [address] [place] [address] Phone Unavailable Care Team Providers Care Package Dye Stand Loader Name Role Phone NO, PCP PCP Unavailable Gemini Pozo Attphys Garry Smith MD, Aracelis Attphys ISA PIEDRA Attphys Unavailable Esther De Leon MD, Isa Attphys [phone] Zenaida DOWLING, Veronica Attphys [phone] Chelsea DOWLING, Edith Hassan Attphys Sixto Stewart DO Attphys Per DAVID Attphys Unavailable Harvey JACOB Attphys Unavailable Khurram MIRANDA Attphys Unavailable Carissa ARIAS Attphys Unavailable FREDY WHIPPLE Attphys Unavailable ANA CAMEJO Attphys Unavailable Marco Antonio Reina Attphys Unavailable Garry Smith MD, Aracelis Admphys ISA PIEDRA Admphys Unavailable FREDY WHIPPLE Admphys Unavailable ANA CAMEJO Admphys Unavailable Marco Antonio Reina Admphys Unavailable Payers Payer Name Policy Type Policy Number Effective Date Expiration Date S eli Covid19 Hrsa Uninsured [id number] I [facility] [id number] [facility] CIG - MGD [facility]xxxHMO/POS xxxxxx xxxxx [facility] BLUE CROSS/BLUE SHIELDBCBS PPO POS EPO C [id number] [id number], [place] [address] xxxxxxxxxxxx [facility] [id number] 2018 00:00:00 [facility] [id number] 2018 00:00: 00 [facility] [employer] [facility] [id number] 2017 00:00:00 [facility] Problems Condition Name Condition Details Condition Category Status Onset Date Resolution Date Last Treatment Date Treating Clinician Comments Source Hypoglycemia due to type 1 diabetes mellitus Hypoglyce bruce due to type 1 diabetes mellitus Disease Active 2019-10-28 00:00:00 [facility] Gastroparesis Gastroparesis Disease Active 2019-10-27 00:00:00 [facility] Methamphetamine abuse Methamphetamine abuse Disease Active 201 07-23-17 00:00:00 [facility] Marijuana abuse Marijuana abuse Disease Active 2019-10-27 00:00:00 [facility] Medically noncompliant Medically noncompliant Disease Active 2019-10-27 00:00:00 [facility] Diabetic ketoacidosis Diabetic ketoacidosis Disease Active 201 07-23-16 00:00:00 [facility] DKA (diabetic ketoacidoses) DKA (diabetic ketoacidoses) Disease Active 2018-03-09 00:00:00 [facility] High anion gap metabolic acidosis High anion gap metabolic acido sis Disease Active 2018-03-09 00:00:00 [facility] Hyperglycemia Hyperglycemia Disease Active 2018-03-09 00:00:00 [facility] Diabetic ketoacidosis DKA (diabetic ketoacidoses) Problem Acti ve 2015-12-28 00:00:00 [facility] Diabetic ketoacidosis Diabetic keto-acidosis Problem Active 26-07-09 00:00:00 [facility] Dehydration Dehydration Problem Active [facility] Noncompliance with medication regimen Non compliance w medic ation regimen Problem Active [facility] Vomiting Vomiting Problem Active [facility] Urinary tract infection UTI (urinary tract infection) Problem Active [facility] Tachycardia Problem Active [facility] Allergies, Adverse Reactions, Alerts Allergy Name Allergy Type Status Severity Reaction(s) Onset Date Inacti ve Date Treating Clinician Comments Source No Known Allergies DA Active U 2019-01-03 00:00:00 [facility] No Known Allergies DA Active U 2018-10-05 00:00:00 [facility] Family History Family Member Diagnosis Comments Start Date Stop Date Source Natural father Diabetes [facility] Natural mother Arthritis [facility] Social History Social Habit Start Date Stop Date Quantity Comments Source Sex Assigned At [facility] Cigarettes smoked current (pack per day) - Reported 00:00:00 2018-03-09 00:00:00 [facility] Smoking Status Start Date Stop Date Source Current every day smoker 2018-03-09 00:00:00 [facility] Medications Ordered Medication Name Filled Medication Name Start Date Stop Da te Current Medication? Ordering Clinician Indication Dosage Frequency Signature (SIG) Comments Components Source ketone blood test Strp 2019-10-28 00:00:00 Yes 1{strip} 1 strip by Miscellaneous route as needed. [facility] glucagon 1 mg injection 2019-10-28 00:00:00 2019-10-28 23:59:00 No 1mg Inject 1 mg intramuscularly once for 1 dose. [facility] Insulin Detemir (Levemir) 100 Unit/1 Ml VIAL Insulin D etemir (Levemir) 100 Unit/1 Ml VIAL 2018-07-26 10:21:00 Yes 14 Every 12 Hours [facility] Famotidine Famotidine 2018-07-26 10:21:00 2018-09-09 00:00:00 No 20 Twice Daily Before Meals [facility] insulin NPH 100 unit/mL (3 mL) InPn 2018-03-09 01:31:53 Yes type 1 diabetes mellitus 15U Q.5D Inject 15 Units subcutaneously 2 (two) times daily. [facility] regular (HUMULIN R,NOVOLIN R) 100 unit/mL injection 2018-03-09 01:31:10 Yes Inject sub cutaneously 3 (three) times daily before meals Use as directed. Sliding scale . [facility] Insulin Human Nph (Humulin N) 100 Units/Ml ML Insulin Human Nph (Humulin N) 100 Units/Ml ML 2017-11-13 08:18:00 2018-05-16 00:00:00 No 15 Every 12 Hours [facility] Insulin Regular, Human (Humulin R) 100 Unit/1 Ml VIAL Insulin Regular, Human (Humulin R) 100 Unit/1 Ml VIAL 2017-11-13 08:18:00 2018-05-16 00:00:00 No 0 Before Meals And At Bedtime [facility] Metoclopramide Hcl Metoclopramide Hcl 2017-11-13 08:18:00 6 00:00:00 No 10 Three Times Daily With Meals as needed f or Nausea And Vomiting [facility] Insulin Detemir Insulin Detemir 2017-01-05 17:35:00 2017-11-13 00:00:00 No 14 Bedtime [facility] Insulin Human Lispro (Humalog) 100 Units/Ml ML Insulin Human Lispro (Humalog) 100 Units/Ml ML 2017-01-05 17:35:00 2017-11-13 00:00:00 No 0 Before Meals And At Bedtime [facility] Insulin Detemir Insulin Detemir 2017-01-05 17:35:00 2017-11-08 00:00:00 No 10 Every Morning [facility] Potassium Chloride (Klor-Con M20) 20 Meq TABCR Potassi um Chloride (Klor-Con M20) 20 Meq TABCR 2017-01-05 17:35:00 2017-11-08 00:00:00 No 20 Use As Directed [facility] Insulin Detemir Insulin Detemir 2016-01-02 14:07:00 2017-11-13 00:00:00 No 10 Every Morning [facility] Insulin Detemir Insulin Detemir 2016-01-02 14:07:00 2017-01-05 00:00:00 No 16 Bedtime [facility] Insulin Detemir (Levemir) 100 Unit/1 Ml VIAL Insulin D etemir (Levemir) 100 Unit/1 Ml VIAL 2016-01-01 10:33:00 2016-01-01 00:00:00 No 1 0 Every Morning [facility] Insulin Detemir (Levemir) 100 Unit/1 Ml VIAL Insulin D etemir (Levemir) 100 Unit/1 Ml VIAL 2016-01-01 10:33:00 2016-01-01 00:00:00 No 16 Bedtime [facility] Insulin Lispro (Humalog) 100 Unit/1 Ml CARTRIDGE Insul in Lispro (Humalog) 100 Unit/1 Ml CARTRIDGE Yes [facility] Metoclopramide Hcl (Reglan) 5 Mg TABLET Metoclopramide Hcl ( Reglan) 5 Mg TABLET Yes 5 Before Meals And At Bedtime [facility] Ondansetron Hcl Ondansetron Hcl Yes 4 Three Times A Day as needed for Nausea And Vomiting [facility] Insulin Glargine (Lantus 3ML Pen) 100 Units/1 Ml INJ I nsulin Glargine (Lantus 3ML Pen) 100 Units/1 Ml INJ 2018-07-26 00:00:00 No 12 Twice A Day [facility] Ondansetron (Zofran Odt) 4 Mg TAB.RAPDIS Ondansetron ( Zofran Odt) 4 Mg TAB.RAPDIS 2018-07-23 00:00:00 No 4 Every 6 Hours [facility] Insulin Detemir (Levemir) 100 Unit/1 Ml VIAL Insulin D etemir (Levemir) 100 Unit/1 Ml VIAL 2018-05-16 00:00:00 No [facility] Insulin Aspart (Novolog) 100 Unit/1 Ml CARTRIDGE Insul in Aspart (Novolog) 100 Unit/1 Ml CARTRIDGE 2016-01-01 00:00:00 No 10 Befo re Meals [facility] Insulin Detemir (Levemir) 100 Unit/1 Ml VIAL Insulin D etemir (Levemir) 100 Unit/1 Ml VIAL 2016-01-01 00:00:00 No 10 Every Mor mis [facility] Insulin Detemir (Levemir) 100 Unit/1 Ml VIAL Insulin D etemir (Levemir) 100 Unit/1 Ml VIAL 2016-01-01 00:00:00 No 16 Bedtime [facility] Insulin Regular, Human (Novolin R) 100 Unit/1 Ml VIAL Insulin Regular, Human (Novolin R) 100 Unit/1 Ml VIAL 2015-07-24 00:00:00 No [facility] Vital Signs Vital Name Observation Time Observation Value Comments Source Body Temperature 2020-06-12 01:03:00 96.7 [degF] [facility] Weight 2020-05-12 19:56:00 145 [lb_av] [facility] BMI (Body Mass Index) 2020-05-12 19:56:00 21.4 kg/m2 [facility] Systolic blood pressure 2019-10-28 12:34:00 114 mm[Hg] [facility] Diastolic blood pressure 2019-10-28 12:34:00 73 mm[Hg] [facility] Heart rate 2019-10-28 12:34:00 79 /min [facility] Body temperature 2019-10-28 12:34:00 35.94 Shaina [facility] Respiratory rate 2019-10-28 12:34:00 18 /min [facility] Oxygen saturation in Arterial blood by Pulse oximetry 2018-11 12:34:00 100 /min [facility] Body weight Measured 2019-10-28 05:36:00 59 kg [facility] BMI 2019-10-28 05:36:00 18.14 kg/m2 [facility] Body height 2019-10-28 00:00:00 180.3 cm [facility] Procedures Procedure Date / Time Performed Performing Clinician [facility] e RHYTHM STRIP - SCAN 2019-10-30 09:11:22 ProviderSylvia [facility] POCT-GLUCOSE METER 2019-10-28 12:35:00 Yonathan Stewart [facility] POCT-GLUCOSE METER 2019-10-28 08:57:00 Yonathan Stewart [facility] BASIC METABOLIC PANEL (7) 2019-10-28 04:59:00 Leatha Green [facility] MAGNESIUM 2019-10-28 04:59:00 Leatha Green [facility] POCT-GLUCOSE METER 2019-10-27 22:23:00 Yonathan Stewart [facility] POCT-GLUCOSE METER 2019-10-27 17:18:00 Yonathan Stewart [facility] POCT-GLUCOSE METER 2019-10-27 12:21:00 Yonathan Stewart [facility] POCT-GLUCOSE METER 2019-10-27 11:52:00 Yonathan Stewart [facility] POCT-GLUCOSE METER 2019-10-27 10:19:00 Diya Estevez i [facility] POCT-GLUCOSE METER 2019-10-27 09:10:00 Isa Piedra [facility] POCT-GLUCOSE METER 2019-10-27 07:56:00 Isa Piedra [facility] POCT-GLUCOSE METER 2019-10-27 06:13:00 [facility] URINALYSIS W/ REFLEX URINE CULTURE 2019-10-27 04:59:00 Dick Sanders [facility] RAPID DRUG SCREEN, URINE 2019-10-27 04:59:00 Alexsandra Sanders [facility] POCT-GLUCOSE METER 2019-10-27 04:59:00 [facility] 2019-10-27 04:56:00 Alexsandra Sanders [facility] BASIC METABOLIC PANEL (7) 2019-10-27 04:24:00 Alexsandra Sanders CH, I [facility] MAGNESIUM 2019-10-27 04:24:00 Alexsandra Sanders [facility] BLOOD GAS, VENOUS 2019-10-27 04:24:00 Alexsandra Sanders [facility] KETONE, BLOOD 2019-10-27 04:24:00 Alexsandra Sanders [facility] CBC W/PLT COUNT & AUTO DIFFERENTIAL 2019-10-27 04:24:00 Alexsandra Sanders [facility] POCT-GLUCOSE METER 2019-10-27 02:32:00 Esther De Leon [facility] POCT-GLUCOSE METER 2019-10-27 01:31:00 Cuong Pied[facility] BLOOD GAS, VENOUS 2019-10-27 00:41:00 Alexsandra Sanders [facility] BLOOD CULTURE 2019-10-27 00:29:00 Alexsandra Sanders [facility] POTASSIUM 2019-10-27 00:29:00 Alexsandra Sanders [facility] PHOSPHORUS 2019-10-27 00:29:00 Alexsandra Sanders [facility] KETONE, BLOOD 2019-10-27 00:29:00 Alexsandra Sanders [facility] BASIC METABOLIC PANEL (7) 2019-10-27 00:29:00 Alexsandra Sanders CH, I [facility] MAGNESIUM 2019-10-27 00:29:00 Alexsandra Sanders [facility] LACTIC ACID, VENOUS 2019-10-27 00:29:00 Alexsandra Sanders [facility] AMYLASE 2019-10-27 00:29:00 Alexsadnra Sanders [facility] LIPASE 2019-10-27 00:29:00 Alexsandra Sanders [facility] TSH/FREE T4 IF INDICATED 2019-10-27 00:29:00 [place] [facility] HEMOGLOBIN A1C 2019-10-27 00:29:00 [facility] 2019-10-27 [facility]:29[facility] 2019-10-27 00:29:00 Alexsandra Sanders [facility] CBC W/PLT COUNT & AUTO DIFFERENTIAL 2019-10-27 00:29:00 Alexsandra Sanders [facility] POCT-GLUCOSE METER 2019-10-27 00:01:00 Isa Piedra [facility] Computed tomography of brain without radiopaque contrast 201 07-23-16 00:00:00 IMELDA DAVID [facility] Encounters Start Date/Time End Date/Time [facility] ID Source 2020-06-15 00:00:00 2020-06-15 00:00:00 Transition of Care Gemini Pozo [id number] 2020-06-12 02:00:00 2020-06-14 17:44:00 Hospital Encounter Aracelis Alston [facility] ([facility]) [id number] 2020-06-11 22:45:00 2020-06-11 22:45:00 Registered Emergency Room [facility] [id number] [facility] 2020-05-12 19:50:00 2020-05-12 21:30:00 Departed Emergency Room [facility] [id number] [facility] 2019-10-26 16:48:00 2019-10-26 22:20:00 Departed Emergency Room 1 IMELDA DAVID [facility] [id number] I [facility] 2019-06-22 20:40:00 2019-06-24 12:22:00 Discharged Inpatient 1 OLIVA JACOB [facility] [id number] [facility] 2019-05-19 13:54:00 2019-05-21 12:10:00 Discharged Inpatient 1 KEYON MIRANDA [facility] [id number] [facility] 2019-03-02 19:48:00 2019-03-03 08:28:00 Departed Emergency Room [facility] [id number] [facility] 2019-01-30 20:21:00 2019-02-02 13:21:00 Discharged Inpatient [facility] [id number] [facility] 2018-09-09 23:28:00 2018-09-13 10:43:00 Discharged Inpatient 1 SAMUEL ARIAS [facility] [id number] [facility] 2018-07-23 14:06:00 2018-07-26 12:33:00 Discharged Inpatient [facility] [id number] [facility] 2018-05-16 13:33:00 2018-05-19 09:34:00 Discharged Inpatient [facility] [id number] [facility] 2018-04-23 20:40:00 2018-04-23 22:07:00 Departed Emergency Room [facility] [id number] [facility] 2018-03-08 19:46:00 2018-03-09 00:27:00 Departed Emergency Room [facility] [id number] [facility] 2018-01-26 20:28:00 2018-01-29 15:45:00 Discharged Inpatient ER SAMUEL ARIAS [facility] [id number] [facility] 2017-11-08 23:30:00 2017-11-13 10:52:00 Discharged Inpatient ER ANA CAMEJO [facility] [id number] [facility] Results Test Description Test Time Test Comments Results Result Comments Source Blood leukocytes automated count (number/volume) 2020-06-11 23:10:00 Test Item White Blood Count (test code = 6690-2) 19.34 4.8-10.8 [facility] count (number/volume)2020-06-11 23:10:00* Test Item Value Reference Range Interpretation Comments Red Blood Count (test code = 789-8) 5.16 4.3-5.7 [facility] measurement (moles/volume)2020-06-11 23:10:00* Test Item Value Reference Range Interpretation Comments Hemoglobin (test code = 55345-3) 16.0 14.0-18.0 [facility] hematocrit (volume fraction)2020-06-11 23:10:00* Test Item Value Reference Range Interpretation Comments Hematocrit (test code = 4544-3) 42.9 38.2-49.6 [facility] erythrocyte mean corpuscular [id number] 23:10:00* Test Item Value Reference Range Interpretation Comments Mean Corpuscular Volume (test code = 787-2) 83.1 81-99 [facility] eryth[facility] mean corpuscular hemoglobin (mass per erythrocyte)2020-06-11 23:10:00* Test Item Value Reference Range Interpretation Comments Mean Corpuscular Hemoglobin (test code = 785-6) 31.0 28-32 [facility] eryth[facility] mean corpuscular hemoglobin concentration measurement (mass/volume)2020-06-11 23:10:00* Test Item Value Reference Range Interpretation Comments Mean Corpuscular Hemoglobin Concent (test code = 786-4) 37.3 31-35 [facility] AustinRDW CbmFm-Lvy2888-25-01 23:10:00* Test Item Value Reference Range Interpretation Comments Red Cell Distribution Width (test code = 89529-5) 13.4 11.7 -14.4 [facility] platelet count (count/volume)2020-06-11 23:10:00* Test Item Value Reference Range Interpretation Comments Platelet Count (test code = 777-3) 351 140-360 [facility] segmented neutrophil count as percentage of total [id number] 23:10:00* Test Item Value Reference Range Interpretation Comments Neutrophils (%) (Auto) (test code = 78788-2) 59.0 38.7-80.0 [facility] lymphocyte count as percentage ot total yzrwqbmwnu4957-26-20 23:10:00* Test Item Value Reference Range Interpretation Comments Lymphocytes (%) (Auto) (test code = 736-9) 3.3 18.0-39.1 [facility] monocyte count as percentage of total lyqaxrsivw4179-74-73 23:10:00* Test Item Value Reference Range Interpretation Comments Monocytes (%) (Auto) (test code = 5905-5) 6.0 4.4-11.3 [facility] eosinophil count as percentage of total fvdngqbuxd4327-82-89 23:10:00* Test Item Value Reference Range Interpretation Comments Eosinophils (%) (Auto) (test code = 713-8) 30.8 0.0-6.0 [facility] basophil count as percentage of total ddsyzrqdju6347-92-64 23:10:00* Test Item Value Reference Range Interpretation Comments Basophils (%) (Auto) (test code = 706-2) 0.4 0.0-1.0 [facility] AustinFluor[facility] procedure less than one hour [id number] 23:10:00* Test Item Value Reference Range Interpretation Comments IM GRANULOCYTES % (test code = IM GRANULOCYTES %) 0.5 0.0- 1.0 [facility] neutrophil count 2020-06-11 23:10:00* Test Item Value Reference Range Interpretation Comments Neutrophils # (Auto) (test code = 751-8) 11.4 2.1-6.9 [facility] lymphocytes count (number/volume) 2020-06-11 23:10:00* Test Item Value Reference Range Interpretation Comments Lymphocytes # (Auto) (test code = 93496-9) 0.6 1.0-3.2 [facility] monocytes automated count (number/volume)2020-06-11 23:10:00* Test Item Value Reference Range Interpretation Comments Monocytes # (Auto) (test code = 742-7) 1.2 0.2-0.8 [facility] eosinophil count 2020-06-11 23:10:00* Test Item Value Reference Range Interpretation Comments Eosinophils # (Auto) (test code = 711-2) 6.0 0.0-0.4 [facility] basophil count (count/volume)2020-06-11 23:10:00* Test Item Value Reference Range Interpretation Comments Basophils # (Auto) (test code = 704-7) 0.1 0.0-0.1 [facility] AustinFluor[facility] procedure less than one hour [id number] 23:10:00* Test Item Value Reference Range Interpretation Comments Absolute Immature Granulocyte (auto (navya t code = Absolute Immature Granulocyte (auto) 0.10 0-0.1 [facility] leukocytes automated count (number/volume)2020-05-12 20:04:00* Test Item Value Reference Range Interpretation Comments White Blood Count (test code = 6690-2) 9.89 4.8-10.8 [facility] erythrocytes automated count (number/volume)2020-05-12 20:04:00* Test Item Value Reference Range Interpretation Comments Red Blood Count (test code = 789-8) 5.99 4.3-5.7 [facility] hemoglobin measurement (moles/volume)2020-05-12 20:04:00* Test Item Value Reference Range Interpretation Comments Hemoglobin (test code = 70280-9) 18.0 14.0-18.0 [facility] hematocrit (volume fraction)2020-05-12 20:04:00* Test Item Value Reference Range Interpretation Comments Hematocrit (test code = 4544-3) 49.6 38.2-49.6 [facility] Austin[facility] erythrocyte mean corpuscular vmtcig8224-48-36 20:04:00* Test Item Value Reference Range Interpretation Comments Mean Corpuscular Volume (test code = 787-2) 82.8 81-99 [facility] erythrocyte mean corpuscular hemoglobin (mass per erythrocyte)2020-05-12 20:04:00* Test Item Value Reference Range Interpretation Comments Mean Corpuscular Hemoglobin (test code = 785-6) 30.1 28-32 [facility] Austin[facility] erythrocyte mean corpuscular hemoglobin concentration measurement (mass/volume)2020-05-12 20:04:00* Test Item Value Reference Range Interpretation Comments Mean Corpuscular Hemoglobin Concent (test code = 786-4) 36.3 31-35 [facility] AustinRDW GvyVk-Ccz5979-33-02 20:04:00* Test Item Value Reference Range Interpretation Comments Red Cell Distribution Width (test code = 45678-6) 12.2 11.7 -14.4 [facility] platelet count (count/volume)2020-05-12 20:04:00* Test Item Value Reference Range Interpretation Comments Platelet Count (test code = 777-3) 272 140-360 [facility] blood segmented neutrophil count as percentage of total nmqvbjphhn3720-65-65 20:04:00* Test Item Value Reference Range Interpretation Comments Neutrophils (%) (Auto) (test code = 39172-5) 68.4 38.7-80.0 [facility] lymphocyte count as percentage ot total pofdgumlze2083-66-32 20:04:00* Test Item Value Reference Range Interpretation Comments Lymphocytes (%) (Auto) (test code = 736-9) 21.7 18.0-39.1 [facility] Austin[facility] blood monocyte count as percentage of total furxvwfhcc2764-28-16 20:04:00* Test Item Value Reference Range Interpretation Comments Monocytes (%) (Auto) (test code = 5905-5) 8.7 4.4-11.3 [facility] Austin[facility] blood eosinophil count as percentage of total kmlxfjjdsj8675-20-48 20:04:00* Test Item Value Reference Range Interpretation Comments Eosinophils (%) (Auto) (test code = 713-8) 0.5 0.0-6.0 [facility] basophil count as percentage of total vioaumqyrk3922-73-66 20:04:00* Test Item Value Reference Range Interpretation Comments Basophils (%) (Auto) (test code = 706-2) 0.1 0.0-1.0 [facility] AustinFluoroscopic procedure less than one hour krbnzycx9257-67-89 20:04:00* Test Item Value Reference Range Interpretation Comments IM GRANULOCYTES % (test code = IM GRANULOCYTES %) 0.6 0.0- 1.0 [facility]Aut[facility] neutrophil count 2020-05-12 20:04:00* Test Item Value Reference Range Interpretation Comments Neutrophils # (Auto) (test code = 751-8) 6.8 2.1-6.9 [facility] AustinBlood lymphocytes count (number/volume) 2020-05-12 20:04:00* Test Item Value Reference Range Interpretation Comments Lymphocytes # (Auto) (test code = 68621-3) 2.2 1.0-3.2 [facility] AustinBlood monocytes automated count (number/volume)2020-05-12 20:04:00* Test Item Value Reference Range Interpretation Comments Monocytes # (Auto) (test code = 742-7) 0.9 0.2-0.8 [facility] 2020-05-12 20:04:00* Test Item Value Reference Range Interpretation Comments Eosinophils # (Auto) (test code = 711-2) 0.1 0.0-0.4 [facility] AustinAutomated blood basophil count (count/volume)2020-05-12 20:04:00* Test Item Value Reference Range Interpretation Comments Basophils # (Auto) (test code = 704-7) 0.0 0.0-0.1 [facility] AustinFluoroscopic procedure less than one hour dphvllow1543-94-44 20:04:00* Test Item Value Reference Range Interpretation Comments Absolute Immature Granulocyte (auto (navya t code = Absolute Immature Granulocyte (auto) 0.06 0-0.1 [facility] AustinUrine color gpopxvyritjfo4561-95-13 20:04:00* Test Item Value Reference Range Interpretation Comments Urine Color (test code = 5778-6) YELLOW YELLOW [facility] AustinUrine rdnkwdc6386-64-29 20:04:00* Test Item Value Reference Range Interpretation Comments Urine Clarity (test code = 01398-1) SL CLOUDY CLEAR [facility] Center[facility] gravity of Urine by Test strip 2020-05-12 20:04:00* Test Item Value Reference Range Interpretation Comments Urine Specific [place] (test code = 5811-5) 1.030 1.010-1.02 5 [facility] AustinUrine pH measurement by automated test gnzwp4954-71-11 20:04:00* Test Item Value Reference Range Interpretation Comments Urine pH (test code = 30383-2) 6.5 5-7 [facility] AustinUrine leukocyte esterase detection by vzsueoqt3030-06-36 20:04:00* Test Item Value Reference Range Interpretation Comments Urine Leukocyte Esterase (test code = 5799-2) NEGATIVE NEGATIVE [facility] AustinUrine nitrite uajokdjwm0827-86-56 20:04:00* Test Item Value Reference Range Interpretation Comments Urine Nitrite (test code = 62891-9) NEGATIVE NEGATIVE [facility] AustinUrine protein measurement by test strip (mass/volume)2020-05-12 20:04:00* Test Item Value Reference Range Interpretation Comments Urine Protein (test code = 5804-0) 1+ NEGATIVE [facility] AustinUrine glucose xxdubxptr0319-14-54 20:04:00* Test Item Value Reference Range Interpretation Comments Urine Glucose (UA) (test code = 2349-9) 2+ NEGATIVE [facility] AustinUrine ketones detection by automated test [id number] 20:04:00* Test Item Value Reference Range Interpretation Comments Urine Ketones (test code = 24419-0) 3+ NEGATIVE [facility] AustinUrine urobilinogen measurement by test strip (mass/volume)2020-05-12 20:04:00* Test Item Value Reference Range Interpretation Comments Urine Urobilinogen (test code = 84702-7) 0.2 0.2-1 [facility] AustinUrine total bilirubin measurement (mass/volume)2020-05-12 20:04:00* Test Item Value Reference Range Interpretation Comments Urine Bilirubin (test code = 1978-6) MODERATE NEGATIVE [facility] AustinUrine erythrocytes kqbzzkfqt5318-28-61 20:04:00* Test Item Value Reference Range Interpretation Comments Urine Blood (test code = 51718-7) NEGATIVE NEGATIVE [facility] AustinAutomated urine sediment leukocyte count by microscopy (number/high power field)2020-05-12 20:04:00* Test Item Value Reference Range Interpretation Comments Urine WBC (test code = 5821-4) NONE 0-5 [facility] AustinErythrocytes detection in urine sediment by light zraweqoaed2724-58-30 20:04:00* Test Item Value Reference Range Interpretation Comments Urine RBC (test code = 05852-1) 0-5 0-5 [facility] AustinBacteria detection in urine sediment by light kzkmxajdjt7461-11-24 20:04:00* Test Item Value Reference Range Interpretation Comments Urine Bacteria (test code = 11741-9) MODERATE NONE [facility] AustinEpithelial cells detection in urine sediment by light excgeramjt7643-00-76 20:04:00* Test Item Value Reference Range Interpretation Comments Urine Epithelial Cells (test code = 10195-7) NONE NONE [facility]ererum or plasma sodium measurement (moles/volume)2020-05-12 20:04:00* Test Item Value Reference Range Interpretation Comments Sodium Level (test code = 2951-2) 124 136-145 [facility]ererum or plasma potassium measurement (moles/volume)2020-05-12 20:04:00* Test Item Value Reference Range Interpretation Comments Potassium Level (test code = 2823-3) 4.5 3.5-5.1 [facility] Centererum or plasma chloride measurement (moles/volume)2020-05-12 20:04:00* Test Item Value Reference Range Interpretation Comments Chloride Level (test code = 2075-0) 91 98-107 [facility] Centererum or plasma carbon dioxide, total measurement (moles/volume)2020-05-12 20:04:00* Test Item Value Reference Range Interpretation Comments Carbon Dioxide Level (test code = 2028-9) 13 22-29 [facility]ererum or plasma anion cil6738-06-05 20:04:00* Test Item Value Reference Range Interpretation Comments Anion Gap (test code = 86199-3) 24.5 8-16 [facility]ererum or plasma urea nitrogen measurement (mass/volume)2020-05-12 20:04:00* Test Item Value Reference Range Interpretation Comments Blood Urea Nitrogen (test code = 3094-0) 26 7-26 [facility]ererum or plasma creatinine measurement (mass/volume)2020-05-12 20:04:00* Test Item Value Reference Range Interpretation Comments Creatinine (test code = 2160-0) 1.42 0.72-1.25 [facility] Centererum or plasma urea nitrogen/creatinine mass wgani2234-02-17 20:04:00* Test Item Value Reference Range Interpretation Comments BUN/Creatinine Ratio (test code = 3097-3) 18 6-25 [facility] AustinEstimated glomerular filtration rate (GFR) atljvkmrelzdx7142-22-11 20:04:00* Test Item Value Reference Range Interpretation Comments Estimat Glomerular Filtration Rate (test code = 084107340) 60 >60 Ranges were taken from the National Kidney Disease Education Program and the [facility] Kidney Foundation literature.Reference ranges:60 or greater: Udilph97-72 ( for 3 consecutive months): Chronic kidney disease 15 or less: Kidney failureAscension [facility]on Medical Center AustinGlucose tkemrfbpooo2043-04-34 20:04:00* Test Item Value Reference Range Interpretation Comments Glucose Level (test code = RHG6444) 351 74-118 [facility]ererum or plasma calcium measurement (mass/volume)2020-05-12 20:04:00* Test Item Value Reference Range Interpretation Comments Calcium Level (test code = 47980-0) 9.9 8.4-10.2 [facility] Centererum or plasma total bilirubin measurement (mass/volume)2020-05-12 20:04:00* Test Item Value Reference Range Interpretation Comments Total Bilirubin (test code = 1975-2) 1.5 0.2-1.2 [facility] AustinFluoroscopic procedure less than one hour jzvyjgvv2682-68-37 20:04:00* Test Item Value Reference Range Interpretation Comments Aspartate Amino Transf (AST/SGOT) (test code = Aspartate Amino Transf (AST/SGOT)) 19 5-34 [facility] Centererum or plasma alanine aminotransferase measurement (enzymatic activity/volume)2020-05-12 20:04:00* Test Item Value Reference Range Interpretation Comments Alanine Aminotransferase (ALT/SGPT) (test code = 1742-6) 24 0-55 [facility]ererum or plasma protein measurement (mass/volume)2020-05-12 20:04:00* Test Item Value Reference Range Interpretation Comments Total Protein (test code = 2885-2) 8.6 6.5-8.1 [facility] Centererum or plasma albumin measurement (mass/volume)2020-05-12 20:04:00* Test Item Value Reference Range Interpretation Comments Albumin (test code = 1751-7) 5.0 3.5-5.0 [facility] AustinPlasma globulin measurement (mass/volume) 2020-05-12 20:04:00* Test Item Value Reference Range Interpretation Comments Globulin (test code = 81145-9) 3.6 2.3-3.5 [facility] Centererum or plasma albumin/globulin mass cojks8457-94-13 20:04:00* Test Item Value Reference Range Interpretation Comments Albumin/Globulin Ratio (test code = 1759-0) 1.4 0.8-2.0 [facility] Centererum or plasma alkaline phosphatase measurement (enzymatic activity/volume)2020-05-12 20:04:00* Test Item Value Reference Range Interpretation Comments Alkaline Phosphatase (test code = 6768-6) 108 40-150 [facility] Centererum or plasma creatine kinase measurement (enzymatic activity/volume)2020-05-12 20:04:00* Test Item Value Reference Range Interpretation Comments Creatine Kinase (test code = 2157-6) 77 30-200 [facility] Centererum or plasma creatine kinase MB measurement (mass/volume)2020-05-12 20:04:00* Test Item Value Reference Range Interpretation Comments Creatine Kinase MB (test code = 00945-0) 1.60 0-5.0 [facility] AustinTroponin I measurement by highly sensitive enzyme mnlcnlbtpas3026-93-07 20:04:00* Test Item Value Reference Range Interpretation Comments Troponin I (test code = 93219-4) < 0.001 0-0.300 [facility] AustinUrine color zvzumbpgrkznn8749-90-10 20:04:00* Test Item Value Reference Range Interpretation Comments Urine Color (test code = 5778-6) YELLOW YELLOW [facility] AustinUrine qfjcwzw9238-86-07 20:04:00* Test Item Value Reference Range Interpretation Comments Urine Clarity (test code = 12321-8) SL CLOUDY CLEAR [facility] Centerpecific gravity of Urine by Test strip 2020-05-12 20:04:00* Test Item Value Reference Range Interpretation Comments Urine Specific [place] (test code = 5811-5) 1.030 1.010-1.02 5 [facility] AustinUrine pH measurement by automated test mpesf1253-19-61 20:04:00* Test Item Value Reference Range Interpretation Comments Urine pH (test code = 31984-2) 6.5 5-7 [facility] AustinUrine leukocyte esterase detection by iotmsbas2199-19-76 20:04:00* Test Item Value Reference Range Interpretation Comments Urine Leukocyte Esterase (test code = 5799-2) NEGATIVE NEGATIVE [facility] AustinUrine nitrite pvoooqwwl0618-79-56 20:04:00* Test Item Value Reference Range Interpretation Comments Urine Nitrite (test code = 97289-2) NEGATIVE NEGATIVE [facility] AustinUrine protein measurement by test strip (mass/volume)2020-05-12 20:04:00* Test Item Value Reference Range Interpretation Comments Urine Protein (test code = 5804-0) 1+ NEGATIVE [facility] AustinUrine glucose iqnefyrkz5786-44-70 20:04:00* Test Item Value Reference Range Interpretation Comments Urine Glucose (UA) (test code = 2349-9) 2+ NEGATIVE [facility] AustinUrine ketones detection by automated test fosob8558-99-81 20:04:00* Test Item Value Reference Range Interpretation Comments Urine Ketones (test code = 69720-9) 3+ NEGATIVE [facility] AustinUrine urobilinogen measurement by test strip (mass/volume)2020-05-12 20:04:00* Test Item Value Reference Range Interpretation Comments Urine Urobilinogen (test code = 12076-3) 0.2 0.2-1 [facility] AustinUrine total bilirubin measurement (mass/volume)2020-05-12 20:04:00* Test Item Value Reference Range Interpretation Comments Urine Bilirubin (test code = 1978-6) MODERATE NEGATIVE [facility] AustinUrine erythrocytes tbcufibfk8345-24-34 20:04:00* Test Item Value Reference Range Interpretation Comments Urine Blood (test code = 82048-7) NEGATIVE NEGATIVE [facility] AustinAutomated urine sediment leukocyte count by microscopy (number/high power field)2020-05-12 20:04:00* Test Item Value Reference Range Interpretation Comments Urine WBC (test code = 5821-4) NONE 0-5 [facility] AustinErythrocytes detection in urine sediment by light lcydmzuviy6775-80-22 20:04:00* Test Item Value Reference Range Interpretation Comments Urine RBC (test code = 84374-2) 0-5 0-5 [facility] AustinBacteria detection in urine sediment by light etxiamjkrv2420-47-13 20:04:00* Test Item Value Reference Range Interpretation Comments Urine Bacteria (test code = 20050-4) MODERATE NONE [facility] AustinEpithelial cells detection in urine sediment by light xipbehmheh7343-55-64 20:04:00* Test Item Value Reference Range Interpretation Comments Urine Epithelial Cells (test code = 89590-3) NONE NONE [facility]ererum or plasma sodium measurement (moles/volume)2020-05-12 20:04:00* Test Item Value Reference Range Interpretation Comments Sodium Level (test code = 2951-2) 124 136-145 [facility]ererum or plasma potassium measurement (moles/volume)2020-05-12 20:04:00* Test Item Value Reference Range Interpretation Comments Potassium Level (test code = 2823-3) 4.5 3.5-5.1 [facility] Centererum or plasma chloride measurement (moles/volume)2020-05-12 20:04:00* Test Item Value Reference Range Interpretation Comments Chloride Level (test code = 2075-0) 91 98-107 [facility] Centererum or plasma carbon dioxide, total measurement (moles/volume)2020-05-12 20:04:00* Test Item Value Reference Range Interpretation Comments Carbon Dioxide Level (test code = 2028-9) 13 22-29 [facility]ererum or plasma anion fcw0773-02-94 20:04:00* Test Item Value Reference Range Interpretation Comments Anion Gap (test code = 91948-3) 24.5 8-16 [facility] Centererum or plasma urea nitrogen measurement (mass/volume)2020-05-12 20:04:00* Test Item Value Reference Range Interpretation Comments Blood Urea Nitrogen (test code = 3094-0) 26 7-26 [facility]ererum or plasma creatinine measurement (mass/volume)2020-05-12 20:04:00* Test Item Value Reference Range Interpretation Comments Creatinine (test code = 2160-0) 1.42 0.72-1.25 [facility]ererum or plasma urea nitrogen/creatinine mass bykcv1420-43-42 20:04:00* Test Item Value Reference Range Interpretation Comments BUN/Creatinine Ratio (test code = 3097-3) 18 6-25 [facility] AustinEstimated glomerular filtration rate (GFR) tgrqqkvaswctc3261-95-41 20:04:00* Test Item Value Reference Range Interpretation Comments Estimat Glomerular Filtration Rate (test code = 248130636) 60 >60 Ranges were taken from the National Kidney Disease Education Program and the [facility] Kid[facility] Foundation literature.Reference ranges:60 or greater: Zejctk27-99 ( for 3 consecutive months): Chronic kidney disease 15 or less: Kidney failureAscension Seton Medical Center AustinGlucose pkmexiryign4353-09-63 20:04:00* Test Item Value Reference Range Interpretation Comments Glucose Level (test code = YXW7453) 351 74-118 [facility]ererum or plasma calcium measurement (mass/volume)2020-05-12 20:04:00* Test Item Value Reference Range Interpretation Comments Calcium Level (test code = 60129-0) 9.9 8.4-10.2 [facility] Centererum or plasma total bilirubin measurement (mass/volume)2020-05-12 20:04:00* Test Item Value Reference Range Interpretation Comments Total Bilirubin (test code = 1975-2) 1.5 0.2-1.2 [facility] AustinFluoroscopic procedure less than one hour vxxabthc4081-94-80 20:04:00* Test Item Value Reference Range Interpretation Comments Aspartate Amino Transf (AST/SGOT) (test code = Aspartate Amino Transf (AST/SGOT)) 19 5-34 [facility] Centererum or plasma alanine aminotransferase measurement (enzymatic activity/volume)2020-05-12 20:04:00* Test Item Value Reference Range Interpretation Comments Alanine Aminotransferase (ALT/SGPT) (test code = 1742-6) 24 0-55 [facility]ererum or plasma protein measurement (mass/volume)2020-05-12 20:04:00* Test Item Value Reference Range Interpretation Comments Total Protein (test code = 2885-2) 8.6 6.5-8.1 [facility] Centererum or plasma albumin measurement (mass/volume)2020-05-12 20:04:00* Test Item Value Reference Range Interpretation Comments Albumin (test code = 1751-7) 5.0 3.5-5.0 [facility] AustinPlasma globulin measurement (mass/volume) 2020-05-12 20:04:00* Test Item Value Reference Range Interpretation Comments Globulin (test code = 28554-4) 3.6 2.3-3.5 [facility] Centererum or plasma albumin/globulin mass gnchi4990-01-77 20:04:00* Test Item Value Reference Range Interpretation Comments Albumin/Globulin Ratio (test code = 1759-0) 1.4 0.8-2.0 [facility] Centererum or plasma alkaline phosphatase measurement (enzymatic activity/volume)2020-05-12 20:04:00* Test Item Value Reference Range Interpretation Comments Alkaline Phosphatase (test code = 6768-6) 108 40-150 [facility] Centererum or plasma creatine kinase measurement (enzymatic activity/volume)2020-05-12 20:04:00* Test Item Value Reference Range Interpretation Comments Creatine Kinase (test code = 2157-6) 77 30-200 [facility] Centererum or plasma creatine kinase MB measurement (mass/volume)2020-05-12 20:04:00* Test Item Value Reference Range Interpretation Comments Creatine Kinase MB (test code = 62431-1) 1.60 0-5.0 [facility] AustinTroponin I measurement by highly sensitive enzyme zesjsoswort6569-74-99 20:04:00* Test Item Value Reference Range Interpretation Comments Troponin I (test code = 31728-7) < 0.001 0-0.300 [facility] AustinFluoroscopic procedure less than one hour fzvgmpyh1433-32-44 20:04:00* Test Item Value Reference Range Interpretation Comments Coronavirus (PCR) (test code = Coronavirus (PCR)) NOT DETECTED NOTD ETECTED SARS-COV2/RT-PCRNegative results do not preclude SARS-CoV-2 infection and should not be used as the sole basis for patient management decisions. Negative result s must be combined with clinical observations, patient history, and epidemiologi megha information. A false negative result may occur if a specimen is improperly c ollected, transported or handled.The limit of detection for this assay is 250 co pies/mLThe SARS-CoV-2 test is a rapid, real-time RT-PCR test intended for the qu alitative detection of nucleic acid from SARS-CoV-2 in nasopharyngeal swab speci men collected from individuals suspected of COVID-19 by their healthcare provide r. This test has not been Food and Drug Administration (FDA) cleared or approved and has been authorized by FDA under an Emergency Use Authorization (EUA). This EUA will be effective until the declaration that circumstances exist justifying the authorization of the emergency use of in vitro diagnostic test for detectio n and or diagnosis of COVID-19 is terminated under section 564(b) of the Act, or the the EUA is revoked under 564(g) of the ACT.Testing performed by [address] [address]FGBAscension [facility]on [facility] Center AustinCapillary blood glucose measurement by glucometer (mass/volume)2020-05-12 20:03:00* Test Item Value Reference Range Interpretation Comments Bedside Glucose (test code = 75726-1) 333 70-120 Meter ID: [id number] Seton Medical Center AustinCapillary blood glucose measurement by glucometer (mass/volume)2020-05-12 20:03:00* Test Item Value Reference Range Interpretation Comments Bedside Glucose (test code = 05334-0) 333 70-120 Meter ID: [id number] Seton Medical Center Austin- XR CHEST 1 V 2020-01-07 16:34:00 FAX: Aleksandr Sánchez MD Cando: B St: PRE Name: [facility] : [birth year] Age/S: 24/M [address] [facility] Unit #: [id number] Loc: QUY[place] [address] Phys: Aleksandr Sánchez MD Acct: [id number] Dis Date: Status: PRE ER PHONE #: [phone] Exam Date: 01/07/2020 1559 FAX #: [phone] Reason: ABDOMINAL PAIN EXAMS: CPT CODE: [id number] XR CHEST 1 V 53231 REASON FOR EXAM: ABDOMINAL PAIN Exam Order [...] Technologist: RT RC(R) Trnscrd Date/Time/By: 01/07/2020 ( 7672) : By: [email or web address] Orig Print D/T: S: 01/07/2020 (2839) PAGE 1 Signed Report Blood Culture - Routine (Left Venipuncture)2019-11-01 08:00:00* Test Item Value Reference Range Interpretation Comments Result (test code = 6463-4) No growth in 5 days [facility] UFCFKVK3352[facility]63-79 08:00:00* Test Item Value Reference Range Interpretation Comments CULTURE (BEAKER) (test code = 1095) No growth in 5 days BLOOD VACBFGF4078-82-80 04:01:00* Test Item Value Reference Range Interpretation Comments CULTURE (BEAKER) (test code = 1095) No growth in 5 days POC-Glucose splps8141-49-49 12:47:00* Test Item Value Reference Range Interpretation Comments POC-Glucose Meter (test code = 1538) 159 mg/dL 70-110 H : TESTED AT [facility] [address] [facility], [address]: Suspender Maker/Brewery Technician ID = [id number] for TOMMY SHARPE Lab Interpretation (test code = 11387-7) Abnormal [facility] XRKUJ9201-89-57 12:47:00* Test Item Value Reference Range Interpretation Comments POC-GLUCOSE METER (BEAKER) (test code = 1538) 159 mg/dL 70-110 H : TESTED AT [place] [id number] [facility], [address]: Suspender Maker/Brewery Technician ID = [id number] for TOMMY SHARPE POCT-GLUCOSE DDWBC2896-97-47 09:08:00* Test Item Value Reference Range Interpretation Comments POC-GLUCOSE METER (BEAKER) (test code = 1538) 140 mg/dL 70-110 H : TESTED AT [facility] [address] [facility], [address]: Suspender Maker/Brewery Technician ID = [id number] for TOMMY SHARPE Basic Metabolic Oxgsx6821-90-75 06:23:00* Test Item Value Reference Range Interpretation Comments Sodium (test code = 2951-2) 135 meq/L 136-145 L Potassium (test code = 2823-3) 3.8 meq/L 3.5-5.1 Chloride (test code = 5-0) 101 meq/L 98-107 CO2 (test code = 2027-9) 28 meq/L 22-29 BUN (test code = 3094-0) 13 mg/dL 7-21 Creatinine (test code = 2160-0) 0.71 mg/dL 0.57-1.25 Glucose (test code = 2345-7) 98 mg/dL 70-105 Calcium (test code = 14807-4) 8.5 mg/dL 8.4-10.2 EGFR (test code = 60188-2) 164 mL/min/1.73 sq m ESTIMATED GFR IS NOT ACCURATE CREATININE CLEARANCE IN PREDICTING GLOMERULAR FILTRATION RATE. ESTIMATED GFR IS NOT APPLICABLE FOR DIALYSIS PATIENTS. Lab Interpretation (test code = 41075-3) Abnormal [facility]2019-[facility] 06:23:00* Test Item Value Reference Range Interpretation Comments MAGNESIUM (BEAKER) (test code = 627) 2.1 mg/dL 1.6-2.6 BASIC METABOLIC [id number] 06:23:00* Test Item Value Reference Range Interpretation [...] GFR IS NOT APPLICABLE FOR DIALYSIS PATIENTS. Ptlshpiyk3252-97-51 06:16:00* Test Item Value Reference Range Interpretation Comments Magnesium (test code = 22109-7) 2.1 mg/dL 1.6-2.6 Lab Interpretation (test code = 43978-4) Normal [facility]2019-[facility]-18 06:16:00* Test Item Value Reference Range Interpretation Comments MAGNESIUM (BEAKER) (test code = 627) 2.1 mg/dL 1.6-2.6 POCT-GLUCOSE [id number] 22:35:00* Test Item Value Reference Range Interpretation Comments POC-GLUCOSE METER (BEAKER) (test code = 1538) 224 mg/dL 70-110 H : TESTED AT [facility] [address] [facility], [address]: Suspender Maker/Brewery Technician ID = [id number] for ANGE GREEN POCT-GLUCOSE [id number] 17:32:00* Test Item Value Reference Range Interpretation Comments POC-GLUCOSE METER (BEAKER) (test code = 1538) 211 mg/dL 70-110 H : TESTED AT [facility] [address] [facility], [address]: Suspender Maker/Brewery Technician ID = [id number] for DA PACKER Hemoglobin [id number] 15:14:00* Test Item Value Reference Range Interpretation Comments Hemoglobin A1C (test code = 4548-4) 8.7 % 4.3-6.1 H Lab Interpretation (test code = 67105-1) [facility]normal [facility] [id number] 15:14:00* Test Item Value Reference Range Interpretation Comments HEMOGLOBIN A1C (BEAKER) (test code = 368) 8.7 % 4.3-6.1 H POCT-GLUCOSE [id number] 12:33:00* Test Item Value Reference Range Interpretation Comments POC-GLUCOSE METER (BEAKER) (test code = 1538) 251 mg/dL 70-110 H : TESTED AT [facility] [address] [facility], [address]: Suspender Maker/Brewery Technician ID = [id number] for VENU PORTILLO POCT-GLUCOSE [id number] 12:07:00* Test Item Value Reference Range Interpretation Comments POC-GLUCOSE METER (BEAKER) (test code = 1538) 282 mg/dL 70-110 H : TESTED AT [facility] [address] [facility], [address]: Suspender Maker/Brewery Technician ID = [id number] for DA PACKER Urinalysis w/Microscopic + Reflex to [id number] 11:37:00* Test Item Value Reference Range Interpretation Comments Color, UA (test code = 5778-6) Yellow Clarity, UA (test code = 5767-9) Clear Specific [place], UA (test code = 5811-5) 1.012 1.001-1.035 pH, UA (test code = 5803-2) 7.0 5.0-8.0 Protein, UA (test code = 43573-9) Negative Negative Glucose, UA (test code = 365) >1000 mg/dL Negative A Ketones, UA (test code = 2514-8) 40 mg/dL Negative A Bilirubin, UA (test code = 21153-8) Negative Negative Blood, UA (test code = 23295-6) Negative Negative Nitrite, UA (test code = 5802-4) Negative Negative Leukocytes, UA (test code = 5799-2) Negative Negative Urobilinogen, UA (test code = 15180-1) 3.0 mg/dL 0.2-1 H RBC, UA (test code = 08127-6) RBC:0-1/HPF WBC, UA (test code = 5821-4) WBC:1-2/HPF Specimen Source (test code = 2795) Lab Interpretation (test code = 02249-6) Abnormal [facility]/ REFLEX URINE [id number] 11:37:00* Test Item Value Reference Range Interpretation [...] WBC:1-2/HPF SOURCE(BEAKER) (test code = 2795) POCT-GLUCOSE [id number] 11:23:00* Test Item Value Reference Range Interpretation Comments POC-GLUCOSE METER (BEAKER) (test code = 1538) 281 mg/dL 70-110 H : TESTED AT [place] [id number] [facility], [address]: Suspender Maker/Brewery Technician ID = [id number] for DA PACKER POCT-GLUCOSE [id number] 09:21:00* Test Item Value Reference Range Interpretation Comments POC-GLUCOSE METER (BEAKER) (test code = 1538) 199 mg/dL 70-110 H : TESTED AT [facility] [address] [facility], [address]: Suspender Maker/Brewery Technician ID = [id number] for LINDSEY VENU POCT-GLUCOSE [id number] 08:09:00* Test Item Value Reference Range Interpretation Comments POC-GLUCOSE METER (BEAKER) (test code = 1538) 58 mg/dL 70-110 L : TESTED AT [facility] [address] [facility], [address]: Suspender Maker/Brewery Technician ID = [id number] for DA PACKER Rapid drug screen, [id number] 07:15:00* Test Item Value Reference Range Interpretation Comments Barbiturate Screen (test code = 65539-5) Negative Negative Benzodiazepine Screen (test code = 19461-0) Negative Negative Cocaine (Metab.) Screen (test code = 3397-7) Negative Negative Methadone Screen (test code = 56029-2) Negative Negative Opiate Screen (test code = 87484-5) Negative Negative Cannabinoid Screen (test code = 18564-3) Positive Negative A Amph/Methamph Screen (test code = 74718-2) Positive Negative A Phencyclidine Screen (test code = 21789-2) Negative Negative BEAU (test code = BEAU) DRUG CUTOFF C ONC.Cocaine 300 ng/mL Cannabinoid 50 ng/mLBenzodiazepine 200 ng/mLBarbiturate 200 ng/mLPhencyclidine 25 ng/mLOpiate 300 ng/mLMethadone 300 ng/mLAmphetamine/ 1000 ng/mL Methamphetamine This assay provides an unconfirmed qualitative test result for the clinical management of patients in emergency situations. Chain of custody not maintained. Some flyr-zfx-mzrdpla medications, as well as adulterants, may cause inaccurate results. Clinical correlation should be applied. A more comprehensive drug screen or confirmation of a detected drug may be performed upon request. Lab Interpretation (test code = 22082-9) Abnormal [facility] CenterRAPID DRUG SCREEN, [id number] 07:15:00* Test Item Value Reference Range Interpretation [...] situations. Chain of custody not maintained. Some ncsi-itz-cdpwwhy me dications, as well as adulterants, may cause inaccurate results. Clinical correl ation should be applied. A more comprehensive drug screen or confirmation of a d etected drug may be performed upon request.POCT-GLUCOSE [id number] 06:24:00 * Test Item Value Reference Range Interpretation Comments POC-GLUCOSE METER (BEAKER) (test code = 1538) 74 mg/dL 70-110 : TESTED AT [facility] [address] [facility], [address]: Suspender Maker/Brewery Technician ID = [id number] for ANGE GREEN [id number] 06:23:00* Test Item Value Reference Range Interpretation Comments MAGNESIUM (BEAKER) (test code = 627) 1.9 mg/dL 1.6-2.6 BASIC METABOLIC [id number] 06:23:00* Test Item Value Reference Range Interpretation [...] IS NOT APPLICABLE FOR DIALYSIS PATIENTS. Ketone, [id number] 05:42:00* Test Item Value Reference Range Interpretation Comments Ketones, Blood (test code = 1103) 0.2 mmol/L <0.4 Lab Interpretation (test code = 95645-0) Normal [facility] CenterKETONE, [id number] 05:42:00* Test Item Value Reference Range Interpretation Comments KETONES, BLOOD (BEAKER) (test code = 1103) 0.2 mmol/L <0.4 CBC with platelet count + automated [id number] 05:33:00* Test Item Value Reference Range Interpretation [...] 450 K/CU MM MPV (test code = 00905-6) 9.4 fL 9.4-12.4 nRBC (test code = [...] % 0-1 Lab Interpretation (test code = 29072-1) Abnormal [facility] W/PLT COUNT & AUTO [id number] 05:33:00* Test Item Value Reference Range Interpretation [...] code = 2801) 0 % 0-1 POCT-GLUCOSE [id number] 05:17:00* Test Item Value Reference Range Interpretation Comments POC-GLUCOSE METER (BEAKER) (test code = 1538) 252 mg/dL 70-110 H : TESTED AT [facility] [address] [facility], [address]: Suspender Maker/Brewery Technician ID = [id number] for PA GIBBONS Blood gas, [id number] 05:15:00* Test Item Value Reference Range Interpretation Comments pH, Julio (test code = 2746-6) 7.47 7.32-7.42 H pCO2, Julio (test code = 755) 42 41- 51 mmHg pO2, Julio (test code = 2705-2) 61 25- 40 mmHg H O2 Sat, Julio (test code = 2711-0) 92.7 % 40-70 H HCO3, Julio (test code = 47848-8) 30 mmol/L 21-29 H Base Excess, Julio (test code = 1927-3) 5.3 mmol/L -2-3 H Patient Temperature (test code = 8310-5) 37.0 C FIO2 (test code = 1819) 21 % Lab Interpretation (test code = 90093-9) Abnormal [facility] Center[facility]OOD GAS, [id number] 05:15:00* Test Item Value Reference Range Interpretation [...] (test code = 1819) 21.0 % POCT-GLUCOSE [id number] 03:15:00* Test Item Value Reference Range Interpretation Comments POC-GLUCOSE METER (BEAKER) (test code = 1538) 304 mg/dL 70-110 H : TESTED AT [address], [address]: Suspender Maker/Brewery Technician ID = [id number] for PA GIBBONS POCT-GLUCOSE [id number] 01:45:00* Test Item Value Reference Range Interpretation Comments POC-GLUCOSE METER (BEAKER) (test code = 1538) 218 mg/dL 70-110 H : TESTED AT [address], [address]: Suspender Maker/Brewery Technician ID = [id number] for PA GIBBONS TSH/Free T4 If Wyoyjztow9895-24-91 01:38:00* Test Item Value Reference Range Interpretation Comments TSH (test code = 77279-1) 0.97 0.35- 4.94 uIU/mL Lab Interpretation (test code = 84915-4) [facility] T[facility] IF [id number] 01:38:00* Test Item Value Reference Range Interpretation Comments THYROID STIMULATING HORMONE (BEAKER) (test code = 772) 0.97 uIU/mL 0.35-4.94 Lactic acid, [id number] 01:13:00* Test Item Value Reference Range Interpretation Comments Lactate, Venous (test code = 2872) 1.8 mmol/L 0.5-2.2 Lab Interpretation (test code = 62835-6) [facility] ACID, [id number] 01:13:00* Test Item Value Reference Range Interpretation Comments LACTATE BLOOD VENOUS (2) (BEAKER) (test code = 2872) 1.8 mmol/L 0 .5-2.2 Troponin [id number] 01:10:00* Test Item Value Reference Range Interpretation Comments Troponin I (test code = 17047-0) <0.01 0-0.03 BEAU (test code = BEAU) [...] persistent tachyarrhythmia. Lab Interpretation (test code = 12176-6) [facility]TR[facility] [id number] 01:10:00* Test Item Value Reference Range Interpretation [...] acute neurological disease, and per sistent tachyarrhythmia.KETONE, [id number] 01:05:00* Test Item Value Reference Range Interpretation Comments KETONES, BLOOD (BEAKER) (test code = 1103) 0.3 mmol/L <0.4 Hepatic function [id number] 01:03:00* Test Item Value Reference Range Interpretation Comments Protein, Total (test code = 2885-2) 6.9 6.0- 8.3 gm/dL Albumin (test code = 43755-7) 4.4 g/dL 3.5-5 Total Bilirubin (test code = 1975-2) 0.4 mg/dL 0.2-1.2 Bilirubin, Direct (test code = 1967-7) 0.2 mg/dL 0.1-0.5 Alkaline Phosphatase (test code = 6768-6) 81 U/L 40-150 AST (test code = 1920-8) 15 U/L 5-34 ALT (test code = 1742-6) 13 U/L 6-55 Lab Interpretation (test code = 30821-1) [facility] HospitalAmylase2019-12-17 01:03:00* Test Item Value Reference Range Interpretation Comments Amylase (test code = 1798-8) 28 U/L 25-125 Lab Interpretation (test code = 13216-1) [facility] HospitalLipase2019-12-17 01:03:00* Test Item Value Reference Range Interpretation Comments Lipase (test code = 3040-3) 7 U/L 8-78 L Lab Interpretation (test code = 59810-5) Abnormal [facility]Phosphorus2019-12-17 01:03:00* Test Item Value Reference Range Interpretation Comments Phosphorus (test code = 2777-1) 3.2 mg/dL 2.3-4.7 Lab Interpretation (test code = 74511-7) [facility]Potassium2019-12-17 01:03:00* Test Item Value Reference Range Interpretation Comments Potassium (test code = 2823-3) 2.7 meq/L 3.5-5.1 L Lab Interpretation (test code = 48902-1) Abnormal [facility] HospitalPOTASSIUM2019-12-17 01:03:00* Test Item Value Reference Range Interpretation Comments POTASSIUM (BEAKER) (test code = 379) 2.7 meq/L 3.5-5.1 L [id number] 01:03:00* Test Item Value Reference Range Interpretation Comments MAGNESIUM (BEAKER) (test code = 627) 2.0 mg/dL 1.6-2.6 [id number] 01:03:00* Test Item Value Reference Range Interpretation Comments PHOSPHORUS (BEAKER) (test code = 604) 3.2 mg/dL 2.3-4.7 BASIC METABOLIC [id number] 01:03:00* Test Item Value Reference Range Interpretation [...] NOT APPLICABLE FOR DIALYSIS PATIENTS. HEPATIC FUNCTION [id number] 01:03:00* Test Item Value Reference Range Interpretation [...] (test code = 347) 13 U/L 6-55 [id number] 01:03:00* Test Item Value Reference Range Interpretation Comments AMYLASE (BEAKER) (test code = 349) 28 U/L 25-125 [id number] 01:03:00* Test Item Value Reference Range Interpretation Comments LIPASE (BEAKER) (test code = 749) 7 U/L 8-78 L [id number] 01:00:00* Test Item Value Reference Range Interpretation Comments MAGNESIUM (BEAKER) (test code = 627) 2.0 mg/dL 1.6-2.6 BASIC METABOLIC [id number] 01:00:00* Test Item Value Reference Range Interpretation [...] DIALYSIS PATIENTS. CBC W/PLT COUNT & AUTO [id number] 00:59:00* Test Item Value Reference Range Interpretation [...] = 2801) 1 % 0-1 BLOOD GAS, [id number] 00:58:00* Test Item Value Reference Range Interpretation [...] (test code = 1819) 21.0 % POCT-GLUCOSE [id number] 00:13:00* Test Item Value Reference Range Interpretation Comments POC-GLUCOSE METER (BEAKER) (test code = 1538) 43 mg/dL 70-110 L : TESTED AT [address], [address]: Suspender Maker/Brewery Technician ID = [id number] for RADHA TANNER Bedside [id number] 23:04:00* Test Item Value Reference Range Interpretation Comments Bedside Glucose (test code = 36520-8) 84 70-120 Meter ID: [id number] [facility] [id number] 20:01:00 [facility] [address] [address] Patient Name: KEVIN LOMELI MR #: [id number] : 1995 Age/Sex: 24/M Req #: [id number] Adm Physician: Ordered by: IMELDA DAVID MD Report #: [id number] Location: ER Room/Bed: Procedure: [id number] CT/CT BRAIN WO Exam Date: 10/26/19 Exam [...] PY TO: IMELDA DAVID MD Creatine Kinase [id number] 19:35:00* Test Item Value Reference Range Interpretation Comments Creatine Kinase MB (test code = 85048-1) 1.00 0-5.0 [facility] AustinTroponin [id number] 19:35:00* Test Item Value Reference Range Interpretation Comments Troponin I (test code = BLY0656) < 0.001 0-0.300 [facility] AustinCreatine Pprfxo2209-39-06 19:19:00* Test Item Value Reference Range Interpretation Comments Creatine Kinase (test code = 2157-6) 135 30-200 [facility] AustinEthyl Alcohol [id number] 19:18:00* Test Item Value Reference Range Interpretation Comments Ethyl Alcohol Level (test code = 5643-2) < 10.0 0.0-10.0 [facility] AustinUrine [id number] 19:15:00* Test Item Value Reference Range Interpretation Comments Urine WBC (test code = 5821-4) NONE 0-5 [facility] AustinUrine [id number] 19:15:00* Test Item Value Reference Range Interpretation Comments Urine RBC (test code = 01043-2) NONE 0-5 [facility] AustinUrine Sslojurk9767-13-34 19:15:00* Test Item Value Reference Range Interpretation Comments Urine Bacteria (test code = 00781-6) NONE NONE [facility] AustinUrine Epithelial [id number] 19:15:00 * Test Item Value Reference Range Interpretation Comments Urine Epithelial Cells (test code = 27656-7) NONE NONE [facility] AustinUrine Opiates [id number] 19:04:00* Test Item Value Reference Range Interpretation Comments Urine Opiates Screen (test code = 96584-6) NEGATIVE NEGATIVE ALL TESTS PERFORMED MANUALLY ON Simraceway TOX/SEE TESTAsc[facility] Center AustinUrine Barbiturates [id number] 19:04:00* Test Item Value Reference Range Interpretation Comments Urine Barbiturates Screen (test code = 110697382) NEGATIVE NEGA TIVE [facility] AustinU[facility] Phencyclidine [id number] 19:04:00* Test Item Value Reference Range Interpretation Comments Urine Phencyclidine Screen (test code = 04189-2) NEGATIVE NEGAT JESSIKA [facility] AustinU[facility] Amphetamines [id number] 19:04:00* Test Item Value Reference Range Interpretation Comments Urine Amphetamines Screen (test code = 85806-7) NEGATIVE NEGATI VE [facility] AustinU[facility] Methamphetamines [id number] 19:04:00* Test Item Value Reference Range Interpretation Comments Urine Methamphetamines Screen (test code = Urine Metha mphetamines Screen) POSITIVE NEGATIVE H This test provides only a screen. Positive results should be repeated by a confi rmatory test.[facility] AustinUrine Benzodiazepines Screen 2019-10-26 19:04:00* Test Item Value Reference Range Interpretation Comments Urine Benzodiazepines Screen (test code = 79291-4) NEGATIVE NEG ATIVE [facility] AustinU[facility] Cocaine Hlqjht2254-15-40 19:04:00* Test Item Value Reference Range Interpretation Comments Urine Cocaine Screen (test code = 3398-5) NEGATIVE NEGATIVE [facility] AustinUrine Cannabinoids Hxvovv4905-55-05 19:04:00* Test Item Value Reference Range Interpretation Comments Urine Cannabinoids Screen (test code = 31294-8) POSITIVE NEGATI VE H THESE RESULTS ARE FOR MEDICAL TREATMENT ONLYTHIS REPORT CONTAINS UNCONFIR MED SCREENING RESULTS*POSITIVE RESULTS WILL BE CONFIRMED BY REFERENCE LAB UPON R EQUEST CUT-OFFDRUG CLASS CONCENTRATION ng/mLAmphetamines 1000Methamphetamines 1000Cocaine 300Opiate 300Phencyc lidine 25Cannabinoid 50Barbiturates 300Benzodiazepine 300Methadone 300 This test p rovides only a screen. Positive results should be repeated by a confirmatory navya t.[facility] AustinUrine Methadone Fkxwvr4540-61-19 19:04:00* Test Item Value Reference Range Interpretation Comments Urine Methadone Screen (test code = 19100-0) NEGATIVE NEGATIVE THESE RESULTS ARE FOR MEDICAL TREATMENT ONLYTHIS REPORT CONTAINS UNCONFIR MED SCREENING RESULTS*POSITIVE RESULTS WILL BE CONFIRMED BY REFERENCE LAB UPON R EQUEST CUT-OFFDRUG CLASS CONCENTRATION ng/mLAmphetamines 1000Methamphetamines 1000Cocaine Metabolite 300Opiate 300Phencyc lidine 25Cannabinoid 50Barbiturates 300Benzodiazepine 300Methadone 300[facility] PlanoPhosphorus Tlypg1950-79-68 19:03:00* Test Item Value Reference Range Interpretation Comments Phosphorus Level (test code = FVF4252) 1.9 2.3-4.7 L [facility] AustinMagnesium Dbiyg8742-43-60 19:03:00* Test Item Value Reference Range Interpretation Comments Magnesium Level (test code = 92400-0) 1.9 1.3-2.1 [facility] Center[facility] Zldkz9671-14-36 19:02:00* Test Item Value Reference Range Interpretation Comments Sodium Level (test code = 2951-2) 131 136-145 L [facility] AustinPotassium Ysvto0652-44-99 19:02:00* Test Item Value Reference Range Interpretation Comments Potassium Level (test code = 2823-3) 2.7 3.5-5.1 LL Results repeated and called to PAOLA TRAORE at 1901 on 10/26/19 by TRACEY GALINDO. Read back and verified.[facility] AustinChloride Htlbk8230-50-26 19:02:00* Test Item Value Reference Range Interpretation Comments Chloride Level (test code = 2075-0) 89 98-107 L [facility] AustinCarbon Dioxide Ujqiw9683-68-75 19:02:00* Test Item Value Reference Range Interpretation Comments Carbon Dioxide Level (test code = 2028-9) 20 22-29 L [facility] AustinAnion [id number] 19:02:00* Test Item Value Reference Range Interpretation Comments Anion Gap (test code = 61840-4) 24.7 8-16 H [facility] AustinBlood Urea Uxiaaykt9754-01-89 19:02:00* Test Item Value Reference Range Interpretation Comments Blood Urea Nitrogen (test code = 3094-0) 10 7-26 [facility] AustinCreatinine2019-12-16 19:02:00* Test Item Value Reference Range Interpretation Comments Creatinine (test code = 2160-0) 0.99 0.72-1.25 [facility] AustinBUN/Creatinine Oybgh5566-85-17 19:02:00* Test Item Value Reference Range Interpretation Comments BUN/Creatinine Ratio (test code = 3097-3) 10 6-25 [facility] AustinEstimat Glomerular Filtration Rate 2019-10-26 19:02:00* Test Item Value Reference Range Interpretation Comments Estimat Glomerular Filtration Rate (test code = 435144748) > 60 >60 Ranges were taken from the National Kidney Disease Education Program and the [facility] Kidney Foundation literature.Reference ranges:60 or greater: Hwwbdg22-46 ( for 3 consecutive months): Chronic kidney disease 15 or less: Kidney failureAscension Seton Medical Center AustinGlucose Kjqiz5024-16-64 19:02:00* Test Item Value Reference Range Interpretation Comments Glucose Level (test code = UWD1285) 404 74-118 Results repeated and called to PAOLA TRAORE at 1901 on 10/26/19 by TRACEY GALINDO. Read back and verified.[facility] AustinCalcium Mbmes0594-73-94 19:02:00* Test Item Value Reference Range Interpretation Comments Calcium Level (test code = 79568-0) 10.1 8.4-10.2 [facility] AustinTotal Hsintyymo9205-22-36 19:02:00* Test Item Value Reference Range Interpretation Comments Total Bilirubin (test code = 1975-2) 0.5 0.2-1.2 [facility] AustinAspartate Amino Transf (AST/SGOT) 2019-10-26 19:02:00* Test Item Value Reference Range Interpretation Comments Aspartate Amino Transf (AST/SGOT) (test code = Aspartate Amino Transf (AST/SGOT)) 17 5-34 [facility] AustinAlanine Aminotransferase (ALT/SGPT) 2019-10-26 19:02:00* Test Item Value Reference Range Interpretation Comments Alanine Aminotransferase (ALT/SGPT) (test code = 1742-6) 16 0-55 [facility] AustinTotal Jlgktub1482-42-34 19:02:00* Test Item Value Reference Range Interpretation Comments Total Protein (test code = 2885-2) 7.1 6.5-8.1 [facility] AustinAlbumin2019-12-16 19:02:00* Test Item Value Reference Range Interpretation Comments Albumin (test code = 1751-7) 4.4 3.5-5.0 [facility] AustinGlobulin2019-12-16 19:02:00* Test Item Value Reference Range Interpretation Comments Globulin (test code = 27660-6) 2.7 2.3-3.5 [facility] AustinAlbumin/Globulin Tnmpn8920-47-37 19:02:00 * Test Item Value Reference Range Interpretation Comments Albumin/Globulin Ratio (test code = 1759-0) 1.6 0.8-2.0 [facility] AustinAlkaline Vfpxpamgwhj6677-51-95 19:02:00* Test Item Value Reference Range Interpretation Comments Alkaline Phosphatase (test code = 6768-6) 103 40-150 [facility] AustinUrine Ucbkx1457-38-13 18:59:00* Test Item Value Reference Range Interpretation Comments Urine Color (test code = 5778-6) YELLOW YELLOW [facility] AustinUrine Rnjktcg3139-66-50 18:59:00* Test Item Value Reference Range Interpretation Comments Urine Clarity (test code = 15274-1) SL CLOUDY CLEAR H [facility] AustinUrine Specific Ljbnmrc1296-07-51 18:59:00 * Test Item Value Reference Range Interpretation Comments Urine Specific [place] (test code = 5811-5) 1.010 1.010-1.02 5 [facility] AustinUrine [id number] 18:59:00* Test Item Value Reference Range Interpretation Comments Urine pH (test code = 55693-5) 7.5 5-7 [facility] AustinUrine Leukocyte Pjhnfcdp5233-73-14 18:59:00* Test Item Value Reference Range Interpretation Comments Urine Leukocyte Esterase (test code = 5799-2) NEGATIVE NEGATIVE [facility] AustinUrine Yooqvib5038-02-56 18:59:00* Test Item Value Reference Range Interpretation Comments Urine Nitrite (test code = 80096-3) NEGATIVE NEGATIVE [facility] AustinUrine Pmtzogl1919-32-38 18:59:00* Test Item Value Reference Range Interpretation Comments Urine Protein (test code = 5804-0) NEGATIVE NEGATIVE [facility] AustinUrine Glucose (UA)2019-10-26 18:59:00* Test Item Value Reference Range Interpretation Comments Urine Glucose (UA) (test code = 2349-9) 3+ NEGATIVE H [facility] AustinUrine Xrwwlat8628-79-78 18:59:00* Test Item Value Reference Range Interpretation Comments Urine Ketones (test code = 58307-3) 2+ NEGATIVE H [facility] Hzoghlepemph3698-99-48 18:59:00* Test Item Value Reference Range Interpretation Comments Urine Urobilinogen (test code = 89200-2) 1 0.2-1 [facility] AustinUrine Iwjqvzurq6708-73-04 18:59:00* Test Item Value Reference Range Interpretation Comments Urine Bilirubin (test code = 1978-6) NEGATIVE NEGATIVE [facility] AustinUrine Nkwnf7045-54-66 18:59:00* Test Item Value Reference Range Interpretation Comments Urine Blood (test code = 15429-5) NEGATIVE NEGATIVE [facility] AustinLactic Acid Xzdmf2911-07-35 18:57:00* Test Item Value Reference Range Interpretation Comments Lactic Acid Level (test code = Lactic Acid Level) 8.2 0.5- 2.0 HH Results repeated and called to BERNICE DOMINGUEZ at 1856 on 10/26/19 by TRACEY Castillo Read back and verified.[facility] AustinWhite Blood Ccwyn3724-71-23 18:40:00* Test Item Value Reference Range Interpretation Comments White Blood Count (test code = 6690-2) 11.63 4.8-10.8 H [facility] AustinRed Blood Ndlkc6486-94-26 18:40:00* Test Item Value Reference Range Interpretation Comments Red Blood Count (test code = 789-8) 4.80 4.3-5.7 [facility] AustinHemoglobin2019-12-16 18:40:00* Test Item Value Reference Range Interpretation Comments Hemoglobin (test code = 86085-8) 14.8 14.0-18.0 [facility] AustinHematocrit2019-12-16 18:40:00* Test Item Value Reference Range Interpretation Comments Hematocrit (test code = 4544-3) 39.9 38.2-49.6 [facility] AustinMean Corpuscular Jbvwwu1528-75-32 18:40:00* Test Item Value Reference Range Interpretation Comments Mean Corpuscular Volume (test code = 787-2) 83.1 81-99 [facility] AustinMean Corpuscular Omrmmzodbk9503-79-33 18:40:00* Test Item Value Reference Range Interpretation Comments Mean Corpuscular Hemoglobin (test code = 785-6) 30.8 28-32 [facility] AustinMean Corpuscular Hemoglobin Concent 2019-10-26 18:40:00* Test Item Value Reference Range Interpretation Comments Mean Corpuscular Hemoglobin Concent (test code = 786-4) 37.1 31-35 H [facility] AustinRed Cell Distribution Pcfte7414-17-95 18:40:00* Test Item Value Reference Range Interpretation Comments Red Cell Distribution Width (test code = 34648-5) 11.3 11.7 -14.4 L [facility] AustinPlatelet Zmhdt6451-77-11 18:40:00* Test Item Value Reference Range Interpretation Comments Platelet Count (test code = 777-3) 281 140-360 [facility] AustinNeutrophils (%) (Auto)2019-10-26 18:40:00 * Test Item Value Reference Range Interpretation Comments Neutrophils (%) (Auto) (test code = 34199-7) 76.3 38.7-80.0 [facility] AustinLymphocytes (%) (Auto)2019-10-26 18:40:00 * Test Item Value Reference Range Interpretation Comments Lymphocytes (%) (Auto) (test code = 736-9) 16.6 18.0-39.1 L [facility] AustinMonocytes (%) (Auto)2019-10-26 18:40:00* Test Item Value Reference Range Interpretation Comments Monocytes (%) (Auto) (test code = 5905-5) 6.2 4.4-11.3 [facility] AustinEosinophils (%) (Auto)2019-10-26 18:40:00 * Test Item Value Reference Range Interpretation Comments Eosinophils (%) (Auto) (test code = 713-8) 0.2 0.0-6.0 [facility] AustinBasophils (%) (Auto)2019-10-26 18:40:00* Test Item Value Reference Range Interpretation Comments Basophils (%) (Auto) (test code = 706-2) 0.3 0.0-1.0 [facility] AustinIM GRANULOCYTES %2019-10-26 18:40:00* Test Item Value Reference Range Interpretation Comments IM GRANULOCYTES % (test code = IM GRANULOCYTES %) 0.4 0.0- 1.0 [facility] AustinNeutrophils # (Auto)2019-10-26 18:40:00* Test Item Value Reference Range Interpretation Comments Neutrophils # (Auto) (test code = 751-8) 8.9 2.1-6.9 H [facility] AustinLymphocytes # (Auto)2019-10-26 18:40:00* Test Item Value Reference Range Interpretation Comments Lymphocytes # (Auto) (test code = 78669-9) 1.9 1.0-3.2 [facility] AustinMonocytes # (Auto)2019-10-26 18:40:00* Test Item Value Reference Range Interpretation Comments Monocytes # (Auto) (test code = 742-7) 0.7 0.2-0.8 [facility] AustinEosinophils # (Auto)2019-10-26 18:40:00* Test Item Value Reference Range Interpretation Comments Eosinophils # (Auto) (test code = 711-2) 0.0 0.0-0.4 [facility] AustinBasophils # (Auto)2019-10-26 18:40:00* Test Item Value Reference Range Interpretation Comments Basophils # (Auto) (test code = 704-7) 0.0 0.0-0.1 [facility] AustinAbsolute Immature Granulocyte (auto 2019-10-26 18:40:00* Test Item Value Reference Range Interpretation Comments Absolute Immature Granulocyte (auto (navya t code = Absolute Immature Granulocyte (auto) 0.05 0-0.1 [facility] AustinUrine opiates screening nrju8215-80-72 17:30:00* Test Item Value Reference Range Interpretation Comments Urine Opiates Screen (test code = 23432-7) NEGATIVE NEGATIVE ALL TESTS PERFORMED MANUALLY ON [employer] TOX/SEE TESTAsc[facility] AustinBarbiturates screen, mxggq4335-21-14 17:30:00* Test Item Value Reference Range Interpretation Comments Urine Barbiturates Screen (test code = 177291374) NEGATIVE NEGA TIVE [facility] AustinUrine phencyclidine detection by screening nbqzxh7235-88-54 17:30:00* Test Item Value Reference Range Interpretation Comments Urine Phencyclidine Screen (test code = 02024-1) NEGATIVE NEGAT JESSIKA [facility] AustinUrine amphetamines detection by screen method > 1000 ng/kR9593-86-19 17:30:00* Test Item Value Reference Range Interpretation Comments Urine Amphetamines Screen (test code = 26185-4) NEGATIVE NEGATI VE [facility] AustinFluoroscopic procedure less than one hour lpxbvnzd6685-36-46 17:30:00* Test Item Value Reference Range Interpretation Comments Urine Methamphetamines Screen (test code = Urine Metha mphetamines Screen) POSITIVE NEGATIVE This test provides only a screen. Positive results should be repeated by a confi rmatory test.[facility] AustinUrine benzodiazepines detection by screening ejlitz1530-94-71 17:30:00* Test Item Value Reference Range Interpretation Comments Urine Benzodiazepines Screen (test code = 48229-2) NEGATIVE NEG ATIVE [facility] AustinUrine cocaine measurement (mass/volume) 2019-10-26 17:30:00* Test Item Value Reference Range Interpretation Comments Urine Cocaine Screen (test code = 3398-5) NEGATIVE NEGATIVE [facility] AustinUrine cannabinoids detection by screening mqibnm3294-34-73 17:30:00* Test Item Value Reference Range Interpretation Comments Urine Cannabinoids Screen (test code = 39516-9) POSITIVE NEGATI VE THESE RESULTS ARE FOR MEDICAL TREATMENT ONLYTHIS REPORT CONTAINS UNCONFIR MED SCREENING RESULTS*POSITIVE RESULTS WILL BE CONFIRMED BY REFERENCE LAB UPON R EQUEST CUT-OFFDRUG CLASS CONCENTRATION ng/mLAmphetamines 1000Methamphetamines 1000Cocaine 300Opiate 300Phencyc lidine 25Cannabinoid 50Barbiturates 300Benzodiazepine 300Methadone 300 This test p rovides only a screen. Positive results should be repeated by a confirmatory navya t.[facility] AustinUrine methadone rkhgno9910-03-71 17:30:00* Test Item Value Reference Range Interpretation Comments Urine Methadone Screen (test code = 99618-1) NEGATIVE NEGATIVE THESE RESULTS ARE FOR MEDICAL TREATMENT ONLYTHIS REPORT CONTAINS UNCONFIR MED SCREENING RESULTS*POSITIVE RESULTS WILL BE CONFIRMED BY REFERENCE LAB UPON R EQUEST CUT-OFFDRUG CLASS CONCENTRATION ng/mLAmphetamines 1000Methamphetamines 1000Cocaine Metabolite 300Opiate 300Phencyc lidine 25Cannabinoid 50Barbiturates 300Benzodiazepine 300Methadone 300[facility] AustinUrine opiates screening zesp0300-88-58 17:30:00* Test Item Value Reference Range Interpretation Comments Urine Opiates Screen (test code = 12400-2) NEGATIVE NEGATIVE ALL TESTS PERFORMED MANUALLY ON [employer] TOX/SEE TESTAsc[facility] Center AustinBarbiturates screen, vmdnl1501-40-93 17:30:00* Test Item Value Reference Range Interpretation Comments Urine Barbiturates Screen (test code = 781900596) NEGATIVE NEGA TIVE [facility] AustinUrine phencyclidine detection by screening iqmsma8810-08-97 17:30:00* Test Item Value Reference Range Interpretation Comments Urine Phencyclidine Screen (test code = 57281-4) NEGATIVE NEGAT JESSIKA [facility] AustinUrine amphetamines detection by screen method > 1000 ng/dM8504-28-90 17:30:00* Test Item Value Reference Range Interpretation Comments Urine Amphetamines Screen (test code = 93233-1) NEGATIVE NEGATI VE [facility] AustinFluoroscopic procedure less than one hour lhdrpjko8156-60-83 17:30:00* Test Item Value Reference Range Interpretation Comments Urine Methamphetamines Screen (test code = Urine Metha mphetamines Screen) POSITIVE NEGATIVE This test provides only a screen. Positive results should be repeated by a confi rmatory test.[facility] AustinUrine benzodiazepines detection by screening hmcssf4932-90-90 17:30:00* Test Item Value Reference Range Interpretation Comments Urine Benzodiazepines Screen (test code = 93321-6) NEGATIVE NEG ATIVE [facility] AustinUrine cocaine measurement (mass/volume) 2019-10-26 17:30:00* Test Item Value Reference Range Interpretation Comments Urine Cocaine Screen (test code = 3398-5) NEGATIVE NEGATIVE [facility] AustinUrine cannabinoids detection by screening nrelyo1709-85-15 17:30:00* Test Item Value Reference Range Interpretation Comments Urine Cannabinoids Screen (test code = 31643-0) POSITIVE NEGATI VE THESE RESULTS ARE FOR MEDICAL TREATMENT ONLYTHIS REPORT CONTAINS UNCONFIR MED SCREENING RESULTS*POSITIVE RESULTS WILL BE CONFIRMED BY REFERENCE LAB UPON R EQUEST CUT-OFFDRUG CLASS CONCENTRATION ng/mLAmphetamines 1000Methamphetamines 1000Cocaine 300Opiate 300Phencyc lidine 25Cannabinoid 50Barbiturates 300Benzodiazepine 300Methadone 300 This test p rovides only a screen. Positive results should be repeated by a confirmatory navya t.[facility] AustinUrine methadone typisn0649-53-28 17:30:00* Test Item Value Reference Range Interpretation Comments Urine Methadone Screen (test code = 58560-2) NEGATIVE NEGATIVE THESE RESULTS ARE FOR MEDICAL TREATMENT ONLYTHIS REPORT CONTAINS UNCONFIR MED SCREENING RESULTS*POSITIVE RESULTS WILL BE CONFIRMED BY REFERENCE LAB UPON R EQUEST CUT-OFFDRUG CLASS CONCENTRATION ng/mLAmphetamines 1000Methamphetamines 1000Cocaine Metabolite 300Opiate 300Phencyc lidine 25Cannabinoid 50Barbiturates 300Benzodiazepine 300Methadone 300[facility]anoFluoroscopic procedure less than one hour gicghizh3503-86-17 17:18:00* Test Item Value Reference Range Interpretation Comments Lactic Acid Level (test code = Lactic Acid Level) 8.2 0.5- 2.0 Results repeated and called to BERNICE CASE at 1856 on 10/26/19 by TRACEY Castillo Read back and verified.[facility] AustinPhosphorus byzzgzjwhmr9340-37-85 17:18:00* Test Item Value Reference Range Interpretation Comments Phosphorus Level (test code = EQZ2515) 1.9 2.3-4.7 [facility] plasma magnesium measurement (mass/volume)2019-10-26 17:18:00* Test Item Value Reference Range Interpretation Comments Magnesium Level (test code = 07999-3) 1.9 1.3-2.1 [facility] Centererum or plasma ethanol measurement (mass/volume)2019-10-26 17:18:00* Test Item Value Reference Range Interpretation Comments Ethyl Alcohol Level (test code = 5643-2) < 10.0 0.0-10.0 [facility] AustinFluoroscopic procedure less than one hour gmmsshki1713-11-58 17:18:00* Test Item Value Reference Range Interpretation Comments Lactic Acid Level (test code = Lactic Acid Level) 8.2 0.5- 2.0 Results repeated and called to BERNICE DOMINGUEZ at 1856 on 10/26/19 by TRACEY Castillo Read back and verified.[facility] AustinPhosphorus xdkfororlvp1304-26-96 17:18:00* Test Item Value Reference Range Interpretation Comments Phosphorus Level (test code = WTH1453) 1.9 2.3-4.7 [facility] Centererum or plasma magnesium measurement (mass/volume)2019-10-26 17:18:00* Test Item Value Reference Range Interpretation Comments Magnesium Level (test code = 47554-1) 1.9 1.3-2.1 [facility] Centererum or plasma ethanol measurement (mass/volume)2019-10-26 17:18:00* Test Item Value Reference Range Interpretation Comments Ethyl Alcohol Level (test code = 5643-2) < 10.0 0.0-10.0 [facility] AustinBlood Yvgebhk9979-54-10 18:35:00* Test Item Value Reference Range Interpretation Comments Blood Culture (test code = 59648478) NO GROWTH AFTER 5 DAYS, FINAL REPORT [facility] AustinBedside Ocjvsqb7956-37-44 12:02:00* Test Item Value Reference Range Interpretation Comments Bedside Glucose (test code = 88357-1) 152 70-120 H Meter ID: [id number] [facility] AustinThyroid Stimulating Hormone (TSH)2019-06-24 05:52:00* Test Item Value Reference Range Interpretation Comments Thyroid Stimulating Hormone (TSH) (test code = 85526-9) 0.334 0.350-4.940 L [facility] AustinThyroid Stimulating Hormone (TSH) 2019-06-24 05:52:00* Test Item Value Reference Range Interpretation Comments Thyroid Stimulating Hormone (TSH) (test code = 73649-0) 0.334 0.350-4.940 L [facility] AustinHemoglobin A1c Mpgsdqp6878-43-42 05:43:00 * Test Item Value Reference Range Interpretation Comments Hemoglobin A1c Percent (test code = Hemoglobin A1c Percent) 10.1 4.0-7.0 H [facility] AustinHemoglobin A1c Mjrncwc1206-02-59 05:43:00 * Test Item Value Reference Range Interpretation Comments Hemoglobin A1c Percent (test code = Hemoglobin A1c Percent) 10.1 4.0-7.0 H [facility] AustinWhite Blood Ktuai8672-51-84 05:21:00* Test Item Value Reference Range Interpretation Comments White Blood Count (test code = 6690-2) 7.14 4.8-10.8 [facility] AustinRed Blood Ivjne9455-76-60 05:21:00* Test Item Value Reference Range Interpretation Comments Red Blood Count (test code = 789-8) 4.21 4.3-5.7 L [facility] AustinHemoglobin2019-08-14 05:21:00* Test Item Value Reference Range Interpretation Comments Hemoglobin (test code = 40708-5) 12.9 14.0-18.0 L [facility] AustinHematocrit2019-08-14 05:21:00* Test Item Value Reference Range Interpretation Comments Hematocrit (test code = 4544-3) 34.0 38.2-49.6 L [facility] AustinMean Corpuscular Hhtakm1509-94-72 05:21:00* Test Item Value Reference Range Interpretation Comments Mean Corpuscular Volume (test code = 787-2) 80.8 81-99 L [facility] AustinMean Corpuscular Forkzwcpaf5624-80-47 05:21:00* Test Item Value Reference Range Interpretation Comments Mean Corpuscular Hemoglobin (test code = 785-6) 30.6 28-32 [facility] AustinMean Corpuscular Hemoglobin Concent 2019-06-24 05:21:00* Test Item Value Reference Range Interpretation Comments Mean Corpuscular Hemoglobin Concent (test code = 786-4) 37.9 31-35 H [facility] AustinRed Cell Distribution Sywyb5418-85-53 05:21:00* Test Item Value Reference Range Interpretation Comments Red Cell Distribution Width (test code = 35044-4) 11.8 11.7 -14.4 [facility] AustinPlatelet Qskct9353-65-37 05:21:00* Test Item Value Reference Range Interpretation Comments Platelet Count (test code = 777-3) 179 140-360 [facility] AustinNeutrophils (%) (Auto)2019-06-24 05:21:00 * Test Item Value Reference Range Interpretation Comments Neutrophils (%) (Auto) (test code = 88473-6) 45.2 38.7-80.0 [facility] AustinLymphocytes (%) (Auto)2019-06-24 05:21:00 * Test Item Value Reference Range Interpretation Comments Lymphocytes (%) (Auto) (test code = 736-9) 46.8 18.0-39.1 H [facility] AustinMonocytes (%) (Auto)2019-06-24 05:21:00* Test Item Value Reference Range Interpretation Comments Monocytes (%) (Auto) (test code = 5905-5) 6.2 4.4-11.3 [facility] AustinEosinophils (%) (Auto)2019-06-24 05:21:00 * Test Item Value Reference Range Interpretation Comments Eosinophils (%) (Auto) (test code = 713-8) 1.1 0.0-6.0 [facility] AustinBasophils (%) (Auto)2019-06-24 05:21:00* Test Item Value Reference Range Interpretation Comments Basophils (%) (Auto) (test code = 706-2) 0.3 0.0-1.0 [facility] AustinIM GRANULOCYTES %2019-06-24 05:21:00* Test Item Value Reference Range Interpretation Comments IM GRANULOCYTES % (test code = IM GRANULOCYTES %) 0.4 0.0- 1.0 [facility] AustinNeutrophils # (Auto)2019-06-24 05:21:00* Test Item Value Reference Range Interpretation Comments Neutrophils # (Auto) (test code = 751-8) 3.2 2.1-6.9 [facility] AustinLymphocytes # (Auto)2019-06-24 05:21:00* Test Item Value Reference Range Interpretation Comments Lymphocytes # (Auto) (test code = 75113-8) 3.3 1.0-3.2 H [facility] AustinMonocytes # (Auto)2019-06-24 05:21:00* Test Item Value Reference Range Interpretation Comments Monocytes # (Auto) (test code = 742-7) 0.4 0.2-0.8 [facility] AustinEosinophils # (Auto)2019-06-24 05:21:00* Test Item Value Reference Range Interpretation Comments Eosinophils # (Auto) (test code = 711-2) 0.1 0.0-0.4 [facility] AustinBasophils # (Auto)2019-06-24 05:21:00* Test Item Value Reference Range Interpretation Comments Basophils # (Auto) (test code = 704-7) 0.0 0.0-0.1 [facility] AustinAbsolute Immature Granulocyte (auto 2019-06-24 05:21:00* Test Item Value Reference Range Interpretation Comments Absolute Immature Granulocyte (auto (navya t code = Absolute Immature Granulocyte (auto) 0.03 0-0.1 [facility] AustinBlood Cjlecmu2578-42-85 18:35:00* Test Item Value Reference Range Interpretation Comments Blood Culture (test code = 77942674) NO GROWTH AFTER 24 HOURS [facility] Centerodium Fsgnv7501-42-56 17:05:00* Test Item Value Reference Range Interpretation Comments Sodium Level (test code = 2951-2) 126 136-145 L [facility] AustinPotassium Wsymm4911-50-22 17:05:00* Test Item Value Reference Range Interpretation Comments Potassium Level (test code = 2823-3) 3.5 3.5-5.1 [facility] AustinChloride Nqhsh4968-15-40 17:05:00* Test Item Value Reference Range Interpretation Comments Chloride Level (test code = 2075-0) 95 98-107 L [facility] AustinCarbon Dioxide Ddwze4100-45-06 17:05:00* Test Item Value Reference Range Interpretation Comments Carbon Dioxide Level (test code = 2028-9) 19 22-29 L [facility] AustinAnion Swi1883-22-54 17:05:00* Test Item Value Reference Range Interpretation Comments Anion Gap (test code = 62651-6) 15.5 8-16 [facility] AustinBlood Urea Qpoligrj7790-53-31 17:05:00* Test Item Value Reference Range Interpretation Comments Blood Urea Nitrogen (test code = 3094-0) 7 7-26 [facility] AustinCreatinine2019-08-13 17:05:00* Test Item Value Reference Range Interpretation Comments Creatinine (test code = 2160-0) 0.78 0.72-1.25 [facility] AustinBUN/Creatinine Kglia1730-91-08 17:05:00* Test Item Value Reference Range Interpretation Comments BUN/Creatinine Ratio (test code = 3097-3) 9 6-25 [facility] AustinEstimat Glomerular Filtration Rate 2019-06-23 17:05:00* Test Item Value Reference Range Interpretation Comments Estimat Glomerular Filtration Rate (test code = 876918533) > 60 >60 Ranges were taken from the National Kidney Disease Education Program and the [facility] literature.Reference ranges:60 or greater: Bnwkdz29-21 ( for 3 consecutive months): Chronic kidney disease 15 or less: Kidney failureAscension Seton Medical Center AustinGlucose Mniuq5485-01-70 17:05:00* Test Item Value Reference Range Interpretation Comments Glucose Level (test code = LUI4713) 163 74-118 H [facility] AustinCalcium Vtvjx9671-99-64 17:05:00* Test Item Value Reference Range Interpretation Comments Calcium Level (test code = 36191-6) 8.3 8.4-10.2 L [facility] AustinMagnesium Vnjpp8410-84-97 17:05:00* Test Item Value Reference Range Interpretation Comments Magnesium Level (test code = 32216-2) 2.1 1.3-2.1 [facility] AustinTotal Cxrgzqura2628-56-04 06:36:00* Test Item Value Reference Range Interpretation Comments Total Bilirubin (test code = 1975-2) 1.6 0.2-1.2 H [facility] AustinAspartate Amino Transf (AST/SGOT) 2019-06-23 06:36:00* Test Item Value Reference Range Interpretation Comments Aspartate Amino Transf (AST/SGOT) (test code = Aspartate Amino Transf (AST/SGOT)) 9 5-34 [facility] AustinAlanine Aminotransferase (ALT/SGPT) 2019-06-23 06:36:00* Test Item Value Reference Range Interpretation Comments Alanine Aminotransferase (ALT/SGPT) (test code = 1742-6) 10 0-55 [facility] AustinTotal Dfmwudp2005-18-76 06:36:00* Test Item Value Reference Range Interpretation Comments Total Protein (test code = 2885-2) 6.0 6.5-8.1 L [facility] AustinAlbumin2019-08-13 06:36:00* Test Item Value Reference Range Interpretation Comments Albumin (test code = 1751-7) 3.7 3.5-5.0 [facility] AustinGlobulin2019-08-13 06:36:00* Test Item Value Reference Range Interpretation Comments Globulin (test code = 73123-3) 2.3 2.3-3.5 [facility] AustinAlbumin/Globulin Dcoco0334-89-93 06:36:00 * Test Item Value Reference Range Interpretation Comments Albumin/Globulin Ratio (test code = 1759-0) 1.6 0.8-2.0 [facility] AustinAlkaline Jpyfkzhzona3210-92-86 06:36:00* Test Item Value Reference Range Interpretation Comments Alkaline Phosphatase (test code = 6768-6) 79 40-150 [facility] AustinPhosphorus Iysye0383-14-66 06:05:00* Test Item Value Reference Range Interpretation Comments Phosphorus Level (test code = DOY1517) < 0.7 2.3-4.7 L [facility] AustinCreatine Kinase HX5235-41-97 05:43:00* Test Item Value Reference Range Interpretation Comments Creatine Kinase MB (test code = 66948-6) 1.20 0-5.0 [facility] AustinTroponin [id number] 05:43:00* Test Item Value Reference Range Interpretation Comments Troponin I (test code = ZCC6259) < 0.001 0-0.300 [facility] AustinCreatine Utbuin5091-64-43 05:34:00* Test Item Value Reference Range Interpretation Comments Creatine Kinase (test code = 2157-6) 32 30-200 [facility] AustinArterial Blood [id number] 20:25:00* Test Item Value Reference Range Interpretation Comments Arterial Blood pH (test code = 2744-1) 7.16 7.31-7.41 LL Results called to MABEL WEBB at 2014 on 06/22/19 by Huan Champion. RB OK.[facility] AustinArterial Blood Partial Pressure YK07576-05-89 20:25:00* Test Item Value Reference Range Interpretation Comments Arterial Blood Partial Pressure CO2 (test code = 2019-06) 15 41-51 L [facility] AustinArterial Blood Partial Pressure O2 2019-06-22 20:25:00* Test Item Value Reference Range Interpretation Comments Arterial Blood Partial Pressure O2 (test code = 2019-06) 125 80-105 H [facility] AustinArterial Blood YZY69775-10-10 20:25:00* Test Item Value Reference Range Interpretation Comments Arterial Blood HCO3 (test code = 1960-4) 5 23-28 L [facility] AustinArterial Blood Base Qcllmm2713-22-12 20:25:00* Test Item Value Reference Range Interpretation Comments Arterial Blood Base Excess (test code = 1925-7) -23.0 -2-3 L [facility] AustinArterial Blood Oxygen Saturation 2019-06-22 20:25:00* Test Item Value Reference Range Interpretation Comments Arterial Blood Oxygen Saturation (test code = 2708-6) 98.0 95-98 [facility] AustinFiO22019-08-12 20:25:00* Test Item Value Reference Range Interpretation Comments FiO2 (test code = FiO2) 21 PT IS ON ROOM AIRAscension Seton Medical Center AustinArterial Blood pH 2019-06-22 20:25:00* Test Item Value Reference Range Interpretation Comments Arterial Blood pH (test code = 2744-1) 7.16 7.31-7.41 LL Results called to MABEL WEBB at 2014 on 06/22/19 by Huan Champion. RB OK.[facility] AustinArterial Blood Partial Pressure GS59033-73-61 20:25:00* Test Item Value Reference Range Interpretation Comments Arterial Blood Partial Pressure CO2 (test code = 2019-06) 15 41-51 L [facility] O2 2019-06-22 20:25:00* Test Item Value Reference Range Interpretation Comments Arterial Blood Partial Pressure O2 (test code = 2019-06) 125 80-105 H [facility] AustinAr[facility] Blood [id number] 20:25:00* Test Item Value Reference Range Interpretation Comments Arterial Blood HCO3 (test code = 1960-4) 5 23-28 L [facility] AustinAr[facility] Blood Base Arigdg6914-32-33 20:25:00* Test Item Value Reference Range Interpretation Comments Arterial Blood Base Excess (test code = 1925-7) -23.0 -2-3 L [facility] AustinAr[facility] Blood Oxygen Saturation 2019-06-22 20:25:00* Test Item Value Reference Range Interpretation Comments Arterial Blood Oxygen Saturation (test code = 2708-6) 98.0 95-98 [facility] AustinFiO22019-08-12 20:25:00* Test Item Value Reference Range Interpretation Comments FiO2 (test code = FiO2) 21 PT IS ON ROOM AIRAsc[facility] AustinUrine [id number] 19:50:00* Test Item Value Reference Range Interpretation Comments Urine WBC (test code = 5821-4) NONE 0-5 [facility] Austin[facility] QIH9317-82-00 19:50:00* Test Item Value Reference Range Interpretation Comments Urine RBC (test code = 71520-8) NONE 0-5 [facility] AustinU[facility] Avihteht0946-08-07 19:50:00* Test Item Value Reference Range Interpretation Comments Urine Bacteria (test code = 12985-6) NONE NONE [facility] Austin[facility] Epithelial Gmkjd8708-05-66 19:50:00 * Test Item Value Reference Range Interpretation Comments Urine Epithelial Cells (test code = 94327-9) NONE NONE [facility] AustinU[facility] Opiates Ripxaq6413-25-02 19:41:00* Test Item Value Reference Range Interpretation Comments Urine Opiates Screen (test code = 41914-8) NEGATIVE NEGATIVE ALL TESTS PERFORMED MANUALLY ON BIOR[employer] TOX/SEE TEST --- 06/22/191939 ---OPIATE S previously reported as: ALL TESTS PERFORMED MANUALLY ON BIOR[employer] TOX/SEE TEST [facility] AustinU[facility] Barbiturates Uzfiqd9913-14-32 19:41:00* Test Item Value Reference Range Interpretation Comments Urine Barbiturates Screen (test code = 775781593) NEGATIVE NEGA TIVE [facility] AustinU[facility] Phencyclidine Zrcfoa3902-02-11 19:41:00* Test Item Value Reference Range Interpretation Comments Urine Phencyclidine Screen (test code = 18926-9) NEGATIVE NEGAT JESSIKA [facility] Austin[facility] Amphetamines Wnbuwq2784-77-44 19:41:00* Test Item Value Reference Range Interpretation Comments Urine Amphetamines Screen (test code = 80100-2) NEGATIVE NEGATI VE [facility] AustinU[facility] Methamphetamines Vjyyyk9004-46-77 19:41:00* Test Item Value Reference Range Interpretation Comments Urine Methamphetamines Screen (test code = Urine Metha mphetamines Screen) NEGATIVE NEGATIVE [facility] AustinU[facility] Benzodiazepines Dldrso3535-85-59 19:41:00* Test Item Value Reference Range Interpretation Comments Urine Benzodiazepines Screen (test code = 25947-3) NEGATIVE NEG ATIVE [facility] AustinU[facility] Cocaine Qbcjva9868-63-53 19:41:00* Test Item Value Reference Range Interpretation Comments Urine Cocaine Screen (test code = 3398-5) NEGATIVE NEGATIVE [facility] AustinU[facility] Cannabinoids Thybtb8283-06-25 19:41:00* Test Item Value Reference Range Interpretation Comments Urine Cannabinoids Screen (test code = 63166-0) POSITIVE NEGATI VE H THESE RESULTS ARE [...] 300Phencyclidine 25C annabinoid 50Barbiturates 300Benzodiazepine 300Methadone 300[facility] Meth[facility]one Rteiqn7591-35-86 19:41:00* Test Item Value Reference Range Interpretation Comments Urine Methadone Screen (test code = 25761-5) NEGATIVE NEGATIVE THESE RESULTS ARE FOR MEDICAL TREATMENT ONLYTHIS REPORT CONTAINS UNCONFIR MED SCREENING RESULTS*POSITIVE RESULTS WILL BE CONFIRMED BY REFERENCE LAB UPON R EQUEST CUT-OFFDRUG CLASS CONCENTRATION ng/mLAmphetamines 1000Methamphetamines 1000Cocaine Metabolite 300Opiate 300Phencyc lidine 25Cannabinoid 50Barbiturates 300Benzodiazepine 300Methadone 300[facility]anoU[facility] Zaoni8999-72-26 19:39:00* Test Item Value Reference Range Interpretation Comments Urine Color (test code = 5778-6) YELLOW YELLOW [facility] AustinU[facility] Pclibwh1936-76-64 19:39:00* Test Item Value Reference Range Interpretation Comments Urine Clarity (test code = 91377-1) SL CLOUDY CLEAR H [facility] AustinUrine Specific Huzrjbf7728-67-23 19:39:00 * Test Item Value Reference Range Interpretation Comments Urine Specific [place] (test code = 5811-5) >=1.030 1.010-1.02 5 [facility] AustinU[facility] iO0312-27-59 19:39:00* Test Item Value Reference Range Interpretation Comments Urine pH (test code = 03543-6) 6 5-7 [facility] Austin[facility] Leukocyte Bcmcqiue3706-28-08 19:39:00* Test Item Value Reference Range Interpretation Comments Urine Leukocyte Esterase (test code = 97815-1) NEGATIVE NEGATIV E [facility] AustinU[facility] Ylqqypn5239-56-59 19:39:00* Test Item Value Reference Range Interpretation Comments Urine Nitrite (test code = 62158-5) NEGATIVE NEGATIVE [facility] AustinU[facility] Dckrgma2519-33-99 19:39:00* Test Item Value Reference Range Interpretation Comments Urine Protein (test code = 13437-8) 1+ NEGATIVE H [facility] AustinUrine Glucose (UA)2019-06-22 19:39:00* Test Item Value Reference Range Interpretation Comments Urine Glucose (UA) (test code = 89316-7) 2+ NEGATIVE H [facility] AustinU[facility] Dnawscp5905-47-31 19:39:00* Test Item Value Reference Range Interpretation Comments Urine Ketones (test code = 11554-3) 2+ NEGATIVE H [facility] AustinU[facility] Ayyjkkydjfqy3284-30-18 19:39:00* Test Item Value Reference Range Interpretation Comments Urine Urobilinogen (test code = 43628-6) 0.2 0.2-1 [facility] Koeamzqhg3881-42-76 19:39:00* Test Item Value Reference Range Interpretation Comments Urine Bilirubin (test code = 1977-8) NEGATIVE NEGATIVE [facility]ano[facility] Rfawe0058-72-75 19:39:00* Test Item Value Reference Range Interpretation Comments Urine Blood (test code = 48703-4) NEGATIVE NEGATIVE [facility] AustinCHEST [facility]INGLE [facility]ABLE)2019-06-22 19:18:00 [facility] [address] [address] Patient Name: KEVIN LOMELI MR #: [id number] : 1995 Age/Sex: 24/M Req #: [id number] Adm Physician: Ordered by: OLIVA JACOB MD Report #: [id number] Location: ER Room/Bed: Procedure: [id number] DX/C HEST SINGLE (PORTABLE) Exam Date: 06/22/19 Exam Time : 1800 REPORT STATUS: Signed EXA M: CHEST SINGLE (PORTABLE) DATE: 06/22/2019 4:25 PM INDICATION: N/V ? DKA [id number] 1800 COMPARISON: Chest x-ray, 05/19/2019 FINDINGS: Lines and tubes: None Heart size normal. No focal pul monary opacity, pleural effusion or pneumothorax. Upper abdomen unremarkabl e. No acute bony abnormality. IMPRESSION: No evidence for acute disease. Signed by: Dr. Keyon Darling M.D. on 06/22/2019 7:18 PM Dictated By: KEYON DARLING MD 17 Transcribed By: GABY on 06/22/191917 COPY TO: OLIVA JACOB MD Amylase Eeesq2711-21-34 18:58:00* Test Item Value Reference Range Interpretation Comments Amylase Level (test code = 1798-8) 15 25-125 L [facility] AustinLipase2019-08-12 18:58:00* Test Item Value Reference Range Interpretation Comments Lipase (test code = 3040-3) < 4 8-78 L [facility] AustinAmylase Jyndx5339-89-73 18:58:00* Test Item Value Reference Range Interpretation Comments Amylase Level (test code = 1798-8) 15 25-125 L [facility] AustinLipase2019-08-12 18:58:00* Test Item Value Reference Range Interpretation Comments Lipase (test code = 3040-3) < 4 8-78 L [facility] AustinLactic Acid Ajkat8294-55-76 18:45:00* Test Item Value Reference Range Interpretation Comments Lactic Acid Level (test code = Lactic Acid Level) 17.9 4.5- 19.8 [facility] AustinProthrombin Rzbf6332-62-87 18:43:00* Test Item Value Reference Range Interpretation Comments Prothrombin Time (test code = 5902-2) 14.9 11.9-14.5 H [facility] AustinProthromb Time International Ratio 2019-06-22 18:43:00* Test Item Value Reference Range Interpretation Comments Prothromb Time International Ratio (test code = 6301-6) 1.12 Oral Anticoagulant Therapy INR Values:1. Low Intensity Therapy 1.5 - 2.02 . Moderate Intensity Therapy 2.0 - 3.03. High Intensity Therapy(1) 2.5 - 3. 54. High Intensity Therapy(2) 3.0 - 4.05. Panic Value INR > 5.0 [facility] AustinActivated Partial Thromboplast Time 2019-06-22 18:43:00* Test Item Value Reference Range Interpretation Comments Activated Partial Thromboplast Time (test code = 44730-2) 29.4 23.8-35.5 [facility] AustinProthrombin Bgwz8276-92-17 18:43:00* Test Item Value Reference Range Interpretation Comments Prothrombin Time (test code = 5902-2) 14.9 11.9-14.5 H [facility] AustinProthromb Time International Ratio 2019-06-22 18:43:00* Test Item Value Reference Range Interpretation Comments Prothromb Time International Ratio (test code = 6301-6) 1.12 Oral Anticoagulant Therapy INR Values:1. Low Intensity Therapy 1.5 - 2.02 . Moderate Intensity Therapy 2.0 - 3.03. High Intensity Therapy(1) 2.5 - 3. 54. High Intensity Therapy(2) 3.0 - 4.05. Panic Value INR > 5.0 [facility] AustinActivated Partial Thromboplast Time 2019-06-22 18:43:00* Test Item Value Reference Range Interpretation Comments Activated Partial Thromboplast Time (test code = 51848-7) 29.4 23.8-35.5 [facility] AustinBedside Dwunvrz5342-82-62 12:05:00* Test Item Value Reference Range Interpretation Comments Bedside Glucose (test code = 44297-1) 288 70-120 H Meter ID: [id number] Centerodium Level 2019-05-21 05:35:00* Test Item Value Reference Range Interpretation Comments Sodium Level (test code = 2951-2) 130 136-145 L [facility] AustinPotassium Bpspy9785-52-55 05:35:00* Test Item Value Reference Range Interpretation Comments Potassium Level (test code = 2823-3) 3.1 3.5-5.1 L [facility] AustinChloride Uppqv9816-71-56 05:35:00* Test Item Value Reference Range Interpretation Comments Chloride Level (test code = 2075-0) 92 98-107 L [facility] AustinCarbon Dioxide Otvcv0074-36-90 05:35:00* Test Item Value Reference Range Interpretation Comments Carbon Dioxide Level (test code = 2028-9) 27 22-29 [facility] AustinAnion Lkp9228-87-26 05:35:00* Test Item Value Reference Range Interpretation Comments Anion Gap (test code = 28383-6) 14.1 8-16 [facility] AustinBlood Urea Qjslskjc3973-89-33 05:35:00* Test Item Value Reference Range Interpretation Comments Blood Urea Nitrogen (test code = 3094-0) 8 - [facility] AustinCreatinine2019-07-11 05:35:00* Test Item Value Reference Range Interpretation Comments Creatinine (test code = 2160-0) 0.70 0.72-1.25 L [facility] AustinBUN/Creatinine Beddl8589-96-81 05:35:00* Test Item Value Reference Range Interpretation Comments BUN/Creatinine Ratio (test code = 3097-3) 11 05-05 [facility] AustinEstimat Glomerular Filtration Rate 2019-05-21 05:35:00* Test Item Value Reference Range Interpretation Comments Estimat Glomerular Filtration Rate (test code = 326238572) > 60 >60 Ranges were taken from the National Kidney Disease Education Program and the [facility] literature.Reference ranges:60 or greater: Lurkdz10-10 ( for 3 consecutive months): Chronic kidney disease 15 or less: Kidney failureAsc[facility]on [facility] Center AustinGlucose Vgckk2667-95-36 05:35:00* Test Item Value Reference Range Interpretation Comments Glucose Level (test code = MXZ3903) 165 74-118 H [facility] AustinCalcium Vxbqm7110-42-62 05:35:00* Test Item Value Reference Range Interpretation Comments Calcium Level (test code = 91493-5) 7.9 8.4-10.2 L [facility] AustinMagnesium Mqrle8525-44-12 05:35:00* Test Item Value Reference Range Interpretation Comments Magnesium Level (test code = 85213-4) 2.3 1.3-2.1 H [facility] AustinThyroid Stimulating Hormone (TSH) 2019-05-20 06:26:00* Test Item Value Reference Range Interpretation Comments Thyroid Stimulating Hormone (TSH) (test code = 88700-4) 0.659 0.350-4.940 [facility] AustinWhite Blood Kxzcj0269-21-35 05:30:00* Test Item Value Reference Range Interpretation Comments White Blood Count (test code = 6690-2) 16.62 4.8-10.8 H [facility] AustinRed Blood Krulr3765-66-01 05:30:00* Test Item Value Reference Range Interpretation Comments Red Blood Count (test code = 789-8) 4.89 4.3-5.7 [facility] AustinHemoglobin2019-07-10 05:30:00* Test Item Value Reference Range Interpretation Comments Hemoglobin (test code = 46395-0) 15.3 14.0-18.0 [facility] AustinHematocrit2019-07-10 05:30:00* Test Item Value Reference Range Interpretation Comments Hematocrit (test code = 4544-3) 40.6 38.2-49.6 [facility] AustinMean Corpuscular Swfhah9624-11-52 05:30:00* Test Item Value Reference Range Interpretation Comments Mean Corpuscular Volume (test code = 787-2) 83.0 81-99 VERIFIED PREVIOUS RESULTSAscension [facility]on Medical Center AustinMean Corpuscular Kkavrayebt6249-22-94 05:30:00* Test Item Value Reference Range Interpretation Comments Mean Corpuscular Hemoglobin (test code = 785-6) 31.3 28-32 [facility] AustinMean Corpuscular Hemoglobin Concent 2019-05-20 05:30:00* Test Item Value Reference Range Interpretation Comments Mean Corpuscular Hemoglobin Concent (test code = 786-4) 37.7 31-35 H [facility] AustinRed Cell Distribution Ryvrv6412-16-00 05:30:00* Test Item Value Reference Range Interpretation Comments Red Cell Distribution Width (test code = 09802-9) 11.0 11.7 -14.4 L [facility] AustinPlatelet Ineer4417-74-33 05:30:00* Test Item Value Reference Range Interpretation Comments Platelet Count (test code = 777-3) 194 140-360 [facility] AustinNeutrophils (%) (Auto)2019-05-20 05:30:00 * Test Item Value Reference Range Interpretation Comments Neutrophils (%) (Auto) (test code = 50641-5) 84.7 38.7-80.0 H [facility] AustinLymphocytes (%) (Auto)2019-05-20 05:30:00 * Test Item Value Reference Range Interpretation Comments Lymphocytes (%) (Auto) (test code = 736-9) 7.1 18.0-39.1 L [facility] AustinMonocytes (%) (Auto)2019-05-20 05:30:00* Test Item Value Reference Range Interpretation Comments Monocytes (%) (Auto) (test code = 5905-5) 7.2 4.4-11.3 [facility] AustinEosinophils (%) (Auto)2019-05-20 05:30:00 * Test Item Value Reference Range Interpretation Comments Eosinophils (%) (Auto) (test code = 713-8) 0.1 0.0-6.0 [facility] AustinBasophils (%) (Auto)2019-05-20 05:30:00* Test Item Value Reference Range Interpretation Comments Basophils (%) (Auto) (test code = 706-2) 0.2 0.0-1.0 [facility] AustinIM GRANULOCYTES %2019-05-20 05:30:00* Test Item Value Reference Range Interpretation Comments IM GRANULOCYTES % (test code = IM GRANULOCYTES %) 0.7 0.0- 1.0 [facility] AustinNeutrophils # (Auto)2019-05-20 05:30:00* Test Item Value Reference Range Interpretation Comments Neutrophils # (Auto) (test code = 751-8) 14.1 2.1-6.9 H [facility] AustinLymphocytes # (Auto)2019-05-20 05:30:00* Test Item Value Reference Range Interpretation Comments Lymphocytes # (Auto) (test code = 13156-6) 1.2 1.0-3.2 [facility] AustinMonocytes # (Auto)2019-05-20 05:30:00* Test Item Value Reference Range Interpretation Comments Monocytes # (Auto) (test code = 742-7) 1.2 0.2-0.8 H [facility] AustinEosinophils # (Auto)2019-05-20 05:30:00* Test Item Value Reference Range Interpretation Comments Eosinophils # (Auto) (test code = 711-2) 0.0 0.0-0.4 [facility] AustinBasophils # (Auto)2019-05-20 05:30:00* Test Item Value Reference Range Interpretation Comments Basophils # (Auto) (test code = 704-7) 0.0 0.0-0.1 [facility] AustinAbsolute Immature Granulocyte (auto 2019-05-20 05:30:00* Test Item Value Reference Range Interpretation Comments Absolute Immature Granulocyte (auto (navya t code = Absolute Immature Granulocyte (auto) 0.12 0-0.1 H [facility] AustinUrine BGM2846-83-21 11:49:00* Test Item Value Reference Range Interpretation Comments Urine WBC (test code = 5821-4) 6-10 0-5 H [facility] AustinUrine OIB8575-05-82 11:49:00* Test Item Value Reference Range Interpretation Comments Urine RBC (test code = 99056-7) 6-10 0-5 H [facility] AustinUrine Zuzbwhxo2626-38-44 11:49:00* Test Item Value Reference Range Interpretation Comments Urine Bacteria (test code = 61217-3) FEW NONE [facility] AustinUrine Epithelial Vcxly4422-96-01 11:49:00 * Test Item Value Reference Range Interpretation Comments Urine Epithelial Cells (test code = 32092-1) RARE NONE [facility] AustinUrine Transitional Epithelial Cells 2019-05-19 11:49:00* Test Item Value Reference Range Interpretation Comments Urine Transitional Epithelial Cells (test code = 8249-5) FEW NONE [facility] AustinUrine Fine Granular Lzdrl0438-49-11 11:49:00* Test Item Value Reference Range Interpretation Comments Urine Fine Granular Casts (test code = 40700-6) 1-5 >0 H [facility] AustinUrine Coarse Granular Ckxcu0639-26-55 11:49:00* Test Item Value Reference Range Interpretation Comments Urine Coarse Granular Casts (test code = 12215-3) 1-5 >0 H [facility] AustinUrine Transitional Epithelial Cells 2019-05-19 11:49:00* Test Item Value Reference Range Interpretation Comments Urine Transitional Epithelial Cells (test code = 8249-5) FEW NONE [facility] AustinUrine Fine Granular Joogc5770-60-15 11:49:00* Test Item Value Reference Range Interpretation Comments Urine Fine Granular Casts (test code = 00175-7) 1-5 >0 H [facility] AustinUrine Coarse Granular Tlico7380-17-70 11:49:00* Test Item Value Reference Range Interpretation Comments Urine Coarse Granular Casts (test code = 41046-5) 1-5 >0 H [facility] AustinUrine Transitional Epithelial Cells 2019-05-19 11:49:00* Test Item Value Reference Range Interpretation Comments Urine Transitional Epithelial Cells (test code = 8249-5) FEW NONE [facility] AustinUrine Fine Granular Hlmhg3144-51-05 11:49:00* Test Item Value Reference Range Interpretation Comments Urine Fine Granular Casts (test code = 37852-5) 1-5 >0 H [facility] AustinUrine Coarse Granular Hywvo4258-51-20 11:49:00* Test Item Value Reference Range Interpretation Comments Urine Coarse Granular Casts (test code = 26356-0) 1-5 >0 H [facility] AustinUrine Lfotp7049-63-94 11:36:00* Test Item Value Reference Range Interpretation Comments Urine Color (test code = 5778-6) YELLOW YELLOW [facility] AustinUrine Mypkcmv3361-86-20 11:36:00* Test Item Value Reference Range Interpretation Comments Urine Clarity (test code = 79924-3) CLEAR CLEAR [facility] AustinUrine Specific Cyhhqgq9179-68-32 11:36:00 * Test Item Value Reference Range Interpretation Comments Urine Specific [place] (test code = 5811-5) 1.025 1.010-1.02 5 [facility] AustinUrine oY0181-88-50 11:36:00* Test Item Value Reference Range Interpretation Comments Urine pH (test code = 84268-4) 5 5-7 [facility] AustinUrine Leukocyte Ukcjamiu6995-86-39 11:36:00* Test Item Value Reference Range Interpretation Comments Urine Leukocyte Esterase (test code = 89093-2) NEGATIVE NEGATIV E [facility] AustinUrine Hdnwapz3625-92-66 11:36:00* Test Item Value Reference Range Interpretation Comments Urine Nitrite (test code = 37749-5) NEGATIVE NEGATIVE [facility] AustinUrine Vtytmun0491-72-85 11:36:00* Test Item Value Reference Range Interpretation Comments Urine Protein (test code = 73930-5) 1+ NEGATIVE H [facility] AustinUrine Glucose (UA)2019-05-19 11:36:00* Test Item Value Reference Range Interpretation Comments Urine Glucose (UA) (test code = 88307-0) 3+ NEGATIVE [facility] AustinUrine Muugaxj1836-47-68 11:36:00* Test Item Value Reference Range Interpretation Comments Urine Ketones (test code = 48272-8) 2+ NEGATIVE H [facility] AustinUrine Ntaojumwmzwo6748-49-69 11:36:00* Test Item Value Reference Range Interpretation Comments Urine Urobilinogen (test code = 65624-4) 0.2 0.2-1 [facility] AustinUrine Tiyovebyk0038-18-15 11:36:00* Test Item Value Reference Range Interpretation Comments Urine Bilirubin (test code = 1977-8) NEGATIVE NEGATIVE [facility] AustinUrine Lcehr7366-31-70 11:36:00* Test Item Value Reference Range Interpretation Comments Urine Blood (test code = 86896-3) 1+ NEGATIVE [facility] AustinUrine Opiates Nooqqd8580-81-66 10:59:00* Test Item Value Reference Range Interpretation Comments Urine Opiates Screen (test code = 98869-2) NEGATIVE NEGATIVE ALL TESTS PERFORMED MANUALLY ON Simraceway TOX/SEE TESTAsc[facility] AustinUrine Barbiturates Clvnvq8952-35-51 10:59:00* Test Item Value Reference Range Interpretation Comments Urine Barbiturates Screen (test code = 683103245) NEGATIVE NEGA TIVE [facility] AustinUrine Phencyclidine Ilnrzq9851-25-28 10:59:00* Test Item Value Reference Range Interpretation Comments Urine Phencyclidine Screen (test code = 87068-9) NEGATIVE NEGAT JESSIKA [facility] AustinUrine Amphetamines Hqmzxy6645-65-56 10:59:00* Test Item Value Reference Range Interpretation Comments Urine Amphetamines Screen (test code = 96057-1) NEGATIVE NEGATI VE [facility] AustinUrine Methamphetamines Kmpauq4142-33-09 10:59:00* Test Item Value Reference Range Interpretation Comments Urine Methamphetamines Screen (test code = Urine Metha mphetamines Screen) NEGATIVE NEGATIVE [facility] AustinUrine Benzodiazepines Yufwed9136-05-94 10:59:00* Test Item Value Reference Range Interpretation Comments Urine Benzodiazepines Screen (test code = 74635-1) NEGATIVE NEG ATIVE [facility] AustinUrine Cocaine Jyvwhk5648-76-47 10:59:00* Test Item Value Reference Range Interpretation Comments Urine Cocaine Screen (test code = 3398-5) NEGATIVE NEGATIVE [facility] AustinUrine Cannabinoids Yhogle1990-13-37 10:59:00* Test Item Value Reference Range Interpretation Comments Urine Cannabinoids Screen (test code = 79066-7) POSITIVE NEGATI VE H THESE RESULTS ARE FOR MEDICAL TREATMENT ONLYTHIS REPORT CONTAINS UNCONFIR MED SCREENING RESULTS*POSITIVE RESULTS WILL BE CONFIRMED BY REFERENCE LAB UPON R EQUEST CUT-OFFDRUG CLASS CONCENTRATION ng/mLAmphetamines 1000Methamphetamines 1000Cocaine 300Opiate 300Phencyc lidine 25Cannabinoid 50Barbiturates 300Benzodiazepine 300Methadone 300 This test p rovides only a screen. Positive results should be repeated by a confirmatory navya t.[facility] AustinUrine Methadone Wtxftz9539-26-75 10:59:00* Test Item Value Reference Range Interpretation Comments Urine Methadone Screen (test code = 19511-2) NEGATIVE NEGATIVE THESE RESULTS ARE FOR MEDICAL TREATMENT ONLYTHIS REPORT CONTAINS UNCONFIR MED SCREENING RESULTS*POSITIVE RESULTS WILL BE CONFIRMED BY REFERENCE LAB UPON R EQUEST CUT-OFFDRUG CLASS CONCENTRATION ng/mLAmphetamines 1000Methamphetamines 1000Cocaine Metabolite 300Opiate 300Phencyc lidine 25Cannabinoid 50Barbiturates 300Benzodiazepine 300Methadone 300[facility] PlanoB-Type Natriuretic Eplgfqe2218-34-91 10:40:00* Test Item Value Reference Range Interpretation Comments B-Type Natriuretic Peptide (test code = 63941-3) 28.6 0-100 [facility] AustinCreatine Kinase VI6502-08-77 10:40:00* Test Item Value Reference Range Interpretation Comments Creatine Kinase MB (test code = 19527-2) 1.60 0-5.0 [facility] AustinTroponin A6484-65-07 10:40:00* Test Item Value Reference Range Interpretation Comments Troponin I (test code = ZTQ2722) 0.001 0-0.300 [facility] AustinB-Type Natriuretic Snopryi1511-37-85 10:40:00* Test Item Value Reference Range Interpretation Comments B-Type Natriuretic Peptide (test code = 83060-1) 28.6 0-100 [facility] AustinB-Type Natriuretic Xurpymt2190-58-12 10:40:00* Test Item Value Reference Range Interpretation Comments B-Type Natriuretic Peptide (test code = 46049-7) 28.6 0-100 [facility] AustinProthrombin Ecrp1366-66-82 10:32:00* Test Item Value Reference Range Interpretation Comments Prothrombin Time (test code = 5902-2) 14.9 11.9-14.5 H [facility] AustinProthromb Time International Ratio 2019-05-19 10:32:00* Test Item Value Reference Range Interpretation Comments Prothromb Time International Ratio (test code = 6301-6) 1.12 Oral Anticoagulant Therapy INR Values:1. Low Intensity Therapy 1.5 - 2.02 . Moderate Intensity Therapy 2.0 - 3.03. High Intensity Therapy(1) 2.5 - 3. 54. High Intensity Therapy(2) 3.0 - 4.05. Panic Value INR > 5.0 [facility] AustinActivated Partial Thromboplast Time 2019-05-19 10:32:00* Test Item Value Reference Range Interpretation Comments Activated Partial Thromboplast Time (test code = 05615-6) 31.5 23.8-35.5 [facility] AustinTotal Vnakcbpnf5226-05-14 10:31:00* Test Item Value Reference Range Interpretation Comments Total Bilirubin (test code = 1975-2) 0.8 0.2-1.2 [facility] AustinAspartate Amino Transf (AST/SGOT) 2019-05-19 10:31:00* Test Item Value Reference Range Interpretation Comments Aspartate Amino Transf (AST/SGOT) (test code = Aspartate Amino Transf (AST/SGOT)) 12 5-34 [facility] AustinAlanine Aminotransferase (ALT/SGPT) 2019-05-19 10:31:00* Test Item Value Reference Range Interpretation Comments Alanine Aminotransferase (ALT/SGPT) (test code = 1742-6) 17 0-55 [facility] AustinTotal Oorrfey7935-21-72 10:31:00* Test Item Value Reference Range Interpretation Comments Total Protein (test code = 2885-2) 8.5 6.5-8.1 H [facility] AustinAlbumin2019-07-09 10:31:00* Test Item Value Reference Range Interpretation Comments Albumin (test code = 1751-7) 4.6 3.5-5.0 [facility] AustinGlobulin2019-07-09 10:31:00* Test Item Value Reference Range Interpretation Comments Globulin (test code = 59398-5) 3.9 2.3-3.5 H [facility] AustinAlbumin/Globulin Plkgl6230-89-04 10:31:00 * Test Item Value Reference Range Interpretation Comments Albumin/Globulin Ratio (test code = 1759-0) 1.2 0.8-2.0 [facility] AustinAlkaline Ayhzyjvqowc0795-42-89 10:31:00* Test Item Value Reference Range Interpretation Comments Alkaline Phosphatase (test code = 6768-6) 149 40-150 [facility] AustinCreatine Kjvudc2413-85-35 10:31:00* Test Item Value Reference Range Interpretation Comments Creatine Kinase (test code = 2157-6) 59 30-200 [facility] AustinCHEST SINGLE (PORTABLE)2019-05-19 10:11:00 [facility] [address] [place] [address] Patient Name: KEVIN LOMELI MR #: [id number] : 1995 Age/Sex: 24/M Req #: [id number] Adm Physician: Ordered by: KEYON MIRANDA MD Report #: [id number] Location: ER Room/Bed: Procedure: [id number] DX /CHEST SINGLE (PORTABLE) Exam Date: 05/19/19 Exam Ti me: 09 REPORT STATUS: Signed E XAMINATION: CHEST SINGLE [...] 7.31-7.41 LL Results called/hand delivered to at [facility] on 05/19/19 by Eder Garcia. RB OK.[facility] HospitalAr[facility] Blood Partial Pressure CO2 2019-05-19 10:03:00* Test Item Value Reference Range Interpretation Comments Arterial Blood Partial Pressure CO2 (test code = 2019-06) 9 41-51 L [facility] AustinArterial Blood Partial Pressure O2 2019-05-19 10:03:00* Test Item Value Reference Range Interpretation Comments Arterial Blood Partial Pressure O2 (test code = 2019-8) 147 80-105 H [facility] AustinArterial Blood HZX48201-76-14 10:03:00* Test Item Value Reference Range Interpretation Comments Arterial Blood HCO3 (test code = 1960-4) 2 23-28 L [facility] AustinArterial Blood Base Pgilfy1552-28-91 10:03:00* Test Item Value Reference Range Interpretation Comments Arterial Blood Base Excess (test code = 1925-7) -30.0 -2-3 L [facility] AustinArterial Blood Oxygen Saturation 2019-05-19 10:03:00* Test Item Value Reference Range Interpretation Comments Arterial Blood Oxygen Saturation (test code = 2708-6) 98.0 95-98 [facility] AustinFiO22019-07-09 10:03:00* Test Item Value Reference Range Interpretation Comments FiO2 (test code = FiO2) 21 Pt was on Room air when ABG was drawnAsc[facility] Austin Bedside Gfwkdzd8975-59-76 08:09:00* Test Item Value Reference Range Interpretation Comments Bedside Glucose (test code = 45116-1) 142 70-120 H Meter ID: [id number] Hermann [facility] Medical Centerodium Level 2019-03-03 07:29:00* Test Item Value Reference Range Interpretation Comments Sodium Level (test code = 2951-2) 131 136-145 L [facility] AustinPotassium Etkqm3680-44-13 07:29:00* Test Item Value Reference Range Interpretation Comments Potassium Level (test code = 2823-3) 4.0 3.5-5.1 [facility] AustinChloride Ltbrn7322-98-65 07:29:00* Test Item Value Reference Range Interpretation Comments Chloride Level (test code = 2075-0) 101 98-107 [facility] AustinCarbon Dioxide Lrlis2807-54-02 07:29:00* Test Item Value Reference Range Interpretation Comments Carbon Dioxide Level (test code = 2028-9) 22 22-29 [facility] AustinAnion Fhi5142-45-10 07:29:00* Test Item Value Reference Range Interpretation Comments Anion Gap (test code = 75000-3) 12.0 8-16 [facility] AustinBlood Urea Slukonru7333-00-07 07:29:00* Test Item Value Reference Range Interpretation Comments Blood Urea Nitrogen (test code = 3094-0) 11 7-26 [facility] AustinCreatinine2019-04-23 07:29:00* Test Item Value Reference Range Interpretation Comments Creatinine (test code = 2160-0) 0.72 0.72-1.25 [facility] AustinBUN/Creatinine Tbueb1085-92-36 07:29:00* Test Item Value Reference Range Interpretation Comments BUN/Creatinine Ratio (test code = 3097-3) 15 6- [facility] AustinEstimat Glomerular Filtration Rate 2019-03-03 07:29:00* Test Item Value Reference Range Interpretation Comments Estimat Glomerular Filtration Rate (test code = 194640156) > 60 >60 Ranges were taken from the National Kidney Disease Education Program and the [facility] Kidney Foundation literature.Reference ranges:60 or greater: Cogyqi28-77 ( for 3 consecutive months): Chronic kidney disease 15 or less: Kidney failureAscension Seton Medical Center AustinGlucose Wvjqu8118-14-54 07:29:00* Test Item Value Reference Range Interpretation Comments Glucose Level (test code = OCF8183) 142 74-118 H [facility] AustinCalcium Yhprr6728-81-07 07:29:00* Test Item Value Reference Range Interpretation Comments Calcium Level (test code = 65927-0) 8.4 8.4-10.2 [facility] AustinMagnesium Uguqh1122-91-54 07:29:00* Test Item Value Reference Range Interpretation Comments Magnesium Level (test code = 80399-5) 2.1 1.3-2.1 [facility] AustinArterial Blood mY4917-24-96 01:35:00* Test Item Value Reference Range Interpretation Comments Arterial Blood pH (test code = 2744-1) 7.30 7.31-7.41 L [facility] AustinArterial Blood Partial Pressure CO2 2019-03-03 01:35:00* Test Item Value Reference Range Interpretation Comments Arterial Blood Partial Pressure CO2 (test code = 2018-) 33 41-51 L [facility] AustinArterial Blood Partial Pressure O2 2019-03-03 01:35:00* Test Item Value Reference Range Interpretation Comments Arterial Blood Partial Pressure O2 (test code = 2019-06) 108 80-105 H [facility] AustinArterial Blood ECY31529-83-75 01:35:00* Test Item Value Reference Range Interpretation Comments Arterial Blood HCO3 (test code = 1960-4) 16 23-28 L [facility] AustinArterial Blood Base Tghejj8336-86-65 01:35:00* Test Item Value Reference Range Interpretation Comments Arterial Blood Base Excess (test code = 1925-7) -10.0 -2-3 L [facility] AustinArterial Blood Oxygen Saturation 2019-03-03 01:35:00* Test Item Value Reference Range Interpretation Comments Arterial Blood Oxygen Saturation (test code = 2708-6) 98.0 95-98 [facility] AustinFiO22019-04-23 01:35:00* Test Item Value Reference Range Interpretation Comments FiO2 (test code = FiO2) 21 PT IS ON ROOM AIR98%/68/16[facility] AustinTotal Bilirubin 2019-03-02 23:28:00* Test Item Value Reference Range Interpretation Comments Total Bilirubin (test code = 1975-2) 1.1 0.2-1.2 [facility] AustinAspartate Amino Transf (AST/SGOT) 2019-03-02 23:28:00* Test Item Value Reference Range Interpretation Comments Aspartate Amino Transf (AST/SGOT) (test code = Aspartate Amino Transf (AST/SGOT)) 14 5-34 [facility] AustinAlanine Aminotransferase (ALT/SGPT) 2019-03-02 23:28:00* Test Item Value Reference Range Interpretation Comments Alanine Aminotransferase (ALT/SGPT) (test code = 1742-6) 19 0-55 [facility] AustinTotal Msxxttq1974-44-38 23:28:00* Test Item Value Reference Range Interpretation Comments Total Protein (test code = 2885-2) 8.2 6.5-8.1 H [facility] AustinAlbumin2019-04-22 23:28:00* Test Item Value Reference Range Interpretation Comments Albumin (test code = 1751-7) 4.0 3.5-5.0 [facility] AustinGlobulin2019-04-22 23:28:00* Test Item Value Reference Range Interpretation Comments Globulin (test code = 32974-0) 4.2 2.3-3.5 H [facility] AustinAlbumin/Globulin Mpxxj0148-47-18 23:28:00 * Test Item Value Reference Range Interpretation Comments Albumin/Globulin Ratio (test code = 1759-0) 1.0 0.8-2.0 [facility] AustinAlkaline Urxqcufjqbv8328-64-63 23:28:00* Test Item Value Reference Range Interpretation Comments Alkaline Phosphatase (test code = 6768-6) 103 40-150 [facility] AustinAmylase Mpgui3919-00-26 23:28:00* Test Item Value Reference Range Interpretation Comments Amylase Level (test code = 1798-8) 17 25-125 L [facility] AustinLipase2019-04-22 23:28:00* Test Item Value Reference Range Interpretation Comments Lipase (test code = 3040-3) 5 8-78 L [facility] AustinAmylase Yfebk2839-56-82 23:28:00* Test Item Value Reference Range Interpretation Comments Amylase Level (test code = 1798-8) 17 25-125 L [facility] AustinLipase2019-04-22 23:28:00* Test Item Value Reference Range Interpretation Comments Lipase (test code = 3040-3) 5 8-78 L [facility] AustinWhite Blood Wepsd5038-43-45 23:27:00* Test Item Value Reference Range Interpretation Comments White Blood Count (test code = 6690-2) 7.32 4.8-10.8 [facility] AustinRed Blood Umifi5291-88-74 23:27:00* Test Item Value Reference Range Interpretation Comments Red Blood Count (test code = 789-8) 4.98 4.3-5.7 [facility] AustinHemoglobin2019-04-22 23:27:00* Test Item Value Reference Range Interpretation Comments Hemoglobin (test code = 68071-7) 15.6 14.0-18.0 [facility] AustinHematocrit2019-04-22 23:27:00* Test Item Value Reference Range Interpretation Comments Hematocrit (test code = 4544-3) 45.5 38.2-49.6 [facility] AustinMean Corpuscular Vywooi2831-25-12 23:27:00* Test Item Value Reference Range Interpretation Comments Mean Corpuscular Volume (test code = 787-2) 91.4 81-99 [facility] AustinMean Corpuscular Ykkefzynhu2616-50-02 23:27:00* Test Item Value Reference Range Interpretation Comments Mean Corpuscular Hemoglobin (test code = 785-6) 31.3 28-32 [facility] AustinMean Corpuscular Hemoglobin Concent 2019-03-02 23:27:00* Test Item Value Reference Range Interpretation Comments Mean Corpuscular Hemoglobin Concent (test code = 786-4) 34.3 31-35 [facility] AustinRed Cell Distribution Lterd9612-65-27 23:27:00* Test Item Value Reference Range Interpretation Comments Red Cell Distribution Width (test code = 43707-2) 13.0 11.7 -14.4 [facility] AustinPlatelet Vguki9274-67-91 23:27:00* Test Item Value Reference Range Interpretation Comments Platelet Count (test code = 777-3) 331 140-360 [facility] AustinNeutrophils (%) (Auto)2019-03-02 23:27:00 * Test Item Value Reference Range Interpretation Comments Neutrophils (%) (Auto) (test code = 01392-1) 72.7 38.7-80.0 [facility] AustinLymphocytes (%) (Auto)2019-03-02 23:27:00 * Test Item Value Reference Range Interpretation Comments Lymphocytes (%) (Auto) (test code = 736-9) 23.1 18.0-39.1 [facility] AustinMonocytes (%) (Auto)2019-03-02 23:27:00* Test Item Value Reference Range Interpretation Comments Monocytes (%) (Auto) (test code = 5905-5) 3.8 4.4-11.3 L [facility] AustinEosinophils (%) (Auto)2019-03-02 23:27:00 * Test Item Value Reference Range Interpretation Comments Eosinophils (%) (Auto) (test code = 713-8) 0.0 0.0-6.0 [facility] AustinBasophils (%) (Auto)2019-03-02 23:27:00* Test Item Value Reference Range Interpretation Comments Basophils (%) (Auto) (test code = 706-2) 0.1 0.0-1.0 [facility] AustinIM GRANULOCYTES %2019-03-02 23:27:00* Test Item Value Reference Range Interpretation Comments IM GRANULOCYTES % (test code = IM GRANULOCYTES %) 0.3 0.0- 1.0 [facility] AustinNeutrophils # (Auto)2019-03-02 23:27:00* Test Item Value Reference Range Interpretation Comments Neutrophils # (Auto) (test code = 751-8) 5.3 2.1-6.9 [facility] AustinLymphocytes # (Auto)2019-03-02 23:27:00* Test Item Value Reference Range Interpretation Comments Lymphocytes # (Auto) (test code = 48609-2) 1.7 1.0-3.2 [facility] AustinMonocytes # (Auto)2019-03-02 23:27:00* Test Item Value Reference Range Interpretation Comments Monocytes # (Auto) (test code = 742-7) 0.3 0.2-0.8 [facility] AustinEosinophils # (Auto)2019-03-02 23:27:00* Test Item Value Reference Range Interpretation Comments Eosinophils # (Auto) (test code = 711-2) 0.0 0.0-0.4 [facility] AustinBasophils # (Auto)2019-03-02 23:27:00* Test Item Value Reference Range Interpretation Comments Basophils # (Auto) (test code = 704-7) 0.0 0.0-0.1 [facility] AustinAbsolute Immature Granulocyte (auto 2019-03-02 23:27:00* Test Item Value Reference Range Interpretation Comments Absolute Immature Granulocyte (auto (navya t code = Absolute Immature Granulocyte (auto) 0.02 0-0.1 [facility] AustinUrine IIC9882-59-31 23:10:00* Test Item Value Reference Range Interpretation Comments Urine WBC (test code = 5821-4) 6-10 0-5 H [facility] AustinUrine VXT7244-80-19 23:10:00* Test Item Value Reference Range Interpretation Comments Urine RBC (test code = 44917-5) >50 0-5 H [facility] AustinUrine Tcwtumod5434-81-38 23:10:00* Test Item Value Reference Range Interpretation Comments Urine Bacteria (test code = 79159-4) FEW NONE [facility] AustinUrine Epithelial Bvtho6536-94-47 23:10:00 * Test Item Value Reference Range Interpretation Comments Urine Epithelial Cells (test code = 88021-9) FEW NONE [facility] AustinUrine Qgzvm1231-58-21 22:42:00* Test Item Value Reference Range Interpretation Comments Urine Color (test code = 5778-6) YELLOW YELLOW [facility] AustinUrine Kcaqmdy5270-96-74 22:42:00* Test Item Value Reference Range Interpretation Comments Urine Clarity (test code = 25980-7) CLEAR CLEAR [facility] AustinUrine Specific Ffsexjm1126-38-33 22:42:00 * Test Item Value Reference Range Interpretation Comments Urine Specific [place] (test code = 5811-5) 1.030 1.010-1.02 5 H [facility] AustinUrine qP6687-85-88 22:42:00* Test Item Value Reference Range Interpretation Comments Urine pH (test code = 10749-9) 6 5-7 [facility] AustinUrine Leukocyte Dwvnebod9243-69-32 22:42:00* Test Item Value Reference Range Interpretation Comments Urine Leukocyte Esterase (test code = 5799-2) NEGATIVE NEGATIVE [facility] AustinUrine Itrjhnz9343-11-05 22:42:00* Test Item Value Reference Range Interpretation Comments Urine Nitrite (test code = 52558-2) NEGATIVE NEGATIVE [facility] AustinUrine Gsefuxd4967-07-24 22:42:00* Test Item Value Reference Range Interpretation Comments Urine Protein (test code = 5804-0) 1+ NEGATIVE H [facility] AustinUrine Glucose (UA)2019-03-02 22:42:00* Test Item Value Reference Range Interpretation Comments Urine Glucose (UA) (test code = 2349-9) 3+ NEGATIVE H [facility] AustinUrine Zcrvknm4190-11-09 22:42:00* Test Item Value Reference Range Interpretation Comments Urine Ketones (test code = 75193-6) 3+ NEGATIVE H [facility] AustinUrine Minikxxznhhz3707-47-92 22:42:00* Test Item Value Reference Range Interpretation Comments Urine Urobilinogen (test code = 24797-6) 0.2 0.2-1 [facility] AustinUrine Rboefopmj6683-37-30 22:42:00* Test Item Value Reference Range Interpretation Comments Urine Bilirubin (test code = 1978-6) NEGATIVE NEGATIVE [facility] AustinUrine Aplxg2141-48-60 22:42:00* Test Item Value Reference Range Interpretation Comments Urine Blood (test code = 16116-3) 4+ NEGATIVE H [facility] AustinUrine Opiates Ietbjv3907-13-94 22:37:00* Test Item Value Reference Range Interpretation Comments Urine Opiates Screen (test code = 85278-4) NEGATIVE NEGATIVE ALL TESTS PERFORMED MANUALLY ON Simraceway TOX/SEE TESTAscension [facility]on Medical Center AustinUrine Barbiturates Bggcks3953-02-93 22:37:00* Test Item Value Reference Range Interpretation Comments Urine Barbiturates Screen (test code = 442291951) NEGATIVE NEGA TIVE [facility] AustinUrine Phencyclidine Aydhne2938-25-56 22:37:00* Test Item Value Reference Range Interpretation Comments Urine Phencyclidine Screen (test code = 59004-8) NEGATIVE NEGAT JESSIKA [facility] AustinUrine Amphetamines Tfhpxz1652-35-43 22:37:00* Test Item Value Reference Range Interpretation Comments Urine Amphetamines Screen (test code = 52888-0) NEGATIVE NEGATI VE [facility] AustinUrine Methamphetamines Qwklgf4214-38-93 22:37:00* Test Item Value Reference Range Interpretation Comments Urine Methamphetamines Screen (test code = Urine Metha mphetamines Screen) NEGATIVE NEGATIVE [facility] AustinUrine Benzodiazepines Visgdn6909-96-29 22:37:00* Test Item Value Reference Range Interpretation Comments Urine Benzodiazepines Screen (test code = 93785-6) NEGATIVE NEG ATIVE [facility] AustinUrine Cocaine Llbyta4561-31-03 22:37:00* Test Item Value Reference Range Interpretation Comments Urine Cocaine Screen (test code = 3398-5) NEGATIVE NEGATIVE [facility] AustinUrine Cannabinoids Lvodnc8521-22-58 22:37:00* Test Item Value Reference Range Interpretation Comments Urine Cannabinoids Screen (test code = 10691-7) POSITIVE NEGATI VE H THESE RESULTS ARE FOR MEDICAL TREATMENT ONLYTHIS REPORT CONTAINS UNCONFIR MED SCREENING RESULTS*POSITIVE RESULTS WILL BE CONFIRMED BY REFERENCE LAB UPON R EQUEST CUT-OFFDRUG CLASS CONCENTRATION ng/mLAmphetamines 1000Methamphetamines 1000Cocaine 300Opiate 300Phencyc lidine 25Cannabinoid 50Barbiturates 300Benzodiazepine 300Methadone 300 This test p rovides only a screen. Positive results should be repeated by a confirmatory navya t.[facility] AustinUrine Methadone Frsnea3944-00-71 22:37:00* Test Item Value Reference Range Interpretation Comments Urine Methadone Screen (test code = 75556-3) NEGATIVE NEGATIVE THESE RESULTS ARE FOR MEDICAL TREATMENT ONLYTHIS REPORT CONTAINS UNCONFIR MED SCREENING RESULTS*POSITIVE RESULTS WILL BE CONFIRMED BY REFERENCE LAB UPON R EQUEST CUT-OFFDRUG CLASS CONCENTRATION ng/mLAmphetamines 1000Methamphetamines 1000Cocaine Metabolite 300Opiate 300Phencyc lidine 25Cannabinoid 50Barbiturates 300Benzodiazepine 300Methadone 300[facility] PlanoBedside Wnpjzyi4345-26-18 11:48:00* Test Item Value Reference Range Interpretation Comments Bedside Glucose (test code = 53876-8) 82 70-120 Meter ID: [id number] Hermann [facility] Medical Centerodium Level 2019-02-02 05:44:00* Test Item Value Reference Range Interpretation Comments Sodium Level (test code = 2951-2) 129 136-145 L [facility] AustinPotassium Hsrui0164-58-60 05:44:00* Test Item Value Reference Range Interpretation Comments Potassium Level (test code = 2823-3) 2.9 3.5-5.1 LL Results repeated and called to JAYLEN ORTIZ RN at 0543 on 02/02/19 by Erwin Anderson. Read back and verified.[facility] AustinChloride Level 2019-02-02 05:44:00* Test Item Value Reference Range Interpretation Comments Chloride Level (test code = 2075-0) 88 98-107 L [facility] AustinCarbon Dioxide Mghuk2079-03-70 05:44:00* Test Item Value Reference Range Interpretation Comments Carbon Dioxide Level (test code = 2028-9) 35 22-29 H [facility] AustinAnion Pij2496-61-91 05:44:00* Test Item Value Reference Range Interpretation Comments Anion Gap (test code = 19643-4) 8.9 8-16 [facility] AustinBlood Urea Xlqmliwj5673-11-16 05:44:00* Test Item Value Reference Range Interpretation Comments Blood Urea Nitrogen (test code = 3094-0) 5 7-26 L [facility] AustinCreatinine2019-03-25 05:44:00* Test Item Value Reference Range Interpretation Comments Creatinine (test code = 2160-0) 0.57 0.72-1.25 L [facility] AustinBUN/Creatinine Tntsr3134-64-52 05:44:00* Test Item Value Reference Range Interpretation Comments BUN/Creatinine Ratio (test code = 3097-3) 9 6-25 [facility] AustinEstimat Glomerular Filtration Rate 2019-02-02 05:44:00* Test Item Value Reference Range Interpretation Comments Estimat Glomerular Filtration Rate (test code = 330335520) > 60 >60 Ranges were taken from the National Kidney Disease Education Program and the [facility] Kidney Foundation literature.Reference ranges:60 or greater: Rtplww99-78 ( for 3 consecutive months): Chronic kidney disease 15 or less: Kidney failureAscension Seton Medical Center AustinGlucose Zfnwo4789-12-62 05:44:00* Test Item Value Reference Range Interpretation Comments Glucose Level (test code = SLA1503) 184 74-118 H [facility] AustinCalcium Truyh9609-71-11 05:44:00* Test Item Value Reference Range Interpretation Comments Calcium Level (test code = 94761-1) 8.4 8.4-10.2 [facility] AustinTotal Wrwcmgapm7416-97-71 05:44:00* Test Item Value Reference Range Interpretation Comments Total Bilirubin (test code = 1975-2) 0.6 0.2-1.2 [facility] AustinAspartate Amino Transf (AST/SGOT) 2019-02-02 05:44:00* Test Item Value Reference Range Interpretation Comments Aspartate Amino Transf (AST/SGOT) (test code = Aspartate Amino Transf (AST/SGOT)) 13 5-34 [facility] AustinAlanine Aminotransferase (ALT/SGPT) 2019-02-02 05:44:00* Test Item Value Reference Range Interpretation Comments Alanine Aminotransferase (ALT/SGPT) (test code = 1742-6) 8 0-55 [facility] AustinTotal Dmdxxnm6037-64-83 05:44:00* Test Item Value Reference Range Interpretation Comments Total Protein (test code = 2885-2) 5.5 6.5-8.1 L [facility] AustinAlbumin2019-03-25 05:44:00* Test Item Value Reference Range Interpretation Comments Albumin (test code = 1751-7) 3.3 3.5-5.0 L [facility] AustinGlobulin2019-03-25 05:44:00* Test Item Value Reference Range Interpretation Comments Globulin (test code = 92108-7) 2.2 2.3-3.5 L [facility] AustinAlbumin/Globulin Miyxk7888-31-43 05:44:00 * Test Item Value Reference Range Interpretation Comments Albumin/Globulin Ratio (test code = 1759-0) 1.5 0.8-2.0 [facility] AustinAlkaline Begxxwvjtnl0293-92-37 05:44:00* Test Item Value Reference Range Interpretation Comments Alkaline Phosphatase (test code = 6768-6) 70 40-150 [facility] AustinPhosphorus Xcjee1115-12-96 07:19:00* Test Item Value Reference Range Interpretation Comments Phosphorus Level (test code = DAC9685) 1.0 2.3-4.7 L [facility] AustinMagnesium Btxkm8498-09-96 07:19:00* Test Item Value Reference Range Interpretation Comments Magnesium Level (test code = 81455-6) 1.8 1.3-2.1 [facility] AustinPhosphorus Xutek6602-78-65 07:19:00* Test Item Value Reference Range Interpretation Comments Phosphorus Level (test code = ZYN0451) 1.0 2.3-4.7 L [facility] AustinPhosphorus Ubgsg2537-82-44 07:19:00* Test Item Value Reference Range Interpretation Comments Phosphorus Level (test code = JWT5687) 1.0 2.3-4.7 L [facility] AustinWhite Blood Vucsn1202-44-88 06:57:00* Test Item Value Reference Range Interpretation Comments White Blood Count (test code = 6690-2) 7.09 4.8-10.8 [facility] AustinRed Blood Vmmbz6999-77-55 06:57:00* Test Item Value Reference Range Interpretation Comments Red Blood Count (test code = 789-8) 4.74 4.3-5.7 [facility] AustinHemoglobin2019-03-23 06:57:00* Test Item Value Reference Range Interpretation Comments Hemoglobin (test code = 56745-2) 14.6 14.0-18.0 [facility] AustinHematocrit2019-03-23 06:57:00* Test Item Value Reference Range Interpretation Comments Hematocrit (test code = 4544-3) 38.7 38.2-49.6 [facility] AustinMean Corpuscular Qimlsi8113-17-26 06:57:00* Test Item Value Reference Range Interpretation Comments Mean Corpuscular Volume (test code = 787-2) 81.6 81-99 [facility] AustinMean Corpuscular Qpgvepious4374-17-95 06:57:00* Test Item Value Reference Range Interpretation Comments Mean Corpuscular Hemoglobin (test code = 785-6) 30.8 28-32 [facility] AustinMean Corpuscular Hemoglobin Concent 2019-01-31 06:57:00* Test Item Value Reference Range Interpretation Comments Mean Corpuscular Hemoglobin Concent (test code = 786-4) 37.7 31-35 H [facility] AustinRed Cell Distribution Ygduf9806-48-73 06:57:00* Test Item Value Reference Range Interpretation Comments Red Cell Distribution Width (test code = 67730-9) 12.6 11.7 -14.4 [facility] AustinPlatelet Zhjsv6138-93-90 06:57:00* Test Item Value Reference Range Interpretation Comments Platelet Count (test code = 777-3) 300 140-360 [facility] AustinNeutrophils (%) (Auto)2019-01-31 06:57:00 * Test Item Value Reference Range Interpretation Comments Neutrophils (%) (Auto) (test code = 68645-3) 64.9 38.7-80.0 [facility] AustinLymphocytes (%) (Auto)2019-01-31 06:57:00 * Test Item Value Reference Range Interpretation Comments Lymphocytes (%) (Auto) (test code = 736-9) 26.5 18.0-39.1 [facility] AustinMonocytes (%) (Auto)2019-01-31 06:57:00* Test Item Value Reference Range Interpretation Comments Monocytes (%) (Auto) (test code = 5905-5) 6.8 4.4-11.3 [facility] AustinEosinophils (%) (Auto)2019-01-31 06:57:00 * Test Item Value Reference Range Interpretation Comments Eosinophils (%) (Auto) (test code = 713-8) 0.8 0.0-6.0 [facility] AustinBasophils (%) (Auto)2019-01-31 06:57:00* Test Item Value Reference Range Interpretation Comments Basophils (%) (Auto) (test code = 706-2) 0.4 0.0-1.0 [facility] AustinIM GRANULOCYTES %2019-01-31 06:57:00* Test Item Value Reference Range Interpretation Comments IM GRANULOCYTES % (test code = IM GRANULOCYTES %) 0.6 0.0- 1.0 [facility] AustinNeutrophils # (Auto)2019-01-31 06:57:00* Test Item Value Reference Range Interpretation Comments Neutrophils # (Auto) (test code = 751-8) 4.6 2.1-6.9 [facility] AustinLymphocytes # (Auto)2019-01-31 06:57:00* Test Item Value Reference Range Interpretation Comments Lymphocytes # (Auto) (test code = 21401-2) 1.9 1.0-3.2 [facility] AustinMonocytes # (Auto)2019-01-31 06:57:00* Test Item Value Reference Range Interpretation Comments Monocytes # (Auto) (test code = 742-7) 0.5 0.2-0.8 [facility] AustinEosinophils # (Auto)2019-01-31 06:57:00* Test Item Value Reference Range Interpretation Comments Eosinophils # (Auto) (test code = 711-2) 0.1 0.0-0.4 [facility] AustinBasophils # (Auto)2019-01-31 06:57:00* Test Item Value Reference Range Interpretation Comments Basophils # (Auto) (test code = 704-7) 0.0 0.0-0.1 [facility] AustinAbsolute Immature Granulocyte (auto 2019-01-31 06:57:00* Test Item Value Reference Range Interpretation Comments Absolute Immature Granulocyte (auto (navya t code = Absolute Immature Granulocyte (auto) 0.04 0-0.1 [facility] AustinArterial Blood [id number] 17:24:00* Test Item Value Reference Range Interpretation Comments Arterial Blood pH (test code = 2744-1) 7.44 7.31-7.41 H [facility] AustinArterial Blood Partial Pressure CO2 2019-01-30 17:24:00* Test Item Value Reference Range Interpretation Comments Arterial Blood Partial Pressure CO2 (test code = 2018-) 20 41-51 L [facility] AustinArterial Blood Partial Pressure O2 2019-01-30 17:24:00* Test Item Value Reference Range Interpretation Comments Arterial Blood Partial Pressure O2 (test code = 2018-8) 121 80-105 H [facility] AustinArterial Blood GHQ84717-99-73 17:24:00* Test Item Value Reference Range Interpretation Comments Arterial Blood HCO3 (test code = 1960-4) 13 23-28 L [facility] AustinArterial Blood Base Ztwpev2045-15-55 17:24:00* Test Item Value Reference Range Interpretation Comments Arterial Blood Base Excess (test code = 1925-7) -11.0 -2-3 L [facility] AustinArterial Blood Oxygen Saturation 2019-01-30 17:24:00* Test Item Value Reference Range Interpretation Comments Arterial Blood Oxygen Saturation (test code = 2708-6) 99.0 95-98 H [facility] AustinFiO22019-03-22 17:24:00* Test Item Value Reference Range Interpretation Comments FiO2 (test code = FiO2) 21 PT ON ROOM AIR.[facility] AustinUrine EFT0642-19-28 16:52:00* Test Item Value Reference Range Interpretation Comments Urine WBC (test code = 5821-4) NONE 0-5 [facility] AustinUrine EGQ7723-75-66 16:52:00* Test Item Value Reference Range Interpretation Comments Urine RBC (test code = 38741-8) NONE 0-5 [facility] AustinUrine Tqrybyax0648-77-03 16:52:00* Test Item Value Reference Range Interpretation Comments Urine Bacteria (test code = 18066-5) FEW NONE [facility] AustinUrine Epithelial Etezr0341-63-75 16:52:00 * Test Item Value Reference Range Interpretation Comments Urine Epithelial Cells (test code = 52845-8) NONE NONE [facility] Amorphous Unobtnge0090-24-49 16:52:00* Test Item Value Reference Range Interpretation Comments Urine Amorphous Sediment (test code = 8246-1) MODERATE FEW H [facility] Hyaline Pboyh7775-38-19 16:52:00* Test Item Value Reference Range Interpretation Comments Urine Hyaline Casts (test code = 75439-8) 0-1 0-1 [facility] Amorphous Jhmqfnwt6671-11-41 16:52:00* Test Item Value Reference Range Interpretation Comments Urine Amorphous Sediment (test code = 8246-1) MODERATE FEW H [facility] Hyaline Ywdhy0637-10-32 16:52:00* Test Item Value Reference Range Interpretation Comments Urine Hyaline Casts (test code = 13788-6) 0-1 0-1 [facility] Amorphous Yxnndnaf7805-46-64 16:52:00* Test Item Value Reference Range Interpretation Comments Urine Amorphous Sediment (test code = 8246-1) MODERATE FEW H [facility] Hyaline Tgrjy4460-93-65 16:52:00* Test Item Value Reference Range Interpretation Comments Urine Hyaline Casts (test code = 17032-2) 0-1 0-1 [facility] Amorphous Wmnrdjcf8128-23-73 16:52:00* Test Item Value Reference Range Interpretation Comments Urine Amorphous Sediment (test code = 8246-1) MODERATE FEW H [facility] Hyaline Hcjxd3445-96-06 16:52:00* Test Item Value Reference Range Interpretation Comments Urine Hyaline Casts (test code = 33862-0) 0-1 0-1 [facility] Amorphous Vefrrkft1801-99-30 16:52:00* Test Item Value Reference Range Interpretation Comments Urine Amorphous Sediment (test code = 8246-1) MODERATE FEW H [facility] Hyaline Symts0612-66-68 16:52:00* Test Item Value Reference Range Interpretation Comments Urine Hyaline Casts (test code = 90863-7) 0-1 0-1 [facility] AustinAmylase Mwzrp4596-52-38 16:50:00* Test Item Value Reference Range Interpretation Comments Amylase Level (test code = 1798-8) 15 25-125 L [facility] AustinLipase2019-03-22 16:50:00* Test Item Value Reference Range Interpretation Comments Lipase (test code = 3040-3) < 4 8-78 L [facility] AustinUrine Ujxra7614-00-11 16:38:00* Test Item Value Reference Range Interpretation Comments Urine Color (test code = 5778-6) STRAW YELLOW [facility] AustinUrine Dxhnbfy4867-30-87 16:38:00* Test Item Value Reference Range Interpretation Comments Urine Clarity (test code = 15214-3) SL CLOUDY CLEAR H [facility] AustinUrine Specific Vkztvpy3196-47-57 16:38:00 * Test Item Value Reference Range Interpretation Comments Urine Specific [place] (test code = 5811-5) 1.030 1.010-1.02 5 H [facility] AustinUrine wE0761-93-08 16:38:00* Test Item Value Reference Range Interpretation Comments Urine pH (test code = 69424-0) 6 5-7 [facility] AustinUrine Leukocyte Lpwfwmxt0506-72-27 16:38:00* Test Item Value Reference Range Interpretation Comments Urine Leukocyte Esterase (test code = 5799-2) NEGATIVE NEGATIVE [facility] AustinUrine Cgxvwce2501-18-59 16:38:00* Test Item Value Reference Range Interpretation Comments Urine Nitrite (test code = 37391-0) NEGATIVE NEGATIVE [facility] AustinUrine Wmeykwk7337-82-60 16:38:00* Test Item Value Reference Range Interpretation Comments Urine Protein (test code = 5804-0) 1+ NEGATIVE H [facility] AustinUrine Glucose (UA)2019-01-30 16:38:00* Test Item Value Reference Range Interpretation Comments Urine Glucose (UA) (test code = 2349-9) 2+ NEGATIVE H [facility] AustinUrine Zjpcwoa9439-73-85 16:38:00* Test Item Value Reference Range Interpretation Comments Urine Ketones (test code = 28804-8) 2+ NEGATIVE H [facility] AustinUrine Qflsqsvugdof4038-07-06 16:38:00* Test Item Value Reference Range Interpretation Comments Urine Urobilinogen (test code = 01947-1) 0.2 0.2-1 [facility] AustinUrine Nyulzmjay5722-23-38 16:38:00* Test Item Value Reference Range Interpretation Comments Urine Bilirubin (test code = 1978-6) 1+ NEGATIVE H Confirmatory test currently unavailable. False positive results may occur.[facility] AustinUrine Nuxrd3722-95-96 16:38:00* Test Item Value Reference Range Interpretation Comments Urine Blood (test code = 63985-4) NEGATIVE NEGATIVE [facility] AustinGLUBED2019-02-24 16:31:00* Test Item Value Reference Range Interpretation Comments GLUBED (test code = GLUBED) 166 mg/dL 74-106 H Performed by certified paper roll machine operator at [facility] IXBGYA2541-85-72 14:11:00* Test Item Value Reference Range Interpretation Comments GLUBED (test code = GLUBED) 120 mg/dL 74-106 H Performed by certified paper roll machine operator at [facility] FFJRJN6035-89-08 14:11:00* Test Item Value Reference Range Interpretation Comments GLUBED (test code = GLUBED) 108 mg/dL 74-106 H Performed by certified paper roll machine operator at [facility] BASIC METABOLIC PJMDD6917-97-19 13:37:00* Test Item Value Reference Range Interpretation [...] code = CA) 7.6 mg/dL 8.5-10.1 L IEWDPB1766-76-51 11:24:00* Test Item Value Reference Range Interpretation Comments GLUBED (test code = GLUBED) 114 mg/dL 74-106 H Performed by certified paper roll machine operator at [facility] BASIC METABOLIC SJOZB5187-64-13 10:53:00* Test Item Value Reference Range Interpretation [...] code = CA) 8.2 mg/dL 8.5-10.1 L AULUGC4704-05-92 10:29:00* Test Item Value Reference Range Interpretation Comments GLUBED (test code = GLUBED) 129 mg/dL 74-106 H Performed by certified paper roll machine operator at [facility] EYRIJM4763-39-49 09:49:00* Test Item Value Reference Range Interpretation Comments GLUBED (test code = GLUBED) 139 mg/dL 74-106 H Performed by certified paper roll machine operator at [facility] PCWIOG7290-10-64 08:30:00* Test Item Value Reference Range Interpretation Comments GLUBED (test code = GLUBED) 138 mg/dL 74-106 H Performed by certified paper roll machine operator at [facility] QILOSW4327-89-48 08:19:00* Test Item Value Reference Range Interpretation Comments GLUBED (test code = GLUBED) 133 mg/dL 74-106 H Performed by certified paper roll machine operator at [facility] WPSFGS6997-06-40 06:19:00* Test Item Value Reference Range Interpretation Comments GLUBED (test code = GLUBED) 149 mg/dL 74-106 H Performed by certified paper roll machine operator at [facility] OLOWUZ0919-42-46 06:19:00* Test Item Value Reference Range Interpretation Comments GLUBED (test code = GLUBED) 124 mg/dL 74-106 H Performed by certified paper roll machine operator at [facility] TUCJXV7123-89-52 06:19:00* Test Item Value Reference Range Interpretation Comments GLUBED (test code = GLUBED) 100 mg/dL 74-106 N Performed by certified paper roll machine operator at [facility] LZIVZZ5148-67-86 06:19:00* Test Item Value Reference Range Interpretation Comments GLUBED (test code = GLUBED) 117 mg/dL 74-106 H Performed by certified paper roll machine operator at [facility] GXZRPT8667-91-82 06:19:00* Test Item Value Reference Range Interpretation Comments GLUBED (test code = GLUBED) 134 mg/dL 74-106 H Performed by certified paper roll machine operator at [facility] IEWTWQ8949-53-36 06:19:00* Test Item Value Reference Range Interpretation Comments GLUBED (test code = GLUBED) 171 mg/dL 74-106 H Performed by certified paper roll machine operator at [facility] YDUMDC5305-36-50 06:19:00* Test Item Value Reference Range Interpretation Comments GLUBED (test code = GLUBED) 180 mg/dL 74-106 H Performed by certified paper roll machine operator at [facility] KTAIGQ4387-18-11 06:19:00* Test Item Value Reference Range Interpretation Comments GLUBED (test code = GLUBED) 222 mg/dL 74-106 H Performed by certified paper roll machine operator at [facility] EQHDGG2442-44-05 06:19:00* Test Item Value Reference Range Interpretation Comments GLUBED (test code = GLUBED) 254 mg/dL 74-106 H Performed by certified paper roll machine operator at [facility] PROCALCITONIN (PCT)2019-01-04 04:08:00* Test Item [...] interpreted taking into account the patients history. [id number] 03:50:00* Test Item Value Reference Range Interpretation Comments GLYCOSYLATED HEMOGLOBIN (HA1C) (test code = GLYHGB) 8.8 % HbA1 4. 8-6.0 H ESTIMATED AVERAGE GLUCOSE (test code = EAG) 206 MG/DL BASIC METABOLIC FPMBJ0123-12-37 03:05:00* Test Item Value Reference Range Interpretation [...] code = CA) 8.4 mg/dL 8.5-10.1 L BIFCGPFLVD4982-00-95 03:05:00* Test Item Value Reference Range Interpretation Comments PHOSPHORUS (test code = PHOS) 1.1 mg/dL 2.5-4.9 L RFUPTSJCN4569-61-91 03:05:00* Test Item Value Reference Range Interpretation Comments MAGNESIUM (test code = MAG) 2.3 mg/dL 1.8-2.4 N CALCIUM RCBTIUW9189-68-94 03:05:00* Test Item Value Reference Range Interpretation Comments CALCIUM IONIZED (test code = FIDEL) 1.20 mmol/L 1.12-1.32 N BASIC METABOLIC SEVYK8615-86-27 03:02:00* Test Item Value Reference Range Interpretation [...] CALCIUM (test code = CA) mg/dL 8.5-10.1 XNYNECURYM2308-26-70 03:02:00* Test Item Value Reference Range Interpretation Comments PHOSPHORUS (test code = PHOS) mg/dL 2.5-4.9 IYWCATTNA4803-88-25 03:02:00* Test Item Value Reference Range Interpretation Comments MAGNESIUM (test code = MAG) mg/dL 1.8-2.4 CALCIUM IBNZZEL3038-59-21 03:02:00* Test Item Value Reference Range Interpretation Comments CALCIUM IONIZED (test code = FIDEL) 1.20 mmol/L 1.12-1.32 N CBC W/AUTO GARU7505-55-69 02:43:00* Test Item Value Reference Range Interpretation [...] DIFF REQUIRED (test code = MDIFF) NO EUPQUCWIC0395-30-36 22:46:00* Test Item Value Reference Range Interpretation Comments MAGNESIUM (test code = MAG) 2.1 mg/dL 1.8-2.4 N SPECIMEN COMMENTS: Q4H while on insulin dripSPECIMEN COMMENTS: Q8H while on insu dario dripBASIC METABOLIC DPTYL9016-99-04 21:34:00* Test Item Value Reference Range Interpretation Comments SODIUM (test code = NA) 123 mmol/L 136-145 LL Resu lts called to [id number] by V.[email or web address] 01/03/19 2134Critical results verified and [...] L SPECIMEN COMMENTS: Q4H while on insulin cgaoKTULOU2838-66-98 21:05:00* Test Item Value Reference Range Interpretation Comments GLUBED (test code = GLUBED) 299 mg/dL 74-106 H Performed by certified paper roll machine operator at [facility] CXRZPJ5827-82-37 21:05:00* Test Item Value Reference Range Interpretation Comments GLUBED (test code = GLUBED) 354 mg/dL 74-106 H Performed by certified paper roll machine operator at [facility] - XR CHEST 1 [id number] 20:33:00 FAX: Kira Dodson MD [phone] Cando: St: ADM FAX: Karthik Rm MD [phone] Name: [facility]EVIN [facility]I [facility] : 1995 Age/S: 23/M [address] [facility] Unit #: [id number] Loc: [place] [address] Phys: Karthik Rm MD Acct: [id number] Dis Date: Status: ADM IN PHONE #: [phone] Exam Date: 01/03/20192008 FAX #: [phone] Reason: cough EXAMS: CPT CODE: [id number] XR CHEST 1 V 36011 HISTORY: Cough. COMPARISON: None available. No acute [...] #/LPF FEW Urine Source? Clean CatchBASIC METABOLIC [id number] 17:51:00* Test Item Value Reference Range Interpretation Comments SODIUM (test code = NA) 120 mmol/L 136-145 LL Resu lts called to [id number] by V.[email or web address] 01/03/19 1751Critical results verified and [...] CA) 9.1 mg/dL 8.5-10.1 N HEPATIC FUNCTION [id number] 17:51:00* Test Item Value Reference Range Interpretation [...] reference range due to change in reagent. YAVUZC9936-87-30 17:51:00* Test Item Value Reference Range Interpretation Comments LIPASE (test code = LIP) 36 U/L 73.0-393.0 L [id number]-W6641-97-23 17:46:00* Test Item Value Reference Range Interpretation Comments TROPONIN-I (test code = TROPI) <0.015 ng/mL 0-0.045 N PAZWPS2042-82-90 17:20:00* Test Item Value Reference Range Interpretation Comments GLUBED (test code = GLUBED) 373 mg/dL 74-106 H Performed by certified paper roll machine operator at [facility] CBC W/O [id number] 17:04:00* Test Item Value Reference Range Interpretation [...] MPV) 9.4 fL 6.7-11.0 N Hemoglobin A1c Etybolb2938-72-14 06:18:00* Test Item Value Reference Range Interpretation Comments Hemoglobin A1c Percent (test code = Hemoglobin A1c Percent) 9.6 4.0-7.0 H [facility] AustinHemoglobin A1c Uumoiye3370-65-50 06:18:00 * Test Item Value Reference Range Interpretation Comments Hemoglobin A1c Percent (test code = Hemoglobin A1c Percent) 9.6 4.0-7.0 H [facility] AustinHemoglobin A1c Gqsjclp6585-71-66 06:18:00 * Test Item Value Reference Range Interpretation Comments Hemoglobin A1c Percent (test code = Hemoglobin A1c Percent) 9.6 4.0-7.0 H [facility] AustinCreatine Kinase [id number] 23:03:00* Test Item Value Reference Range Interpretation Comments Creatine Kinase MB (test code = 36685-9) 1.50 0-5.0 [facility] AustinTroponin [id number] 23:03:00* Test Item Value Reference Range Interpretation Comments Troponin I (test code = SDX7099) < 0.001 0-0.300 [facility] AustinCreatine Kinase [id number] 23:03:00* Test Item Value Reference Range Interpretation Comments Creatine Kinase MB (test code = 48519-2) 1.50 0-5.0 [facility] AustinTroponin [id number] 23:03:00* Test Item Value Reference Range Interpretation Comments Troponin I (test code = QFY8498) < 0.001 0-0.300 [facility] AustinCreatine Gqdfpj3816-59-01 23:00:00* Test Item Value Reference Range Interpretation Comments Creatine Kinase (test code = 2157-6) 394 30-200 H [facility] AustinCreatine Mzvros5602-83-02 23:00:00* Test Item Value Reference Range Interpretation Comments Creatine Kinase (test code = 2157-6) 394 30-200 H [facility] AustinCHES SINGLE (PORTABLE)2018-09-09 22:50:00 [place] [address] Patient Name: KEVIN LOMELI MR #: [id number] : 1995 Age/Sex: 23/M Req #: [id number] Adm Physician: Ordered by: SAMUEL ARIAS MD Report #: [id number] Location: ER Room/Bed: Procedure: 1029- 80 DX/CHEST SINGLE (PORTABLE) Exam Date: Exam [...] 56 COPY TO: SAMUEL VIEIRA MD Bedside Vtzuxoa7525-25-66 12:26:00* Test Item Value Reference Range Interpretation Comments Bedside Glucose (test code = 49521-3) 170 70-120 H Meter ID: [id number] Centerodium Level 2018-07-26 05:06:00* Test Item Value Reference Range Interpretation Comments Sodium Level (test code = 2951-2) 137 136-145 [facility] AustinPotassium Siwne0568-73-21 05:06:00* Test Item Value Reference Range Interpretation Comments Potassium Level (test code = 2823-3) 3.2 3.5-5.1 L [facility] AustinChloride Mmxqa6666-13-10 05:06:00* Test Item Value Reference Range Interpretation Comments Chloride Level (test code = 2075-0) 97 98-107 L [facility] AustinCarbon Dioxide Geidd0461-31-75 05:06:00* Test Item Value Reference Range Interpretation Comments Carbon Dioxide Level (test code = 2028-9) 28 22-29 [facility] AustinAnion Kpd4721-05-41 05:06:00* Test Item Value Reference Range Interpretation Comments Anion Gap (test code = 29144-0) 15.2 8-16 [facility] AustinBlood Urea Lubnwjfd3422-09-72 05:06:00* Test Item Value Reference Range Interpretation Comments Blood Urea Nitrogen (test code = 3094-0) 8 7-26 [facility] AustinCreatinine2018-09-15 05:06:00* Test Item Value Reference Range Interpretation Comments Creatinine (test code = 2160-0) 0.66 0.72-1.25 L [facility] AustinBUN/Creatinine Gqomj6204-12-65 05:06:00* Test Item Value Reference Range Interpretation Comments BUN/Creatinine Ratio (test code = 3097-3) 12 6-25 [facility] AustinEstimat Glomerular Filtration Rate 2018-07-26 05:06:00* Test Item Value Reference Range Interpretation Comments Estimat Glomerular Filtration Rate (test code = 785987425) 60- >60 Ranges were taken from the National Kidney Disease Education Program and the [facility] literature.Reference ranges:60 or greater: Gfehlr72-63 ( for 3 consecutive months): Chronic kidney disease 15 or less: Kidney failure[facility] AustinGlucose Wuzoq1169-15-81 05:06:00* Test Item Value Reference Range Interpretation Comments Glucose Level (test code = VTN2847) 197 74-118 H [facility] AustinCalcium Ycpbz4279-56-77 05:06:00* Test Item Value Reference Range Interpretation Comments Calcium Level (test code = 16651-0) 8.5 8.4-10.2 [facility] AustinWhite Blood Lsgjw4817-05-32 04:49:00* Test Item Value Reference Range Interpretation Comments White Blood Count (test code = 6690-2) 6.78 4.8-10.8 [facility] AustinRed Blood Oiivp9564-65-82 04:49:00* Test Item Value Reference Range Interpretation Comments Red Blood Count (test code = 789-8) 4.74 4.3-5.7 [facility] AustinHemoglobin2018-09-15 04:49:00* Test Item Value Reference Range Interpretation Comments Hemoglobin (test code = 95834-6) 14.7 14.0-18.0 [facility] AustinHematocrit2018-09-15 04:49:00* Test Item Value Reference Range Interpretation Comments Hematocrit (test code = 4544-3) 39.8 38.2-49.6 [facility] AustinMean Corpuscular Xhmixm3486-97-57 04:49:00* Test Item Value Reference Range Interpretation Comments Mean Corpuscular Volume (test code = 787-2) 84.0 81-99 [facility] AustinMean Corpuscular Fidcvbfpab2143-95-97 04:49:00* Test Item Value Reference Range Interpretation Comments Mean Corpuscular Hemoglobin (test code = 785-6) 31.0 28-32 [facility] AustinMean Corpuscular Hemoglobin Concent 2018-07-26 04:49:00* Test Item Value Reference Range Interpretation Comments Mean Corpuscular Hemoglobin Concent (test code = 786-4) 36.9 31-35 H [facility] AustinRed Cell Distribution Jtifz3861-33-83 04:49:00* Test Item Value Reference Range Interpretation Comments Red Cell Distribution Width (test code = 88523-1) 11.7 11.7 -14.4 [facility] AustinPlatelet Heocf9840-68-85 04:49:00* Test Item Value Reference Range Interpretation Comments Platelet Count (test code = 777-3) 204 140-360 [facility] AustinNeutrophils (%) (Auto)2018-07-26 04:49:00 * Test Item Value Reference Range Interpretation Comments Neutrophils (%) (Auto) (test code = 96683-1) 65.3 38.7-80.0 [facility] AustinLymphocytes (%) (Auto)2018-07-26 04:49:00 * Test Item Value Reference Range Interpretation Comments Lymphocytes (%) (Auto) (test code = 736-9) 26.0 18.0-39.1 [facility] AustinMonocytes (%) (Auto)2018-07-26 04:49:00* Test Item Value Reference Range Interpretation Comments Monocytes (%) (Auto) (test code = 5905-5) 8.4 4.4-11.3 [facility] AustinEosinophils (%) (Auto)2018-07-26 04:49:00 * Test Item Value Reference Range Interpretation Comments Eosinophils (%) (Auto) (test code = 713-8) 0.1 0.0-6.0 [facility] AustinBasophils (%) (Auto)2018-07-26 04:49:00* Test Item Value Reference Range Interpretation Comments Basophils (%) (Auto) (test code = 706-2) 0.1 0.0-1.0 [facility] AustinIM GRANULOCYTES %2018-07-26 04:49:00* Test Item Value Reference Range Interpretation Comments IM GRANULOCYTES % (test code = IM GRANULOCYTES %) 0.1 0.0- 1.0 [facility] AustinNeutrophils # (Auto)2018-07-26 04:49:00* Test Item Value Reference Range Interpretation Comments Neutrophils # (Auto) (test code = 751-8) 4.4 2.1-6.9 [facility] AustinLymphocytes # (Auto)2018-07-26 04:49:00* Test Item Value Reference Range Interpretation Comments Lymphocytes # (Auto) (test code = 38203-4) 1.8 1.0-3.2 [facility] AustinMonocytes # (Auto)2018-07-26 04:49:00* Test Item Value Reference Range Interpretation Comments Monocytes # (Auto) (test code = 742-7) 0.6 0.2-0.8 [facility] AustinEosinophils # (Auto)2018-07-26 04:49:00* Test Item Value Reference Range Interpretation Comments Eosinophils # (Auto) (test code = 711-2) 0.0 0.0-0.4 [facility] AustinBasophils # (Auto)2018-07-26 04:49:00* Test Item Value Reference Range Interpretation Comments Basophils # (Auto) (test code = 704-7) 0.0 0.0-0.1 [facility] AustinAbsolute Immature Granulocyte (auto 2018-07-26 04:49:00* Test Item Value Reference Range Interpretation Comments Absolute Immature Granulocyte (auto (navya t code = Absolute Immature Granulocyte (auto) 0.01 0-0.1 [facility] AustinMagnesium Kykhv1205-23-05 19:07:00* Test Item Value Reference Range Interpretation Comments Magnesium Level (test code = 45190-3) 1.8 1.3-2.1 [facility] AustinHemoglobin A1c Dlsascl1516-20-55 07:45:00 * Test Item Value Reference Range Interpretation Comments Hemoglobin A1c Percent (test code = Hemoglobin A1c Percent) 9.8 4.0-7.0 H [facility] AustinThyroid Stimulating Hormone (TSH) 2018-07-24 07:43:00* Test Item Value Reference Range Interpretation Comments Thyroid Stimulating Hormone (TSH) (test code = 63953-1) 0.512 0.350-4.940 [facility] AustinThyroid Stimulating Hormone (TSH) 2018-07-24 07:43:00* Test Item Value Reference Range Interpretation Comments Thyroid Stimulating Hormone (TSH) (test code = 23190-5) 0.512 0.350-4.940 [facility] AustinThyroid Stimulating Hormone (TSH) 2018-07-24 07:43:00* Test Item Value Reference Range Interpretation Comments Thyroid Stimulating Hormone (TSH) (test code = 50812-2) 0.512 0.350-4.940 [facility] AustinTriglycerides Pcgfp6956-12-01 07:23:00* Test Item Value Reference Range Interpretation Comments Triglycerides Level (test code = 2571-8) 120 0-149 [facility] AustinCholesterol Yemta8093-01-18 07:23:00* Test Item Value Reference Range Interpretation Comments Cholesterol Level (test code = 2093-3) 181 0-199 Less than 200 mg/dL Low Kyjc792 - 239 mg/dL Borderline Gevr035 m g/dl and greater High Risk [facility] AustinLDL Nmbpaasamna7042-57-93 07:23:00* Test Item Value Reference Range Interpretation Comments LDL Cholesterol (test code = 2089-1) 93 60-130 [facility] AustinHDL Xxswimsmdhv2246-35-99 07:23:00* Test Item Value Reference Range Interpretation Comments HDL Cholesterol (test code = 2085-9) 64 40-60 H [facility] AustinCholesterol/HDL Ipeav1211-14-95 07:23:00 * Test Item Value Reference Range Interpretation Comments Cholesterol/HDL Ratio (test code = 9830-1) 2.8 3.9-4.7 L [facility] AustinTriglycerides Vvbfg4609-85-09 07:23:00* Test Item Value Reference Range Interpretation Comments Triglycerides Level (test code = 2571-8) 120 0-149 [facility] AustinCholesterol Ktlkh2399-38-87 07:23:00* Test Item Value Reference Range Interpretation Comments Cholesterol Level (test code = 2093-3) 181 0-199 Less than 200 mg/dL Low Slwg353 - 239 mg/dL Borderline Ukgv418 m g/dl and greater High Risk [facility] AustinLDL Fwzqxfhqdql8488-39-59 07:23:00* Test Item Value Reference Range Interpretation Comments LDL Cholesterol (test code = 2089-1) 93 60-130 [facility] Poodknqrnph4188-44-88 07:23:00* Test Item Value Reference Range Interpretation Comments HDL Cholesterol (test code = 2085-9) 64 40-60 H [facility] AustinCholesterol/HDL Bibxs5571-84-88 07:23:00 * Test Item Value Reference Range Interpretation Comments Cholesterol/HDL Ratio (test code = 9830-1) 2.8 3.9-4.7 L [facility] AustinTriglycerides Nqcoh0694-74-82 07:23:00* Test Item Value Reference Range Interpretation Comments Triglycerides Level (test code = 2571-8) 120 0-149 [facility] AustinCholesterol Biunh8926-33-26 07:23:00* Test Item Value Reference Range Interpretation Comments Cholesterol Level (test code = 2093-3) 181 0-199 Less than 200 mg/dL Low Luts709 - 239 mg/dL Borderline Ixtx288 m g/dl and greater High Risk [facility] AustinLDL Wmjebaknibs4909-30-56 07:23:00* Test Item Value Reference Range Interpretation Comments LDL Cholesterol (test code = 2089-1) 93 60-130 [facility] Mjyaquopmnf4545-14-70 07:23:00* Test Item Value Reference Range Interpretation Comments HDL Cholesterol (test code = 2085-9) 64 40-60 H [facility] AustinCholesterol/HDL Shvke9590-06-98 07:23:00 * Test Item Value Reference Range Interpretation Comments Cholesterol/HDL Ratio (test code = 9830-1) 2.8 3.9-4.7 L [facility] AustinTriglycerides Lqsmt2532-14-09 07:23:00* Test Item Value Reference Range Interpretation Comments Triglycerides Level (test code = 2571-8) 120 0-149 [facility] AustinCholesterol Phusf3148-25-94 07:23:00* Test Item Value Reference Range Interpretation Comments Cholesterol Level (test code = 2093-3) 181 0-199 Less than 200 mg/dL Low Swfc938 - 239 mg/dL Borderline Ranu455 m g/dl and greater High Risk [facility] AustinLDL Pkkwkocykyr4502-20-17 07:23:00* Test Item Value Reference Range Interpretation Comments LDL Cholesterol (test code = 2089-1) 93 60-130 [facility] AustinHDL Trgzdjdblrz7954-88-63 07:23:00* Test Item Value Reference Range Interpretation Comments HDL Cholesterol (test code = 2085-9) 64 40-60 H [facility] AustinCholesterol/HDL Mqumo6254-41-20 07:23:00 * Test Item Value Reference Range Interpretation Comments Cholesterol/HDL Ratio (test code = 9830-1) 2.8 3.9-4.7 L [facility] AustinUrine ZHJ5051-07-58 20:17:00* Test Item Value Reference Range Interpretation Comments Urine WBC (test code = 5821-4) 0-5 0-5 [facility] AustinUrine WMN3560-32-48 20:17:00* Test Item Value Reference Range Interpretation Comments Urine RBC (test code = 69024-4) NONE 0-5 [facility] AustinUrine Emvfmdfd8965-92-89 20:17:00* Test Item Value Reference Range Interpretation Comments Urine Bacteria (test code = 59876-4) FEW NONE [facility] AustinUrine Epithelial Qsost2582-26-05 20:17:00 * Test Item Value Reference Range Interpretation Comments Urine Epithelial Cells (test code = 07219-4) FEW NONE [facility] AustinUrine Coarse Granular Wrdke5425-42-25 20:17:00* Test Item Value Reference Range Interpretation Comments Urine Coarse Granular Casts (test code = 72618-7) 1-5 >0 H [facility] AustinUrine Coarse Granular Arkka7764-75-85 20:17:00* Test Item Value Reference Range Interpretation Comments Urine Coarse Granular Casts (test code = 45398-8) 1-5 >0 H [facility] AustinUrine Coarse Granular Kgqjd8845-06-99 20:17:00* Test Item Value Reference Range Interpretation Comments Urine Coarse Granular Casts (test code = 35088-8) 1-5 >0 H [facility] AustinUrine Qucef2840-83-15 20:11:00* Test Item Value Reference Range Interpretation Comments Urine Color (test code = 5778-6) YELLOW YELLOW [facility] AustinUrine Yaspjro5963-09-66 20:11:00* Test Item Value Reference Range Interpretation Comments Urine Clarity (test code = 09821-8) CLEAR CLEAR [facility] AustinUrine Specific Wywmfex1370-61-51 20:11:00 * Test Item Value Reference Range Interpretation Comments Urine Specific [place] (test code = 5811-5) 1.030 1.010-1.02 5 H [facility] AustinUrine oG9286-23-97 20:11:00* Test Item Value Reference Range Interpretation Comments Urine pH (test code = 60726-1) 5 5-7 [facility] AustinUrine Leukocyte Uzbnbaji5490-74-94 20:11:00* Test Item Value Reference Range Interpretation Comments Urine Leukocyte Esterase (test code = 5799-2) NEGATIVE NEGATIVE [facility] AustinUrine Jspehih3392-36-42 20:11:00* Test Item Value Reference Range Interpretation Comments Urine Nitrite (test code = 83772-1) NEGATIVE NEGATIVE [facility] AustinUrine Ilxyudd7573-70-43 20:11:00* Test Item Value Reference Range Interpretation Comments Urine Protein (test code = 5804-0) TRACE NEGATIVE H [facility] AustinUrine Glucose (UA)2018-07-23 20:11:00* Test Item Value Reference Range Interpretation Comments Urine Glucose (UA) (test code = 2349-9) 2+ NEGATIVE H [facility] AustinUrine Vrdmtkf8396-46-81 20:11:00* Test Item Value Reference Range Interpretation Comments Urine Ketones (test code = 53611-6) 2+ NEGATIVE H [facility] AustinUrine Opiates Xpbhqe1477-37-48 20:11:00* Test Item Value Reference Range Interpretation Comments Urine Opiates Screen (test code = 41316-8) POSITIVE NEGATIVE H This test provides only a screen. Positive results should be repeated by a confi rmatory test.[facility] AustinUrine Barbiturates Screen 2018-07-23 20:11:00* Test Item Value Reference Range Interpretation Comments Urine Barbiturates Screen (test code = 152818443) NEGATIVE NEGA TIVE [facility] AustinUrine Phencyclidine Ycyegi3784-23-65 20:11:00* Test Item Value Reference Range Interpretation Comments Urine Phencyclidine Screen (test code = 75786-8) NEGATIVE NEGAT JESSIKA [facility] AustinUrine Amphetamines Knfuqy9113-58-18 20:11:00* Test Item Value Reference Range Interpretation Comments Urine Amphetamines Screen (test code = 49787-7) NEGATIVE NEGATI VE [facility] AustinUrine Methamphetamines Euweqv8175-34-24 20:11:00* Test Item Value Reference Range Interpretation Comments Urine Methamphetamines Screen (test code = Urine Metha mphetamines Screen) NEGATIVE NEGATIVE [facility] AustinUrine Benzodiazepines Btpqbl8440-14-26 20:11:00* Test Item Value Reference Range Interpretation Comments Urine Benzodiazepines Screen (test code = 06812-9) NEGATIVE NEG ATIVE [facility] AustinUrine Cocaine Vmyool0712-88-56 20:11:00* Test Item Value Reference Range Interpretation Comments Urine Cocaine Screen (test code = 3398-5) NEGATIVE NEGATIVE [facility] AustinUrine Cannabinoids Dckvpp1140-88-98 20:11:00* Test Item Value Reference Range Interpretation Comments Urine Cannabinoids Screen (test code = 64627-7) POSITIVE NEGATI VE H This test provides only a screen. Positive results should be repeated by a confi rmatory test.[facility] AustinUrine Fpomxsqskkpj5543-22-02 20:11:00* Test Item Value Reference Range Interpretation Comments Urine Urobilinogen (test code = 64676-7) 0.2 0.2-1 [facility] AustinUrine Qnfnwjsbt7643-65-11 20:11:00* Test Item Value Reference Range Interpretation Comments Urine Bilirubin (test code = 1978-6) NEGATIVE NEGATIVE [facility] AustinUrine Sqbof5486-58-05 20:11:00* Test Item Value Reference Range Interpretation Comments Urine Blood (test code = 05283-7) TRACE NEGATIVE H [facility] AustinUrine Opiates Umdkfm4660-41-46 20:11:00* Test Item Value Reference Range Interpretation Comments Urine Opiates Screen (test code = 69309-9) POSITIVE NEGATIVE H This test provides only a screen. Positive results should be repeated by a confi rmatory test.[facility] AustinUrine Barbiturates Screen 2018-07-23 20:11:00* Test Item Value Reference Range Interpretation Comments Urine Barbiturates Screen (test code = 720380507) NEGATIVE NEGA TIVE [facility] AustinUrine Phencyclidine Gtdwwi3967-93-95 20:11:00* Test Item Value Reference Range Interpretation Comments Urine Phencyclidine Screen (test code = 03024-9) NEGATIVE NEGAT JESSIKA [facility] AustinUrine Amphetamines Jqfheg2505-42-30 20:11:00* Test Item Value Reference Range Interpretation Comments Urine Amphetamines Screen (test code = 58306-8) NEGATIVE NEGATI VE [facility] AustinUrine Methamphetamines Taxqvt3819-52-70 20:11:00* Test Item Value Reference Range Interpretation Comments Urine Methamphetamines Screen (test code = Urine Metha mphetamines Screen) NEGATIVE NEGATIVE [facility] AustinUrine Benzodiazepines Jvmsec6498-54-88 20:11:00* Test Item Value Reference Range Interpretation Comments Urine Benzodiazepines Screen (test code = 62566-9) NEGATIVE NEG ATIVE [facility] AustinUrine Cocaine Utnhnm5213-56-60 20:11:00* Test Item Value Reference Range Interpretation Comments Urine Cocaine Screen (test code = 3398-5) NEGATIVE NEGATIVE [facility] AustinUrine Cannabinoids Xsjqrt2700-96-66 20:11:00* Test Item Value Reference Range Interpretation Comments Urine Cannabinoids Screen (test code = 14300-6) POSITIVE NEGATI VE H This test provides only a screen. Positive results should be repeated by a confi rmatory test.[facility] AustinDifferential Total Cells Ivbktui1313-06-81 19:22:00* Test Item Value Reference Range Interpretation Comments Differential Total Cells Counted (test code = Differen tial Total Cells Counted) 100 [facility] AustinNeutrophils % (Manual)2018-07-23 19:22:00 * Test Item Value Reference Range Interpretation Comments Neutrophils % (Manual) (test code = 92462-4) 79 40-74 H [facility] AustinLymphocytes % (Manual)2018-07-23 19:22:00 * Test Item Value Reference Range Interpretation Comments Lymphocytes % (Manual) (test code = 737-7) 11 19-48 L [facility] AustinMonocytes % (Manual)2018-07-23 19:22:00* Test Item Value Reference Range Interpretation Comments Monocytes % (Manual) (test code = 744-3) 10 3.4-9.0 H [facility] AustinPlatelet Oksqugbp8823-29-10 19:22:00* Test Item Value Reference Range Interpretation Comments Platelet Estimate (test code = 50800-9) ADEQUATE [facility] AustinPlatelet Morphology Qptcger7479-16-71 19:22:00* Test Item Value Reference Range Interpretation Comments Platelet Morphology Comment (test code = 27501-4) NORMAL [facility] AustinRed Cell Morphology Jurntjm4340-92-57 19:22:00* Test Item Value Reference Range Interpretation Comments Red Cell Morphology Comment (test code = 6742-1) NORMAL [facility] AustinDifferential Total Cells Counted 2018-07-23 19:22:00* Test Item Value Reference Range Interpretation Comments Differential Total Cells Counted (test code = Differen tial Total Cells Counted) 100 [facility] AustinNeutrophils % (Manual)2018-07-23 19:22:00 * Test Item Value Reference Range Interpretation Comments Neutrophils % (Manual) (test code = 52851-7) 79 40-74 H [facility] AustinLymphocytes % (Manual)2018-07-23 19:22:00 * Test Item Value Reference Range Interpretation Comments Lymphocytes % (Manual) (test code = 737-7) 11 19-48 L [facility] AustinMonocytes % (Manual)2018-07-23 19:22:00* Test Item Value Reference Range Interpretation Comments Monocytes % (Manual) (test code = 744-3) 10 3.4-9.0 H [facility] AustinPlatelet Eyjlhpya2621-85-21 19:22:00* Test Item Value Reference Range Interpretation Comments Platelet Estimate (test code = 38657-0) ADEQUATE [facility] AustinPlatelet Morphology Vwynbzp7982-04-49 19:22:00* Test Item Value Reference Range Interpretation Comments Platelet Morphology Comment (test code = 09061-0) NORMAL [facility] AustinRed Cell Morphology Jxvlxli2325-37-59 19:22:00* Test Item Value Reference Range Interpretation Comments Red Cell Morphology Comment (test code = 6742-1) NORMAL [facility] AustinDifferential Total Cells Counted 2018-07-23 19:22:00* Test Item Value Reference Range Interpretation Comments Differential Total Cells Counted (test code = Dilip tial Total Cells Counted) 100 [facility] AustinNeutrophils % (Manual)2018-07-23 19:22:00 * Test Item Value Reference Range Interpretation Comments Neutrophils % (Manual) (test code = 84749-9) 79 40-74 H [facility] AustinLymphocytes % (Manual)2018-07-23 19:22:00 * Test Item Value Reference Range Interpretation Comments Lymphocytes % (Manual) (test code = 737-7) 11 19-48 L [facility] AustinMonocytes % (Manual)2018-07-23 19:22:00* Test Item Value Reference Range Interpretation Comments Monocytes % (Manual) (test code = 744-3) 10 3.4-9.0 H [facility] AustinPlatelet Xokwqznm9005-26-05 19:22:00* Test Item Value Reference Range Interpretation Comments Platelet Estimate (test code = 44899-4) ADEQUATE [facility] AustinPlatelet Morphology Imojswz7594-05-23 19:22:00* Test Item Value Reference Range Interpretation Comments Platelet Morphology Comment (test code = 04497-3) NORMAL [facility] AustinRed Cell Morphology Harzycj9981-70-23 19:22:00* Test Item Value Reference Range Interpretation Comments Red Cell Morphology Comment (test code = 6742-1) NORMAL [facility] AustinDifferential Total Cells Counted 2018-07-23 19:22:00* Test Item Value Reference Range Interpretation Comments Differential Total Cells Counted (test code = Differen tial Total Cells Counted) 100 [facility] AustinNeutrophils % (Manual)2018-07-23 19:22:00 * Test Item Value Reference Range Interpretation Comments Neutrophils % (Manual) (test code = 54834-0) 79 40-74 H [facility] AustinLymphocytes % (Manual)2018-07-23 19:22:00 * Test Item Value Reference Range Interpretation Comments Lymphocytes % (Manual) (test code = 737-7) 11 19-48 L [facility] AustinMonocytes % (Manual)2018-07-23 19:22:00* Test Item Value Reference Range Interpretation Comments Monocytes % (Manual) (test code = 744-3) 10 3.4-9.0 H [facility] AustinPlatelet Bazjizwk0857-10-19 19:22:00* Test Item Value Reference Range Interpretation Comments Platelet Estimate (test code = 60696-8) ADEQUATE [facility] AustinPlatelet Morphology Xoidbvt7774-92-69 19:22:00* Test Item Value Reference Range Interpretation Comments Platelet Morphology Comment (test code = 97715-6) NORMAL [facility] AustinRed Cell Morphology Jrxgbko1107-91-19 19:22:00* Test Item Value Reference Range Interpretation Comments Red Cell Morphology Comment (test code = 6742-1) NORMAL [facility] AustinBedside Ecqfsns4517-95-68 08:31:00* Test Item Value Reference Range Interpretation Comments Bedside Glucose (test code = 29878-4) 382 70-120 H Meter ID: [id number] Hermann [facility] Centerodium Level 2018-05-19 06:01:00* Test Item Value Reference Range Interpretation Comments Sodium Level (test code = 2951-2) 135 136-145 L [facility] AustinPotassium Hlebw3427-96-84 06:01:00* Test Item Value Reference Range Interpretation Comments Potassium Level (test code = 2823-3) 3.3 3.5-5.1 L [facility] AustinChloride Phuqf9711-07-23 06:01:00* Test Item Value Reference Range Interpretation Comments Chloride Level (test code = 2075-0) 96 98-107 L [facility] AustinCarbon Dioxide Iprmi6132-44-84 06:01:00* Test Item Value Reference Range Interpretation Comments Carbon Dioxide Level (test code = 2028-9) 29 22-29 [facility] AustinAnion Vtx7920-51-97 06:01:00* Test Item Value Reference Range Interpretation Comments Anion Gap (test code = 38742-5) 13.3 8-16 [facility] AustinBlood Urea [id number] 06:01:00* Test Item Value Reference Range Interpretation Comments Blood Urea Nitrogen (test code = 3094-0) 7 7-26 [facility] AustinCreatinine2018-07-09 06:01:00* Test Item Value Reference Range Interpretation Comments Creatinine (test code = 2160-0) 0.61 0.72-1.25 L [facility] AustinBUN/Creatinine [id number] 06:01:00* Test Item Value Reference Range Interpretation Comments BUN/Creatinine Ratio (test code = 3097-3) 11 6-25 [facility] AustinEstimat Glomerular Filtration Rate 2018-05-19 06:01:00* Test Item Value Reference Range Interpretation Comments Estimat Glomerular Filtration Rate (test code = 71103-1) 60- >60 Ranges were taken from the National Kidney Disease Education Program and the [facility] Foundation literature.Reference ranges:60 or greater: Jbqder36-18 ( for 3 consecutive months): Chronic kidney disease 15 or less: Kidney failure[facility] AustinGlucose Xapmu3156-05-06 06:01:00* Test Item Value Reference Range Interpretation Comments Glucose Level (test code = DAA3873) 204 74-118 H [facility] AustinCalcium [id number] 06:01:00* Test Item Value Reference Range Interpretation Comments Calcium Level (test code = 29971-5) 8.5 8.4-10.2 [facility] AustinTotal Zbqweuhaq9047-91-59 06:01:00* Test Item Value Reference Range Interpretation Comments Total Bilirubin (test code = 1975-2) 1.7 0.2-1.2 H [facility] AustinAspartate Amino Transf (AST/SGOT) 2018-05-19 06:01:00* Test Item Value Reference Range Interpretation Comments Aspartate Amino Transf (AST/SGOT) (test code = Aspartate Amino Transf (AST/SGOT)) 9 5-34 [facility] AustinAlanine Aminotransferase (ALT/SGPT) 2018-05-19 06:01:00* Test Item Value Reference Range Interpretation Comments Alanine Aminotransferase (ALT/SGPT) (test code = 1742-6) 7 0-55 [facility] AustinTotal [id number] 06:01:00* Test Item Value Reference Range Interpretation Comments Total Protein (test code = 2885-2) 5.9 6.5-8.1 L [facility] AustinAlbumin2018-07-09 06:01:00* Test Item Value Reference Range Interpretation Comments Albumin (test code = 1751-7) 3.4 3.5-5.0 L [facility] AustinGlobulin2018-07-09 06:01:00* Test Item Value Reference Range Interpretation Comments Globulin (test code = 13720-1) 2.5 2.3-3.5 [facility] AustinAlbumin/Globulin [id number] 06:01:00 * Test Item Value Reference Range Interpretation Comments Albumin/Globulin Ratio (test code = 1759-0) 1.4 0.8-2.0 [facility] AustinAlkaline Ftahcaexczc0201-75-12 06:01:00* Test Item Value Reference Range Interpretation Comments Alkaline Phosphatase (test code = 6768-6) 69 40-150 [facility] AustinTotal Kbsgwzznu5286-66-20 06:01:00* Test Item Value Reference Range Interpretation Comments Total Bilirubin (test code = 1975-2) 1.7 0.2-1.2 H [facility] AustinAspartate Amino Transf (AST/SGOT) 2018-05-19 06:01:00* Test Item Value Reference Range Interpretation Comments Aspartate Amino Transf (AST/SGOT) (test code = Aspartate Amino Transf (AST/SGOT)) 9 5-34 [facility] AustinAlanine Aminotransferase (ALT/SGPT) 2018-05-19 06:01:00* Test Item Value Reference Range Interpretation Comments Alanine Aminotransferase (ALT/SGPT) (test code = 1742-6) 7 0-55 [facility] AustinTotal Ojzfrlz3939-15-66 06:01:00* Test Item Value Reference Range Interpretation Comments Total Protein (test code = 2885-2) 5.9 6.5-8.1 L [facility] AustinAlbumin2018-07-09 06:01:00* Test Item Value Reference Range Interpretation Comments Albumin (test code = 1751-7) 3.4 3.5-5.0 L [facility] AustinGlobulin2018-07-09 06:01:00* Test Item Value Reference Range Interpretation Comments Globulin (test code = 90893-4) 2.5 2.3-3.5 [facility] AustinAlbumin/Globulin Ljyqa8363-07-30 06:01:00 * Test Item Value Reference Range Interpretation Comments Albumin/Globulin Ratio (test code = 1759-0) 1.4 0.8-2.0 [facility] AustinAlkaline Zspafcqqezs9928-66-44 06:01:00* Test Item Value Reference Range Interpretation Comments Alkaline Phosphatase (test code = 6768-6) 69 40-150 [facility] AustinWhite Blood Uwghy1397-09-06 05:14:00* Test Item Value Reference Range Interpretation Comments White Blood Count (test code = 6690-2) 5.49 4.8-10.8 [facility] AustinRed Blood Zcmwc0266-85-50 05:14:00* Test Item Value Reference Range Interpretation Comments Red Blood Count (test code = 789-8) 4.19 4.3-5.7 L [facility] AustinHemoglobin2018-07-09 05:14:00* Test Item Value Reference Range Interpretation Comments Hemoglobin (test code = 75365-4) 13.1 14.0-18.0 L [facility] AustinHematocrit2018-07-09 05:14:00* Test Item Value Reference Range Interpretation Comments Hematocrit (test code = 4544-3) 34.8 38.2-49.6 L [facility] AustinMean Corpuscular Cxqlko9061-93-55 05:14:00* Test Item Value Reference Range Interpretation Comments Mean Corpuscular Volume (test code = 787-2) 83.1 81-99 [facility] AustinMean Corpuscular Imxfstpirj2890-01-45 05:14:00* Test Item Value Reference Range Interpretation Comments Mean Corpuscular Hemoglobin (test code = 785-6) 31.3 28-32 [facility] AustinMean Corpuscular Hemoglobin Concent 2018-05-19 05:14:00* Test Item Value Reference Range Interpretation Comments Mean Corpuscular Hemoglobin Concent (test code = 786-4) 37.6 31-35 H [facility] AustinRed Cell Distribution Twrgi6460-71-90 05:14:00* Test Item Value Reference Range Interpretation Comments Red Cell Distribution Width (test code = 82156-7) 11.8 11.7 -14.4 [facility] AustinPlatelet Tqxej3277-80-99 05:14:00* Test Item Value Reference Range Interpretation Comments Platelet Count (test code = 777-3) 216 140-360 [facility] AustinNeutrophils (%) (Auto)2018-05-19 05:14:00 * Test Item Value Reference Range Interpretation Comments Neutrophils (%) (Auto) (test code = 20243-0) 63.0 38.7-80.0 [facility] AustinLymphocytes (%) (Auto)2018-05-19 05:14:00 * Test Item Value Reference Range Interpretation Comments Lymphocytes (%) (Auto) (test code = 736-9) 28.8 18.0-39.1 [facility] AustinMonocytes (%) (Auto)2018-05-19 05:14:00* Test Item Value Reference Range Interpretation Comments Monocytes (%) (Auto) (test code = 5905-5) 6.7 4.4-11.3 [facility] AustinEosinophils (%) (Auto)2018-05-19 05:14:00 * Test Item Value Reference Range Interpretation Comments Eosinophils (%) (Auto) (test code = 713-8) 0.9 0.0-6.0 [facility] AustinBasophils (%) (Auto)2018-05-19 05:14:00* Test Item Value Reference Range Interpretation Comments Basophils (%) (Auto) (test code = 706-2) 0.4 0.0-1.0 [facility] AustinIM GRANULOCYTES %2018-05-19 05:14:00* Test Item Value Reference Range Interpretation Comments IM GRANULOCYTES % (test code = IM GRANULOCYTES %) 0.2 0.0- 1.0 [facility] AustinNeutrophils # (Auto)2018-05-19 05:14:00* Test Item Value Reference Range Interpretation Comments Neutrophils # (Auto) (test code = 751-8) 3.5 2.1-6.9 [facility] AustinLymphocytes # (Auto)2018-05-19 05:14:00* Test Item Value Reference Range Interpretation Comments Lymphocytes # (Auto) (test code = 08938-2) 1.6 1.0-3.2 [facility] AustinMonocytes # (Auto)2018-05-19 05:14:00* Test Item Value Reference Range Interpretation Comments Monocytes # (Auto) (test code = 742-7) 0.4 0.2-0.8 [facility] AustinEosinophils # (Auto)2018-05-19 05:14:00* Test Item Value Reference Range Interpretation Comments Eosinophils # (Auto) (test code = 711-2) 0.1 0.0-0.4 [facility] AustinBasophils # (Auto)2018-05-19 05:14:00* Test Item Value Reference Range Interpretation Comments Basophils # (Auto) (test code = 704-7) 0.0 0.0-0.1 [facility] AustinAbsolute Immature Granulocyte (auto 2018-05-19 05:14:00* Test Item Value Reference Range Interpretation Comments Absolute Immature Granulocyte (auto (navya t code = Absolute Immature Granulocyte (auto) 0.01 0-0.1 [facility] AustinMagnesium Qwfcr4388-79-03 05:44:00* Test Item Value Reference Range Interpretation Comments Magnesium Level (test code = 85668-6) 1.9 1.3-2.1 [facility] Pugtrsrbd5428-90-12 05:40:00* Test Item Value Reference Range Interpretation Comments Free Thyroxine (test code = 3024-7) 1.03 0.9-1.8 [facility] AustinThyroid Stimulating Hormone (TSH) 2018-05-18 05:40:00* Test Item Value Reference Range Interpretation Comments Thyroid Stimulating Hormone (TSH) (test code = 32049-7) 0.825 0.350-4.940 [facility] Byyvaizxg2894-98-81 05:40:00* Test Item Value Reference Range Interpretation Comments Free Thyroxine (test code = 3024-7) 1.03 0.9-1.8 [facility] Mbimigfym6199-21-35 05:40:00* Test Item Value Reference Range Interpretation Comments Free Thyroxine (test code = 3024-7) 1.03 0.9-1.8 [facility] Tdkeanacc6257-85-15 05:40:00* Test Item Value Reference Range Interpretation Comments Free Thyroxine (test code = 3024-7) 1.03 0.9-1.8 [facility] AustinHemoglobin A1c Augrnwx3152-50-49 05:09:00 * Test Item Value Reference Range Interpretation Comments Hemoglobin A1c Percent (test code = Hemoglobin A1c Percent) 9.2 4.0-7.0 H [facility]anoBLOOD DGIUHLE1813-74-28 06:00:00* Test Item Value Reference Range Interpretation Comments CULTURE (BEAKER) (test code = 1095) No growth in 5 days BLOOD PPZVFDR7735-08-09 06:00:00* Test Item Value Reference Range Interpretation Comments CULTURE (BEAKER) (test code = 1095) No growth in 5 days POCT-GLUCOSE [id number] 14:23:00* Test Item Value Reference Range Interpretation Comments POC-GLUCOSE METER (BEAKER) (test code = 1538) 205 mg/dL 70-110 H TESTED AT [address] [address] POCT-GLUCOSE [id number] 11:35:00* Test Item Value Reference Range Interpretation Comments POC-GLUCOSE METER (BEAKER) (test code = 1538) 251 mg/dL 70-110 H TESTED AT [address] [address] POCT-GLUCOSE [id number] 07:52:00* Test Item Value Reference Range Interpretation Comments POC-GLUCOSE METER (BEAKER) (test code = 1538) 174 mg/dL 70-110 H TESTED AT [address] [address] POCT-GLUCOSE [id number] 07:19:00* Test Item Value Reference Range Interpretation Comments POC-GLUCOSE METER (BEAKER) (test code = 1538) 140 mg/dL 70-110 H TESTED AT [address] [address] BASIC METABOLIC [id number] 05:59:00* Test Item Value Reference Range Interpretation [...] 413) 0 /100 WBC 0 -0 POCT-GLUCOSE [id number] 01:33:00* Test Item Value Reference Range Interpretation Comments POC-GLUCOSE METER (BEAKER) (test code = 1538) 149 mg/dL 70-[address] [facility] [address] [facility] [address] POCT-GLUCOSE [id number] 16:30:00* Test Item Value Reference Range Interpretation Comments POC-GLUCOSE METER (BEAKER) (test code = 1538) 83 mg/dL 70-[address] [facility] [address] [facility] [address] RESPIRATORY PANEL [id number] 13:31:00* Test Item Value Reference Range Interpretation [...] Not detect ed Not detected, Inconclusive POCT-GLUCOSE [id number] 11:48:00* Test Item Value Reference Range Interpretation Comments POC-GLUCOSE METER (BEAKER) (test code = 1538) 213 mg/dL 70-[address] [facility] [address] [facility] [address] URINE [id number] 11:31:00* Test Item Value Reference Range Interpretation Comments CULTURE (BEAKER) (test code = 1095) No growth CBC W/PLT COUNT & AUTO MEOTOTCPIEJB2156-05-91 09:45:00* Test Item Value Reference Range Interpretation [...] % 0-1 RAD, CHEST, 1 VIEW, NON [id number] 09:41:00Reason for exam:->assess for acute processShould this be performed at the bedside?->YesFINAL REPORT INDICATION: assess for acute process COMPARISON: None. TECHNIQUE: Chest radiograph, single view, portable technique. FINDINGS / IMPRESSION: There is no evidence of pneumonia or pulmonary edema. Cardiac and mediastinal contours are unremarkable. No pleural effusion or pneumothorax is demonstrated. Osseous structures are unremarkable. Signed: Er[facility]o [facility] Verified Date/Time: 03/10/2018 09:41:23 Reading Location: [facility] Radiology Reading Room -GLUCOSE [id number] 08:15:00* Test Item Value Reference Range Interpretation Comments POC-GLUCOSE METER (BEAKER) (test code = 1538) 165 mg/dL 70-[address] [facility] [address] [facility] [address] [id number] 05:18:00* Test Item Value Reference Range Interpretation Comments MAGNESIUM (BEAKER) (test code = 627) 1.9 mg/dL 1.6-2.6 KDVEOPIUVU8390-65-33 05:18:00* Test Item Value Reference Range Interpretation Comments PHOSPHORUS (BEAKER) (test code = 604) 2.4 mg/dL 2.3-4.7 BASIC METABOLIC [id number] 05:18:00* Test Item Value Reference Range Interpretation [...] IS NOT APPLICABLE FOR DIALYSIS PATIENTS. POCT-GLUCOSE [id number] 04:43:00* Test Item Value Reference Range Interpretation Comments POC-GLUCOSE METER (BEAKER) (test code = 1538) 195 mg/dL 70-110 H TESTED AT [address] [address] POCT-GLUCOSE [id number] 00:40:00* Test Item Value Reference Range Interpretation Comments POC-GLUCOSE METER (BEAKER) (test code = 1538) 196 mg/dL 70-110 H TESTED AT [address] [address] BASIC METABOLIC [id number] 20:41:00* Test Item Value Reference Range Interpretation [...] GFR IS NOT APPLICABLE FOR DIALYSIS PATIENTS. [id number] 20:39:00* Test Item Value Reference Range Interpretation Comments PHOSPHORUS (BEAKER) (test code = 604) 2.0 mg/dL 2.3-4.7 L Specimen slightly hemolyzed POCT-GLUCOSE [id number] 20:26:00* Test Item Value Reference Range Interpretation Comments POC-GLUCOSE METER (BEAKER) (test code = 1538) 207 mg/dL 70-[address] [facility] [address] [facility] [address] POCT-GLUCOSE [id number] 18:06:00* Test Item Value Reference Range Interpretation Comments POC-GLUCOSE METER (BEAKER) (test code = 1538) 202 mg/dL 70-[address] [facility] [address] [facility] [address] BASIC METABOLIC [id number] 17:12:00* Test Item Value Reference Range Interpretation [...] GFR IS NOT APPLICABLE FOR DIALYSIS PATIENTS. [id number] 17:10:00* Test Item Value Reference Range Interpretation Comments PHOSPHORUS (BEAKER) (test code = 604) 1.7 mg/dL 2.3-4.7 L Specimen slightly hemolyzed POCT-GLUCOSE [id number] 17:07:00* Test Item Value Reference Range Interpretation Comments POC-GLUCOSE METER (BEAKER) (test code = 1538) 211 mg/dL 70-[address] [facility] [address] [facility] [address] POCT-GLUCOSE [id number] 15:39:00* Test Item Value Reference Range Interpretation Comments POC-GLUCOSE METER (BEAKER) (test code = 1538) 244 mg/dL 70-110 H TESTED AT [place] [id number] [facility] [address] POCT-GLUCOSE [id number] 13:45:00* Test Item Value Reference Range Interpretation Comments POC-GLUCOSE METER (BEAKER) (test code = 1538) 239 mg/dL 70-110 H TESTED AT [address] [address] [id number] 13:44:00* Test Item Value Reference Range Interpretation Comments PHOSPHORUS (BEAKER) (test code = 604) 2.2 mg/dL 2.3-4.7 L BASIC METABOLIC [id number] 13:16:00* Test Item Value Reference Range Interpretation [...] IS NOT APPLICABLE FOR DIALYSIS PATIENTS. POCT-GLUCOSE [id number] 12:01:00* Test Item Value Reference Range Interpretation Comments POC-GLUCOSE METER (BEAKER) (test code = 1538) 255 mg/dL 70-[address] [facility] [address] [facility] [address] HEMOGLOBIN [id number] 11:41:00* Test Item Value Reference Range Interpretation Comments HEMOGLOBIN A1C (BEAKER) (test code = 368) 11.3 % 4.3-6.1 H POCT-GLUCOSE [id number] 10:53:00* Test Item Value Reference Range Interpretation Comments POC-GLUCOSE METER (BEAKER) (test code = 1538) 240 mg/dL 70-[address] [facility] [address] [facility] [address] [id number] 09:39:00* Test Item Value Reference Range Interpretation Comments PROCALCITONIN (BEAKER) (test code = 3036) < ng/mL <0.05 SEPSIS RISK (ng/mL)Low: 0.05-0.50Intermediate: 0.51-2.00High: > =2.01BASIC METABOLIC [id number] 08:57:00* Test Item Value Reference Range Interpretation [...] do bedside glucose instead of serum gluco se.[id number] 08:51:00* Test Item Value Reference Range Interpretation Comments PHOSPHORUS (BEAKER) (test code = 604) 2.1 mg/dL 2.3-4.7 L Specimen slightly hemolyzed If last glucose was less than 500, may do bedside glucose instead of serum gluco se.[id number] 08:51:00* Test Item Value Reference Range Interpretation Comments GLUCOSE RANDOM (BEAKER) (test code = 652) 145 mg/dL 70-105 H If last glucose was less than 500, may do bedside glucose instead of serum gluco se.POCT-GLUCOSE [id number] 08:39:00* Test Item Value Reference Range Interpretation Comments POC-GLUCOSE METER (BEAKER) (test code = 1538) 135 mg/dL 70-[address] [facility] [address] [facility] [address] [id number] 08:16:00* Test Item Value Reference Range Interpretation Comments PHOSPHORUS (BEAKER) (test code = 604) 1.5 mg/dL 2.3-4.7 LL Specimen slightly hemolyzed BASIC METABOLIC [id number] 08:14:00* Test Item Value Reference Range Interpretation [...] NOT APPLICABLE FOR DIALYSIS PATIENTS. BASIC METABOLIC [id number] 08:06:00* Test Item Value Reference Range Interpretation [...] NOT APPLICABLE FOR DIALYSIS PATIENTS. URINALYSIS W/ [id number] 07:41:00* Test Item Value Reference Range Interpretation [...] 4 /LPF SOURCE(BEAKER) (test code = 2795) [id number] 07:32:00* Test Item Value Reference Range Interpretation Comments POTASSIUM (BEAKER) (test code = 379) 3.9 meq/L 3.5-5.1 Specimen moderately hemolyzed POCT-GLUCOSE [id number] 07:21:00* Test Item Value Reference Range Interpretation Comments POC-GLUCOSE METER (BEAKER) (test code = 1538) 103 mg/dL 70-110 TESTED AT [address] [address] POCT-GLUCOSE [id number] 06:48:00* Test Item Value Reference Range Interpretation Comments POC-GLUCOSE METER (BEAKER) (test code = 1538) 155 mg/dL 70-110 H TESTED AT [address] [address] T4, [id number] 06:37:00* Test Item Value Reference Range Interpretation Comments FREE T4 (BEAKER) (test code = 655) 1.22 ng/dL 0.70-1.48 TSH/FREE T4 IF [id number] 05:40:00* Test Item Value Reference Range Interpretation Comments THYROID STIMULATING HORMONE (BEAKER) (test code = 772) 0.25 uIU/mL 0.35-4.94 L POCT-GLUCOSE [id number] 05:12:00* Test Item Value Reference Range Interpretation Comments POC-GLUCOSE METER (BEAKER) (test code = 1538) 171 mg/dL 70-110 H TESTED AT [place] [id number] [facility] [address] POCT-GLUCOSE [id number] 04:11:00* Test Item Value Reference Range Interpretation Comments POC-GLUCOSE METER (BEAKER) (test code = 1538) 204 mg/dL 70-110 H TESTED AT [address] [address] BLOOD GAS, [id number] 04:07:00* Test Item Value Reference Range Interpretation [...] (test code = 1819) 21.0 % POCT-GLUCOSE [id number] 03:09:00* Test Item Value Reference Range Interpretation Comments POC-GLUCOSE METER (BEAKER) (test code = 1538) 239 mg/dL 70-[address] [facility] [address] [facility] [address] LACTIC ACID, VENOUS, WHOLE [id number] 03:07:00* Test Item Value Reference Range Interpretation Comments LACTATE BLOOD VENOUS (2) (BEAKER) (test code = 2872) 1.7 mmol/L 0 .5-2.2 Specimen slightly hemolyzed Effective 03/14/2016: Units/Reference Range ChangeNew: 0.5-2.2 mmol/L Previous: 5 -20 mg/dLCBC W/PLT COUNT & AUTO [id number] 03:06:00* Test Item Value Reference Range Interpretation [...] code = 2801) 1 % 0-1 TROPONIN [id number] 03:05:00* Test Item Value Reference Range Interpretation [...] do bedside glucos e instead of serum glucose.[id number] 03:02:00* Test Item Value Reference Range Interpretation Comments LIPASE (BEAKER) (test code = 749) < U/L 8-78 L If last glucose was less than 500, may do bedside glucose instead of serum gluco se.[id number] 02:59:00* Test Item Value Reference Range Interpretation Comments POTASSIUM (BEAKER) (test code = 379) 4.8 meq/L 3.5-5.1 If last glucose was less than 500, may do bedside glucose instead of serum gluco se.[id number] 02:59:00* Test Item Value Reference Range Interpretation Comments MAGNESIUM (BEAKER) (test code = 627) 2.1 mg/dL 1.6-2.6 If last glucose was less than 500, may do bedside glucose instead of serum gluco se.[id number] 02:59:00* Test Item Value Reference Range Interpretation Comments PHOSPHORUS (BEAKER) (test code = 604) 2.9 mg/dL 2.3-4.7 If last glucose was less than 500, may do bedside glucose instead of serum gluco se.HEPATIC FUNCTION [id number] 02:59:00* Test Item Value Reference Range Interpretation [...] do bedside glucose instead of serum gluco se.[id number] 02:59:00* Test Item Value Reference Range Interpretation Comments GLUCOSE RANDOM (BEAKER) (test code = 652) 307 mg/dL 70-105 H If last glucose was less than 500, may do bedside glucose instead of serum gluco se.BASIC METABOLIC [id number] 02:59:00* Test Item Value Reference Range Interpretation [...] bedside glucose instead of serum gluco se.KETONE, [id number] 02:56:00* Test Item Value Reference Range Interpretation Comments KETONES, BLOOD (BEAKER) (test code = 1103) 4.8 mmol/L <0.4 H POCT-GLUCOSE [id number] 01:25:00* Test Item Value Reference Range Interpretation Comments POC-GLUCOSE METER (BEAKER) (test code = 1538) 276 mg/dL 70-[address] [facility] [address] [facility] [address] Lactic Acid [id number] 21:28:00* Test Item Value Reference Range Interpretation Comments Lactic Acid Level (test code = Lactic Acid Level) 44.6 4.5- 19.8 H [facility] AustinLactic Acid [id number] 21:28:00* Test Item Value Reference Range Interpretation Comments Lactic Acid Level (test code = Lactic Acid Level) 44.6 4.5- 19.8 H [facility] AustinLactic Acid [id number] 21:28:00* Test Item Value Reference Range Interpretation Comments Lactic Acid Level (test code = Lactic Acid Level) 44.6 4.5- 19.8 H [facility] AustinLactic Acid [id number] 21:28:00* Test Item Value Reference Range Interpretation Comments Lactic Acid Level (test code = Lactic Acid Level) 44.6 4.5- 19.8 H [facility] [id number] 16:13:00* Test Item Value Reference Range Interpretation Comments Bedside Glucose (test code = 48506-6) 77 70-120 Meter ID: [id number] [facility] Glucose 2018-01-29 16:13:00* Test Item Value Reference Range Interpretation Comments Bedside Glucose (test code = 20022-0) 77 70-120 Meter ID: [id number] [facility] Glucose 2018-01-29 11:49:00* Test Item Value Reference Range Interpretation Comments Bedside Glucose (test code = 99933-7) 108 70-120 Meter ID: [id number] [facility] Centerodium Level 2018-01-29 07:03:00* Test Item Value Reference Range Interpretation Comments Sodium Level (test code = 2951-2) 135 136-145 L [facility] AustinPotassium Rmzwf1965-09-23 07:03:00* Test Item Value Reference Range Interpretation Comments Potassium Level (test code = 2823-3) 3.2 3.5-5.1 L [facility] AustinChloride [id number] 07:03:00* Test Item Value Reference Range Interpretation Comments Chloride Level (test code = 2075-0) 99 98-107 [facility] AustinCarbon Dioxide Jzicq0348-99-54 07:03:00* Test Item Value Reference Range Interpretation Comments Carbon Dioxide Level (test code = 2028-9) 28 22-29 [facility] AustinAnion Zlp8579-53-63 07:03:00* Test Item Value Reference Range Interpretation Comments Anion Gap (test code = 09346-8) 11.2 8-16 [facility] AustinBlood Urea Fchitohs0302-70-63 07:03:00* Test Item Value Reference Range Interpretation Comments Blood Urea Nitrogen (test code = 3094-0) 7 7-26 [facility] AustinCreatinine2018-03-21 07:03:00* Test Item Value Reference Range Interpretation Comments Creatinine (test code = 2160-0) 0.58 0.72-1.25 L [facility] AustinBUN/Creatinine Sffsa4983-73-39 07:03:00* Test Item Value Reference Range Interpretation Comments BUN/Creatinine Ratio (test code = 3097-3) 12 05-05 [facility] AustinEstimat Glomerular Filtration Rate 2018-01-29 07:03:00* Test Item Value Reference Range Interpretation Comments Estimat Glomerular Filtration Rate (test code = 76951-3) 60- >60 Ranges were taken from the National Kidney Disease Education Program and the [facility] literature.Reference ranges:60 or greater: Grkvas25-13 ( for 3 consecutive months): Chronic kidney disease 15 or less: Kid[facility] failureAsc[facility] AustinGlucose Aamid4696-50-64 07:03:00* Test Item Value Reference Range Interpretation Comments Glucose Level (test code = THQ3979) 184 74-118 H [facility] AustinCalcium Lpued3005-96-53 07:03:00* Test Item Value Reference Range Interpretation Comments Calcium Level (test code = 93196-0) 8.4 8.4-10.2 [facility] Rxlxk5163-53-93 07:03:00* Test Item Value Reference Range Interpretation Comments Sodium Level (test code = 2951-2) 135 136-145 L [facility] AustinPotassium Ypcmw1604-08-82 07:03:00* Test Item Value Reference Range Interpretation Comments Potassium Level (test code = 2823-3) 3.2 3.5-5.1 L [facility] AustinChloride Btbhs1339-04-40 07:03:00* Test Item Value Reference Range Interpretation Comments Chloride Level (test code = 2075-0) 99 98-107 [facility] AustinCarbon Dioxide Fxygs5983-72-23 07:03:00* Test Item Value Reference Range Interpretation Comments Carbon Dioxide Level (test code = 2028-9) 28 22-29 [facility] AustinAnion Ies8171-02-66 07:03:00* Test Item Value Reference Range Interpretation Comments Anion Gap (test code = 28387-6) 11.2 8-16 [facility] AustinBlood Urea Jvrexpqe9139-56-31 07:03:00* Test Item Value Reference Range Interpretation Comments Blood Urea Nitrogen (test code = 3094-0) 7 7-26 [facility] AustinCreatinine2018-03-21 07:03:00* Test Item Value Reference Range Interpretation Comments Creatinine (test code = 2160-0) 0.58 0.72-1.25 L [facility] AustinBUN/Creatinine Ihbjg7711-56-39 07:03:00* Test Item Value Reference Range Interpretation Comments BUN/Creatinine Ratio (test code = 3097-3) 12 6- [facility] AustinEstimat Glomerular Filtration Rate 2018-01-29 07:03:00* Test Item Value Reference Range Interpretation Comments Estimat Glomerular Filtration Rate (test code = 89243-7) 60- >60 Ranges were taken from the National Kidney Disease Education Program and the [facility] Foundation literature.Reference ranges:60 or greater: Akvann08-31 ( for 3 consecutive months): Chronic kidney disease 15 or less: Kidney failureAsc[facility] AustinGlucose Rbqzu4560-96-00 07:03:00* Test Item Value Reference Range Interpretation Comments Glucose Level (test code = UWX3472) 184 74-118 H [facility] AustinCalcium Bdcnr2124-36-39 07:03:00* Test Item Value Reference Range Interpretation Comments Calcium Level (test code = 37690-1) 8.4 8.4-10.2 [facility] Centerodium Gmpmf4188-82-81 07:03:00* Test Item Value Reference Range Interpretation Comments Sodium Level (test code = 2951-2) 135 136-145 L [facility] AustinPotassium Wzsgl2113-55-53 07:03:00* Test Item Value Reference Range Interpretation Comments Potassium Level (test code = 2823-3) 3.2 3.5-5.1 L [facility] AustinChloride Zdfow2567-74-38 07:03:00* Test Item Value Reference Range Interpretation Comments Chloride Level (test code = 2075-0) 99 98-107 [facility] AustinCarbon Dioxide Cjbin3186-48-60 07:03:00* Test Item Value Reference Range Interpretation Comments Carbon Dioxide Level (test code = 2028-9) 28 22-29 [facility] AustinAnion Gsp9264-00-69 07:03:00* Test Item Value Reference Range Interpretation Comments Anion Gap (test code = 46057-7) 11.2 8-16 [facility] AustinBlood Urea Kjnjkwwl7168-45-25 07:03:00* Test Item Value Reference Range Interpretation Comments Blood Urea Nitrogen (test code = 3094-0) 7 7-26 [facility] AustinCreatinine2018-03-21 07:03:00* Test Item Value Reference Range Interpretation Comments Creatinine (test code = 2160-0) 0.58 0.72-1.25 L [facility] AustinBUN/Creatinine Qhjes5542-21-55 07:03:00* Test Item Value Reference Range Interpretation Comments BUN/Creatinine Ratio (test code = 3097-3) 12 6-25 [facility] AustinEstimat Glomerular Filtration Rate 2018-01-29 07:03:00* Test Item Value Reference Range Interpretation Comments Estimat Glomerular Filtration Rate (test code = 18472-2) 60- >60 Ranges were taken from the National Kidney Disease Education Program and the [facility] Foundation literature.Reference ranges:60 or greater: Pgcbhn64-79 ( for 3 consecutive months): Chronic kidney disease 15 or less: Kidney failureAsc[facility] AustinGlucose Thtdv5962-00-04 07:03:00* Test Item Value Reference Range Interpretation Comments Glucose Level (test code = LVF6291) 184 74-118 H [facility] AustinCalcium Yqrff1609-42-05 07:03:00* Test Item Value Reference Range Interpretation Comments Calcium Level (test code = 94295-6) 8.4 8.4-10.2 [facility] Nuihzagxc9756-28-32 06:52:00* Test Item Value Reference Range Interpretation Comments Total Bilirubin (test code = 1974-2) 1.8 0.2-1.2 H [facility] AustinAspartate Amino Transf (AST/SGOT) 2018-01-28 06:52:00* Test Item Value Reference Range Interpretation Comments Aspartate Amino Transf (AST/SGOT) (test code = Aspartate Amino Transf (AST/SGOT)) 12 5-34 [facility] AustinAlanine Aminotransferase (ALT/SGPT) 2018-01-28 06:52:00* Test Item Value Reference Range Interpretation Comments Alanine Aminotransferase (ALT/SGPT) (test code = 1742-6) 8 0-55 [facility] Ssnunez0119-78-34 06:52:00* Test Item Value Reference Range Interpretation Comments Total Protein (test code = 2885-2) 5.9 6.5-8.1 L [facility] AustinAlbumin2018-03-20 06:52:00* Test Item Value Reference Range Interpretation Comments Albumin (test code = 1751-7) 3.2 3.5-5.0 L [facility] AustinGlobulin2018-03-20 06:52:00* Test Item Value Reference Range Interpretation Comments Globulin (test code = 90648-7) 2.7 2.3-3.5 [facility] AustinAlbumin/Globulin Pjutu3339-26-91 06:52:00 * Test Item Value Reference Range Interpretation Comments Albumin/Globulin Ratio (test code = 1759-0) 1.2 0.8-2.0 [facility] AustinAlkaline Neshaluojqo1651-70-48 06:52:00* Test Item Value Reference Range Interpretation Comments Alkaline Phosphatase (test code = 6768-6) 94 40-150 [facility] AustinTotal Kzlfcxzgh5699-99-40 06:52:00* Test Item Value Reference Range Interpretation Comments Total Bilirubin (test code = 1974-2) 1.8 0.2-1.2 H [facility] AustinAspartate Amino Transf (AST/SGOT) 2018-01-28 06:52:00* Test Item Value Reference Range Interpretation Comments Aspartate Amino Transf (AST/SGOT) (test code = Aspartate Amino Transf (AST/SGOT)) [facility] AustinAlanine Aminotransferase (ALT/SGPT) 2018-01-28 06:52:00* Test Item Value Reference Range Interpretation Comments Alanine Aminotransferase (ALT/SGPT) (test code = 1742-6) 8 0-55 [facility] AustinTotal Qrclenp5349-19-62 06:52:00* Test Item Value Reference Range Interpretation Comments Total Protein (test code = 2885-2) 5.9 6.5-8.1 L [facility] AustinAlbumin2018-03-20 06:52:00* Test Item Value Reference Range Interpretation Comments Albumin (test code = 1751-7) 3.2 3.5-5.0 L [facility] AustinGlobulin2018-03-20 06:52:00* Test Item Value Reference Range Interpretation Comments Globulin (test code = 14668-0) 2.7 2.3-3.5 [facility] AustinAlbumin/Globulin Knhky9558-25-36 06:52:00 * Test Item Value Reference Range Interpretation Comments Albumin/Globulin Ratio (test code = 1759-0) 1.2 0.8-2.0 [facility] AustinAlkaline Vnmlutiblmz2990-56-18 06:52:00* Test Item Value Reference Range Interpretation Comments Alkaline Phosphatase (test code = 6768-6) 94 40-150 [facility] AustinTotal Rgqwfporw3379-23-17 06:52:00* Test Item Value Reference Range Interpretation Comments Total Bilirubin (test code = 1975-2) 1.8 0.2-1.2 H [facility] AustinAspartate Amino Transf (AST/SGOT) 2018-01-28 06:52:00* Test Item Value Reference Range Interpretation Comments Aspartate Amino Transf (AST/SGOT) (test code = Aspartate Amino Transf (AST/SGOT)) [facility] AustinAlanine Aminotransferase (ALT/SGPT) 2018-01-28 06:52:00* Test Item Value Reference Range Interpretation Comments Alanine Aminotransferase (ALT/SGPT) (test code = 1742-6) 8 0-55 [facility] AustinTotal Kgbutnz6343-95-58 06:52:00* Test Item Value Reference Range Interpretation Comments Total Protein (test code = 2885-2) 5.9 6.5-8.1 L [facility] AustinAlbumin2018-03-20 06:52:00* Test Item Value Reference Range Interpretation Comments Albumin (test code = 1751-7) 3.2 3.5-5.0 L [facility] AustinGlobulin2018-03-20 06:52:00* Test Item Value Reference Range Interpretation Comments Globulin (test code = 44855-5) 2.7 2.3-3.5 [facility] AustinAlbumin/Globulin Uncmu7953-06-65 06:52:00 * Test Item Value Reference Range Interpretation Comments Albumin/Globulin Ratio (test code = 1759-0) 1.2 0.8-2.0 [facility] AustinAlkaline Esburytswlc1517-14-86 06:52:00* Test Item Value Reference Range Interpretation Comments Alkaline Phosphatase (test code = 6768-6) 94 40-150 [facility] AustinWhite Blood Wctdc4909-84-22 06:18:00* Test Item Value Reference Range Interpretation Comments White Blood Count (test code = 6690-2) 6.43 4.8-10.8 [facility] AustinRed Blood Yojfs2353-42-20 06:18:00* Test Item Value Reference Range Interpretation Comments Red Blood Count (test code = 789-8) 4.86 4.3-5.7 [facility] AustinHemoglobin2018-03-20 06:18:00* Test Item Value Reference Range Interpretation Comments Hemoglobin (test code = 59346-8) 15.3 14.0-18.0 [facility] AustinHematocrit2018-03-20 06:18:00* Test Item Value Reference Range Interpretation Comments Hematocrit (test code = 4544-3) 41.2 38.2-49.6 [facility] AustinMean Corpuscular Ukgmxe6166-22-72 06:18:00* Test Item Value Reference Range Interpretation Comments Mean Corpuscular Volume (test code = 787-2) 84.8 81-99 [facility] AustinMean Corpuscular Zipnwkbffb5469-57-59 06:18:00* Test Item Value Reference Range Interpretation Comments Mean Corpuscular Hemoglobin (test code = 785-6) 31.5 28-32 [facility] AustinMean Corpuscular Hemoglobin Concent 2018-01-28 06:18:00* Test Item Value Reference Range Interpretation Comments Mean Corpuscular Hemoglobin Concent (test code = 786-4) 37.1 31-35 H [facility] AustinRed Cell Distribution Oohem2940-39-34 06:18:00* Test Item Value Reference Range Interpretation Comments Red Cell Distribution Width (test code = 25782-3) 10.8 11.7 -14.4 L [facility] AustinPlatelet Npgjd1550-66-26 06:18:00* Test Item Value Reference Range Interpretation Comments Platelet Count (test code = 777-3) 197 140-360 [facility] AustinNeutrophils (%) (Auto)2018-01-28 06:18:00 * Test Item Value Reference Range Interpretation Comments Neutrophils (%) (Auto) (test code = 67367-9) 58.3 38.7-80.0 [facility] AustinLymphocytes (%) (Auto)2018-01-28 06:18:00 * Test Item Value Reference Range Interpretation Comments Lymphocytes (%) (Auto) (test code = 736-9) 31.9 18.0-39.1 [facility] AustinMonocytes (%) (Auto)2018-01-28 06:18:00* Test Item Value Reference Range Interpretation Comments Monocytes (%) (Auto) (test code = 5905-5) 8.1 4.4-11.3 [facility] AustinEosinophils (%) (Auto)2018-01-28 06:18:00 * Test Item Value Reference Range Interpretation Comments Eosinophils (%) (Auto) (test code = 713-8) 1.1 0.0-6.0 [facility] AustinBasophils (%) (Auto)2018-01-28 06:18:00* Test Item Value Reference Range Interpretation Comments Basophils (%) (Auto) (test code = 706-2) 0.3 0.0-1.0 [facility] AustinIM GRANULOCYTES %2018-01-28 06:18:00* Test Item Value Reference Range Interpretation Comments IM GRANULOCYTES % (test code = IM GRANULOCYTES %) 0.3 0.0- 1.0 [facility] AustinNeutrophils # (Auto)2018-01-28 06:18:00* Test Item Value Reference Range Interpretation Comments Neutrophils # (Auto) (test code = 751-8) 3.8 2.1-6.9 [facility] AustinLymphocytes # (Auto)2018-01-28 06:18:00* Test Item Value Reference Range Interpretation Comments Lymphocytes # (Auto) (test code = 14167-5) 2.1 1.0-3.2 [facility] AustinMonocytes # (Auto)2018-01-28 06:18:00* Test Item Value Reference Range Interpretation Comments Monocytes # (Auto) (test code = 742-7) 0.5 0.2-0.8 [facility] AustinEosinophils # (Auto)2018-01-28 06:18:00* Test Item Value Reference Range Interpretation Comments Eosinophils # (Auto) (test code = 711-2) 0.1 0.0-0.4 [facility] AustinBasophils # (Auto)2018-01-28 06:18:00* Test Item Value Reference Range Interpretation Comments Basophils # (Auto) (test code = 704-7) 0.0 0.0-0.1 [facility] AustinAbsolute Immature Granulocyte (auto 2018-01-28 06:18:00* Test Item Value Reference Range Interpretation Comments Absolute Immature Granulocyte (auto (navya t code = Absolute Immature Granulocyte (auto) 0.02 0-0.1 [facility] AustinWhite Blood Oeipo0501-44-63 06:18:00* Test Item Value Reference Range Interpretation Comments White Blood Count (test code = 6690-2) 6.43 4.8-10.8 [facility] AustinRed Blood Tnirk0316-89-40 06:18:00* Test Item Value Reference Range Interpretation Comments Red Blood Count (test code = 789-8) 4.86 4.3-5.7 [facility] AustinHemoglobin2018-03-20 06:18:00* Test Item Value Reference Range Interpretation Comments Hemoglobin (test code = 93176-8) 15.3 14.0-18.0 [facility] AustinHematocrit2018-03-20 06:18:00* Test Item Value Reference Range Interpretation Comments Hematocrit (test code = 4544-3) 41.2 38.2-49.6 [facility] AustinMean Corpuscular Rwrtdv9470-03-37 06:18:00* Test Item Value Reference Range Interpretation Comments Mean Corpuscular Volume (test code = 787-2) 84.8 81-99 [facility] AustinMean Corpuscular Jzbosizllz3146-89-12 06:18:00* Test Item Value Reference Range Interpretation Comments Mean Corpuscular Hemoglobin (test code = 785-6) 31.5 28-32 [facility] AustinMean Corpuscular Hemoglobin Concent 2018-01-28 06:18:00* Test Item Value Reference Range Interpretation Comments Mean Corpuscular Hemoglobin Concent (test code = 786-4) 37.1 31-35 H [facility] AustinRed Cell Distribution Heimu2021-59-29 06:18:00* Test Item Value Reference Range Interpretation Comments Red Cell Distribution Width (test code = 39780-0) 10.8 11.7 -14.4 L [facility] AustinPlatelet Jrhgx3655-30-49 06:18:00* Test Item Value Reference Range Interpretation Comments Platelet Count (test code = 777-3) 197 140-360 [facility] AustinNeutrophils (%) (Auto)2018-01-28 06:18:00 * Test Item Value Reference Range Interpretation Comments Neutrophils (%) (Auto) (test code = 49624-7) 58.3 38.7-80.0 [facility] AustinLymphocytes (%) (Auto)2018-01-28 06:18:00 * Test Item Value Reference Range Interpretation Comments Lymphocytes (%) (Auto) (test code = 736-9) 31.9 18.0-39.1 [facility] AustinMonocytes (%) (Auto)2018-01-28 06:18:00* Test Item Value Reference Range Interpretation Comments Monocytes (%) (Auto) (test code = 5905-5) 8.1 4.4-11.3 [facility] AustinEosinophils (%) (Auto)2018-01-28 06:18:00 * Test Item Value Reference Range Interpretation Comments Eosinophils (%) (Auto) (test code = 713-8) 1.1 0.0-6.0 [facility] AustinBasophils (%) (Auto)2018-01-28 06:18:00* Test Item Value Reference Range Interpretation Comments Basophils (%) (Auto) (test code = 706-2) 0.3 0.0-1.0 [facility] AustinIM GRANULOCYTES %2018-01-28 06:18:00* Test Item Value Reference Range Interpretation Comments IM GRANULOCYTES % (test code = IM GRANULOCYTES %) 0.3 0.0- 1.0 [facility] AustinNeutrophils # (Auto)2018-01-28 06:18:00* Test Item Value Reference Range Interpretation Comments Neutrophils # (Auto) (test code = 751-8) 3.8 2.1-6.9 [facility] AustinLymphocytes # (Auto)2018-01-28 06:18:00* Test Item Value Reference Range Interpretation Comments Lymphocytes # (Auto) (test code = 26602-6) 2.1 1.0-3.2 [facility] AustinMonocytes # (Auto)2018-01-28 06:18:00* Test Item Value Reference Range Interpretation Comments Monocytes # (Auto) (test code = 742-7) 0.5 0.2-0.8 [facility] AustinEosinophils # (Auto)2018-01-28 06:18:00* Test Item Value Reference Range Interpretation Comments Eosinophils # (Auto) (test code = 711-2) 0.1 0.0-0.4 [facility] AustinBasophils # (Auto)2018-01-28 06:18:00* Test Item Value Reference Range Interpretation Comments Basophils # (Auto) (test code = 704-7) 0.0 0.0-0.1 [facility] AustinAbsolute Immature Granulocyte (auto 2018-01-28 06:18:00* Test Item Value Reference Range Interpretation Comments Absolute Immature Granulocyte (auto (navya t code = Absolute Immature Granulocyte (auto) 0.02 0-0.1 [facility] AustinWhite Blood Qlwrw7845-85-07 06:18:00* Test Item Value Reference Range Interpretation Comments White Blood Count (test code = 6690-2) 6.43 4.8-10.8 [facility] AustinRed Blood Mmmkx1309-68-27 06:18:00* Test Item Value Reference Range Interpretation Comments Red Blood Count (test code = 789-8) 4.86 4.3-5.7 [facility] AustinHemoglobin2018-03-20 06:18:00* Test Item Value Reference Range Interpretation Comments Hemoglobin (test code = 03258-7) 15.3 14.0-18.0 [facility] AustinHematocrit2018-03-20 06:18:00* Test Item Value Reference Range Interpretation Comments Hematocrit (test code = 4544-3) 41.2 38.2-49.6 [facility] AustinMean Corpuscular Mvnxhb1814-04-64 06:18:00* Test Item Value Reference Range Interpretation Comments Mean Corpuscular Volume (test code = 787-2) 84.8 81-99 [facility] AustinMean Corpuscular Izncoiquhq9778-22-44 06:18:00* Test Item Value Reference Range Interpretation Comments Mean Corpuscular Hemoglobin (test code = 785-6) 31.5 28-32 [facility] AustinMean Corpuscular Hemoglobin Concent 2018-01-28 06:18:00* Test Item Value Reference Range Interpretation Comments Mean Corpuscular Hemoglobin Concent (test code = 786-4) 37.1 31-35 H [facility] AustinRed Cell Distribution Mocfo0353-04-07 06:18:00* Test Item Value Reference Range Interpretation Comments Red Cell Distribution Width (test code = 24788-3) 10.8 11.7 -14.4 L [facility] AustinPlatelet Dkcuv6575-27-81 06:18:00* Test Item Value Reference Range Interpretation Comments Platelet Count (test code = 777-3) 197 140-360 [facility] AustinNeutrophils (%) (Auto)2018-01-28 06:18:00 * Test Item Value Reference Range Interpretation Comments Neutrophils (%) (Auto) (test code = 80297-5) 58.3 38.7-80.0 [facility] AustinLymphocytes (%) (Auto)2018-01-28 06:18:00 * Test Item Value Reference Range Interpretation Comments Lymphocytes (%) (Auto) (test code = 736-9) 31.9 18.0-39.1 [facility] AustinMonocytes (%) (Auto)2018-01-28 06:18:00* Test Item Value Reference Range Interpretation Comments Monocytes (%) (Auto) (test code = 5905-5) 8.1 4.4-11.3 [facility] AustinEosinophils (%) (Auto)2018-01-28 06:18:00 * Test Item Value Reference Range Interpretation Comments Eosinophils (%) (Auto) (test code = 713-8) 1.1 0.0-6.0 [facility] AustinBasophils (%) (Auto)2018-01-28 06:18:00* Test Item Value Reference Range Interpretation Comments Basophils (%) (Auto) (test code = 706-2) 0.3 0.0-1.0 [facility] AustinIM GRANULOCYTES %2018-01-28 06:18:00* Test Item Value Reference Range Interpretation Comments IM GRANULOCYTES % (test code = IM GRANULOCYTES %) 0.3 0.0- 1.0 [facility] AustinNeutrophils # (Auto)2018-01-28 06:18:00* Test Item Value Reference Range Interpretation Comments Neutrophils # (Auto) (test code = 751-8) 3.8 2.1-6.9 [facility] AustinLymphocytes # (Auto)2018-01-28 06:18:00* Test Item Value Reference Range Interpretation Comments Lymphocytes # (Auto) (test code = 11447-2) 2.1 1.0-3.2 [facility] AustinMonocytes # (Auto)2018-01-28 06:18:00* Test Item Value Reference Range Interpretation Comments Monocytes # (Auto) (test code = 742-7) 0.5 0.2-0.8 [facility] AustinEosinophils # (Auto)2018-01-28 06:18:00* Test Item Value Reference Range Interpretation Comments Eosinophils # (Auto) (test code = 711-2) 0.1 0.0-0.4 [facility] AustinBasophils # (Auto)2018-01-28 06:18:00* Test Item Value Reference Range Interpretation Comments Basophils # (Auto) (test code = 704-7) 0.0 0.0-0.1 [facility] AustinAbsolute Immature Granulocyte (auto 2018-01-28 06:18:00* Test Item Value Reference Range Interpretation Comments Absolute Immature Granulocyte (auto (navya t code = Absolute Immature Granulocyte (auto) 0.02 0-0.1 [facility] AustinMagnesium Apieb6726-65-48 18:54:00* Test Item Value Reference Range Interpretation Comments Magnesium Level (test code = 43835-9) 1.7 1.3-2.1 [facility] AustinMagnesium Yezbn6885-73-68 18:54:00* Test Item Value Reference Range Interpretation Comments Magnesium Level (test code = 01965-2) 1.7 1.3-2.1 [facility] AustinMagnesium Wasoa1409-35-60 18:54:00* Test Item Value Reference Range Interpretation Comments Magnesium Level (test code = 29104-1) 1.7 1.3-2.1 [facility] Rpsddizho6003-06-73 14:55:00* Test Item Value Reference Range Interpretation Comments Free Thyroxine (test code = 3024-7) 1.22 0.9-1.8 [facility] AustinThyroid Stimulating Hormone (TSH) 2018-01-27 14:55:00* Test Item Value Reference Range Interpretation Comments Thyroid Stimulating Hormone (TSH) (test code = 26582-9) 0.979 0.350-4.940 [facility] Ffirzonlo9972-81-44 14:55:00* Test Item Value Reference Range Interpretation Comments Free Thyroxine (test code = 3024-7) 1.22 0.9-1.8 [facility] AustinThyroid Stimulating Hormone (TSH) 2018-01-27 14:55:00* Test Item Value Reference Range Interpretation Comments Thyroid Stimulating Hormone (TSH) (test code = 84521-1) 0.979 0.350-4.940 [facility] Tjuyaafoj4910-28-07 14:55:00* Test Item Value Reference Range Interpretation Comments Free Thyroxine (test code = 3024-7) 1.22 0.9-1.8 [facility] 2018-01-27 14:55:00* Test Item Value Reference Range Interpretation Comments Thyroid Stimulating Hormone (TSH) (test code = 67343-7) 0.979 0.350-4.940 [facility] A1c Tshtcke8673-66-61 14:33:00 * Test Item Value Reference Range Interpretation Comments Hemoglobin A1c Percent (test code = Hemoglobin A1c Percent) 10.7 4.0-7.0 H [facility] AustinH[facility] A1c Wlrjcuz4101-69-09 14:33:00 * Test Item Value Reference Range Interpretation Comments Hemoglobin A1c Percent (test code = Hemoglobin A1c Percent) 10.7 4.0-7.0 H [facility] AustinH[facility] A1c Npmxcsa6253-17-94 14:33:00 * Test Item Value Reference Range Interpretation Comments Hemoglobin A1c Percent (test code = Hemoglobin A1c Percent) 10.7 4.0-7.0 H [facility] Austin[facility] JAI6613-91-26 02:00:00* Test Item Value Reference Range Interpretation Comments Urine WBC (test code = 5821-4) 11-20 0-5 H [facility] Austin[facility] [id number] 02:00:00* Test Item Value Reference Range Interpretation Comments Urine RBC (test code = 36510-3) 50- 0-5 H [facility] Phuapxks9858-85-24 02:00:00* Test Item Value Reference Range Interpretation Comments Urine Bacteria (test code = 37424-0) MANY NONE H [facility] Epithelial Asrva1541-64-28 02:00:00 * Test Item Value Reference Range Interpretation Comments Urine Epithelial Cells (test code = 71569-0) FEW NONE [facility] Transitional Epithelial Cells 2018-01-27 02:00:00* Test Item Value Reference Range Interpretation Comments Urine Transitional Epithelial Cells (test code = 8249-5) [id number]* Test Item Value Reference Range Interpretation Comments Urine WBC (test code = 5821-4) 11-20 0-5 H [facility] [id number] 02:00:00* Test Item Value Reference Range Interpretation Comments Urine RBC (test code = 06681-7) 50- 0-5 H [facility] Xhfdxrjw4036-84-83 02:00:00* Test Item Value Reference Range Interpretation Comments Urine Bacteria (test code = 10249-4) MANY NONE H [facility] Epithelial Zjulw5277-53-32 02:00:00 * Test Item Value Reference Range Interpretation Comments Urine Epithelial Cells (test code = 66432-7) [facility] 2018-01-27 02:00:00* Test Item Value Reference Range Interpretation Comments Urine Transitional Epithelial Cells (test code = 8249-5) FEW NONE [facility] PTL4017-40-81 02:00:00* Test Item Value Reference Range Interpretation Comments Urine WBC (test code = 5821-4) 11-20 0-5 H [facility] BYY6216-31-52 02:00:00* Test Item Value Reference Range Interpretation Comments Urine RBC (test code = 85727-8) 50- 0-5 H [facility] Beawayoa3689-93-02 02:00:00* Test Item Value Reference Range Interpretation Comments Urine Bacteria (test code = 10376-5) MANY NONE H [facility] Epithelial Efcwi1049-31-01 02:00:00 * Test Item Value Reference Range Interpretation Comments Urine Epithelial Cells (test code = 45097-4) FEW [facility] Transitional Epithelial Cells 2018-01-27 02:00:00* Test Item Value Reference Range Interpretation Comments Urine Transitional Epithelial Cells (test code = 8249-5) FEW NONE [facility] [id number] 02:00:00* Test Item Value Reference Range Interpretation Comments Urine WBC (test code = 5821-4) 11-20 0-5 H [facility] JBZ5600-83-94 02:00:00* Test Item Value Reference Range Interpretation Comments Urine RBC (test code = 67196-9) 50- 0-5 H [facility] Kllzpago5539-76-79 02:00:00* Test Item Value Reference Range Interpretation Comments Urine Bacteria (test code = 20092-6) MANY NONE H [facility] Epithelial Tkjsd6709-17-47 02:00:00 * Test Item Value Reference Range Interpretation Comments Urine Epithelial Cells (test code = 40773-1) FEW [facility] Transitional Epithelial Cells 2018-01-27 02:00:00* Test Item Value Reference Range Interpretation Comments Urine Transitional Epithelial Cells (test code = 8249-5) FEW [facility] Transitional Epithelial Cells 2018-01-27 02:00:00* Test Item Value Reference Range Interpretation Comments Urine Transitional Epithelial Cells (test code = 8249-5) FEW NONE [facility] Ofaul0392-53-94 01:52:00* Test Item Value Reference Range Interpretation Comments Urine Color (test code = 5778-6) YELLOW YELLOW [facility] Pptciuc5568-96-87 01:52:00* Test Item Value Reference Range Interpretation Comments Urine Clarity (test code = 50112-7) HAZY CLEAR [facility] Specific Jzrhxls0384-65-59 01:52:00 * Test Item Value Reference Range Interpretation Comments Urine Specific [place] (test code = 5811-5) 1.020 1.010-1.02 5 [facility] [id number] 01:52:00* Test Item Value Reference Range Interpretation Comments Urine pH (test code = 11282-7) 6 5-7 [facility] Leukocyte Ngclpuzc7178-29-58 01:52:00* Test Item Value Reference Range Interpretation Comments Urine Leukocyte Esterase (test code = 5799-2) 1+ NEGATIVE H [facility] Tejdhqs6256-31-62 01:52:00* Test Item Value Reference Range Interpretation Comments Urine Nitrite (test code = 57226-8) NEGATIVE NEGATIVE [facility] Kwdxzrk8970-95-92 01:52:00* Test Item Value Reference Range Interpretation Comments Urine Protein (test code = 5804-0) 1+ NEGATIVE H [facility] Glucose (UA)2018-01-27 01:52:00* Test Item Value Reference Range Interpretation Comments Urine Glucose (UA) (test code = 2349-9) 3+ NEGATIVE H [facility] Ffxdmuv6629-97-40 01:52:00* Test Item Value Reference Range Interpretation Comments Urine Ketones (test code = 28418-1) 3+ NEGATIVE H [facility] Zkqyclvsypjd8352-77-77 01:52:00* Test Item Value Reference Range Interpretation Comments Urine Urobilinogen (test code = 12817-5) 0.2 0.2-1 [facility] Mdgmmsrgv4925-57-17 01:52:00* Test Item Value Reference Range Interpretation Comments Urine Bilirubin (test code = 1978-6) NEGATIVE NEGATIVE [facility] Cwfyn4884-81-85 01:52:00* Test Item Value Reference Range Interpretation Comments Urine Blood (test code = 16633-2) 3+ NEGATIVE H [facility] Jxwle8730-95-60 01:52:00* Test Item Value Reference Range Interpretation Comments Urine Color (test code = 5778-6) YELLOW YELLOW [facility] Dxkqxbz7420-02-91 01:52:00* Test Item Value Reference Range Interpretation Comments Urine Clarity (test code = 90654-8) HAZY CLEAR [facility] Specific Xbdxjoo4155-81-60 01:52:00 * Test Item Value Reference Range Interpretation Comments Urine Specific [place] (test code = 5811-5) 1.020 1.010-1.02 5 [facility] [id number] 01:52:00* Test Item Value Reference Range Interpretation Comments Urine pH (test code = 44571-5) 6 5-7 [facility] Leukocyte Vtttmznz2961-48-09 01:52:00* Test Item Value Reference Range Interpretation Comments Urine Leukocyte Esterase (test code = 5799-2) 1+ NEGATIVE H [facility] Pwkhtbz5373-79-83 01:52:00* Test Item Value Reference Range Interpretation Comments Urine Nitrite (test code = 59394-5) NEGATIVE NEGATIVE [facility] Xzfkjkm3408-66-46 01:52:00* Test Item Value Reference Range Interpretation Comments Urine Protein (test code = 5804-0) 1+ NEGATIVE H [facility] Glucose (UA)2018-01-27 01:52:00* Test Item Value Reference Range Interpretation Comments Urine Glucose (UA) (test code = 2349-9) 3+ NEGATIVE H [facility] Rmuvipi2958-33-91 01:52:00* Test Item Value Reference Range Interpretation Comments Urine Ketones (test code = 62466-9) 3+ NEGATIVE H [facility] Jwdwjtcxoxwp5856-84-48 01:52:00* Test Item Value Reference Range Interpretation Comments Urine Urobilinogen (test code = 95928-3) 0.2 0.2-1 [facility] Xzawcgayk4652-21-91 01:52:00* Test Item Value Reference Range Interpretation Comments Urine Bilirubin (test code = 1978-6) NEGATIVE NEGATIVE [facility] Eefyk6285-99-48 01:52:00* Test Item Value Reference Range Interpretation Comments Urine Blood (test code = 35851-1) 3+ NEGATIVE H [facility] Iundf5059-53-70 01:52:00* Test Item Value Reference Range Interpretation Comments Urine Color (test code = 5778-6) YELLOW YELLOW [facility] Akbwfjk4299-40-08 01:52:00* Test Item Value Reference Range Interpretation Comments Urine Clarity (test code = 62358-3) HAZY CLEAR [facility] Specific Oepdxyd1165-15-67 01:52:00 * Test Item Value Reference Range Interpretation Comments Urine Specific [place] (test code = 5811-5) 1.020 1.010-1.02 5 [facility] vB7642-33-60 01:52:00* Test Item Value Reference Range Interpretation Comments Urine pH (test code = 02883-3) 6 5-7 [facility] Leukocyte Jobhcoor7109-04-55 01:52:00* Test Item Value Reference Range Interpretation Comments Urine Leukocyte Esterase (test code = 5799-2) 1+ NEGATIVE H [facility] Hexfaco9689-76-00 01:52:00* Test Item Value Reference Range Interpretation Comments Urine Nitrite (test code = 99629-4) NEGATIVE NEGATIVE [facility] Naxhmpb3552-09-76 01:52:00* Test Item Value Reference Range Interpretation Comments Urine Protein (test code = 5804-0) 1+ NEGATIVE H [facility] Glucose (UA)2018-01-27 01:52:00* Test Item Value Reference Range Interpretation Comments Urine Glucose (UA) (test code = 2349-9) 3+ NEGATIVE H [facility] Fpehgpx8379-06-22 01:52:00* Test Item Value Reference Range Interpretation Comments Urine Ketones (test code = 38462-5) 3+ NEGATIVE H [facility] Myhddxdpkjil7082-41-77 01:52:00* Test Item Value Reference Range Interpretation Comments Urine Urobilinogen (test code = 66563-9) 0.2 0.2-1 [facility] Phxybytua8610-28-37 01:52:00* Test Item Value Reference Range Interpretation Comments Urine Bilirubin (test code = 1978-6) NEGATIVE NEGATIVE [facility] Ieusz1665-69-85 01:52:00* Test Item Value Reference Range Interpretation Comments Urine Blood (test code = 19247-5) 3+ NEGATIVE H [facility] Nheog3480-49-34 01:52:00* Test Item Value Reference Range Interpretation Comments Urine Color (test code = 5778-6) YELLOW YELLOW [facility] Uwtuvhe2563-57-08 01:52:00* Test Item Value Reference Range Interpretation Comments Urine Clarity (test code = 92682-0) HAZY CLEAR [facility] Specific Ilaunaa5215-26-42 01:52:00 * Test Item Value Reference Range Interpretation Comments Urine Specific [place] (test code = 5811-5) 1.020 1.010-1.02 5 [facility] oM8184-03-59 01:52:00* Test Item Value Reference Range Interpretation Comments Urine pH (test code = 48689-6) 6 5-7 [facility] Leukocyte Fzmkowgh1914-81-87 01:52:00* Test Item Value Reference Range Interpretation Comments Urine Leukocyte Esterase (test code = 5799-2) 1+ NEGATIVE H [facility] Zfsphlx2376-67-56 01:52:00* Test Item Value Reference Range Interpretation Comments Urine Nitrite (test code = 86446-8) NEGATIVE NEGATIVE [facility] Dhszkrk8316-86-07 01:52:00* Test Item Value Reference Range Interpretation Comments Urine Protein (test code = 5804-0) 1+ NEGATIVE H [facility] Glucose (UA)2018-01-27 01:52:00* Test Item Value Reference Range Interpretation Comments Urine Glucose (UA) (test code = 2349-9) 3+ NEGATIVE H [facility] Pjhieeg3815-17-45 01:52:00* Test Item Value Reference Range Interpretation Comments Urine Ketones (test code = 81673-0) 3+ NEGATIVE H [facility] Difodhbtgvqy5966-17-18 01:52:00* Test Item Value Reference Range Interpretation Comments Urine Urobilinogen (test code = 90205-6) 0.2 0.2-1 [facility] Dpxymdbfe9839-34-35 01:52:00* Test Item Value Reference Range Interpretation Comments Urine Bilirubin (test code = 1978-6) NEGATIVE NEGATIVE [facility] Hwkle2060-91-87 01:52:00* Test Item Value Reference Range Interpretation Comments Urine Blood (test code = 06296-7) 3+ NEGATIVE H [facility] AustinCreatine Kinase OH3598-01-86 20:15:00* Test Item Value Reference Range Interpretation Comments Creatine Kinase MB (test code = 50013-3) 0.60 0-5.0 [facility] AustinTroponin X1908-00-21 20:15:00* Test Item Value Reference Range Interpretation Comments Troponin I (test code = MOA3206) 0.009 0-0.300 [facility] AustinCreatine Kinase UT0602-48-09 20:15:00* Test Item Value Reference Range Interpretation Comments Creatine Kinase MB (test code = 31999-4) 0.60 0-5.0 [facility] AustinTroponin N0881-48-03 20:15:00* Test Item Value Reference Range Interpretation Comments Troponin I (test code = ZWF9666) 0.009 0-0.300 [facility] AustinCreat[facility] Kinase KO0425-36-50 20:15:00* Test Item Value Reference Range Interpretation Comments Creatine Kinase MB (test code = 06159-6) 0.60 0-5.0 [facility] AustinTr[place] 04663E3588-34-13 20:15:00* Test Item Value Reference Range Interpretation Comments Troponin I (test code = CSB3901) 0.009 0-0.300 [facility] AustinCreat[facility] Kinase CB6335-24-84 20:15:00* Test Item Value Reference Range Interpretation Comments Creatine Kinase MB (test code = 59334-1) 0.60 0-5.0 [facility] AustinTrL[place] [address]663M0861-75-35 20:15:00* Test Item Value Reference Range Interpretation Comments Troponin I (test code = LJE0351) 0.009 0-0.300 [facility] AustinCreat[facility] Kinase FO1605-84-36 20:15:00* Test Item Value Reference Range Interpretation Comments Creatine Kinase MB (test code = 35164-9) 0.60 0-5.0 [place] 68801018-03-18 20:15:00* Test Item Value Reference Range Interpretation Comments Troponin I (test code = EEN5373) 0.009 0-0.300 [facility] AustinCreat[facility] Zuagia1084-25-35 20:11:00* Test Item Value Reference Range Interpretation Comments Creatine Kinase (test code = 2157-6) 37 30-200 [facility] AustinAmylase Tvetk7529-54-60 20:11:00* Test Item Value Reference Range Interpretation Comments Amylase Level (test code = 1798-8) 20 25-125 L [facility] AustinLipase2018-03-18 20:11:00* Test Item Value Reference Range Interpretation Comments Lipase (test code = 3040-3) -4 8-78 L [facility] AustinCreat[facility] Zticib8975-59-47 20:11:00* Test Item Value Reference Range Interpretation Comments Creatine Kinase (test code = 2157-6) 37 30-200 [facility] AustinAmylase Ousgy9822-29-27 20:11:00* Test Item Value Reference Range Interpretation Comments Amylase Level (test code = 1798-8) 20 25-125 L [facility] AustinLipase2018-03-18 20:11:00* Test Item Value Reference Range Interpretation Comments Lipase (test code = 3040-3) -4 8-78 L [facility] AustinCreat[facility] Hdbedg6306-63-10 20:11:00* Test Item Value Reference Range Interpretation Comments Creatine Kinase (test code = 2157-6) 37 30-200 [facility] AustinAmylase Hului2969-02-67 20:11:00* Test Item Value Reference Range Interpretation Comments Amylase Level (test code = 1798-8) 20 25-125 L [facility] AustinLip[facility]2018-03-18 20:11:00* Test Item Value Reference Range Interpretation Comments Lipase (test code = 3040-3) -4 8-78 L [facility] AustinCreat[facility] Xohoiy4866-51-30 20:11:00* Test Item Value Reference Range Interpretation Comments Creatine Kinase (test code = 2157-6) 37 30-200 [facility] AustinAmylase Kupto2597-14-24 20:11:00* Test Item Value Reference Range Interpretation Comments Amylase Level (test code = 1798-8) 20 25-125 L [facility] AustinLip[facility]2018-03-18 20:11:00* Test Item Value Reference Range Interpretation Comments Lipase (test code = 3040-3) -4 8-78 L [facility] AustinCreat[facility] Uzeuek3991-34-25 20:11:00* Test Item Value Reference Range Interpretation Comments Creatine Kinase (test code = 2157-6) 37 30-200 [facility] AustinAmylase Njjnd6268-25-81 20:11:00* Test Item Value Reference Range Interpretation Comments Amylase Level (test code = 1798-8) 20 25-125 L [facility] AustinLip[facility]2018-03-18 20:11:00* Test Item Value Reference Range Interpretation Comments Lipase (test code = 3040-3) -4 8-78 L [facility] AustinBlood Iuejyek8805-85-30 22:19:00* Test Item Value Reference Range Interpretation Comments Blood Culture (test code = 04529704) NO GROWTH AFTER 5 DAYS, FINAL REPORT [facility]2018-01-03 22:19:00* Test Item Value Reference Range Interpretation Comments Blood Culture (test code = 87962328) NO GROWTH AFTER 5 DAYS, FINAL REPORT [facility] Ifeqska9424-97-88 22:19:00* Test Item Value Reference Range Interpretation Comments Blood Culture (test code = 94365453) NO GROWTH AFTER 5 DAYS, FINAL REPORT [facility] Cqcfkbw6089-69-28 22:19:00* Test Item Value Reference Range Interpretation Comments Blood Culture (test code = 78542839) NO GROWTH AFTER 5 DAYS, FINAL REPORT [facility] Hbkzefz8496-06-93 22:19:00* Test Item Value Reference Range Interpretation Comments Blood Culture (test code = 26126234) NO GROWTH AFTER 5 DAYS, FINAL REPORT [facility] AustinPlatelet Bioxvjto1500-43-26 10:18:00* Test Item Value Reference Range Interpretation Comments Platelet Estimate (test code = 80703-1) ADEQUATE [facility] AustinPlatelet Morphology Jwxthjo4981-46-13 10:18:00* Test Item Value Reference Range Interpretation Comments Platelet Morphology Comment (test code = 54310-6) NORMAL [facility] AustinAnisocytosis2018-01-01 10:18:00* Test Item Value Reference Range Interpretation Comments Anisocytosis (test code = 702-1) SLIGHT [facility] AustinMicrocytosis2018-01-01 10:18:00* Test Item Value Reference Range Interpretation Comments Microcytosis (test code = 741-9) X [facility] AustinRed Cell Morphology Mamwooe6435-49-81 10:18:00* Test Item Value Reference Range Interpretation Comments Red Cell Morphology Comment (test code = 6742-1) NORMAL [facility] AustinPl[facility] Samsserp2362-25-64 10:18:00* Test Item Value Reference Range Interpretation Comments Platelet Estimate (test code = 32231-4) ADEQUATE [facility] AustinPl[facility] Morphology Zcoawpc3468-01-12 10:18:00* Test Item Value Reference Range Interpretation Comments Platelet Morphology Comment (test code = 18074-6) NORMAL [facility] AustinAnisocytosis2018-01-01 10:18:00* Test Item Value Reference Range Interpretation Comments Anisocytosis (test code = 702-1) SLIGHT [facility] AustinMicrocytosis2018-01-01 10:18:00* Test Item Value Reference Range Interpretation Comments Microcytosis (test code = 741-9) X [facility] AustinRed Cell Morphology Whasdai4906-10-29 10:18:00* Test Item Value Reference Range Interpretation Comments Red Cell Morphology Comment (test code = 6742-1) NORMAL [facility] AustinPl[facility] Wgngdbhk5092-39-47 10:18:00* Test Item Value Reference Range Interpretation Comments Platelet Estimate (test code = 31563-2) ADEQUATE [facility] AustinPl[facility] Morphology Llkmmwj2557-32-35 10:18:00* Test Item Value Reference Range Interpretation Comments Platelet Morphology Comment (test code = 46633-0) NORMAL [facility] AustinAnisocytosis2018-01-01 10:18:00* Test Item Value Reference Range Interpretation Comments Anisocytosis (test code = 702-1) SLIGHT [facility] AustinMicrocytosis2018-01-01 10:18:00* Test Item Value Reference Range Interpretation Comments Microcytosis (test code = 741-9) X [facility] AustinRed Cell Morphology Oeerujo5602-23-86 10:18:00* Test Item Value Reference Range Interpretation Comments Red Cell Morphology Comment (test code = 6742-1) NORMAL [facility] AustinPl[facility] Nfwjuhwd6486-70-65 10:18:00* Test Item Value Reference Range Interpretation Comments Platelet Estimate (test code = 41555-7) ADEQUATE [facility] AustinPl[facility] Morphology Yzxghkp4326-93-09 10:18:00* Test Item Value Reference Range Interpretation Comments Platelet Morphology Comment (test code = 49130-3) NORMAL [facility] AustinAnisocytosis2018-01-01 10:18:00* Test Item Value Reference Range Interpretation Comments Anisocytosis (test code = 702-1) SLIGHT [facility] AustinMicrocytosis2018-01-01 10:18:00* Test Item Value Reference Range Interpretation Comments Microcytosis (test code = 741-9) X [facility] AustinRed Cell Morphology Sijdhua5084-09-16 10:18:00* Test Item Value Reference Range Interpretation Comments Red Cell Morphology Comment (test code = 6742-1) NORMAL [facility] AustinAnisocytosis2018-01-01 10:18:00* Test Item Value Reference Range Interpretation Comments Anisocytosis (test code = 702-1) SLIGHT [facility] AustinMicrocytosis2018-01-01 10:18:00* Test Item Value Reference Range Interpretation Comments Microcytosis (test code = 741-9) X [facility] AustinArterial Blood [id number] 22:27:00* Test Item Value Reference Range Interpretation Comments Arterial Blood pH (test code = 2744-1) 7.01 7.31-7.41 LL Results called to MD JACOB at 2221 on 11/08/17 by Huan Champion. RB [place].[facility] AustinArterial Blood Partial Pressure PI27222-81-71 22:27:00* Test Item Value Reference Range Interpretation Comments Arterial Blood Partial Pressure CO2 (test code = 2018-) 11 41-51 L [facility] AustinArterial Blood Partial Pressure O2 2017-11-08 22:27:00* Test Item Value Reference Range Interpretation Comments Arterial Blood Partial Pressure O2 (test code = 2018-) 138 80-105 H [facility] AustinArterial Blood LYL48434-37-42 22:27:00* Test Item Value Reference Range Interpretation Comments Arterial Blood HCO3 (test code = 1960-4) 3 23-28 L [facility] AustinAr[facility] Blood Base Eiklky4983-44-43 22:27:00* Test Item Value Reference Range Interpretation Comments Arterial Blood Base Excess (test code = 1925-7) -28.0 -2-3 L [facility] AustinAr[facility] Blood Oxygen Saturation 2017-11-08 22:27:00* Test Item Value Reference Range Interpretation Comments Arterial Blood Oxygen Saturation (test code = 2708-6) 97.0 95-98 [facility] Blood [id number] 22:27:00* Test Item Value Reference Range Interpretation Comments Arterial Blood pH (test code = 2744-1) 7.01 7.31-7.41 LL Results called to MD JACOB at 2221 on 11/08/17 by Huan Champion. RB [place].[facility] [facility] [id number] 22:27:00* Test Item Value Reference Range Interpretation Comments Arterial Blood Partial Pressure CO2 (test code = 2018-) 11 41-51 L [facility] O2 2017-11-08 22:27:00* Test Item Value Reference Range Interpretation Comments Arterial Blood Partial Pressure O2 (test code = 2019-06) 138 80-105 H [facility] [id number] 22:27:00* Test Item Value Reference Range Interpretation Comments Arterial Blood HCO3 (test code = 1960-4) 3 23-28 L [facility] Base Qirfrj1531-08-86 22:27:00* Test Item Value Reference Range Interpretation Comments Arterial Blood Base Excess (test code = 1925-7) -28.0 -2-3 L [facility] Oxygen Saturation 2017-11-08 22:27:00* Test Item Value Reference Range Interpretation Comments Arterial Blood Oxygen Saturation (test code = 2708-6) 97.0 95-98 [facility] [id number] 22:27:00* Test Item Value Reference Range Interpretation Comments Arterial Blood pH (test code = 2744-1) 7.01 7.31-7.41 LL Results called to MD JACOB at 2221 on 11/08/17 by Huan Champion. RB OK.[facility] [id number] 22:27:00* Test Item Value Reference Range Interpretation Comments Arterial Blood Partial Pressure CO2 (test code = 2018-8) 11 41-51 L [facility] O2 2017-11-08 22:27:00* Test Item Value Reference Range Interpretation Comments Arterial Blood Partial Pressure O2 (test code = 2019-06) 138 80-105 H [facility] [id number] 22:27:00* Test Item Value Reference Range Interpretation Comments Arterial Blood HCO3 (test code = 1960-4) 3 23-28 L [facility] Base Kjtalw0888-36-04 22:27:00* Test Item Value Reference Range Interpretation Comments Arterial Blood Base Excess (test code = 1925-7) -28.0 -2-3 L [facility] Oxygen Saturation 2017-11-08 22:27:00* Test Item Value Reference Range Interpretation Comments Arterial Blood Oxygen Saturation (test code = 2708-6) 97.0 95-98 [facility] Blood [id number] 22:27:00* Test Item Value Reference Range Interpretation Comments Arterial Blood pH (test code = 2744-1) 7.01 7.31-7.41 LL Results called to MD JACOB at 2221 on 11/08/17 by Huan Champion. RB OK.[facility] [id number] 22:27:00* Test Item Value Reference Range Interpretation Comments Arterial Blood Partial Pressure CO2 (test code = 2019-06) 11 41-51 L [facility] O2 2017-11-08 22:27:00* Test Item Value Reference Range Interpretation Comments Arterial Blood Partial Pressure O2 (test code = 2019-06) 138 80-105 H [facility] [id number] 22:27:00* Test Item Value Reference Range Interpretation Comments Arterial Blood HCO3 (test code = 1960-4) 3 23-28 L [facility] Base Rdyqhy5903-27-98 22:27:00* Test Item Value Reference Range Interpretation Comments Arterial Blood Base Excess (test code = 1925-7) -28.0 -2-3 L [facility] Oxygen Saturation 2017-11-08 22:27:00* Test Item Value Reference Range Interpretation Comments Arterial Blood Oxygen Saturation (test code = 2708-6) 97.0 95-98 [facility] [id number] 22:27:00* Test Item Value Reference Range Interpretation Comments Arterial Blood pH (test code = 2744-1) 7.01 7.31-7.41 LL Results called to MD JACOB at 2221 on 11/08/17 by Huan Champion. RB OK.[facility] Partial Pressure [id number] 22:27:00* Test Item Value Reference Range Interpretation Comments Arterial Blood Partial Pressure CO2 (test code = 2018-) 11 41-51 L [facility] Partial Pressure O2 2017-11-08 22:27:00* Test Item Value Reference Range Interpretation Comments Arterial Blood Partial Pressure O2 (test code = 2019-06) 138 80-105 H [facility] [id number] 22:27:00* Test Item Value Reference Range Interpretation Comments Arterial Blood HCO3 (test code = 1960-4) 3 23-28 L [facility] Base Sjsqkb3431-41-90 22:27:00* Test Item Value Reference Range Interpretation Comments Arterial Blood Base Excess (test code = 1925-7) -28.0 -2-3 L [facility] Oxygen Saturation 2017-11-08 22:27:00* Test Item Value Reference Range Interpretation Comments Arterial Blood Oxygen Saturation (test code = 2708-6) 97.0 95-98 [facility] AustinA[facility] bacterial blood qnzjxir1071-43-06 12:23:00Comment Bed:4 Only Aerobic Pediatric Blood Culture Bottle ReceivedNo growth in 5 days.^No growth in 5 days.^LBlood anaerobic rvwouef6313-06-44 12:23:00Comment Bed:4 Only Aerobic Pediatric Blood Culture Bottle ReceivedNot Done^Not Done^L^NDPotassium pwxyndtoydj3006-91-63 21:27:00* Test Item Value Reference Range Interpretation Comments Potassium measurement (test code = UKC5915) 3.6 meq/L 3.6-5.0 Primary Language EnglishGlucose blood ocuxwqoieic9624-37-47 20:54:00* Test Item Value Reference Range Interpretation Comments Glucose blood fingerstick (test code = WGT7936) 174 mg/dL 65-120 H Potassium dirtkujwbpy5446-28-28 18:55:00* Test Item Value Reference Range Interpretation Comments Potassium measurement (test code = CRV1450) 2.8 meq/L 3.6-5.0 LL Repeated, Pt history, Broadcast at 1855 by [facility]ENIXOne on One MarketingLONG [facility] Primary Language EnglishGlucose blood xxywdzeekzf9590-92-57 16:12:00* Test Item Value Reference Range Interpretation Comments Glucose blood fingerstick (test code = SHV0699) 184 mg/dL 65-120 H Glucose blood mxupclbhtxr4922-70-30 12:15:00* Test Item Value Reference Range Interpretation Comments Glucose blood fingerstick (test code = GMB7912) 191 mg/dL 65-120 H Glucose blood iafuasafblb5565-99-84 12:15:00* Test Item Value Reference Range Interpretation Comments Glucose blood fingerstick (test code = CZP2964) 232 mg/dL 65-120 H Glucose blood dwzllpmhnfd3668-18-88 08:04:00* Test Item Value Reference Range Interpretation Comments Glucose blood fingerstick (test code = GAG8575) 94 mg/dL 65-120 Glucose blood wihxvgipkml1152-65-06 08:04:00* Test Item Value Reference Range Interpretation Comments Glucose blood fingerstick (test code = UKO1977) 60 mg/dL 65-120 L Potassium zpohbxazufw9953-58-98 07:24:00* Test Item Value Reference Range Interpretation Comments Potassium measurement (test code = YUP7381) 2.6 meq/L 3.6-5.0 LL Repeated, Pt history, Broadcast at 0724 by [facility] Primary Language EnglishComplete blood count (CBC) with automated white blood cell (WBC) ljwvaluiwfcl5797-96-54 04:42:00* Test Item Value Reference Range Interpretation Comments White blood cell count (test code = WMV3404) 5.8 4.3-10.9 Blood erythrocytes count (number/volume) (test code = 99647- 1) 4.62 M/ul 4.33-5.43 Hemoglobin measurement (test code = NNY1373) 15.1 g/dL 13.6-17.9 Blood hematocrit (volume fraction) (test code = 64369-9) 41.9 % 39.6-49.0 MCV (test code = 03064-0) 90.6 fL 80-100 MCH (test code = 26797-6) 32.7 pg 27.0-35.0 MCHC (test code = MCHC) 36.1 g/dL 32.0-36.0 H Platelets (test code = PLT) 191 152-406 Red Cell Distribution Width (test code = RDW) 13.1 % 12.1-15. 2 Blood platelet mean volume (test code = 34024-7) 7.6 fL 7.6-1 1.3 Neutrophils % (test code = SID%) 49.5 % 41.7-73.7 Lymphocytes/leuk NFr Bld (test code = 90911-7) 35.3 % 15.3-44 .8 Monocyte percentage (test code = 5905-5) 14.4 % 3.3-12.3 H Eosinophil % (test code = 713-8) 0.2 % 0-4.4 Basophil % (test code = 07433-3) 0.6 % 0-1.3 Absolute neutrophil count (test code = 751-8) 2.9 1.8-8.0 Absolute lymphocyte count (test code = 97058-5) 2.1 0.7-4. 9 Absolute monocyte count (test code = 742-7) 0.8 0.1-1.3 Absolute Eosinophils (test code = EOA) 0.0 0-0.5 Absolute Basophils (test code = BASA) 0.0 0-0.5 [facility] Metabolic Ykskr8578-84-42 04:33:00* Test Item Value Reference Range Interpretation Comments Sodium level (test code = YAR0280) 132 meq/L 135-145 L 2.6Repeated & Called to ISA FRANCOIS RN on 06/20/17 at 0432 by SYDNEE Was there 100% Readback? Y Chloride measurement (test code = GFM0678) 91 meq/L 101-111 L Bicarbonate (test code = CO2) 33 meq/L 21-31 H Glucose measurement (test code = WTW9123) 64 mg/dL 65-120 L ADA Clinical Practice Recommendation: <100 mg/dl = Normal Fasting Glucose BUN Bld-mCnc (test code = 6299-2) 5 mg/dL 6-20 L Creatinine measurement (test code = VDX3643) 0.41 mg/dL 0.61-1.24 L The creatinine method used has been calibrated to be traceable to Isotope dilution Mass Spectrometry (IDMS). For more information: www.nkdep.nih.gov Estimated glomerular filtration rate (GFR) determinati on (test code = 43510-3) >90 mL =/>90 FOR CHRONIC KIDNEY D [...] CA) 8.1 mg/dL 8.5-10.5 L Primary Language [place] Primary Language EnglishMagnesium bsgeydmsdgi7394-47-04 04:33:00* Test Item Value Reference Range Interpretation Comments Magnesium measurement (test code = 29647-5) 1.9 mg/dL 1.8-2.5 Primary Language [place] Primary Language EnglishPotassium qloyzqdtudz5490-96-69 22:08:00* Test Item Value Reference Range Interpretation Comments Potassium measurement (test code = XPU0163) 2.8 meq/L 3.6-5.0 LL Repeated & Called to ISA FRANCOIS RN on 06/19/17 at 2208 by REBECCA Was there 100% Readback? Y Primary Language EnglishGlucose blood nnbghyuisqa2899-06-76 20:02:00* Test Item Value Reference Range Interpretation Comments Glucose blood fingerstick (test code = DPD2898) 255 mg/dL 65-120 H Glucose blood nblekocszkz6307-36-36 19:03:00* Test Item Value Reference Range Interpretation Comments Glucose blood fingerstick (test code = NGN4349) 297 mg/dL 65-120 H Basic Metabolic Gppud9687-69-42 13:07:00* Test Item Value Reference Range Interpretation Comments Sodium level (test code = VTW7350) 126 meq/L 135-145 L 3.3 Chloride measurement (test code = SRM0886) 92 meq/L 101-111 L Bicarbonate (test code = CO2) 21 meq/L 21-31 Glucose measurement (test code = BDX8037) 311 mg/dL 65-120 H ADA Clinical Practice Recommendation: <100 mg/dl = Normal Fasting Glucose BUN Bld-mCnc (test code = 6299-2) 9 mg/dL 6-20 Creatinine measurement (test code = HDL1132) 0.60 mg/dL 0.61-1.24 L The creatinine method used has been calibrated to be traceable to Isotope dilution Mass Spectrometry (IDMS). For more information: www.nkdep.nih.gov Estimated glomerular filtration rate (GFR) determinati on (test code = 98714-8) >90 mL =/>90 FOR CHRONIC KIDNEY D [...] mg/dL 8.5-10.5 L Primary Language EnglishGlucose blood ubtkewybqjc0706-77-96 11:57:00* Test Item Value Reference Range Interpretation Comments Glucose blood fingerstick (test code = ZMJ5564) 265 mg/dL 65-120 H Glucose blood wzpfrbwurnb6766-09-91 11:57:00* Test Item Value Reference Range Interpretation Comments Glucose blood fingerstick (test code = LME2131) 142 mg/dL 65-120 H Hemoglobin A1c ltzetpmfzpj2120-46-73 09:13:00* Test Item Value Reference Range Interpretation Comments Hemoglobin A1c measurement (test code = 25636-8) 12.1 % 4-6.0 H Primary Language EnglishLipid yxtnins9303-54-56 06:06:00* Test Item Value Reference Range Interpretation Comments Cholesterol measurement (test code = LJP3754) 185 mg/dL <200 51 HDL Cholesterol (test code = HDL) 38 mg/dL 27-67 Serum or plasma cholesterol in LDL measu rement by calculation (mass/volume) (test code = 25615-9) 137 <130 H This LDL i s a calculated result; a more accurate analysis can be performed using the direct LDL methodology. Total cholesterol/cholesterol in HDL (percentile) (test code = 9322 -9) 4.87 LIPID RISK RATIOS: 1/2 AVERAGE AVERAGE 2X AVERAGE 3X AVERAGE ------- MALE 3.43 4.97 9.55 23.39 FEMALE 3.27 4.44 7.05 11.04 Primary Language EnglishAcetone Fkfqx0370-14-59 06:06:00* Test Item Value Reference Range Interpretation Comments Acetone Level (test code = ACET) SMALL NEG AA Primary Language EnglishMagnesium fkmxgzqpnbm8883-51-68 06:06:00* Test Item Value Reference Range Interpretation Comments Magnesium measurement (test code = 99859-1) 2.0 mg/dL 1.8-2.5 Primary Language EnglishThyroid Stimulating Fusiqzq6607-37-60 06:06:00* Test Item Value Reference Range Interpretation Comments Thyroid Stimulating Hormone (test code = TSH) 1.11 [iU]/L 0.34-5.6 0 Primary Language EnglishArterial blood gas fjmcdpvwdki2601-40-69 05:35:00* Test Item Value Reference Range Interpretation Comments Blood gas pH assay (test code = 70290-2) 7.43 7.35-7.45 +ID,;RBA STICK;21% FIO2@Other : Repeated & Called to TRACEY MONROE on 06/19/17 at 0535 by DE Was there 100% Readback? Y Blood partial pressure of carbon dioxide measurement ( test code = 70635-0) 29.8 mm[Hg] 35-45 L Blood partial pressure [...] White blood cell count (test code = DMG0355) 7.7 4.3-10.9 Blood erythrocytes count (number/volume) (test code = 46247- 1) 4.74 M/ul 4.33-5.43 Hemoglobin measurement (test code = SKJ2250) 15.7 g/dL 13.6-17.9 Blood hematocrit (volume fraction) (test code = 27445-2) 43.7 % 39.6-49.0 MCV (test code = 88234-3) 92.2 fL 80-100 MCH (test code = 28273-2) 33.1 pg 27.0-35.0 MCHC (test code = MCHC) 35.9 g/dL 32.0-36.0 Platelets (test code = PLT) 227 152-406 Red Cell Distribution Width (test code = RDW) 12.9 % 12.1-15. 2 Blood platelet mean volume (test code = 00715-0) 7.7 fL 7.6-1 1.3 Neutrophils % (test code = SID%) 62.1 % 41.7-73.7 Lymphocytes/leuk NFr Bld (test code = 39032-3) 24.1 % 15.3-44 .8 Monocyte percentage (test code = 5905-5) 13.2 % 3.3-12.3 H Eosinophil % (test code = 713-8) 0.2 % 0-4.4 Basophil % (test code = 32074-1) 0.4 % 0-1.3 Absolute neutrophil count (test code = 751-8) 4.8 1.8-8.0 Absolute lymphocyte count (test code = 63890-4) 1.8 0.7-4. 9 Absolute monocyte count (test code = 742-7) 1.0 0.1-1.3 Absolute Eosinophils (test code = EOA) 0.0 0-0.5 Absolute Basophils (test code = BASA) 0.0 0-0.5 [facility] Metabolic Gvxpu8561-28-79 02:50:00* Test Item Value Reference Range Interpretation Comments Sodium level (test code = SFN4672) 127 meq/L 135-145 L 2.5Repeated & Called to WU ALANIS RN on 06/19/17 at 0250 by [place] [address] Was there 100% Readback? Y Chloride measurement (test code = POI1437) 98 meq/L 101-111 L Bicarbonate (test code = CO2) 20 meq/L 21-31 L Glucose measurement (test code = KJG5904) 158 mg/dL 65-120 H ADA Clinical Practice Recommendation: <100 mg/dl = Normal Fasting Glucose BUN Bld-mCnc (test code = 6299-2) 12 mg/dL 6-20 Creatinine measurement (test code = UGG7981) 0.75 mg/dL 0.61-1.24 The creatinine method used has been calibrated to be traceable to Isotope dilution Mass Spectrometry (IDMS). For more information: www.nkdep.nih.gov Estimated glomerular filtration rate (GFR) determinati on (test code = 45458-2) >90 mL =/>90 FOR CHRONIC KIDNEY D [...] mg/dL 8.5-10.5 L Primary Language EnglishUrine drug scnxma7514-21-51 21:35:00* Test Item Value Reference Range Interpretation Comments Phencyclidine, Urine (test code = PCP) NEGATIVE Benzodiazepines (test code = BZO) NEGATIVE Urine cocaine detection by screening method (test code = 11589-8) N egative Amphetamines,Urine (test code = AMP) NEGATIVE Urine buhnr-0-roqvxggvhyvqdwezasgp (THC) measurement ( test code = IWN6433) NEGATIVE Urine opiates detection (test code = 3879-4) Negative Barbiturates (test code = BAR) NEGATIVE Oxycodone, Urine (test code = OXY) NEGATIVE Urine methylenedioxymethamphetamine (MDMA) detection ( test code = 53728-2) Negative This urine was quali tatively tested [...] (e.g. employment testing, legal testing). Basic Metabolic Skqer7114-49-16 21:25:00* Test Item Value Reference Range Interpretation Comments Sodium level (test code = PZT5966) 129 meq/L 135-145 L 2.9Repeated, Pt history, Broadcast at 2124 by [employer] Chloride measurement (test code = ZKT5202) 100 meq/L 101-111 L Bicarbonate (test code = CO2) 16 meq/L 21-31 L Glucose measurement (test code = OVE5279) 202 mg/dL 65-120 H ADA Clinical Practice Recommendation: <100 mg/dl = Normal Fasting Glucose BUN Bld-mCnc (test code = 6299-2) 12 mg/dL 6-20 Creatinine measurement (test code = WAC9227) 0.66 mg/dL 0.61-1.24 The creatinine method used has been calibrated to be traceable to Isotope dilution Mass Spectrometry (IDMS). For more information: www.nkdep.nih.gov Estimated glomerular filtration rate (GFR) determinati on (test code = 41902-6) >90 mL =/>90 FOR CHRONIC KIDNEY D [...] mg/dL 8.5-10.5 L Primary Language EnglishGlucose blood jdgmbhxlxun3814-63-44 19:54:00* Test Item Value Reference Range Interpretation Comments Glucose blood fingerstick (test code = JTC8732) 184 mg/dL 65-120 H Glucose blood csheevhxacv4417-66-23 17:43:00* Test Item Value Reference Range Interpretation Comments Glucose blood fingerstick (test code = XGR2302) 129 mg/dL 65-120 H Glucose blood cpjkjoyslze7482-52-91 17:43:00* Test Item Value Reference Range Interpretation Comments Glucose blood fingerstick (test code = RQV4431) 236 mg/dL 65-120 H Basic Metabolic Zhbxb7102-02-88 16:52:00* Test Item Value Reference Range Interpretation Comments Sodium level (test code = AOK5335) 129 meq/L 135-145 L 2.7Repeated & Called to PATRICIA MUHAMMAD RN on 06/18/17 at 1652 by REBECCA Was there 100% Readback? Y Chloride measurement (test code = MJL7439) 101 meq/L 101-111 Bicarbonate (test code = CO2) 17 meq/L 21-31 L Glucose measurement (test code = WUU7440) 201 mg/dL 65-120 H ADA Clinical Practice Recommendation: <100 mg/dl = Normal Fasting Glucose BUN Bld-mCnc (test code = 6299-2) 11 mg/dL 6-20 Creatinine measurement (test code = YUS3048) 0.70 mg/dL 0.61-1.24 The creatinine method used has been calibrated to be traceable to Isotope dilution Mass Spectrometry (IDMS). For more information: www.nkdep.nih.gov Estimated glomerular filtration rate (GFR) determinati on (test code = 81019-3) >90 mL =/>90 FOR CHRONIC KIDNEY D [...] mg/dL 8.5-10.5 L Primary Language EnglishGlucose blood gkzglgsdnvc3130-12-19 15:20:00* Test Item Value Reference Range Interpretation Comments Glucose blood fingerstick (test code = EWC7465) 208 mg/dL 65-120 H Glucose blood nefojvuuybq5779-89-51 14:12:00* Test Item Value Reference Range Interpretation Comments Glucose blood fingerstick (test code = RIH3846) 199 mg/dL 65-120 H Glucose blood ozdylsmqzcs1293-94-43 14:03:00* Test Item Value Reference Range Interpretation Comments Glucose blood fingerstick (test code = QRX8356) 250 mg/dL 65-120 H Glucose blood qhgzvlserhv4284-25-18 14:02:00* Test Item Value Reference Range Interpretation Comments Glucose blood fingerstick (test code = XDH3308) 241 mg/dL 65-120 H Glucose blood ouxulymabqq6757-41-80 14:02:00* Test Item Value Reference Range Interpretation Comments Glucose blood fingerstick (test code = VVL2195) 224 mg/dL 65-120 H Urine dipstick testing at ybnpm-xa-wsog6928-08-08 13:41:00* Test Item Value Reference Range Interpretation Comments Urine specific gravity measurement (test code = 2965-2) 1.010 1.005-1.030 Urine glucose detection (test code = 2349-9) 1+ NEG Urine Ketones (test code = UKET) 3+ NEG AA Urine blood detection (test code = 93835-5) Negative NEG Urine pH (test code = 2756-5) 6.0 5.0-7.0 Urinalysis with microscopy (test code = 35186-3) 1+ NEG AA Urine nitrate measurement (test code = 38471-5) NEGATIVE NEG Urine Leukocyte Esterase (test code = UESTR) NEGATIVE NEG Comment Bed:4 AMILCAR NEG 1+ 3+ NEG NEG 6.0 1+ Y 1.010Basic Metabolic Ffcyd4160-21-90 13:00:00* Test Item Value Reference Range Interpretation Comments Sodium level (test code = IOL0999) 126 meq/L 135-145 L 3.3 Chloride measurement (test code = MQK0924) 100 meq/L 101-111 L Bicarbonate (test code = CO2) 11 meq/L 21-31 LL Repeated, Pt history, Broadcast at 1300 by [facility] Glucose measurement (test code = NBE7877) 269 mg/dL 65-120 H ADA Clinical Practice Recommendation: <100 mg/dl = Normal Fasting Glucose BUN Bld-mCnc (test code = 6299-2) 12 mg/dL 6-20 Creatinine measurement (test code = CDI5660) 0.81 mg/dL 0.61-1.24 The creatinine method used has been calibrated to be traceable to Isotope dilution Mass Spectrometry (IDMS). For more information: www.nkdep.nih.gov Estimated glomerular filtration rate (GFR) determinati on (test code = 81704-7) >90 mL =/>90 FOR CHRONIC KIDNEY D [...] = CA) 8.5 mg/dL 8.5-10.5 Comment Bed:4Acetone Dozau2399-49-16 12:57:00* Test Item Value Reference Range Interpretation Comments Acetone Level (test code = ACET) MODERATE NEG AA Comment Bed:4Lactic acid gatshywszyo0400-73-87 12:45:00* Test Item Value Reference Range Interpretation Comments Lactic acid measurement (test code = LYV4073) 16.4 mg/dL 4.5-19.8 Arterial blood gas kgzfcfeicyi4185-06-27 12:01:00* Test Item Value Reference Range Interpretation Comments Blood gas pH assay (test code = 64005-4) 7.26 7.35-7.45 L POSITIVE ID//ALLENS TEST; FIO2 21%; RIGHT RADIAL STICK.@Other Dr: Repeated & Called to JANAK DAIRY FEED MIXING OPERATOR on 06/18/17 at 1200 by [employer] SolutionsCarissa Was there 100% Readback? Blood partial pressure of carbon dioxide measurement ( test code = 20630-7) 24.4 mm[Hg] 35-45 L Blood partial pressure [...] (test code = ABGFIO2) 21.0 % Comment Bed:4Basic Metabolic Hiios2534-06-45 11:39:00* Test Item Value Reference Range Interpretation Comments Sodium level (test code = PET8656) 124 meq/L 135-145 L 3.2 Chloride measurement (test code = PPH9682) 95 meq/L 101-111 L Bicarbonate (test code = CO2) 10 meq/L 21-31 LL Repeated & Called to ANA BAILEY RN on 06/18/17 at 1139 by [employer] Was there 100% Readback? YES Glucose measurement (test code = POB7745) 310 mg/dL 65-120 H ADA Clinical Practice Recommendation: <100 mg/dl = Normal Fasting Glucose BUN Bld-mCnc (test code = 6299-2) 13 mg/dL 6-20 Creatinine measurement (test code = ZSC4809) 0.89 mg/dL 0.61-1.24 The creatinine method used has been calibrated to be traceable to Isotope dilution Mass Spectrometry (IDMS). For more information: www.nkdep.nih.gov Estimated glomerular filtration rate (GFR) determinati on (test code = 04044-2) >90 mL =/>90 FOR CHRONIC KIDNEY D [...] 8.5-10.5 HEMOLYZED Specimen, recollect request called to [employer] on 06/18/17 at 1011 by [employer] label to LERLiver (Hepatic) Mpctazxt5814-85-89 11:39:00* Test Item Value Reference Range Interpretation Comments Aspartate aminotransferase (AST) measurement (test code = IM O0002) 16 [iU]/L 10-42 ALT/SGPT (test code = SGPT) 13 [iU]/L 10-60 Alkaline Phosphatase (test code = ALK) 183 [iU]/L 42-121 H Bilirubin total (test code = KMS7584) 1.2 mg/dL 0.3-1.2 Bilirubin direct (test code = 1968-7) 0.1 mg/dL 0-0.2 Serum total protein measurement (test code = 2885-2) 8.2 g/dL 6 .0-8.3 Albumin measurement (test code = PWG4805) 4.5 g/dL 3.2-5.5 Globulin (test code = GLOB) 3.7 g/dL 2.3-3.5 H Albumin/Globulin Ratio (test code = A/G) 1.2 1.1-1.8 HEMOLYZED Specimen, recollect request called to [employer] on 06/18/17 at 1011 by [employer] label to LERCreatine Viomtzvhwnqpj0578-62-84 11:39:00* Test Item Value Reference Range Interpretation Comments Creatine Phosphokinase (test code = CPK) 40 [iU]/L 22-269 HEMOLYZED Specimen, recollect request called to ANA on 06/18/17 at 1011 by [employer] Print label to LERCKMB Creatine Kinase CL1942-56-11 11:39:00* Test Item Value Reference Range Interpretation Comments CKMB Creatine Kinase MB (test code = CKMB) 1.2 ng/mL 0.3-4.0 HEMOLYZED Specimen, recollect request called to ANA on 06/18/17 at 1011 by [employer] Print label to LERMagnesium jfkyusmedtj3449-41-45 11:39:00* Test Item Value Reference Range Interpretation Comments Magnesium measurement (test code = 84399-5) 2.1 mg/dL 1.8-2.5 HEMOLYZED Specimen, recollect request called to ANA on 06/18/17 at 1011 by [employer] Print label to LERBrain natriuretic peptide (BNP) [...] Blood by Coagulation assay (test code = 78175-0) 0.88 Monitor pts using INR value (not prothrombin time) INR Coumadin Therapy: Low Range (prophylaxis) 2.0-3.0 High Range (high risk of clot formation) 2.5-3.5 Test Ordered to Rule Out VTE/DVT? N Test Ordered to Rule Out VTE/DVT? NPTT, Activated Partial [id number] 10:11:00* Test Item Value Reference Range Interpretation Comments PTT, Activated Partial Thromb (test code = PTT) 25.6 s 24.3-3 6.9 Test Ordered to Rule Out VTE/DVT? N Test Ordered to Rule Out VTE/DVT? NComplete blood count (CBC) with automated white blood cell (WBC) [id number] 10:06:00* Test Item Value Reference Range Interpretation Comments White blood cell count (test code = SZX5579) 13.0 4.3-10.9 H Blood erythrocytes count (number/volume) (test code = 36295- 1) 5.81 M/ul 4.33-5.43 H Hemoglobin measurement (test code = JAV0827) 19.2 g/dL 13.6-17.9 H Blood hematocrit (volume fraction) (test code = 19968-2) 55.3 % 39.6-49.0 H MCV (test code = 89181-8) 95.3 fL 80-100 MCH (test code = 15464-5) 33.1 pg 27.0-35.0 MCHC (test code = MCHC) 34.7 g/dL 32.0-36.0 Platelets (test code = PLT) 279 152-406 Red Cell Distribution Width (test code = RDW) 13.4 % 12.1-15. 2 Blood platelet mean volume (test code = 45386-0) 8.5 fL 7.6-1 1.3 Neutrophils % (test code = SID%) 83.6 % 41.7-73.7 H Lymphocytes/leuk NFr Bld (test code = 00233-2) 9.9 % 15.3-44 .8 L Monocyte percentage (test code = 5905-5) 5.9 % 3.3-12.3 Eosinophil % (test code = 713-8) 0.0 % 0-4.4 Basophil % (test code = 78546-7) 0.6 % 0-1.3 Absolute neutrophil count (test code = 751-8) 10.9 1.8-8.0 H Absolute lymphocyte count (test code = 32153-5) 1.3 0.7-4. 9 Absolute monocyte count (test code = 742-7) 0.8 0.1-1.3 Absolute Eosinophils (test code = EOA) 0.0 0-0.5 Absolute Basophils (test code = BASA) 0.1 0-0.5 CHEST SINGLE (PORTABLE) [facility] [address] [place] [address] Patient Name: KEVIN LOMELI MR #: [id number] : 1995 Age/Sex: 22/M Req #: [id number] Adm Physician: Ordered by: SAMUEL ARIAS MD Report #: [id number] Location: ER Room/Bed: Procedure: [id number] DX/CHEST SINGLE (PORTABL E) Exam Date: 01/26/18 [...] on 1951 COPY TO: SAMUEL ARIAS MD ABDOMEN COMPLETE [address] [address] Patient Name: KEVIN LOMELI MR #: [id number] : 0 1995 Age/Sex: 22/M Req #: [id number] Adm Physician: ANA CAMEJO MD Ordered by: Yordy Page NP Report #: [id number] Locati on: MED/SURG Room/Bed: 106-1 Procedure: [id number] US/ US ABDOMEN COMPLETE Exam Date: 11/10/17 [...] lly Signed By: EDUARD DRAKE MD on 11/10/171400 Transcribed By: GABY on 11/10/17 140 COPY TO: YORDY PAGE DAIRY FEED MIXING OPERATOR CHEST SINGLE (PORTABLE) [place] [address] Patient Name: KEVIN LOMELI MR #: [id number] : 0 1995 Age/Sex: 22/M Req #: [id number] Adm Physician: Ordered by: OLIVA JACOB MD Report #: [id number] Location: Room/Bed: Procedure: [id number] DX/CHEST SINGLE (PORTABLE) Exa m Date: 11/08/17 [...]
[2020-07-17 15:10] LABS: ALANINE AMINOTRANSFERASE 21 IU/L (0-55); ALBUMIN 5.4 g/dL (3.5-5.0); ALBUMIN/GLOBULIN RATIO 1.7 (0.8-2.0); ALKALINE PHOSPHATASE 168 IU/L (40-150); BLOOD UREA NITROGEN 46 mg/dL (7-26); BUN/CREATININE RATIO 21 (6-25); CALCIUM 8.7 mg/dL (8.4-10.2); CHLORIDE 82 mmol/L (98-107); CREATININE, SERUM 2.14 mg/dL (0.72-1.25); EST GLOMERULAR FILTRATION RATE 45 ML/MIN (60-); POTASSIUM 5.8 mmol/L (3.5-5.1)
[2020-07-17 15:14] LABS: ANION GAP 37.8 mmol/L (8-16)
[2020-07-17 15:15] LABS: CARBON DIOXIDE < 5 mmol/L (22-29); SODIUM 119 mmol/L (136-145)
[2020-07-17 15:16] LABS: GLUCOSE 675 mg/dL (74-118)
[2020-07-17] MEDS ORDERED: POTASSIUM CHLORIDE 20MEQ/100ML 200 ML IV PRN (15:45)
[2020-07-17] MEDS ORDERED: SODIUM CHLORIDE 0.9% IV SCH ×2 (15:45)
[2020-07-17] MEDS ORDERED: MAGNESIUM SULF 1GRAM/DEXTROSE 100 ML IV PRN (15:45)
[2020-07-17] MEDS ORDERED: [UNRECOGNIZED DRUG - OTHER] IV SCH ×2 (15:45)
[2020-07-17] MEDS ORDERED: SODIUM CHLORIDE 0.9% 1000ML 1,000 ML IV SCH (15:45)
[2020-07-17] MEDS ORDERED: INSULIN REGULAR IV SCH ×2 (15:45)
[2020-07-17] MEDS ORDERED: HUMAN IV SCH ×2 (15:45)
[2020-07-17] MEDS ORDERED: CEFTRIAXONE SOD 1 GM VIAL IM ONE (15:45)
[2020-07-17] MEDS ORDERED: DEXTROSE 5%/0.45% SOD CHL 1,000 ML IV SCH (15:45)
--- OUTSIDE RECORDS SUMMARY | 2020-07-17 15:50 | XMS REPORT | Clinical Summary ---
Author Author DANA [facility] Organization [facility] Address Unknown Phone Unavailable Care Team Providers Care Gas Stove Servicer Helper Name Role Phone Pcp, No PCP Unavailable [...] Taken Vital Sign Reading 10/28/2019 12:34 PM COIL CONNECTOR REPAIRER Blood Pressure 114/73 10/28/2019 12:34 PM COIL CONNECTOR REPAIRER Pulse 79 10/28/2019 12:34 PM COIL CONNECTOR REPAIRER Temperature 35.9 C (96.7 F) 10/28/2019 12:34 PM COIL CONNECTOR REPAIRER Respiratory Rate 18 10/28/2019 12:34 PM COIL CONNECTOR REPAIRER Oxygen Saturation 100% - Inhaled Oxygen - Concentration 10/28/2019 5:36 AM COIL CONNECTOR REPAIRER Weight 59 kg (130 lb 1.1 oz) 10/28/2019 12:00 AM COIL CONNECTOR REPAIRER Height 180.3 cm (5' 11") 10/28/2019 5:36 AM COIL CONNECTOR REPAIRER Body Mass Index 18.14 Plan of Treatment Not on file Procedures Comments Procedure Name Priority Date/Time Associated Diag nosis RHYTHM STRIP - SCAN 10/30/2019 9:11 AM COIL CONNECTOR REPAIRER POCT-GLUCOSE METER Routine 10/28/2019 12:35 PM COIL CONNECTOR REPAIRER POCT-GLUCOSE METER Routine 10/28/2019 8:57 AM COIL CONNECTOR REPAIRER MAGNESIUM Routine 10/28/2019 4:59 AM COIL CONNECTOR REPAIRER BASIC METABOLIC PANEL (7) Routine 10/28/2019 4:59 AM COIL CONNECTOR REPAIRER MAGNESIUM STAT 10/28/2019 4:59 AM COIL CONNECTOR REPAIRER POCT-GLUCOSE METER Routine 10/27/2019 10:23 PM COIL CONNECTOR REPAIRER POCT-GLUCOSE METER Routine 10/27/2019 5:18 PM COIL CONNECTOR REPAIRER POCT-GLUCOSE METER Routine 10/27/2019 12:21 PM COIL CONNECTOR REPAIRER POCT-GLUCOSE METER Routine 10/27/2019 11:52 AM COIL CONNECTOR REPAIRER POCT-GLUCOSE METER Routine 10/27/2019 10:19 AM COIL CONNECTOR REPAIRER POCT-GLUCOSE METER Routine 10/27/2019 9:10 AM COIL CONNECTOR REPAIRER POCT-GLUCOSE METER Routine 10/27/2019 7:56 AM COIL CONNECTOR REPAIRER POCT-GLUCOSE METER Routine 10/27/2019 6:13 AM COIL CONNECTOR REPAIRER POCT-GLUCOSE METER Routine 10/27/2019 4:59 AM COIL CONNECTOR REPAIRER RAPID DRUG SCREEN, URINE Routine 10/27/2019 4:59 AM COIL CONNECTOR REPAIRER URINALYSIS W/ REFLEX Routine 10/27/2019 URINE CULTURE 4:59 AM COIL CONNECTOR REPAIRER BLOOD CULTURE Routine 10/27/2019 4:56 AM COIL CONNECTOR REPAIRER CBC W/PLT COUNT & AUTO Routine 10/27/2019 DIFFERENTIAL 4:24 AM COIL CONNECTOR REPAIRER KETONE, BLOOD Routine 10/27/2019 4:24 AM COIL CONNECTOR REPAIRER BLOOD GAS, VENOUS Routine 10/27/2019 4:24 AM COIL CONNECTOR REPAIRER CBC W/PLT COUNT & AUTO Routine 10/27/2019 DIFFERENTIAL 4:24 AM COIL CONNECTOR REPAIRER MAGNESIUM Routine 10/27/2019 4:24 AM COIL CONNECTOR REPAIRER BASIC METABOLIC PANEL (7) Routine 10/27/2019 4:24 AM COIL CONNECTOR REPAIRER POCT-GLUCOSE METER Routine 10/27/2019 2:32 AM COIL CONNECTOR REPAIRER POCT-GLUCOSE METER Routine 10/27/2019 1:31 AM COIL CONNECTOR REPAIRER BLOOD GAS, VENOUS STAT 10/27/2019 12:41 AM COIL CONNECTOR REPAIRER CBC W/PLT COUNT & AUTO STAT 10/27/2019 DIFFERENTIAL 12:29 AM COIL CONNECTOR REPAIRER CBC W/PLT COUNT & AUTO STAT 10/27/2019 DIFFERENTIAL 12:29 AM COIL CONNECTOR REPAIRER HEPATIC FUNCTION PANEL STAT 10/27/2019 12:29 AM COIL CONNECTOR REPAIRER TROPONIN I Routine 10/27/2019 12:29 AM COIL CONNECTOR REPAIRER HEMOGLOBIN A1C Routine 10/27/2019 12:29 AM COIL CONNECTOR REPAIRER TSH/FREE T4 IF INDICATED Routine 10/27/2019 12:29 AM COIL CONNECTOR REPAIRER LIPASE Routine 10/27/2019 12:29 AM COIL CONNECTOR REPAIRER AMYLASE Routine 10/27/2019 12:29 AM COIL CONNECTOR REPAIRER LACTIC ACID, VENOUS Routine 10/27/2019 12:29 AM COIL CONNECTOR REPAIRER MAGNESIUM Routine 10/27/2019 12:29 AM COIL CONNECTOR REPAIRER BASIC METABOLIC PANEL (7) Routine 10/27/2019 12:29 AM COIL CONNECTOR REPAIRER KETONE, BLOOD STAT 10/27/2019 12:29 AM COIL CONNECTOR REPAIRER PHOSPHORUS STAT 10/27/2019 12:29 AM COIL CONNECTOR REPAIRER MAGNESIUM STAT 10/27/2019 12:29 AM COIL CONNECTOR REPAIRER POTASSIUM STAT 10/27/2019 12:29 AM COIL CONNECTOR REPAIRER BASIC METABOLIC PANEL (7) STAT 10/27/2019 12:29 AM COIL CONNECTOR REPAIRER BLOOD CULTURE Routine 10/27/2019 12:29 AM COIL CONNECTOR REPAIRER POCT-GLUCOSE METER Routine 10/27/2019 12:01 AM COIL CONNECTOR REPAIRER after 07/17/2019 Results * RHYTHM STRIP - SCAN (10/30/2019 9:11 AM COIL CONNECTOR REPAIRER) Narrative Performed At This result has an attachment that is n ot available. * POC-Glucose meter (10/28/2019 12:35 PM COIL CONNECTOR REPAIRER) Only the most recent of 14 results within the time period is included. POC-Glucose Meter 159 (H)Comment: : TESTED AT 70 - 110 mg/dL [facility] [address]: Rn Community [facility]el[employer] Internship ID = [id number] for MILTON SHARPE Specimen Blood Performing Organization Address [facility] one Number [address] [facility] * Magnesium (10/28/2019 4:59 AM COIL CONNECTOR REPAIRER) Only the most recent of 5 results within the time period is included. Magnesium 2.1 1.6 - 2.6 mg/dL [facility] Specimen Blood Performing Organization Address [facility] one Number [place] [address] [facility] * Basic Metabolic Panel (10/28/2019 4:59 AM COIL CONNECTOR REPAIRER) Only the most recent of 4 results within the time period is included. Sodium 135 (L) 136 - 145 meq/L [facility] Potassium 3.8 3.5 - 5.1 meq/L [facility] Chloride 101 98 - 107 meq/L [facility] CO2 28 22 - 29 meq/L [facility] BUN 13 7 - 21 mg/dL [facility] Creatinine 0.71 0.57 - 1.25 mg/dL [facility] Glucose 98 70 - 105 mg/dL [facility] Calcium 8.5 8.4 - 10.2 mg/dL [facility] EGFR 164Comment: ESTIMATED GFR IS mL/min/1.73 sq m [facility] NOT ACCURATE CREATININE [facility] CLEARANCE IN PREDICTING GLOMERULAR FILTRATION RATE. ESTIMATED GFR IS NOT APPLICABLE FOR DIALYSIS PATIENTS. Specimen Blood Performing Organization Address [facility] one Number [address] [facility] * Urinalysis w/Microscopic + Reflex to Culture (10/27/2019 4:59 AM COIL CONNECTOR REPAIRER) Color, UA Yellow [facility] Clarity, UA Clear [facility] Specific [place], UA 1.012 1.001 - 1.035 [facility] pH, UA 7.0 5.0 - 8.0 [facility] Protein, UA Negative Negative [facility] Glucose, UA >1000 mg/dL (A) Negative [facility] Ketones, UA 40 mg/dL (A) Negative [facility] Bilirubin, UA Negative Negative [facility] Blood, UA Negative Negative [facility] Nitrite, UA Negative Negative [facility] Leukocytes, UA Negative Negative [facility] Urobilinogen, UA 3.0 (H) 0.2 - 1.0 mg/dL [facility] RBC, UA Comment: RBC:0-1/HPF [facility] WBC, UA Comment: WBC:1-2/HPF [facility] Specimen Source [facility] Specimen Urine Performing Organization Address City/State/Zipcode Ph one Number [place] [address] [facility] * Rapid drug screen, urine (10/27/2019 4:59 AM COIL CONNECTOR REPAIRER) Barbiturate Screen Negative Negative [facility] Benzodiazepine Screen Negative Negative [facility] Cocaine (Metab.) Screen Negative Negative [facility] Methadone Screen Negative Negative [facility] Opiate Screen Negative Negative [facility] Cannabinoid Screen Positive (A) Negative [facility] Amph/Methamph Screen Positive (A) Negative [facility] Phencyclidine Screen Negative Negative [facility] Specimen Urine Narrative Performed At [facility] Cocaine 300 ng/mL [facility] Ysilpnxwawi10 n g/mL Uahbvikrsndkle348 ng/mL Barbiturate 200 ng/ mL Bnegbzwthazkz31 ng/ mL Opiate3 00 ng/mL Methadone 300 n g/mL Amphetamine/ 1000 ng/mL Methamphetamine This assay provides an unconfirmed qual itative test result for the clinical management of patients in emergency sit uations. Chain of custody not maintained. Some fbys-twp-fqmbrkj medications, as w ell as adulterants, may cause inaccurate results. Clinical correlation should be applied. A more comprehensive drug screen or confirmation of a detected dr brandon may be performed upon request. Performing Organization Address [facility] Ph one Number [place] [address] [facility] * Blood Culture - Routine (Left Venipuncture) (10/27/2019 4:56 AM COIL CONNECTOR REPAIRER) Only the most recent of 2 results within the time period is included. Result No growth in 5 days [facility] Specimen Blood Performing Organization Address [facility] Ph one Number [address] [facility] * CBC with platelet count + automated diff (10/27/2019 4:24 AM COIL CONNECTOR REPAIRER) Only the most recent of 2 results within the time period is included. WBC 7.7 3.5 - 10.5 K/L [facility] RBC 4.07 (L) 4.63 - 6.08 M/L [facility] Hemoglobin 12.7 (L) 13.7 - 17.5 GM/DL [facility] Hematocrit 34.1 (L) 40.1 - 51.0 % [facility] MCV 83.8 79.0 - 92.2 fL [facility] MCH 31.2 25.7 - 32.2 pg [facility] MCHC 37.2 (H) 32.3 - 36.5 GM/DL [facility] RDW 11.4 (L) 11.6 - 14.4 % [facility] Platelets 240 150 - 450 K/CU MM [facility] MPV 9.4 9.4 - 12.4 fL [facility] nRBC 0 0 - 0 /100 WBC [facility] % Neutros 56 % [facility] % Lymphs 36 % [facility] % Monos 6 % [facility] % Eos 1 % [facility] % Baso 0 % [facility] # Neutros 4.34 1.78 - 5.38 K/L [facility] # Lymphs 2.80 1.32 - 3.57 K/L [facility] # Monos 0.44 0.30 - 0.82 K/L [facility] # Eos 0.07 0.04 - 0.54 K/L [facility] # Baso 0.02 0.01 - 0.08 K/L [facility] Immature 0 0 - 1 % [facility] Granulocytes-Relative [facility] Specimen Blood Performing Organization Address City/State/Zipcode Ph one Number [facility] [address] [place], [place] [address] [facility] * Blood gas, venous (10/27/2019 4:24 AM COIL CONNECTOR REPAIRER) Only the most recent of 2 results within the time period is included. , Julio 7.47 (H) 7.32 - 7.42 [facility] pCO2, Julio 42 41 - 51 mmHg [facility] pO2, Julio 61 (H) 25 - 40 mmHg [facility] O2 Sat, Julio 92.7 (H) 40.0 - 70.0 % [facility] HCO3, Julio 30 (H) 21 - 29 mmol/L [facility] Base Excess, Julio 5.3 (H) -2.0 - 3.0 mmol/L [facility] Patient Temperature 37.0 C [facility] FIO2 21.0 % [facility] Specimen Blood Performing Organization Address [facility] one Number [place] [address] [phone] [place] [address] * Ketone, blood (10/27/2019 4:24 AM COIL CONNECTOR REPAIRER) Only the most recent of 2 results within the time period is included. Ketones, Blood 0.2 <0.4 mmol/L [facility] Specimen Blood Performing Organization Address City/[facility] one Number [place] [address] [facility] * TSH/Free T4 If Indicated (10/27/2019 12:29 AM COIL CONNECTOR REPAIRER) TSH 0.97 0.35 - 4.94 uIU/mL [facility] Specimen Blood Performing Organization Address City/[facility] Ph one Number [place] [address] [facility] * Troponin I (10/27/2019 12:29 AM COIL CONNECTOR REPAIRER) Troponin I <0.01 0.00 - 0.03 ng/mL [facility] Specimen Blood Narrative Performed At Troponin I (TnI) levels must be interpreted in the co ntext of the presenting [facility] symptoms and the clinical findings. Elevated TnI leve ls indicate myocardial [facility] damage, but are not specific for ischem ic heart disease. Elevated TnI levels are seen in patients with other cardiac con ditions (including myocarditis and congestive heart failure), and slight T nI elevations occur in patients with other conditions, including sepsis, albin al failure, acidosis, acute neurological disease, and persistent tachyarrhythmia . Performing Organization Address City/[facility] Ph one Number [address] [facility] * Lactic acid, venous (10/27/2019 12:29 AM COIL CONNECTOR REPAIRER) Lactate, Venous 1.8 0.5 - 2.2 mmol/L [facility] Specimen Blood Performing Organization Address [facility] Ph one Number [address] [facility] * Potassium (10/27/2019 12:29 AM COIL CONNECTOR REPAIRER) Potassium 2.7 (L) 3.5 - 5.1 meq/L [facility] Specimen Blood Performing Organization Address [facility] Ph one Number [address] [facility] [place] * Phosphorus (10/27/2019 12:29 AM COIL CONNECTOR REPAIRER) Phosphorus 3.2 2.3 - 4.7 mg/dL [facility] Specimen Blood Performing Organization Address City/[facility] Ph one Number [address] [facility] * Lipase (10/27/2019 12:29 AM COIL CONNECTOR REPAIRER) Lipase 7 (L) 8 - 78 U/L [facility] Specimen Blood Performing Organization Address City/[facility] Ph one Number [facility] [address] [facility] * Hemoglobin A1c (10/27/2019 12:29 AM COIL CONNECTOR REPAIRER) Hemoglobin A1C 8.7 (H) 4.3 - 6.1 % [facility] Specimen Blood Performing Organization Address City/[facility] Ph one Number [address] [facility] * Amylase (10/27/2019 12:29 AM COIL CONNECTOR REPAIRER) Amylase 28 25 - 125 U/L [facility] Specimen Blood Performing Organization Address [facility] one Number [address] [facility] * Hepatic function panel (10/27/2019 12:29 AM COIL CONNECTOR REPAIRER) Protein, Total 6.9 6.0 - 8.3 gm/dL [facility] Albumin 4.4 3.5 - 5.0 g/dL [facility] Total Bilirubin 0.4 0.2 - 1.2 mg/dL [facility] Bilirubin, Direct 0.2 0.1 - 0.5 mg/dL [facility] Alkaline Phosphatase 81 40 - 150 U/L [facility] AST 15 5 - 34 U/L [facility] ALT 13 6 - 55 U/L [facility] Specimen Blood Performing Organization Address [facility] Ph one Number [address] [facility] after 07/17/2019 Insurance Payer Benefit Subscriber ID Type Phone Address Plan / Group [employer] - MGD CARE [employer] COH xxxxxxxxxxx HMO/POS NETWORK BLUE CROSS/BLUE SHIELD BCBS PPO xxxxxxxxxxxx PPO [address] [place] [address] CHOICE [phone] Advance Directives For more information, please contact: [facility] [address] [place] [address] Date Inactivated Comments Code Status Date Activated 10/28/2019 8:20 PM Full Code 10/26/2019 11:48 PM This code status was determined by: Patient 03/11/2018 4:41 PM Full Code 03/09/2018 1:27 AM This code status was determined by: Patient
[2020-07-17] MEDS ORDERED: SODIUM CHLORIDE 0.9% 1000ML 1,000 ML ONE (15:52)
[2020-07-17] MEDS ORDERED: INSULIN REGULAR, HUMAN 100 UNIT/1 ML 3ML VIAL ONE (15:52)
--- OUTSIDE RECORDS SUMMARY | 2020-07-17 15:53 | XMS REPORT | Continuity of Care Document ---
Author Author [facility] t Organization [facility] Address [address] [place] [address] Phone Unavailable Care Team Providers Care Canning Machine Operator Name Role Phone NO, PCP PCP Unavailable Gemini Pozo Attphys Garry Smith MD, Aracelis Attphys ISA PIEDRA Attphys Unavailable Esther De Leon MD, Isa Attphys [phone] Zenaida DOWLING, Veronica Attphys Chelsea DOWLING, Edith Hassan Attphys Sixto Stewart [...] Expiration Date S eli Covid19 Hrsa Uninsured [id number] I [facility] [id number] [facility] MGD [facility] NETWORKxxxxxxxxxxxHMO/POS xxxxxx xxxxx [facility] BLUE CROSS/BLUE SHIELDBCBS PPO POS EPO C [id number], [place] [address] xxxxxxxxxxxx [facility] [id number] 2018 00:00:00 [facility] [id number] 2018 00:00: 00 [facility] [employer] [facility] Ppo [id number] 2017 00:00:00 [facility] Problems Condition Name Condition Details Condition Category Status Onset Date Resolution Date Last Treatment Date Treating Clinician Comments Source Hypoglycemia due to type 1 diabetes mellitus Hypoglyce bruce due to type 1 diabetes mellitus Disease Active 2019-10-28 00:00:00 [facility] Gastroparesis Gastroparesis Disease Active 2019-10-27 00:00:00 [facility] Methamphetamine abuse Methamphetamine abuse Disease Active 201 07-23-17 00:00:00 [facility] Marijuana abuse Marijuana abuse Disease Active 2019-10-27 00:00:00 [facility] Medically noncompliant Medically noncompliant Disease Active 2019-10-27 00:00:00 [facility] Diabetic ketoacidosis Diabetic ketoacidosis Disease Active 201 07-23-16 00:00:00 [facility] DKA (diabetic ketoacidoses) DKA (diabetic ketoacidoses) Disease Active 2018-03-09 00:00:00 [facility] High anion gap metabolic acidosis High anion gap metabolic acido sis Disease Active 2018-03-09 00:00:00 [facility] Hyperglycemia Hyperglycemia Disease Active 2018-03-09 00:00:00 [facility] Diabetic ketoacidosis DKA (diabetic ketoacidoses) Problem Acti ve 2015-12-28 00:00:00 [facility] Diabetic ketoacidosis Diabetic keto-acidosis Problem Active 26-07-09 00:00:00 [facility] Dehydration Dehydration Problem Active [facility] Noncompliance with medication regimen Non compliance w medic ation regimen Problem Active [facility] Vomiting Vomiting Problem Active [facility] Urinary tract infection UTI (urinary tract infection) Problem Active [facility] Tachycardia Problem Active [facility] Allergies, Adverse Reactions, Alerts Allergy Name Allergy Type Status Severity Reaction(s) Onset Date Inacti ve Date Treating Clinician Comments Source No Known Allergies DA Active U 2019-01-03 00:00:00 [facility] No Known Allergies DA Active U 2018-10-05 00:00:00 [facility] Family History Family Member Diagnosis Comments Start Date Stop Date Source Natural father Diabetes [facility] Natural mother Arthritis [facility] Social History Social Habit Start Date Stop Date Quantity Comments Source Sex Assigned At [facility] Cigarettes smoked current (pack per day) - Reported 00:00:00 2018-03-09 00:00:00 [facility] Smoking Status Start Date Stop Date Source Current every day smoker 2018-03-09 00:00:00 [facility] Medications Ordered Medication Name Filled Medication Name Start Date Stop Da te Current Medication? Ordering Clinician Indication Dosage Frequency Signature (SIG) Comments Components Source ketone blood test Strp 2019-10-28 00:00:00 Yes 1{strip} 1 strip by Miscellaneous route as needed. [facility] glucagon 1 mg injection 2019-10-28 00:00:00 2019-10-28 23:59:00 No 1mg Inject 1 mg intramuscularly once for 1 dose. [facility] Insulin Detemir (Levemir) 100 Unit/1 Ml VIAL Insulin D etemir (Levemir) 100 Unit/1 Ml VIAL 2018-07-26 10:21:00 Yes 14 Every 12 Hours [facility] Famotidine Famotidine 2018-07-26 10:21:00 2018-09-09 00:00:00 No 20 Twice Daily Before Meals [facility] insulin NPH 100 unit/mL (3 mL) InPn 2018-03-09 01:31:53 Yes type 1 diabetes mellitus 15U Q.5D Inject 15 Units subcutaneously 2 (two) times daily. [facility] insulin regular (HUMULIN R,NOVOLIN R) 100 unit/mL injection 2018-03-09 01:31:10 Yes Inject sub cutaneously 3 (three) times daily before meals Use as directed. Sliding scale . [facility] Insulin Human Nph (Humulin N) 100 Units/Ml ML Insulin Human Nph (Humulin N) 100 Units/Ml ML 2017-11-13 08:18:00 2018-05-16 00:00:00 No 15 Every 12 Hours [facility] Insulin Regular, Human (Humulin R) 100 Unit/1 Ml VIAL Insulin Regular, Human (Humulin R) 100 Unit/1 Ml VIAL 2017-11-13 08:18:00 2018-05-16 00:00:00 No 0 Before Meals And At Bedtime [facility] Metoclopramide Hcl Metoclopramide Hcl 2017-11-13 08:18:00 00:00:00 No 10 Three Times Daily With Meals as needed f or Nausea And Vomiting [facility] Insulin Detemir Insulin Detemir 2017-01-05 17:35:00 2017-11-13 00:00:00 No 14 Bedtime [facility] Insulin Human Lispro (Humalog) 100 Units/Ml ML Insulin Human Lispro (Humalog) 100 Units/Ml ML 2017-01-05 17:35:00 2017-11-13 00:00:00 No 0 Before Meals And At Bedtime [facility] Insulin Detemir Insulin Detemir 2017-01-05 17:35:00 2017-11-08 00:00:00 No 10 Every Morning [facility] Potassium Chloride (Klor-Con M20) 20 Meq TABCR Potassi um Chloride (Klor-Con M20) 20 Meq TABCR 2017-01-05 17:35:00 2017-11-08 00:00:00 No 20 Use As Directed [facility] Insulin Detemir Insulin Detemir 2016-01-02 14:07:00 2017-11-13 00:00:00 No 10 Every Morning [facility] Insulin Detemir Insulin Detemir 2016-01-02 14:07:00 2017-01-05 00:00:00 No 16 Bedtime [facility] Insulin Detemir (Levemir) 100 Unit/1 Ml VIAL Insulin D etemir (Levemir) 100 Unit/1 Ml VIAL 2016-01-01 10:33:00 2016-01-01 00:00:00 No 1 0 Every Morning [facility] Insulin Detemir (Levemir) 100 Unit/1 Ml VIAL Insulin D etemir (Levemir) 100 Unit/1 Ml VIAL 2016-01-01 10:33:00 2016-01-01 00:00:00 No 16 Bedtime [facility] Insulin Lispro (Humalog) 100 Unit/1 Ml CARTRIDGE Insul in Lispro (Humalog) 100 Unit/1 Ml CARTRIDGE Yes [facility] Metoclopramide Hcl (Reglan) 5 Mg TABLET Metoclopramide Hcl ( Reglan) 5 Mg TABLET Yes 5 Before Meals And At Bedtime [facility] Ondansetron Hcl Ondansetron Hcl Yes 4 Three Times A Day as needed for Nausea And Vomiting [facility] Insulin Glargine (Lantus 3ML Pen) 100 Units/1 Ml INJ I nsulin Glargine (Lantus 3ML Pen) 100 Units/1 Ml INJ 2018-07-26 00:00:00 No 12 Twice A Day [facility] Ondansetron (Zofran Odt) 4 Mg TAB.RAPDIS Ondansetron ( Zofran Odt) 4 Mg TAB.RAPDIS 2018-07-23 00:00:00 No 4 Every 6 Hours [facility] Insulin Detemir (Levemir) 100 Unit/1 Ml VIAL Insulin D etemir (Levemir) 100 Unit/1 Ml VIAL 2018-05-16 00:00:00 No [facility] Insulin Aspart (Novolog) 100 Unit/1 Ml CARTRIDGE Insul in Aspart (Novolog) 100 Unit/1 Ml CARTRIDGE 2016-01-01 00:00:00 No 10 Befo re Meals [facility] Insulin Detemir (Levemir) 100 Unit/1 Ml VIAL Insulin D etemir (Levemir) 100 Unit/1 Ml VIAL 2016-01-01 00:00:00 No 10 Every Mor mis [facility] Insulin Detemir (Levemir) 100 Unit/1 Ml VIAL Insulin D etemir (Levemir) 100 Unit/1 Ml VIAL 2016-01-01 00:00:00 No 16 Bedtime [facility] Insulin Regular, Human (Novolin R) 100 Unit/1 Ml VIAL Insulin Regular, Human (Novolin R) 100 Unit/1 Ml VIAL 2015-07-24 00:00:00 No [facility] Vital Signs Vital Name Observation Time Observation Value Comments Source Body Temperature 2020-06-12 01:03:00 96.7 [degF] [facility] Weight 2020-05-12 19:56:00 145 [lb_av] [facility] BMI (Body Mass Index) 2020-05-12 19:56:00 21.4 kg/m2 [facility] Systolic blood pressure 2019-10-28 12:34:00 114 mm[Hg] [facility] Diastolic blood pressure 2019-10-28 12:34:00 73 mm[Hg] [facility] Heart rate 2019-10-28 12:34:00 79 /min [facility] Body temperature 2019-10-28 12:34:00 35.94 Shaina [facility] Respiratory rate 2019-10-28 12:34:00 18 /min [facility] Oxygen saturation in Arterial blood by Pulse oximetry 2018-11 12:34:00 100 /min [facility] Body weight Measured 2019-10-28 05:36:00 59 kg [facility] BMI 2019-10-28 05:36:00 18.14 kg/m2 [facility] Body height 2019-10-28 00:00:00 180.3 cm [facility] Procedures Procedure Date / Time Performed Performing Clinician [facility] e RHYTHM STRIP - SCAN 2019-10-30 09:11:22 ProviderSylvia [facility] POCT-GLUCOSE METER 2019-10-28 12:35:00 Yonathan Stewart [facility] POCT-GLUCOSE METER 2019-10-28 08:57:00 Yonathan Stewart [facility] BASIC METABOLIC PANEL (7) 2019-10-28 04:59:00 Leatha Green [facility] MAGNESIUM 2019-10-28 04:59:00 Leatha Green [facility] POCT-GLUCOSE METER 2019-10-27 22:23:00 Yonathan Stewart [facility] POCT-GLUCOSE METER 2019-10-27 17:18:00 Yonathan Stewart [facility] POCT-GLUCOSE METER 2019-10-27 12:21:00 Yonathan Stewart [facility] POCT-GLUCOSE METER 2019-10-27 11:52:00 Yonathan Stewart [facility] POCT-GLUCOSE METER 2019-10-27 10:19:00 Diya Estevez i [facility] POCT-GLUCOSE METER 2019-10-27 09:10:00 Isa Piedra [facility] POCT-GLUCOSE METER 2019-10-27 07:56:00 Isa Piedra [facility] POCT-GLUCOSE METER 2019-10-27 06:13:00 [facility]/ REFLEX URINE CULTURE 2019-10-27 04:59:00 Dick Sanders [facility] RAPID DRUG SCREEN, URINE 2019-10-27 04:59:00 Alexsandra Sanders [facility] POCT-GLUCOSE METER 2019-10-27 04:59:00 Isa Piedra [facility] BLOOD CULTURE 2019-10-27 04:56:00 Alexsandra Sanders [facility] BASIC METABOLIC PANEL (7) 2019-10-27 04:24:00 Alexsandra Sanders [facility] MAGNESIUM 2019-10-27 04:24:00 Alexsandra Sanders [facility] BLOOD GAS, VENOUS 2019-10-27 04:24:[address] [facility] KETONE, BLOOD 2019-10-27 04:24:00 Alexsandra Sanders [facility] CBC W/PLT COUNT & AUTO DIFFERENTIAL 2019-10-27 04:24:00 Alexsandra Sanders [facility] POCT-GLUCOSE METER 2019-10-27 02:32:00 [facility]SE [facility]ER 2019-10-27 01:31:00 [facility]EN[facility] 2019-10-27 00:41:[address] [facility] BLOOD CULTURE 2019-10-27 00:29:00 Alexsandra Sanders [facility] POTASSIUM 2019-10-27 00:29:00 Alexsandra Sanders [facility] PHOSPHORUS 2019-10-27 00:29:00 Alexsandra Sanders [facility] KETONE, BLOOD 2019-10-27 00:29:00 Alexsandra Sanders [facility] BASIC METABOLIC PANEL (7) 2019-10-27 00:29:00 Alexsandra Sanders [facility] MAGNESIUM 2019-10-27 00:29:00 Alexsandra Sanders [facility] LACTIC ACID, VENOUS 2019-10-27 00:29:00 Alexsandra Sanders [facility] AMYLASE 2019-10-27 00:29:00 Alexsandra Sanders [facility] LIPASE 2019-10-27 00:29:00 Alexsandra Sanders [facility] TSH/FREE T4 IF INDICATED 2019-10-27 00:29:00 ElbeAlexsandra [facility] HEMOGLOBIN A1C 2019-10-27 00:29[facility] 2019-10-27 00:29[facility]00 [facility] 2019-10-27 00:29:00 Alexsandra Sanders [facility] CBC W/PLT COUNT & AUTO DIFFERENTIAL 2019-10-27 00:29:00 TommyAlexsandra [facility] POCT-GLUCOSE METER 2019-10-27 00:01:00 Isa Piedra [facility] Computed tomography of brain without radiopaque contrast 201 07-23-16 00:00:00 IMELDA DAVID [facility] Encounters Start Date/Time End Date/Time Encounter Type [facility] Encounter ID Source 2020-06-15 00:00:00 2020-06-15 00:00:00 Transition of Care Gemini Pozo [id number] 2020-06-12 02:00:00 2020-06-14 17:44:00 Hospital Encounter Aracelis Alston [facility] ([facility]) [id number] 2020-06-11 22:45:00 2020-06-11 22:45:00 [id number] 2020-05-12 19:50:00 2020-05-12 21:30:00 Departed Emergency Room [facility] [id number] [facility] 2019-10-26 16:48:00 2019-10-26 22:20:00 Departed Emergency Room 1 IMELDA DAVID [facility] [id number] I [facility] 2019-06-22 20:40:00 2019-06-24 12:22:00 Discharged Inpatient 1 OLIVA JACOB [facility] [id number] [facility] 2019-05-19 13:54:00 2019-05-21 12:10:00 Discharged Inpatient 1 KEYON MIRANDA [facility] [id number] [facility] 2019-03-02 19:48:00 2019-03-03 08:28:00 Departed Emergency Room [facility] [id number] [facility] 2019-01-30 20:21:00 2019-02-02 13:21:00 Discharged Inpatient [facility] [id number] [facility] 2018-09-09 23:28:00 2018-09-13 10:43:00 Discharged Inpatient 1 SAMUEL ARIAS [facility] [id number] [facility] 2018-07-23 14:06:00 2018-07-26 12:33:00 Discharged Inpatient [facility] [id number] [facility] 2018-05-16 13:33:00 2018-05-19 09:34:00 Discharged Inpatient [facility] [id number] [facility] 2018-04-23 20:40:00 2018-04-23 22:07:00 Departed Emergency Room [facility] [id number] [facility] 2018-03-08 19:46:00 2018-03-09 00:27:00 Departed Emergency Room [facility] [id number] [facility] 2018-01-26 20:28:00 2018-01-29 15:45:00 Discharged Inpatient ER SAMUEL ARIAS [facility] [id number] [facility] 2017-11-08 23:30:00 2017-11-13 10:52:00 Discharged Inpatient ER ANA CAMEJO [facility] [id number] [facility] Results Test Description Test Time Test Comments Results Result Comments Source Blood leukocytes automated count (number/volume) 2020-06-11 23:10:00 Test Item White Blood Count (test code = 6690-2) 19.34 4.8-10.8 [facility] count (number/volume)2020-06-11 23:10:00* Test Item Value Reference Range Interpretation Comments Red Blood Count (test code = 789-8) 5.16 4.3-5.7 [facility] hemoglobin measurement (moles/volume)2020-06-11 23:10:00* Test Item Value Reference Range Interpretation Comments Hemoglobin (test code = 03395-5) 16.0 14.0-18.0 [facility] blood hematocrit (volume fraction)2020-06-11 23:10:00* Test Item Value Reference Range Interpretation Comments Hematocrit (test code = 4544-3) 42.9 38.2-49.6 [facility] erythrocyte mean corpuscular [id number] 23:10:00* Test Item Value Reference Range Interpretation Comments Mean Corpuscular Volume (test code = 787-2) 83.1 81-99 [facility] mean corpuscular hemoglobin (mass per erythrocyte)2020-06-11 23:10:00* Test Item Value Reference Range Interpretation Comments Mean Corpuscular Hemoglobin (test code = 785-6) 31.0 28-32 [facility] erythrocyte mean corpuscular hemoglobin concentration measurement (mass/volume)2020-06-11 23:10:00* Test Item Value Reference Range Interpretation Comments Mean Corpuscular Hemoglobin Concent (test code = 786-4) 37.3 31-35 [facility]entonRDW FomNa-[id number] 23:10:00* Test Item Value Reference Range Interpretation Comments Red Cell Distribution Width (test code = 17865-7) 13.4 11.7 -14.4 [facility] blood platelet count (count/volume)2020-06-11 23:10:00* Test Item Value Reference Range Interpretation Comments Platelet Count (test code = 777-3) 351 140-360 [facility] segmented neutrophil count as percentage of total dfhaommhjx6122-12-02 23:10:00* Test Item Value Reference Range Interpretation Comments Neutrophils (%) (Auto) (test code = 18089-3) 59.0 38.7-80.0 [facility] blood lymphocyte count as percentage ot total hzyuwpqcdg1840-25-60 23:10:00* Test Item Value Reference Range Interpretation Comments Lymphocytes (%) (Auto) (test code = 736-9) 3.3 18.0-39.1 [facility] blood monocyte count as percentage of total exskklewur0181-95-48 23:10:00* Test Item Value Reference Range Interpretation Comments Monocytes (%) (Auto) (test code = 5905-5) 6.0 4.4-11.3 [facility] blood eosinophil count as percentage of total mrzkvqavbn5225-69-13 23:10:00* Test Item Value Reference Range Interpretation Comments Eosinophils (%) (Auto) (test code = 713-8) 30.8 0.0-6.0 [facility] basophil count as percentage of total ypqtmvgrvi4674-32-13 23:10:00* Test Item Value Reference Range Interpretation Comments Basophils (%) (Auto) (test code = 706-2) 0.4 0.0-1.0 [facility]entonFluoroscopic procedure less than one hour igiemiig8626-59-52 23:10:00* Test Item Value Reference Range Interpretation Comments IM GRANULOCYTES % (test code = IM GRANULOCYTES %) 0.5 0.0- 1.0 [facility] neutrophil count 2020-06-11 23:10:00* Test Item Value Reference Range Interpretation Comments Neutrophils # (Auto) (test code = 751-8) 11.4 2.1-6.9 [facility]) 2020-06-11 23:10:00* Test Item Value Reference Range Interpretation Comments Lymphocytes # (Auto) (test code = 85923-1) 0.6 1.0-3.[address] [facility] monocytes automated count (number/volume)2020-06-11 23:10:00* Test Item Value Reference Range Interpretation Comments Monocytes # (Auto) (test code = 742-7) 1.2 0.2-0.8 [facility] eosinophil count 2020-06-11 23:10:00* Test Item Value Reference Range Interpretation Comments Eosinophils # (Auto) (test code = 711-2) 6.0 0.0-0.4 [facility] blood basophil count (count/volume)2020-06-11 23:10:00* Test Item Value Reference Range Interpretation Comments Basophils # (Auto) (test code = 704-7) 0.1 0.0-0.1 [facility]entonFluoroscopic procedure less than one hour layffkgy0693-27-11 23:10:00* Test Item Value Reference Range Interpretation Comments Absolute Immature Granulocyte (auto (navya t code = Absolute Immature Granulocyte (auto) 0.10 0-0.[address] [facility] leukocytes automated count (number/volume)2020-05-12 20:04:00* Test Item Value Reference Range Interpretation Comments White Blood Count (test code = 6690-2) 9.89 4.8-10.[address] [facility] erythrocytes automated count (number/volume)2020-05-12 20:04:00* Test Item Value Reference Range Interpretation Comments Red Blood Count (test code = 789-8) 5.99 4.3-5.7 [facility] hemoglobin measurement (moles/volume)2020-05-12 20:04:00* Test Item Value Reference Range Interpretation Comments Hemoglobin (test code = 54310-1) 18.0 14.0-18.0 [facility] blood hematocrit (volume fraction)2020-05-12 20:04:00* Test Item Value Reference Range Interpretation Comments Hematocrit (test code = 4544-3) 49.6 38.2-49.6 [facility] erythrocyte mean corpuscular myazli3484-78-29 20:04:00* Test Item Value Reference Range Interpretation Comments Mean Corpuscular Volume (test code = 787-2) 82.8 81-99 [facility] erythrocyte mean corpuscular hemoglobin (mass per erythrocyte)2020-05-12 20:04:00* Test Item Value Reference Range Interpretation Comments Mean Corpuscular Hemoglobin (test code = 785-6) 30.1 28-32 [facility] erythrocyte mean corpuscular hemoglobin concentration measurement (mass/volume)2020-05-12 20:04:00* Test Item Value Reference Range Interpretation Comments Mean Corpuscular Hemoglobin Concent (test code = 786-4) 36.3 31-35 [facility]entonRDW UlxTf-Zel9496-60-02 20:04:00* Test Item Value Reference Range Interpretation Comments Red Cell Distribution Width (test code = 37445-2) 12.2 11.7 -14.4 [facility] blood platelet count (count/volume)2020-05-12 20:04:00* Test Item Value Reference Range Interpretation Comments Platelet Count (test code = 777-3) 272 140-360 [facility] segmented neutrophil count as percentage of total ebxfgepscy3420-11-38 20:04:00* Test Item Value Reference Range Interpretation Comments Neutrophils (%) (Auto) (test code = 45086-3) 68.4 38.7-80.0 [facility] blood lymphocyte count as percentage ot total hrtljbzvna3740-93-33 20:04:00* Test Item Value Reference Range Interpretation Comments Lymphocytes (%) (Auto) (test code = 736-9) 21.7 18.0-39.1 [facility]Autom[facility] blood monocyte count as percentage of total guslqelinc1292-22-70 20:04:00* Test Item Value Reference Range Interpretation Comments Monocytes (%) (Auto) (test code = 5905-5) 8.7 4.4-11.3 [facility]Autom[facility] blood eosinophil count as percentage of total rpywnwenxg7052-79-75 20:04:00* Test Item Value Reference Range Interpretation Comments Eosinophils (%) (Auto) (test code = 713-8) 0.5 0.0-6.0 [facility] blood basophil count as percentage of total zcniyfzfnr2412-26-85 20:04:00* Test Item Value Reference Range Interpretation Comments Basophils (%) (Auto) (test code = 706-2) 0.1 0.0-1.0 [facility]entonFluoroscopic procedure less than one hour oswnakvm9837-53-75 20:04:00* Test Item Value Reference Range Interpretation Comments IM GRANULOCYTES % (test code = IM GRANULOCYTES %) 0.6 0.0- 1.0 [facility] neutrophil count 2020-05-12 20:04:00* Test Item Value Reference Range Interpretation Comments Neutrophils # (Auto) (test code = 751-8) 6.8 2.1-6.9 [facility] lymphocytes count (number/volume) 2020-05-12 20:04:00* Test Item Value Reference Range Interpretation Comments Lymphocytes # (Auto) (test code = 72255-4) 2.2 1.0-3.2 [facility] monocytes automated count (number/volume)2020-05-12 20:04:00* Test Item Value Reference Range Interpretation Comments Monocytes # (Auto) (test code = 742-7) 0.9 0.2-0.8 [facility] eosinophil count 2020-05-12 20:04:00* Test Item Value Reference Range Interpretation Comments Eosinophils # (Auto) (test code = 711-2) 0.1 0.0-0.4 [facility] blood basophil count (count/volume)2020-05-12 20:04:00* Test Item Value Reference Range Interpretation Comments Basophils # (Auto) (test code = 704-7) 0.0 0.0-0.1 [facility]entonFluoroscopic procedure less than one hour dwwtrutm1567-63-16 20:04:00* Test Item Value Reference Range Interpretation Comments Absolute Immature Granulocyte (auto (navya t code = Absolute Immature Granulocyte (auto) 0.06 0-0.1 [facility] color xjpexwqkcxyli2130-48-89 20:04:00* Test Item Value Reference Range Interpretation Comments Urine Color (test code = 5778-6) YELLOW YELLOW [facility] hpgagct4427-92-71 20:04:00* Test Item Value Reference Range Interpretation Comments Urine Clarity (test code = 14194-8) SL CLOUDY CLEAR [facility] gravity of Urine by Test strip 2020-05-12 20:04:00* Test Item Value Reference Range Interpretation Comments Urine Specific [place] (test code = 5811-5) 1.030 1.010-1.02 5 [facility] pH measurement by automated test mbumo6507-64-67 20:04:00* Test Item Value Reference Range Interpretation Comments Urine pH (test code = 79699-4) 6.5 5-7 [facility] leukocyte esterase detection by ytmewiva1841-21-85 20:04:00* Test Item Value Reference Range Interpretation Comments Urine Leukocyte Esterase (test code = 5799-2) NEGATIVE NEGATIVE [facility] nitrite zitrfcwys4047-95-28 20:04:00* Test Item Value Reference Range Interpretation Comments Urine Nitrite (test code = 78009-5) NEGATIVE NEGATIVE [facility] protein measurement by test strip (mass/volume)2020-05-12 20:04:00* Test Item Value Reference Range Interpretation Comments Urine Protein (test code = 5804-0) 1+ NEGATIVE [facility] glucose wdbzaskfw8713-54-47 20:04:00* Test Item Value Reference Range Interpretation Comments Urine Glucose (UA) (test code = 2349-9) 2+ NEGATIVE [facility] ketones detection by automated test biskp2118-43-86 20:04:00* Test Item Value Reference Range Interpretation Comments Urine Ketones (test code = 16952-0) 3+ NEGATIVE [facility] urobilinogen measurement by test strip (mass/volume)2020-05-12 20:04:00* Test Item Value Reference Range Interpretation Comments Urine Urobilinogen (test code = 75544-1) 0.2 0.2-1 [facility] total bilirubin measurement (mass/volume)2020-05-12 20:04:00* Test Item Value Reference Range Interpretation Comments Urine Bilirubin (test code = 1978-6) MODERATE NEGATIVE [facility] erythrocytes zhtsjebwj3998-48-57 20:04:00* Test Item Value Reference Range Interpretation Comments Urine Blood (test code = 17712-9) NEGATIVE NEGATIVE [facility]entonAutomated urine sediment leukocyte count by microscopy (number/high power field)2020-05-12 20:04:00* Test Item Value Reference Range Interpretation Comments Urine WBC (test code = 5821-4) NONE 0-5 [facility]entonErythrocytes detection in urine sediment by light ruccrxjxxu5166-99-96 20:04:00* Test Item Value Reference Range Interpretation Comments Urine RBC (test code = 56828-8) 0-5 0-5 [facility]entonBacteria detection in urine sediment by light xuvypbhnrh0301-91-12 20:04:00* Test Item Value Reference Range Interpretation Comments Urine Bacteria (test code = 41256-9) MODERATE NONE [facility]entonEpithelial cells detection in urine sediment by light vrrioismel7701-87-10 20:04:00* Test Item Value Reference Range Interpretation Comments Urine Epithelial Cells (test code = 75713-6) NONE NONE [facility]um or plasma sodium measurement (moles/volume)2020-05-12 20:04:00* Test Item Value Reference Range Interpretation Comments Sodium Level (test code = 2951-2) 124 136-145 [facility]inte[facility]um or plasma potassium measurement (moles/volume)2020-05-12 20:04:00* Test Item Value Reference Range Interpretation Comments Potassium Level (test code = 2823-3) 4.5 3.5-5.1 [facility]inte[facility]um or plasma chloride measurement (moles/volume)2020-05-12 20:04:00* Test Item Value Reference Range Interpretation Comments Chloride Level (test code = 2075-0) 91 98-107 [facility]inte[facility]um or plasma carbon dioxide, total measurement (moles/volume)2020-05-12 20:04:00* Test Item Value Reference Range Interpretation Comments Carbon Dioxide Level (test code = 2028-9) 13 22-29 [facility]inteerum or plasma anion [id number] 20:04:00* Test Item Value Reference Range Interpretation Comments Anion Gap (test code = 27614-8) 24.5 8-16 [facility]inte[facility]um or plasma urea nitrogen measurement (mass/volume)2020-05-12 20:04:00* Test Item Value Reference Range Interpretation Comments Blood Urea Nitrogen (test code = 3094-0) 26 7-26 [facility]um or plasma creatinine measurement (mass/volume)2020-05-12 20:04:00* Test Item Value Reference Range Interpretation Comments Creatinine (test code = 2160-0) 1.42 0.72-1.25 [facility]inte[facility]um or plasma urea nitrogen/creatinine mass susau6458-13-16 20:04:00* Test Item Value Reference Range Interpretation Comments BUN/Creatinine Ratio (test code = 3097-3) 18 6-25 [facility]entonEstimated glomerular filtration rate (GFR) mbwlqxojshbzx0228-87-13 20:04:00* Test Item Value Reference Range Interpretation Comments Estimat Glomerular Filtration Rate (test code = 831765647) 60 >60 Ranges were taken from the National Kidney Disease Education Program and the [facility] Foundation literature.Reference ranges:60 or greater: Ahjvku23-05 ( for 3 consecutive months): Chronic kidney disease 15 or less: Kidney failureTexas Health DentonGlucose zneufoxlfai1680-17-06 20:04:00* Test Item Value Reference Range Interpretation Comments Glucose Level (test code = APD1503) 351 74-118 [facility]um or plasma calcium measurement (mass/volume)2020-05-12 20:04:00* Test Item Value Reference Range Interpretation Comments Calcium Level (test code = 79870-5) 9.9 8.4-10.2 [facility]um or plasma total bilirubin measurement (mass/volume)2020-05-12 20:04:00* Test Item Value Reference Range Interpretation Comments Total Bilirubin (test code = 1975-2) 1.5 0.2-1.2 [facility]entonFluoroscopic procedure less than one hour jekzdleg4277-07-54 20:04:00* Test Item Value Reference Range Interpretation Comments Aspartate Amino Transf (AST/SGOT) (test code = Aspartate Amino Transf (AST/SGOT)) 19 5-34 [facility]um or plasma alanine aminotransferase measurement (enzymatic activity/volume)2020-05-12 20:04:00* Test Item Value Reference Range Interpretation Comments Alanine Aminotransferase (ALT/SGPT) (test code = 1742-6) 24 0-55 [facility] or plasma protein measurement (mass/volume)2020-05-12 20:04:00* Test Item Value Reference Range Interpretation Comments Total Protein (test code = 2885-2) 8.6 6.5-8.1 [facility] or plasma albumin measurement (mass/volume)2020-05-12 20:04:00* Test Item Value Reference Range Interpretation Comments Albumin (test code = 1751-7) 5.0 3.5-5.0 [facility]entonPlasma globulin measurement (mass/volume) 2020-05-12 20:04:00* Test Item Value Reference Range Interpretation Comments Globulin (test code = 44907-3) 3.6 2.3-3.5 [facility]um or plasma albumin/globulin mass raecj6255-24-77 20:04:00* Test Item Value Reference Range Interpretation Comments Albumin/Globulin Ratio (test code = 1759-0) 1.4 0.8-2.0 [facility] or plasma alkaline phosphatase measurement (enzymatic activity/volume)2020-05-12 20:04:00* Test Item Value Reference Range Interpretation Comments Alkaline Phosphatase (test code = 6768-6) 108 40-150 [facility]inteerum or plasma creatine kinase measurement (enzymatic activity/volume)2020-05-12 20:04:00* Test Item Value Reference Range Interpretation Comments Creatine Kinase (test code = 2157-6) 77 30-200 [facility]inteerum or plasma creatine kinase MB measurement (mass/volume)2020-05-12 20:04:00* Test Item Value Reference Range Interpretation Comments Creatine Kinase MB (test code = 29087-9) 1.60 0-5.0 [facility]entonTroponin I measurement by highly sensitive enzyme mgwzjqozpsg4493-25-22 20:04:00* Test Item Value Reference Range Interpretation Comments Troponin I (test code = 38741-1) < 0.001 0-0.300 [facility] color xnjrdwuerzikc6842-86-08 20:04:00* Test Item Value Reference Range Interpretation Comments Urine Color (test code = 5778-6) YELLOW YELLOW [facility] jaodcrx6405-18-27 20:04:00* Test Item Value Reference Range Interpretation Comments Urine Clarity (test code = 31803-3) SL CLOUDY CLEAR [facility] gravity of Urine by Test strip 2020-05-12 20:04:00* Test Item Value Reference Range Interpretation Comments Urine Specific [place] (test code = 5811-5) 1.030 1.010-1.02 5 [facility] pH measurement by automated test rgopm8632-27-99 20:04:00* Test Item Value Reference Range Interpretation Comments Urine pH (test code = 53048-6) 6.5 5-7 [facility] leukocyte esterase detection by pkwhgjsb4985-01-95 20:04:00* Test Item Value Reference Range Interpretation Comments Urine Leukocyte Esterase (test code = 5799-2) NEGATIVE NEGATIVE [facility] nitrite jdufokzjw7176-37-69 20:04:00* Test Item Value Reference Range Interpretation Comments Urine Nitrite (test code = 33279-2) NEGATIVE NEGATIVE [facility] protein measurement by test strip (mass/volume)2020-05-12 20:04:00* Test Item Value Reference Range Interpretation Comments Urine Protein (test code = 5804-0) 1+ NEGATIVE [facility]enton[facility] glucose pyjiwypks1318-08-72 20:04:00* Test Item Value Reference Range Interpretation Comments Urine Glucose (UA) (test code = 2349-9) 2+ NEGATIVE [facility] ketones detection by automated test zknoy1930-25-73 20:04:00* Test Item Value Reference Range Interpretation Comments Urine Ketones (test code = 90582-3) 3+ NEGATIVE [facility] urobilinogen measurement by test strip (mass/volume)2020-05-12 20:04:00* Test Item Value Reference Range Interpretation Comments Urine Urobilinogen (test code = 39660-3) 0.2 0.2-1 [facility] total bilirubin measurement (mass/volume)2020-05-12 20:04:00* Test Item Value Reference Range Interpretation Comments Urine Bilirubin (test code = 1978-6) MODERATE NEGATIVE [facility] erythrocytes krzcmdeep7539-41-39 20:04:00* Test Item Value Reference Range Interpretation Comments Urine Blood (test code = 58192-5) NEGATIVE NEGATIVE [facility]entonAutomated urine sediment leukocyte count by microscopy (number/high power field)2020-05-12 20:04:00* Test Item Value Reference Range Interpretation Comments Urine WBC (test code = 5821-4) NONE 0-5 [facility]entonErythrocytes detection in urine sediment by light tsiantagrc7010-99-68 20:04:00* Test Item Value Reference Range Interpretation Comments Urine RBC (test code = 65181-2) 0-5 0-5 [facility]entonBacteria detection in urine sediment by light fhadzpnneu0821-97-84 20:04:00* Test Item Value Reference Range Interpretation Comments Urine Bacteria (test code = 62771-6) MODERATE NONE [facility]entonEpithelial cells detection in urine sediment by light erxtajouhf4094-15-10 20:04:00* Test Item Value Reference Range Interpretation Comments Urine Epithelial Cells (test code = 44319-3) NONE NONE [facility]um or plasma sodium measurement (moles/volume)2020-05-12 20:04:00* Test Item Value Reference Range Interpretation Comments Sodium Level (test code = 2951-2) 124 136-145 [facility]um or plasma potassium measurement (moles/volume)2020-05-12 20:04:00* Test Item Value Reference Range Interpretation Comments Potassium Level (test code = 2823-3) 4.5 3.5-5.1 [facility]um or plasma chloride measurement (moles/volume)2020-05-12 20:04:00* Test Item Value Reference Range Interpretation Comments Chloride Level (test code = 2075-0) 91 98-107 [facility]um or plasma carbon dioxide, total measurement (moles/volume)2020-05-12 20:04:00* Test Item Value Reference Range Interpretation Comments Carbon Dioxide Level (test code = 2028-9) 13 22-29 [facility]inte[facility]um or plasma anion blu4116-76-75 20:04:00* Test Item Value Reference Range Interpretation Comments Anion Gap (test code = 60935-3) 24.5 8-16 [facility] or plasma urea nitrogen measurement (mass/volume)2020-05-12 20:04:00* Test Item Value Reference Range Interpretation Comments Blood Urea Nitrogen (test code = 3094-0) 26 7-26 [facility] or plasma creatinine measurement (mass/volume)2020-05-12 20:04:00* Test Item Value Reference Range Interpretation Comments Creatinine (test code = 2160-0) 1.42 0.72-1.25 [facility]um or plasma urea nitrogen/creatinine mass extrj5953-98-56 20:04:00* Test Item Value Reference Range Interpretation Comments BUN/Creatinine Ratio (test code = 3097-3) 18 6-25 [facility]entonEstimated glomerular filtration rate (GFR) mlxvprfxoosze1445-93-03 20:04:00* Test Item Value Reference Range Interpretation Comments Estimat Glomerular Filtration Rate (test code = 523629923) 60 >60 Ranges were taken from the National Kidney Disease Education Program and the [facility] Foundation literature.Reference ranges:60 or greater: Zvicqq56-74 ( for 3 consecutive months): Chronic kidney disease 15 or less: Kidney failureTexas Health DentonGlucose haaawjgydta2215-12-46 20:04:00* Test Item Value Reference Range Interpretation Comments Glucose Level (test code = VOR3134) 351 74-118 [facility] or plasma calcium measurement (mass/volume)2020-05-12 20:04:00* Test Item Value Reference Range Interpretation Comments Calcium Level (test code = 63296-7) 9.9 8.4-10.2 [facility]um or plasma total bilirubin measurement (mass/volume)2020-05-12 20:04:00* Test Item Value Reference Range Interpretation Comments Total Bilirubin (test code = 1975-2) 1.5 0.2-1.2 [facility]entonFluoroscopic procedure less than one hour mrmhtfyg1282-22-93 20:04:00* Test Item Value Reference Range Interpretation Comments Aspartate Amino Transf (AST/SGOT) (test code = Aspartate Amino Transf (AST/SGOT)) 19 5-34 [facility] or plasma alanine aminotransferase measurement (enzymatic activity/volume)2020-05-12 20:04:00* Test Item Value Reference Range Interpretation Comments Alanine Aminotransferase (ALT/SGPT) (test code = 1742-6) 24 0-55 [facility] or plasma protein measurement (mass/volume)2020-05-12 20:04:00* Test Item Value Reference Range Interpretation Comments Total Protein (test code = 2885-2) 8.6 6.5-8.1 [facility] or plasma albumin measurement (mass/volume)2020-05-12 20:04:00* Test Item Value Reference Range Interpretation Comments Albumin (test code = 1751-7) 5.0 3.5-5.0 [facility]entonPlasma globulin measurement (mass/volume) 2020-05-12 20:04:00* Test Item Value Reference Range Interpretation Comments Globulin (test code = 32387-6) 3.6 2.3-3.5 [facility] or plasma albumin/globulin mass pqjqn1624-39-47 20:04:00* Test Item Value Reference Range Interpretation Comments Albumin/Globulin Ratio (test code = 1759-0) 1.4 0.8-2.0 [facility] or plasma alkaline phosphatase measurement (enzymatic activity/volume)2020-05-12 20:04:00* Test Item Value Reference Range Interpretation Comments Alkaline Phosphatase (test code = 6768-6) 108 40-150 [facility]inteerum or plasma creatine kinase measurement (enzymatic activity/volume)2020-05-12 20:04:00* Test Item Value Reference Range Interpretation Comments Creatine Kinase (test code = 2157-6) 77 30-200 [facility]inte[facility]um or plasma creatine kinase MB measurement (mass/volume)2020-05-12 20:04:00* Test Item Value Reference Range Interpretation Comments Creatine Kinase MB (test code = 15740-6) 1.60 0-5.0 [facility]entonTroponin I measurement by highly sensitive enzyme cexbuibquaf7728-56-74 20:04:00* Test Item Value Reference Range Interpretation Comments Troponin I (test code = 92373-6) < 0.001 0-0.300 [facility]entonFluoroscopic procedure less than one hour llomfjsb0625-11-77 20:04:00* Test Item Value Reference Range Interpretation [...] under 564(g) of the ACT.Testing performed by [address] [id number] Health DentonCapillary blood glucose measurement by glucometer (mass/volume)2020-05-12 20:03:00* Test Item Value Reference Range Interpretation Comments Bedside Glucose (test code = 21913-3) 333 70-120 Meter ID: [id number] Health DentonCapillary blood glucose measurement by glucometer (mass/volume)2020-05-12 20:03:00* Test Item Value Reference Range Interpretation Comments Bedside Glucose (test code = 99942-6) 333 70-120 Meter ID: [id number] Health Denton- XR CHEST 1 V 2020-01-07 16:34:00 FAX: Aleksandr Sánchez MD [place]: St: PRE Name: KEVIN SARGENT [facility] : [birth year] Age/S: 24/M [address] [facility] Unit #: [id number] Loc: [place] [address] Phys: Aleksandr Sánchez MD Acct: [id number] Dis Date: Status: PRE ER PHONE #: [phone] Exam Date: 01/07/2020 1559 FAX #: [phone] Reason: ABDOMINAL PAIN EXAMS: CPT CODE: [id number] XR CHEST 1 V 70687 REASON FOR EXAM: ABDOMINAL PAIN Exam Order [...] López MD CC: Aleksandr Sánchez MD Technologist: FLORINDA CALDWELL, RT(R) Trnscrd Date/Time/By: 01/07/2020 ( 9849) : By: [email or web address] Orig Print D/T: S: 01/07/2020 (5355) PAGE 1 Signed Report Blood Culture - Routine (Left Venipuncture)2019-11-01 08:00:00* Test Item Value Reference Range Interpretation Comments Result (test code = 6463-4) No growth in 5 days [facility] USSIJCB5365[facility]02-41 08:00:00* Test Item Value Reference Range Interpretation Comments CULTURE (BEAKER) (test code = 1095) No growth in 5 days BLOOD HDGNITK3002-16-43 04:01:00* Test Item Value Reference Range Interpretation Comments CULTURE (BEAKER) (test code = 1095) No growth in 5 days POC-Glucose ahieg1354-59-70 12:47:00* Test Item Value Reference Range Interpretation Comments POC-Glucose Meter (test code = 1538) 159 mg/dL 70-110 H : TESTED AT [facility] [address] [facility], [address]: Merchandising Consultant/Household Refrigerator Mechanic ID = [id number] for TOMMY SHARPE Lab Interpretation (test code = 34181-6) Abnormal [facility]PO[facility] HQVLQ1106-02-74 12:47:00* Test Item Value Reference Range Interpretation Comments POC-GLUCOSE METER (BEAKER) (test code = 1538) 159 mg/dL 70-110 H : TESTED AT [facility] [address] [facility], [address]: Merchandising Consultant/Household Refrigerator Mechanic ID = [id number] for TOMMY SHARPE POCT-GLUCOSE [id number] 09:08:00* Test Item Value Reference Range Interpretation Comments POC-GLUCOSE METER (BEAKER) (test code = 1538) 140 mg/dL 70-110 H : TESTED AT [facility] [address] [facility], [address]: Merchandising Consultant/Household Refrigerator Mechanic ID = [id number] for TOMMY SHARPE Basic Metabolic Sirbq0570-97-98 06:23:00* Test Item Value Reference Range Interpretation [...] 98 mg/dL 70-105 Calcium (test code = 23428-0) 8.5 mg/dL 8.4-10.2 EGFR (test code = 93132-4) 164 mL/min/1.73 sq m ESTIMATED GFR IS NOT ACCURATE CREATININE CLEARANCE IN PREDICTING GLOMERULAR FILTRATION RATE. ESTIMATED GFR IS NOT APPLICABLE FOR DIALYSIS PATIENTS. Lab Interpretation (test code = 55824-9) [facility]normal [facility]MAG[facility]UM2019-12-18 06:23:00* Test Item Value Reference Range Interpretation Comments MAGNESIUM (BEAKER) (test code = 627) 2.1 mg/dL 1.6-2.6 BASIC METABOLIC [id number] 06:23:00* Test Item Value Reference Range Interpretation [...] GFR IS NOT APPLICABLE FOR DIALYSIS PATIENTS. Oqeufxlol8385-78-79 06:16:00* Test Item Value Reference Range Interpretation Comments Magnesium (test code = 41777-9) 2.1 mg/dL 1.6-2.6 Lab Interpretation (test code = 84401-2) [facility] 06:16:00* Test Item Value Reference Range Interpretation Comments MAGNESIUM (BEAKER) (test code = 627) 2.1 mg/dL 1.6-2.6 POCT-GLUCOSE [id number] 22:35:00* Test Item Value Reference Range Interpretation Comments POC-GLUCOSE METER (BEAKER) (test code = 1538) 224 mg/dL 70-110 H : TESTED AT [place] [id number] [facility], [address]: Merchandising Consultant/Household Refrigerator Mechanic ID = [id number] for ANGE GREEN POCT-GLUCOSE [id number] 17:32:00* Test Item Value Reference Range Interpretation Comments POC-GLUCOSE METER (BEAKER) (test code = 1538) 211 mg/dL 70-110 H : TESTED AT [facility] [address] [facility], [address]: Merchandising Consultant/Household Refrigerator Mechanic ID = [id number] for DA PACKER Hemoglobin [id number] 15:14:00* Test Item Value Reference Range Interpretation Comments Hemoglobin A1C (test code = 4548-4) 8.7 % 4.3-6.1 H Lab Interpretation (test code = 59896-2) Abnormal [facility]HE[facility] [id number] 15:14:00* Test Item Value Reference Range Interpretation Comments HEMOGLOBIN A1C (BEAKER) (test code = 368) 8.7 % 4.3-6.1 H POCT-GLUCOSE [id number] 12:33:00* Test Item Value Reference Range Interpretation Comments POC-GLUCOSE METER (BEAKER) (test code = 1538) 251 mg/dL 70-110 H : TESTED AT [facility] [address] [facility], [address]: Merchandising Consultant/Household Refrigerator Mechanic ID = [id number] for VENU PORTILLO POCT-GLUCOSE [id number] 12:07:00* Test Item Value Reference Range Interpretation Comments POC-GLUCOSE METER (BEAKER) (test code = 1538) 282 mg/dL 70-110 H : TESTED AT [address], [address]: Merchandising Consultant/Household Refrigerator Mechanic ID = [id number] for DA PACKER Urinalysis w/Microscopic + Reflex to Myyimxt8854-65-42 11:37:00* Test Item Value Reference Range Interpretation Comments Color, UA (test code = 5778-6) Yellow Clarity, UA (test code = 5767-9) Clear Specific [place], UA (test code = 5811-5) 1.012 1.001-1.035 pH, UA (test code = 5803-2) 7.0 5.0-8.0 Protein, UA (test code = 48408-6) Negative Negative Glucose, UA (test code = 365) >1000 mg/dL Negative A Ketones, UA (test code = 2514-8) 40 mg/dL Negative A Bilirubin, UA (test code = 41890-6) Negative Negative Blood, UA (test code = 77503-5) Negative Negative Nitrite, UA (test code = 5802-4) Negative Negative Leukocytes, UA (test code = 5799-2) Negative Negative Urobilinogen, UA (test code = 66316-0) 3.0 mg/dL 0.2-1 H RBC, UA (test code = 43274-9) RBC:0-1/HPF WBC, UA (test code = 5821-4) WBC:1-2/HPF Specimen Source (test code = 2795) Lab Interpretation (test code = 23710-7) [facility]normal [facility] REFLEX URINE [id number] 11:37:00* Test Item Value Reference Range Interpretation [...] WBC:1-2/HPF SOURCE(BEAKER) (test code = 2795) POCT-GLUCOSE [id number] 11:23:00* Test Item Value Reference Range Interpretation Comments POC-GLUCOSE METER (BEAKER) (test code = 1538) 281 mg/dL 70-110 H : TESTED AT [place] [id number] [facility], [address]: Merchandising Consultant/Household Refrigerator Mechanic ID = [id number] for DA PACKER POCT-GLUCOSE [id number] 09:21:00* Test Item Value Reference Range Interpretation Comments POC-GLUCOSE METER (BEAKER) (test code = 1538) 199 mg/dL 70-110 H : TESTED AT [place] [id number] [facility], [address]: Merchandising Consultant/Household Refrigerator Mechanic ID = [id number] for PORTILLOVARGASVENU POCT-GLUCOSE [id number] 08:09:00* Test Item Value Reference Range Interpretation Comments POC-GLUCOSE METER (BEAKER) (test code = 1538) 58 mg/dL 70-110 L : TESTED AT [facility] [address] [facility], [address]: Merchandising Consultant/Household Refrigerator Mechanic ID = [id number] for DA PACKER Rapid drug screen, [id number] 07:15:00* Test Item Value Reference Range Interpretation Comments Barbiturate Screen (test code = 89683-3) Negative Negative Benzodiazepine Screen (test code = 22688-1) Negative Negative Cocaine (Metab.) Screen (test code = 3397-7) Negative Negative Methadone Screen (test code = 70661-3) Negative Negative Opiate Screen (test code = 78760-1) Negative Negative Cannabinoid Screen (test code = 20105-1) Positive Negative A Amph/Methamph Screen (test code = 55684-5) Positive Negative A Phencyclidine Screen (test code = 96199-0) Negative Negative BEAU (test code = BEAU) DRUG CUTOFF C ONC.Cocaine 300 ng/mL Cannabinoid 50 ng/mLBenzodiazepine 200 ng/mLBarbiturate 200 ng/mLPhencyclidine 25 ng/mLOpiate 300 ng/mLMethadone 300 ng/mLAmphetamine/ 1000 ng/mL Methamphetamine This assay provides an unconfirmed qualitative test result for the clinical management of patients in emergency situations. Chain of custody not maintained. Some irri-zgo-jktggfa medications, as well as adulterants, may cause inaccurate results. Clinical correlation should be applied. A more comprehensive drug screen or confirmation of a detected drug may be performed upon request. Lab Interpretation (test code = 36759-8) [facility]normal [facility], [id number] 07:15:00* Test Item Value Reference Range Interpretation [...] situations. Chain of custody not maintained. Some wnhc-ifd-rvxgstk me dications, as well as adulterants, may cause inaccurate results. Clinical correl ation should be applied. A more comprehensive drug screen or confirmation of a d etected drug may be performed upon request.POCT-GLUCOSE [id number] 06:24:00 * Test Item Value Reference Range Interpretation Comments POC-GLUCOSE METER (BEAKER) (test code = 1538) 74 mg/dL 70-110 : TESTED AT [facility] [address] [facility], [address]: Merchandising Consultant/Household Refrigerator Mechanic ID = [id number] for ANGE GREEN PUIPQXDRR3782-32-34 06:23:00* Test Item Value Reference Range Interpretation Comments MAGNESIUM (BEAKER) (test code = 627) 1.9 mg/dL 1.6-2.6 BASIC METABOLIC [id number] 06:23:00* Test Item Value Reference Range Interpretation [...] IS NOT APPLICABLE FOR DIALYSIS PATIENTS. Ketone, [id number] 05:42:00* Test Item Value Reference Range Interpretation Comments Ketones, Blood (test code = 1103) 0.2 mmol/L <0.4 Lab Interpretation (test code = 57857-5) Normal [facility], [id number] 05:42:00* Test Item Value Reference Range Interpretation Comments KETONES, BLOOD (BEAKER) (test code = 1103) 0.2 mmol/L <0.4 CBC with platelet count + automated dwxa2026-34-71 05:33:00* Test Item Value Reference Range Interpretation [...] 450 K/CU MM MPV (test code = 05524-5) 9.4 fL 9.4-12.4 nRBC (test code = [...] % 0-1 Lab Interpretation (test code = 55240-0) Abnormal [facility] W/PLT COUNT & AUTO [id number] 05:33:00* Test Item Value Reference Range Interpretation [...] code = 2801) 0 % 0-1 POCT-GLUCOSE [id number] 05:17:00* Test Item Value Reference Range Interpretation Comments POC-GLUCOSE METER (BEAKER) (test code = 1538) 252 mg/dL 70-110 H : TESTED AT [facility] [address] [facility], [address]: Merchandising Consultant/Household Refrigerator Mechanic ID = [id number] for PA GIBBONS Blood gas, ngchgl8693-96-31 05:15:00* Test Item Value Reference Range Interpretation Comments pH, Julio (test code = 2746-6) 7.47 7.32-7.42 H pCO2, Julio (test code = 755) 42 41- 51 mmHg pO2, Julio (test code = 2705-2) 61 25- 40 mmHg H O2 Sat, Julio (test code = 2711-0) 92.7 % 40-70 H HCO3, Julio (test code = 64743-7) 30 mmol/L 21-29 H Base Excess, Julio (test code = 1927-3) 5.3 mmol/L -2-3 H Patient Temperature (test code = 8310-5) 37.0 C FIO2 (test code = 1819) 21 % Lab Interpretation (test code = 71165-7) [facility]normal [facility], [id number] 05:15:00* Test Item Value Reference Range Interpretation [...] (test code = 1819) 21.0 % POCT-GLUCOSE [id number] 03:15:00* Test Item Value Reference Range Interpretation Comments POC-GLUCOSE METER (BEAKER) (test code = 1538) 304 mg/dL 70-110 H : TESTED AT [place] [id number] [facility], [address]: Merchandising Consultant/Household Refrigerator Mechanic ID = [id number] for PA GIBBONS POCT-GLUCOSE [id number] 01:45:00* Test Item Value Reference Range Interpretation Comments POC-GLUCOSE METER (BEAKER) (test code = 1538) 218 mg/dL 70-110 H : TESTED AT [address], [address]: Merchandising Consultant/Household Refrigerator Mechanic ID = [id number] for PA GIBBONS TSH/Free T4 If Dnpzqduwo2971-54-07 01:38:00* Test Item Value Reference Range Interpretation Comments TSH (test code = 44934-3) 0.97 0.35- 4.94 uIU/mL Lab Interpretation (test code = 92390-3) [facility] T4 IF [id number] 01:38:00* Test Item Value Reference Range Interpretation Comments THYROID STIMULATING HORMONE (BEAKER) (test code = 772) 0.97 uIU/mL 0.35-4.94 Lactic acid, zbdocq4909-82-92 01:13:00* Test Item Value Reference Range Interpretation Comments Lactate, Venous (test code = 2872) 1.8 mmol/L 0.5-2.2 Lab Interpretation (test code = 39248-2) [facility] HospitalLACT[facility] ACID, [id number] 01:13:00* Test Item Value Reference Range Interpretation Comments LACTATE BLOOD VENOUS (2) (BEAKER) (test code = 2872) 1.8 mmol/L 0 .5-2.2 Troponin [id number] 01:10:00* Test Item Value Reference Range Interpretation Comments Troponin I (test code = 89982-5) <0.01 0-0.03 BEAU (test code = BEAU) [...] persistent tachyarrhythmia. Lab Interpretation (test code = 92145-2) [facility] HospitalTROP[facility]IN [id number] 01:10:00* Test Item Value Reference Range Interpretation [...] acute neurological disease, and per sistent tachyarrhythmia.KETONE, [id number] 01:05:00* Test Item Value Reference Range Interpretation Comments KETONES, BLOOD (BEAKER) (test code = 1103) 0.3 mmol/L <0.4 Hepatic function amrle2645-47-90 01:03:00* Test Item Value Reference Range Interpretation Comments Protein, Total (test code = 2885-2) 6.9 6.0- 8.3 gm/dL Albumin (test code = 62287-4) 4.4 g/dL 3.5-5 Total Bilirubin (test code = 1975-2) 0.4 mg/dL 0.2-1.2 Bilirubin, Direct (test code = 1967-7) 0.2 mg/dL 0.1-0.5 Alkaline Phosphatase (test code = 6768-6) 81 U/L 40-150 AST (test code = 1920-8) 15 U/L 5-34 ALT (test code = 1742-6) 13 U/L 6-55 Lab Interpretation (test code = 05474-0) [facility]Amylase2019-12-17 01:03:00* Test Item Value Reference Range Interpretation Comments Amylase (test code = 1798-8) 28 U/L 25-125 Lab Interpretation (test code = 66048-1) [facility] HospitalLipase2019-12-17 01:03:00* Test Item Value Reference Range Interpretation Comments Lipase (test code = 3040-3) 7 U/L 8-78 L Lab Interpretation (test code = 75683-6) Abnormal [facility] HospitalPhosphorus2019-12-17 01:03:00* Test Item Value Reference Range Interpretation Comments Phosphorus (test code = 2777-1) 3.2 mg/dL 2.3-4.7 Lab Interpretation (test code = 88094-4) [facility] HospitalPotassium2019-12-17 01:03:00* Test Item Value Reference Range Interpretation Comments Potassium (test code = 2823-3) 2.7 meq/L 3.5-5.1 L Lab Interpretation (test code = 58246-6) Abnormal [facility] HospitalPOTASSIUM2019-12-17 01:03:00* Test Item Value Reference Range Interpretation Comments POTASSIUM (BEAKER) (test code = 379) 2.7 meq/L 3.5-5.1 L [id number] 01:03:00* Test Item Value Reference Range Interpretation Comments MAGNESIUM (BEAKER) (test code = 627) 2.0 mg/dL 1.6-2.6 [id number] 01:03:00* Test Item Value Reference Range Interpretation Comments PHOSPHORUS (BEAKER) (test code = 604) 3.2 mg/dL 2.3-4.7 BASIC METABOLIC [id number] 01:03:00* Test Item Value Reference Range Interpretation [...] NOT APPLICABLE FOR DIALYSIS PATIENTS. HEPATIC FUNCTION [id number] 01:03:00* Test Item Value Reference Range Interpretation [...] (test code = 347) 13 U/L 6-55 [id number] 01:03:00* Test Item Value Reference Range Interpretation Comments AMYLASE (BEAKER) (test code = 349) 28 U/L 25-125 [id number] 01:03:00* Test Item Value Reference Range Interpretation Comments LIPASE (BEAKER) (test code = 749) 7 U/L 8-78 L [id number] 01:00:00* Test Item Value Reference Range Interpretation Comments MAGNESIUM (BEAKER) (test code = 627) 2.0 mg/dL 1.6-2.6 BASIC METABOLIC [id number] 01:00:00* Test Item Value Reference Range Interpretation [...] DIALYSIS PATIENTS. CBC W/PLT COUNT & AUTO [id number] 00:59:00* Test Item Value Reference Range Interpretation [...] = 2801) 1 % 0-1 BLOOD GAS, JSCUKP7400-03-02 00:58:00* Test Item Value Reference Range Interpretation [...] (test code = 1819) 21.0 % POCT-GLUCOSE [id number] 00:13:00* Test Item Value Reference Range Interpretation Comments POC-GLUCOSE METER (BEAKER) (test code = 1538) 43 mg/dL 70-110 L : TESTED AT [facility] [address] [facility], [address]: Merchandising Consultant/Household Refrigerator Mechanic ID = [id number] for RADHA TANNER Bedside Vilvhlt6209-57-00 23:04:00* Test Item Value Reference Range Interpretation Comments Bedside Glucose (test code = 73802-9) 84 70-120 Meter ID: [id number] [facility] [id number] 20:01:00 [facility] [address] [address] Patient Name: KEVIN LOMELI MR #: [id number] : 1995 Age/Sex: 24/M Req #: [id number] Adm Physician: Ordered by: IMELDA DAVID MD Report #: [id number] Location: ER Room/Bed: Procedure: [id number] CT/CT BRAIN WO Exam Date: 10/26/19 Exam [...] PY TO: IMELDA DAVID MD Creatine Kinase [id number] 19:35:00* Test Item Value Reference Range Interpretation Comments Creatine Kinase MB (test code = 38954-1) 1.00 0-5.0 [facility] [id number] 19:35:00* Test Item Value Reference Range Interpretation Comments Troponin I (test code = JJQ0109) < 0.001 0-0.300 [facility]entonCreatine Phoucv4095-24-14 19:19:00* Test Item Value Reference Range Interpretation Comments Creatine Kinase (test code = 2157-6) 135 30-200 [facility]entonEthyl Alcohol Bhlae4405-74-08 19:18:00* Test Item Value Reference Range Interpretation Comments Ethyl Alcohol Level (test code = 5643-2) < 10.0 0.0-10.0 [facility]entonUrine [id number] 19:15:00* Test Item Value Reference Range Interpretation Comments Urine WBC (test code = 5821-4) NONE 0-5 [facility] [id number] 19:15:00* Test Item Value Reference Range Interpretation Comments Urine RBC (test code = 62293-0) NONE 0-5 [facility] Vzsajsot4440-01-89 19:15:00* Test Item Value Reference Range Interpretation Comments Urine Bacteria (test code = 64166-5) NONE NONE [facility] Epithelial Mgedy3673-27-32 19:15:00 * Test Item Value Reference Range Interpretation Comments Urine Epithelial Cells (test code = 19850-1) NONE NONE [facility] Opiates [id number] 19:04:00* Test Item Value Reference Range Interpretation Comments Urine Opiates Screen (test code = 09284-3) NEGATIVE NEGATIVE ALL TESTS PERFORMED MANUALLY ON LIQVID TOX/SEE TESTTexas Health DentonUrine Barbiturates [id number] 19:04:00* Test Item Value Reference Range Interpretation Comments Urine Barbiturates Screen (test code = 175246645) NEGATIVE NEGA TIVE [facility]enton[facility] Phencyclidine [id number] 19:04:00* Test Item Value Reference Range Interpretation Comments Urine Phencyclidine Screen (test code = 65325-9) NEGATIVE NEGAT JESSIKA [facility]entonU[facility] Amphetamines [id number] 19:04:00* Test Item Value Reference Range Interpretation Comments Urine Amphetamines Screen (test code = 21441-5) NEGATIVE NEGATI VE [facility]enton[facility] Methamphetamines Kjdoel3625-64-09 19:04:00* Test Item Value Reference Range Interpretation Comments Urine Methamphetamines Screen (test code = Urine Metha mphetamines Screen) POSITIVE NEGATIVE H This test provides only a screen. Positive results should be repeated by a confi rmatory test.[facility]entonUrine Benzodiazepines Screen 2019-10-26 19:04:00* Test Item Value Reference Range Interpretation Comments Urine Benzodiazepines Screen (test code = 07420-1) NEGATIVE NEG ATIVE [facility]entonU[facility] Cocaine Ormkhv5479-71-63 19:04:00* Test Item Value Reference Range Interpretation Comments Urine Cocaine Screen (test code = 3398-5) NEGATIVE NEGATIVE [facility]entonU[facility] Cannabinoids [id number] 19:04:00* Test Item Value Reference Range Interpretation Comments Urine Cannabinoids Screen (test code = 61007-4) POSITIVE NEGATI VE H THESE RESULTS ARE FOR MEDICAL TREATMENT ONLYTHIS REPORT CONTAINS UNCONFIR MED SCREENING RESULTS*POSITIVE RESULTS WILL BE CONFIRMED BY REFERENCE LAB UPON R EQUEST CUT-OFFDRUG CLASS CONCENTRATION ng/mLAmphetamines 1000Methamphetamines 1000Cocaine 300Opiate 300Phencyc lidine 25Cannabinoid 50Barbiturates 300Benzodiazepine 300Methadone 300 This test p rovides only a screen. Positive results should be repeated by a confirmatory navya t.[facility]entonUrine Methadone Cbjlnp1364-99-81 19:04:00* Test Item Value Reference Range Interpretation Comments Urine Methadone Screen (test code = 02860-0) NEGATIVE NEGATIVE THESE RESULTS ARE FOR MEDICAL TREATMENT ONLYTHIS REPORT CONTAINS UNCONFIR MED SCREENING RESULTS*POSITIVE RESULTS WILL BE CONFIRMED BY REFERENCE LAB UPON R EQUEST CUT-OFFDRUG CLASS CONCENTRATION ng/mLAmphetamines 1000Methamphetamines 1000Cocaine Metabolite 300Opiate 300Phencyc lidine 25Cannabinoid 50Barbiturates 300Benzodiazepine 300Methadone 300[facility] HospitalPhosphorus Jfwtq2565-88-14 19:03:00* Test Item Value Reference Range Interpretation Comments Phosphorus Level (test code = EQY1562) 1.9 2.3-4.7 L [facility]entonMagnesium Gaqbn9577-45-44 19:03:00* Test Item Value Reference Range Interpretation Comments Magnesium Level (test code = 90413-9) 1.9 1.3-2.1 [facility]odium Sajqg9506-10-64 19:02:00* Test Item Value Reference Range Interpretation Comments Sodium Level (test code = 2951-2) 131 136-145 L [facility]entonPotassium Umwga2924-98-34 19:02:00* Test Item Value Reference Range Interpretation Comments Potassium Level (test code = 2823-3) 2.7 3.5-5.1 LL Results repeated and called to PAOLA TRAORE at 1901 on 10/26/19 by TRACEY GALINDO. Read back and verified.[facility]entonChloride Ensoi9107-41-21 19:02:00* Test Item Value Reference Range Interpretation Comments Chloride Level (test code = 2075-0) 89 98-107 L [facility]entonCarbon Dioxide Szujj8031-23-97 19:02:00* Test Item Value Reference Range Interpretation Comments Carbon Dioxide Level (test code = 2028-9) 20 22-29 L [facility]entonAnion [id number] 19:02:00* Test Item Value Reference Range Interpretation Comments Anion Gap (test code = 82610-5) 24.7 8-16 H [facility]entonBlood Urea Xxmyvipu2027-51-30 19:02:00* Test Item Value Reference Range Interpretation Comments Blood Urea Nitrogen (test code = 3094-0) 10 7-26 [facility]entonCreatinine2019-12-16 19:02:00* Test Item Value Reference Range Interpretation Comments Creatinine (test code = 2160-0) 0.99 0.72-1.25 [facility]entonBUN/Creatinine Kzxdp1377-95-86 19:02:00* Test Item Value Reference Range Interpretation Comments BUN/Creatinine Ratio (test code = 3097-3) 10 6-25 [facility] DentonEstimat Glomerular Filtration Rate 2019-10-26 19:02:00* Test Item Value Reference Range Interpretation Comments Estimat Glomerular Filtration Rate (test code = 595864329) > 60 >60 Ranges were taken from the National Kidney Disease Education Program and the [facility] Kidney Foundation literature.Reference ranges:60 or greater: Cviunm65-20 ( for 3 consecutive months): Chronic kidney disease 15 or less: Kidney failureTexas Health DentonGlucose Yjfwj4515-43-24 19:02:00* Test Item Value Reference Range Interpretation Comments Glucose Level (test code = ODI7454) 404 74-118 HH Results repeated and called to PAOLA TRAORE at 1901 on 10/26/19 by TRACEY GALINDO. Read back and verified.[facility] DentonCalcium Kkygc5103-26-33 19:02:00* Test Item Value Reference Range Interpretation Comments Calcium Level (test code = 50112-6) 10.1 8.4-10.2 [facility]entonTotal Dnxhmwgsy5131-70-15 19:02:00* Test Item Value Reference Range Interpretation Comments Total Bilirubin (test code = 1975-2) 0.5 0.2-1.2 [facility] DentonAspartate Amino Transf (AST/SGOT) 2019-10-26 19:02:00* Test Item Value Reference Range Interpretation Comments Aspartate Amino Transf (AST/SGOT) (test code = Aspartate Amino Transf (AST/SGOT)) 17 5-34 [facility] DentonAlanine Aminotransferase (ALT/SGPT) 2019-10-26 19:02:00* Test Item Value Reference Range Interpretation Comments Alanine Aminotransferase (ALT/SGPT) (test code = 1742-6) 16 0-55 [facility] DentonTotal Fhymvki3921-61-15 19:02:00* Test Item Value Reference Range Interpretation Comments Total Protein (test code = 2885-2) 7.1 6.5-8.1 [facility]entonAlbumin2019-12-16 19:02:00* Test Item Value Reference Range Interpretation Comments Albumin (test code = 1751-7) 4.4 3.5-5.0 [facility]entonGlobulin2019-12-16 19:02:00* Test Item Value Reference Range Interpretation Comments Globulin (test code = 49125-2) 2.7 2.3-3.5 [facility]entonAlbumin/Globulin Rtrsh2859-16-41 19:02:00 * Test Item Value Reference Range Interpretation Comments Albumin/Globulin Ratio (test code = 1759-0) 1.6 0.8-2.0 [facility]entonAlkaline Ohipdgfxejw3549-22-93 19:02:00* Test Item Value Reference Range Interpretation Comments Alkaline Phosphatase (test code = 6768-6) 103 40-150 [facility]entonUrine Ydaag6783-53-49 18:59:00* Test Item Value Reference Range Interpretation Comments Urine Color (test code = 5778-6) YELLOW YELLOW [facility]entonUrine Pbhuqiz5186-16-21 18:59:00* Test Item Value Reference Range Interpretation Comments Urine Clarity (test code = 21071-1) SL CLOUDY CLEAR H [facility]entonUrine Specific Hcpvsst7597-46-39 18:59:00 * Test Item Value Reference Range Interpretation Comments Urine Specific [place] (test code = 5811-5) 1.010 1.010-1.02 5 [facility]entonUrine [id number] 18:59:00* Test Item Value Reference Range Interpretation Comments Urine pH (test code = 11091-8) 7.5 5-7 [facility]entonU[facility] Leukocyte Txdrjbak4963-43-05 18:59:00* Test Item Value Reference Range Interpretation Comments Urine Leukocyte Esterase (test code = 5799-2) NEGATIVE NEGATIVE [facility]entonUrine Kzbpjcv8054-94-44 18:59:00* Test Item Value Reference Range Interpretation Comments Urine Nitrite (test code = 11151-4) NEGATIVE NEGATIVE [facility]entonUrine Fnhkeom5227-67-09 18:59:00* Test Item Value Reference Range Interpretation Comments Urine Protein (test code = 5804-0) NEGATIVE NEGATIVE [facility]entonUrine Glucose (UA)2019-10-26 18:59:00* Test Item Value Reference Range Interpretation Comments Urine Glucose (UA) (test code = 2349-9) 3+ NEGATIVE H [facility]entonUrine Syzksyy4535-29-28 18:59:00* Test Item Value Reference Range Interpretation Comments Urine Ketones (test code = 64448-0) 2+ NEGATIVE H [facility] Elrncsjgmywi8473-86-35 18:59:00* Test Item Value Reference Range Interpretation Comments Urine Urobilinogen (test code = 22241-5) 1 0.2-1 [facility]entonUrine Mgmbsplge4266-79-94 18:59:00* Test Item Value Reference Range Interpretation Comments Urine Bilirubin (test code = 1978-6) NEGATIVE NEGATIVE [facility]entonUrine Umhxo7357-14-16 18:59:00* Test Item Value Reference Range Interpretation Comments Urine Blood (test code = 23708-4) NEGATIVE NEGATIVE [facility] DentonLactic Acid Mhyra2506-69-16 18:57:00* Test Item Value Reference Range Interpretation Comments Lactic Acid Level (test code = Lactic Acid Level) 8.2 0.5- 2.0 HH Results repeated and called to BERNICE DOMINGUEZ at 1856 on 10/26/19 by TRACEY Castillo Read back and verified.[facility] DentonWhite Blood Kgcal0866-58-61 18:40:00* Test Item Value Reference Range Interpretation Comments White Blood Count (test code = 6690-2) 11.63 4.8-10.8 H [facility]entonRed Blood Vbvxt8999-17-66 18:40:00* Test Item Value Reference Range Interpretation Comments Red Blood Count (test code = 789-8) 4.80 4.3-5.7 [facility]entonHemoglobin2019-12-16 18:40:00* Test Item Value Reference Range Interpretation Comments Hemoglobin (test code = 79321-2) 14.8 14.0-18.0 [facility]entonHematocrit2019-12-16 18:40:00* Test Item Value Reference Range Interpretation Comments Hematocrit (test code = 4544-3) 39.9 38.2-49.6 [facility] DentonMean Corpuscular Nglllb9270-15-33 18:40:00* Test Item Value Reference Range Interpretation Comments Mean Corpuscular Volume (test code = 787-2) 83.1 81-99 [facility]entonMean Corpuscular Ervxvnspez5425-69-12 18:40:00* Test Item Value Reference Range Interpretation Comments Mean Corpuscular Hemoglobin (test code = 785-6) 30.8 28-32 [facility]entonMean Corpuscular Hemoglobin Concent 2019-10-26 18:40:00* Test Item Value Reference Range Interpretation Comments Mean Corpuscular Hemoglobin Concent (test code = 786-4) 37.1 31-35 H [facility]entonRed Cell Distribution Uugvz2677-50-66 18:40:00* Test Item Value Reference Range Interpretation Comments Red Cell Distribution Width (test code = 39024-2) 11.3 11.7 -14.4 L [facility] DentonPlatelet Ihbal7872-40-17 18:40:00* Test Item Value Reference Range Interpretation Comments Platelet Count (test code = 777-3) 281 140-360 [facility]entonNeutrophils (%) (Auto)2019-10-26 18:40:00 * Test Item Value Reference Range Interpretation Comments Neutrophils (%) (Auto) (test code = 95790-5) 76.3 38.7-80.0 [facility]entonLymphocytes (%) (Auto)2019-10-26 18:40:00 * Test Item Value Reference Range Interpretation Comments Lymphocytes (%) (Auto) (test code = 736-9) 16.6 18.0-39.1 L [facility]entonMonocytes (%) (Auto)2019-10-26 18:40:00* Test Item Value Reference Range Interpretation Comments Monocytes (%) (Auto) (test code = 5905-5) 6.2 4.4-11.3 [facility]entonEosinophils (%) (Auto)2019-10-26 18:40:00 * Test Item Value Reference Range Interpretation Comments Eosinophils (%) (Auto) (test code = 713-8) 0.2 0.0-6.0 [facility]entonBasophils (%) (Auto)2019-10-26 18:40:00* Test Item Value Reference Range Interpretation Comments Basophils (%) (Auto) (test code = 706-2) 0.3 0.0-1.0 [facility]entonIM GRANULOCYTES %2019-10-26 18:40:00* Test Item Value Reference Range Interpretation Comments IM GRANULOCYTES % (test code = IM GRANULOCYTES %) 0.4 0.0- 1.0 [facility]entonNeutrophils # (Auto)2019-10-26 18:40:00* Test Item Value Reference Range Interpretation Comments Neutrophils # (Auto) (test code = 751-8) 8.9 2.1-6.9 H [facility]entonLymphocytes # (Auto)2019-10-26 18:40:00* Test Item Value Reference Range Interpretation Comments Lymphocytes # (Auto) (test code = 63598-1) 1.9 1.0-3.2 [facility]entonMonocytes # (Auto)2019-10-26 18:40:00* Test Item Value Reference Range Interpretation Comments Monocytes # (Auto) (test code = 742-7) 0.7 0.2-0.8 [facility]entonEosinophils # (Auto)2019-10-26 18:40:00* Test Item Value Reference Range Interpretation Comments Eosinophils # (Auto) (test code = 711-2) 0.0 0.0-0.4 [facility]entonBasophils # (Auto)2019-10-26 18:40:00* Test Item Value Reference Range Interpretation Comments Basophils # (Auto) (test code = 704-7) 0.0 0.0-0.1 [facility]entonAbsolute Immature Granulocyte (auto 2019-10-26 18:40:00* Test Item Value Reference Range Interpretation Comments Absolute Immature Granulocyte (auto (navya t code = Absolute Immature Granulocyte (auto) 0.05 0-0.1 [facility]entonUrine opiates screening satz4907-94-40 17:30:00* Test Item Value Reference Range Interpretation Comments Urine Opiates Screen (test code = 38816-7) NEGATIVE NEGATIVE ALL TESTS PERFORMED MANUALLY ON LIQVID TOX/SEE TESTTexas Health DentonBarbiturates screen, jlwhv2659-59-02 17:30:00* Test Item Value Reference Range Interpretation Comments Urine Barbiturates Screen (test code = 899020175) NEGATIVE NEGA TIVE [facility]entonUrine phencyclidine detection by screening yhhvqf0573-87-46 17:30:00* Test Item Value Reference Range Interpretation Comments Urine Phencyclidine Screen (test code = 07273-8) NEGATIVE NEGAT [facility]A [facility] amphetamines detection by screen method > 1000 ng/uD1334-96-86 17:30:00* Test Item Value Reference Range Interpretation Comments Urine Amphetamines Screen (test code = 38478-1) NEGATIVE NEGATI VE [facility]entonFluoroscopic procedure less than one hour cokyrotp0600-22-82 17:30:00* Test Item Value Reference Range Interpretation Comments Urine Methamphetamines Screen (test code = Urine Metha mphetamines Screen) POSITIVE NEGATIVE This test provides only a screen. Positive results should be repeated by a confi rmatory test.[facility] benzodiazepines detection by screening cqlgdf5769-91-60 17:30:00* Test Item Value Reference Range Interpretation Comments Urine Benzodiazepines Screen (test code = 16686-2) NEGATIVE NEG ATIVE [facility]entonU[facility] cocaine measurement (mass/volume) 2019-10-26 17:30:00* Test Item Value Reference Range Interpretation Comments Urine Cocaine Screen (test code = 3398-5) NEGATIVE NEGATIVE [facility]entonU[facility] cannabinoids detection by screening prioaq7677-53-87 17:30:00* Test Item Value Reference Range Interpretation Comments Urine Cannabinoids Screen (test code = 44658-2) POSITIVE NEGATI VE THESE RESULTS ARE FOR MEDICAL TREATMENT ONLYTHIS REPORT CONTAINS UNCONFIR MED SCREENING RESULTS*POSITIVE RESULTS WILL BE CONFIRMED BY REFERENCE LAB UPON R EQUEST CUT-OFFDRUG CLASS CONCENTRATION ng/mLAmphetamines 1000Methamphetamines 1000Cocaine 300Opiate 300Phencyc lidine 25Cannabinoid 50Barbiturates 300Benzodiazepine 300Methadone 300 This test p rovides only a screen. Positive results should be repeated by a confirmatory navya t.[facility]entonUrine methadone lpjrea0508-28-86 17:30:00* Test Item Value Reference Range Interpretation Comments Urine Methadone Screen (test code = 38399-2) NEGATIVE NEGATIVE THESE RESULTS ARE FOR MEDICAL TREATMENT ONLYTHIS REPORT CONTAINS UNCONFIR MED SCREENING RESULTS*POSITIVE RESULTS WILL BE CONFIRMED BY REFERENCE LAB UPON R EQUEST CUT-OFFDRUG CLASS CONCENTRATION ng/mLAmphetamines 1000Methamphetamines 1000Cocaine Metabolite 300Opiate 300Phencyc lidine 25Cannabinoid 50Barbiturates 300Benzodiazepine 300Methadone 300[facility] HospitalU[facility] opiates screening acvr4430-71-15 17:30:00* Test Item Value Reference Range Interpretation Comments Urine Opiates Screen (test code = 59663-8) NEGATIVE NEGATIVE ALL TESTS PERFORMED MANUALLY ON LIQVID TOX/SEE TESTTexas Health DentonBarbiturates screen, otffa1345-57-41 17:30:00* Test Item Value Reference Range Interpretation Comments Urine Barbiturates Screen (test code = 478506124) NEGATIVE NEGA TIVE [facility]entonUrine phencyclidine detection by screening oasxcz8844-40-22 17:30:00* Test Item Value Reference Range Interpretation Comments Urine Phencyclidine Screen (test code = 51059-8) NEGATIVE NEGAT JESSIKA [facility]entonU[facility] amphetamines detection by screen method > 1000 ng/vE2537-17-65 17:30:00* Test Item Value Reference Range Interpretation Comments Urine Amphetamines Screen (test code = 84728-4) NEGATIVE NEGATI VE [facility]entonFluoroscopic procedure less than one hour jqbgkxtg4366-21-20 17:30:00* Test Item Value Reference Range Interpretation Comments Urine Methamphetamines Screen (test code = Urine Metha mphetamines Screen) POSITIVE NEGATIVE This test provides only a screen. Positive results should be repeated by a confi rmatory test.[facility]entonUrine benzodiazepines detection by screening tunmaz2763-71-60 17:30:00* Test Item Value Reference Range Interpretation Comments Urine Benzodiazepines Screen (test code = 20655-2) NEGATIVE NEG ATIVE [facility]entonU[facility] cocaine measurement (mass/volume) 2019-10-26 17:30:00* Test Item Value Reference Range Interpretation Comments Urine Cocaine Screen (test code = 3398-5) NEGATIVE NEGATIVE [facility]entonUrine cannabinoids detection by screening gqtceo0639-01-61 17:30:00* Test Item Value Reference Range Interpretation Comments Urine Cannabinoids Screen (test code = 55763-1) POSITIVE NEGATI VE THESE RESULTS ARE FOR MEDICAL TREATMENT ONLYTHIS REPORT CONTAINS UNCONFIR MED SCREENING RESULTS*POSITIVE RESULTS WILL BE CONFIRMED BY REFERENCE LAB UPON R EQUEST CUT-OFFDRUG CLASS CONCENTRATION ng/mLAmphetamines 1000Methamphetamines 1000Cocaine 300Opiate 300Phencyc lidine 25Cannabinoid 50Barbiturates 300Benzodiazepine 300Methadone 300 This test p rovides only a screen. Positive results should be repeated by a confirmatory navya t.[facility]entonUrine methadone teqcke4228-08-51 17:30:00* Test Item Value Reference Range Interpretation Comments Urine Methadone Screen (test code = 51639-6) NEGATIVE NEGATIVE THESE RESULTS ARE FOR MEDICAL TREATMENT ONLYTHIS REPORT CONTAINS UNCONFIR MED SCREENING RESULTS*POSITIVE RESULTS WILL BE CONFIRMED BY REFERENCE LAB UPON R EQUEST CUT-OFFDRUG CLASS CONCENTRATION ng/mLAmphetamines 1000Methamphetamines 1000Cocaine Metabolite 300Opiate 300Phencyc lidine 25Cannabinoid 50Barbiturates 300Benzodiazepine 300Methadone 300[facility] HospitalFluoroscopic procedure less than one hour rbgbxott2825-10-80 17:18:00* Test Item Value Reference Range Interpretation Comments Lactic Acid Level (test code = Lactic Acid Level) 8.2 0.5- 2.0 Results repeated and called to BERNICE CASE at 1856 on 10/26/19 by TRACEY Castillo Read back and verified.[facility]entonPhosphorus iqcunbengwd7286-79-35 17:18:00* Test Item Value Reference Range Interpretation Comments Phosphorus Level (test code = VMV6224) 1.9 2.3-4.7 [facility] plasma magnesium measurement (mass/volume)2019-10-26 17:18:00* Test Item Value Reference Range Interpretation Comments Magnesium Level (test code = 71958-2) 1.9 1.3-2.1 [facility]erum or plasma ethanol measurement (mass/volume)2019-10-26 17:18:00* Test Item Value Reference Range Interpretation Comments Ethyl Alcohol Level (test code = 5643-2) < 10.0 0.0-10.0 [facility]entonFluoroscopic procedure less than one hour nvkbbasr4005-56-19 17:18:00* Test Item Value Reference Range Interpretation Comments Lactic Acid Level (test code = Lactic Acid Level) 8.2 0.5- 2.0 Results repeated and called to BERNICE DOMINGUEZ at 1856 on 10/26/19 by TRACEY Castillo Read back and verified.[facility]entonPhosphorus gfbdaoldbfb2822-95-47 17:18:00* Test Item Value Reference Range Interpretation Comments Phosphorus Level (test code = XNM7589) 1.9 2.3-4.7 [facility]erum or plasma magnesium measurement (mass/volume)2019-10-26 17:18:00* Test Item Value Reference Range Interpretation Comments Magnesium Level (test code = 09676-4) 1.9 1.3-2.1 [facility]um or plasma ethanol measurement (mass/volume)2019-10-26 17:18:00* Test Item Value Reference Range Interpretation Comments Ethyl Alcohol Level (test code = 5643-2) < 10.0 0.0-10.0 [facility]entonBlood Agflmct4295-40-83 18:35:00* Test Item Value Reference Range Interpretation Comments Blood Culture (test code = 39113716) NO GROWTH AFTER 5 DAYS, FINAL REPORT [facility]entonBedside Ghzfuca5558-63-96 12:02:00* Test Item Value Reference Range Interpretation Comments Bedside Glucose (test code = 07587-8) 152 70-120 H Meter ID: [id number] Health DentonThyroid Stimulating Hormone (TSH)2019-06-24 05:52:00* Test Item Value Reference Range Interpretation Comments Thyroid Stimulating Hormone (TSH) (test code = 90808-5) 0.334 0.350-4.940 L [facility]entonThyroid Stimulating Hormone (TSH) 2019-06-24 05:52:00* Test Item Value Reference Range Interpretation Comments Thyroid Stimulating Hormone (TSH) (test code = 09987-4) 0.334 0.350-4.940 L [facility]entonHemoglobin A1c Pbzwwqo1751-28-02 05:43:00 * Test Item Value Reference Range Interpretation Comments Hemoglobin A1c Percent (test code = Hemoglobin A1c Percent) 10.1 4.0-7.0 H [facility]entonHemoglobin A1c Izttwqn3174-02-76 05:43:00 * Test Item Value Reference Range Interpretation Comments Hemoglobin A1c Percent (test code = Hemoglobin A1c Percent) 10.1 4.0-7.0 H [facility]entonWhite Blood Dqgdn7093-15-27 05:21:00* Test Item Value Reference Range Interpretation Comments White Blood Count (test code = 6690-2) 7.14 4.8-10.8 [facility]entonRed Blood Rtttp6456-51-40 05:21:00* Test Item Value Reference Range Interpretation Comments Red Blood Count (test code = 789-8) 4.21 4.3-5.7 L [facility]entonHemoglobin2019-08-14 05:21:00* Test Item Value Reference Range Interpretation Comments Hemoglobin (test code = 05946-7) 12.9 14.0-18.0 L [facility]entonHematocrit2019-08-14 05:21:00* Test Item Value Reference Range Interpretation Comments Hematocrit (test code = 4544-3) 34.0 38.2-49.6 L [facility]entonMean Corpuscular Houbub0264-02-39 05:21:00* Test Item Value Reference Range Interpretation Comments Mean Corpuscular Volume (test code = 787-2) 80.8 81-99 L [facility]entonMean Corpuscular Vsfwryijpp8726-57-35 05:21:00* Test Item Value Reference Range Interpretation Comments Mean Corpuscular Hemoglobin (test code = 785-6) 30.6 28-32 [facility]entonMean Corpuscular Hemoglobin Concent 2019-06-24 05:21:00* Test Item Value Reference Range Interpretation Comments Mean Corpuscular Hemoglobin Concent (test code = 786-4) 37.9 31-35 H [facility]entonRed Cell Distribution Eqyml2229-87-26 05:21:00* Test Item Value Reference Range Interpretation Comments Red Cell Distribution Width (test code = 72456-9) 11.8 11.7 -14.4 [facility]entonPlatelet Mdfni4106-44-90 05:21:00* Test Item Value Reference Range Interpretation Comments Platelet Count (test code = 777-3) 179 140-360 [facility]entonNeutrophils (%) (Auto)2019-06-24 05:21:00 * Test Item Value Reference Range Interpretation Comments Neutrophils (%) (Auto) (test code = 50385-4) 45.2 38.7-80.0 [facility]entonLymphocytes (%) (Auto)2019-06-24 05:21:00 * Test Item Value Reference Range Interpretation Comments Lymphocytes (%) (Auto) (test code = 736-9) 46.8 18.0-39.1 H [facility]entonMonocytes (%) (Auto)2019-06-24 05:21:00* Test Item Value Reference Range Interpretation Comments Monocytes (%) (Auto) (test code = 5905-5) 6.2 4.4-11.3 [facility]entonEosinophils (%) (Auto)2019-06-24 05:21:00 * Test Item Value Reference Range Interpretation Comments Eosinophils (%) (Auto) (test code = 713-8) 1.1 0.0-6.0 [facility]entonBasophils (%) (Auto)2019-06-24 05:21:00* Test Item Value Reference Range Interpretation Comments Basophils (%) (Auto) (test code = 706-2) 0.3 0.0-1.0 [facility]entonIM GRANULOCYTES %2019-06-24 05:21:00* Test Item Value Reference Range Interpretation Comments IM GRANULOCYTES % (test code = IM GRANULOCYTES %) 0.4 0.0- 1.0 [facility]entonNeutrophils # (Auto)2019-06-24 05:21:00* Test Item Value Reference Range Interpretation Comments Neutrophils # (Auto) (test code = 751-8) 3.2 2.1-6.9 [facility]entonLymphocytes # (Auto)2019-06-24 05:21:00* Test Item Value Reference Range Interpretation Comments Lymphocytes # (Auto) (test code = 94078-2) 3.3 1.0-3.2 H [facility]entonMonocytes # (Auto)2019-06-24 05:21:00* Test Item Value Reference Range Interpretation Comments Monocytes # (Auto) (test code = 742-7) 0.4 0.2-0.8 [facility]entonEosinophils # (Auto)2019-06-24 05:21:00* Test Item Value Reference Range Interpretation Comments Eosinophils # (Auto) (test code = 711-2) 0.1 0.0-0.4 [facility]entonBasophils # (Auto)2019-06-24 05:21:00* Test Item Value Reference Range Interpretation Comments Basophils # (Auto) (test code = 704-7) 0.0 0.0-0.1 [facility]entonAbsolute Immature Granulocyte (auto 2019-06-24 05:21:00* Test Item Value Reference Range Interpretation Comments Absolute Immature Granulocyte (auto (navya t code = Absolute Immature Granulocyte (auto) 0.03 0-0.1 [facility]entonBlood Wpduztg4163-40-36 18:35:00* Test Item Value Reference Range Interpretation Comments Blood Culture (test code = 58748552) NO GROWTH AFTER 24 HOURS [facility]inte[facility] Sdiwq7565-68-86 17:05:00* Test Item Value Reference Range Interpretation Comments Sodium Level (test code = 2951-2) 126 136-145 L [facility]entonPotassium Teboe5839-52-88 17:05:00* Test Item Value Reference Range Interpretation Comments Potassium Level (test code = 2823-3) 3.5 3.5-5.1 [facility]entonChloride Mrqft9511-49-55 17:05:00* Test Item Value Reference Range Interpretation Comments Chloride Level (test code = 2075-0) 95 98-107 L [facility]entonCarbon Dioxide Wfpwd5514-66-92 17:05:00* Test Item Value Reference Range Interpretation Comments Carbon Dioxide Level (test code = 2028-9) 19 22-29 L [facility]entonAnion Cal5333-43-05 17:05:00* Test Item Value Reference Range Interpretation Comments Anion Gap (test code = 57001-6) 15.5 8-16 [facility]entonBlood Urea Lgipirmz9767-30-22 17:05:00* Test Item Value Reference Range Interpretation Comments Blood Urea Nitrogen (test code = 3094-0) 7 7-26 [facility]entonCreatinine2019-08-13 17:05:00* Test Item Value Reference Range Interpretation Comments Creatinine (test code = 2160-0) 0.78 0.72-1.25 [facility]entonBUN/Creatinine Rcarg0169-83-23 17:05:00* Test Item Value Reference Range Interpretation Comments BUN/Creatinine Ratio (test code = 3097-3) 9 6-25 [facility]entonEstimat Glomerular Filtration Rate 2019-06-23 17:05:00* Test Item Value Reference Range Interpretation Comments Estimat Glomerular Filtration Rate (test code = 450210616) > 60 >60 Ranges were taken from the National Kidney Disease Education Program and the [facility] [employer] literature.Reference ranges:60 or greater: Dpviib57-42 ( for 3 consecutive months): Chronic kidney disease 15 or less: Kidney failureTexas Health DentonGlucose Wnhmw4251-58-18 17:05:00* Test Item Value Reference Range Interpretation Comments Glucose Level (test code = FDS7125) 163 74-118 H [facility]entonCalcium Iupox4803-54-90 17:05:00* Test Item Value Reference Range Interpretation Comments Calcium Level (test code = 46256-4) 8.3 8.4-10.2 L [facility]entonMagnesium Xolet4470-27-26 17:05:00* Test Item Value Reference Range Interpretation Comments Magnesium Level (test code = 42809-2) 2.1 1.3-2.1 [facility]entonTotal Huczdfzid6818-71-25 06:36:00* Test Item Value Reference Range Interpretation Comments Total Bilirubin (test code = 1975-2) 1.6 0.2-1.2 H [facility] DentonAspartate Amino Transf (AST/SGOT) 2019-06-23 06:36:00* Test Item Value Reference Range Interpretation Comments Aspartate Amino Transf (AST/SGOT) (test code = Aspartate Amino Transf (AST/SGOT)) 9 5-34 [facility]entonAlanine Aminotransferase (ALT/SGPT) 2019-06-23 06:36:00* Test Item Value Reference Range Interpretation Comments Alanine Aminotransferase (ALT/SGPT) (test code = 1742-6) 10 0-55 [facility]entonTotal Ighwswc0659-39-87 06:36:00* Test Item Value Reference Range Interpretation Comments Total Protein (test code = 2885-2) 6.0 6.5-8.1 L [facility]entonAlbumin2019-08-13 06:36:00* Test Item Value Reference Range Interpretation Comments Albumin (test code = 1751-7) 3.7 3.5-5.0 [facility]entonGlobulin2019-08-13 06:36:00* Test Item Value Reference Range Interpretation Comments Globulin (test code = 29132-8) 2.3 2.3-3.5 [facility]entonAlbumin/Globulin Phdkt4036-04-62 06:36:00 * Test Item Value Reference Range Interpretation Comments Albumin/Globulin Ratio (test code = 1759-0) 1.6 0.8-2.0 [facility] DentonAlkaline Wntrbfswxrz3795-50-81 06:36:00* Test Item Value Reference Range Interpretation Comments Alkaline Phosphatase (test code = 6768-6) 79 40-150 [facility]entonPhosphorus Lzvkw4774-08-01 06:05:00* Test Item Value Reference Range Interpretation Comments Phosphorus Level (test code = RWL1280) < 0.7 2.3-4.7 L [facility]entonCreatine Kinase CH3637-15-25 05:43:00* Test Item Value Reference Range Interpretation Comments Creatine Kinase MB (test code = 27759-8) 1.20 0-5.0 [facility]entonTroponin O1010-31-72 05:43:00* Test Item Value Reference Range Interpretation Comments Troponin I (test code = ZFY4831) < 0.001 0-0.300 [facility]entonCreatine Hrupcb0974-27-03 05:34:00* Test Item Value Reference Range Interpretation Comments Creatine Kinase (test code = 2157-6) 32 30-200 [facility]entonArterial Blood eF6564-00-82 20:25:00* Test Item Value Reference Range Interpretation Comments Arterial Blood pH (test code = 2744-1) 7.16 7.31-7.41 LL Results called to MABEL WEBB at 2014 on 06/22/19 by Huan Champion. RB [place].[facility]entonArterial Blood Partial Pressure PM16407-52-89 20:25:00* Test Item Value Reference Range Interpretation Comments Arterial Blood Partial Pressure CO2 (test code = 2019-8) 15 41-51 L [facility]entonArterial Blood Partial Pressure O2 2019-06-22 20:25:00* Test Item Value Reference Range Interpretation Comments Arterial Blood Partial Pressure O2 (test code = 2018-) 125 80-105 H [facility]entonArterial Blood OGR06051-65-83 20:25:00* Test Item Value Reference Range Interpretation Comments Arterial Blood HCO3 (test code = 1960-4) 5 23-28 L [facility]entonArterial Blood Base Kirbhr2318-20-79 20:25:00* Test Item Value Reference Range Interpretation Comments Arterial Blood Base Excess (test code = 1925-7) -23.0 -2-3 L [facility]entonArterial Blood Oxygen Saturation 2019-06-22 20:25:00* Test Item Value Reference Range Interpretation Comments Arterial Blood Oxygen Saturation (test code = 2708-6) 98.0 95-98 [facility]entonFiO22019-08-12 20:25:00* Test Item Value Reference Range Interpretation Comments FiO2 (test code = FiO2) 21 PT IS ON ROOM AIRTexas Health DentonArterial Blood pH 2019-06-22 20:25:00* Test Item Value Reference Range Interpretation Comments Arterial Blood pH (test code = 2744-1) 7.16 7.31-7.41 LL Results called to MABEL WEBB at 2014 on 06/22/19 by Huan Champion. RB [place].[facility]entonArterial Blood Partial Pressure AC14616-73-21 20:25:00* Test Item Value Reference Range Interpretation Comments Arterial Blood Partial Pressure CO2 (test code = 2019-06) 15 41-51 L [facility]entonArterial Blood Partial Pressure O2 2019-06-22 20:25:00* Test Item Value Reference Range Interpretation Comments Arterial Blood Partial Pressure O2 (test code = 2019-06) 125 80-105 H [facility]entonArterial Blood [id number] 20:25:00* Test Item Value Reference Range Interpretation Comments Arterial Blood HCO3 (test code = 1960-4) 5 23-28 L [facility]entonArterial Blood Base Vpwsef0106-16-30 20:25:00* Test Item Value Reference Range Interpretation Comments Arterial Blood Base Excess (test code = 1925-7) -23.0 -2-3 L [facility]entonArterial Blood Oxygen Saturation 2019-06-22 20:25:00* Test Item Value Reference Range Interpretation Comments Arterial Blood Oxygen Saturation (test code = 2708-6) 98.0 95-98 [facility]entonFiO22019-08-12 20:25:00* Test Item Value Reference Range Interpretation Comments FiO2 (test code = FiO2) 21 PT IS ON ROOM AIRTexas Health DentonUrine CDS1212-47-07 19:50:00* Test Item Value Reference Range Interpretation Comments Urine WBC (test code = 5821-4) NONE 0-5 [facility]entonU[facility] [id number] 19:50:00* Test Item Value Reference Range Interpretation Comments Urine RBC (test code = 21957-1) NONE 0-5 [facility]entonU[facility] Yfmuhcoc5087-79-20 19:50:00* Test Item Value Reference Range Interpretation Comments Urine Bacteria (test code = 40303-2) NONE NONE [facility]entonU[facility] Epithelial Qlivj8893-09-26 19:50:00 * Test Item Value Reference Range Interpretation Comments Urine Epithelial Cells (test code = 82313-6) NONE NONE [facility]entonUrine Opiates Vjdqsy9921-89-68 19:41:00* Test Item Value Reference Range Interpretation Comments Urine Opiates Screen (test code = 26860-5) NEGATIVE NEGATIVE ALL TESTS PERFORMED MANUALLY ON BIORAD TOX/SEE TEST --- 06/22/191939 ---OPIATE S previously reported as: ALL TESTS PERFORMED MANUALLY ON BIORAD TOX/SEE TEST [facility]entonUrine Barbiturates Frdlhp7377-04-72 19:41:00* Test Item Value Reference Range Interpretation Comments Urine Barbiturates Screen (test code = 268237548) NEGATIVE NEGA TIVE [facility]entonUrine Phencyclidine Zhccmf2281-91-69 19:41:00* Test Item Value Reference Range Interpretation Comments Urine Phencyclidine Screen (test code = 50044-4) NEGATIVE NEGAT JESSIKA [facility]entonUrine Amphetamines Ibhqdg9140-76-95 19:41:00* Test Item Value Reference Range Interpretation Comments Urine Amphetamines Screen (test code = 11533-7) NEGATIVE NEGATI VE [facility]entonUrine Methamphetamines Fnmktt1074-98-78 19:41:00* Test Item Value Reference Range Interpretation Comments Urine Methamphetamines Screen (test code = Urine Metha mphetamines Screen) NEGATIVE NEGATIVE [facility]entonU[facility] Benzodiazepines Uvkokq7507-15-42 19:41:00* Test Item Value Reference Range Interpretation Comments Urine Benzodiazepines Screen (test code = 46466-9) NEGATIVE NEG ATIVE [facility]entonU[facility] Cocaine Xscwjx5087-95-60 19:41:00* Test Item Value Reference Range Interpretation Comments Urine Cocaine Screen (test code = 3398-5) NEGATIVE NEGATIVE [facility]entonUrine Cannabinoids Secdfu5877-60-75 19:41:00* Test Item Value Reference Range Interpretation Comments Urine Cannabinoids Screen (test code = 73680-5) POSITIVE NEGATI VE H THESE RESULTS ARE [...] 300Phencyclidine 25C annabinoid 50Barbiturates 300Benzodiazepine 300Methadone 300[facility] HospitalUrine Methadone Pujmfu4962-32-60 19:41:00* Test Item Value Reference Range Interpretation Comments Urine Methadone Screen (test code = 32314-0) NEGATIVE NEGATIVE THESE RESULTS ARE FOR MEDICAL TREATMENT ONLYTHIS REPORT CONTAINS UNCONFIR MED SCREENING RESULTS*POSITIVE RESULTS WILL BE CONFIRMED BY REFERENCE LAB UPON R EQUEST CUT-OFFDRUG CLASS CONCENTRATION ng/mLAmphetamines 1000Methamphetamines 1000Cocaine Metabolite 300Opiate 300Phencyc lidine 25Cannabinoid 50Barbiturates 300Benzodiazepine 300Methadone 300[facility] HospitalUrine Zdamu6049-16-29 19:39:00* Test Item Value Reference Range Interpretation Comments Urine Color (test code = 5778-6) YELLOW YELLOW [facility] Nslursl4532-39-86 19:39:00* Test Item Value Reference Range Interpretation Comments Urine Clarity (test code = 02423-8) SL CLOUDY CLEAR H [facility]entonUrine Specific Zgouttg9111-50-60 19:39:00 * Test Item Value Reference Range Interpretation Comments Urine Specific [place] (test code = 5811-5) >=1.030 1.010-1.02 5 [facility]entonUrine vT2630-98-11 19:39:00* Test Item Value Reference Range Interpretation Comments Urine pH (test code = 35009-2) 6 5-7 [facility] Leukocyte Bwewoupn3165-86-33 19:39:00* Test Item Value Reference Range Interpretation Comments Urine Leukocyte Esterase (test code = 61174-6) NEGATIVE NEGATIV E [facility]entonU[facility] Wbxsxhl7479-40-92 19:39:00* Test Item Value Reference Range Interpretation Comments Urine Nitrite (test code = 47714-8) NEGATIVE NEGATIVE [facility]entonU[facility] Fthcrko4123-07-96 19:39:00* Test Item Value Reference Range Interpretation Comments Urine Protein (test code = 63503-4) 1+ NEGATIVE H [facility]entonUrine Glucose (UA)2019-06-22 19:39:00* Test Item Value Reference Range Interpretation Comments Urine Glucose (UA) (test code = 11846-5) 2+ NEGATIVE H [facility]entonU[facility] Vbhjcop7579-78-58 19:39:00* Test Item Value Reference Range Interpretation Comments Urine Ketones (test code = 63670-5) 2+ NEGATIVE H [facility]entonU[facility] Abpflmcidges4412-56-08 19:39:00* Test Item Value Reference Range Interpretation Comments Urine Urobilinogen (test code = 56480-8) 0.2 0.2-1 [facility] Pqsyfevze3497-29-53 19:39:00* Test Item Value Reference Range Interpretation Comments Urine Bilirubin (test code = 1977-8) NEGATIVE NEGATIVE [facility] Ylawz8838-49-53 19:39:00* Test Item Value Reference Range Interpretation Comments Urine Blood (test code = 59628-2) NEGATIVE NEGATIVE [facility] DentonCHEST SINGLE (PORTABLE)2019-06-22 19:18:00 [facility] [address] [address] Patient Name: KEVIN LOMELI MR #: [id number] : 1995 Age/Sex: 24/M Req #: [id number] Adm Physician: Ordered by: OLIVA JACOB MD Report #: [id number] Location: ER Room/Bed: Procedure: [id number] DX/C HEST SINGLE (PORTABLE) Exam Date: 06/22/19 Exam Time : 1800 REPORT STATUS: Signed EXA M: CHEST SINGLE (PORTABLE) DATE: 06/22/2019 4:25 PM INDICATION: N/V ? DKA [id number] COMPARISON: Chest x-ray, 05/19/2019 FINDINGS: Lines and tubes: None Heart size normal. No focal pul monary opacity, pleural effusion or pneumothorax. Upper abdomen unremarkabl e. No acute bony abnormality. IMPRESSION: No evidence for acute disease. Signed by: Dr. Keyon Darling M.D. on 06/22/2019 7:18 PM Dictated By: KEYON DARLING MD 17 Transcribed By: GABY on 06/22/191917 COPY TO: OLIVA JACOB MD Amylase Fxmfg3599-31-25 18:58:00* Test Item Value Reference Range Interpretation Comments Amylase Level (test code = 1798-8) 15 25-125 L [facility]2019-[facility]12 18:58:00* Test Item Value Reference Range Interpretation Comments Lipase (test code = 3040-3) < 4 8-78 L [facility]entonAmylase Bawzy4313-38-02 18:58:00* Test Item Value Reference Range Interpretation Comments Amylase Level (test code = 1798-8) 15 25-125 L [facility]entonLipase2019-08-12 18:58:00* Test Item Value Reference Range Interpretation Comments Lipase (test code = 3040-3) < 4 8-78 L [facility]entonLactic Acid Lyaqv3303-72-59 18:45:00* Test Item Value Reference Range Interpretation Comments Lactic Acid Level (test code = Lactic Acid Level) 17.9 4.5- 19.8 [facility]entonProthrombin Evrq0168-85-00 18:43:00* Test Item Value Reference Range Interpretation Comments Prothrombin Time (test code = 5902-2) 14.9 11.9-14.5 H [facility]entonProthromb Time International Ratio 2019-06-22 18:43:00* Test Item Value Reference Range Interpretation Comments Prothromb Time International Ratio (test code = 6301-6) 1.12 Oral Anticoagulant Therapy INR Values:1. Low Intensity Therapy 1.5 - 2.02 . Moderate Intensity Therapy 2.0 - 3.03. High Intensity Therapy(1) 2.5 - 3. 54. High Intensity Therapy(2) 3.0 - 4.05. Panic Value INR > 5.0 [facility]entonAct[facility] Partial Thromboplast Time 2019-06-22 18:43:00* Test Item Value Reference Range Interpretation Comments Activated Partial Thromboplast Time (test code = 22164-1) 29.4 23.8-35.5 [facility]entonProthrombin Fivw9871-44-24 18:43:00* Test Item Value Reference Range Interpretation Comments Prothrombin Time (test code = 5902-2) 14.9 11.9-14.5 H [facility]entonProthromb Time International Ratio 2019-06-22 18:43:00* Test Item Value Reference Range Interpretation Comments Prothromb Time International Ratio (test code = 6301-6) 1.12 Oral Anticoagulant Therapy INR Values:1. Low Intensity Therapy 1.5 - 2.02 . Moderate Intensity Therapy 2.0 - 3.03. High Intensity Therapy(1) 2.5 - 3. 54. High Intensity Therapy(2) 3.0 - 4.05. Panic Value INR > 5.0 [facility]entonAct[facility] Partial Thromboplast Time 2019-06-22 18:43:00* Test Item Value Reference Range Interpretation Comments Activated Partial Thromboplast Time (test code = 14802-5) 29.4 23.8-35.5 [facility]entonBedside Yzmjcde0772-13-65 12:05:00* Test Item Value Reference Range Interpretation Comments Bedside Glucose (test code = 64796-0) 288 70-120 H Meter ID: [id number] Scott & White [facility] Pointeodium Level 2019-05-21 05:35:00* Test Item Value Reference Range Interpretation Comments Sodium Level (test code = 2951-2) 130 136-145 L [facility]entonPotassium Yskbe6954-11-44 05:35:00* Test Item Value Reference Range Interpretation Comments Potassium Level (test code = 2823-3) 3.1 3.5-5.1 L [facility]entonChloride Bpwgm9554-06-85 05:35:00* Test Item Value Reference Range Interpretation Comments Chloride Level (test code = 2075-0) 92 98-107 L [facility]entonCarbon Dioxide Mpptg8551-67-51 05:35:00* Test Item Value Reference Range Interpretation Comments Carbon Dioxide Level (test code = 2028-9) 27 22-29 [facility]entonAnion Fdw9457-85-18 05:35:00* Test Item Value Reference Range Interpretation Comments Anion Gap (test code = 81313-8) 14.1 8-16 [facility]entonBlood Urea Gaqzkpci7256-30-95 05:35:00* Test Item Value Reference Range Interpretation Comments Blood Urea Nitrogen (test code = 3094-0) 8 - [facility]entonCreatinine2019-07-11 05:35:00* Test Item Value Reference Range Interpretation Comments Creatinine (test code = 2160-0) 0.70 0.72-1.25 L [facility]entonBUN/Creatinine Rnric7066-61-33 05:35:00* Test Item Value Reference Range Interpretation Comments BUN/Creatinine Ratio (test code = 3097-3) 11 05-05 [facility]entonEstimat Glomerular Filtration Rate 2019-05-21 05:35:00* Test Item Value Reference Range Interpretation Comments Estimat Glomerular Filtration Rate (test code = 590873892) > 60 >60 Ranges were taken from the National Kidney Disease Education Program and the [facility] Foundation literature.Reference ranges:60 or greater: Qshksi84-36 ( for 3 consecutive months): Chronic kidney disease 15 or less: Kidney failureTexas Health DentonGlucose Qsciz3832-84-88 05:35:00* Test Item Value Reference Range Interpretation Comments Glucose Level (test code = KEY9000) 165 74-118 H [facility]entonCalcium Obvhu8161-47-64 05:35:00* Test Item Value Reference Range Interpretation Comments Calcium Level (test code = 47938-6) 7.9 8.4-10.2 L [facility]entonMagnesium Rvuos7883-54-39 05:35:00* Test Item Value Reference Range Interpretation Comments Magnesium Level (test code = 26979-7) 2.3 1.3-2.1 H [facility]entonThyroid Stimulating Hormone (TSH) 2019-05-20 06:26:00* Test Item Value Reference Range Interpretation Comments Thyroid Stimulating Hormone (TSH) (test code = 89751-3) 0.659 0.350-4.940 [facility]entonWhite Blood Njjqz0695-85-04 05:30:00* Test Item Value Reference Range Interpretation Comments White Blood Count (test code = 6690-2) 16.62 4.8-10.8 H [facility]entonRed Blood Xhfce8777-92-89 05:30:00* Test Item Value Reference Range Interpretation Comments Red Blood Count (test code = 789-8) 4.89 4.3-5.7 [facility]entonHemoglobin2019-07-10 05:30:00* Test Item Value Reference Range Interpretation Comments Hemoglobin (test code = 95199-1) 15.3 14.0-18.0 [facility]entonHematocrit2019-07-10 05:30:00* Test Item Value Reference Range Interpretation Comments Hematocrit (test code = 4544-3) 40.6 38.2-49.6 [facility]entonMean Corpuscular Cgbqur8379-01-00 05:30:00* Test Item Value Reference Range Interpretation Comments Mean Corpuscular Volume (test code = 787-2) 83.0 81-99 VERIFIED PREVIOUS RESULTSTexas Health DentonMean Corpuscular Zteordmgho4264-20-24 05:30:00* Test Item Value Reference Range Interpretation Comments Mean Corpuscular Hemoglobin (test code = 785-6) 31.3 28-32 [facility]entonMean Corpuscular Hemoglobin Concent 2019-05-20 05:30:00* Test Item Value Reference Range Interpretation Comments Mean Corpuscular Hemoglobin Concent (test code = 786-4) 37.7 31-35 H [facility]entonRed Cell Distribution Ovehu5293-87-13 05:30:00* Test Item Value Reference Range Interpretation Comments Red Cell Distribution Width (test code = 21024-5) 11.0 11.7 -14.4 L [facility] DentonPlatelet Yxkrl5531-63-40 05:30:00* Test Item Value Reference Range Interpretation Comments Platelet Count (test code = 777-3) 194 140-360 [facility]entonNeutrophils (%) (Auto)2019-05-20 05:30:00 * Test Item Value Reference Range Interpretation Comments Neutrophils (%) (Auto) (test code = 13885-9) 84.7 38.7-80.0 H [facility]entonLymphocytes (%) (Auto)2019-05-20 05:30:00 * Test Item Value Reference Range Interpretation Comments Lymphocytes (%) (Auto) (test code = 736-9) 7.1 18.0-39.1 L [facility]entonMonocytes (%) (Auto)2019-05-20 05:30:00* Test Item Value Reference Range Interpretation Comments Monocytes (%) (Auto) (test code = 5905-5) 7.2 4.4-11.3 [facility]entonEosinophils (%) (Auto)2019-05-20 05:30:00 * Test Item Value Reference Range Interpretation Comments Eosinophils (%) (Auto) (test code = 713-8) 0.1 0.0-6.0 [facility]entonBasophils (%) (Auto)2019-05-20 05:30:00* Test Item Value Reference Range Interpretation Comments Basophils (%) (Auto) (test code = 706-2) 0.2 0.0-1.0 [facility]entonIM GRANULOCYTES %2019-05-20 05:30:00* Test Item Value Reference Range Interpretation Comments IM GRANULOCYTES % (test code = IM GRANULOCYTES %) 0.7 0.0- 1.0 [facility]entonNeutrophils # (Auto)2019-05-20 05:30:00* Test Item Value Reference Range Interpretation Comments Neutrophils # (Auto) (test code = 751-8) 14.1 2.1-6.9 H [facility]entonLymphocytes # (Auto)2019-05-20 05:30:00* Test Item Value Reference Range Interpretation Comments Lymphocytes # (Auto) (test code = 86523-0) 1.2 1.0-3.2 [facility]entonMonocytes # (Auto)2019-05-20 05:30:00* Test Item Value Reference Range Interpretation Comments Monocytes # (Auto) (test code = 742-7) 1.2 0.2-0.8 H [facility]entonEosinophils # (Auto)2019-05-20 05:30:00* Test Item Value Reference Range Interpretation Comments Eosinophils # (Auto) (test code = 711-2) 0.0 0.0-0.4 [facility]entonBasophils # (Auto)2019-05-20 05:30:00* Test Item Value Reference Range Interpretation Comments Basophils # (Auto) (test code = 704-7) 0.0 0.0-0.1 [facility]entonAbsolute Immature Granulocyte (auto 2019-05-20 05:30:00* Test Item Value Reference Range Interpretation Comments Absolute Immature Granulocyte (auto (navya t code = Absolute Immature Granulocyte (auto) 0.12 0-0.1 H [facility]entonUrine [id number] 11:49:00* Test Item Value Reference Range Interpretation Comments Urine WBC (test code = 5821-4) 6-10 0-5 H [facility]entonUrine AFE8652-05-65 11:49:00* Test Item Value Reference Range Interpretation Comments Urine RBC (test code = 43741-1) 6-10 0-5 H [facility]entonUrine Codlmiem4651-37-39 11:49:00* Test Item Value Reference Range Interpretation Comments Urine Bacteria (test code = 19456-8) FEW NONE [facility]entonUrine Epithelial Gbwgq9952-42-45 11:49:00 * Test Item Value Reference Range Interpretation Comments Urine Epithelial Cells (test code = 21187-6) RARE NONE [facility]entonUrine Transitional Epithelial Cells 2019-05-19 11:49:00* Test Item Value Reference Range Interpretation Comments Urine Transitional Epithelial Cells (test code = 8249-5) FEW NONE [facility]entonUrine Fine Granular Hhovi2103-98-31 11:49:00* Test Item Value Reference Range Interpretation Comments Urine Fine Granular Casts (test code = 38578-7) 1-5 >0 H [facility]entonUrine Coarse Granular Scevh2323-40-42 11:49:00* Test Item Value Reference Range Interpretation Comments Urine Coarse Granular Casts (test code = 85349-6) 1-5 >0 H [facility]entonUrine Transitional Epithelial Cells 2019-05-19 11:49:00* Test Item Value Reference Range Interpretation Comments Urine Transitional Epithelial Cells (test code = 8249-5) FEW NONE [facility]entonUrine Fine Granular Fhrqu5184-79-95 11:49:00* Test Item Value Reference Range Interpretation Comments Urine Fine Granular Casts (test code = 72235-7) 1-5 >0 H [facility]entonUrine Coarse Granular Ceuoq9101-38-61 11:49:00* Test Item Value Reference Range Interpretation Comments Urine Coarse Granular Casts (test code = 34358-8) 1-5 >0 H [facility]entonUrine Transitional Epithelial Cells 2019-05-19 11:49:00* Test Item Value Reference Range Interpretation Comments Urine Transitional Epithelial Cells (test code = 8249-5) FEW NONE [facility]entonU[facility] Fine Granular Xbbzd5025-02-79 11:49:00* Test Item Value Reference Range Interpretation Comments Urine Fine Granular Casts (test code = 91802-7) 1-5 >0 H [facility]entonUrine Coarse Granular Htqrd3202-25-29 11:49:00* Test Item Value Reference Range Interpretation Comments Urine Coarse Granular Casts (test code = 09390-0) 1-5 >0 H [facility]entonUrine Rvvyf4310-39-59 11:36:00* Test Item Value Reference Range Interpretation Comments Urine Color (test code = 5778-6) YELLOW YELLOW [facility]entonUrine Juqvfgf3640-90-05 11:36:00* Test Item Value Reference Range Interpretation Comments Urine Clarity (test code = 57536-0) CLEAR CLEAR [facility]entonUrine Specific Otosynd1338-59-76 11:36:00 * Test Item Value Reference Range Interpretation Comments Urine Specific [place] (test code = 5811-5) 1.025 1.010-1.02 5 [facility]entonUrine gB7283-44-67 11:36:00* Test Item Value Reference Range Interpretation Comments Urine pH (test code = 69019-9) 5 5-7 [facility] Leukocyte Uiidolpq0999-65-19 11:36:00* Test Item Value Reference Range Interpretation Comments Urine Leukocyte Esterase (test code = 45606-9) NEGATIVE NEGATIV E [facility]entonU[facility] Blbgqdl3429-48-27 11:36:00* Test Item Value Reference Range Interpretation Comments Urine Nitrite (test code = 27116-4) NEGATIVE NEGATIVE [facility]entonU[facility] Cmwvhwu0027-75-03 11:36:00* Test Item Value Reference Range Interpretation Comments Urine Protein (test code = 92862-5) 1+ NEGATIVE H [facility]entonUrine Glucose (UA)2019-05-19 11:36:00* Test Item Value Reference Range Interpretation Comments Urine Glucose (UA) (test code = 30536-4) 3+ NEGATIVE [facility]entonUrine Mksgoyf8235-08-81 11:36:00* Test Item Value Reference Range Interpretation Comments Urine Ketones (test code = 39892-9) 2+ NEGATIVE H [facility]entonUrine Ydulutdwjxve4662-92-59 11:36:00* Test Item Value Reference Range Interpretation Comments Urine Urobilinogen (test code = 91385-4) 0.2 0.2-1 [facility]entonU[facility] Sgvbhgcmx2334-65-47 11:36:00* Test Item Value Reference Range Interpretation Comments Urine Bilirubin (test code = 1977-8) NEGATIVE NEGATIVE [facility]entonU[facility] Xadqj1315-38-08 11:36:00* Test Item Value Reference Range Interpretation Comments Urine Blood (test code = 10086-9) 1+ NEGATIVE [facility]entonU[facility] Opiates Wcgcks8390-54-04 10:59:00* Test Item Value Reference Range Interpretation Comments Urine Opiates Screen (test code = 84216-9) NEGATIVE NEGATIVE ALL TESTS PERFORMED MANUALLY ON LIQVID TOX/SEE TESTTexas Health DentonUrine Barbiturates Izarbn5028-04-05 10:59:00* Test Item Value Reference Range Interpretation Comments Urine Barbiturates Screen (test code = 826486027) NEGATIVE NEGA TIVE [facility]entonU[facility] Phencyclidine Etsusv8665-21-42 10:59:00* Test Item Value Reference Range Interpretation Comments Urine Phencyclidine Screen (test code = 62962-4) NEGATIVE NEGAT JESSIKA [facility]entonUrine Amphetamines Cwntxd2801-87-22 10:59:00* Test Item Value Reference Range Interpretation Comments Urine Amphetamines Screen (test code = 82463-4) NEGATIVE NEGATI VE [facility]entonU[facility] Methamphetamines Rahwfb7225-07-60 10:59:00* Test Item Value Reference Range Interpretation Comments Urine Methamphetamines Screen (test code = Urine Metha mphetamines Screen) NEGATIVE NEGATIVE [facility]entonU[facility] Benzodiazepines Xaefun0696-56-68 10:59:00* Test Item Value Reference Range Interpretation Comments Urine Benzodiazepines Screen (test code = 26934-3) NEGATIVE NEG ATIVE [facility]entonU[facility] Cocaine Mdesws1264-68-88 10:59:00* Test Item Value Reference Range Interpretation Comments Urine Cocaine Screen (test code = 3398-5) NEGATIVE NEGATIVE [facility]entonU[facility] Cannabinoids Xdqjdj1784-54-36 10:59:00* Test Item Value Reference Range Interpretation Comments Urine Cannabinoids Screen (test code = 46407-5) POSITIVE NEGATI VE H THESE RESULTS ARE FOR MEDICAL TREATMENT ONLYTHIS REPORT CONTAINS UNCONFIR MED SCREENING RESULTS*POSITIVE RESULTS WILL BE CONFIRMED BY REFERENCE LAB UPON R EQUEST CUT-OFFDRUG CLASS CONCENTRATION ng/mLAmphetamines 1000Methamphetamines 1000Cocaine 300Opiate 300Phencyc lidine 25Cannabinoid 50Barbiturates 300Benzodiazepine 300Methadone 300 This test p rovides only a screen. Positive results should be repeated by a confirmatory navya t.[facility]entonUrine Methadone Wtnwez8763-85-00 10:59:00* Test Item Value Reference Range Interpretation Comments Urine Methadone Screen (test code = 77965-8) NEGATIVE NEGATIVE THESE RESULTS ARE FOR MEDICAL TREATMENT ONLYTHIS REPORT CONTAINS UNCONFIR MED SCREENING RESULTS*POSITIVE RESULTS WILL BE CONFIRMED BY REFERENCE LAB UPON R EQUEST CUT-OFFDRUG CLASS CONCENTRATION ng/mLAmphetamines 1000Methamphetamines 1000Cocaine Metabolite 300Opiate 300Phencyc lidine 25Cannabinoid 50Barbiturates 300Benzodiazepine 300Methadone 300[facility] Nat[facility] Zgirryj8550-80-76 10:40:00* Test Item Value Reference Range Interpretation Comments B-Type Natriuretic Peptide (test code = 77984-3) 28.6 0-100 [facility]entonCreatine Kinase WP4804-16-89 10:40:00* Test Item Value Reference Range Interpretation Comments Creatine Kinase MB (test code = 71868-3) 1.60 0-5.0 [facility]entonTroponin T0734-57-34 10:40:00* Test Item Value Reference Range Interpretation Comments Troponin I (test code = QKC7974) 0.001 0-0.300 [facility]entonB-Type Natriuretic Kojluzq6122-23-94 10:40:00* Test Item Value Reference Range Interpretation Comments B-Type Natriuretic Peptide (test code = 38654-4) 28.6 0-100 [facility]entonB-Type Natriuretic Nsepjlb5744-65-34 10:40:00* Test Item Value Reference Range Interpretation Comments B-Type Natriuretic Peptide (test code = 04523-7) 28.6 0-100 [facility]entonProthrombin Trzc6469-84-54 10:32:00* Test Item Value Reference Range Interpretation Comments Prothrombin Time (test code = 5902-2) 14.9 11.9-14.5 H [facility]entonProthromb Time International Ratio 2019-05-19 10:32:00* Test Item Value Reference Range Interpretation Comments Prothromb Time International Ratio (test code = 6301-6) 1.12 Oral Anticoagulant Therapy INR Values:1. Low Intensity Therapy 1.5 - 2.02 . Moderate Intensity Therapy 2.0 - 3.03. High Intensity Therapy(1) 2.5 - 3. 54. High Intensity Therapy(2) 3.0 - 4.05. Panic Value INR > 5.0 [facility]entonActivated Partial Thromboplast Time 2019-05-19 10:32:00* Test Item Value Reference Range Interpretation Comments Activated Partial Thromboplast Time (test code = 98434-0) 31.5 23.8-35.5 [facility]entonTotal Krzazixiw4061-49-66 10:31:00* Test Item Value Reference Range Interpretation Comments Total Bilirubin (test code = 1975-2) 0.8 0.2-1.2 [facility]entonAspartate Amino Transf (AST/SGOT) 2019-05-19 10:31:00* Test Item Value Reference Range Interpretation Comments Aspartate Amino Transf (AST/SGOT) (test code = Aspartate Amino Transf (AST/SGOT)) 12 5-34 [facility]entonAlanine Aminotransferase (ALT/SGPT) 2019-05-19 10:31:00* Test Item Value Reference Range Interpretation Comments Alanine Aminotransferase (ALT/SGPT) (test code = 1742-6) 17 0-55 [facility]entonTotal Zgbizkg2927-02-53 10:31:00* Test Item Value Reference Range Interpretation Comments Total Protein (test code = 2885-2) 8.5 6.5-8.1 H [facility]entonAlbumin2019-07-09 10:31:00* Test Item Value Reference Range Interpretation Comments Albumin (test code = 1751-7) 4.6 3.5-5.0 [facility]entonGlobulin2019-07-09 10:31:00* Test Item Value Reference Range Interpretation Comments Globulin (test code = 75198-3) 3.9 2.3-3.5 H [facility]entonAlbumin/Globulin Fmcan9271-23-35 10:31:00 * Test Item Value Reference Range Interpretation Comments Albumin/Globulin Ratio (test code = 1759-0) 1.2 0.8-2.0 [facility]entonAlkaline Jlwibsgwvcj7650-58-82 10:31:00* Test Item Value Reference Range Interpretation Comments Alkaline Phosphatase (test code = 6768-6) 149 40-150 [facility]entonCreatine Pofnxk4409-57-66 10:31:00* Test Item Value Reference Range Interpretation Comments Creatine Kinase (test code = 2157-6) 59 30-200 [facility]entonCHEST SINGLE (PORTABLE)2019-05-19 10:11:00 [facility] [address] [place] [id number] Patient Name: KVEIN LOMELI MR #: [id number] : 1995 Age/Sex: 24/M Req #: [id number] Adm Physician: Ordered by: KEYON MIRANDA MD Report #: [id number] Location: ER Room/Bed: Procedure: [id number] DX /CHEST SINGLE (PORTABLE) Exam Date: 05/19/19 [...] 7.31-7.41 LL Results called/hand delivered to at [facility] on 05/19/19 by Eder Garcia. [facility] [place]Ar[facility] Partial Pressure CO2 2019-05-19 10:03:00* Test Item Value Reference Range Interpretation Comments Arterial Blood Partial Pressure CO2 (test code = 2018-8) 9 41-51 L [facility]entonArterial Blood Partial Pressure O2 2019-05-19 10:03:00* Test Item Value Reference Range Interpretation Comments Arterial Blood Partial Pressure O2 (test code = 2018-8) 147 80-105 H [facility]entonArterial Blood FBD46307-57-72 10:03:00* Test Item Value Reference Range Interpretation Comments Arterial Blood HCO3 (test code = 1960-4) 2 23-28 L [facility]entonArterial Blood Base Edeugh8624-48-84 10:03:00* Test Item Value Reference Range Interpretation Comments Arterial Blood Base Excess (test code = 1925-7) -30.0 -2-3 L [facility]entonArterial Blood Oxygen Saturation 2019-05-19 10:03:00* Test Item Value Reference Range Interpretation Comments Arterial Blood Oxygen Saturation (test code = 2708-6) 98.0 95-98 [facility] DentonFiO22019-07-09 10:03:00* Test Item Value Reference Range Interpretation Comments FiO2 (test code = FiO2) 21 Pt was on Room air when ABG was drawnTexas Health Denton Bedside Mdcwtrr0294-82-46 08:09:00* Test Item Value Reference Range Interpretation Comments Bedside Glucose (test code = 14266-2) 142 70-120 H Meter ID: [id number] Scott & White [facility] – Lake Pointeodium Level 2019-03-03 07:29:00* Test Item Value Reference Range Interpretation Comments Sodium Level (test code = 2951-2) 131 136-145 L [facility]entonPotassium Eunna9391-19-63 07:29:00* Test Item Value Reference Range Interpretation Comments Potassium Level (test code = 2823-3) 4.0 3.5-5.1 [facility]entonChloride Qetpj2626-42-60 07:29:00* Test Item Value Reference Range Interpretation Comments Chloride Level (test code = 2075-0) 101 98-107 [facility]entonCarbon Dioxide Ylilv7849-17-61 07:29:00* Test Item Value Reference Range Interpretation Comments Carbon Dioxide Level (test code = 2028-9) 22 22-29 [facility] DentonAnion Ioi9519-76-92 07:29:00* Test Item Value Reference Range Interpretation Comments Anion Gap (test code = 36058-4) 12.0 8-16 [facility]entonBlood Urea Tyqiomrk8650-53-93 07:29:00* Test Item Value Reference Range Interpretation Comments Blood Urea Nitrogen (test code = 3094-0) 11 7-26 [facility]entonCreatinine2019-04-23 07:29:00* Test Item Value Reference Range Interpretation Comments Creatinine (test code = 2160-0) 0.72 0.72-1.25 [facility]entonBUN/Creatinine Uvoza5141-09-91 07:29:00* Test Item Value Reference Range Interpretation Comments BUN/Creatinine Ratio (test code = 3097-3) 15 05-05 [facility] DentonEstimat Glomerular Filtration Rate 2019-03-03 07:29:00* Test Item Value Reference Range Interpretation Comments Estimat Glomerular Filtration Rate (test code = 198245578) > 60 >60 Ranges were taken from the National Kidney Disease Education Program and the [facility] Foundation literature.Reference ranges:60 or greater: Pydlgh68-51 ( for 3 consecutive months): Chronic kidney disease 15 or less: Kidney failureTexas Health DentonGlucose Rzaal2098-89-55 07:29:00* Test Item Value Reference Range Interpretation Comments Glucose Level (test code = RNI1558) 142 74-118 H [facility] DentonCalcium Sdlie6577-52-18 07:29:00* Test Item Value Reference Range Interpretation Comments Calcium Level (test code = 46400-2) 8.4 8.4-10.2 [facility]entonMagnesium Cjonw2916-03-43 07:29:00* Test Item Value Reference Range Interpretation Comments Magnesium Level (test code = 44403-9) 2.1 1.3-2.1 [facility] DentonArterial Blood bU1781-87-77 01:35:00* Test Item Value Reference Range Interpretation Comments Arterial Blood pH (test code = 2744-1) 7.30 7.31-7.41 L [facility] DentonArterial Blood Partial Pressure CO2 2019-03-03 01:35:00* Test Item Value Reference Range Interpretation Comments Arterial Blood Partial Pressure CO2 (test code = 2018-) 33 41-51 L [facility] DentonArterial Blood Partial Pressure O2 2019-03-03 01:35:00* Test Item Value Reference Range Interpretation Comments Arterial Blood Partial Pressure O2 (test code = 2019-06) 108 80-105 H [facility] [place]entonArterial Blood [id number] 01:35:00* Test Item Value Reference Range Interpretation Comments Arterial Blood HCO3 (test code = 1960-4) 16 23-28 [facility] Base Lqptae6976-45-83 01:35:00* Test Item Value Reference Range Interpretation Comments Arterial Blood Base Excess (test code = 1925-7) -10.0 -2-3 L [facility]enton[facility] Oxygen Saturation 2019-03-03 01:35:00* Test Item Value Reference Range Interpretation Comments Arterial Blood Oxygen Saturation (test code = 2708-6) 98.0 95-98 [facility]entonFiO22019-04-23 01:35:00* Test Item Value Reference Range Interpretation Comments FiO2 (test code = FiO2) 21 PT IS ON ROOM AIR98%/68/16[facility] Bilirubin 2019-03-02 23:28:00* Test Item Value Reference Range Interpretation Comments Total Bilirubin (test code = 1975-2) 1.1 0.2-1.2 [facility]entonAspartate Amino Transf (AST/SGOT) 2019-03-02 23:28:00* Test Item Value Reference Range Interpretation Comments Aspartate Amino Transf (AST/SGOT) (test code = Aspartate Amino Transf (AST/SGOT)) 14 5-34 [facility]entonAlanine Aminotransferase (ALT/SGPT) 2019-03-02 23:28:00* Test Item Value Reference Range Interpretation Comments Alanine Aminotransferase (ALT/SGPT) (test code = 1742-6) 19 0-55 [facility]entonTotal Pshuasy6732-39-02 23:28:00* Test Item Value Reference Range Interpretation Comments Total Protein (test code = 2885-2) 8.2 6.5-8.1 H [facility]entonAlbumin2019-04-22 23:28:00* Test Item Value Reference Range Interpretation Comments Albumin (test code = 1751-7) 4.0 3.5-5.0 [facility]entonGlobulin2019-04-22 23:28:00* Test Item Value Reference Range Interpretation Comments Globulin (test code = 02281-5) 4.2 2.3-3.5 H [facility]entonAlbumin/Globulin Tqbzm8191-82-95 23:28:00 * Test Item Value Reference Range Interpretation Comments Albumin/Globulin Ratio (test code = 1759-0) 1.0 0.8-2.0 [facility]entonAlkaline Btcdjxachmp6276-01-01 23:28:00* Test Item Value Reference Range Interpretation Comments Alkaline Phosphatase (test code = 6768-6) 103 40-150 [facility]entonAmylase Zjowj4998-50-41 23:28:00* Test Item Value Reference Range Interpretation Comments Amylase Level (test code = 1798-8) 17 25-125 L [facility]entonLipase2019-04-22 23:28:00* Test Item Value Reference Range Interpretation Comments Lipase (test code = 3040-3) 5 8-78 L [facility] DentonAmylase Wphun9017-13-61 23:28:00* Test Item Value Reference Range Interpretation Comments Amylase Level (test code = 1798-8) 17 25-125 L [facility]entonLipase2019-04-22 23:28:00* Test Item Value Reference Range Interpretation Comments Lipase (test code = 3040-3) 5 8-78 L [facility]entonWhite Blood Ymyvk5856-38-19 23:27:00* Test Item Value Reference Range Interpretation Comments White Blood Count (test code = 6690-2) 7.32 4.8-10.8 [facility]entonRed Blood Plqvw8695-91-41 23:27:00* Test Item Value Reference Range Interpretation Comments Red Blood Count (test code = 789-8) 4.98 4.3-5.7 [facility]entonHemoglobin2019-04-22 23:27:00* Test Item Value Reference Range Interpretation Comments Hemoglobin (test code = 63402-9) 15.6 14.0-18.0 [facility]entonHematocrit2019-04-22 23:27:00* Test Item Value Reference Range Interpretation Comments Hematocrit (test code = 4544-3) 45.5 38.2-49.6 [facility]entonMean Corpuscular Qdtkzn7591-46-16 23:27:00* Test Item Value Reference Range Interpretation Comments Mean Corpuscular Volume (test code = 787-2) 91.4 81-99 [facility]entonMean Corpuscular Bkkammhntt4974-53-94 23:27:00* Test Item Value Reference Range Interpretation Comments Mean Corpuscular Hemoglobin (test code = 785-6) 31.3 28-32 [facility]entonMean Corpuscular Hemoglobin Concent 2019-03-02 23:27:00* Test Item Value Reference Range Interpretation Comments Mean Corpuscular Hemoglobin Concent (test code = 786-4) 34.3 31-35 [facility]entonRed Cell Distribution Asewi5227-86-54 23:27:00* Test Item Value Reference Range Interpretation Comments Red Cell Distribution Width (test code = 27948-3) 13.0 11.7 -14.4 [facility]entonPlatelet Zqsvl4479-33-41 23:27:00* Test Item Value Reference Range Interpretation Comments Platelet Count (test code = 777-3) 331 140-360 [facility]entonNeutrophils (%) (Auto)2019-03-02 23:27:00 * Test Item Value Reference Range Interpretation Comments Neutrophils (%) (Auto) (test code = 25439-3) 72.7 38.7-80.0 [facility]entonLymphocytes (%) (Auto)2019-03-02 23:27:00 * Test Item Value Reference Range Interpretation Comments Lymphocytes (%) (Auto) (test code = 736-9) 23.1 18.0-39.1 [facility]entonMonocytes (%) (Auto)2019-03-02 23:27:00* Test Item Value Reference Range Interpretation Comments Monocytes (%) (Auto) (test code = 5905-5) 3.8 4.4-11.3 L [facility]entonEosinophils (%) (Auto)2019-03-02 23:27:00 * Test Item Value Reference Range Interpretation Comments Eosinophils (%) (Auto) (test code = 713-8) 0.0 0.0-6.0 [facility]entonBasophils (%) (Auto)2019-03-02 23:27:00* Test Item Value Reference Range Interpretation Comments Basophils (%) (Auto) (test code = 706-2) 0.1 0.0-1.0 [facility]entonIM GRANULOCYTES %2019-03-02 23:27:00* Test Item Value Reference Range Interpretation Comments IM GRANULOCYTES % (test code = IM GRANULOCYTES %) 0.3 0.0- 1.0 [facility]entonNeutrophils # (Auto)2019-03-02 23:27:00* Test Item Value Reference Range Interpretation Comments Neutrophils # (Auto) (test code = 751-8) 5.3 2.1-6.9 [facility]entonLymphocytes # (Auto)2019-03-02 23:27:00* Test Item Value Reference Range Interpretation Comments Lymphocytes # (Auto) (test code = 78916-9) 1.7 1.0-3.2 [facility]entonMonocytes # (Auto)2019-03-02 23:27:00* Test Item Value Reference Range Interpretation Comments Monocytes # (Auto) (test code = 742-7) 0.3 0.2-0.8 [facility]entonEosinophils # (Auto)2019-03-02 23:27:00* Test Item Value Reference Range Interpretation Comments Eosinophils # (Auto) (test code = 711-2) 0.0 0.0-0.4 [facility]entonBasophils # (Auto)2019-03-02 23:27:00* Test Item Value Reference Range Interpretation Comments Basophils # (Auto) (test code = 704-7) 0.0 0.0-0.1 [facility]entonAbsolute Immature Granulocyte (auto 2019-03-02 23:27:00* Test Item Value Reference Range Interpretation Comments Absolute Immature Granulocyte (auto (navya t code = Absolute Immature Granulocyte (auto) 0.02 0-0.1 [facility]entonUrine [id number] 23:10:00* Test Item Value Reference Range Interpretation Comments Urine WBC (test code = 5821-4) 6-10 0-5 H [facility]entonUrine QMH6466-39-73 23:10:00* Test Item Value Reference Range Interpretation Comments Urine RBC (test code = 74584-2) >50 0-5 H [facility]entonUrine Tdbfrjuv4436-63-92 23:10:00* Test Item Value Reference Range Interpretation Comments Urine Bacteria (test code = 42894-1) FEW NONE [facility]entonU[facility] Epithelial Vvxto5104-72-32 23:10:00 * Test Item Value Reference Range Interpretation Comments Urine Epithelial Cells (test code = 55932-6) FEW NONE [facility]entonUrine Iyuxt8398-27-72 22:42:00* Test Item Value Reference Range Interpretation Comments Urine Color (test code = 5778-6) YELLOW YELLOW [facility]entonU[facility] Jgkowtp1706-63-86 22:42:00* Test Item Value Reference Range Interpretation Comments Urine Clarity (test code = 35433-7) CLEAR CLEAR [facility]entonU[facility] Specific Uypbfhc3986-63-95 22:42:00 * Test Item Value Reference Range Interpretation Comments Urine Specific [place] (test code = 5811-5) 1.030 1.010-1.02 5 H [facility]entonUrine mE6076-66-69 22:42:00* Test Item Value Reference Range Interpretation Comments Urine pH (test code = 04497-7) 6 5-7 [facility] Leukocyte Dwcldbmm6513-40-11 22:42:00* Test Item Value Reference Range Interpretation Comments Urine Leukocyte Esterase (test code = 5799-2) NEGATIVE NEGATIVE [facility]entonU[facility] Wsbktit3751-94-88 22:42:00* Test Item Value Reference Range Interpretation Comments Urine Nitrite (test code = 73617-8) NEGATIVE NEGATIVE [facility]entonU[facility] Pdgtkqj0579-60-38 22:42:00* Test Item Value Reference Range Interpretation Comments Urine Protein (test code = 5804-0) 1+ NEGATIVE H [facility]entonUrine Glucose (UA)2019-03-02 22:42:00* Test Item Value Reference Range Interpretation Comments Urine Glucose (UA) (test code = 2349-9) 3+ NEGATIVE H [facility]entonUrine Lkkzpor1214-04-41 22:42:00* Test Item Value Reference Range Interpretation Comments Urine Ketones (test code = 99698-3) 3+ NEGATIVE H [facility]entonU[facility] Dynlxrhecmox8859-78-12 22:42:00* Test Item Value Reference Range Interpretation Comments Urine Urobilinogen (test code = 68094-5) 0.2 0.2-1 [facility]entonU[facility] Qghsuijdd0068-87-42 22:42:00* Test Item Value Reference Range Interpretation Comments Urine Bilirubin (test code = 1978-6) NEGATIVE NEGATIVE [facility]entonU[facility] Whvsn1143-56-27 22:42:00* Test Item Value Reference Range Interpretation Comments Urine Blood (test code = 50551-0) 4+ NEGATIVE H [facility]entonU[facility] Opiates Bhyxvv7632-21-46 22:37:00* Test Item Value Reference Range Interpretation Comments Urine Opiates Screen (test code = 03976-3) NEGATIVE NEGATIVE ALL TESTS PERFORMED MANUALLY ON LIQVID TOX/SEE TESTTexas Health DentonUrine Barbiturates Zluxxs6264-30-40 22:37:00* Test Item Value Reference Range Interpretation Comments Urine Barbiturates Screen (test code = 846097831) NEGATIVE NEGA TIVE [facility]entonU[facility] Phencyclidine Mkyllj9445-20-52 22:37:00* Test Item Value Reference Range Interpretation Comments Urine Phencyclidine Screen (test code = 18232-0) NEGATIVE NEGAT JESSIKA [facility]entonU[facility] Amphetamines Oytrkk1762-12-51 22:37:00* Test Item Value Reference Range Interpretation Comments Urine Amphetamines Screen (test code = 58370-3) NEGATIVE NEGATI VE [facility]entonU[facility] Methamphetamines Opnlew2471-64-38 22:37:00* Test Item Value Reference Range Interpretation Comments Urine Methamphetamines Screen (test code = Urine Metha mphetamines Screen) NEGATIVE NEGATIVE [facility]entonU[facility] Benzodiazepines Hripyj6130-00-64 22:37:00* Test Item Value Reference Range Interpretation Comments Urine Benzodiazepines Screen (test code = 15216-2) NEGATIVE NEG ATIVE [facility]entonU[facility] Cocaine Ygfhia1465-67-93 22:37:00* Test Item Value Reference Range Interpretation Comments Urine Cocaine Screen (test code = 3398-5) NEGATIVE NEGATIVE [facility]entonU[facility] Cannabinoids Ndioiw2420-75-42 22:37:00* Test Item Value Reference Range Interpretation Comments Urine Cannabinoids Screen (test code = 26720-4) POSITIVE NEGATI VE H THESE RESULTS ARE FOR MEDICAL TREATMENT ONLYTHIS REPORT CONTAINS UNCONFIR MED SCREENING RESULTS*POSITIVE RESULTS WILL BE CONFIRMED BY REFERENCE LAB UPON R EQUEST CUT-OFFDRUG CLASS CONCENTRATION ng/mLAmphetamines 1000Methamphetamines 1000Cocaine 300Opiate 300Phencyc lidine 25Cannabinoid 50Barbiturates 300Benzodiazepine 300Methadone 300 This test p rovides only a screen. Positive results should be repeated by a confirmatory navya t.[facility]entonU[facility] Methadone Jfkpbi7466-91-94 22:37:00* Test Item Value Reference Range Interpretation Comments Urine Methadone Screen (test code = 77701-7) NEGATIVE NEGATIVE THESE RESULTS ARE FOR MEDICAL TREATMENT ONLYTHIS REPORT CONTAINS UNCONFIR MED SCREENING RESULTS*POSITIVE RESULTS WILL BE CONFIRMED BY REFERENCE LAB UPON R EQUEST CUT-OFFDRUG CLASS CONCENTRATION ng/mLAmphetamines 1000Methamphetamines 1000Cocaine Metabolite 300Opiate 300Phencyc lidine 25Cannabinoid 50Barbiturates 300Benzodiazepine 300Methadone 300[facility] Ctadznz7188-06-34 11:48:00* Test Item Value Reference Range Interpretation Comments Bedside Glucose (test code = 47220-4) 82 70-120 Meter ID: [id number]inteodium Level 2019-02-02 05:44:00* Test Item Value Reference Range Interpretation Comments Sodium Level (test code = 2951-2) 129 136-145 L [facility]entonPotassium Ywnzg0730-33-10 05:44:00* Test Item Value Reference Range Interpretation Comments Potassium Level (test code = 2823-3) 2.9 3.5-5.1 LL Results repeated and called to JAYLEN ORTIZ RN at 0543 on 02/02/19 by Erwin Anderson. Read back and verified.[facility]entonChloride Level 2019-02-02 05:44:00* Test Item Value Reference Range Interpretation Comments Chloride Level (test code = 2075-0) 88 98-107 L [facility] DentonCarbon Dioxide Zezgt1078-76-64 05:44:00* Test Item Value Reference Range Interpretation Comments Carbon Dioxide Level (test code = 2028-9) 35 22-29 H [facility] DentonAnion Jet9996-90-58 05:44:00* Test Item Value Reference Range Interpretation Comments Anion Gap (test code = 08439-0) 8.9 8-16 [facility]entonBlood Urea Doycdmcq9551-14-10 05:44:00* Test Item Value Reference Range Interpretation Comments Blood Urea Nitrogen (test code = 3094-0) 5 7-26 L [facility]entonCreatinine2019-03-25 05:44:00* Test Item Value Reference Range Interpretation Comments Creatinine (test code = 2160-0) 0.57 0.72-1.25 L [facility] DentonBUN/Creatinine Jqfwb6621-45-94 05:44:00* Test Item Value Reference Range Interpretation Comments BUN/Creatinine Ratio (test code = 3097-3) 9 6-25 [facility] DentonEstimat Glomerular Filtration Rate 2019-02-02 05:44:00* Test Item Value Reference Range Interpretation Comments Estimat Glomerular Filtration Rate (test code = 768852151) > 60 >60 Ranges were taken from the National Kidney Disease Education Program and the [facility] Foundation literature.Reference ranges:60 or greater: Wtjage04-68 ( for 3 consecutive months): Chronic kidney disease 15 or less: Kidney failureTexas Health DentonGlucose Knsid4572-08-96 05:44:00* Test Item Value Reference Range Interpretation Comments Glucose Level (test code = SPW0189) 184 74-118 H [facility]entonCalcium Hbxjz3478-35-40 05:44:00* Test Item Value Reference Range Interpretation Comments Calcium Level (test code = 37168-5) 8.4 8.4-10.2 [facility]entonTotal Rvmjxyuib5947-43-38 05:44:00* Test Item Value Reference Range Interpretation Comments Total Bilirubin (test code = 1975-2) 0.6 0.2-1.2 [facility] DentonAspartate Amino Transf (AST/SGOT) 2019-02-02 05:44:00* Test Item Value Reference Range Interpretation Comments Aspartate Amino Transf (AST/SGOT) (test code = Aspartate Amino Transf (AST/SGOT)) 13 5-34 [facility] DentonAlanine Aminotransferase (ALT/SGPT) 2019-02-02 05:44:00* Test Item Value Reference Range Interpretation Comments Alanine Aminotransferase (ALT/SGPT) (test code = 1742-6) 8 0-55 [facility]entonTotal Vygzynf4109-65-94 05:44:00* Test Item Value Reference Range Interpretation Comments Total Protein (test code = 2885-2) 5.5 6.5-8.1 L [facility]entonAlbumin2019-03-25 05:44:00* Test Item Value Reference Range Interpretation Comments Albumin (test code = 1751-7) 3.3 3.5-5.0 L [facility]entonGlobulin2019-03-25 05:44:00* Test Item Value Reference Range Interpretation Comments Globulin (test code = 87848-7) 2.2 2.3-3.5 L [facility]entonAlbumin/Globulin Kypkx1722-52-38 05:44:00 * Test Item Value Reference Range Interpretation Comments Albumin/Globulin Ratio (test code = 1759-0) 1.5 0.8-2.0 [facility]entonAlkaline Wvgntzkxewq0085-70-33 05:44:00* Test Item Value Reference Range Interpretation Comments Alkaline Phosphatase (test code = 6768-6) 70 40-150 [facility]entonPhosphorus Lisbk8717-53-77 07:19:00* Test Item Value Reference Range Interpretation Comments Phosphorus Level (test code = WOZ7283) 1.0 2.3-4.7 L [facility] DentonMagnesium Tivjt8222-89-86 07:19:00* Test Item Value Reference Range Interpretation Comments Magnesium Level (test code = 50961-3) 1.8 1.3-2.1 [facility]entonPhosphorus Mhujm6116-06-35 07:19:00* Test Item Value Reference Range Interpretation Comments Phosphorus Level (test code = HKH8180) 1.0 2.3-4.7 L [facility]entonPhosphorus Pyhgo2484-29-86 07:19:00* Test Item Value Reference Range Interpretation Comments Phosphorus Level (test code = SMI0272) 1.0 2.3-4.7 L [facility] DentonWhite Blood Eanoh7276-31-06 06:57:00* Test Item Value Reference Range Interpretation Comments White Blood Count (test code = 6690-2) 7.09 4.8-10.8 [facility]entonRed Blood Ancvj4899-87-96 06:57:00* Test Item Value Reference Range Interpretation Comments Red Blood Count (test code = 789-8) 4.74 4.3-5.7 [facility]entonHemoglobin2019-03-23 06:57:00* Test Item Value Reference Range Interpretation Comments Hemoglobin (test code = 84563-8) 14.6 14.0-18.0 [facility] DentonHematocrit2019-03-23 06:57:00* Test Item Value Reference Range Interpretation Comments Hematocrit (test code = 4544-3) 38.7 38.2-49.6 [facility]entonMean Corpuscular Hmommq8333-01-78 06:57:00* Test Item Value Reference Range Interpretation Comments Mean Corpuscular Volume (test code = 787-2) 81.6 81-99 [facility]entonMean Corpuscular Nkrwkwqxnu4852-75-95 06:57:00* Test Item Value Reference Range Interpretation Comments Mean Corpuscular Hemoglobin (test code = 785-6) 30.8 28-32 [facility]entonMean Corpuscular Hemoglobin Concent 2019-01-31 06:57:00* Test Item Value Reference Range Interpretation Comments Mean Corpuscular Hemoglobin Concent (test code = 786-4) 37.7 31-35 H [facility]entonRed Cell Distribution Euftr3054-17-85 06:57:00* Test Item Value Reference Range Interpretation Comments Red Cell Distribution Width (test code = 20232-7) 12.6 11.7 -14.4 [facility] DentonPlatelet Wrgvm7783-60-47 06:57:00* Test Item Value Reference Range Interpretation Comments Platelet Count (test code = 777-3) 300 140-360 [facility]entonNeutrophils (%) (Auto)2019-01-31 06:57:00 * Test Item Value Reference Range Interpretation Comments Neutrophils (%) (Auto) (test code = 60219-4) 64.9 38.7-80.0 [facility]entonLymphocytes (%) (Auto)2019-01-31 06:57:00 * Test Item Value Reference Range Interpretation Comments Lymphocytes (%) (Auto) (test code = 736-9) 26.5 18.0-39.1 [facility]entonMonocytes (%) (Auto)2019-01-31 06:57:00* Test Item Value Reference Range Interpretation Comments Monocytes (%) (Auto) (test code = 5905-5) 6.8 4.4-11.3 [facility]entonEosinophils (%) (Auto)2019-01-31 06:57:00 * Test Item Value Reference Range Interpretation Comments Eosinophils (%) (Auto) (test code = 713-8) 0.8 0.0-6.0 [facility]entonBasophils (%) (Auto)2019-01-31 06:57:00* Test Item Value Reference Range Interpretation Comments Basophils (%) (Auto) (test code = 706-2) 0.4 0.0-1.0 [facility]entonIM GRANULOCYTES %2019-01-31 06:57:00* Test Item Value Reference Range Interpretation Comments IM GRANULOCYTES % (test code = IM GRANULOCYTES %) 0.6 0.0- 1.0 [facility]entonNeutrophils # (Auto)2019-01-31 06:57:00* Test Item Value Reference Range Interpretation Comments Neutrophils # (Auto) (test code = 751-8) 4.6 2.1-6.9 [facility]entonLymphocytes # (Auto)2019-01-31 06:57:00* Test Item Value Reference Range Interpretation Comments Lymphocytes # (Auto) (test code = 80012-7) 1.9 1.0-3.2 [facility]entonMonocytes # (Auto)2019-01-31 06:57:00* Test Item Value Reference Range Interpretation Comments Monocytes # (Auto) (test code = 742-7) 0.5 0.2-0.8 [facility]entonEosinophils # (Auto)2019-01-31 06:57:00* Test Item Value Reference Range Interpretation Comments Eosinophils # (Auto) (test code = 711-2) 0.1 0.0-0.4 [facility]entonBasophils # (Auto)2019-01-31 06:57:00* Test Item Value Reference Range Interpretation Comments Basophils # (Auto) (test code = 704-7) 0.0 0.0-0.1 [facility]entonAbsolute Immature Granulocyte (auto 2019-01-31 06:57:00* Test Item Value Reference Range Interpretation Comments Absolute Immature Granulocyte (auto (navya t code = Absolute Immature Granulocyte (auto) 0.04 0-0.1 [facility]entonArterial Blood [id number] 17:24:00* Test Item Value Reference Range Interpretation Comments Arterial Blood pH (test code = 2744-1) 7.44 7.31-7.41 H [facility]entonArterial Blood Partial Pressure CO2 2019-01-30 17:24:00* Test Item Value Reference Range Interpretation Comments Arterial Blood Partial Pressure CO2 (test code = 2018-) 20 41-51 L [facility]entonArterial Blood Partial Pressure O2 2019-01-30 17:24:00* Test Item Value Reference Range Interpretation Comments Arterial Blood Partial Pressure O2 (test code = 2018-8) 121 80-105 H [facility] DentonArterial Blood UMC37141-95-32 17:24:00* Test Item Value Reference Range Interpretation Comments Arterial Blood HCO3 (test code = 1960-4) 13 23-28 L [facility]entonArterial Blood Base Osnnkr7769-85-28 17:24:00* Test Item Value Reference Range Interpretation Comments Arterial Blood Base Excess (test code = 1925-7) -11.0 -2-3 L [facility]entonArterial Blood Oxygen Saturation 2019-01-30 17:24:00* Test Item Value Reference Range Interpretation Comments Arterial Blood Oxygen Saturation (test code = 2708-6) 99.0 95-98 H [facility] DentonFiO22019-03-22 17:24:00* Test Item Value Reference Range Interpretation Comments FiO2 (test code = FiO2) 21 PT ON ROOM AIR.[facility]entonUrine AKN3655-96-51 16:52:00* Test Item Value Reference Range Interpretation Comments Urine WBC (test code = 5821-4) NONE 0-5 [facility]entonUrine DDY0860-66-32 16:52:00* Test Item Value Reference Range Interpretation Comments Urine RBC (test code = 68221-2) NONE 0-5 [facility]entonUrine Rpdnasap1710-47-30 16:52:00* Test Item Value Reference Range Interpretation Comments Urine Bacteria (test code = 88273-7) FEW NONE [facility]entonUrine Epithelial Xsmma5910-91-43 16:52:00 * Test Item Value Reference Range Interpretation Comments Urine Epithelial Cells (test code = 68436-0) NONE NONE [facility] Amorphous Sucomrdg1426-73-31 16:52:00* Test Item Value Reference Range Interpretation Comments Urine Amorphous Sediment (test code = 8246-1) MODERATE FEW H [facility] Hyaline Oouuh9986-26-88 16:52:00* Test Item Value Reference Range Interpretation Comments Urine Hyaline Casts (test code = 73320-2) 0-1 0-1 [facility] Amorphous Yqyhhkvw2087-19-31 16:52:00* Test Item Value Reference Range Interpretation Comments Urine Amorphous Sediment (test code = 8246-1) MODERATE FEW H [facility] Hyaline Xpiib4195-01-77 16:52:00* Test Item Value Reference Range Interpretation Comments Urine Hyaline Casts (test code = 33023-0) 0-1 0-1 [facility] Amorphous Tqjtnsov9909-08-49 16:52:00* Test Item Value Reference Range Interpretation Comments Urine Amorphous Sediment (test code = 8246-1) MODERATE FEW H [facility] Hyaline Zvznz5117-66-85 16:52:00* Test Item Value Reference Range Interpretation Comments Urine Hyaline Casts (test code = 70046-7) 0-1 0-1 [facility] Amorphous Schmglpx4312-79-20 16:52:00* Test Item Value Reference Range Interpretation Comments Urine Amorphous Sediment (test code = 8246-1) MODERATE FEW H [facility] Hyaline Llpre6848-65-00 16:52:00* Test Item Value Reference Range Interpretation Comments Urine Hyaline Casts (test code = 67869-0) 0-1 0-1 [facility] Amorphous Xciqaqqf8159-24-18 16:52:00* Test Item Value Reference Range Interpretation Comments Urine Amorphous Sediment (test code = 8246-1) MODERATE FEW H [facility] Hyaline Pwlqj0497-89-50 16:52:00* Test Item Value Reference Range Interpretation Comments Urine Hyaline Casts (test code = 91624-9) 0-1 0-1 [facility]entonAmylase Qowqn0030-11-12 16:50:00* Test Item Value Reference Range Interpretation Comments Amylase Level (test code = 1798-8) 15 25-125 L [facility] DentonLipase2019-03-22 16:50:00* Test Item Value Reference Range Interpretation Comments Lipase (test code = 3040-3) < 4 8-78 L [facility]entonUrine Vjagj5874-09-33 16:38:00* Test Item Value Reference Range Interpretation Comments Urine Color (test code = 5778-6) STRAW YELLOW [facility]entonU[facility] Zyscnlc4123-77-12 16:38:00* Test Item Value Reference Range Interpretation Comments Urine Clarity (test code = 22796-6) SL CLOUDY CLEAR H [facility]entonUrine Specific Bodkkaj3533-97-20 16:38:00 * Test Item Value Reference Range Interpretation Comments Urine Specific [place] (test code = 5811-5) 1.030 1.010-1.02 5 [facility] mL5102-03-61 16:38:00* Test Item Value Reference Range Interpretation Comments Urine pH (test code = 61662-5) 6 5-7 [facility] Leukocyte Fjyxccud9918-10-09 16:38:00* Test Item Value Reference Range Interpretation Comments Urine Leukocyte Esterase (test code = 5799-2) NEGATIVE NEGATIVE [facility] Fjxirmg7441-42-25 16:38:00* Test Item Value Reference Range Interpretation Comments Urine Nitrite (test code = 60813-4) NEGATIVE NEGATIVE [facility] Hnilxwf1735-57-21 16:38:00* Test Item Value Reference Range Interpretation Comments Urine Protein (test code = 5804-0) 1+ NEGATIVE H [facility] Glucose (UA)2019-01-30 16:38:00* Test Item Value Reference Range Interpretation Comments Urine Glucose (UA) (test code = 2349-9) 2+ NEGATIVE H [facility] Ubvaltn4770-77-25 16:38:00* Test Item Value Reference Range Interpretation Comments Urine Ketones (test code = 40252-8) 2+ NEGATIVE H [facility] Wqwqjjzgxtmn4290-46-45 16:38:00* Test Item Value Reference Range Interpretation Comments Urine Urobilinogen (test code = 13895-0) 0.2 0.2-1 [facility] Acdgnlcsz1519-86-09 16:38:00* Test Item Value Reference Range Interpretation Comments Urine Bilirubin (test code = 1978-6) 1+ NEGATIVE H Confirmatory test currently unavailable. False positive results may occur.[facility] Jlcxs9830-85-71 16:38:00* Test Item Value Reference Range Interpretation Comments Urine Blood (test code = 95721-3) NEGATIVE NEGATIVE [facility]ED2019-02-24 16:31:00* Test Item Value Reference Range Interpretation Comments GLUBED (test code = GLUBED) 166 mg/dL 74-106 H Performed by certified yardage control operator at [facility] LIZPVT0896-25-20 14:11:00* Test Item Value Reference Range Interpretation Comments GLUBED (test code = GLUBED) 120 mg/dL 74-106 H Performed by certified yardage control operator at [facility] VIQXHE1806-94-76 14:11:00* Test Item Value Reference Range Interpretation Comments GLUBED (test code = GLUBED) 108 mg/dL 74-106 H Performed by certified yardage control operator at [facility] BASIC METABOLIC NNYAI0393-20-14 13:37:00* Test Item Value Reference Range Interpretation [...] code = CA) 7.6 mg/dL 8.5-10.1 L DMIXBV9418-12-06 11:24:00* Test Item Value Reference Range Interpretation Comments GLUBED (test code = GLUBED) 114 mg/dL 74-106 H Performed by certified yardage control operator at [facility] BASIC METABOLIC CHHTL2602-37-42 10:53:00* Test Item Value Reference Range Interpretation [...] code = CA) 8.2 mg/dL 8.5-10.1 L FCHPXS4899-04-51 10:29:00* Test Item Value Reference Range Interpretation Comments GLUBED (test code = GLUBED) 129 mg/dL 74-106 H Performed by certified yardage control operator at [facility] MPERXT0212-59-75 09:49:00* Test Item Value Reference Range Interpretation Comments GLUBED (test code = GLUBED) 139 mg/dL 74-106 H Performed by certified yardage control operator at [facility] QRCWJJ4520-16-90 08:30:00* Test Item Value Reference Range Interpretation Comments GLUBED (test code = GLUBED) 138 mg/dL 74-106 H Performed by certified yardage control operator at [facility] ZMLABW7339-51-23 08:19:00* Test Item Value Reference Range Interpretation Comments GLUBED (test code = GLUBED) 133 mg/dL 74-106 H Performed by certified yardage control operator at [facility] TWWGDH7912-24-64 06:19:00* Test Item Value Reference Range Interpretation Comments GLUBED (test code = GLUBED) 149 mg/dL 74-106 H Performed by certified yardage control operator at [facility] VQOKXB5863-88-53 06:19:00* Test Item Value Reference Range Interpretation Comments GLUBED (test code = GLUBED) 124 mg/dL 74-106 H Performed by certified yardage control operator at [facility] PANXRI1181-92-36 06:19:00* Test Item Value Reference Range Interpretation Comments GLUBED (test code = GLUBED) 100 mg/dL 74-106 N Performed by certified yardage control operator at [facility] GHBGXG6842-45-46 06:19:00* Test Item Value Reference Range Interpretation Comments GLUBED (test code = GLUBED) 117 mg/dL 74-106 H Performed by certified yardage control operator at [facility] GEHGBD7941-11-74 06:19:00* Test Item Value Reference Range Interpretation Comments GLUBED (test code = GLUBED) 134 mg/dL 74-106 H Performed by certified yardage control operator at [facility] MHLKQS6910-90-01 06:19:00* Test Item Value Reference Range Interpretation Comments GLUBED (test code = GLUBED) 171 mg/dL 74-106 H Performed by certified yardage control operator at [facility] WSMOZC2086-26-17 06:19:00* Test Item Value Reference Range Interpretation Comments GLUBED (test code = GLUBED) 180 mg/dL 74-106 H Performed by certified yardage control operator at [facility] ATVBNL2505-44-66 06:19:00* Test Item Value Reference Range Interpretation Comments GLUBED (test code = GLUBED) 222 mg/dL 74-106 H Performed by certified yardage control operator at [facility] JRNBFI9202-09-15 06:19:00* Test Item Value Reference Range Interpretation Comments GLUBED (test code = GLUBED) 254 mg/dL 74-106 H Performed by certified yardage control operator at [facility] PROCALCITONIN (PCT)2019-01-04 04:08:00* Test Item [...] interpreted taking into account the patients history. [id number] 03:50:00* Test Item Value Reference Range Interpretation Comments GLYCOSYLATED HEMOGLOBIN (HA1C) (test code = GLYHGB) 8.8 % HbA1 4. 8-6.0 H ESTIMATED AVERAGE GLUCOSE (test code = EAG) 206 MG/DL BASIC METABOLIC XHPMS9535-89-90 03:05:00* Test Item Value Reference Range Interpretation [...] code = CA) 8.4 mg/dL 8.5-10.1 L OVQCLENHWC5105-26-82 03:05:00* Test Item Value Reference Range Interpretation Comments PHOSPHORUS (test code = PHOS) 1.1 mg/dL 2.5-4.9 L [id number] 03:05:00* Test Item Value Reference Range Interpretation Comments MAGNESIUM (test code = MAG) 2.3 mg/dL 1.8-2.4 N CALCIUM JKPWJSS9002-31-09 03:05:00* Test Item Value Reference Range Interpretation Comments CALCIUM IONIZED (test code = FIDEL) 1.20 mmol/L 1.12-1.32 N BASIC METABOLIC [id number] 03:02:00* Test Item Value Reference Range Interpretation [...] CALCIUM (test code = CA) mg/dL 8.5-10.1 KJWSPGQLLA8242-34-79 03:02:00* Test Item Value Reference Range Interpretation Comments PHOSPHORUS (test code = PHOS) mg/dL 2.5-4.9 OJENFHPQG0227-33-04 03:02:00* Test Item Value Reference Range Interpretation Comments MAGNESIUM (test code = MAG) mg/dL 1.8-2.4 CALCIUM KCYCUVB0873-56-80 03:02:00* Test Item Value Reference Range Interpretation Comments CALCIUM IONIZED (test code = FIDEL) 1.20 mmol/L 1.12-1.32 N CBC W/AUTO [id number] 02:43:00* Test Item Value Reference Range Interpretation [...] DIFF REQUIRED (test code = MDIFF) NO PWFPLGEDY9135-08-70 22:46:00* Test Item Value Reference Range Interpretation Comments MAGNESIUM (test code = MAG) 2.1 mg/dL 1.8-2.4 N SPECIMEN COMMENTS: Q4H while on insulin dripSPECIMEN COMMENTS: Q8H while on insu dario dripBASIC METABOLIC [id number] 21:34:00* Test Item Value Reference Range Interpretation Comments SODIUM (test code = NA) 123 mmol/L 136-145 LL Resu lts called to [id number] by V.LAB.KP1 01/03/19 2134Critical results verified and [...] L SPECIMEN COMMENTS: Q4H while on insulin toajMTRUJY0882-15-06 21:05:00* Test Item Value Reference Range Interpretation Comments GLUBED (test code = GLUBED) 299 mg/dL 74-106 H Performed by certified yardage control operator at [facility] UGBPZS1227-79-52 21:05:00* Test Item Value Reference Range Interpretation Comments GLUBED (test code = GLUBED) 354 mg/dL 74-106 H Performed by certified yardage control operator at [facility] - XR CHEST 1 [id number] 20:33:00 FAX: Kira Dodson MD [phone] [place]: St: ADM FAX: Karthik Rm MD [phone] Name: KEVIN LOMELI [facility] : 1995 Age/S: 23/M [address] [facility] Unit #: [id number] Loc: [place] [address] Phys: Karthik Rm MD Acct: [id number] Dis Date: Status: ADM IN PHONE #: [phone] Exam Date: 01/03/20192008 FAX #: [phone] Reason: cough EXAMS: CPT CODE: [id number] XR CHEST 1 V 00899 HISTORY: Cough. COMPARISON: None available. No acute [...] #/LPF FEW Urine Source? Clean CatchBASIC METABOLIC [id number] 17:51:00* Test Item Value Reference Range Interpretation Comments SODIUM (test code = NA) 120 mmol/L 136-145 LL Resu lts called to [id number] by V.[email or web address] 01/03/19 1751Critical results verified and [...] CA) 9.1 mg/dL 8.5-10.1 N HEPATIC FUNCTION [id number] 17:51:00* Test Item Value Reference Range Interpretation [...] reference range due to change in reagent. [id number] 17:51:00* Test Item Value Reference Range Interpretation Comments LIPASE (test code = LIP) 36 U/L 73.0-393.0 L [id number]-I8871-08-23 17:46:00* Test Item Value Reference Range Interpretation Comments TROPONIN-I (test code = TROPI) <0.015 ng/mL 0-0.045 N [id number] 17:20:00* Test Item Value Reference Range Interpretation Comments GLUBED (test code = GLUBED) 373 mg/dL 74-106 H Performed by certified yardage control operator at [facility] CBC W/O [id number] 17:04:00* Test Item Value Reference Range Interpretation [...] MPV) 9.4 fL 6.7-11.0 N Hemoglobin A1c Efmprfx2341-32-54 06:18:00* Test Item Value Reference Range Interpretation Comments Hemoglobin A1c Percent (test code = Hemoglobin A1c Percent) 9.6 4.0-7.0 H [facility] Yzuaple9648-91-26 06:18:00 * Test Item Value Reference Range Interpretation Comments Hemoglobin A1c Percent (test code = Hemoglobin A1c Percent) 9.6 4.0-7.0 H [facility]oglobin A1c Pldgxnw3267-05-66 06:18:00 * Test Item Value Reference Range Interpretation Comments Hemoglobin A1c Percent (test code = Hemoglobin A1c Percent) 9.6 4.0-7.0 H [facility]entonCreatine Kinase [id number] 23:03:00* Test Item Value Reference Range Interpretation Comments Creatine Kinase MB (test code = 19297-8) 1.50 0-5.0 [facility]entonTroponin K5217-01-07 23:03:00* Test Item Value Reference Range Interpretation Comments Troponin I (test code = RDP0954) < 0.001 0-0.300 [facility]entonCreatine Kinase [id number] 23:03:00* Test Item Value Reference Range Interpretation Comments Creatine Kinase MB (test code = 16766-7) 1.50 0-5.0 [facility]entonTroponin [id number] 23:03:00* Test Item Value Reference Range Interpretation Comments Troponin I (test code = KIF9673) < 0.001 0-0.300 [facility]entonCreatine Xfxwkq9450-95-57 23:00:00* Test Item Value Reference Range Interpretation Comments Creatine Kinase (test code = 2157-6) 394 30-200 H [facility]entonCreatine Nusqnd8437-74-15 23:00:00* Test Item Value Reference Range Interpretation Comments Creatine Kinase (test code = 2157-6) 394 30-200 H [facility]entonCHES SINGLE (PORTABLE)2018-09-09 22:50:00 [place] [address] Patient Name: KEVIN LOMELI MR #: [id number] : 1995 Age/Sex: 23/M Req #: [id number] Adm Physician: Ordered by: SAMUEL ARIAS MD Report #: [id number] Location: ER Room/Bed: Procedure: 1029- 80 DX/CHEST [...] 56 COPY TO: SAMUEL VIEIRA MD Bedside Mrfszdq2842-86-79 12:26:00* Test Item Value Reference Range Interpretation Comments Bedside Glucose (test code = 80415-5) 170 70-120 H Meter ID: [id number]odium [facility] 2018-07-26 05:06:00* Test Item Value Reference Range Interpretation Comments Sodium Level (test code = 2951-2) 137 136-145 [facility]Potassium Azowj8588-47-80 05:06:00* Test Item Value Reference Range Interpretation Comments Potassium Level (test code = 2823-3) 3.2 3.5-5.1 L [facility]entonChloride Kuxim8945-85-34 05:06:00* Test Item Value Reference Range Interpretation Comments Chloride Level (test code = 2075-0) 97 98-107 L [facility]entonCarbon Dioxide Ceiyo0104-32-63 05:06:00* Test Item Value Reference Range Interpretation Comments Carbon Dioxide Level (test code = 2028-9) 28 22-29 [facility]entonAnion Fct1032-74-52 05:06:00* Test Item Value Reference Range Interpretation Comments Anion Gap (test code = 94586-9) 15.2 8-16 [facility]entonBlood Urea Lmbuxiks3876-20-67 05:06:00* Test Item Value Reference Range Interpretation Comments Blood Urea Nitrogen (test code = 3094-0) 8 7-26 [facility]entonCreatinine2018-09-15 05:06:00* Test Item Value Reference Range Interpretation Comments Creatinine (test code = 2160-0) 0.66 0.72-1.25 L [facility]entonBUN/Creatinine Fwsjn7493-26-74 05:06:00* Test Item Value Reference Range Interpretation Comments BUN/Creatinine Ratio (test code = 3097-3) 12 6-25 [facility]entonEstimat Glomerular Filtration Rate 2018-07-26 05:06:00* Test Item Value Reference Range Interpretation Comments Estimat Glomerular Filtration Rate (test code = 535867570) 60- >60 Ranges were taken from the National Kidney Disease Education Program and the [facility] [employer] literature.Reference ranges:60 or greater: Napeat83-56 ( for 3 consecutive months): Chronic kidney disease 15 or less: Kidney failureTexas Health DentonGlucose Jwphl4672-19-59 05:06:00* Test Item Value Reference Range Interpretation Comments Glucose Level (test code = LEN8646) 197 74-118 H [facility]entonCalcium Dieml1069-16-99 05:06:00* Test Item Value Reference Range Interpretation Comments Calcium Level (test code = 29249-7) 8.5 8.4-10.2 [facility]entonWhite Blood Qyboh0021-25-88 04:49:00* Test Item Value Reference Range Interpretation Comments White Blood Count (test code = 6690-2) 6.78 4.8-10.8 [facility]entonRed Blood Juupk7934-75-06 04:49:00* Test Item Value Reference Range Interpretation Comments Red Blood Count (test code = 789-8) 4.74 4.3-5.7 [facility]entonHemoglobin2018-09-15 04:49:00* Test Item Value Reference Range Interpretation Comments Hemoglobin (test code = 24811-4) 14.7 14.0-18.0 [facility]entonHematocrit2018-09-15 04:49:00* Test Item Value Reference Range Interpretation Comments Hematocrit (test code = 4544-3) 39.8 38.2-49.6 [facility]entonMean Corpuscular Hdmkgn3500-71-95 04:49:00* Test Item Value Reference Range Interpretation Comments Mean Corpuscular Volume (test code = 787-2) 84.0 81-99 [facility]entonMean Corpuscular Oxxtbivahv6502-06-00 04:49:00* Test Item Value Reference Range Interpretation Comments Mean Corpuscular Hemoglobin (test code = 785-6) 31.0 28-32 [facility]entonMean Corpuscular Hemoglobin Concent 2018-07-26 04:49:00* Test Item Value Reference Range Interpretation Comments Mean Corpuscular Hemoglobin Concent (test code = 786-4) 36.9 31-35 H [facility]entonRed Cell Distribution Qaaqh2797-95-84 04:49:00* Test Item Value Reference Range Interpretation Comments Red Cell Distribution Width (test code = 53108-0) 11.7 11.7 -14.4 [facility]entonPlatelet Ujqrv3438-60-56 04:49:00* Test Item Value Reference Range Interpretation Comments Platelet Count (test code = 777-3) 204 140-360 [facility]entonNeutrophils (%) (Auto)2018-07-26 04:49:00 * Test Item Value Reference Range Interpretation Comments Neutrophils (%) (Auto) (test code = 54838-7) 65.3 38.7-80.0 [facility]entonLymphocytes (%) (Auto)2018-07-26 04:49:00 * Test Item Value Reference Range Interpretation Comments Lymphocytes (%) (Auto) (test code = 736-9) 26.0 18.0-39.1 [facility]entonMonocytes (%) (Auto)2018-07-26 04:49:00* Test Item Value Reference Range Interpretation Comments Monocytes (%) (Auto) (test code = 5905-5) 8.4 4.4-11.3 [facility]entonEosinophils (%) (Auto)2018-07-26 04:49:00 * Test Item Value Reference Range Interpretation Comments Eosinophils (%) (Auto) (test code = 713-8) 0.1 0.0-6.0 [facility]entonBasophils (%) (Auto)2018-07-26 04:49:00* Test Item Value Reference Range Interpretation Comments Basophils (%) (Auto) (test code = 706-2) 0.1 0.0-1.0 [facility]entonIM GRANULOCYTES %2018-07-26 04:49:00* Test Item Value Reference Range Interpretation Comments IM GRANULOCYTES % (test code = IM GRANULOCYTES %) 0.1 0.0- 1.0 [facility]entonNeutrophils # (Auto)2018-07-26 04:49:00* Test Item Value Reference Range Interpretation Comments Neutrophils # (Auto) (test code = 751-8) 4.4 2.1-6.9 [facility]entonLymphocytes # (Auto)2018-07-26 04:49:00* Test Item Value Reference Range Interpretation Comments Lymphocytes # (Auto) (test code = 75270-1) 1.8 1.0-3.2 [facility]entonMonocytes # (Auto)2018-07-26 04:49:00* Test Item Value Reference Range Interpretation Comments Monocytes # (Auto) (test code = 742-7) 0.6 0.2-0.8 [facility]entonEosinophils # (Auto)2018-07-26 04:49:00* Test Item Value Reference Range Interpretation Comments Eosinophils # (Auto) (test code = 711-2) 0.0 0.0-0.4 [facility]entonBasophils # (Auto)2018-07-26 04:49:00* Test Item Value Reference Range Interpretation Comments Basophils # (Auto) (test code = 704-7) 0.0 0.0-0.1 [facility]entonAbsolute Immature Granulocyte (auto 2018-07-26 04:49:00* Test Item Value Reference Range Interpretation Comments Absolute Immature Granulocyte (auto (navya t code = Absolute Immature Granulocyte (auto) 0.01 0-0.1 [facility]entonMagnesium Fbpil6663-01-68 19:07:00* Test Item Value Reference Range Interpretation Comments Magnesium Level (test code = 23043-1) 1.8 1.3-2.1 [facility]entonHemoglobin A1c Ftzmznt9061-81-17 07:45:00 * Test Item Value Reference Range Interpretation Comments Hemoglobin A1c Percent (test code = Hemoglobin A1c Percent) 9.8 4.0-7.0 H [facility]entonThyroid Stimulating Hormone (TSH) 2018-07-24 07:43:00* Test Item Value Reference Range Interpretation Comments Thyroid Stimulating Hormone (TSH) (test code = 29771-9) 0.512 0.350-4.940 [facility]entonThyroid Stimulating Hormone (TSH) 2018-07-24 07:43:00* Test Item Value Reference Range Interpretation Comments Thyroid Stimulating Hormone (TSH) (test code = 83528-0) 0.512 0.350-4.940 [facility]entonThyroid Stimulating Hormone (TSH) 2018-07-24 07:43:00* Test Item Value Reference Range Interpretation Comments Thyroid Stimulating Hormone (TSH) (test code = 73989-5) 0.512 0.350-4.940 [facility]entonTriglycerides Wzctf3974-31-65 07:23:00* Test Item Value Reference Range Interpretation Comments Triglycerides Level (test code = 2571-8) 120 0-149 [facility]entonCholesterol Djoge8386-00-41 07:23:00* Test Item Value Reference Range Interpretation Comments Cholesterol Level (test code = 2093-3) 181 0-199 Less than 200 mg/dL Low Dodj214 - 239 mg/dL Borderline Zqmm807 m g/dl and greater High Risk [facility]entonLDL Ypqdwbmocgl1306-41-57 07:23:00* Test Item Value Reference Range Interpretation Comments LDL Cholesterol (test code = 2089-1) 93 60-130 [facility]entonHDL Qvzrpvahart0475-18-42 07:23:00* Test Item Value Reference Range Interpretation Comments HDL Cholesterol (test code = 2085-9) 64 40-60 H [facility]entonCholesterol/HDL Dwdkc7591-03-27 07:23:00 * Test Item Value Reference Range Interpretation Comments Cholesterol/HDL Ratio (test code = 9830-1) 2.8 3.9-4.7 L [facility]entonTriglycerides Cecls5055-55-48 07:23:00* Test Item Value Reference Range Interpretation Comments Triglycerides Level (test code = 2571-8) 120 0-149 [facility]entonCholesterol Uhcgr0547-23-13 07:23:00* Test Item Value Reference Range Interpretation Comments Cholesterol Level (test code = 2093-3) 181 0-199 Less than 200 mg/dL Low Wwbt663 - 239 mg/dL Borderline Mxcx625 m g/dl and greater High Risk [facility]entonLDL Oxxgcuucqas1037-50-35 07:23:00* Test Item Value Reference Range Interpretation Comments LDL Cholesterol (test code = 2089-1) 93 60-130 [facility] Dddpxwdvffe4822-65-72 07:23:00* Test Item Value Reference Range Interpretation Comments HDL Cholesterol (test code = 2085-9) 64 40-60 H [facility]entonCholesterol/HDL Pnmcw7847-37-07 07:23:00 * Test Item Value Reference Range Interpretation Comments Cholesterol/HDL Ratio (test code = 9830-1) 2.8 3.9-4.7 L [facility]entonTriglycerides Exkpu3653-18-36 07:23:00* Test Item Value Reference Range Interpretation Comments Triglycerides Level (test code = 2571-8) 120 0-149 [facility]entonCholesterol Aakoy9197-96-08 07:23:00* Test Item Value Reference Range Interpretation Comments Cholesterol Level (test code = 2093-3) 181 0-199 Less than 200 mg/dL Low Lfjf859 - 239 mg/dL Borderline Tzin877 m g/dl and greater High Risk [facility]entonLDL Gdmcwlcmwmw7160-38-61 07:23:00* Test Item Value Reference Range Interpretation Comments LDL Cholesterol (test code = 2089-1) 93 60-130 [facility] Nfbjvjlbkjm9760-60-79 07:23:00* Test Item Value Reference Range Interpretation Comments HDL Cholesterol (test code = 2085-9) 64 40-60 H [facility]entonCholesterol/HDL Prfxr6419-91-93 07:23:00 * Test Item Value Reference Range Interpretation Comments Cholesterol/HDL Ratio (test code = 9830-1) 2.8 3.9-4.7 L [facility]entonTriglycerides Cywqc8536-72-30 07:23:00* Test Item Value Reference Range Interpretation Comments Triglycerides Level (test code = 2571-8) 120 0-149 [facility]entonCholesterol Zgngo2940-75-47 07:23:00* Test Item Value Reference Range Interpretation Comments Cholesterol Level (test code = 2093-3) 181 0-199 Less than 200 mg/dL Low Gygo566 - 239 mg/dL Borderline Bzhz311 m g/dl and greater High Risk [facility]entonLDL Jesgokdtesl8369-61-55 07:23:00* Test Item Value Reference Range Interpretation Comments LDL Cholesterol (test code = 2089-1) 93 60-130 [facility]entonHDL Ijcvhzjimfm9238-59-76 07:23:00* Test Item Value Reference Range Interpretation Comments HDL Cholesterol (test code = 2085-9) 64 40-60 H [facility]entonCholesterol/HDL Qumcb0629-18-50 07:23:00 * Test Item Value Reference Range Interpretation Comments Cholesterol/HDL Ratio (test code = 9830-1) 2.8 3.9-4.7 L [facility]entonUrine YQK9978-28-54 20:17:00* Test Item Value Reference Range Interpretation Comments Urine WBC (test code = 5821-4) 0-5 0-5 [facility]entonU[facility] INH9774-33-05 20:17:00* Test Item Value Reference Range Interpretation Comments Urine RBC (test code = 93615-6) NONE 0-5 [facility]entonUrine Ybvikart3769-04-02 20:17:00* Test Item Value Reference Range Interpretation Comments Urine Bacteria (test code = 84096-2) FEW NONE [facility]entonUrine Epithelial Ubewt3996-39-27 20:17:00 * Test Item Value Reference Range Interpretation Comments Urine Epithelial Cells (test code = 61792-1) FEW NONE [facility]entonUrine Coarse Granular Awpzi7112-15-71 20:17:00* Test Item Value Reference Range Interpretation Comments Urine Coarse Granular Casts (test code = 81616-6) 1-5 >0 H [facility]entonUrine Coarse Granular Ttjjv1459-75-92 20:17:00* Test Item Value Reference Range Interpretation Comments Urine Coarse Granular Casts (test code = 73490-6) 1-5 >0 H [facility]entonUrine Coarse Granular Vevzf5230-36-52 20:17:00* Test Item Value Reference Range Interpretation Comments Urine Coarse Granular Casts (test code = 56365-3) 1-5 >0 H [facility]entonUrine Bzwjz9339-36-64 20:11:00* Test Item Value Reference Range Interpretation Comments Urine Color (test code = 5778-6) YELLOW YELLOW [facility]entonU[facility] Qtbemyg9343-70-13 20:11:00* Test Item Value Reference Range Interpretation Comments Urine Clarity (test code = 77133-3) CLEAR CLEAR [facility]entonU[facility] Specific Fkxriin4386-28-33 20:11:00 * Test Item Value Reference Range Interpretation Comments Urine Specific [place] (test code = 5811-5) 1.030 1.010-1.02 5 H [facility]entonUrine qB2128-90-91 20:11:00* Test Item Value Reference Range Interpretation Comments Urine pH (test code = 15276-5) 5 5-7 [facility] [facility]ukocyte Uexmyvwy7505-76-19 20:11:00* Test Item Value Reference Range Interpretation Comments Urine Leukocyte Esterase (test code = 5799-2) NEGATIVE [facility]GATIVE [facility] Jgrjozk0350-49-85 20:11:00* Test Item Value Reference Range Interpretation Comments Urine Nitrite (test code = 08785-9) NEGATIVE NEGATIVE [facility] Sliuwmn3137-52-96 20:11:00* Test Item Value Reference Range Interpretation Comments Urine Protein (test code = 5804-0) TRACE NEGATIVE H [facility] Glucose (UA)2018-07-23 20:11:00* Test Item Value Reference Range Interpretation Comments Urine Glucose (UA) (test code = 2349-9) 2+ NEGATIVE H [facility] Ksolwie2518-58-97 20:11:00* Test Item Value Reference Range Interpretation Comments Urine Ketones (test code = 24272-6) 2+ NEGATIVE H [facility] Opiates Acbakh3143-76-95 20:11:00* Test Item Value Reference Range Interpretation Comments Urine Opiates Screen (test code = 98148-7) POSITIVE NEGATIVE H This test provides only a screen. Positive results should be repeated by a confi rmatory test.[facility] Barbiturates Screen 2018-07-23 20:11:00* Test Item Value Reference Range Interpretation Comments Urine Barbiturates Screen (test code = 789954253) NEGATIVE NEGA TIVE [facility] Phencyclidine Ukntxm5347-99-23 20:11:00* Test Item Value Reference Range Interpretation Comments Urine Phencyclidine Screen (test code = 76005-5) NEGATIVE NEGAT JESSIKA [facility] Amphetamines Kijlqp7148-19-33 20:11:00* Test Item Value Reference Range Interpretation Comments Urine Amphetamines Screen (test code = 84248-1) NEGATIVE NEGATI VE [facility] Methamphetamines Csrclg6045-14-26 20:11:00* Test Item Value Reference Range Interpretation Comments Urine Methamphetamines Screen (test code = Urine Metha mphetamines Screen) NEGATIVE NEGATIVE [facility] Benzodiazepines Mftjji0881-07-66 20:11:00* Test Item Value Reference Range Interpretation Comments Urine Benzodiazepines Screen (test code = 50903-3) NEGATIVE NEG ATIVE [facility] Cocaine Vjcpyi7607-46-20 20:11:00* Test Item Value Reference Range Interpretation Comments Urine Cocaine Screen (test code = 3398-5) NEGATIVE NEGATIVE [facility] Cannabinoids Jnqlzp2250-34-46 20:11:00* Test Item Value Reference Range Interpretation Comments Urine Cannabinoids Screen (test code = 84406-3) POSITIVE NEGATI VE H This test provides only a screen. Positive results should be repeated by a confi rmatory test.[facility]enton[facility] Axscizdhpbmt6206-02-49 20:11:00* Test Item Value Reference Range Interpretation Comments Urine Urobilinogen (test code = 69409-6) 0.2 0.2-1 [facility] Mqhnwluyx5156-90-80 20:11:00* Test Item Value Reference Range Interpretation Comments Urine Bilirubin (test code = 1978-6) NEGATIVE NEGATIVE [facility] Frwyf1586-78-54 20:11:00* Test Item Value Reference Range Interpretation Comments Urine Blood (test code = 89827-2) TRACE NEGATIVE H [facility] Opiates Sfeivv3994-74-61 20:11:00* Test Item Value Reference Range Interpretation Comments Urine Opiates Screen (test code = 98180-0) POSITIVE NEGATIVE H This test provides only a screen. Positive results should be repeated by a confi rmatory test.[facility] Barbiturates Screen 2018-07-23 20:11:00* Test Item Value Reference Range Interpretation Comments Urine Barbiturates Screen (test code = 659775655) NEGATIVE NEGA TIVE [facility] Phencyclidine Elryxa4331-73-09 20:11:00* Test Item Value Reference Range Interpretation Comments Urine Phencyclidine Screen (test code = 72308-1) NEGATIVE NEGAT JESSIKA [facility] Amphetamines Ztvhes6271-97-03 20:11:00* Test Item Value Reference Range Interpretation Comments Urine Amphetamines Screen (test code = 29185-7) NEGATIVE NEGATI VE [facility] Methamphetamines Widcaf4072-76-95 20:11:00* Test Item Value Reference Range Interpretation Comments Urine Methamphetamines Screen (test code = Urine Metha mphetamines Screen) NEGATIVE NEGATIVE [facility] Benzodiazepines Iiitwn2344-68-86 20:11:00* Test Item Value Reference Range Interpretation Comments Urine Benzodiazepines Screen (test code = 31549-7) NEGATIVE NEG ATIVE [facility] Cocaine Xbzkju7289-78-89 20:11:00* Test Item Value Reference Range Interpretation Comments Urine Cocaine Screen (test code = 3398-5) NEGATIVE NEGATIVE [facility] Cannabinoids Dkfsio7779-76-21 20:11:00* Test Item Value Reference Range Interpretation Comments Urine Cannabinoids Screen (test code = 53846-8) POSITIVE NEGATI VE H This test provides only a screen. Positive results should be repeated by a confi rmatory test.[facility]entonDifferential Total Cells Fspzzke8445-66-45 19:22:00* Test Item Value Reference Range Interpretation Comments Differential Total Cells Counted (test code = Differen tial Total Cells Counted) 100 [facility]entonNeutrophils % (Manual)2018-07-23 19:22:00 * Test Item Value Reference Range Interpretation Comments Neutrophils % (Manual) (test code = 70708-7) 79 40-74 H [facility]entonLymphocytes % (Manual)2018-07-23 19:22:00 * Test Item Value Reference Range Interpretation Comments Lymphocytes % (Manual) (test code = 737-7) 11 19-48 L [facility]entonMonocytes % (Manual)2018-07-23 19:22:00* Test Item Value Reference Range Interpretation Comments Monocytes % (Manual) (test code = 744-3) 10 3.4-9.0 H [facility]entonPlatelet Ynbqfmad4205-54-90 19:22:00* Test Item Value Reference Range Interpretation Comments Platelet Estimate (test code = 63645-6) ADEQUATE [facility]entonPlatelet Morphology Eyreqfe2591-24-69 19:22:00* Test Item Value Reference Range Interpretation Comments Platelet Morphology Comment (test code = 81032-9) NORMAL [facility]entonRed Cell Morphology Wsrsggx0305-02-51 19:22:00* Test Item Value Reference Range Interpretation Comments Red Cell Morphology Comment (test code = 6742-1) NORMAL [facility]entonDifferential Total Cells Counted 2018-07-23 19:22:00* Test Item Value Reference Range Interpretation Comments Differential Total Cells Counted (test code = Differen tial Total Cells Counted) 100 [facility]entonNeutrophils % (Manual)2018-07-23 19:22:00 * Test Item Value Reference Range Interpretation Comments Neutrophils % (Manual) (test code = 13065-5) 79 40-74 H [facility]entonLymphocytes % (Manual)2018-07-23 19:22:00 * Test Item Value Reference Range Interpretation Comments Lymphocytes % (Manual) (test code = 737-7) 11 19-48 [facility] ([facility]ual)2018-07-23 19:22:00* Test Item Value Reference Range Interpretation Comments Monocytes % (Manual) (test code = 744-3) 10 3.4-9.0 H [facility]entonPlatelet Balvbtbh2344-72-76 19:22:00* Test Item Value Reference Range Interpretation Comments Platelet Estimate (test code = 32356-3) ADEQUATE [facility]entonPlatelet Morphology Qclotou3563-57-15 19:22:00* Test Item Value Reference Range Interpretation Comments Platelet Morphology Comment (test code = 14121-3) NORMAL [facility]entonRed Cell Morphology Sgiedcj6931-35-37 19:22:00* Test Item Value Reference Range Interpretation Comments Red Cell Morphology Comment (test code = 6742-1) NORMAL [facility]entonDifferential Total Cells Counted 2018-07-23 19:22:00* Test Item Value Reference Range Interpretation Comments Differential Total Cells Counted (test code = Dilip tial Total Cells Counted) 100 [facility]entonNeutrophils % (Manual)2018-07-23 19:22:00 * Test Item Value Reference Range Interpretation Comments Neutrophils % (Manual) (test code = 78781-3) 79 40-74 H [facility]entonLymphocytes % (Manual)2018-07-23 19:22:00 * Test Item Value Reference Range Interpretation Comments Lymphocytes % (Manual) (test code = 737-7) 11 19-48 L [facility]entonMonocytes % (Manual)2018-07-23 19:22:00* Test Item Value Reference Range Interpretation Comments Monocytes % (Manual) (test code = 744-3) 10 3.4-9.0 H [facility]entonPlatelet Mkvmhejc2422-46-89 19:22:00* Test Item Value Reference Range Interpretation Comments Platelet Estimate (test code = 92876-4) ADEQUATE [facility]entonPlatelet Morphology Mroycvz6600-48-48 19:22:00* Test Item Value Reference Range Interpretation Comments Platelet Morphology Comment (test code = 31598-2) NORMAL [facility]entonRed Cell Morphology Vpjkdpm5893-17-56 19:22:00* Test Item Value Reference Range Interpretation Comments Red Cell Morphology Comment (test code = 6742-1) NORMAL [facility]entonDifferential Total Cells Counted 2018-07-23 19:22:00* Test Item Value Reference Range Interpretation Comments Differential Total Cells Counted (test code = Differen tial Total Cells Counted) 100 [facility]entonNeutrophils % (Manual)2018-07-23 19:22:00 * Test Item Value Reference Range Interpretation Comments Neutrophils % (Manual) (test code = 00057-8) 79 40-74 H [facility]entonLymphocytes % (Manual)2018-07-23 19:22:00 * Test Item Value Reference Range Interpretation Comments Lymphocytes % (Manual) (test code = 737-7) 11 19-48 L [facility]entonMonocytes % (Manual)2018-07-23 19:22:00* Test Item Value Reference Range Interpretation Comments Monocytes % (Manual) (test code = 744-3) 10 3.4-9.0 H [facility]entonPlatelet Xgtclrin4449-41-90 19:22:00* Test Item Value Reference Range Interpretation Comments Platelet Estimate (test code = 87656-5) ADEQUATE [facility]entonPlatelet Morphology Bgcosev7660-28-25 19:22:00* Test Item Value Reference Range Interpretation Comments Platelet Morphology Comment (test code = 24951-4) NORMAL [facility]entonRed Cell Morphology Yrcwplj5284-68-69 19:22:00* Test Item Value Reference Range Interpretation Comments Red Cell Morphology Comment (test code = 6742-1) NORMAL [facility]entonBedside Hoaqggh6329-31-65 08:31:00* Test Item Value Reference Range Interpretation Comments Bedside Glucose (test code = 55006-1) 382 70-120 H Meter ID: [id number] [facility]inteodium Level 2018-05-19 06:01:00* Test Item Value Reference Range Interpretation Comments Sodium Level (test code = 2951-2) 135 136-145 L [facility]entonPotassium Jwnaj8162-22-22 06:01:00* Test Item Value Reference Range Interpretation Comments Potassium Level (test code = 2823-3) 3.3 3.5-5.1 L [facility]entonChloride Efcbc0568-83-58 06:01:00* Test Item Value Reference Range Interpretation Comments Chloride Level (test code = 2075-0) 96 98-107 L [facility] DentonCarbon Dioxide Fkidy4369-47-95 06:01:00* Test Item Value Reference Range Interpretation Comments Carbon Dioxide Level (test code = 2028-9) 29 22-29 [facility]entonAnion Acd9460-12-18 06:01:00* Test Item Value Reference Range Interpretation Comments Anion Gap (test code = 94100-1) 13.3 8-16 [facility]entonBlood Urea Flvhbbmf2325-33-25 06:01:00* Test Item Value Reference Range Interpretation Comments Blood Urea Nitrogen (test code = 3094-0) 7 7-26 [facility]entonCreatinine2018-07-09 06:01:00* Test Item Value Reference Range Interpretation Comments Creatinine (test code = 2160-0) 0.61 0.72-1.25 L [facility]entonBUN/Creatinine Teyus4941-30-32 06:01:00* Test Item Value Reference Range Interpretation Comments BUN/Creatinine Ratio (test code = 3097-3) 11 6-25 [facility]entonEstimat Glomerular Filtration Rate 2018-05-19 06:01:00* Test Item Value Reference Range Interpretation Comments Estimat Glomerular Filtration Rate (test code = 46156-1) 60- >60 Ranges were taken from the National Kidney Disease Education Program and the [facility] Foundation literature.Reference ranges:60 or greater: Gbrmps66-55 ( for 3 consecutive months): Chronic kidney disease 15 or less: Kidney failureTexas Health DentonGlucose Hdxrh8186-92-47 06:01:00* Test Item Value Reference Range Interpretation Comments Glucose Level (test code = ZYM3003) 204 74-118 H [facility]entonCalcium Fraby5187-35-20 06:01:00* Test Item Value Reference Range Interpretation Comments Calcium Level (test code = 25212-9) 8.5 8.4-10.2 [facility]entonTotal Bzwtkrxid8412-97-25 06:01:00* Test Item Value Reference Range Interpretation Comments Total Bilirubin (test code = 1975-2) 1.7 0.2-1.2 H [facility] DentonAspartate Amino Transf (AST/SGOT) 2018-05-19 06:01:00* Test Item Value Reference Range Interpretation Comments Aspartate Amino Transf (AST/SGOT) (test code = Aspartate Amino Transf (AST/SGOT)) 9 5-34 [facility]entonAlanine Aminotransferase (ALT/SGPT) 2018-05-19 06:01:00* Test Item Value Reference Range Interpretation Comments Alanine Aminotransferase (ALT/SGPT) (test code = 1742-6) 7 0-55 [facility]entonTotal Wdvyvps7875-90-73 06:01:00* Test Item Value Reference Range Interpretation Comments Total Protein (test code = 2885-2) 5.9 6.5-8.1 L [facility]entonAlbumin2018-07-09 06:01:00* Test Item Value Reference Range Interpretation Comments Albumin (test code = 1751-7) 3.4 3.5-5.0 L [facility]entonGlobulin2018-07-09 06:01:00* Test Item Value Reference Range Interpretation Comments Globulin (test code = 91636-6) 2.5 2.3-3.5 [facility]entonAlbumin/Globulin Rxjml9977-44-58 06:01:00 * Test Item Value Reference Range Interpretation Comments Albumin/Globulin Ratio (test code = 1759-0) 1.4 0.8-2.0 [facility]entonAlkaline Bckbhcvhplu7014-22-75 06:01:00* Test Item Value Reference Range Interpretation Comments Alkaline Phosphatase (test code = 6768-6) 69 40-150 [facility]entonTotal Unhwygcze9022-81-39 06:01:00* Test Item Value Reference Range Interpretation Comments Total Bilirubin (test code = 1975-2) 1.7 0.2-1.2 H [facility] DentonAspartate Amino Transf (AST/SGOT) 2018-05-19 06:01:00* Test Item Value Reference Range Interpretation Comments Aspartate Amino Transf (AST/SGOT) (test code = Aspartate Amino Transf (AST/SGOT)) 9 5-34 [facility]entonAlanine Aminotransferase (ALT/SGPT) 2018-05-19 06:01:00* Test Item Value Reference Range Interpretation Comments Alanine Aminotransferase (ALT/SGPT) (test code = 1742-6) 7 0-55 [facility]entonTotal Gxjpnkr0713-11-66 06:01:00* Test Item Value Reference Range Interpretation Comments Total Protein (test code = 2885-2) 5.9 6.5-8.1 L [facility]entonAlbumin2018-07-09 06:01:00* Test Item Value Reference Range Interpretation Comments Albumin (test code = 1751-7) 3.4 3.5-5.0 L [facility]entonGlobulin2018-07-09 06:01:00* Test Item Value Reference Range Interpretation Comments Globulin (test code = 53637-1) 2.5 2.3-3.5 [facility]entonAlbumin/Globulin Qpobq2337-20-25 06:01:00 * Test Item Value Reference Range Interpretation Comments Albumin/Globulin Ratio (test code = 1759-0) 1.4 0.8-2.0 [facility]entonAlkaline Egfzbifnxdx5871-16-91 06:01:00* Test Item Value Reference Range Interpretation Comments Alkaline Phosphatase (test code = 6768-6) 69 40-150 [facility]entonWhite Blood Fhkfs0210-52-95 05:14:00* Test Item Value Reference Range Interpretation Comments White Blood Count (test code = 6690-2) 5.49 4.8-10.8 [facility]entonRed Blood Zthmi2533-78-50 05:14:00* Test Item Value Reference Range Interpretation Comments Red Blood Count (test code = 789-8) 4.19 4.3-5.7 L [facility]entonHemoglobin2018-07-09 05:14:00* Test Item Value Reference Range Interpretation Comments Hemoglobin (test code = 72655-8) 13.1 14.0-18.0 L [facility]entonHematocrit2018-07-09 05:14:00* Test Item Value Reference Range Interpretation Comments Hematocrit (test code = 4544-3) 34.8 38.2-49.6 L [facility]entonMean Corpuscular Avbdji5992-41-51 05:14:00* Test Item Value Reference Range Interpretation Comments Mean Corpuscular Volume (test code = 787-2) 83.1 81-99 [facility]entonMean Corpuscular Xqomicvanb8442-29-00 05:14:00* Test Item Value Reference Range Interpretation Comments Mean Corpuscular Hemoglobin (test code = 785-6) 31.3 28-32 [facility]entonMean Corpuscular Hemoglobin Concent 2018-05-19 05:14:00* Test Item Value Reference Range Interpretation Comments Mean Corpuscular Hemoglobin Concent (test code = 786-4) 37.6 31-35 H [facility]entonRed Cell Distribution Kycuu3237-45-44 05:14:00* Test Item Value Reference Range Interpretation Comments Red Cell Distribution Width (test code = 14069-3) 11.8 11.7 -14.4 [facility]entonPlatelet Dgiar5193-61-15 05:14:00* Test Item Value Reference Range Interpretation Comments Platelet Count (test code = 777-3) 216 140-360 [facility]entonNeutrophils (%) (Auto)2018-05-19 05:14:00 * Test Item Value Reference Range Interpretation Comments Neutrophils (%) (Auto) (test code = 02261-0) 63.0 38.7-80.0 [facility]entonLymphocytes (%) (Auto)2018-05-19 05:14:00 * Test Item Value Reference Range Interpretation Comments Lymphocytes (%) (Auto) (test code = 736-9) 28.8 18.0-39.1 [facility]entonMonocytes (%) (Auto)2018-05-19 05:14:00* Test Item Value Reference Range Interpretation Comments Monocytes (%) (Auto) (test code = 5905-5) 6.7 4.4-11.3 [facility]entonEosinophils (%) (Auto)2018-05-19 05:14:00 * Test Item Value Reference Range Interpretation Comments Eosinophils (%) (Auto) (test code = 713-8) 0.9 0.0-6.0 [facility]entonBasophils (%) (Auto)2018-05-19 05:14:00* Test Item Value Reference Range Interpretation Comments Basophils (%) (Auto) (test code = 706-2) 0.4 0.0-1.0 [facility]entonIM GRANULOCYTES %2018-05-19 05:14:00* Test Item Value Reference Range Interpretation Comments IM GRANULOCYTES % (test code = IM GRANULOCYTES %) 0.2 0.0- 1.0 [facility]entonNeutrophils # (Auto)2018-05-19 05:14:00* Test Item Value Reference Range Interpretation Comments Neutrophils # (Auto) (test code = 751-8) 3.5 2.1-6.9 [facility]entonLymphocytes # (Auto)2018-05-19 05:14:00* Test Item Value Reference Range Interpretation Comments Lymphocytes # (Auto) (test code = 82197-5) 1.6 1.0-3.2 [facility]entonMonocytes # (Auto)2018-05-19 05:14:00* Test Item Value Reference Range Interpretation Comments Monocytes # (Auto) (test code = 742-7) 0.4 0.2-0.8 [facility]entonEosinophils # (Auto)2018-05-19 05:14:00* Test Item Value Reference Range Interpretation Comments Eosinophils # (Auto) (test code = 711-2) 0.1 0.0-0.4 [facility]entonBasophils # (Auto)2018-05-19 05:14:00* Test Item Value Reference Range Interpretation Comments Basophils # (Auto) (test code = 704-7) 0.0 0.0-0.1 [facility]entonAbsolute Immature Granulocyte (auto 2018-05-19 05:14:00* Test Item Value Reference Range Interpretation Comments Absolute Immature Granulocyte (auto (navya t code = Absolute Immature Granulocyte (auto) 0.01 0-0.1 [facility]entonMagnesium Wutxu8437-80-82 05:44:00* Test Item Value Reference Range Interpretation Comments Magnesium Level (test code = 23886-5) 1.9 1.3-2.1 [facility] Yspstwqsi3857-04-00 05:40:00* Test Item Value Reference Range Interpretation Comments Free Thyroxine (test code = 3024-7) 1.03 0.9-1.8 [facility]entonThyroid Stimulating Hormone (TSH) 2018-05-18 05:40:00* Test Item Value Reference Range Interpretation Comments Thyroid Stimulating Hormone (TSH) (test code = 01851-0) 0.825 0.350-4.940 [facility] Rfkezevyi7458-56-66 05:40:00* Test Item Value Reference Range Interpretation Comments Free Thyroxine (test code = 3024-7) 1.03 0.9-1.8 [facility] Xaqjwoiuv8752-65-23 05:40:00* Test Item Value Reference Range Interpretation Comments Free Thyroxine (test code = 3024-7) 1.03 0.9-1.8 [facility] Qsfqyckah5049-92-31 05:40:00* Test Item Value Reference Range Interpretation Comments Free Thyroxine (test code = 3024-7) 1.03 0.9-1.8 [facility]entonHemoglobin A1c Xtlykza2542-25-58 05:09:00 * Test Item Value Reference Range Interpretation Comments Hemoglobin A1c Percent (test code = Hemoglobin A1c Percent) 9.2 4.0-7.0 [facility] JJNLTPC6003-38-04 06:00:00* Test Item Value Reference Range Interpretation Comments CULTURE (BEAKER) (test code = 1095) No growth in 5 days BLOOD XURIEES8741-16-33 06:00:00* Test Item Value Reference Range Interpretation Comments CULTURE (BEAKER) (test code = 1095) No growth in 5 days POCT-GLUCOSE RNKOD4508-61-27 14:23:00* Test Item Value Reference Range Interpretation Comments POC-GLUCOSE METER (BEAKER) (test code = 1538) 205 mg/dL 70-110 H TESTED AT [address] [address] POCT-GLUCOSE JFPPZ5069-89-98 11:35:00* Test Item Value Reference Range Interpretation Comments POC-GLUCOSE METER (BEAKER) (test code = 1538) 251 mg/dL 70-110 H TESTED AT [address] [address] POCT-GLUCOSE ZWTFY3008-33-78 07:52:00* Test Item Value Reference Range Interpretation Comments POC-GLUCOSE METER (BEAKER) (test code = 1538) 174 mg/dL 70-110 H TESTED AT [address] [address] POCT-GLUCOSE [id number] 07:19:00* Test Item Value Reference Range Interpretation Comments POC-GLUCOSE METER (BEAKER) (test code = 1538) 140 mg/dL 70-110 H TESTED AT [address] [address] BASIC METABOLIC ZEHIH6655-25-28 05:59:00* Test Item Value Reference Range Interpretation [...] 413) 0 /100 WBC 0 -0 POCT-GLUCOSE GTTNI6489-41-96 01:33:00* Test Item Value Reference Range Interpretation Comments POC-GLUCOSE METER (BEAKER) (test code = 1538) 149 mg/dL 70-110 H TESTED AT [facility] [address] [facility] [address] POCT-GLUCOSE QPAKV7988-35-70 16:30:00* Test Item Value Reference Range Interpretation Comments POC-GLUCOSE METER (BEAKER) (test code = 1538) 83 mg/dL 70-110 TESTED AT [facility] [address] [facility] [address] RESPIRATORY PANEL [id number] 13:31:00* Test Item Value Reference Range Interpretation [...] Not detect ed Not detected, Inconclusive POCT-GLUCOSE [id number] 11:48:00* Test Item Value Reference Range Interpretation Comments POC-GLUCOSE METER (BEAKER) (test code = 1538) 213 mg/dL 70-110 H TESTED AT [facility] [address] [facility] [address] URINE BJMXFSM7702-12-65 11:31:00* Test Item Value Reference Range Interpretation Comments CULTURE (BEAKER) (test code = 1095) No growth CBC W/PLT COUNT & AUTO MWJBTSAKPOFU1092-56-79 09:45:00* Test Item Value Reference Range Interpretation [...] % 0-1 RAD, CHEST, 1 VIEW, NON PKTP8198-61-71 09:41:00Reason for exam:->assess for acute processShould this be performed at the bedside?->YesFINAL REPORT INDICATION: assess for acute process COMPARISON: None. TECHNIQUE: Chest radiograph, single view, portable technique. FINDINGS / IMPRESSION: There is no evidence of pneumonia or pulmonary edema. Cardiac and mediastinal contours are unremarkable. No pleural effusion or pneumothorax is demonstrated. Osseous structures are unremarkable. Signed: Erasmo Roman Verified Date/Time: 03/10/2018 09:41:23 Reading Location: [facility] Radiology Reading Room -GLUCOSE [id number] 08:15:00* Test Item Value Reference Range Interpretation Comments POC-GLUCOSE METER (BEAKER) (test code = 1538) 165 mg/dL 70-110 H TESTED AT [facility] [address] [facility] [address] [id number] 05:18:00* Test Item Value Reference Range Interpretation Comments MAGNESIUM (BEAKER) (test code = 627) 1.9 mg/dL 1.6-2.6 NELGVKFRXU0912-94-14 05:18:00* Test Item Value Reference Range Interpretation Comments PHOSPHORUS (BEAKER) (test code = 604) 2.4 mg/dL 2.3-4.7 BASIC METABOLIC [id number] 05:18:00* Test Item Value Reference Range Interpretation [...] IS NOT APPLICABLE FOR DIALYSIS PATIENTS. POCT-GLUCOSE [id number] 04:43:00* Test Item Value Reference Range Interpretation Comments POC-GLUCOSE METER (BEAKER) (test code = 1538) 195 mg/dL 70-110 H TESTED AT [place] [id number] [facility] [address] POCT-GLUCOSE [id number] 00:40:00* Test Item Value Reference Range Interpretation Comments POC-GLUCOSE METER (BEAKER) (test code = 1538) 196 mg/dL 70-110 H TESTED AT [address] [address] BASIC METABOLIC [id number] 20:41:00* Test Item Value Reference Range Interpretation [...] GFR IS NOT APPLICABLE FOR DIALYSIS PATIENTS. [id number] 20:39:00* Test Item Value Reference Range Interpretation Comments PHOSPHORUS (BEAKER) (test code = 604) 2.0 mg/dL 2.3-4.7 L Specimen slightly hemolyzed POCT-GLUCOSE [id number] 20:26:00* Test Item Value Reference Range Interpretation Comments POC-GLUCOSE METER (BEAKER) (test code = 1538) 207 mg/dL 70-110 H TESTED AT [facility] [address] [facility] [address] POCT-GLUCOSE [id number] 18:06:00* Test Item Value Reference Range Interpretation Comments POC-GLUCOSE METER (BEAKER) (test code = 1538) 202 mg/dL 70-110 H TESTED AT [facility] [address] [facility] [address] BASIC METABOLIC [id number] 17:12:00* Test Item Value Reference Range Interpretation [...] GFR IS NOT APPLICABLE FOR DIALYSIS PATIENTS. [id number] 17:10:00* Test Item Value Reference Range Interpretation Comments PHOSPHORUS (BEAKER) (test code = 604) 1.7 mg/dL 2.3-4.7 L Specimen slightly hemolyzed POCT-GLUCOSE [id number] 17:07:00* Test Item Value Reference Range Interpretation Comments POC-GLUCOSE METER (BEAKER) (test code = 1538) 211 mg/dL 70-110 H TESTED AT [facility] [address] [facility] [address] POCT-GLUCOSE [id number] 15:39:00* Test Item Value Reference Range Interpretation Comments POC-GLUCOSE METER (BEAKER) (test code = 1538) 244 mg/dL 70-110 H TESTED AT [place] [id number] [facility] [address] POCT-GLUCOSE [id number] 13:45:00* Test Item Value Reference Range Interpretation Comments POC-GLUCOSE METER (BEAKER) (test code = 1538) 239 mg/dL 70-110 H TESTED AT [address] [address] [id number] 13:44:00* Test Item Value Reference Range Interpretation Comments PHOSPHORUS (BEAKER) (test code = 604) 2.2 mg/dL 2.3-4.7 L BASIC METABOLIC [id number] 13:16:00* Test Item Value Reference Range Interpretation [...] IS NOT APPLICABLE FOR DIALYSIS PATIENTS. POCT-GLUCOSE [id number] 12:01:00* Test Item Value Reference Range Interpretation Comments POC-GLUCOSE METER (BEAKER) (test code = 1538) 255 mg/dL 70-110 H TESTED AT [facility] [address] [facility] [address] HEMOGLOBIN [id number] 11:41:00* Test Item Value Reference Range Interpretation Comments HEMOGLOBIN A1C (BEAKER) (test code = 368) 11.3 % 4.3-6.1 H POCT-GLUCOSE [id number] 10:53:00* Test Item Value Reference Range Interpretation Comments POC-GLUCOSE METER (BEAKER) (test code = 1538) 240 mg/dL 70-110 H TESTED AT [facility] [address] [facility] [address] [id number] 09:39:00* Test Item Value Reference Range Interpretation Comments PROCALCITONIN (BEAKER) (test code = 3036) < ng/mL <0.05 SEPSIS RISK (ng/mL)Low: 0.05-0.50Intermediate: 0.51-2.00High: > =2.01BASIC METABOLIC [id number] 08:57:00* Test Item Value Reference Range Interpretation [...] do bedside glucose instead of serum gluco se.[id number] 08:51:00* Test Item Value Reference Range Interpretation Comments PHOSPHORUS (BEAKER) (test code = 604) 2.1 mg/dL 2.3-4.7 L Specimen slightly hemolyzed If last glucose was less than 500, may do bedside glucose instead of serum gluco se.[id number] 08:51:00* Test Item Value Reference Range Interpretation Comments GLUCOSE RANDOM (BEAKER) (test code = 652) 145 mg/dL 70-105 H If last glucose was less than 500, may do bedside glucose instead of serum gluco se.POCT-GLUCOSE [id number] 08:39:00* Test Item Value Reference Range Interpretation Comments POC-GLUCOSE METER (BEAKER) (test code = 1538) 135 mg/dL 70-110 H TESTED AT [facility] [address] [facility] [address] [id number] 08:16:00* Test Item Value Reference Range Interpretation Comments PHOSPHORUS (BEAKER) (test code = 604) 1.5 mg/dL 2.3-4.7 LL Specimen slightly hemolyzed BASIC METABOLIC [id number] 08:14:00* Test Item Value Reference Range Interpretation [...] NOT APPLICABLE FOR DIALYSIS PATIENTS. BASIC METABOLIC [id number] 08:06:00* Test Item Value Reference Range Interpretation [...] NOT APPLICABLE FOR DIALYSIS PATIENTS. URINALYSIS W/ [id number] 07:41:00* Test Item Value Reference Range Interpretation [...] 4 /LPF SOURCE(BEAKER) (test code = 2795) [id number] 07:32:00* Test Item Value Reference Range Interpretation Comments POTASSIUM (BEAKER) (test code = 379) 3.9 meq/L 3.5-5.1 Specimen moderately hemolyzed POCT-GLUCOSE [id number] 07:21:00* Test Item Value Reference Range Interpretation Comments POC-GLUCOSE METER (BEAKER) (test code = 1538) 103 mg/dL 70-110 [address]ED AT [address] [address] POCT-GLUCOSE [id number] 06:48:00* Test Item Value Reference Range Interpretation Comments POC-GLUCOSE METER (BEAKER) (test code = 1538) 155 mg/dL 70-110 H TESTED AT [facility] [address] [place] [address] T4, [id number] 06:37:00* Test Item Value Reference Range Interpretation Comments FREE T4 (BEAKER) (test code = 655) 1.22 ng/dL 0.70-1.48 TSH/FREE T4 IF [id number] 05:40:00* Test Item Value Reference Range Interpretation Comments THYROID STIMULATING HORMONE (BEAKER) (test code = 772) 0.25 uIU/mL 0.35-4.94 L POCT-GLUCOSE [id number] 05:12:00* Test Item Value Reference Range Interpretation Comments POC-GLUCOSE METER (BEAKER) (test code = 1538) 171 mg/dL 70-110 H TESTED AT [address] [address] POCT-GLUCOSE [id number] 04:11:00* Test Item Value Reference Range Interpretation Comments POC-GLUCOSE METER (BEAKER) (test code = 1538) 204 mg/dL 70-110 H TESTED AT [address] [address] BLOOD GAS, [id number] 04:07:00* Test Item Value Reference Range Interpretation [...] (test code = 1819) 21.0 % POCT-GLUCOSE [id number] 03:09:00* Test Item Value Reference Range Interpretation Comments POC-GLUCOSE METER (BEAKER) (test code = 1538) 239 mg/dL 70-110 H TESTED AT [facility] [address] [facility] [address] LACTIC ACID, VENOUS, WHOLE [id number] 03:07:00* Test Item Value Reference Range Interpretation Comments LACTATE BLOOD VENOUS (2) (BEAKER) (test code = 2872) 1.7 mmol/L 0 .5-2.2 Specimen slightly hemolyzed Effective 03/14/2016: Units/Reference Range ChangeNew: 0.5-2.2 mmol/L Previous: 5 -20 mg/dLCBC W/PLT COUNT & AUTO [id number] 03:06:00* Test Item Value Reference Range Interpretation [...] code = 2801) 1 % 0-1 TROPONIN [id number] 03:05:00* Test Item Value Reference Range Interpretation [...] do bedside glucos e instead of serum glucose.[id number] 03:02:00* Test Item Value Reference Range Interpretation Comments LIPASE (BEAKER) (test code = 749) < U/L 8-78 L If last glucose was less than 500, may do bedside glucose instead of serum gluco se.[id number] 02:59:00* Test Item Value Reference Range Interpretation Comments POTASSIUM (BEAKER) (test code = 379) 4.8 meq/L 3.5-5.1 If last glucose was less than 500, may do bedside glucose instead of serum gluco se.[id number] 02:59:00* Test Item Value Reference Range Interpretation Comments MAGNESIUM (BEAKER) (test code = 627) 2.1 mg/dL 1.6-2.6 If last glucose was less than 500, may do bedside glucose instead of serum gluco se.[id number] 02:59:00* Test Item Value Reference Range Interpretation Comments PHOSPHORUS (BEAKER) (test code = 604) 2.9 mg/dL 2.3-4.7 If last glucose was less than 500, may do bedside glucose instead of serum gluco se.HEPATIC FUNCTION [id number] 02:59:00* Test Item Value Reference Range Interpretation [...] do bedside glucose instead of serum gluco se.[id number] 02:59:00* Test Item Value Reference Range Interpretation Comments GLUCOSE RANDOM (BEAKER) (test code = 652) 307 mg/dL 70-105 H If last glucose was less than 500, may do bedside glucose instead of serum gluco se.BASIC METABOLIC [id number] 02:59:00* Test Item Value Reference Range Interpretation [...] bedside glucose instead of serum gluco se.KETONE, [id number] 02:56:00* Test Item Value Reference Range Interpretation Comments KETONES, BLOOD (BEAKER) (test code = 1103) 4.8 mmol/L <0.4 H POCT-GLUCOSE [id number] 01:25:00* Test Item Value Reference Range Interpretation Comments POC-GLUCOSE METER (BEAKER) (test code = 1538) 276 mg/dL 70-110 H TESTED AT [facility] [address] [facility] [address] Lactic Acid [id number] 21:28:00* Test Item Value Reference Range Interpretation Comments Lactic Acid Level (test code = Lactic Acid Level) 44.6 4.5- 19.8 [facility] [id number] 21:28:00* Test Item Value Reference Range Interpretation Comments Lactic Acid Level (test code = Lactic Acid Level) 44.6 4.5- 19.8 H [facility] Acid [id number] 21:28:00* Test Item Value Reference Range Interpretation Comments Lactic Acid Level (test code = Lactic Acid Level) 44.6 4.5- 19.8 H [facility] Acid [id number] 21:28:00* Test Item Value Reference Range Interpretation Comments Lactic Acid Level (test code = Lactic Acid Level) 44.6 4.5- 19.8 H [facility] [id number] 16:13:00* Test Item Value Reference Range Interpretation Comments Bedside Glucose (test code = 05404-9) 77 70-120 Meter ID: [id number] [facility]. [facility] Glucose 2018-01-29 16:13:00* Test Item Value Reference Range Interpretation Comments Bedside Glucose (test code = 50560-8) 77 70-120 Meter ID: [id number] R. [facility] Glucose 2018-01-29 11:49:00* Test Item Value Reference Range Interpretation Comments Bedside Glucose (test code = 48261-2) 108 70-120 Meter ID: [id number] Scott & [facility]inteodium Level 2018-01-29 07:03:00* Test Item Value Reference Range Interpretation Comments Sodium Level (test code = 2951-2) 135 136-145 L [facility] [id number] 07:03:00* Test Item Value Reference Range Interpretation Comments Potassium Level (test code = 2823-3) 3.2 3.5-5.1 L [facility]Chloride [id number] 07:03:00* Test Item Value Reference Range Interpretation Comments Chloride Level (test code = 2075-0) 99 98-107 [facility]entonCarbon Dioxide [id number] 07:03:00* Test Item Value Reference Range Interpretation Comments Carbon Dioxide Level (test code = 2028-9) 28 22-29 [facility]Anion [id number] 07:03:00* Test Item Value Reference Range Interpretation Comments Anion Gap (test code = 24958-3) 11.2 8-16 [facility]Blood Urea Oswfedtl7087-15-93 07:03:00* Test Item Value Reference Range Interpretation Comments Blood Urea Nitrogen (test code = 3094-0) 7 7-26 [facility]Creatinine2018-03-21 07:03:00* Test Item Value Reference Range Interpretation Comments Creatinine (test code = 2160-0) 0.58 0.72-1.25 L [facility]entonBUN/Creatinine Zezuq9673-89-44 07:03:00* Test Item Value Reference Range Interpretation Comments BUN/Creatinine Ratio (test code = 3097-3) 12 05-05 [facility]entonEstimat Glomerular Filtration Rate 2018-01-29 07:03:00* Test Item Value Reference Range Interpretation Comments Estimat Glomerular Filtration Rate (test code = 56153-6) 60- >60 Ranges were taken from the National Kidney Disease Education Program and the [facility] Foundation literature.Reference ranges:60 or greater: Suakkr22-52 ( for 3 consecutive months): Chronic kidney disease 15 or less: Kidney failureTexas Health DentonGlucose Jvnsu6577-05-87 07:03:00* Test Item Value Reference Range Interpretation Comments Glucose Level (test code = LXP8100) 184 74-118 H [facility]entonCalcium Dtvih1042-61-40 07:03:00* Test Item Value Reference Range Interpretation Comments Calcium Level (test code = 82163-0) 8.4 8.4-10.2 [facility]inteodium Mbtuo2843-80-44 07:03:00* Test Item Value Reference Range Interpretation Comments Sodium Level (test code = 2951-2) 135 136-145 L [facility]Potassium Onadm5019-65-40 07:03:00* Test Item Value Reference Range Interpretation Comments Potassium Level (test code = 2823-3) 3.2 3.5-5.1 L [facility]entonChloride Ihxnz1465-72-28 07:03:00* Test Item Value Reference Range Interpretation Comments Chloride Level (test code = 2075-0) 99 98-107 [facility]entonCarbon Dioxide [id number] 07:03:00* Test Item Value Reference Range Interpretation Comments Carbon Dioxide Level (test code = 2028-9) 28 22-29 [facility]entonAnion [id number] 07:03:00* Test Item Value Reference Range Interpretation Comments Anion Gap (test code = 53759-2) 11.2 8-16 [facility]Blood Urea [id number] 07:03:00* Test Item Value Reference Range Interpretation Comments Blood Urea Nitrogen (test code = 3094-0) 7 7-26 [facility]entonCreatinine2018-03-21 07:03:00* Test Item Value Reference Range Interpretation Comments Creatinine (test code = 2160-0) 0.58 0.72-1.25 L [facility]entonBUN/Creatinine Zzrsh6539-04-71 07:03:00* Test Item Value Reference Range Interpretation Comments BUN/Creatinine Ratio (test code = 3097-3) 12 6- [facility]entonEstimat Glomerular Filtration Rate 2018-01-29 07:03:00* Test Item Value Reference Range Interpretation Comments Estimat Glomerular Filtration Rate (test code = 66064-9) 60- >60 Ranges were taken from the National Kidney Disease Education Program and the [facility] literature.Reference ranges:60 or greater: Vqqerd02-02 ( for 3 consecutive months): Chronic kidney disease 15 or less: Kidney failureTexas Health DentonGlucose Cnild9432-66-39 07:03:00* Test Item Value Reference Range Interpretation Comments Glucose Level (test code = MXF3232) 184 74-118 H [facility]entonCalcium Ozuie1766-02-07 07:03:00* Test Item Value Reference Range Interpretation Comments Calcium Level (test code = 64658-4) 8.4 8.4-10.2 [facility]inteodium Lnhtm6575-21-12 07:03:00* Test Item Value Reference Range Interpretation Comments Sodium Level (test code = 2951-2) 135 136-145 L [facility]Potassium Zcspt4888-58-51 07:03:00* Test Item Value Reference Range Interpretation Comments Potassium Level (test code = 2823-3) 3.2 3.5-5.1 L [facility]entonChloride Zshej3419-79-37 07:03:00* Test Item Value Reference Range Interpretation Comments Chloride Level (test code = 2075-0) 99 98-107 [facility]entonCarbon Dioxide [id number] 07:03:00* Test Item Value Reference Range Interpretation Comments Carbon Dioxide Level (test code = 2028-9) 28 22-29 [facility]entonAnion [id number] 07:03:00* Test Item Value Reference Range Interpretation Comments Anion Gap (test code = 64094-4) 11.2 8-16 [facility]entonBlood Urea Jxmwfgiv7531-02-58 07:03:00* Test Item Value Reference Range Interpretation Comments Blood Urea Nitrogen (test code = 3094-0) 7 7-26 [facility]entonCreatinine2018-03-21 07:03:00* Test Item Value Reference Range Interpretation Comments Creatinine (test code = 2160-0) 0.58 0.72-1.25 L [facility]entonBUN/Creatinine Znpaj1388-62-27 07:03:00* Test Item Value Reference Range Interpretation Comments BUN/Creatinine Ratio (test code = 3097-3) 12 6-25 [facility]entonEstimat Glomerular Filtration Rate 2018-01-29 07:03:00* Test Item Value Reference Range Interpretation Comments Estimat Glomerular Filtration Rate (test code = 45365-3) 60- >60 Ranges were taken from the National Kidney Disease Education Program and the [facility] literature.Reference ranges:60 or greater: Oahxcc80-34 ( for 3 consecutive months): Chronic kidney disease 15 or less: Kidney failureTexas Health DentonGlucose Jzamy3770-10-25 07:03:00* Test Item Value Reference Range Interpretation Comments Glucose Level (test code = KYG8405) 184 74-118 H [facility]entonCalcium Ysxkd6030-35-77 07:03:00* Test Item Value Reference Range Interpretation Comments Calcium Level (test code = 26569-0) 8.4 8.4-10.2 [facility] Bvnxslnly1589-34-76 06:52:00* Test Item Value Reference Range Interpretation Comments Total Bilirubin (test code = 1974-2) 1.8 0.2-1.2 H [facility]entonAspartate Amino Transf (AST/SGOT) 2018-01-28 06:52:00* Test Item Value Reference Range Interpretation Comments Aspartate Amino Transf (AST/SGOT) (test code = Aspartate Amino Transf (AST/SGOT)) 12 5-34 [facility]entonAlanine Aminotransferase (ALT/SGPT) 2018-01-28 06:52:00* Test Item Value Reference Range Interpretation Comments Alanine Aminotransferase (ALT/SGPT) (test code = 1742-6) 8 0-55 [facility] Csjggji4570-26-84 06:52:00* Test Item Value Reference Range Interpretation Comments Total Protein (test code = 2885-2) 5.9 6.5-8.1 L [facility]entonAlbumin2018-03-20 06:52:00* Test Item Value Reference Range Interpretation Comments Albumin (test code = 1751-7) 3.2 3.5-5.0 L [facility]entonGlobulin2018-03-20 06:52:00* Test Item Value Reference Range Interpretation Comments Globulin (test code = 86246-8) 2.7 2.3-3.5 [facility]entonAlbumin/Globulin Luqap3545-40-22 06:52:00 * Test Item Value Reference Range Interpretation Comments Albumin/Globulin Ratio (test code = 1759-0) 1.2 0.8-2.0 [facility]entonAlkaline Ebfnphlcvxw3382-13-47 06:52:00* Test Item Value Reference Range Interpretation Comments Alkaline Phosphatase (test code = 6768-6) 94 40-150 [facility]entonTotal Foetxgdiz5307-14-84 06:52:00* Test Item Value Reference Range Interpretation Comments Total Bilirubin (test code = 1974-2) 1.8 0.2-1.2 H [facility] DentonAspartate Amino Transf (AST/SGOT) 2018-01-28 06:52:00* Test Item Value Reference Range Interpretation Comments Aspartate Amino Transf (AST/SGOT) (test code = Aspartate Amino Transf (AST/SGOT)) [facility]entonAlanine Aminotransferase (ALT/SGPT) 2018-01-28 06:52:00* Test Item Value Reference Range Interpretation Comments Alanine Aminotransferase (ALT/SGPT) (test code = 1742-6) 8 0-55 [facility]entonTotal Ehtivzg9846-45-35 06:52:00* Test Item Value Reference Range Interpretation Comments Total Protein (test code = 2885-2) 5.9 6.5-8.1 L [facility]entonAlbumin2018-03-20 06:52:00* Test Item Value Reference Range Interpretation Comments Albumin (test code = 1751-7) 3.2 3.5-5.0 L [facility]entonGlobulin2018-03-20 06:52:00* Test Item Value Reference Range Interpretation Comments Globulin (test code = 12749-5) 2.7 2.3-3.5 [facility]entonAlbumin/Globulin Lthhx2440-58-07 06:52:00 * Test Item Value Reference Range Interpretation Comments Albumin/Globulin Ratio (test code = 1759-0) 1.2 0.8-2.0 [facility]entonAlkaline Dxumdaplofu9519-80-71 06:52:00* Test Item Value Reference Range Interpretation Comments Alkaline Phosphatase (test code = 6768-6) 94 40-150 [facility]entonTotal Jxeysbqou1392-72-39 06:52:00* Test Item Value Reference Range Interpretation Comments Total Bilirubin (test code = 1975-2) 1.8 0.2-1.2 H [facility]entonAspartate Amino Transf (AST/SGOT) 2018-01-28 06:52:00* Test Item Value Reference Range Interpretation Comments Aspartate Amino Transf (AST/SGOT) (test code = Aspartate Amino Transf (AST/SGOT)) [facility]entonAlanine Aminotransferase (ALT/SGPT) 2018-01-28 06:52:00* Test Item Value Reference Range Interpretation Comments Alanine Aminotransferase (ALT/SGPT) (test code = 1742-6) 8 0-55 [facility]entonTotal Pflyxym7821-90-32 06:52:00* Test Item Value Reference Range Interpretation Comments Total Protein (test code = 2885-2) 5.9 6.5-8.1 L [facility]entonAlbumin2018-03-20 06:52:00* Test Item Value Reference Range Interpretation Comments Albumin (test code = 1751-7) 3.2 3.5-5.0 L [facility]entonGlobulin2018-03-20 06:52:00* Test Item Value Reference Range Interpretation Comments Globulin (test code = 16053-1) 2.7 2.3-3.5 [facility]entonAlbumin/Globulin Fiuci6911-11-52 06:52:00 * Test Item Value Reference Range Interpretation Comments Albumin/Globulin Ratio (test code = 1759-0) 1.2 0.8-2.0 [facility]entonAlkaline Adnvfutuetk9729-68-42 06:52:00* Test Item Value Reference Range Interpretation Comments Alkaline Phosphatase (test code = 6768-6) 94 40-150 [facility]entonWhite Blood Oaxex0647-93-79 06:18:00* Test Item Value Reference Range Interpretation Comments White Blood Count (test code = 6690-2) 6.43 4.8-10.8 [facility]entonRed Blood Bsmyg7501-02-58 06:18:00* Test Item Value Reference Range Interpretation Comments Red Blood Count (test code = 789-8) 4.86 4.3-5.7 [facility]entonHemoglobin2018-03-20 06:18:00* Test Item Value Reference Range Interpretation Comments Hemoglobin (test code = 35558-5) 15.3 14.0-18.0 [facility]entonHematocrit2018-03-20 06:18:00* Test Item Value Reference Range Interpretation Comments Hematocrit (test code = 4544-3) 41.2 38.2-49.6 [facility]entonMean Corpuscular Psprmb7882-20-06 06:18:00* Test Item Value Reference Range Interpretation Comments Mean Corpuscular Volume (test code = 787-2) 84.8 81-99 [facility]entonMean Corpuscular Mnvijhmrcj5038-19-42 06:18:00* Test Item Value Reference Range Interpretation Comments Mean Corpuscular Hemoglobin (test code = 785-6) 31.5 28-32 [facility]entonMean Corpuscular Hemoglobin Concent 2018-01-28 06:18:00* Test Item Value Reference Range Interpretation Comments Mean Corpuscular Hemoglobin Concent (test code = 786-4) 37.1 31-35 H [facility]entonRed Cell Distribution Ifidb7427-18-45 06:18:00* Test Item Value Reference Range Interpretation Comments Red Cell Distribution Width (test code = 02554-2) 10.8 11.7 -14.4 L [facility]entonPlatelet Adeoa8571-32-85 06:18:00* Test Item Value Reference Range Interpretation Comments Platelet Count (test code = 777-3) 197 140-360 [facility]entonNeutrophils (%) (Auto)2018-01-28 06:18:00 * Test Item Value Reference Range Interpretation Comments Neutrophils (%) (Auto) (test code = 44604-0) 58.3 38.7-80.0 [facility]entonLymphocytes (%) (Auto)2018-01-28 06:18:00 * Test Item Value Reference Range Interpretation Comments Lymphocytes (%) (Auto) (test code = 736-9) 31.9 18.0-39.1 [facility]entonMonocytes (%) (Auto)2018-01-28 06:18:00* Test Item Value Reference Range Interpretation Comments Monocytes (%) (Auto) (test code = 5905-5) 8.1 4.4-11.3 [facility]entonEosinophils (%) (Auto)2018-01-28 06:18:00 * Test Item Value Reference Range Interpretation Comments Eosinophils (%) (Auto) (test code = 713-8) 1.1 0.0-6.0 [facility]Basophils (%) (Auto)2018-01-28 06:18:00* Test Item Value Reference Range Interpretation Comments Basophils (%) (Auto) (test code = 706-2) 0.3 0.0-1.0 [facility]entonIM GRANULOCYTES %2018-01-28 06:18:00* Test Item Value Reference Range Interpretation Comments IM GRANULOCYTES % (test code = IM GRANULOCYTES %) 0.3 0.0- 1.0 [facility]entonNeutrophils # (Auto)2018-01-28 06:18:00* Test Item Value Reference Range Interpretation Comments Neutrophils # (Auto) (test code = 751-8) 3.8 2.1-6.9 [facility]entonLymphocytes # (Auto)2018-01-28 06:18:00* Test Item Value Reference Range Interpretation Comments Lymphocytes # (Auto) (test code = 41537-5) 2.1 1.0-3.2 [facility]entonMonocytes # (Auto)2018-01-28 06:18:00* Test Item Value Reference Range Interpretation Comments Monocytes # (Auto) (test code = 742-7) 0.5 0.2-0.8 [facility]entonEosinophils # (Auto)2018-01-28 06:18:00* Test Item Value Reference Range Interpretation Comments Eosinophils # (Auto) (test code = 711-2) 0.1 0.0-0.4 [facility]Basophils # (Auto)2018-01-28 06:18:00* Test Item Value Reference Range Interpretation Comments Basophils # (Auto) (test code = 704-7) 0.0 0.0-0.1 [facility]entonAbsolute Immature Granulocyte (auto 2018-01-28 06:18:00* Test Item Value Reference Range Interpretation Comments Absolute Immature Granulocyte (auto (navya t code = Absolute Immature Granulocyte (auto) 0.02 0-0.1 [facility]entonWhite Blood Gqrop5241-59-83 06:18:00* Test Item Value Reference Range Interpretation Comments White Blood Count (test code = 6690-2) 6.43 4.8-10.8 [facility]entonRed Blood Jqdun3625-13-84 06:18:00* Test Item Value Reference Range Interpretation Comments Red Blood Count (test code = 789-8) 4.86 4.3-5.7 [facility]entonHemoglobin2018-03-20 06:18:00* Test Item Value Reference Range Interpretation Comments Hemoglobin (test code = 09484-9) 15.3 14.0-18.0 [facility]entonHematocrit2018-03-20 06:18:00* Test Item Value Reference Range Interpretation Comments Hematocrit (test code = 4544-3) 41.2 38.2-49.6 [facility]entonMean Corpuscular Xnreeh8090-84-08 06:18:00* Test Item Value Reference Range Interpretation Comments Mean Corpuscular Volume (test code = 787-2) 84.8 81-99 [facility] Wlmgshunlp3464-70-77 06:18:00* Test Item Value Reference Range Interpretation Comments Mean Corpuscular Hemoglobin (test code = 785-6) 31.5 28-32 [facility] Hemoglobin Concent 2018-01-28 06:18:00* Test Item Value Reference Range Interpretation Comments Mean Corpuscular Hemoglobin Concent (test code = 786-4) 37.1 31-35 [facility]Red Cell Distribution Banhe9869-66-12 06:18:00* Test Item Value Reference Range Interpretation Comments Red Cell Distribution Width (test code = 35155-4) 10.8 11.7 -14.4 L [facility]entonPlatelet Ululn7889-31-99 06:18:00* Test Item Value Reference Range Interpretation Comments Platelet Count (test code = 777-3) 197 140-360 [facility]Neutrophils (%) (Auto)2018-01-28 06:18:00 * Test Item Value Reference Range Interpretation Comments Neutrophils (%) (Auto) (test code = 82315-4) 58.3 38.7-80.0 [facility]entonLymphocytes (%) (Auto)2018-01-28 06:18:00 * Test Item Value Reference Range Interpretation Comments Lymphocytes (%) (Auto) (test code = 736-9) 31.9 18.0-39.1 [facility]Monocytes (%) (Auto)2018-01-28 06:18:00* Test Item Value Reference Range Interpretation Comments Monocytes (%) (Auto) (test code = 5905-5) 8.1 4.4-11.3 [facility]Eosinophils (%) (Auto)2018-01-28 06:18:00 * Test Item Value Reference Range Interpretation Comments Eosinophils (%) (Auto) (test code = 713-8) 1.1 0.0-6.0 [facility]ophils (%) (Auto)2018-01-28 06:18:00* Test Item Value Reference Range Interpretation Comments Basophils (%) (Auto) (test code = 706-2) 0.3 0.0-1.0 [facility]IM GRANULOCYTES %2018-01-28 06:18:00* Test Item Value Reference Range Interpretation Comments IM GRANULOCYTES % (test code = IM GRANULOCYTES %) 0.3 0.0- 1.0 [facility]Neutrophils # (Auto)2018-01-28 06:18:00* Test Item Value Reference Range Interpretation Comments Neutrophils # (Auto) (test code = 751-8) 3.8 2.1-6.9 [facility]Lymphocytes # (Auto)2018-01-28 06:18:00* Test Item Value Reference Range Interpretation Comments Lymphocytes # (Auto) (test code = 05701-3) 2.1 1.0-3.2 [facility]ocytes # (Auto)2018-01-28 06:18:00* Test Item Value Reference Range Interpretation Comments Monocytes # (Auto) (test code = 742-7) 0.5 0.2-0.8 [facility]Eosinophils # (Auto)2018-01-28 06:18:00* Test Item Value Reference Range Interpretation Comments Eosinophils # (Auto) (test code = 711-2) 0.1 0.0-0.4 [facility]Basophils # (Auto)2018-01-28 06:18:00* Test Item Value Reference Range Interpretation Comments Basophils # (Auto) (test code = 704-7) 0.0 0.0-0.1 [facility]entonAbsolute Immature Granulocyte (auto 2018-01-28 06:18:00* Test Item Value Reference Range Interpretation Comments Absolute Immature Granulocyte (auto (navya t code = Absolute Immature Granulocyte (auto) 0.02 0-0.1 [facility]entonWhite Blood Gdqef1251-41-17 06:18:00* Test Item Value Reference Range Interpretation Comments White Blood Count (test code = 6690-2) 6.43 4.8-10.8 [facility]entonRed Blood Hkcdn6728-93-23 06:18:00* Test Item Value Reference Range Interpretation Comments Red Blood Count (test code = 789-8) 4.86 4.3-5.7 [facility]Hemoglobin2018-03-20 06:18:00* Test Item Value Reference Range Interpretation Comments Hemoglobin (test code = 51302-5) 15.3 14.0-18.0 [facility]entonHematocrit2018-03-20 06:18:00* Test Item Value Reference Range Interpretation Comments Hematocrit (test code = 4544-3) 41.2 38.2-49.6 [facility] Corpuscular Glsxef9356-24-53 06:18:00* Test Item Value Reference Range Interpretation Comments Mean Corpuscular Volume (test code = 787-2) 84.8 81-99 [facility] Corpuscular Vexrxtvugc6996-22-88 06:18:00* Test Item Value Reference Range Interpretation Comments Mean Corpuscular Hemoglobin (test code = 785-6) 31.5 28-32 [facility]Mean Corpuscular Hemoglobin Concent 2018-01-28 06:18:00* Test Item Value Reference Range Interpretation Comments Mean Corpuscular Hemoglobin Concent (test code = 786-4) 37.1 31-35 H [facility]entonRed Cell Distribution Mmhhp0198-79-40 06:18:00* Test Item Value Reference Range Interpretation Comments Red Cell Distribution Width (test code = 88643-9) 10.8 11.7 -14.4 L [facility]Platelet Guewf5148-72-24 06:18:00* Test Item Value Reference Range Interpretation Comments Platelet Count (test code = 777-3) 197 140-360 [facility]Neutrophils (%) (Auto)2018-01-28 06:18:00 * Test Item Value Reference Range Interpretation Comments Neutrophils (%) (Auto) (test code = 47062-6) 58.3 38.7-80.0 [facility]entonLymphocytes (%) (Auto)2018-01-28 06:18:00 * Test Item Value Reference Range Interpretation Comments Lymphocytes (%) (Auto) (test code = 736-9) 31.9 18.0-39.1 [facility]Monocytes (%) (Auto)2018-01-28 06:18:00* Test Item Value Reference Range Interpretation Comments Monocytes (%) (Auto) (test code = 5905-5) 8.1 4.4-11.3 [facility]Eosinophils (%) (Auto)2018-01-28 06:18:00 * Test Item Value Reference Range Interpretation Comments Eosinophils (%) (Auto) (test code = 713-8) 1.1 0.0-6.0 [facility]Basophils (%) (Auto)2018-01-28 06:18:00* Test Item Value Reference Range Interpretation Comments Basophils (%) (Auto) (test code = 706-2) 0.3 0.0-1.0 [facility]entonIM GRANULOCYTES %2018-01-28 06:18:00* Test Item Value Reference Range Interpretation Comments IM GRANULOCYTES % (test code = IM GRANULOCYTES %) 0.3 0.0- 1.0 [facility]entonNeutrophils # (Auto)2018-01-28 06:18:00* Test Item Value Reference Range Interpretation Comments Neutrophils # (Auto) (test code = 751-8) 3.8 2.1-6.9 [facility]entonLymphocytes # (Auto)2018-01-28 06:18:00* Test Item Value Reference Range Interpretation Comments Lymphocytes # (Auto) (test code = 24261-7) 2.1 1.0-3.2 [facility]Monocytes # (Auto)2018-01-28 06:18:00* Test Item Value Reference Range Interpretation Comments Monocytes # (Auto) (test code = 742-7) 0.5 0.2-0.8 [facility]Eosinophils # (Auto)2018-01-28 06:18:00* Test Item Value Reference Range Interpretation Comments Eosinophils # (Auto) (test code = 711-2) 0.1 0.0-0.4 [facility]Basophils # (Auto)2018-01-28 06:18:00* Test Item Value Reference Range Interpretation Comments Basophils # (Auto) (test code = 704-7) 0.0 0.0-0.1 [facility]entonAbsolute Immature Granulocyte (auto 2018-01-28 06:18:00* Test Item Value Reference Range Interpretation Comments Absolute Immature Granulocyte (auto (navya t code = Absolute Immature Granulocyte (auto) 0.02 0-0.1 [facility]entonMagnesium Ilydr6265-82-64 18:54:00* Test Item Value Reference Range Interpretation Comments Magnesium Level (test code = 04745-7) 1.7 1.3-2.1 [facility]entonMagnesium Vnotf9246-52-38 18:54:00* Test Item Value Reference Range Interpretation Comments Magnesium Level (test code = 05294-2) 1.7 1.3-2.1 [facility]entonMagnesium Fytno7556-88-05 18:54:00* Test Item Value Reference Range Interpretation Comments Magnesium Level (test code = 59255-3) 1.7 1.3-2.1 [facility] Fbqompsyh7213-45-51 14:55:00* Test Item Value Reference Range Interpretation Comments Free Thyroxine (test code = 3024-7) 1.22 0.9-1.8 [facility]entonThyroid Stimulating Hormone (TSH) 2018-01-27 14:55:00* Test Item Value Reference Range Interpretation Comments Thyroid Stimulating Hormone (TSH) (test code = 10429-8) 0.979 0.350-4.940 [facility] Cpirzrbos9305-40-93 14:55:00* Test Item Value Reference Range Interpretation Comments Free Thyroxine (test code = 3024-7) 1.22 0.9-1.8 [facility]Thyroid Stimulating Hormone (TSH) 2018-01-27 14:55:00* Test Item Value Reference Range Interpretation Comments Thyroid Stimulating Hormone (TSH) (test code = 07994-4) 0.979 0.350-4.940 [facility] Ionnpweae9937-44-39 14:55:00* Test Item Value Reference Range Interpretation Comments Free Thyroxine (test code = 3024-7) 1.22 0.9-1.8 [facility]entonThyroid Stimulating Hormone (TSH) 2018-01-27 14:55:00* Test Item Value Reference Range Interpretation Comments Thyroid Stimulating Hormone (TSH) (test code = 54734-0) 0.979 0.350-4.940 [facility]entonHemoglobin A1c Tmhaqih2238-17-26 14:33:00 * Test Item Value Reference Range Interpretation Comments Hemoglobin A1c Percent (test code = Hemoglobin A1c Percent) 10.7 4.0-7.0 H [facility]entonHemoglobin A1c Gudussl9584-73-06 14:33:00 * Test Item Value Reference Range Interpretation Comments Hemoglobin A1c Percent (test code = Hemoglobin A1c Percent) 10.7 4.0-7.0 H [facility]entonHemoglobin A1c Dnhyhvl7742-67-60 14:33:00 * Test Item Value Reference Range Interpretation Comments Hemoglobin A1c Percent (test code = Hemoglobin A1c Percent) 10.7 4.0-7.0 H [facility]entonUrine TGH8221-08-87 02:00:00* Test Item Value Reference Range Interpretation Comments Urine WBC (test code = 5821-4) 11-20 0-5 H [facility]entonU[facility] [id number] 02:00:00* Test Item Value Reference Range Interpretation Comments Urine RBC (test code = 45623-2) 50- 0-5 H [facility] Rzpyrwcl6669-36-12 02:00:00* Test Item Value Reference Range Interpretation Comments Urine Bacteria (test code = 93600-4) MANY NONE H [facility] Epithelial Gmvqs8318-36-94 02:00:00 * Test Item Value Reference Range Interpretation Comments Urine Epithelial Cells (test code = 31407-0) [facility] 2018-01-27 02:00:00* Test Item Value Reference Range Interpretation Comments Urine Transitional Epithelial Cells (test code = 8249-5) [facility] [id number] 02:00:00* Test Item Value Reference Range Interpretation Comments Urine WBC (test code = 5821-4) 11-20 0-5 H [facility] [id number] 02:00:00* Test Item Value Reference Range Interpretation Comments Urine RBC (test code = 03866-2) 50- 0-5 H [facility] Rsjwrsay6535-65-04 02:00:00* Test Item Value Reference Range Interpretation Comments Urine Bacteria (test code = 95757-8) MANY NONE [facility] Epithelial Hjjuc7789-62-21 02:00:00 * Test Item Value Reference Range Interpretation Comments Urine Epithelial Cells (test code = 15305-7) [facility] Transitional Epithelial Cells 2018-01-27 02:00:00* Test Item Value Reference Range Interpretation Comments Urine Transitional Epithelial Cells (test code = 8249-5) FEW NONE [facility] [id number] 02:00:00* Test Item Value Reference Range Interpretation Comments Urine WBC (test code = 5821-4) 11-20 0-5 H [facility] [id number] 02:00:00* Test Item Value Reference Range Interpretation Comments Urine RBC (test code = 71057-5) 50- 0-5 H [facility] Wcxknkuh3474-13-75 02:00:00* Test Item Value Reference Range Interpretation Comments Urine Bacteria (test code = 21054-4) MANY NONE H [facility] Epithelial Dqhqa5517-00-65 02:00:00 * Test Item Value Reference Range Interpretation Comments Urine Epithelial Cells (test code = 78911-9) FEW [facility] Transitional Epithelial Cells 2018-01-27 02:00:00* Test Item Value Reference Range Interpretation Comments Urine Transitional Epithelial Cells (test code = 8249-5) FEW NONE [facility] [id number] 02:00:00* Test Item Value Reference Range Interpretation Comments Urine WBC (test code = 5821-4) 11-20 0-5 H [facility] [id number] 02:00:00* Test Item Value Reference Range Interpretation Comments Urine RBC (test code = 69465-2) 50- 0-5 H [facility] Dhdbjlcb9904-39-66 02:00:00* Test Item Value Reference Range Interpretation Comments Urine Bacteria (test code = 95408-8) MANY NONE [facility] Epithelial Svzsj8723-67-21 02:00:00 * Test Item Value Reference Range Interpretation Comments Urine Epithelial Cells (test code = 61755-1) FEW [facility] Transitional Epithelial Cells 2018-01-27 02:00:00* Test Item Value Reference Range Interpretation Comments Urine Transitional Epithelial Cells (test code = 8249-5) FEW [facility] Transitional Epithelial Cells 2018-01-27 02:00:00* Test Item Value Reference Range Interpretation Comments Urine Transitional Epithelial Cells (test code = 8249-5) FEW NONE [facility] Vphun4079-77-12 01:52:00* Test Item Value Reference Range Interpretation Comments Urine Color (test code = 5778-6) YELLOW YELLOW [facility] Bemjdiq5170-47-90 01:52:00* Test Item Value Reference Range Interpretation Comments Urine Clarity (test code = 25820-5) HAZY CLEAR [facility] Specific Qwpwxol9524-67-25 01:52:00 * Test Item Value Reference Range Interpretation Comments Urine Specific [place] (test code = 5811-5) 1.020 1.010-1.02 5 [facility] [id number] 01:52:00* Test Item Value Reference Range Interpretation Comments Urine pH (test code = 57256-2) 6 5-7 [facility] Leukocyte Uhxjyhdy5396-85-86 01:52:00* Test Item Value Reference Range Interpretation Comments Urine Leukocyte Esterase (test code = 5799-2) 1+ NEGATIVE H [facility] Ihozakg9343-20-84 01:52:00* Test Item Value Reference Range Interpretation Comments Urine Nitrite (test code = 71937-3) NEGATIVE NEGATIVE [facility] Fyoatoi4663-77-50 01:52:00* Test Item Value Reference Range Interpretation Comments Urine Protein (test code = 5804-0) 1+ NEGATIVE H [facility] Glucose (UA)2018-01-27 01:52:00* Test Item Value Reference Range Interpretation Comments Urine Glucose (UA) (test code = 2349-9) 3+ NEGATIVE H [facility] Upecmoa3490-55-29 01:52:00* Test Item Value Reference Range Interpretation Comments Urine Ketones (test code = 18670-1) 3+ NEGATIVE H [facility] Sgwljtgudkoq8641-68-91 01:52:00* Test Item Value Reference Range Interpretation Comments Urine Urobilinogen (test code = 38629-0) 0.2 0.2-1 [facility] Zopssbgxu9598-70-03 01:52:00* Test Item Value Reference Range Interpretation Comments Urine Bilirubin (test code = 1978-6) NEGATIVE NEGATIVE [facility] Eaavk3966-77-55 01:52:00* Test Item Value Reference Range Interpretation Comments Urine Blood (test code = 65296-0) 3+ NEGATIVE H [facility] Ysmrf7419-43-31 01:52:00* Test Item Value Reference Range Interpretation Comments Urine Color (test code = 5778-6) YELLOW YELLOW [facility] Aifjndp6119-18-08 01:52:00* Test Item Value Reference Range Interpretation Comments Urine Clarity (test code = 48589-0) HAZY CLEAR [facility] Specific Pgdchjl8631-29-84 01:52:00 * Test Item Value Reference Range Interpretation Comments Urine Specific [place] (test code = 5811-5) 1.020 1.010-1.02 5 [facility] [id number] 01:52:00* Test Item Value Reference Range Interpretation Comments Urine pH (test code = 80807-5) 6 5-7 [facility] Leukocyte Dcsrhqxx5376-05-31 01:52:00* Test Item Value Reference Range Interpretation Comments Urine Leukocyte Esterase (test code = 5799-2) 1+ NEGATIVE H [facility] Takmdbf6926-01-32 01:52:00* Test Item Value Reference Range Interpretation Comments Urine Nitrite (test code = 08394-5) NEGATIVE NEGATIVE [facility] Zlfkgjw1915-14-58 01:52:00* Test Item Value Reference Range Interpretation Comments Urine Protein (test code = 5804-0) 1+ NEGATIVE H [facility] Glucose (UA)2018-01-27 01:52:00* Test Item Value Reference Range Interpretation Comments Urine Glucose (UA) (test code = 2349-9) 3+ NEGATIVE H [facility] Tpzyvyl2484-59-55 01:52:00* Test Item Value Reference Range Interpretation Comments Urine Ketones (test code = 47692-3) 3+ NEGATIVE H [facility] Isnffvqbogph1072-31-30 01:52:00* Test Item Value Reference Range Interpretation Comments Urine Urobilinogen (test code = 18043-1) 0.2 0.2-1 [facility] Cfysvxwdj6151-89-41 01:52:00* Test Item Value Reference Range Interpretation Comments Urine Bilirubin (test code = 1978-6) NEGATIVE NEGATIVE [facility] Pahak6306-57-70 01:52:00* Test Item Value Reference Range Interpretation Comments Urine Blood (test code = 33255-1) 3+ NEGATIVE H [facility] Ffsfs5319-00-68 01:52:00* Test Item Value Reference Range Interpretation Comments Urine Color (test code = 5778-6) YELLOW YELLOW [facility] Pxzpbvn0722-47-05 01:52:00* Test Item Value Reference Range Interpretation Comments Urine Clarity (test code = 65630-0) HAZY CLEAR [facility] Specific Jyzaoyn8330-00-84 01:52:00 * Test Item Value Reference Range Interpretation Comments Urine Specific [place] (test code = 5811-5) 1.020 1.010-1.02 5 [facility] qH7545-69-69 01:52:00* Test Item Value Reference Range Interpretation Comments Urine pH (test code = 30802-7) 6 5-7 [facility] Leukocyte Iikwuwje5694-16-80 01:52:00* Test Item Value Reference Range Interpretation Comments Urine Leukocyte Esterase (test code = 5799-2) 1+ NEGATIVE H [facility] Jpmzspk3100-83-04 01:52:00* Test Item Value Reference Range Interpretation Comments Urine Nitrite (test code = 30461-9) NEGATIVE NEGATIVE [facility] Cxeafae6138-80-14 01:52:00* Test Item Value Reference Range Interpretation Comments Urine Protein (test code = 5804-0) 1+ NEGATIVE H [facility] Glucose (UA)2018-01-27 01:52:00* Test Item Value Reference Range Interpretation Comments Urine Glucose (UA) (test code = 2349-9) 3+ NEGATIVE H [facility] Ingfapo4435-03-37 01:52:00* Test Item Value Reference Range Interpretation Comments Urine Ketones (test code = 91601-0) 3+ NEGATIVE H [facility] Tzvxhkdwnjok3352-10-24 01:52:00* Test Item Value Reference Range Interpretation Comments Urine Urobilinogen (test code = 22172-9) 0.2 0.2-1 [facility] Vuscativx6284-02-07 01:52:00* Test Item Value Reference Range Interpretation Comments Urine Bilirubin (test code = 1978-6) NEGATIVE NEGATIVE [facility] Makfe5551-16-02 01:52:00* Test Item Value Reference Range Interpretation Comments Urine Blood (test code = 40074-8) 3+ NEGATIVE H [facility] Pgxak4671-62-41 01:52:00* Test Item Value Reference Range Interpretation Comments Urine Color (test code = 5778-6) YELLOW YELLOW [facility] Kblpkcx0982-89-94 01:52:00* Test Item Value Reference Range Interpretation Comments Urine Clarity (test code = 12815-5) HAZY CLEAR [facility] Specific Yjxuxqr2994-91-68 01:52:00 * Test Item Value Reference Range Interpretation Comments Urine Specific [place] (test code = 5811-5) 1.020 1.010-1.02 5 [facility] zI8048-74-13 01:52:00* Test Item Value Reference Range Interpretation Comments Urine pH (test code = 58934-3) 6 5-7 [facility] Leukocyte Dyqhzzqz9207-22-31 01:52:00* Test Item Value Reference Range Interpretation Comments Urine Leukocyte Esterase (test code = 5799-2) 1+ NEGATIVE H [facility] Uzeamnz4566-44-13 01:52:00* Test Item Value Reference Range Interpretation Comments Urine Nitrite (test code = 06270-2) NEGATIVE NEGATIVE [facility] Gakeqxe7149-10-55 01:52:00* Test Item Value Reference Range Interpretation Comments Urine Protein (test code = 5804-0) 1+ NEGATIVE H [facility] Glucose (UA)2018-01-27 01:52:00* Test Item Value Reference Range Interpretation Comments Urine Glucose (UA) (test code = 2349-9) 3+ NEGATIVE H [facility] Ezfeajm4741-02-30 01:52:00* Test Item Value Reference Range Interpretation Comments Urine Ketones (test code = 75730-2) 3+ NEGATIVE H [facility] Twralsjdqygl2144-44-08 01:52:00* Test Item Value Reference Range Interpretation Comments Urine Urobilinogen (test code = 71234-9) 0.2 0.2-1 [facility] Zcqkaioai2975-12-34 01:52:00* Test Item Value Reference Range Interpretation Comments Urine Bilirubin (test code = 1978-6) NEGATIVE NEGATIVE [facility] Mwxgg0148-66-28 01:52:00* Test Item Value Reference Range Interpretation Comments Urine Blood (test code = 48306-1) 3+ NEGATIVE H [facility]entonCreatine Kinase [id number] 20:15:00* Test Item Value Reference Range Interpretation Comments Creatine Kinase MB (test code = 16386-7) 0.60 0-5.0 [facility]entonTroponin L5680-98-78 20:15:00* Test Item Value Reference Range Interpretation Comments Troponin I (test code = ELI5740) 0.009 0-0.300 [facility]entonCreatine Kinase HJ0158-08-37 20:15:00* Test Item Value Reference Range Interpretation Comments Creatine Kinase MB (test code = 62637-0) 0.60 0-5.0 [facility]entonTroponin K5240-38-24 20:15:00* Test Item Value Reference Range Interpretation Comments Troponin I (test code = UVG1995) 0.009 0-0.300 [facility]entonCreatine Kinase [id number] 20:15:00* Test Item Value Reference Range Interpretation Comments Creatine Kinase MB (test code = 54845-5) 0.60 0-5.0 [place] 38805018-03-18 20:15:00* Test Item Value Reference Range Interpretation Comments Troponin I (test code = PTU6395) 0.009 0-0.300 [facility]Creat[facility] Kinase [id number] 20:15:00* Test Item Value Reference Range Interpretation Comments Creatine Kinase MB (test code = 97194-4) 0.60 0-5.0 [facility]entonTrHeather [place]ille 36976X1859-41-97 20:15:00* Test Item Value Reference Range Interpretation Comments Troponin I (test code = AHE6334) 0.009 0-0.300 [facility]entonCreat[facility] Kinase [id number] 20:15:00* Test Item Value Reference Range Interpretation Comments Creatine Kinase MB (test code = 41465-9) 0.60 0-5.0 [place] [id number] 20:15:00* Test Item Value Reference Range Interpretation Comments Troponin I (test code = GKB2673) 0.009 0-0.300 [facility]entonCreatine Rkhefk5740-92-21 20:11:00* Test Item Value Reference Range Interpretation Comments Creatine Kinase (test code = 2157-6) 37 30-200 [facility]entonAmylase Eddac4142-43-01 20:11:00* Test Item Value Reference Range Interpretation Comments Amylase Level (test code = 1798-8) 20 25-125 L [facility]entonLipase2018-03-18 20:11:00* Test Item Value Reference Range Interpretation Comments Lipase (test code = 3040-3) -4 8-78 L [facility]entonCreatine Rebkwl7179-79-27 20:11:00* Test Item Value Reference Range Interpretation Comments Creatine Kinase (test code = 2157-6) 37 30-200 [facility]entonAmylase Incve7882-05-12 20:11:00* Test Item Value Reference Range Interpretation Comments Amylase Level (test code = 1798-8) 20 25-125 L [facility]entonLipase2018-03-18 20:11:00* Test Item Value Reference Range Interpretation Comments Lipase (test code = 3040-3) -4 8-78 L [facility]entonCreatine Ebsdmd1895-33-97 20:11:00* Test Item Value Reference Range Interpretation Comments Creatine Kinase (test code = 2157-6) 37 30-200 [facility]entonAm[facility] Jsgkk9867-59-31 20:11:00* Test Item Value Reference Range Interpretation Comments Amylase Level (test code = 1798-8) 20 25-125 L [facility]entonLipase2018-03-18 20:11:00* Test Item Value Reference Range Interpretation Comments Lipase (test code = 3040-3) -4 8-78 L [facility]entonCreatine Vebhfw8924-79-99 20:11:00* Test Item Value Reference Range Interpretation Comments Creatine Kinase (test code = 2157-6) 37 30-200 [facility]entonAmylase Mcnkv0005-42-32 20:11:00* Test Item Value Reference Range Interpretation Comments Amylase Level (test code = 1798-8) 20 25-125 L [facility] [facility] 20:11:00* Test Item Value Reference Range Interpretation Comments Lipase (test code = 3040-3) -4 8-78 L [facility] Ejbxnz0092-72-16 20:11:00* Test Item Value Reference Range Interpretation Comments Creatine Kinase (test code = 2157-6) 37 30-200 [facility]Am[facility] Vxrre4653-15-11 20:11:00* Test Item Value Reference Range Interpretation Comments Amylase Level (test code = 1798-8) 20 25-125 L [facility]2018-03-18 20:11:00* Test Item Value Reference Range Interpretation Comments Lipase (test code = 3040-3) -4 8-78 L [facility]Blood Ycoeizc4705-02-49 22:19:00* Test Item Value Reference Range Interpretation Comments Blood Culture (test code = 04601504) NO GROWTH AFTER 5 DAYS, FINAL REPORT [facility]2018-01-03 22:19:00* Test Item Value Reference Range Interpretation Comments Blood Culture (test code = 56963190) NO GROWTH AFTER 5 DAYS, FINAL REPORT [facility]2018-01-03 22:19:00* Test Item Value Reference Range Interpretation Comments Blood Culture (test code = 58633358) NO GROWTH AFTER 5 DAYS, FINAL REPORT [facility]2018-01-03 22:19:00* Test Item Value Reference Range Interpretation Comments Blood Culture (test code = 71942267) NO GROWTH AFTER 5 DAYS, FINAL REPORT [facility]2018-01-03 22:19:00* Test Item Value Reference Range Interpretation Comments Blood Culture (test code = 00732280) NO GROWTH AFTER 5 DAYS, FINAL REPORT [facility] Nyalqoxe1169-88-36 10:18:00* Test Item Value Reference Range Interpretation Comments Platelet Estimate (test code = 50332-6) ADEQUATE [facility] Morphology Yssavxk4799-64-56 10:18:00* Test Item Value Reference Range Interpretation Comments Platelet Morphology Comment (test code = 67230-6) NORMAL [facility]is[facility]2018-01-01 10:18:00* Test Item Value Reference Range Interpretation Comments Anisocytosis (test code = 702-1) SLIGHT [facility]Microcytosis2018-01-01 10:18:00* Test Item Value Reference Range Interpretation Comments Microcytosis (test code = 741-9) X [facility] Cell Morphology Lqkwadc1420-05-50 10:18:00* Test Item Value Reference Range Interpretation Comments Red Cell Morphology Comment (test code = 6742-1) NORMAL [facility]entonPl[facility]let Wptnjwwu2946-59-56 10:18:00* Test Item Value Reference Range Interpretation Comments Platelet Estimate (test code = 21685-7) ADEQUATE [facility] Morphology Vzcgjqc7647-08-83 10:18:00* Test Item Value Reference Range Interpretation Comments Platelet Morphology Comment (test code = 95863-7) NORMAL [facility]Anisocytosis2018-01-01 10:18:00* Test Item Value Reference Range Interpretation Comments Anisocytosis (test code = 702-1) SLIGHT [facility]cytosis2018-01-01 10:18:00* Test Item Value Reference Range Interpretation Comments Microcytosis (test code = 741-9) X [facility]enton[facility] Cell Morphology Wkilayi8495-94-19 10:18:00* Test Item Value Reference Range Interpretation Comments Red Cell Morphology Comment (test code = 6742-1) NORMAL [facility]entonPl[facility] Acfswofp2781-93-56 10:18:00* Test Item Value Reference Range Interpretation Comments Platelet Estimate (test code = 56071-2) ADEQUATE [facility]entonPl[facility]let Morphology Lpfhvrn1692-26-21 10:18:00* Test Item Value Reference Range Interpretation Comments Platelet Morphology Comment (test code = 60904-5) NORMAL [facility]An[facility]ocytosis2018-01-01 10:18:00* Test Item Value Reference Range Interpretation Comments Anisocytosis (test code = 702-1) SLIGHT [facility]cytosis2018-01-01 10:18:00* Test Item Value Reference Range Interpretation Comments Microcytosis (test code = 741-9) X [facility]enton[facility] Cell Morphology Qksuiru8783-94-68 10:18:00* Test Item Value Reference Range Interpretation Comments Red Cell Morphology Comment (test code = 6742-1) NORMAL [facility] Bqgnnimf6204-62-71 10:18:00* Test Item Value Reference Range Interpretation Comments Platelet Estimate (test code = 78944-3) ADEQUATE [facility] Morphology Ufqgyqb8387-57-54 10:18:00* Test Item Value Reference Range Interpretation Comments Platelet Morphology Comment (test code = 21306-0) [facility] Test Item Value Reference Range Interpretation Comments Anisocytosis (test code = 702-1) SLIGHT [facility]cytosis2018-01-01 10:18:00* Test Item Value Reference Range Interpretation Comments Microcytosis (test code = 741-9) X [facility]Red [facility] Morphology Fihzhik0748-78-78 10:18:00* Test Item Value Reference Range Interpretation Comments Red Cell Morphology Comment (test code = 6742-1) NORMAL [facility]Anisocytosis2018-01-01 10:18:00* Test Item Value Reference Range Interpretation Comments Anisocytosis (test code = 702-1) SLIGHT [facility]Microcytosis2018-01-01 10:18:00* Test Item Value Reference Range Interpretation Comments Microcytosis (test code = 741-9) X [facility]entonAr[facility]ial Blood [id number] 22:27:00* Test Item Value Reference Range Interpretation Comments Arterial Blood pH (test code = 2744-1) 7.01 7.31-7.41 LL Results called to MD JACOB at 2221 on 11/08/17 by Huan Champion. RB OK.[facility]Ar[facility] Blood Partial Pressure [id number] 22:27:00* Test Item Value Reference Range Interpretation Comments Arterial Blood Partial Pressure CO2 (test code = 2018-8) 11 41-51 L [facility]Ar[facility] Blood Partial Pressure O2 2017-11-08 22:27:00* Test Item Value Reference Range Interpretation Comments Arterial Blood Partial Pressure O2 (test code = 2018-) 138 80-105 H [facility] Blood UZO33047-91-68 22:27:00* Test Item Value Reference Range Interpretation Comments Arterial Blood HCO3 (test code = 1960-4) 3 23-28 L [facility]Ar[facility] Blood Base Eucwsb6155-65-98 22:27:00* Test Item Value Reference Range Interpretation Comments Arterial Blood Base Excess (test code = 1925-7) -28.0 -2-3 L [facility] Blood Oxygen Saturation 2017-11-08 22:27:00* Test Item Value Reference Range Interpretation Comments Arterial Blood Oxygen Saturation (test code = 2708-6) 97.0 95-98 [facility] Blood [id number] 22:27:00* Test Item Value Reference Range Interpretation Comments Arterial Blood pH (test code = 2744-1) 7.01 7.31-7.41 LL Results called to MD JACOB at 2221 on 11/08/17 by Huan Champion. RB OK.[facility] Partial Pressure [id number] 22:27:00* Test Item Value Reference Range Interpretation Comments Arterial Blood Partial Pressure CO2 (test code = 2019-06) 11 41-51 L [facility] Blood Partial Pressure O2 2017-11-08 22:27:00* Test Item Value Reference Range Interpretation Comments Arterial Blood Partial Pressure O2 (test code = 2019-06) 138 80-105 H [facility] Blood ODK02627-75-34 22:27:00* Test Item Value Reference Range Interpretation Comments Arterial Blood HCO3 (test code = 1960-4) 3 23-28 L [facility] Blood Base Spasjg1198-44-71 22:27:00* Test Item Value Reference Range Interpretation Comments Arterial Blood Base Excess (test code = 1925-7) -28.0 -2-3 L [facility] Blood Oxygen Saturation 2017-11-08 22:27:00* Test Item Value Reference Range Interpretation Comments Arterial Blood Oxygen Saturation (test code = 2708-6) 97.0 95-98 [facility] Blood [id number] 22:27:00* Test Item Value Reference Range Interpretation Comments Arterial Blood pH (test code = 2744-1) 7.01 7.31-7.41 LL Results called to MD JACOB at 2221 on 11/08/17 by Huan Champion. RB OK.[facility] Partial Pressure [id number] 22:27:00* Test Item Value Reference Range Interpretation Comments Arterial Blood Partial Pressure CO2 (test code = 2019-06) 11 41-51 L [facility] Partial Pressure O2 2017-11-08 22:27:00* Test Item Value Reference Range Interpretation Comments Arterial Blood Partial Pressure O2 (test code = 2019-06) 138 80-105 H [facility] Blood [id number] 22:27:00* Test Item Value Reference Range Interpretation Comments Arterial Blood HCO3 (test code = 1960-4) 3 23-28 L [facility] Blood Base Kzancw1036-24-57 22:27:00* Test Item Value Reference Range Interpretation Comments Arterial Blood Base Excess (test code = 1925-7) -28.0 -2-3 L [facility] Blood Oxygen Saturation 2017-11-08 22:27:00* Test Item Value Reference Range Interpretation Comments Arterial Blood Oxygen Saturation (test code = 2708-6) 97.0 95-98 [facility] Blood [id number] 22:27:00* Test Item Value Reference Range Interpretation Comments Arterial Blood pH (test code = 2744-1) 7.01 7.31-7.41 LL Results called to MD JACOB at 2221 on 11/08/17 by Huan Champion. RB OK.[facility] Partial Pressure [id number] 22:27:00* Test Item Value Reference Range Interpretation Comments Arterial Blood Partial Pressure CO2 (test code = 2019-06) 11 41-51 L [facility] Partial Pressure O2 2017-11-08 22:27:00* Test Item Value Reference Range Interpretation Comments Arterial Blood Partial Pressure O2 (test code = 2019-06) 138 80-105 H [facility]Ar[facility] Blood [id number] 22:27:00* Test Item Value Reference Range Interpretation Comments Arterial Blood HCO3 (test code = 1960-4) 3 23-28 L [facility] Blood Base Mpjxte3603-11-01 22:27:00* Test Item Value Reference Range Interpretation Comments Arterial Blood Base Excess (test code = 1925-7) -28.0 -2-3 L [facility] Blood Oxygen Saturation 2017-11-08 22:27:00* Test Item Value Reference Range Interpretation Comments Arterial Blood Oxygen Saturation (test code = 2708-6) 97.0 95-98 [facility] Blood [id number] 22:27:00* Test Item Value Reference Range Interpretation Comments Arterial Blood pH (test code = 2744-1) 7.01 7.31-7.41 LL Results called to MD JACOB at 2221 on 11/08/17 by Huan Champion. RB OK.[facility] Partial Pressure [id number] 22:27:00* Test Item Value Reference Range Interpretation Comments Arterial Blood Partial Pressure CO2 (test code = 2018-) 11 41-51 L [facility] Partial Pressure O2 2017-11-08 22:27:00* Test Item Value Reference Range Interpretation Comments Arterial Blood Partial Pressure O2 (test code = 2019-06) 138 80-105 H [facility]Ar[facility] Blood [id number] 22:27:00* Test Item Value Reference Range Interpretation Comments Arterial Blood HCO3 (test code = 1960-4) 3 23-28 L [facility] Blood Base Kdtiim7751-30-82 22:27:00* Test Item Value Reference Range Interpretation Comments Arterial Blood Base Excess (test code = 1925-7) -28.0 -2-3 L [facility] Oxygen Saturation 2017-11-08 22:27:00* Test Item Value Reference Range Interpretation Comments Arterial Blood Oxygen Saturation (test code = 2708-6) 97.0 95-98 [facility]entonA[facility] bacterial blood xlbhaqa7114-00-80 12:23:00Comment Bed:4 Only Aerobic Pediatric Blood Culture Bottle ReceivedNo growth in 5 days.^No growth in 5 days.^LBlood anaerobic ryqqmpm5974-75-74 12:23:00Comment Bed:4 Only Aerobic Pediatric Blood Culture Bottle ReceivedNot Done^Not Done^L^NDPotassium felncbzfnok6034-13-62 21:27:00* Test Item Value Reference Range Interpretation Comments Potassium measurement (test code = OPI3230) 3.6 meq/L 3.6-5.0 Primary Language EnglishGlucose blood iasbmsmzwyx0086-31-78 20:54:00* Test Item Value Reference Range Interpretation Comments Glucose blood fingerstick (test code = ALP1878) 174 mg/dL 65-120 H Potassium xmiuhaslpke6319-55-91 18:55:00* Test Item Value Reference Range Interpretation Comments Potassium measurement (test code = RFE0645) 2.8 meq/L 3.6-5.0 LL Repeated, Pt history, Broadcast at 1855 by [employer] Primary Language EnglishGlucose blood yynabjpubft7016-90-77 16:12:00* Test Item Value Reference Range Interpretation Comments Glucose blood fingerstick (test code = ZFJ4389) 184 mg/dL 65-120 H Glucose blood ewrqetxfcys9770-40-60 12:15:00* Test Item Value Reference Range Interpretation Comments Glucose blood fingerstick (test code = WYB6715) 191 mg/dL 65-120 H Glucose blood jnhnreaffcd0381-92-66 12:15:00* Test Item Value Reference Range Interpretation Comments Glucose blood fingerstick (test code = NXM2814) 232 mg/dL 65-120 H Glucose blood hdwjolqlvcw3652-76-84 08:04:00* Test Item Value Reference Range Interpretation Comments Glucose blood fingerstick (test code = EYY9187) 94 mg/dL 65-120 Glucose blood rzugzkbmvzu4288-04-56 08:04:00* Test Item Value Reference Range Interpretation Comments Glucose blood fingerstick (test code = HFH5310) 60 mg/dL 65-120 L Potassium cbcubsavuqz0002-02-03 07:24:00* Test Item Value Reference Range Interpretation Comments Potassium measurement (test code = ENG1484) 2.6 meq/L 3.6-5.0 LL Repeated, Pt history, Broadcast at 0724 by [facility] Primary Language EnglishComplete blood count (CBC) with automated white blood cell (WBC) slzctrqpgqgr3571-60-47 04:42:00* Test Item Value Reference Range Interpretation Comments White blood cell count (test code = QOM8842) 5.8 4.3-10.9 Blood erythrocytes count (number/volume) (test code = 16297- 1) 4.62 M/ul 4.33-5.43 Hemoglobin measurement (test code = HZZ0067) 15.1 g/dL 13.6-17.9 Blood hematocrit (volume fraction) (test code = 75608-2) 41.9 % 39.6-49.0 MCV (test code = 00749-0) 90.6 fL 80-100 MCH (test code = 23867-3) 32.7 pg 27.0-35.0 MCHC (test code = MCHC) 36.1 g/dL 32.0-36.0 H Platelets (test code = PLT) 191 152-406 Red Cell Distribution Width (test code = RDW) 13.1 % 12.1-15. 2 Blood platelet mean volume (test code = 03351-9) 7.6 fL 7.6-1 1.3 Neutrophils % (test code = SID%) 49.5 % 41.7-73.7 Lymphocytes/leuk NFr Bld (test code = 20711-2) 35.3 % 15.3-44 .8 Monocyte percentage (test code = 5905-5) 14.4 % 3.3-12.3 H Eosinophil % (test code = 713-8) 0.2 % 0-4.4 Basophil % (test code = 05735-1) 0.6 % 0-1.3 Absolute neutrophil count (test code = 751-8) 2.9 1.8-8.0 Absolute lymphocyte count (test code = 54639-2) 2.1 0.7-4. 9 Absolute monocyte count (test code = 742-7) 0.8 0.1-1.3 Absolute Eosinophils (test code = EOA) 0.0 0-0.5 Absolute Basophils (test code = BASA) 0.0 0-0.5 [facility] Nzioa6119-88-31 04:33:00* Test Item Value Reference Range Interpretation Comments Sodium level (test code = MEQ0660) 132 meq/L 135-145 L 2.6Repeated & Called to ISA FRANCOIS RN on 06/20/17 at 0432 by SYDNEE Was there 100% Readback? Y Chloride measurement (test code = CJO8255) 91 meq/L 101-111 L Bicarbonate (test code = CO2) 33 meq/L 21-31 H Glucose measurement (test code = SNE0434) 64 mg/dL 65-120 L ADA Clinical Practice Recommendation: <100 mg/dl = Normal Fasting Glucose BUN Bld-mCnc (test code = 6299-2) 5 mg/dL 6-20 L Creatinine measurement (test code = MWM7977) 0.41 mg/dL 0.61-1.24 L The creatinine method used has been calibrated to be traceable to Isotope dilution Mass Spectrometry (IDMS). For more information: www.nkdep.nih.gov Estimated glomerular filtration rate (GFR) determinati on (test code = 82157-0) >90 mL =/>90 FOR CHRONIC KIDNEY D [...] CA) 8.1 mg/dL 8.5-10.5 L Primary Language Malian Primary Language EnglishMagnesium nnyicokzvkm6079-40-72 04:33:00* Test Item Value Reference Range Interpretation Comments Magnesium measurement (test code = 88159-2) 1.9 mg/dL 1.8-2.5 Primary Language Malian Primary Language EnglishPotassium tabothkhwko4786-53-06 22:08:00* Test Item Value Reference Range Interpretation Comments Potassium measurement (test code = ZNE4476) 2.8 meq/L 3.6-5.0 LL Repeated & Called to ISA FRANCOIS RN on 06/19/17 at 2208 by REBECCA Was there 100% Readback? Y Primary Language EnglishGlucose blood tjlhufsfgow8951-21-43 20:02:00* Test Item Value Reference Range Interpretation Comments Glucose blood fingerstick (test code = LZJ4547) 255 mg/dL 65-120 H Glucose blood scikhfaemmu6648-91-63 19:03:00* Test Item Value Reference Range Interpretation Comments Glucose blood fingerstick (test code = HVE0951) 297 mg/dL 65-120 H Basic Metabolic Mwmld6409-75-19 13:07:00* Test Item Value Reference Range Interpretation Comments Sodium level (test code = QEM0593) 126 meq/L 135-145 L 3.3 Chloride measurement (test code = ROV1055) 92 meq/L 101-111 L Bicarbonate (test code = CO2) 21 meq/L 21-31 Glucose measurement (test code = DOZ1810) 311 mg/dL 65-120 H ADA Clinical Practice Recommendation: <100 mg/dl = Normal Fasting Glucose BUN Bld-mCnc (test code = 6299-2) 9 mg/dL 6-20 Creatinine measurement (test code = RVJ2954) 0.60 mg/dL 0.61-1.24 L The creatinine method used has been calibrated to be traceable to Isotope dilution Mass Spectrometry (IDMS). For more information: www.nkdep.nih.gov Estimated glomerular filtration rate (GFR) determinati on (test code = 60425-4) >90 mL =/>90 FOR CHRONIC KIDNEY D [...] mg/dL 8.5-10.5 L Primary Language EnglishGlucose blood kjpbxyvligu9455-93-37 11:57:00* Test Item Value Reference Range Interpretation Comments Glucose blood fingerstick (test code = JKI7471) 265 mg/dL 65-120 H Glucose blood fjbxlbhdfdq9775-15-44 11:57:00* Test Item Value Reference Range Interpretation Comments Glucose blood fingerstick (test code = YWK9540) 142 mg/dL 65-120 H Hemoglobin A1c nvtxwwyqvql6894-36-67 09:13:00* Test Item Value Reference Range Interpretation Comments Hemoglobin A1c measurement (test code = 69603-5) 12.1 % 4-6.0 H Primary Language EnglishLipid jsaramj8368-92-93 06:06:00* Test Item Value Reference Range Interpretation Comments Cholesterol measurement (test code = RBQ1184) 185 mg/dL <200 51 HDL Cholesterol (test code = HDL) 38 mg/dL 27-67 Serum or plasma cholesterol in LDL measu rement by calculation (mass/volume) (test code = 35611-6) 137 <130 H This LDL i s a calculated result; a more accurate analysis can be performed using the direct LDL methodology. Total cholesterol/cholesterol in HDL (percentile) (test code = 9322 -9) 4.87 LIPID RISK RATIOS: 1/2 AVERAGE AVERAGE 2X AVERAGE 3X AVERAGE ------- MALE 3.43 4.97 9.55 23.39 FEMALE 3.27 4.44 7.05 11.04 Primary Language EnglishAcetone Tfuad1443-11-52 06:06:00* Test Item Value Reference Range Interpretation Comments Acetone Level (test code = ACET) SMALL NEG AA Primary Language EnglishMagnesium qcfravqndwh9339-68-43 06:06:00* Test Item Value Reference Range Interpretation Comments Magnesium measurement (test code = 00132-1) 2.0 mg/dL 1.8-2.5 Primary Language EnglishThyroid Stimulating Hmpszju5343-52-11 06:06:00* Test Item Value Reference Range Interpretation Comments Thyroid Stimulating Hormone (test code = TSH) 1.11 [iU]/L 0.34-5.6 0 Primary Language EnglishArterial blood gas lkkckxdmeup9337-70-53 05:35:00* Test Item Value Reference Range Interpretation Comments Blood gas pH assay (test code = 25378-2) 7.43 7.35-7.45 +ID,;RBA STICK;21% FIO2@Other : Repeated & Called to TRACEY MONROE on 06/19/17 at 0535 by DE Was there 100% Readback? Y Blood partial pressure of carbon dioxide measurement ( test code = 84670-0) 29.8 mm[Hg] 35-45 L Blood partial pressure [...] White blood cell count (test code = OSE9185) 7.7 4.3-10.9 Blood erythrocytes count (number/volume) (test code = 24952- 1) 4.74 M/ul 4.33-5.43 Hemoglobin measurement (test code = CLN8358) 15.7 g/dL 13.6-17.9 Blood hematocrit (volume fraction) (test code = 14504-1) 43.7 % 39.6-49.0 MCV (test code = 72559-7) 92.2 fL 80-100 MCH (test code = 78736-9) 33.1 pg 27.0-35.0 MCHC (test code = MCHC) 35.9 g/dL 32.0-36.0 Platelets (test code = PLT) 227 152-406 Red Cell Distribution Width (test code = RDW) 12.9 % 12.1-15. 2 Blood platelet mean volume (test code = 11606-9) 7.7 fL 7.6-1 1.3 Neutrophils % (test code = SID%) 62.1 % 41.7-73.7 Lymphocytes/leuk NFr Bld (test code = 66568-7) 24.1 % 15.3-44 .8 Monocyte percentage (test code = 5905-5) 13.2 % 3.3-12.3 H Eosinophil % (test code = 713-8) 0.2 % 0-4.4 Basophil % (test code = 84747-8) 0.4 % 0-1.3 Absolute neutrophil count (test code = 751-8) 4.8 1.8-8.0 Absolute lymphocyte count (test code = 19220-5) 1.8 0.7-4. 9 Absolute monocyte count (test code = 742-7) 1.0 0.1-1.3 Absolute Eosinophils (test code = EOA) 0.0 0-0.5 Absolute Basophils (test code = BASA) 0.0 0-0.5 Primary Language [facility] Metabolic Ndwzm2440-37-93 02:50:00* Test Item Value Reference Range Interpretation Comments Sodium level (test code = HOC9102) 127 meq/L 135-145 L 2.5Repeated & Called to WU ALANIS RN on 06/19/17 at 0250 by [facility] Was there 100% Readback? Y Chloride measurement (test code = NGF4351) 98 meq/L 101-111 L Bicarbonate (test code = CO2) 20 meq/L 21-31 L Glucose measurement (test code = CQH0399) 158 mg/dL 65-120 H ADA Clinical Practice Recommendation: <100 mg/dl = Normal Fasting Glucose BUN Bld-mCnc (test code = 6299-2) 12 mg/dL 6-20 Creatinine measurement (test code = NAI9178) 0.75 mg/dL 0.61-1.24 The creatinine method used has been calibrated to be traceable to Isotope dilution Mass Spectrometry (IDMS). For more information: www.nkdep.nih.gov Estimated glomerular filtration rate (GFR) determinati on (test code = 95916-8) >90 mL =/>90 FOR CHRONIC KIDNEY D [...] mg/dL 8.5-10.5 L Primary Language EnglishUrine drug lbjgnm7358-92-41 21:35:00* Test Item Value Reference Range Interpretation Comments Phencyclidine, Urine (test code = PCP) NEGATIVE Benzodiazepines (test code = BZO) NEGATIVE Urine cocaine detection by screening method (test code = 99685-8) N egative Amphetamines,Urine (test code = AMP) NEGATIVE Urine wghwv-3-iqvydsdvmseddpqxkrgm (THC) measurement ( test code = DXO6351) NEGATIVE Urine opiates detection (test code = 3879-4) Negative Barbiturates (test code = BAR) NEGATIVE Oxycodone, Urine (test code = OXY) NEGATIVE Urine methylenedioxymethamphetamine (MDMA) detection ( test code = 57940-4) Negative This urine was quali tatively tested [...] (e.g. employment testing, legal testing). Basic Metabolic Eyhky4762-61-71 21:25:00* Test Item Value Reference Range Interpretation Comments Sodium level (test code = JMS5839) 129 meq/L 135-145 L 2.9Repeated, Pt history, Broadcast at 2124 by [place] Chloride measurement (test code = FFA4681) 100 meq/L 101-111 L Bicarbonate (test code = CO2) 16 meq/L 21-31 L Glucose measurement (test code = DIN1802) 202 mg/dL 65-120 H ADA Clinical Practice Recommendation: <100 mg/dl = Normal Fasting Glucose BUN Bld-mCnc (test code = 6299-2) 12 mg/dL 6-20 Creatinine measurement (test code = CTN2758) 0.66 mg/dL 0.61-1.24 The creatinine method used has been calibrated to be traceable to Isotope dilution Mass Spectrometry (IDMS). For more information: www.nkdep.nih.gov Estimated glomerular filtration rate (GFR) determinati on (test code = 13726-1) >90 mL =/>90 FOR CHRONIC KIDNEY D [...] mg/dL 8.5-10.5 L Primary Language EnglishGlucose blood wxwohyapclr2670-34-15 19:54:00* Test Item Value Reference Range Interpretation Comments Glucose blood fingerstick (test code = FJE0039) 184 mg/dL 65-120 H Glucose blood wqlqzvfcuyl6748-69-53 17:43:00* Test Item Value Reference Range Interpretation Comments Glucose blood fingerstick (test code = BZW5548) 129 mg/dL 65-120 H Glucose blood kivnjsawmhr5074-25-11 17:43:00* Test Item Value Reference Range Interpretation Comments Glucose blood fingerstick (test code = BTU7323) 236 mg/dL 65-120 H Basic Metabolic Pmhay2364-21-38 16:52:00* Test Item Value Reference Range Interpretation Comments Sodium level (test code = EMN1483) 129 meq/L 135-145 L 2.7Repeated & Called to PATRICIA MUHAMMAD RN on 06/18/17 at 1652 by REBECCA Was there 100% Readback? Y Chloride measurement (test code = RVK9296) 101 meq/L 101-111 Bicarbonate (test code = CO2) 17 meq/L 21-31 L Glucose measurement (test code = EKH5305) 201 mg/dL 65-120 H ADA Clinical Practice Recommendation: <100 mg/dl = Normal Fasting Glucose BUN Bld-mCnc (test code = 6299-2) 11 mg/dL 6-20 Creatinine measurement (test code = TUZ6009) 0.70 mg/dL 0.61-1.24 The creatinine method used has been calibrated to be traceable to Isotope dilution Mass Spectrometry (IDMS). For more information: www.nkdep.nih.gov Estimated glomerular filtration rate (GFR) determinati on (test code = 51239-6) >90 mL =/>90 FOR CHRONIC KIDNEY D [...] mg/dL 8.5-10.5 L Primary Language EnglishGlucose blood sytvisihgiz0479-07-14 15:20:00* Test Item Value Reference Range Interpretation Comments Glucose blood fingerstick (test code = GLS1349) 208 mg/dL 65-120 H Glucose blood qtonslnwpms4161-36-65 14:12:00* Test Item Value Reference Range Interpretation Comments Glucose blood fingerstick (test code = CMC4897) 199 mg/dL 65-120 H Glucose blood xdcbmzdbtyk8768-90-87 14:03:00* Test Item Value Reference Range Interpretation Comments Glucose blood fingerstick (test code = XXW3720) 250 mg/dL 65-120 H Glucose blood vyzxiqwugdh0121-38-40 14:02:00* Test Item Value Reference Range Interpretation Comments Glucose blood fingerstick (test code = AJG2829) 241 mg/dL 65-120 H Glucose blood ajjlhxapvcg2131-21-43 14:02:00* Test Item Value Reference Range Interpretation Comments Glucose blood fingerstick (test code = PTW1703) 224 mg/dL 65-120 H Urine dipstick testing at bkquv-yk-ksmm9313-08-08 13:41:00* Test Item Value Reference Range Interpretation Comments Urine specific gravity measurement (test code = 2965-2) 1.010 1.005-1.030 Urine glucose detection (test code = 2349-9) 1+ NEG Urine Ketones (test code = UKET) 3+ NEG AA Urine blood detection (test code = 59387-6) Negative NEG Urine pH (test code = 2756-5) 6.0 5.0-7.0 Urinalysis with microscopy (test code = 48235-9) 1+ NEG AA Urine nitrate measurement (test code = 52545-1) NEGATIVE NEG Urine Leukocyte Esterase (test code = UESTR) NEGATIVE NEG Comment Bed:4 AMILCAR NEG 1+ 3+ NEG NEG 6.0 1+ Y 1.010Basic Metabolic Kkyjv4025-01-42 13:00:00* Test Item Value Reference Range Interpretation Comments Sodium level (test code = PNI9148) 126 meq/L 135-145 L 3.3 Chloride measurement (test code = SCW1828) 100 meq/L 101-111 L Bicarbonate (test code = CO2) 11 meq/L 21-31 LL Repeated, Pt history, Broadcast at 1300 by [facility] Glucose measurement (test code = ADW0495) 269 mg/dL 65-120 H ADA Clinical Practice Recommendation: <100 mg/dl = Normal Fasting Glucose BUN Bld-mCnc (test code = 6299-2) 12 mg/dL 6-20 Creatinine measurement (test code = HNC1406) 0.81 mg/dL 0.61-1.24 The creatinine method used has been calibrated to be traceable to Isotope dilution Mass Spectrometry (IDMS). For more information: www.nkdep.nih.gov Estimated glomerular filtration rate (GFR) determinati on (test code = 39037-8) >90 mL =/>90 FOR CHRONIC KIDNEY D [...] = CA) 8.5 mg/dL 8.5-10.5 Comment Bed:4Acetone Mbwst2996-46-53 12:57:00* Test Item Value Reference Range Interpretation Comments Acetone Level (test code = ACET) MODERATE NEG AA Comment Bed:4Lactic acid xruqzfrocfz5085-03-55 12:45:00* Test Item Value Reference Range Interpretation Comments Lactic acid measurement (test code = MYG7395) 16.4 mg/dL 4.5-19.8 Arterial blood gas ahvuupacohk6600-25-72 12:01:00* Test Item Value Reference Range Interpretation Comments Blood gas pH assay (test code = 38214-2) 7.26 7.35-7.45 L POSITIVE ID//ALLENS TEST; FIO2 21%; RIGHT RADIAL STICK.@Other Dr: Repeated & Called to [facility] on 06/18/17 at 1200 by KARELY Was there 100% Readback? Blood partial pressure of carbon dioxide measurement ( test code = 00328-9) 24.4 mm[Hg] 35-45 L Blood partial pressure [...] = ABGFIO2) 21.0 % Comment Bed:4Basic Metabolic Kaaol3915-62-41 11:39:00* Test Item Value Reference Range Interpretation Comments Sodium level (test code = QOU3572) 124 meq/L 135-145 L 3.2 Chloride measurement (test code = SJK5682) 95 meq/L 101-111 L Bicarbonate (test code = CO2) 10 meq/L 21-31 LL Repeated & Called to ANA BAILEY RN on 06/18/17 at 1139 by [facility] Was there 100% Readback? YES Glucose measurement (test code = ITF3445) 310 mg/dL 65-120 H ADA Clinical Practice Recommendation: <100 mg/dl = Normal Fasting Glucose BUN Bld-mCnc (test code = 6299-2) 13 mg/dL 6-20 Creatinine measurement (test code = WMX4218) 0.89 mg/dL 0.61-1.24 The creatinine method used has been calibrated to be traceable to Isotope dilution Mass Spectrometry (IDMS). For more information: www.nkdep.nih.gov Estimated glomerular filtration rate (GFR) determinati on (test code = 84933-6) >90 mL =/>90 FOR CHRONIC KIDNEY D [...] 8.5-10.5 HEMOLYZED Specimen, recollect request called to [employer] on 06/18/17 at 1011 by [facility] label to LERLiver (Hepatic) Dnmoktig8409-62-27 11:39:00* Test Item Value Reference Range Interpretation Comments Aspartate aminotransferase (AST) measurement (test code = IM O0002) 16 [iU]/L 10-42 ALT/SGPT (test code = SGPT) 13 [iU]/L 10-60 Alkaline Phosphatase (test code = ALK) 183 [iU]/L 42-121 H Bilirubin total (test code = AMG0889) 1.2 mg/dL 0.3-1.2 Bilirubin direct (test code = 1968-7) 0.1 mg/dL 0-0.2 Serum total protein measurement (test code = 2885-2) 8.2 g/dL 6 .0-8.3 Albumin measurement (test code = NEP5264) 4.5 g/dL 3.2-5.5 Globulin (test code = GLOB) 3.7 g/dL 2.3-3.5 H Albumin/Globulin Ratio (test code = A/G) 1.2 1.1-1.8 HEMOLYZED Specimen, recollect request called to [employer] on 06/18/17 at 1011 by [employer] Print label to LERCreatine Ogbxaqxqfbdct0304-32-55 11:39:00* Test Item Value Reference Range Interpretation Comments Creatine Phosphokinase (test code = CPK) 40 [iU]/L 22-269 HEMOLYZED Specimen, recollect request called to ANA on 06/18/17 at 1011 by [employer] Print label to LERCKMB Creatine Kinase [id number] 11:39:00* Test Item Value Reference Range Interpretation Comments CKMB Creatine Kinase MB (test code = CKMB) 1.2 ng/mL 0.3-4.0 HEMOLYZED Specimen, recollect request called to ANA on 06/18/17 at 1011 by [employer] Print label to LERMagnesium vvmgiidvvcl6174-46-07 11:39:00* Test Item Value Reference Range Interpretation Comments Magnesium measurement (test code = 43116-0) 2.1 mg/dL 1.8-2.5 HEMOLYZED Specimen, recollect request called to AAN on 06/18/17 at 1011 by [employer] Print label to LERBrain natriuretic peptide (BNP) [...] Blood by Coagulation assay (test code = 56982-3) 0.88 Monitor pts using INR value (not prothrombin time) INR Coumadin Therapy: Low Range (prophylaxis) 2.0-3.0 High Range (high risk of clot formation) 2.5-3.5 Test Ordered to Rule Out VTE/DVT? N Test Ordered to Rule Out VTE/DVT? NPTT, Activated Partial Zxwpbx3049-76-86 10:11:00* Test Item Value Reference Range Interpretation Comments PTT, Activated Partial Thromb (test code = PTT) 25.6 s 24.3-3 6.9 Test Ordered to Rule Out VTE/DVT? N Test Ordered to Rule Out VTE/DVT? NComplete blood count (CBC) with automated white blood cell (WBC) yepsokemdvta4250-16-44 10:06:00* Test Item Value Reference Range Interpretation Comments White blood cell count (test code = ZMR8891) 13.0 4.3-10.9 H Blood erythrocytes count (number/volume) (test code = 62314- 1) 5.81 M/ul 4.33-5.43 H Hemoglobin measurement (test code = XQP2645) 19.2 g/dL 13.6-17.9 H Blood hematocrit (volume fraction) (test code = 07900-4) 55.3 % 39.6-49.0 H MCV (test code = 76530-7) 95.3 fL 80-100 MCH (test code = 79279-3) 33.1 pg 27.0-35.0 MCHC (test code = MCHC) 34.7 g/dL 32.0-36.0 Platelets (test code = PLT) 279 152-406 Red Cell Distribution Width (test code = RDW) 13.4 % 12.1-15. 2 Blood platelet mean volume (test code = 09711-3) 8.5 fL 7.6-1 1.3 Neutrophils % (test code = SID%) 83.6 % 41.7-73.7 H Lymphocytes/leuk NFr Bld (test code = 14236-7) 9.9 % 15.3-44 .8 L Monocyte percentage (test code = 5905-5) 5.9 % 3.3-12.3 Eosinophil % (test code = 713-8) 0.0 % 0-4.4 Basophil % (test code = 69289-9) 0.6 % 0-1.3 Absolute neutrophil count (test code = 751-8) 10.9 1.8-8.0 H Absolute lymphocyte count (test code = 91030-7) 1.3 0.7-4. 9 Absolute monocyte count (test code = 742-7) 0.8 0.1-1.3 Absolute Eosinophils (test code = EOA) 0.0 0-0.5 Absolute Basophils (test code = BASA) 0.1 0-0.5 CHEST SINGLE (PORTABLE) [facility] [address] [place], [place] [address] Patient Name: KEVIN LOMELI MR #: [id number] : 1995 Age/Sex: 22/M Req #: [id number] Adm Physician: Ordered by: SAMUEL ARIAS MD Report #: [id number] Location: ER Room/Bed: Procedure: [id number] DX/CHEST SINGLE (PORTABL E) Exam Date: 01/26/18 [...] COPY TO: SAMUEL ARIAS MD ABDOMEN COMPLETE [address] [address] Patient Name: KEVIN LOMELI MR #: [id number] : 0 1995 Age/Sex: 22/M Req #: [id number] Adm Physician: ANA CAMEJO MD Ordered by: Yordy Page NP Report #: [id number] Locati on: MED/SURG Room/Bed: 106-1 Procedure: [id number] US/ US ABDOMEN COMPLETE Exam Date: 11/10/17 [...] 11/10/17 140 Transcribed By: GABY on 11/10/17 140 COPY TO: [facility] CHEST SINGLE (PORTABLE) [place] [address] Patient Name: KEVIN LOMELI MR #: [id number] : 0 1995 Age/Sex: 22/M Req #: [id number] Adm Physician: Ordered by: OLIVA AJCOB MD Report #: [id number] Location: Room/Bed: Procedure: [id number] DX/CHEST SINGLE (PORTABLE) Exa m Date: 11/08/17 [...]
[2020-07-17] MEDS ORDERED: CEFTRIAXONE SOD 1 GM/NS 50 ML 50 ML IV ONE (16:00)
[2020-07-17] MEDS: CEFTRIAXONE SOD 1 GM VIAL IV SCH (16:06)
--- NOTE | 2020-07-17 16:16 | NUR ---
Report to [facility] and [facility] called to transport pt
--- NOTE | 2020-07-17 16:29 | Emergency Department Note ---
History of Present Illnes History of Present Illness Chief Complaint: General Medicine Complaints History of Present Illness This is a 25 year old male Chief Complaint Comment Reports that he is in DKA and has not taken his meds for a week as he cannot afford them . Historian: Patient Arrival Mode: Car Onset (how long ago): week(s) (1) Location: [place] Quality: ALL OVER Radiation: Denies non-radiation, Denies back, Denies neck, Denies extremity, Denies abdomen, Denies periumbilical, Denies flank, Denies proximal, Denies distal, Denies other Severity: severe Onset quality: gradual Duration (how long): week(s) (1) Timing of current episode: constant Progression: worsening Chronicity: new Context: Denies recent illness, Denies recent surgery, Denies recent immobilization, Denies recent travel, Denies trauma/injury, Denies new medications, Denies hx of DVT/PE, Denies non-compliance w/ medications, Denies other Relieving factors: none Exacerbating factors: none Associated symptoms: Reports nausea/vomiting, Reports weakness; Denies denies other symptoms, Denies confusion, Denies chest pain, Denies cough, Denies diaphoresis, Denies fever/chills, Denies headaches, Denies loss of appetite, Denies malaise, Denies rash, Denies seizure, Denies shortness of breath, Denies syncope, Denies other Treatments prior to arrival: none Past Medical/Family History Physician Review I have reviewed the patient's past medical and family history. Any updates have been documented here. Past Medical History Recent Fever: No Clinical Suspicion of Infectio: No New/Unexplained Change in Ment: No Past Medical History: Diabetes Other Medical History: GASTROPARESIS Past Surgical History: None Other Surgery: plastic surgery on eyelids as a child Social History Smoking Cessation: Never Smoker Counseling Performed: No Alcohol Use: None Any Illegal Drug Use: No Other Last Tetanus: UNKNOWN Any Pre-Existing Lines (PICC,: No Review of Systems Review of Systems Constitutional: Reports as per HPI EENTM: Reports no symptoms Cardiovascular: Reports no symptoms Respiratory: Reports no symptoms Gastrointestinal: Reports as per HPI Genitourinary: Reports no symptoms Musculoskeletal: Reports no symptoms Integumentary: Reports no symptoms Neurological: Reports no symptoms Psychological: Reports no symptoms Endocrine: Reports no symptoms Hematological/Lymphatic: Reports no symptoms Physical Exam Related Data Allergies: Coded Allergies: No Known Allergies (Unverified , 05/19/19) Triage Vital Signs Vital Signs Date Time Temp Pulse Resp B/P (MAP) Pulse Ox O2 Delivery O2 Flow Rate FiO2 07/17/20 13:57 96.7 125 41 178/107 100 Room Air Vital signs reviewed: Yes Physical Exam CONSTITUTIONAL Constitutional: Present cachectic, Present distressed, Present ill appearing HENT HENT: Present normocephalic, Present atraumatic, Present oropharynx clear/moist, Present nose normal HENT L/R: Present left ext ear normal, Present right ext ear normal EYES Eyes: Reports PERRL, Reports conjunctivae normal NECK Neck: Present ROM normal PULMONARY Pulmonary: Present other ([place]) CARDIOVASCULAR Cardiovascular: Present heart sounds normal, Present capillary refill normal, Present normal rate, Present tachycardia GASTROINTESTINAL Abdominal: Present soft, Present nontender, Present bowel sounds normal GENITOURINARY Genitourinary: Present exam deferred SKIN Skin: Present warm, Present dry MUSCULOSKELETAL Musculoskeletal: Present ROM normal NEUROLOGICAL Neurological: Present alert, Present oriented x 3, Present no gross motor or sensory deficits PSYCHOLOGICAL Psychological: Present mood/affect normal, Present judgement normal Results Laboratory Result Diagram: 07/17/20 1422 07/17/20 1422 Laboratory Laboratory Tests Test 07/17/20 15:48 07/17/20 14:22 Bedside Glucose 406 mg/dL (70-120) White Blood Count 25.84 x10e3/uL (4.8-10.8) Red Blood Count 5.38 x10e6/uL (4.3-5.7) Hemoglobin 16.9 g/dL (14.0-18.0) Hematocrit 50.0 % (38.2-49.6) Mean Corpuscular Volume 92.9 fL (81-99) Mean Corpuscular Hemoglobin 31.4 pg (28-32) Mean Corpuscular Hemoglobin Concent 33.8 g/dL (31-35) Red Cell Distribution Width 12.8 % (11.7-14.4) Platelet Count 266 x10e3/uL (140-360) Neutrophils (%) (Auto) 79.9 % (38.7-80.0) Lymphocytes (%) (Auto) 8.4 % (18.0-39.1) Monocytes (%) (Auto) 9.6 % (4.4-11.3) Eosinophils (%) (Auto) 0.0 % (0.0-6.0) Basophils (%) (Auto) 0.4 % (0.0-1.0) Neutrophils # (Auto) 20.7 (2.1-6.9) Lymphocytes # (Auto) 2.2 (1.0-3.2) Monocytes # (Auto) 2.5 (0.2-0.8) Eosinophils # (Auto) 0.0 (0.0-0.4) Basophils # (Auto) 0.1 (0.0-0.1) Absolute Immature Granulocyte (auto 0.44 x10e3/uL (0-0.1) Sodium Level 119 mmol/L (136-145) Potassium Level 5.8 mmol/L (3.5-5.1) Chloride Level 82 mmol/L (98-107) Carbon Dioxide Level < 5 mmol/L (22-29) Anion Gap 37.8 mmol/L (8-16) Blood Urea Nitrogen 46 mg/dL (7-26) Creatinine 2.14 mg/dL (0.72-1.25) Estimat Glomerular Filtration Rate 45 ML/MIN (60-) BUN/Creatinine Ratio 21 (6-25) Glucose Level 675 mg/dL (74-118) Calcium Level 8.7 mg/dL (8.4-10.2) Total Bilirubin 0.4 mg/dL (0.2-1.2) Aspartate Amino Transf (AST/SGOT) 20 IU/L (5-34) Alanine Aminotransferase (ALT/SGPT) 21 IU/L (0-55) Alkaline Phosphatase 168 IU/L (40-150) Total Protein 8.5 g/dL (6.5-8.1) Albumin 5.4 g/dL (3.5-5.0) Globulin 3.1 g/dL (2.3-3.5) Albumin/Globulin Ratio 1.7 (0.8-2.0) Lab results reviewed: Yes Critical Care Time Total Critical Care Time (min): 90 Critical care time exclusive o: separately billable procedures Critcal care necessary due to: dehydration, metabolic failure Critcal care time spent by me: develop tx plan w patient/surrogate, discussion w consultants, discussion w primary provider, evaluation patient response to tx, examination of patient, obtaining hx from patient/surrogate, order/perform tx or interventions, order/review laboratory studies Assessment & Plan Medical Decision Making MDM DKA Reassessment Reassessment REEVALUATE BP 145/85 HR 122 RR 22 IVF ROCEPHIN Assessment & Plan Final Impression: (1) DKA (diabetic ketoacidoses) (2) Tachycardia Depart Disposition: ADMITTED Last Vital Signs Date Time Temp Pulse Resp B/P (MAP) Pulse Ox O2 Delivery O2 Flow Rate FiO2 07/17/20 13:57 96.7 125 41 178/107 100 Room Air Home Meds Active Scripts Insulin Detemir (LEVEMIR) 100 Unit/1 Ml Vial, 14 UNITS SC Q12H for 30 Days Prov:JEREMIE BANKS MD 07/26/18 Reported Medications Metoclopramide Hcl (REGLAN) 5 Mg Tablet, 5 MG PO ACHS 01/30/19 Ondansetron Hcl (ONDANSETRON HCL) 4 Mg Tablet, 4 MG PO TID PRN for NAUSEA AND VOMITING 01/30/19 Insulin Lispro (HUMALOG) 100 Unit/1 Ml Cartridge 05/16/18 Medications in the ED Sodium Chloride 1,000 ml @ 0 mls/hr Q0M STAT IV Last administered on 07/17/20at 15:50; Admin Dose 1,000 MLS/HR; Start 07/17/20 at 14:10; Stop 07/17/20 at 14:12; Status DC Sodium Chloride 1,000 ml @ 0 mls/hr Q0M STAT IV ; Start 07/17/20 at 14:10; Stop 07/17/20 at 14:12; Status DC Insulin Human Regular 15 unit ONCE ONCE IV Last administered on 07/17/20at 15:50; Admin Dose 15 UNIT; Start 07/17/20 at 14:30; Stop 07/17/20 at 14:31; Status DC Sodium Chloride 2,000 ml @ ud STK-MED ONCE .ROUTE ; Start 07/17/20 at 14:30; Stop 07/17/20 at 14:25; Status DC Insulin Human Regular 10 unit ONCE ONCE IV Last administered on 07/17/20at 14:35; Admin Dose 10 UNIT; Start 07/17/20 at 15:30; Stop 07/17/20 at 15:31; Status DC ABHINAV JUAREZ MD Jul 17, 2020 16:29
[2020-07-17] MEDS ORDERED: SODIUM CHLORIDE 0.9% 100 ML ONE (16:48)
[2020-07-17] MEDS ORDERED: SODIUM BICARBONATE 8.4% INJ 50 ML SYR IV STA ×2 (17:44→20:34)
[2020-07-17] MEDS: SODIUM CHLORIDE 0.9% 1000ML 1,000 ML IV SCH (18:00)
[2020-07-17] MEDS ORDERED: ZOLPIDEM TARTRATE 5 MG TAB PO PRN (18:15)
--- NOTE | 2020-07-17 18:20 | NUR ---
Patient arrived to ICU at 1730, patient's temp 94 axillary, Ivan hugger started. Temp warmed up to 96.[address] Jarvis updated on patient status, orders given for repeat labs and Bicarb. Dr. Carissa navarro and Dr. Caceres consulted. Per dr. Caceres use his protocol if BG <400. BG 237, insulin drip infusing at 3 units/hr. Dr. Carissa navarro came and evaluated patient, orders given for COVID test, urine samples, IV fluids. Dr. jarvis ordered additional amp of bicarb. Labs to be repeated at [address] Jarvis.
[2020-07-17 18:27] LABS: BLOOD UREA NITROGEN 40 mg/dL (7-26); BUN/CREATININE RATIO 26 (6-25); CHLORIDE 98 mmol/L (98-107); CREATININE, SERUM 1.56 mg/dL (0.72-1.25); EST GLOMERULAR FILTRATION RATE > 60 ML/MIN (60-); GLUCOSE 335 mg/dL (74-118)
[2020-07-17 18:51] LABS: ANION GAP 28.5 mmol/L (8-16)
[2020-07-17 18:52] LABS: CALCIUM 7.1 mg/dL (8.4-10.2); POTASSIUM 4.5 mmol/L (3.5-5.1); SODIUM 127 mmol/L (136-145)
[2020-07-17 18:53] LABS: CARBON DIOXIDE < 5 mmol/L (22-29)
[2020-07-17 18:54] LABS: BAND NEUTROPHILS % (MANUAL) 16 %; LYMPHOCYTES % (MANUAL) 13 % (19-48); MONOCYTES % (MANUAL) 3 % (3.4-9.0); NEUTROPHILS % (MANUAL) 68 % (40-74)
[2020-07-17 18:55] LABS: PLATELET ESTIMATE ADEQUATE; PLATELET MORPHOLOGY COMMENT NORMAL; RBC MORPHOLOGY COMMENT NORMAL
[2020-07-17] MEDS ORDERED: SODIUM BICARBONATE 8.4% INJ 50 ML SYR IV NR (19:01)
--- NOTE | 2020-07-17 19:03 | Diagnostic Imaging Report ---
EXAMINATION: CHEST SINGLE (PORTABLE) INDICATION: leukocytosis COMPARISON: Multiple prior chest x-ray examinations most recent dated 06/22/2019. FINDINGS: AP view TUBES and LINES: None. . LUNGS/PLEURA: There is new right basilar opacity which could represent pneumonia. There is no pleural effusion or pneumothorax. HEART AND MEDIASTINUM: The cardiomediastinal silhouette is unremarkable. BONES AND SOFT TISSUES: No acute osseous lesion. Soft tissues are unremarkable. UPPER ABDOMEN: No free air under the diaphragm. IMPRESSION: New right basilar opacity which could represent pneumonia Signed by: Juan Carlos Munroe MD on 07/17/2020 6:59 PM
[2020-07-17 19:20] LABS: BASOPHILS # (AUTO) 0.1 (0.0-0.1); BASOPHILS % 0.4 % (0.0-1.0); EOSINOPHILS % 0.1 % (0.0-6.0); HEMATOCRIT 45.8 % (38.2-49.6); HEMOGLOBIN 15.9 g/dL (14.0-18.0); LYMPHOCYTES # (AUTO) 2.6 (1.0-3.2); LYMPHOCYTES % 11.9 % (18.0-39.1); MEAN CORPUSCULAR HEMOGLOBIN 31.2 pg (28-32); MEAN CORPUSCULAR HGB CONC 34.7 g/dL (31-35); MONOCYTES # (AUTO) 1.4 (0.2-0.8); MONOCYTES % 6.3 % (4.4-11.3); NEUTROPHILS # (AUTO) 17.3 (2.1-6.9); RED CELL DISTRIBUTION WIDTH 12.5 % (11.7-14.4)
[2020-07-17 19:27] LABS: CLARITY,URINE SL CLOUDY (CLEAR); COLOR,URINE YELLOW (YELLOW)
[2020-07-17 19:28] LABS: BILIRUBIN,URINE NEGATIVE (NEGATIVE); KETONES,URINE >=160 (NEGATIVE); LEUKOCYTE ESTERASE ,URINE NEGATIVE (NEGATIVE); NITRITE,URINE NEGATIVE (NEGATIVE); PROTEIN,URINE DIPSTICK 1+ (NEGATIVE); URINE UROBILINOGEN 0.2 mg/dL (0.2 - 1)
[2020-07-17 19:29] LABS: MEAN CORPUSCULAR VOLUME 89.8 fL (81-99); PLATELET COUNT 175 x10e3/uL (140-360)
[2020-07-17 19:29] LABS: WBC,URINE (MAN) 0-5 /HPF (0-5)
[2020-07-17 19:30] LABS: BACTERIA,URINE FEW /HPF; EPITHELIAL CELLS,URINE FEW /LPF; MUCUS,URINE FEW (RARE); RBC,URINE 0-5 /HPF (0-5)
[2020-07-17 19:40] LABS: BLOOD UREA NITROGEN 34 mg/dL (7-26); BUN/CREATININE RATIO 25 (6-25); CALCIUM 7.5 mg/dL (8.4-10.2); CHLORIDE 103 mmol/L (98-107); CREATININE, SERUM 1.35 mg/dL (0.72-1.25); EST GLOMERULAR FILTRATION RATE > 60 ML/MIN (60-); GLUCOSE 210 mg/dL (74-118); POTASSIUM 4.3 mmol/L (3.5-5.1); SODIUM 131 mmol/L (136-145)
[2020-07-17 19:51] LABS: ANION GAP 27.3 mmol/L (8-16)
[2020-07-17 19:52] LABS: CARBON DIOXIDE < 5 mmol/L (22-29)
--- NOTE | 2020-07-17 20:39 | NUR ---
Lab results called to Dr Hicks, new orders received. Will repeat labs at midnight and call results at that time
--- NOTE | 2020-07-17 23:07 | Consultation ---
DATE OF CONSULTATION: Pulmonary Critical Care Consultation CHIEF COMPLAINT: Nausea, vomiting, and diabetic ketoacidosis. HISTORY OF PRESENT ILLNESS: The patient is a 25-year-old man. He has type 1 diabetes. Apparently, he ran out of insulin several days ago. He has noticed fatigue, nausea, and vomiting along with decreased appetite. He came to the emergency department and was found to have a bicarb of less than 5 with a pH of 7.16 and elevated anion gap of 38. He also had an elevated blood sugar. He was received intravenous fluids followed by an insulin drip. PAST MEDICAL HISTORY: Diabetes type 1. PAST SURGICAL HISTORY: Noncontributory. ALLERGIES: NO KNOWN DRUG ALLERGIES. SOCIAL HISTORY: The patient does not smoke or drink. FAMILY HISTORY: Noncontributory. REVIEW OF SYSTEMS: The patient is afebrile. He has no headache. He is not complaining of any neck pain or chest pain. He has no difficulty breathing. There was some nausea and vomiting, but no abdominal pain. He has no leg edema. PHYSICAL EXAMINATION: VITAL SIGNS: The blood pressure is 143/90 and the saturation is 100% on 2 L. The pulse is 120 to 125, and the respiratory rate is in the mid 20s. HEENT: Shows no facial swelling or erythema. LYMPHATIC: Shows no submandibular, cervical, or supraclavicular adenopathy. CARDIAC: Reveals regular rate and rhythm. Normal S1, S2. LUNGS: Auscultation of lungs reveals decreased breath sounds at the bases. There is no wheezing. ABDOMEN: Soft and nontender. There is no rebound or guarding. EXTREMITIES: Shows no leg edema or calf tenderness. There is no cyanosis or clubbing. SKIN: Shows no rashes. LABORATORY DATA: Glucose is 675 with a bicarb of less than 5 and FKX-sy-vxfygvxnmp ratio 46 to 2.14. Chloride is 82 and the potassium is 5.8. The sodium is 119. White blood cell count is 25.8, hemoglobin is 16.9. The platelet count is 266. IMPRESSION: 1. Diabetic ketoacidosis. 2. Acute kidney injury. 3. Hyponatremia. PLAN: The patient has received several L of IV fluid. 1. Continue insulin drip. 2. Repeat CMP and CBC. 3. Continue current antibiotics and repeat white blood cell count in a.m. MD SALLY Palencia/ESMER /[id number]
[2020-07-18] VITALS (24 sets, daily range): BP systolic 95–140; BP diastolic 72–106
[2020-07-18] MEDS ORDERED: DOCUSATE SODIUM 100 MG CAP PO PRN (00:30)
[2020-07-18] MEDS ORDERED: MELATONIN 5 MG TABLET PO PRN (00:30)
[2020-07-18] MEDS: SODIUM CHLORIDE 0.9% 1000ML 1,000 ML IV SCH (01:13)
[2020-07-18 01:29] LABS: ALANINE AMINOTRANSFERASE 15 IU/L (0-55); ALBUMIN/GLOBULIN RATIO 2.1 (0.8-2.0); ALKALINE PHOSPHATASE 89 IU/L (40-150); ANION GAP 20.1 mmol/L (8-16); BLOOD UREA NITROGEN 20 mg/dL (7-26); BUN/CREATININE RATIO 20 (6-25); CALCIUM 7.7 mg/dL (8.4-10.2); CARBON DIOXIDE 11 mmol/L (22-29); CHLORIDE 104 mmol/L (98-107); CREATININE, SERUM 1.01 mg/dL (0.72-1.25); EST GLOMERULAR FILTRATION RATE > 60 ML/MIN (60-); GLUCOSE 84 mg/dL (74-118); POTASSIUM 4.1 mmol/L (3.5-5.1); SODIUM 131 mmol/L (136-145)
[2020-07-18] MEDS ORDERED: SODIUM BICARBONATE 8.4% INJ 50 ML SYR IV STA (01:50)
[2020-07-18] MEDS ORDERED: CEFTRIAXONE SOD 1 GM/NS 50 ML 50 ML IV ONE (03:18)
[2020-07-18] MEDS: CEFTRIAXONE SOD 1 GM VIAL IV SCH (03:25)
[2020-07-18] MEDS ORDERED: MAGNESIUM SULF 1GRAM/DEXTROSE 100 ML IV ONE (04:25)
[2020-07-18] MEDS: ONDANSETRON HCL INJ 2MG/ML 2ML 2 MG/ML VIAL IV PRN ×2 (07:24→13:53)
[2020-07-18 08:16] LABS: BASOPHILS % 0.2 % (0.0-1.0); HEMATOCRIT 37.4 % (38.2-49.6); HEMOGLOBIN 13.8 g/dL (14.0-18.0); LYMPHOCYTES # (AUTO) 0.9 (1.0-3.2); LYMPHOCYTES % 7.1 % (18.0-39.1); MEAN CORPUSCULAR HEMOGLOBIN 30.9 pg (28-32); MEAN CORPUSCULAR HGB CONC 36.9 g/dL (31-35); MEAN CORPUSCULAR VOLUME 83.9 fL (81-99); MONOCYTES # (AUTO) 1.1 (0.2-0.8); MONOCYTES % 8.5 % (4.4-11.3); NEUTROPHILS # (AUTO) 10.5 (2.1-6.9); NEUTROPHILS % 83.6 % (38.7-80.0); PLATELET COUNT 119 x10e3/uL (140-360); RED BLOOD COUNT 4.46 x10e6/uL (4.3-5.7); RED CELL DISTRIBUTION WIDTH 12.4 % (11.7-14.4)
[2020-07-18 08:37] LABS: ALANINE AMINOTRANSFERASE 13 IU/L (0-55); ALBUMIN 3.8 g/dL (3.5-5.0); ALKALINE PHOSPHATASE 76 IU/L (40-150); ANION GAP 16.1 mmol/L (8-16); BLOOD UREA NITROGEN 15 mg/dL (7-26); BUN/CREATININE RATIO 18 (6-25); CALCIUM 7.4 mg/dL (8.4-10.2); CARBON DIOXIDE 17 mmol/L (22-29); CHLORIDE 101 mmol/L (98-107); CREATININE, SERUM 0.85 mg/dL (0.72-1.25); EST GLOMERULAR FILTRATION RATE > 60 ML/MIN (60-); GLUCOSE 78 mg/dL (74-118); POTASSIUM 3.1 mmol/L (3.5-5.1); SODIUM 131 mmol/L (136-145)
[2020-07-18] MEDS ORDERED: KETOROLAC TROMETHAMINE 30 MG/ML VIAL IV ONE (08:41)
[2020-07-18] MEDS ORDERED: INSULIN REGULAR, HUMAN 3ML VL 100 UNIT in SODIUM CHLORIDE 0.45% 100 ML 100 ML IV SCH ×2 (08:45)
[2020-07-18] MEDS ORDERED: DEXTROSE 50% SYRINGE 50 ML IV PRN (08:45)
--- NOTE | 2020-07-18 08:53 | NUR ---
Pt with complaint of nausea, medicated and improved. Then c/o "chest pain that is not indigestion". Called and spoke with Dr Hicks. Orders received for: CTA, EKG, Cardiac enzymes to evaluate, and Tordol X1.
[2020-07-18] MEDS ORDERED: D5.45%NS/KCL 20MEQ 1,000 ML IV SCH (09:00)
[2020-07-18] MEDS ORDERED: POTASSIUM CHLORIDE 20 MEQ in DEXTROSE 5%/0.45% SOD CHL 1,000 ML IV SCH (09:00)
[2020-07-18 09:10] LABS: CREATINE KINASE MB 3.3 ng/mL (0-5.0)
[2020-07-18] MEDS ORDERED: INSULIN REGULAR, HUMAN 3ML VL 100 UNIT in SODIUM CHLORIDE 0.9% 100 ML 100 ML IV SCH ×4 (09:30→14:15)
--- NOTE | 2020-07-18 09:53 | NUR ---
GAVE PACKET OF INFORMATION WITH COMMUNITY [employer] FOR ASSISTANCE WITH LOW TO NO INCOME TO PATIENT. RESOURCES THAT PATIENT MAY BE ABLE TO FOLLOW UP UPON DISCHARGE. PT EDUCATED ON EACH RESOURCE AND UNDERSTANDING HOW TO FOLLOW UP TO SEE IF QUALIFIED FOR EACH RESOURCE.
[2020-07-18] MEDS ORDERED: IOPAMIDOL 370 MG/ML 200 ML INFUS..BTL INJ ONE ×2 (10:19→17:15)
[2020-07-18] MEDS ORDERED: SODIUM CHLORIDE 0.9% 50ML 0 ML ONE (10:19)
--- NOTE | 2020-07-18 11:07 | Diagnostic Imaging Report ---
EXAM: CT Chest WITH contrast 07/18/2020 10:35 AM INDICATION: R/O PE, R/O aortic dissection COMPARISON: Multiple prior chest x-rays including most recent on 07/17/2020. TECHNIQUE: Chest was scanned utilizing a multidetector helical scanner from the lung apex through the level of the adrenal glands with administration of IV contrast. Coronal and sagittal reformations were obtained. Routine protocol was performed. IV CONTRAST: 100 mL of Omnipaque 300 COMPLICATIONS: None RADIATION DOSE: Total DLP: 450.34 mGy*cm Estimated effective dose: (DLP x 0.014 x size factor) mSv CTDIvol has been reviewed. It is below the limits set by the Radiation Protocol Committee (RPC). Dose modulation, iterative reconstruction, and/or weight based adjustment of the mA/kV was utilized to reduce the radiation dose to as low as reasonably achievable. FINDINGS: LINES/ TUBES: None. VASCULAR: The examination is not optimized for evaluation of the thoracic aorta. As a result, aortic dissection cannot be ruled out. The ascending and descending aorta have normal caliber measuring approximately 3.2 cm and 2.5 cm, respectively. There are no filling defects within the pulmonary arteries to the segmental level. The pulmonary trunk has normal caliber measuring 2.4 cm. LUNGS AND AIRWAYS: There are multifocal groundglass and consolidative airspace opacities most pronounced at the bilateral lung bases. These findings are compatible with multifocal pneumonia. The central airways are patent and the trachea is midline. PLEURA: The pleural spaces are clear. HEART AND MEDIASTINUM: The thyroid gland is normal. No mediastinal, hilar or axillary lymphadenopathy. The heart is normal in size. There is no pericardial effusion. UPPER ABDOMEN: Unremarkable. BONES: The visualized bony thorax is within normal limits. SOFT TISSUES: There is circumferential thickening of the distal esophageal wall. Soft tissues otherwise normal. IMPRESSION: 1. No pulmonary embolism to the segmental level. 2. Examination is not optimized for evaluation of the thoracic aorta. Aortic dissection cannot be ruled out on current study. If there is high clinical suspicion for aortic dissection, repeat chest CT (aortic dissection protocol) should be considered for more adequate assessment. 3. Multifocal groundglass and consolidative airspace opacities most pronounced at the lung bases. Findings compatible with multifocal pneumonia, likely viral. 4. Circumferential wall thickening of the distal esophagus. This may be due to underdistention or esophageal inflammation. Recommend referral to gastroenterology to determine need for upper endoscopy. Signed by: Tristian Lovett MD on 07/18/2020 11:04 AM
[2020-07-18 14:17] LABS: ANION GAP 15.1 mmol/L (8-16); BLOOD UREA NITROGEN 12 mg/dL (7-26); BUN/CREATININE RATIO 14 (6-25); CALCIUM 7.8 mg/dL (8.4-10.2); CARBON DIOXIDE 20 mmol/L (22-29); CHLORIDE 99 mmol/L (98-107); CREATININE, SERUM 0.88 mg/dL (0.72-1.25); EST GLOMERULAR FILTRATION RATE > 60 ML/MIN (60-); GLUCOSE 141 mg/dL (74-118); MAGNESIUM 2.1 MG/DL (1.3-2.1); POTASSIUM 3.1 mmol/L (3.5-5.1); SODIUM 131 mmol/L (136-145)
--- NOTE | 2020-07-18 15:20 | Consultation ---
DATE OF CONSULTATION: 07/18/2020 Endocrine Consult[address] Patient of Dr. Caputo. Thank you very much for referring this patient. HISTORY OF PRESENT ILLNESS: This is a 25-year-old black gentleman who was referred to me for evaluation of uncontrolled diabetes mellitus and diabetic ketoacidosis. The patient is a known case of type 1 diabetes mellitus. According to information from the patient, he was on insulin pump at one time. He did not have any money, so he took regular and NPH insulin. The patient has not taken any insulin for last couple of days. At the time of admission, the patient was having severe nausea, vomiting, and leg cramps. His blood sugar was found to be 675 and his anion gap was 37.8. His sodium was 119. The patient's blood count was also significant at the time of admission. According to the information, the patient states he does not use drugs and he does not smoke. PHYSICAL EXAMINATION: GENERAL: Today, the patient is alert, awake, little bit apprehensive, looks slightly dehydrated. VITAL SIGNS: His heart rate is around 100, blood pressure is 130/80 mmHg. HEENT: Essentially unremarkable. Thyroid is palpable. Clinically, he is near euthyroid. CHEST: Bilateral vesicular breathing. He has mild bronchospasm. CARDIAC: First and second heart sounds. There are no 3rd or 4th heart sounds. Ejection systolic murmur sound grade 2/6. EXTREMITIES: The patient has evidence of diabetic sensory neuropathy in both lower extremities. CLINICAL IMPRESSION: Diabetes mellitus type 1, uncontrolled with complications, noncompliance with medications, diabetic ketoacidosis, dehydration, rule out coronavirus disease-19 positive infection. PLAN: The patient has been started on IV fluids, insulin drip, monitor his blood sugars closely. We will also do a hemoglobin A1c and thyroid profile. We will also start him on the full liquid diet and advance diet slowly. Thanks for referring this patient. I will be follow this patient with you. MD VIRGILIO Alfonso/MODL /[id number]
[2020-07-18] MEDS ORDERED: ASPIRIN 81 MG CHEW TAB PO ONE (15:24)
--- NOTE | 2020-07-18 15:29 | NUR ---
1350 elevated troponin at 8.3, spoke with Dr Hicks, he ordered a redraw stat. Now troponin 11.4. Spoke with Dr Hicks he has ordered consult Dr Huitron, stat aspirin and start heparin drip.
[2020-07-18] MEDS ORDERED: HEPARIN 25,000 UNIT 800 UNIT in DEXTROSE 5% 250ML 250 ML IV SCH ×2 (15:30→15:45)
[2020-07-18] MEDS ORDERED: HEPARIN 25,000 UNIT DRIP IV ONE (15:37)
[2020-07-18 15:52] LABS: FREE T4 (FREE THYROXINE) 0.97 ng/dL (0.8-1.8); THYROID STIMULATING HORMONE 0.329 uIU/mL (0.350-4.940)
[2020-07-18] MEDS ORDERED: CLOPIDOGREL BISULFATE 75 MG TAB PO ONE (16:00)
[2020-07-18] MEDS: CEFTRIAXONE SOD 1 GM/NS 50 ML 50 ML IV SCH (16:30)
[2020-07-18 17:00] LABS: INR 0.97; PROTHROMBIN TIME 13.4 seconds (11.9-14.5)
[2020-07-18] MEDS ORDERED: PANTOPRAZOLE SOD 40 MG TABEC PO SCH (17:00)
[2020-07-18 17:01] LABS: PARTIAL THROMBOPLASTIN TIME 25.4 seconds (23.8-35.5)
[2020-07-18] MEDS: DEXTROSE 50% SYRINGE 50 ML IV PRN (17:01)
[2020-07-18] MEDS ORDERED: HEPARIN SOD (PORCINE) 1000 UNIT/ML 30ML ONE (17:14)
[2020-07-18] MEDS ORDERED: MIDAZOLAM HCL 2 MG/2 ML VIAL ONE (17:14)
[2020-07-18] MEDS ORDERED: BIVALRIUDIN 250 MG/VIAL VIAL IV ONE (17:14)
[2020-07-18] MEDS ORDERED: LIDOCAINE HCL 2% LOCAL 20 ML VIAL ONE (17:15)
[2020-07-18] MEDS ORDERED: SODIUM CHLORIDE 0.9% 50ML 50 ML ONE (17:15)
[2020-07-18] MEDS ORDERED: HEPARIN SOD/SOD CHLORIDE 2,000 ML ONE (17:15)
[2020-07-18] MEDS ORDERED: NITROGLYCERIN/D5W 200 MCG/ML 250 ML ONE (17:15)
[2020-07-18] MEDS ORDERED: SODIUM CHLORIDE 0.9% 1000ML 1,000 ML ONE (17:15)
[2020-07-18] MEDS ORDERED: FENTANYL CITRATE/PF 100MCG/2 ML INJ ONE (17:15)
[2020-07-18] MEDS ORDERED: DEXTROSE 50% SYRINGE 50 ML IV ONE (17:20)
--- NOTE | 2020-07-18 17:36 | NUR ---
Out to geoscience laboratory technician. Dr Akila Huitron has been in with pt.
[2020-07-18] MEDS ORDERED: ONDANSETRON HCL INJ 2MG/ML 2ML 2 MG/ML VIAL IV PRN (18:15)
--- NOTE | 2020-07-18 18:26 | History and Physical ---
CHIEF COMPLAINT: Nausea, vomiting, and diabetic ketoacidosis. HISTORY OF PRESENT ILLNESS: A 25-year-old male, very noncompliant with his insulin regimen. He has type 1 diabetes. He came in at the freestanding emergency room with complaints of nausea, vomiting, and abdominal pain. The patient was found to have anion gap metabolic acidosis, found to be in DKA. The patient was then transferred to the [facility] ICU and started on an insulin drip. Endocrinology and Pulmonary Critical Care were consulted. On arrival here, the patient was doing well. He was stable. He was found to have a bicarbonate less than 5 requiring multiple amps of sodium bicarbonate. Bicarb is improved after bicarbonate was given. The patient was seen and evaluated at bedside on the medical floor, currently doing well with no other issues at this time. REVIEW OF SYSTEMS: Pertinent positives nausea, vomiting, and abdominal pain. The rest of 14-point review of systems are reviewed with the patient and are negative. ALLERGIES: NO KNOWN DRUG ALLERGIES. MEDICATIONS: The patient does not have any current medications. He ran out of all his insulin. PAST MEDICAL HISTORY: Type 1 diabetes since the age of 17, gastroparesis, nausea, vomiting. PAST SURGICAL HISTORY: Reports none. FAMILY HISTORY: Hypertension and diabetes. SOCIAL HISTORY: No drugs, no alcohol, does not smoke. Good social support. PHYSICAL EXAMINATION: VITAL SIGNS: Temperature is 98.5, pulse 115, respiratory rate 15, blood pressure 125/98, pulse ox 100% on room air. GENERAL: Not in acute distress, alert and oriented x3, cooperative on examination. HEENT: Head is normocephalic and atraumatic. Eyes; pupils are equal, round and reactive to light bilaterally. Extraocular movements are intact bilaterally. Throat, no evidence of any erythema or exudates in the posterior pharynx. Has poor dentition. NECK: Supple. Good range of motion throughout. PULMONARY: Clear to auscultation bilaterally. No wheezing, no rales, no rhonchi no crackles appreciated. CARDIOVASCULAR: Positive S1, S2. No murmurs, rubs, or gallops appreciated. ABDOMEN: Soft and nontender to palpation. Bowel sounds present. MUSCULOSKELETAL: Strength is 5/5 throughout. No evidence of any muscle deficits on examination. SKIN: Intact. Warm to touch. Good cap refill. PSYCHIATRIC: Normal affect and mood. EXTREMITIES: No edema. Good range of motion throughout. LABORATORY FINDINGS: White count 12, hemoglobin is 13.8, hematocrit 37, platelets of 119,000. When he came in his white count was 25, but downtrended and likely to be stressed induced. Chemistry sodium 131, potassium 3.1, chloride 99, bicarb 20, anion gap of 15, BUN 12, creatinine 0.88, glucose is 141. LFTs within normal range. TSH 0.329. Urinalysis shows specific gravity is 1.030, 1+ protein, 1+ glucose. Serology doran virus, the first one was not detected and second one is pending. MICROBIOLOGY: None. IMAGING STUDIES: Chest x-ray shows a new right basilar opacity, which could represent pneumonia. IMPRESSION: 1. Diabetic ketoacidosis. 2. Nausea, vomiting, and dehydration. 3. Pseudohyponatremia secondary to hyperglycemia. 4. Acute kidney injury secondary to dehydration. 5. Type 1 diabetic, uncontrolled. PLAN: At this time, the patient is currently in the ICU on DKA protocol. He is on insulin drip as well as IV fluids as per protocol. Pulmonary Critical Care was consulted including Endocrinology. Continue with aggressive IV fluid hydration normal saline boluses. Get repeat labs in the morning. His white count is slightly elevated, could be secondary to stressed induced from his nausea and vomiting, but he is now on IV Rocephin, which we will go ahead and continue with. Continue with n.p.o. for now. Once his nausea and vomiting improves, we will consider clear liquid diet advance diabetic diet. Encourage ambulation. CONSULTANTS: Endocrinology and Pulmonary Critical Care. MD DANA Jj/MODL /[id number]
--- NOTE | 2020-07-18 18:27 | NUR ---
Returned from manager labor relations. Right groin site, clean, dry, no hematoma. Pulses palpable weak, no noted complication.
--- NOTE | 2020-07-18 18:31 | Progress Note ---
DATE: 07/18/2020 ADDENDUM: The patient also had a stat CTA of the chest that showed no evidence of any pulmonary embolism. This was ordered this morning because he was complaining of chest pain. No pulmonary embolism was noted. There were some multifocal ground-glass consolidation and airspace opacities, mostly pronounced at the lung bases. Compatible for possible multifocal pneumonia. He is on IV antibiotics with that. He does have a circumferential wall thickening in the distal cells, which may be secondary to under distention or esophageal inflammation. Otherwise, we also discussed the troponins that were ordered on the previous dictation and Cardiology has been notified. A repeat stat EKG is pending. He is on anticoagulation and anti-platelet therapy. MD DANA Jj/CHUNL /[id number]
[2020-07-18] MEDS: DEXTROSE 5%/0.45% SOD CHL 1,000 ML IV SCH (18:35)
[2020-07-18] MEDS: SUCRALFATE 1 GM/10 ML SUSP NG SCH ×2 (18:39→20:55)
[2020-07-18] MEDS: METOCLOPRAMIDE HCL 10 MG/2ML VIAL IV SCH (18:39)
--- NOTE | 2020-07-18 18:51 | Progress Note ---
DATE: 07/18/2020 Quick Progress Note SUBJECTIVE: Early this morning, the patient complained of severe chest pain, prompting cardiac enzymes and EKG. His vital signs were stable when this occurred. He was slightly tachycardic when he was complaining of chest pain to the nursing staff. A stat CTA of the chest showed no evidence of any pulmonary embolism, but does show a dilated distal esophagus prompting GI consultation. His cardiac enzymes were found to be positive as high as peak of 11 of troponins. A stat consult to Cardiology has been performed. The patient was given aspirin 325 mg p.o. chewable x1 as well as starting on him on ACS heparin protocol. The patient denies any history of cardiac disease in the past. Cardiology has been notified. A stat echo has been ordered as well as oral Plavix loading dose has been provided. In my review of the EKG, there is no evidence of any ST-elevation. There is evidence of some flipped T-waves in the V4, V5 as well including V3. There is going to be another repeat stat EKG for today. We are going to continue with cardioprotective medications including the Plavix, aspirin and heparin drip. Cardiology has been notified. Once the next repeat EKG has been performed, we will review with Cardiology. Currently, he is chest pain free when I evaluated him. In fact, he says he has no other issues. He has never experienced any kind of chest pain like this before. I did also consult GI for a dilated esophagus. Currently, the patient is very stable. His heart rate is 99. He is saturating 100% on room air, respiratory rate 17, blood pressure is 115/82. I discussed plan of care with nursing staff at bedside. We will continue to monitor his cardiac enzymes throughout the day and communicate with Cardiology. MD DANA Jj/ESMER /[id number]
--- NOTE | 2020-07-18 19:57 | Consultation ---
DATE OF CONSULTATION: 07/18/2020 Cardiology Consultation REASON FOR CONSULTATION: Chest pain and elevated troponin. HISTORY OF PRESENT ILLNESS: Mr. Lomeli is a 25-year-old gentleman with past medical history of type 1 diabetes for the past eight years. He has run out of his insulin regimen recently and came in with DKA with pH of 7.1, bicarb of less than 5, and anion gap of greater than 30. He has been treated with DKA protocol and his labs are getting better and his gap is slowly closing. He reports developing left-sided chest discomfort, moderate in nature, no radiations associated with malaise and was very difficult to describe. The pain lasted for about 8 hours in entirety. He had his cardiac biomarkers checked and troponin went from a baseline of 0.061 up to 11.41. Cardiology at that point in time was consulted. EKG was checked to evaluate and it looks like he is having some dynamic ST changes in the inferior lateral precordial leads. At that point in time, we decided to proceed with emergent heart catheterization and cardiac catheterization is being called. We are in the process of bringing him over for emergent heart catheterization. Procedure, risks, and benefits explained. Alternatives discussed. PAST MEDICAL HISTORY: Type 1 diabetes diagnosed eight years ago. PAST SURGICAL HISTORY: Denies. FAMILY HISTORY: Mother and father both alive and well. Father has psoriasis. There is no premature family history of coronary artery disease. SOCIAL HISTORY: He is a nonsmoker. Denies any alcohol or illicit drug use. ALLERGIES: NO KNOWN DRUG ALLERGIES. HOME MEDICATIONS: Currently he has not been taking any, but namely was on insulin therapy, could not get refills. REVIEW OF SYSTEMS: GENERAL: Denies any fevers, chills, or weight changes. HEENT: No headaches, visual complaints, sore throat, or stuffy nose. RESPIRATORY: Denies any pleuritic chest pain, has shortness of breath as per his HPI. CARDIOVASCULAR: As per HPI. GI: Positive for nausea. No vomiting. No bright red blood per rectum or melena. HEMATOLOGY: No easy bruising or bleeding. ID: No known infectious issues. NEUROLOGIC: Denies any focal weakness, numbness, tingling seizures, headache, TIA, or stroke. Remainder review of systems negative otherwise mentioned. PHYSICAL EXAMINATION: VITAL SIGNS: Height of 71 inches, weight of 134 pounds, BMI is 18.7, temperature of 98.4, pulse of 105, respiratory rate of 20, blood pressure 123/98, O2 saturation 99% on room air. GENERAL: This is a skinny, emaciated denise who is currently in just mild distress. HEENT: Normocephalic and atraumatic. Pupils are equal, round, and reactive to light. Extraocular movements are intact. Oropharynx is clear. NECK: No elevation of jugular venous pulsation. No carotid bruits. CARDIOVASCULAR: Tachycardic. Normal S1, S2. Soft 1/6 systolic murmur at the left lower sternal border. LUNGS: Clear to auscultation. ABDOMEN: Skinny, scaphoid, nontender, nondistended. Normoactive bowel sounds. BACK: No costovertebral angle tenderness. EXTREMITIES: Warm with 1+ bilateral radial pulses, 1 to 2+ femoral pulses, 1+ pedal pulses. NEUROLOGIC: Cranial nerves II through XII are grossly intact. Strength seemingly is preserved and is nonfocal. PSYCH: Normal fluent speech. Appropriate affect. No anxiety or delusions. LABORATORY DATA: White count of 12.6, hemoglobin 13.8, hematocrit 37.4, and platelets of 119,000. Sodium 131, potassium 3.1, chloride 99, bicarb 20, BUN 12, creatinine 0.88, glucose of 141, A1c of 9.2%, AST-18, ALT 13, alkaline phosphatase 76, total protein of 5.7, albumin of 3.8. TSH last check 0.329. Lipase is less than 4. Troponin went from 0.061 to 11.41. INR is 0.97. UA is positive for ketones and glucose. Gonzalez virus is not detected. Chest CT reveals multifocal ground-glass consolidative processes at the bases, could be multifocal pneumonia. Circumferential wall thickening of the distal esophagitis may be under distention or esophageal inflammation. Chest x-ray shows right basilar opacity. EKG reveals tachycardia with inferior lateral ST changes. DIAGNOSES: 1. Elevated troponin with dynamic EKG changes concerning for an acute coronary syndrome, however, myocarditis could be in the differential. 2. DKA secondary to insulin non utilization, says that he had financial difficulty. 3. Type 1 diabetes for at least 8 years. 4. Underweight. 5. Hypokalemia. 6. Thrombocytopenia. PLAN/RECOMMENDATIONS: 1. At this point in time, the most prudent course of action is to take him to the cardiac catheterization laboratory for definitive ischemic evaluation with a coronary angiogram. The patient is albeit very young, but has been diabetic type 1 for at least eight years. We will go ahead and figure out what is going on with his coronary anatomy. 2. If his coronary arteries are clean, then this would clinch the diagnosis of a myopericarditis as the ideology of the troponin elevation and chest discomfort. 3. DKA management per Endocrine Service. 4. Aggressive risk factor modification medical therapy. 5. Further plan/recommendations to follow. MD ОЛЬГА Win/ESMER /[id number]
[2020-07-18 21:09] LABS: CREATINE KINASE MB 73.8 ng/mL (0-5.0)
--- NOTE | 2020-07-18 21:27 | Operative Report ---
DATE OF PROCEDURE: 07/18/2020 SURGEON: Jaylan Huitron MD CARDIAC CATHETERIZATION REPORT PATIENT CLINICAL PROFILE: This is a 25-year-old gentleman with a history of type 1 diabetes mellitus with past 8 years, who presented to the hospital with diabetic ketoacidosis, currently on an insulin as well as D5 drip in the setting of the medication noncompliance due to financial stressors. He was consulted to Cardiology due to elevated troponin of 11, as well as EKG that was suspicious for ST-segment elevation. He was subsequently emergently brought to the cardiac catheterization lab after discussion of risks, benefits, and alternatives, for which he was agreeable to proceed with the catheterization. PREPROCEDURE DIAGNOSES: 1. Troponin elevation. 2. Tachycardia. 3. Diabetic ketoacidosis. 4. Hyponatremia. POSTPROCEDURE DIAGNOSES: 1. Troponin elevation. 2. Tachycardia. 3. Diabetic ketoacidosis. 4. Hyponatremia. 5. Myopericarditis. PROCEDURES PERFORMED: 1. Selective coronary angiography. 2. Left heart catheterization with LV gram, measurement of LVEDP and aortic valve pull back. ANESTHESIA USED: Moderate sedation with Versed. DESCRIPTION OF PROCEDURE: The right groin was palpated and using fluoroscopic guidance, a micropuncture set was used to cannulate the right common femoral artery with a 4-Panamanian sheath. We then subsequently used a 4-Panamanian diagnostic JL4 catheter over a J-wire and cannulated the left vein with obtaining standard views of the left coronary system. We then switched catheters to a diagnostic 3DRC 4-Panamanian and cannulated the right coronary artery with standard views. We then subsequently used a 4-Panamanian pigtail catheter and obtained an LV gram as well as LVEDP and aortic valve pull back. FINDINGS: 1. Left main coronary artery is without significant disease. 2. LAD coronary artery is without significant disease. 3. Circumflex coronary artery is dominant without significant disease. 4. The right coronary artery is non-dominant without significant disease. 5. The LV gram indicates hyperkinesis of the apical as well as mid anterior segments with an approximate LVEF of 35%. The LVEDP is 18 mmHg. There is no significant gradient on aortic valve pull back. DISPOSITION: Return to the nursing unit. ESTIMATED BLOOD LOSS: 20 mL. CONDITION: Stable, yet critical due to underlying DKA. COMPLICATIONS: None. SPECIMENS: None. PLAN: Obtain echocardiogram to further evaluate the LV ejection fraction as well as the heart. The patient likely has some component of myopericarditis or a stress cardiomyopathy. We do not attempt to treat this with heparin and this has been discontinued. The patient is to continue aspirin. Then, we will adjust our plan based on what the medical course dictates. MD CLAUDE Hilario/MODL /[id number]
--- NOTE | 2020-07-18 23:14 | NUR ---
Critical Lab: Notified Dr Huitron @ 0679 of Troponin 16.4. No new orders received.
[2020-07-19] VITALS (26 sets, daily range): BP systolic 82–122; BP diastolic 51–81
[2020-07-19] MEDS: METOCLOPRAMIDE HCL 10 MG/2ML VIAL IV SCH ×4 (00:15→17:44)
[2020-07-19] MEDS: DEXTROSE 50% SYRINGE 50 ML IV PRN (00:16)
[2020-07-19] MEDS: PANTOPRAZOLE 40 MG 10ML VIAL IV SCH ×3 (02:06→21:48)
[2020-07-19] MEDS: DEXTROSE 5%/0.45% SOD CHL 1,000 ML IV SCH (02:55)
[2020-07-19] MEDS: CEFTRIAXONE SOD 1 GM/NS 50 ML 50 ML IV SCH ×2 (04:25→16:55)
[2020-07-19 04:44] LABS: BASOPHILS % 0.1 % (0.0-1.0); HEMATOCRIT 33.7 % (38.2-49.6); HEMOGLOBIN 12.5 g/dL (14.0-18.0); LYMPHOCYTES # (AUTO) 1.5 (1.0-3.2); LYMPHOCYTES % 17.6 % (18.0-39.1); MEAN CORPUSCULAR HEMOGLOBIN 30.6 pg (28-32); MEAN CORPUSCULAR HGB CONC 37.1 g/dL (31-35); MEAN CORPUSCULAR VOLUME 82.4 fL (81-99); MONOCYTES # (AUTO) 0.6 (0.2-0.8); MONOCYTES % 6.7 % (4.4-11.3); NEUTROPHILS # (AUTO) 6.5 (2.1-6.9); NEUTROPHILS % 75.3 % (38.7-80.0); PLATELET COUNT 123 x10e3/uL (140-360); RED BLOOD COUNT 4.09 x10e6/uL (4.3-5.7); RED CELL DISTRIBUTION WIDTH 12.6 % (11.7-14.4)
[2020-07-19 05:05] LABS: ALANINE AMINOTRANSFERASE 18 IU/L (0-55); ALBUMIN 3.5 g/dL (3.5-5.0); ALBUMIN/GLOBULIN RATIO 1.9 (0.8-2.0); ALKALINE PHOSPHATASE 64 IU/L (40-150); ANION GAP 13.7 mmol/L (8-16); BLOOD UREA NITROGEN 9 mg/dL (7-26); BUN/CREATININE RATIO 12 (6-25); CALCIUM 7.7 mg/dL (8.4-10.2); CARBON DIOXIDE 23 mmol/L (22-29); CHLORIDE 99 mmol/L (98-107); CHOL/HDL RATIO 2.1 (3.9-4.7); CHOLESTEROL 117 MD/DL (0-199); CREATININE, SERUM 0.76 mg/dL (0.72-1.25); EST GLOMERULAR FILTRATION RATE > 60 ML/MIN (60-); GLUCOSE 142 mg/dL (74-118); HDL CHOLESTEROL 57 MG/DL (40-60); LDL CHOLESTEROL 52 MG/DL (60-130); SODIUM 133 mmol/L (136-145); TRIGLYCERIDES 41 MG/DL (0-149)
[2020-07-19 05:07] LABS: POTASSIUM 2.7 mmol/L (3.5-5.1)
[2020-07-19] MEDS: SUCRALFATE 1 GM/10 ML SUSP NG SCH ×4 (07:24→21:48)
[2020-07-19] MEDS: D5.45%NS/KCL 20MEQ 1,000 ML IV SCH ×2 (07:24→17:44)
[2020-07-19] MEDS: ASPIRIN 81 MG ENTERIC COATED PO SCH (09:37)
[2020-07-19 12:30] LABS: ANION GAP 14.7 mmol/L (8-16); BLOOD UREA NITROGEN 8 mg/dL (7-26); BUN/CREATININE RATIO 12 (6-25); CALCIUM 7.6 mg/dL (8.4-10.2); CARBON DIOXIDE 26 mmol/L (22-29); CHLORIDE 96 mmol/L (98-107); CREATININE, SERUM 0.66 mg/dL (0.72-1.25); EST GLOMERULAR FILTRATION RATE > 60 ML/MIN (60-); GLUCOSE 139 mg/dL (74-118); SODIUM 134 mmol/L (136-145)
[2020-07-19 12:32] LABS: POTASSIUM 2.7 mmol/L (3.5-5.1)
[2020-07-19] MEDS ORDERED: POTASSIUM CHLORIDE 20MEQ/100ML 200 ML IV ONE (12:45)
--- NOTE | 2020-07-19 13:19 | NUR ---
PT DISCUSSED IN MDR. PT IS NO LONGER ELIGIBLE TO BE CARRIED ON HIS MOTHER'S INSURANCE DUE TO AGE. DISCUSSED PT BEING ELIGIBLE FOR DISABILITY. CALL TO LEAH HARMON @ [phone]. STATES SHE HAD ALREADY LOOKED AT THE PT, BUT DENIED DUE TO LACK OF DOCUMENTATION TO SUPPORT THE T QUALIFYING FOR DISABILITY. DISCUSSED GASTROPARESIS, ENDOCARDITIS, AND AN EF 35%. UNABLE TO SEE ECHO RESULTS. LEAH STATES HE WOULD NEED A DX THAT COULD PROVE THIS PROBLEM WOULD LAST AT LEAST 12MOS. CALL TO LOUISE / BEDSIDE RN. STATES SHE WILL PASS ON TO THE DOCS REGARDING WHAT TYPE OF DOCUMENTATION IS NEEDED TO QUALIFY THE PT FOR DISABILITY. WILL CONT TO FOLLOW.
[2020-07-19] MEDS ORDERED: INSULIN LISPRO 100 UNIT/1 ML 3ML VIAL SQ ONE (14:30)
[2020-07-19] MEDS ORDERED: POTASSIUM CHLORIDE 20 MEQ TAB CR PO SCH (14:45)
[2020-07-19] MEDS ORDERED: POTASSIUM CHLORIDE 20 MEQ TAB CR PO NR ×2 (15:00→15:30)
--- NOTE | 2020-07-19 15:00 | NUR ---
A total of 60 meq potassium has been ordered by Dr Dick Hicks for the afternoon serum potassium 2.7. 20meq KCL IV x1 and 40 meq KCL PO x1. Serum potassium recheck this evening.
--- NOTE | 2020-07-19 15:20 | NUR ---
Blood pressure disparity. The upper extremities demonstrating systolic bp of 90's, the lower extremities demonstrating systolic bp's of 130's. The patient reports that the dialysis nurses commonly use his right leg due to this on going problem. Dr Carissa Irby notified and ordered doppler studies. Dr Carissa Irby has advised to use the right leg at this time for consistency of blood pressures. Addendum: 07/19/20 at 1537 by Shanita Mims RN Disregard this note, it was written on the wrong patient. Error in entry.
[2020-07-19] MEDS ORDERED: INSULIN LISPRO 100 UNIT/1 ML 3ML VIAL SQ SCH (16:30)
[2020-07-19] MEDS ORDERED: POTASSIUM CHLORIDE 20MEQ/15ML UDC NG ONE (17:00)
[2020-07-19] MEDS: INSULIN LISPRO 100 UNIT/1 ML 3ML VIAL SQ SCH (17:43)
[2020-07-19] MEDS ORDERED: INSULIN GLARGINE 100 UNITS/ML VIAL SQ SCH (21:00)
[2020-07-19] MEDS ORDERED: POTASSIUM CHLORIDE 20 MEQ TAB CR PO STA ×2 (21:32→21:35)
[2020-07-19] MEDS ORDERED: SODIUM CHLORIDE 0.9% 1000ML 1,000 ML IV ONE (21:45)
[2020-07-20] VITALS (10 sets, daily range): BP systolic 91–128; BP diastolic 71–98
[2020-07-20] MEDS: METOCLOPRAMIDE HCL 10 MG/2ML VIAL IV SCH ×3 (00:23→12:04)
--- NOTE | 2020-07-20 01:42 | Progress Note ---
DATE: 07/19/2020 Medicine Progress Note SUBJECTIVE: The patient is doing well today. He did have low potassium, which was placed. He had left heart catheterization yesterday, which showed myocarditis, secondary to COVID-19. He is otherwise doing well with no complaints. No complaints of chest pain. PHYSICAL EXAMINATION: VITAL SIGNS: Temperature is 98, pulse 87, respiratory rate is 18, blood pressure is 106/81, pulse ox 100% on room air. GENERAL: No acute distress. Alert and oriented x3. Cooperative on examination. HEENT: Head is normocephalic and atraumatic. Eyes; pupils are equal, round and reactive to light bilaterally. Extraocular movements are intact bilaterally. Throat, no evidence of any erythema or exudates in the posterior pharynx. Has poor dentition. NECK: Supple. Good range of motion throughout. PULMONARY: Clear to auscultation bilaterally. No wheezing, rales, or rhonchi. No crackles appreciated. CARDIOVASCULAR: Positive S1 and S2. No murmurs, rubs, or gallops appreciated. ABDOMEN: Soft, nondistended, nontender to palpation. Bowel sounds present. MUSCULOSKELETAL: Strength is 5/5 throughout. LABORATORY FINDINGS: Show CBC stable. Chemistry reviewed; sodium 134, potassium 2.7, replaced, chloride 96, bicarb 26, anion gap of 14, BUN is 8, creatinine 0.66, glucose is 240, calcium is 7.6. Coronavirus x2 was found to be negative. MICROBIOLOGY: Blood cultures, no growth. IMAGING STUDIES: Nothing new. IMPRESSION: 1. Diabetic ketoacidosis with associated nausea and vomiting-resolved. 2. Pseudohyponatremia secondary to diabetic ketoacidosis. 3. Acute kidney injury secondary to dehydration. 4. Type 1 diabetic, controlled. 5. Myopericarditis. PLAN: At this time, he is still on a DKA protocol, insulin drip. He was started on long-acting Lantus and premeal insulin. Endocrinology is following. No further workup needed by Pulmonary. As per Cardiology, the patient has myopericarditis. We will discharge on aspirin. No further workup needed. He is doing very well now. Replace potassium. Discharge home soon over the next several days. JiMD DANA Prajapati/MODL /[id number]
[2020-07-20] MEDS: D5.45%NS/KCL 20MEQ 1,000 ML IV SCH ×2 (02:56→12:04)
[2020-07-20] MEDS: CEFTRIAXONE SOD 1 GM/NS 50 ML 50 ML IV SCH (04:32)
[2020-07-20 04:51] LABS: EOSINOPHILS % 0.4 % (0.0-6.0); HEMATOCRIT 29.8 % (38.2-49.6); HEMOGLOBIN 11.1 g/dL (14.0-18.0); LYMPHOCYTES # (AUTO) 2.4 (1.0-3.2); LYMPHOCYTES % 45.8 % (18.0-39.1); MEAN CORPUSCULAR HEMOGLOBIN 32.6 pg (28-32); MEAN CORPUSCULAR HGB CONC 37.2 g/dL (31-35); MEAN CORPUSCULAR VOLUME 87.4 fL (81-99); MONOCYTES # (AUTO) 0.3 (0.2-0.8); MONOCYTES % 5.7 % (4.4-11.3); NEUTROPHILS # (AUTO) 2.5 (2.1-6.9); NEUTROPHILS % 47.9 % (38.7-80.0); PLATELET COUNT 67 x10e3/uL (140-360); RED BLOOD COUNT 3.41 x10e6/uL (4.3-5.7); RED CELL DISTRIBUTION WIDTH 13.2 % (11.7-14.4)
[2020-07-20 05:10] LABS: ANION GAP 13.8 mmol/L (8-16); BLOOD UREA NITROGEN 12 mg/dL (7-26); BUN/CREATININE RATIO 18 (6-25); CALCIUM 7.4 mg/dL (8.4-10.2); CARBON DIOXIDE 23 mmol/L (22-29); CHLORIDE 101 mmol/L (98-107); CREATININE, SERUM 0.67 mg/dL (0.72-1.25); EST GLOMERULAR FILTRATION RATE > 60 ML/MIN (60-); GLUCOSE 309 mg/dL (74-118); POTASSIUM 3.8 mmol/L (3.5-5.1); SODIUM 134 mmol/L (136-145)
--- NOTE | 2020-07-20 05:44 | NUR ---
Transferred patient to room 187 via wheelchair with mold washer. MABEL Pickard at bedside to receive patient. Patient placed on bedside monitor.
[2020-07-20] MEDS: INSULIN LISPRO 100 UNIT/1 ML 3ML VIAL SQ SCH ×4 (08:17→12:04)
[2020-07-20] MEDS: SUCRALFATE 1 GM/10 ML SUSP NG SCH ×2 (08:19→12:04)
[2020-07-20] MEDS: PANTOPRAZOLE 40 MG 10ML VIAL IV SCH (08:19)
[2020-07-20] MEDS: ASPIRIN 81 MG ENTERIC COATED PO SCH (08:19)
[2020-07-20] MEDS ORDERED: INSULIN GLARGINE 100 UNITS/ML VIAL SQ SCH (21:00)
--- NOTE | 2020-07-21 04:19 | Discharge Summary ---
FINAL DISCHARGE DIAGNOSES: 1. Diabetic ketoacidosis. 2. Pseudohyponatremia secondary to diabetic ketoacidosis. 3. Acute kidney injury secondary to dehydration. 4. Type 1 diabetes, uncontrolled. 5. Myopericarditis. 6. Gastroparesis. 7. . CONSULTANTS: Cardiology, GI, Endocrinology, Pulmonary and Critical Care. PHYSICAL EXAMINATION: VITAL SIGNS: Temperature 98, pulse 81, respiratory rate is 16, blood pressure 129/82 pulse ox 100% on room air. LABORATORY FINDINGS: Show white count 5.3, hemoglobin 11, hematocrit 29.8, platelets of 173. Coagulation; PT 13, INR 0.97, PTT 35. Chemistry; sodium 134, potassium 3.8, chloride 101, bicarb 23, anion gap of 13, BUN is 12, creatinine 0.67, glucose 149, calcium 7.4. His troponins peaked at 11, previously 0.329. LDL was 52. Albumin was 3.5. CK-MB 53, CK 562. Urinalysis negative . Serologies, coronavirus x2 was negative. Microbiology, blood cultures were negative in greater than 48 hours. IMAGING STUDIES: Chest x-ray . CT of the chest protocol showed no PE. Shows multifocal ground-glass consolidation in the lung bases. Compatible for multifocal pneumonia likely viral. The patient is status post and likely to be acid reflux. HOSPITAL COURSE: A 25-year-old male with known type 1 diabetic was at the freestanding emergency room with nausea, vomiting, abdominal pain, found to be in DKA. The patient was found to have anion gap metabolic acidosis from underlying DKA and then transferred to the ICU for further management and care. Pulmonary Critical Care and Cardiology were consulted. The patient was under the DKA protocol. He was on insulin drip, fluids. His gap closed and he improved throughout the hospital course. Per Endocrinology, he was discharged on NPH and regular insulin, his sugars improved. He did have complaints of chest pain while here in the ICU, prompting stat chest CTA, which shows no evidence of PE. Results are . We did order cardiac enzymes, which was found to be elevated, prompting Cardiology consultation. The patient immediately went to the landscape laborer, which showed elevated troponin levels and was found to have a myopericarditis. Post catheterization, I spoke with the photographic colorist. The patient did not have any CAD with mild pericarditis likely secondary to a viral illness in the past that he was exposed and possibly COVID-19 before. He recommended just aspirin daily and with close followup. He also showed concerns for acid reflux as well as a dilated distal esophagus prompting GI consultation. In fact, the patient improved throughout the hospital course and I spoke with GI prior to being discharged and recommended outpatient followup in his office. He was found to have a leukocytosis on admission and was presumed initially to be stressed induced, but imaging shows some evidence of pneumonia and which he was on IV antibiotics. His white count improved. He was afebrile and was doing well and was discharged on oral antibiotics. On discharge, the patient was doing well back to baseline with no complaints. He has been cleared for discharge by all consultants. On the day of discharge, vital signs were stable, labs reviewed and stable. The patient was seen, evaluated, and examined thoroughly on the day of discharge. No other complaints. The patient verbalized understanding and agreed to plan of care to follow up accordingly as an outpatient with primary care physician in 1 week and respiratory consult as described above in about 2 weeks' time. As per Endocrinology, he will be discharged on insulin, as per GI, he will be discharged on Protonix and Reglan. As per Cardiology, he will be discharged on aspirin. No further workup needed by Pulmonary Critical Care. MEDICATIONS: See med reconciliation form. DISPOSITION: Home. CONDITION: Stable. DIET: Heart healthy. In the event of worsening symptoms, the patient advised to come back to the ED for further evaluation. Discharge summary took greater than 35 minutes. MD DANA Jj/ESMER /[id number]
== END 2020-07-20 16:32 | disposition home or self-care (01) | DRG 637 ==
LOC: FSED 14:15 → ERHOLD 15:42 → ICU 17:29 → IMCU 07-20 05:30
PROVIDERS: ADMIT Internal Medicine; ATTEND Internal Medicine
PROC: 4A023N7 Measurement of Cardiac Sampling and Pressure, Left Heart, Percutaneous Approach (ICD-10-PCS; principal; 2020-07-18)
PROC: B2111ZZ Fluoroscopy of Multiple Coronary Arteries using Low Osmolar Contrast (ICD-10-PCS; 2020-07-18)
PROC: B2151ZZ Fluoroscopy of Left Heart using Low Osmolar Contrast (ICD-10-PCS; 2020-07-18)
DX: E10.10 Type 1 diabetes mellitus with ketoacidosis without coma (principal); J18.9 Pneumonia, unspecified organism; N17.9 Acute kidney failure, unspecified; I31.9 Disease of pericardium, unspecified; Z68.1 Body mass index [BMI] 19.9 or less, adult; K31.84 Gastroparesis; Z79.4 Long term (current) use of insulin; T38.3X6A Underdosing of insulin and oral hypoglycemic [antidiabetic] drugs, initial encounter; Z91.120 Patient's intentional underdosing of medication regimen due to financial hardship; Z83.3 Family history of diabetes mellitus; Z82.49 Family history of ischemic heart disease and other diseases of the circulatory system; Z11.59 Encounter for screening for other viral diseases; E86.0 Dehydration; R63.6 Underweight; D69.6 Thrombocytopenia, unspecified; E10.43 Type 1 diabetes mellitus with diabetic autonomic (poly)neuropathy
CPT/HCPCS: 36415; 71045; 71260; 80048; 80053; 80061; 81001; 81003; 82550; 82553; 82948; 83036; 83605; 83735; 84132; 84439; 84443; 84484; 85025; 85610; 85730; 87040; 93005; 93306; 93458; 99152; 99285; C1887; J0583; J0696; J1644; J1815; J1817; J1885; J2001; J2250; J2405; J2765; J3010; J3475; J3480; J7030; J7050; J7799; Q9967; U0002